=== PATIENT | male | born 1940 | race Caucasian/White ===

== ENCOUNTER 2023-03-09 10:30 | Emergency (ER) | payer MEDICARE, SELFPAY ==
[2023-03-09 10:42] VITALS: BP 125/70; PULSE 60; RESP 22; TEMP 36.7; O2SAT 98; BMI 20.7
--- NOTE | 2023-03-09 10:49 | XR_ITS ---
[address] [address] Patient Name: PORFIRIO GUSMAN MRN: [id number] date: 1940 Sex: M Assigned Patient Location: ER Current Patient Location: ER Accession/Order Number: [id number] Exam Date: 03/09/2023 12:27 Report Date: 03/09/2023 12:49 At the request of: YAHIR BERMUDEZ Procedure: XR lumbar spine 2-3V EXAMINATION: XR lumbar spine 2-3V, [id number] HISTORY: atraumatic pain COMPARISON: None. FINDINGS: There are 5 nonrib-bearing lumbar-type vertebral bodies. Partial sacralization of the L5 vertebral body. No acute fracture or suspicious osseous lesion. Grade 1 versus grade 2 anterolisthesis of L4 on L5. Mild levoscoliosis centered at L3. Mild intervertebral disc height loss throughout the lumbar spine with moderate osteophytosis at L2-L3 and mild/moderate osteophytosis at L3-L4 and L1-L2. Severe calcified atherosclerosis of the abdominal aorta. Several curvilinear radiopaque foci projecting over the abdomen on the lateral view. Moderately above-average colonic stool burden. XR/XR lumbar spine 2-3V IMPRESSION: 1. No acute osseous abnormality. 2. Moderate lumbar spondylosis. 3. Anterolisthesis of L4 on L5. 4. Moderately above-average colonic stool burden. Electronically authenticated by: MARYLU EDWARDS Date: 03/09/2023 12:49
--- NOTE | 2023-03-09 10:50 | ED.BACK1 ---
HPI - Back Pain/Injury General Chief Complaint: Back Pain/Injury Stated Complaint: BACK PAIN Time Seen by Provider: 03/09/23 10:38 Source: patient and family Mode of arrival: walk-in Limitations: no limitations History of Present Illness HPI Narrative: 82-year-old male presents for lower back pain. He states is mostly in the middle but it goes out to the sides. He's had it for 7-10 days and there was no injury or unusual activity. It doesn't radiate into his legs and the pain is moderate. No upper back pain or dysuria or hematuria. Related Data Previous Rx's Medication Instructions Recorded etodolac 400 mg tablet (Lodine) 400 mg PO Q12H PRN pain #20 tabs 03/09/23 Allergies Allergy/AdvReac Type Severity Reaction Status Date / Time bacitracin Allergy Intermediate Verified 03/09/23 10:45 [From Neosporin ([id number]-[id number])] neomycin Allergy Intermediate Verified 03/09/23 10:45 [From Neosporin ([id number]-tha-cqomd)] polymyxin B Allergy Intermediate Verified 03/09/23 10:45 [From Neosporin ([id number]-jfb-[id number])] Review of Systems ROS Narrative A ten point review of systems is negative except as noted above. PFSH PFSH Social History Smoking status: Never smoker Exam Narrative Exam Narrative: Nurses note and vital signs reviewed and patient is not hypoxic. General: The patient appears well and in no apparent distress. Patient is resting comfortably on cart. Skin: Warm, dry, no pallor noted. There is no rash noted. Head: Normocephalic, atraumatic Eye: Normal conjunctiva, no drainage Ears, Nose, Mouth, and Throat: oral mucosa is moist. Nares patent. Mouth without vesicles. Ear canals patent. Tm's without Erythema Cardiovascular: not tachycardic Respiratory: Patient is in no distress, no accessory muscle use, lungs are clear to auscultation, no wheezing, rales or rhonchi Back: no bruise or rash. GI: soft and nontender Musculoskeletal: The patient has no evidence of calf tenderness, no pitting edema, symmetrical pulses noted bilaterally Neurological: A&O, normal speech Psychiatric: Cooperative Constitutional Vital Signs, click to edit/add: Last Vital Signs Temp 98.0 F 03/09/23 10:42 Pulse 60 03/09/23 10:42 Resp 22 03/09/23 10:42 BP 125/70 03/09/23 10:42 Pulse Ox 98 03/09/23 10:42 O2 Del Method Room Air 03/09/23 10:42 Course Vital Signs Vital signs: Vital Signs Temperature 98.0 F 03/09/23 10:42 Pulse Rate 60 03/09/23 10:42 Respiratory Rate 22 03/09/23 10:42 Blood Pressure 125/70 03/09/23 10:42 Pulse Oximetry 98 03/09/23 10:42 Oxygen Delivery Method Room Air 03/09/23 10:42 Temperature 98.0 F 03/09/23 10:42 Pulse Rate 60 03/09/23 10:42 Respiratory Rate 22 03/09/23 10:42 Blood Pressure 125/70 03/09/23 10:42 Pulse Oximetry 98 03/09/23 10:42 Oxygen Delivery Method Room Air 03/09/23 10:42 MDM - Back Pain/Injury MDM Narrative Medical decision making narrative: urinalysis indicates microscopic hematuria. Lumbar films showed no acute findings other than constipation. Because of the microscopic hematuria blood work was ordered which was nonspecific. CAT scan also ordered because of the microscopic hematuria and large renal cysts are noted, unchanged per radiologist. Urine culture is ordered and pending. I suspect that the microscopic hematuria is chronic but I am uncertain. He was recommended MiraLAX and was prescribed dopamine. Treatment diagnosis and follow-up were discussed with the patient. Differential Diagnosis Differential diagnosis: Likely strain of lumbar region, renal colic, pyelonephritis and AAA Lab Data Attestation: I reviewed the patient's lab results. Labs: Lab Results 03/09/23 03/09/23 Range/Units 12:36 14:11 WBC 7.2 (4.0-11.0) 10^3/uL RBC 4.33 L (4.70-6.10) 10^6/uL Hgb 13.2 L (14.0-18.0) g/dL Hct 39.3 L (42.0-54.0) % MCV 90.8 (80.0-94.0) fL MCH 30.5 (25.9-34.0) pg MCHC 33.6 (29.9-35.2) g/dL RDW 15.9 H (11.0-15.0) % Plt Count 157 (150-450) 10^3/uL MPV 9.6 (9.5-13.5) fL Neut % (Auto) 63.5 (43.0-75.0) % Lymph % (Auto) 25.1 (20.5-60.0) % Cherry % (Auto) 8.1 (1.7-12.0) % Eos % (Auto) 1.1 (0.9-7.0) % Baso % (Auto) 0.7 (0.2-2.0) % Neut # (Auto) 4.5 (1.4-6.5) 10^3/uL Lymph # (Auto) 1.8 (1.2-3.8) 10^3/uL Cherry # (Auto) 0.6 (0.3-0.8) 10^3/uL Eos # (Auto) 0.1 (0.0-0.7) 10^3/uL Baso # (Auto) 0.1 (0.0-0.1) 10^3/uL Abs Immat Gran (auto) 0.11 H (0.00-0.03) 10^3/uL Imm/Tot Granulo (auto) 1.5 H (0.0-0.5) % Sodium 137 (136-145) mmol/L Potassium 4.1 (3.5-5.1) mmol/L Chloride 99 (98-107) mmol/L Carbon Dioxide 29.8 (21.0-32.0) mmol/L Anion Gap 12.3 BUN 39.0 H (7.0-18.0) mg/dL Creatinine 1.37 H (0.70-1.30) mg/dL Est GFR ( Amer) 60 (>=60) Est GFR (Non-Af Amer) 50 L (>=60) BUN/Creatinine Ratio 28.5 Glucose 174 H (74-106) mg/dL Calcium 8.8 (8.5-10.1) mg/dL Urine Color Yellow (YELLOW) Urine Clarity Slightly cloudy A (CLEAR) Urine pH 6.0 (5.0-9.0) Ur Specific [place] 1.015 (1.005-1.025) Urine Protein Negative (NEG/TRACE) mg/dL Urine Glucose (UA) Negative (NEGATIVE) mg/dL Urine Ketones Negative (NEGATIVE) mg/dL Urine Occult Blood Large A (NEGATIVE) Urine Nitrite Negative (NEGATIVE) Urine Bilirubin Negative (NEGATIVE) Urine Urobilinogen 0.2 (0.2-1.0) EU/dL Ur Leukocyte Esterase Negative (NEGATIVE) Urine RBC 75-100 A (0-2) #/HPF Urine WBC 0-2 A (NONE SEEN) #/HPF Ur Squamous Epith Cells None seen (NONE/RARE) #/LPF Urine Crystals None seen (None Seen) #/HPF Urine Bacteria None seen (NONE SEEN) #/HPF Urine Casts None seen (NONE SEEN) #/LPF Urine Mucus None seen (NONE SEEN) Imaging Data CT scan - abdomen: Radiologist's impression: bilateral large renal cysts, constipation Discharge Plan Discharge Chief Complaint: Back Pain/Injury Clinical Impression: Low back pain, Hematuria, microscopic, Constipation Patient Disposition: Home, Self-Care Time of Disposition Decision: 15:23 Condition: Good Mode of Transportation: Private Vehicle Prescriptions / Home Meds: New etodolac [Lodine] 400 mg tablet 400 mg PO Q12H PRN (Reason: pain) Qty: 20 0RF Instructions: Constipation (ED), Hematuria (ED), Back Pain (ED) Additional Instructions: MiraLAX for constipation Stand Alone Forms: Portal Instructions Referrals: CHRISTO ORELLANA [Primary Care Provider] - 1 week
[2023-03-09 13:10] LABS: Bilirubin Urine NEGATIVE (NEGATIVE); Blood Urine LARGE (NEGATIVE); Color Urine YELLOW (YELLOW); Glucose Urine UA NEGATIVE (NEGATIVE); Ketones Urine NEGATIVE (NEGATIVE); Leukocyte Esterase Urine NEGATIVE (NEGATIVE); Nitrite Urine NEGATIVE (NEGATIVE); Protein Urine NEGATIVE (NEG/TRACE); Specific Gravity Urine 1.015 (1.005-1.025); Urobilinogen Urine 0.2 EU/dL (0.2-1.0)
[2023-03-09 13:11] LABS: Clarity Urine SLIGHTLY CLOUDY (CLEAR); Urine Microscopic Indicated YES
[2023-03-09 13:15] LABS: Bacteria Urine NONE SEEN #/HPF (NONE SEEN); Cast Seen? NONE SEEN #/LPF (NONE SEEN); Crystals Seen? None Seen #/HPF (None Seen); Mucus Urine NONE SEEN (NONE SEEN); RBC Urine 75-100 #/HPF (0-2); Squamous Epithelial Cell Urine NONE SEEN #/LPF (NONE/RARE); WBC Urine 0-2 #/HPF (NONE SEEN)
--- NOTE | 2023-03-09 13:51 | CT_ITS ---
[address] [address] Patient Name: PORFIRIO GUSMAN MRN: [id number] date: 1940 Sex: M Assigned Patient Location: ER Current Patient Location: Accession/Order Number: [id number] Exam Date: 03/09/2023 14:30 Report Date: 03/09/2023 15:11 At the request of: YAHIR BERMUDEZ Procedure: CT abdomen pelvis wo con EXAMINATION: CT abdomen pelvis wo con HISTORY: hematuria ; bilateral low back pain COMPARISON: CT abdomen pelvis 09/15/2022 TECHNIQUE: Axial, Coronal, and Sagittal images were obtained without and/or with IV contrast as indicated by examination type. Dose reduction techniques were achieved by using automated exposure control and/or adjustment of mA and/or kV according to patient size and/or use of iterative reconstruction technique. FINDINGS: LUNG BASES: Stable 4.0 cm bulla within left lower lobe. LIVER: No enlargement, atrophy, suspicious density, or significant focal lesion. BILIARY: No dilatation or calcification. PANCREAS: No lesion, fluid collection, or abnormal duct dilatation. SPLEEN: No enlargement or focal lesion. ADRENALS: Adreniform hypertrophy bilaterally. KIDNEYS: Stable right renal cysts, largest is 7.9 cm, and nonobstructing stones. Stable left renal cysts, largest is 11.7 cm; no appreciable stones. BOWEL/MESENTERY: Prior resection of proximal ascending colon with small bowel anastomosis. No visible mass, obstruction, or bowel wall thickening. No free air, free fluid, or mesenteric lymphadenopathy. AORTA/VASCULAR: Marked atherosclerotic disease of aorta and branches. No aneurysm. RETROPERITONEUM: No mass or adenopathy. LYMPH NODES: No adenopathy. URINARY BLADDER: No visible focal wall thickening, lesion, or calculus. PELVIC ORGANS: No visible mass. Pelvic organs appropriate for patient age. ABDOMINAL WALL: No mass or hernia. BONES: No bony lesion or fracture. OTHER: Negative. CT/CT abdomen pelvis wo con IMPRESSION: 1.Large bilateral renal cysts and a few nonobstructing right kidney stones; not appreciably changed. No ureteral stones or obstructive uropathy. 2.No acute bowel findings to account for patient's symptoms. 3.Stable chronic changes detailed above. Electronically authenticated by: USHA FERMIN Date: 03/09/2023 15:11
[2023-03-09 14:28] LABS: Basophils Absolute Auto 0.1 10^3/uL (0.0-0.1); Basophils Percent Auto 0.7 % (0.2-2.0); Eosinophils Absolute Auto 0.1 10^3/uL (0.0-0.7); Eosinophils Percent Auto 1.1 % (0.9-7.0); Hematocrit 39.3 % (42.0-54.0); Hemoglobin 13.2 g/dL (14.0-18.0); Immature Granulocytes Abs Auto 0.11 10^3/uL (0.00-0.03); Immature Granulocytes Pct Auto 1.5 % (0.0-0.5); Lymphocytes Absolute Auto 1.8 10^3/uL (1.2-3.8); Lymphocytes Percent Auto 25.1 % (20.5-60.0); Mean Corpuscular HGB Conc 33.6 g/dL (29.9-35.2); Mean Corpuscular Hemoglobin 30.5 pg (25.9-34.0); Mean Corpuscular Volume 90.8 fL (80.0-94.0); Mean Platelet Volume 9.6 fL (9.5-13.5); Monocytes Absolute Auto 0.6 10^3/uL (0.3-0.8); Monocytes Percent Auto 8.1 % (1.7-12.0); Neutrophils Absolute Auto 4.5 10^3/uL (1.4-6.5); Neutrophils Percent Auto 63.5 % (43.0-75.0); Platelet Count 157 10^3/uL (150-450); Red Blood Count 4.33 10^6/uL (4.70-6.10); Red Cell Distribution Width 15.9 % (11.0-15.0); White Blood Count 7.2 10^3/uL (4.0-11.0)
[2023-03-09 14:43] LABS: Anion Gap 12.3; BUN Creatinine Ratio 28.5; Calcium 8.8 mg/dL (8.5-10.1); Carbon Dioxide 29.8 mmol/L (21.0-32.0); Chloride 99 mmol/L (98-107); Estimated GFR (African America 60 (>=60); Estimated GFR (Non-African Ame 50 (>=60); Glucose 174 mg/dL (74-106); Potassium 4.1 mmol/L (3.5-5.1); Sodium 137 mmol/L (136-145)
== END 2023-03-09 15:35 | disposition home or self-care (01) ==
PROVIDERS: Emergency Provider Emergency Medicine; PCP Family Medicine
DX: M54.50 Low back pain, unspecified (principal); K59.00 Constipation, unspecified; R31.29 Other microscopic hematuria
CPT/HCPCS: 36415; 72100; 74176; 80048; 81001; 85025; 87086; 87150; 87186; 99285

== ENCOUNTER 2023-07-14 02:26 | Emergency (ER) | payer MEDICARE, SELFPAY ==
[2023-07-14] MEDS: LIDOCAINE HCL 1%-EPINEPHRINE 1:100,000 20 ML MDV 10 ML INJ (02:30)
[2023-07-14 02:33] VITALS: BP 165/80; PULSE 73; RESP 18; TEMP 36.5; O2SAT 100; BMI 30.4
--- NOTE | 2023-07-14 02:48 | ED.GENADUL1 ---
HPI - General Adult General Chief complaint: Wound/Laceration Stated complaint: actively bleeding in chest Time Seen by Provider: 07/14/23 02:31 Source: patient and family (Son) Mode of arrival: Wheelchair Limitations: no limitations History of Present Illness HPI narrative: Is 83-year-old male is brought emergency department by his son for evaluation of active bleeding Is left anterior chest wall where he had a skin lesion removed on Monday morning at [facility] in [place]. The area was cauterized. He did not have any bleeding until several hours ago when he started having acute active bleeding that was soaking through the gauze on his chest. The patient also believes that he is in atrial fibrillation. He went to the soil expert's office earlier today and had an EKG done but they do not know the results of the EKG. His son states that he is having episodes of exertional dyspnea. He is not having any chest pain at this time. He has not had a fever but is chilled because it is cold outside. He is not on any blood thinners. Related Data Previous Rx's Medication Instructions Recorded etodolac 400 mg tablet (Lodine) 400 mg PO Q12H PRN pain #20 tabs 03/09/23 Allergies Allergy/AdvReac Type Severity Reaction Status Date / Time bacitracin Allergy Intermediate Verified 03/09/23 10:45 [From Neosporin ([id number]-[id number])] neomycin Allergy Intermediate Verified 03/09/23 10:45 [From Neosporin ([id number]-ozl-[id number])] polymyxin B Allergy Intermediate Verified 03/09/23 10:45 [From Neosporin (kxx-swo-saueg)] Review of Systems ROS Status of ROS 10 or more systems reviewed and unremarkable except as noted in history and below [facility] Social History Smoking status: Never smoker Exam Narrative Exam Narrative: Nurses note and vital signs reviewed and patient is not hypoxic. Blood pressure noted to be elevated at 165/80 General: Alert, thin, mildly pale male resting comfortably on the stretcher, no respiratory distress Skin: approximately 1.5 x 1.5 cm skin lesion on the left anterior chest wall. There is active venous bleeding from several sites that appeared to have formally been cauterized, no arterial bleeding noted, no sign of local infection. Head: Normocephalic, atraumatic Eye: Normal conjunctiva, no drainage, EOMI. PERRL Ears, Nose, Mouth, and Throat: oral mucosa is moist. Nares patent. Mouth without vesicles. Cardiovascular: Regular rate and rhythm, pulses are brisk and equal bilaterally, pacemaker noted over left anterior chest wall Respiratory: Patient is in no distress, no accessory muscle use, lungs are clear to auscultation, no wheezing, rales or rhonchi Back: non-tender, no CVA tenderness bilaterally to percussion. GI: Normal bowel sounds, no tenderness to palpation, no masses appreciated. No rebound, guarding, or rigidity noted. Musculoskeletal: No notable swelling, no calf tenderness, moving all extremities Neurological: A&O x4, normal speech Psychiatric: Cooperative Constitutional Vital Signs, click to edit/add: Last Vital Signs Temp 97.7 F 07/14/23 02:33 Pulse 73 07/14/23 02:33 Resp 18 07/14/23 02:33 BP 165/80 H 07/14/23 02:33 Pulse Ox 100 07/14/23 02:33 O2 Del Method Room Air 07/14/23 02:33 Course Vital Signs Vital signs: Vital Signs Temperature 97.7 F 07/14/23 02:33 Pulse Rate 73 07/14/23 02:33 Respiratory Rate 18 07/14/23 02:33 Blood Pressure 165/80 H 07/14/23 02:33 Pulse Oximetry 100 07/14/23 02:33 Oxygen Delivery Method Room Air 07/14/23 02:33 Temperature 97.7 F 07/14/23 02:33 Pulse Rate 73 07/14/23 02:33 Respiratory Rate 18 07/14/23 02:33 Blood Pressure 165/80 H 07/14/23 02:33 Pulse Oximetry 100 07/14/23 02:33 Oxygen Delivery Method Room Air 07/14/23 02:33 Medical Decision Making MDM Narrative Medical decision making narrative: Procedure note: Management of bleeding left anterior chest wall. The site of the prior skin lesion that was bleeding was infiltrated with 1 percent lidocaine with epinephrine. Topical combat gauze/quick clot was applied topically and pressure was applied for several minutes. On re-evaluation, the bleeding had stopped. He will be monitored for a period of time to ensure that the bleeding does not recur. On re-evaluation, there is no active bleeding. His son was given the remainder of the combat gauze and instructed to use it if needed for recurrent bleeding. I reviewed his chest xray and it is clear of any infiltrate or effusion, shows an aortic graft, pacemaker in place ECG Data Attestation: I personally reviewed and interpreted this ECG as follows: (Paced rhythm at 69 beats for minute) Discharge Plan Discharge Chief Complaint: Wound/Laceration Clinical Impression: Bleeding from open wound of chest wall Patient Disposition: Home, Self-Care Time of Disposition Decision: 03:22 Condition: Good Prescriptions / Home Meds: No Action etodolac [Lodine] 400 mg tablet 400 mg PO Q12H PRN (Reason: pain) Qty: 20 0RF Stand Alone Forms: Portal Instructions Referrals: CHRISTO ORELLANA [Primary Care Provider] - 1 week
--- NOTE | 2023-07-14 02:50 | XR_ITS ---
The [address] [address] Patient Name: PORFIRIO GUSMAN MRN: [id number] date: 1940 Sex: M Assigned Patient Location: ER Current Patient Location: ED.MAIN Accession/Order Number: [id number] Exam Date: 07/14/2023 03:00 Report Date: 07/14/2023 03:15 At the request of: MACEY MARKER Procedure: XR chest 1V EXAM: XR chest 1V HISTORY: exertional dyspnea COMPARISON: Chest x-ray, 11/24/2022. TECHNIQUE: AP upright portable chest x-ray. FINDINGS: Presumed artifact external to the patient is seen in the medial left upper lobe region. Left subclavian dual-chamber cardiac pacemaker is unchanged. Cardiac size, mediastinal contour and pulmonary vascularity are within normal limits. The lungs and pleural spaces appear clear. XR/XR chest 1V IMPRESSION: Nonacute chest. Electronically authenticated by: TANIKA KELLY Date: 07/14/2023 03:15
[2023-07-14 03:18] VITALS: PULSE 64
--- NOTE | 2023-07-14 03:19 | PC.NURSE ---
Pt presents to ER for bleeding at an op site on the anterior left chest Pt had a mass removed on Monday and it started bleeding and he was unable to get it to stop Pt's son brought him in Pressure was applied immediately with gauze used lidocaine with epi and Combat Gauze Bleeding controlled at this time Pt was monitored for 20 minutes Pt had said that he felt like he was in a-fib triggering an EKG to be done A chest xray was performed and Dr. Anguiano placed the pt ready for discharge
--- NOTE | 2023-07-14 23:43 | ECG_ITS ---
The [facility] Test Date: 2023-07-14 Pat Name: PORFIRIO GUSMAN Department: Room: - Gender: Male Jerker: : 1940 Requested By: [id number] Order Number: [id number] Reading MD: NAVIN MUÑOZ Measurements Intervals [place] Rate: 69 P: -[id number] ID: [id number] QRS: -71 QRSD: 166 T: 95 QT: 454 QTc: 474 Interpretive Statements Regular rhythm w/ RIGHT BUNDLE BRANCH BLOCK configuration. 3631 Inferior myocardial infarction, likely old. 5233 Voltage criteria for LVH 9150 abnormal ECG No previous ECG available for comparison Electronically Signed On 07-16-2023 16:45:04 EST by NAVIN MUÑOZ
== END 2023-07-14 03:35 | disposition home or self-care (01) ==
PROVIDERS: Emergency Provider Emergency Medicine; PCP Family Medicine
DX: L76.21 Postprocedural hemorrhage of skin and subcutaneous tissue following a dermatologic procedure (principal); R06.00 Dyspnea, unspecified
CPT/HCPCS: 71045; 93005; 99284

== ENCOUNTER 2023-10-28 18:22 | Inpatient (IN) | payer MEDICARE, SELFPAY ==
[2023-10-28] VITALS (11 sets, daily range): BP systolic 117–126; BP diastolic 49–87; PULSE 72–118; TEMP 36.3–37.5; O2SAT 90–98; BMI 10.1; BMI 22.7
--- OUTSIDE RECORDS SUMMARY | 2023-10-28 18:30 | XMS_ITS | CCD ---
Author Organization [facility] Care Team Providers Care Roll Clamp Operator Name Role Phone Cesar Laguna Unavailable Unavailable Unavailable Amy Zuñiga MD Primary Care Provider Finn SOCIAL SCIENCES DEPARTMENT CHAIR.DOGMAN/WOMAN, Pamela Unavailable Amy Zuñiga Unavailable MD Amy Zuñiga Primary Care Provider DO Jordan Gallegos Admit Provider DO Jordan Gallegos Attending Provider NELA Fenton Other Provider Unavailable DO Sara Valdes Other Provider MD Courtney Fleming Other Provider MD Roel Mireles Other Provider MD Edel Cesar Other Provider MD Magdaleno Owusu Other Provider KEKE Hopkins Other Provider MD Nica García Other Provider MD Susan Shaw Other Provider MD Domenico Isidro Other Provider Elodia PANAMA HAT BLOCKER- Marcia Sanchez Other Provider [phone] MD Lisy Ugarte Other Provider Ayana Miles Unavailable CAITLYN MAGAÑA Consulting Unavailable REYNACHRISTO Primary Care Unavailable AMI ., CAITLYN Attending Unavailable AMI ., CAITLYN Admitting Unavailable TRABOULSSI, DR HOLLINGSWORTH Consulting Unavailab le REYNA, CHRISTO THEE Primary Care Unavailable TRABOULSSI, DR HOLLINGSWORTH Attending Unavailab le TRABOULSSI, DR HOLLINGSWORTH Admitting Unavailab le ZUÑIGA ., DR AMY Dye Primary Care Unavailable ZUÑIGA ., DR AMY Dye Consulting Unavailable ZUÑIGA ., DR AMY Dye Attending Unavailable ZUÑIGA ., DR AMY Dye Admitting Unavailable JORDAN CHEN Consulting Unavailable AMI ., CAITLYN Attending Unavailable AMI ., CAITLYN Admitting Unavailable ZUÑIGA ., DR AMY Dye Primary Care Unavailable AMI ., CAITLYN Consulting Unavailable ZIEBER, DR USHA Jay Consulting Unavailable AMI ., CAITLYN Attending Unavailable AMI ., CAITLYN Admitting Unavailable ZUÑIGA ., DR AMY Dye Primary Care Unavailable AMI ., CAITLYN Consulting Unavailable RASTEJEET ANDUJAR Consulting Unavailable HOY ., DR MUNGUIA Consulting Unavailable HOY ., DR MUNGUIA Attending Unavailable HOY ., DR MUNGUIA Admitting Unavailable ZUÑIGA ., DR AMY Dye Primary Care Unavailable HAY ., DR HOFF Consulting Unavailable YAHIR BERMUDEZ Consulting Unavailable CARMELA, MARLENE Consulting Unavailable PIERRE, MARCIA Consulting Unavailable DARAMOLA, JOAQUIN Consulting Unavailable ZUÑIGA ., DR AMY Dye Consulting Unavailable ZUÑIGA ., DR AMY Dye Primary Care Unavailable ZUÑIGA ., DR AMY Dye Attending Unavailable ZUÑIGA ., DR AMY Dye Admitting Unavailable ZUÑIGA ., DR AMY Dye Consulting Unavailable ZUÑIGA ., DR AMY Dye Primary Care Unavailable ZUÑIGA ., DR AMY Dye Attending Unavailable ZUÑIGA ., DR AMY Dye Admitting Unavailable ZIEBER, DR USHA Jay Consulting Unavailable ZUÑIGA ., DR AMY Dye Consulting Unavailable ZUÑIGA ., DR AMY Dye Primary Care Unavailable ZUÑIGA ., DR AMY Dye Attending Unavailable ZUÑIGA ., DR AMY Dye Admitting Unavailable JENY, DR USHA Jay Consulting Unavailable MD Amy Zuñiga Primary Care Provider DO Jordan Gallegos Admit Provider DO Jordan Gallegos Attending Provider [phone] NELA Fenton Other Provider Unavailable DO Sara Valdes Other Provider MD Courtney Fleming Other Provider MD Roel Mireles Other Provider MD Edel Cesar Other Provider MD Magdaleno Owusu Other Provider KEKE Hopkins Other Provider MD Nica García Other Provider MD Susan Shaw Other Provider MD Domenico Isidro Other Provider Elodia [facility] Marcia Sanchez Other Provider MD Lisy Ugarte Other Provider Carolynn Jahaira Mosqueda Attending Provider MD Edel Cesar Attending Provider MD Amy Zuñiga Primary Care Provider MD Edel Cesar Referring Provider MD Roel Mireles Attending Provider MD Roel Mireles Attending Provider MD Christo Saab Primary Care Provider Finn [employer]ES DEPARTMENT CHAIR.DOGMAN/WOMAN, Pamela Unavailable AMY ZUÑIGA Primary Care Unavailable EFREN CARBAJAL Attending Unavailable EFREN CARBAJAL Referring Unavailable AMY ZUÑIGA Primary Care Unavailable Yogesh, Dr. Amy Ortega Primary Care Unavailab alisha Cesar, Dr. Hollingsworth Attending Unavaila ble Yogesh, Dr. Amy Ortega Primary Care Unavailab alisha Mireles II, Dr. Roel Parish Attending Unavailable Yogesh, Dr. Amy Ortega Primary Care Unavailab alisha Mireles II, Dr. oRel Parish Attending Unavailable Yogesh, Dr. Amy Ortega Primary Care Unavailab alisha Mireles II, Dr. Roel Parish Attending Unavailable Aline HUNTER, Dr. Roel Parish Referring Unavailable Yogesh, Dr. Amy Ortega Primary Care Unavailab le Traboulssi, Dr. Hollingsworth Attending Unavaila ble [place], Dr. Guerrero Primary Care Unavailable Traboulssi, Dr. Hollingsworth Attending Unavaila ble Traboulssi, Dr. Hollingsworth Referring Unavaila ble Zuñiga, Dr. Amy Ortega Primary Care Unavailab le Traboulssi, Dr. Hollingsworth Attending Unavaila ble Traboulssi, Dr. Hollingsworth Referring Unavaila ble Zuñiga, Dr. Amy Ortega Primary Care Unavailab le Traboulssi, Dr. Hollingsworth Attending Unavaila ble Traboulssi, Dr. Hollingsworth Referring Unavaila ble Zuñiga, Dr. Amy Ortega Primary Care Unavailab le McGuinn II, Dr. Roel Parish Attending Unavailable McGuinn II, Dr. Roel Parish Referring Unavailable Zuñiga, Dr. Amy Ortega Primary Care Unavailab le Zuñiga, Dr. Amy Ortega Primary Care Unavailab le Zuñiga, Dr. Amy Ortega Primary Care Unavailab le Zuñiga, Dr. Amy Ortega Primary Care Unavailab le Zuñiga, Dr. Amy Ortega Primary Care Unavailab Christo Jackson Primary Care Physician [phone] Amy Zuñiga MD Primary Care Provider MD Christo Saab Primary Care Provider [phone] MD Roel Mireles Attending Provider DENISHA Reis Emergency Provider [phone] MD Ashwini Clancy Admit Provider MD Ashwini Clancy Attending Provider [phone] TORRIE BARAJAS Attending Unavailable MD Edel Cesar Attending Provider EDEL CESAR Attending Unavailable AMY ZUÑIGA Primary Care Unavailable EDEL CESAR Referring Unavailable AMY ZUÑIGA Primary Care Unavailable EDEL CESAR Attending Unavailable AMY ZUÑIGA Primary Care Unavailable Efren Carbajal DO Unavailable EFREN CARBAJAL Attending Unavailable EFREN CARBAJAL Referring Unavailable AMY ZUÑIGA EDELLA Primary Care Unavailable ZUÑIGA, AMY EDELLA Primary Care Unavailable EFREN CARBAJAL Attending Unavailable ZUÑIGA, AMY EDELLA Primary Care Unavailable GOSTEFREN PIKE Attending Unavailable ZUÑIGA, AMY EDELLA Primary Care Unavailable GOSTSHAHZAD, EFREN Garcia Attending Unavailable EFREN CARBAJAL Attending Unavailable ZUÑIGA, AMY EDELLA Primary Care Unavailable Christo Saab Attending Unavailable Christo Saab Attending Unavailable Christo Saab Attending Unavailable Christo Saab Attending Unavailable Lisa Howard Attending Unavailable Christo Saab Attending Unavailable JACKLYN KELLY Attending Unavailable AMY ZUÑIGA Attending Unavailable Christo Saab Admitting Unavailable Christo Saab Attending Unavailable Christo Saab Attending Unavailable Christo Saab Attending Unavailable Christo Saab Attending Unavailable Christo Saab Attending Unavailable Christo Saab Primary Care Unavailable Roel Mirelse Admitting Unavail able Roel Mireles Attending Unavail able Edel Cesar Attending Unavailable Saadia Mourleannaf Referring Unavailable Amy Zuñiga Primary Care Unavailable Trablana, Mourhaf Admitting Unavailable Reyna Christo Marnie Primary Care Unavailable Edel Cesar Attending Unavailable Edel Cesar Admitting Unavailable Roel Mireles Admitting Unavail able Roel Mireles Attending Unavail able Christo Saab Primary Care Unavailable Christo Saab Primary Care Unavailable Edel Cesar Attending Unavailable Saadia Momackenzief Referring Unavailable Baldemar Cesarf Admitting Unavailable Roel Mireles Admitting Unavail able Roel Mireles Attending Unavail able Amy Zuñiga E Primary Care Unavailable Reyna Christo E Primary Care Unavailable Ashwini Clancy Admitting Unavailable Ashwini Clancy Attending Unavailable Roel Mireles Attending Unavail able Roel Mireles Admitting Unavail able Christo Saab Primary Care Unavailable Allergies Allergy Classification Reported Allergen(s) Allergy Type Date of Onset Reaction(s) Facility (9 sources) Bacitracin / Neomycin / Polymyxin B; Translations: [Neosporin OINT] Drug Allergy [facility] Work Phone: (20 sources) bacitracin / neomycin / polymyxin b; Translations: [NEOMYCIN-BACIT RACIN-POLYMYXIN ] Drug Allergy 9 Unknown (qualifier value) [facility] (11 sources) Bacitracin; Translations: [bacitracin] Drug Allergy 8 Unknown Reaction, Unknown [facility] (10 sources) Haloperidol; Translations: [haloperidol] Drug Allergy 3 Unknown Reaction, Unknown [facility] (9 sources) Neomycin; Translations: [neomycin] Drug Allergy [address] [facility] (10 sources) polymyxin B; Translations: [polymyxin B] Allergy to substance 3 Blister, Unknown [facility] (3 sources) Bacitracin / Neomycin / Polymyxin B; Translations: [Neosporin] Drug Allergy 4 Unknown [facility] (1 source) Haloperidol Drug Allergy 1 [facility] (3 sources) Bacitracin / Polymyxin B; Translations: [BACITRACIN ZINC-POLYMYXIN B] Drug Allergy 3 [facility] (3 sources) Colloidal oatmeal; Translations: [COLLOIDAL OATMEAL] Drug Allergy 3 [facility] Work Phone: Medications Current Medications Medication Drug Class(es) Dates Sig (Normalized) Sig (Original) carbidopa 50 mg / levodopa 200 mg extended release oral tablet (20 sources) Aromatic Amino Acid Decarboxylation Inhibitor, Aromatic Amino Acid Start: 08-29-2023 End: 09-05-2024 take 1 tablet by mouth three times daily, then take 2 tablets by mouth twice daily in the morning carbidopa-levodopa CR (SINEMET CR) 50-200 mg per tablet Indications: Primary parkinsonism (HCC) , Motor fluctuations related to medication use in Parkinson's disease (HCC) Take 1 tablet by mouth three times a day AND 2 tablets two times a day. [AM &Bedtime]. 630 tablet 3 09/06/2023 09/05/2024 Active Start: 07-22-2023 End: 07-28-2023 take 1 tablet by mouth four times daily in the morning, then take 2 tablets by mouth in the evening, then take 6 tablets by mouth in the evening Carbidopa-Levodopa Discontinued 1 TAB PO Four times daily July 22, 2023 12:00am July 28, 2023 1:22pm TAKE 1 TABLET AT 6 AM, 10 AM, 2 PM, AND 6 PM Start: 02-20-2023 take 1 tablet by cullen th four times daily carbidopa-levodopa 50 mg-200 mg ER Tab 1 tab(s), Oral, QID, Refill(s) 0 Start Date: 02/20/23 Status: Ordered Start: 01-30-2023 End: 08-29-2023 carbidopa-levodopa CR (DORIAN ET CR) 50-200 mg per tablet Take 1 tablet of controlled release levodopa/carbidopa 50/200 mg at 6 AM, 10 AM, 2 PM, and 6 PM 540 tablet 3 01/30/2023 08/29/2023 Discontinued Start: 01-30-2023 carbidopa-levo dopa (SINEMET 25-100) 25-100 mg per tablet Take 1.5 tablets of immediate release levodopa/carbidopa 25/100 mg at 6 AM, 10 AM, 2 PM, and 6 PM 540 tablet 3 01/30/2023 Active Start: 06-21-2022 End: 01-30-2023 take 1.5 tablets by mouth four times daily Carbidopa-Levodopa Active 1.5 TAB PO Four times daily September 25, 2022 12:00am Start: 06-21-2022 End: 01-30-2023 take 1 tablet by mouth four times daily Carbidopa-Levodopa Discontinued 1 TAB PO Four times daily September 25, 2022 12:00am December 12, 2022 12:33pm Start: 12-16-2020 carbidopa-levo dopa (Sinemet) 25-100 mg tablet Take by mouth. 0 12/16/2020 Active take 1 tablet by cullen th in the morning, then take 2 tablets by mouth in the evening, then take 6 tablets by mouth in the evening Carbidopa-Levodopa ER 50-200 MG TAKE 1 TABLET AT 6 AM, 10 AM, 2 PM, AND 6 PM Oral for 90 Days Active Comment on above: Take 1.5 tablets by mouth four times daily. Take 1.5 tablets of immediate release levodopa/carbidopa 25/100 mg at 6 AM, 10 AM, 2 PM, and 6 PM Take 1 tablet by [facility] four times daily. Take 1 tablet of controlled release levodopa/carbidopa 50/200 mg at 6 AM, 10 AM, 2 PM, and 6 PM Take 1.5 tablets of immediate release levodopa/carbidopa 25/100 mg at 6 AM, 10 AM, 2 PM, and 6 PM Take 1 tablet of con trolled release levodopa/carbidopa 50/200 mg at 6 AM, 10 AM, 2 PM, and 6 PM Take 1 tablet by [facility] three times a day AND 2 tablets once daily. [Bedtime]. Take 1 tablet by [facility] three times a day AND 2 tablets two times a day. [AM &Bedtime]. cholecalciferol 0.025 mg oral tablet (20 sources) Vitamin D Start: 2022 take 25 ug by mouth once daily Cholecalciferol (Vitamin D3) Active 25 MCG PO Daily July 28, 2023 12:00am Start: 09-25-2022 End: 07-21-2023 take 50 ug by mouth once daily Cholecalciferol (Vitami n D3) Discontinued 50 MCG PO Daily September 25, 2022 12:00am July 21, 2023 12:13pm take 1 capsule by [facility] once daily Cholecalciferol, Vitamin D3, 25 mcg (1,000 unit) cap Indications: Postsurgical hypothyroidism , Unspecified vitamin D deficiency Take 1,000 Units by mouth once daily. 0 Active take 1 tablet by [facility] once daily Vitamin D3 50 MCG (1999 UT) Oral Tablet Take 1 tablet daily Quantity: 0 Refills: 0 Ordered: 08-Oct-2021 DO Active take 1 capsule by [facility] once daily Cholecalciferol 50 MCG (2000 UT) 1 capsule Orally Once a day Active Comment on above: Take 1,000 Units by mouth once daily. entacapone 200 mg oral tablet (20 sources) Pryrtsks-R-Vywotmvu ansferase Inhibitor Start: 07-28-2023 take 1 dose by mouth three times daily Entacapone Active 200 MG PO Three times daily July 28, 2023 12:00am administer at the same time as l-dopa/carbidopa dose Start: 09-25-2022 take 1 dose by mouth four times daily Entacapone Active 200 MG PO Four times daily September 25, 2022 12:00am administer at the same time as l-dopa/carbidopa dose Start: 06-10-2020 End: 07-21-2023 take 1 dose by mouth three times daily Entacapone Discontinued 200 MG PO Three times daily September 25, 2022 12:00am July 21, 2023 3:45pm administer at the same time as l-dopa/carbidopa dose flecainide acetate 50 mg oral tablet (5 sources) Antiarrhythmic Start: 07-21-2023 take 50 mg by mouth every twelve hours Flecainide Active 50 MG PO Q12H July 21, 2023 12:00am Start: 07-05-2023 End: 07-04-2024 take 1 tablet by mouth twice daily flecainide (Tambocor) 50 mg tablet Indications: Persistent atrial fibrillation (CMS/HCC) Take 1 tablet (50 mg) by mouth 2 times a day. 60 tablet 11 07/05/2023 07/04/2024 Active levodopa 42 mg inhalation powder (20 sources) Aromatic Amino Acid Start: 07-28-2023 Levodopa ( Inbrija) 42 mg capsule, w/inhalation device Active 84 MG INHALATION Three times daily July 28, 2023 12:00am Start: 11-29-2022 End: 12-17-2023 take 2 capsules by mouth five times daily as needed levodopa (INBRIJA) 42 mg Indications: Motor fluctuations related to medication use in Parkinson's disease (HCC) Inhale 2 capsules by mouth as needed for medication wearing off episodes. Use no more than five times a day. 300 capsule 5 06/20/2023 12/17/2023 Active Start: 06-21-2022 End: 09-19-2022 take 2 capsules by inhalation five times daily as needed levodopa (INBRIJA) 42 mg Inhale 2 capsules as instructed as needed. Maximum 5 times daily. 60 capsule 3 06/21/2022 09/19/2022 Active take 2 capsules by i nhalation three times daily levodopa (Inbrija) 42 mg capsule, w/inhalation device Place 2 capsules into inhaler and inhale 3 times a day. 0 Active Comment on above: Inhale 2 capsules as instructed as needed. Maximum 5 times daily. Inhale 2 capsules as instructed five times daily. Inhale 2 capsules as instructed five times a day. Inhale 2 capsules by mouth as needed for medication wearing off episodes. Use no more than five times a day. melatonin 10 mg oral tablet (4 sources) Start: 07-21-2023 take 15 mg by mouth at bedtime Melatonin Active 15 MG PO Bedtime July 21, 2023 12:00am Start: 02-20-2023 take 1 tablet by cullen th once daily at bedtime as needed Melatonin 5 mg oral tablet 5 mg = 1 tab(s), Oral, Once a day (at bedtime), PRN for insomnia, Refills(s) 0 Start Date: 02/20/23 Status: Ordered Start: 02-20-2023 take 1 tablet by cullen th once daily at bedtime as needed melatonin 10 mg oral tablet 10 mg = 1 tab(s), Oral, Once a day (at bedtime), PRN Insomnia, Refills(s) 0 Start Date: 02/20/23 Status: Ordered rasagiline 1 mg oral tablet (20 sources) Monoamine Oxidase Inhibitor Start: 07-28-2023 take 1 mg by mouth once daily Rasagiline Active 1 MG PO Daily July 28, 2023 12:00am Start: 01-16-2020 End: 07-21-2023 take 1 mg by mouth once daily Rasagiline Discontinued 1 MG PO Daily September 25, 2022 12:00am July 21, 2023 3:52pm spironolactone 25 mg oral tablet (12 sources) Aldosterone Antagonist Start: 12-12-2022 take 25 mg by mouth once daily Spironolactone Active 25 MG PO Daily December 11, 2022 11:00pm vitamin B12 (20 sources) Vitamin B12 Start: 09-25-2022 take 1000 ug by mouth once daily Cyanocobalamin (Vitamin B-12) Active 1000 MCG PO Daily September 25, 2022 12:00am Start: 09-25-2022 take 50 ug by mouth once daily Cyanocobalamin (Vitamin B-12) Active 50 MCG PO Daily September 25, 2022 12:00am Start: 09-25-2022 take 3000 ug by mout h once daily Cyanocobalamin (Vitamin B-12) Active 3000 MCG PO Daily September 25, 2022 1:00am Start: 09-25-2022 take 3000 ug by mout h once daily Cyanocobalamin (Vitamin B-12) Active 3000 MCG PO Daily September 25, 2022 12:00am Start: 01-16-2020 Vitamin B12 Re fills(s) 0 Start Date: 01/16/20 Status: Ordered Start: 11-03-2009 cyanocobalamin (VITAMIN B-12 500 MCG TAB) Take one(1) tablet daily. 0 0 11/03/2009 Active take 1 tablet by cullen th once daily cyanocobalamin, vitamin B-12, (Vitamin B-12) 1,000 mcg tablet extended release Take 1 tablet (1,000 mcg) by mouth once daily. 0 Active Cyanocobalamin 3 000 MCG as directed Orally Active Comment on above: Take one(1) tablet d aily. Vitamin D3 (1 source) Start: 01-16-2020 Vitamin D3 Refills(s) 0 Start Date: 01/16/20 Status: Ordered vitamin D3-vitamin K2 1,250-200 mcg capsule (2 sources) take 1 tablet by mouth once daily vitamin D3-vitamin K2 1,250-200 mcg capsule Take 1 tablet by mouth once daily. 0 Active Completed/Discontinued Medications Medication Drug Class(es) Dates Sig (Normalized) Sig (Original) allopurinol 300 mg oral tablet (19 sources) Xanthine Oxidase Inhibitor Start: 02-02-2015 take 1 tablet by mouth once daily allopurinol (ZYLOPRIM) 300 mg tablet Take 1 tablet by mouth once daily. 0 02/02/2015 Active Comment on above: Take 1 tablet by cullen th once daily. apixaban 5 mg oral tablet (20 sources) Factor Xa Inhibitor Start: 10-08-2021 End: 09-27-2022 take 1 tablet by mouth twice daily ELIQUIS 5 mg tab(s) Take 5 mg by mouth twice daily. 0 04/12/2022 Active Comment on above: Take 5 mg by mouth t wice daily. ascorbic acid 113 mg / beta carotene 7160 mg / cuprous oxide 0.4 mg / dl-alpha tocopheryl acetate 100 unt / zinc oxide 17.4 mg oral tablet (7 sources) Vitamin C Start: 12-12-2022 End: 07-28-2023 take 2 tablets by mouth twice daily at dinner Vitamins A,C,C-Blfi-Uxbaoa (Preservision Areds) 2,148 mcg-113 mg-45 mg-17.4mg Tablet Discontinued 2 TAB PO Twice daily December 11, 2022 11:00pm July 28, 2023 1:15pm administer with AM and PM meals aspirin 81 mg oral tablet (19 sources) Platelet Aggregation Inhibitor, Nonsteroidal Anti-inflammatory Drug Start: 09-25-2022 End: 09-27-2022 take 81 mg by mouth once daily Aspirin Discontinued 81 MG PO Daily September 25, 2022 12:00am September 27, 2022 2:16pm Start: 10-08-2021 take 1 tablet by cullen th two times weekly Aspirin EC 81 MG Oral Tablet Delayed Release 1 tablet twice weekly Quantity: 25 Refills: 3 Ordered: 24-Feb-2022 Edel Cesar MD Start : 08-Oct-2021 Active Start: 04-23-2009 aspirin(ECOTRI N LOW STRENGTH 81 MG TAB) Take one(1) tablet daily. 0 0 04/23/2009 Active Comment on above: Take one(1) tablet d elisha. atorvastatin 20 mg oral tablet (20 sources) HMG-CoA Reductase Inhibitor Start: 01-16-20 End: 07-21-20 take 20 mg by mouth at bedtime Atorvastatin Discontinued 20 MG PO Bedtime September 25, 2022 12:00am July 21, 2023 12:13pm Comment on above: Take 20 mg by mouth once daily. clindamycin 300 mg oral capsule (8 sources) Lincosamide Antibacterial Start: 09-27-19 End: 12-14-19 23 take 600 mg by mouth three times daily Clindamycin Hcl Discontinued 600 MG PO Three times daily 12 September 27, 2022 12:00am December 13, 2022 9:23am clonazePAM 0.5 mg oral tablet (20 sources) Benzodiazepine Start: 05-11-20 clonazePAM (KLONOPIN) 0.5 mg tablet Take by mouth. 0 05/11/2021 Active Comment on above: Take by mouth. donepezil hydrochloride 10 mg oral tablet (20 sources) Start: 02-21-20 take 1 tablet by mouth once daily, then take 1 tablet by mouth once daily donepezil (ARICEPT) 10 mg tablet Take 1 tablet by mouth once daily. Take 1 tablet by mouth daily. 30 tablet 11 07/13/2023 Active Start: 05-30-2022 End: 07-13-2023 take 1 tablet by mouth once daily donepezil (ARICEPT) 5 mg tablet Take 1 tablet by mouth daily. 30 tablet 11 07/10/2023 07/13/2023 Discontinued Comment on above: TAKE 1 TABLET BY CULLEN TH EVERY MORNING FOR THE FIRST MONTH Take 1 tablet by cullen th daily. Take 1 tablet by cullen th once daily. Take 1 tablet by mouth daily. furosemide 40 mg oral tablet (20 sources) Loop Diuretic Start: 05-05-2023 take 1 tablet by mouth three times daily furosemide (LASIX) 40 mg tablet Take 1 tablet by mouth three times a day. 0 05/05/2023 Active Start: 12-12-2022 take 40 mg by mouth once daily Furosemide Active 40 MG PO Daily December 11, 2022 11:00pm Comment on above: Take 1 tablet by cullen th three times a day. lactulose 667 mg/ml oral solution (13 sources) Osmotic Laxative Start: 09-25-2022 End: 12-12-2022 take 10 g by mouth once daily Lactulose Discontinued 10 GM PO Daily September 25, 2022 12:00am December 12, 2022 12:36pm Start: 03-29-2016 lactulose (DUP HALAC, CONSTULOSE) 10 gram/15 mL solution TAKE 1 TEASPOONFUL BY MOUTH TWICE A DAY 750 mL 4 03/29/2016 Active Lactulose 10 g D aily Active Comment on above: TAKE 1 TEASPOONFUL B Y MOUTH TWICE A DAY levothyroxine sodium 0.05 mg oral tablet (20 sources) l-Thyroxine Start: 07-21-2023 End: 07-21-2023 Levothyroxine Discontinued 50 MCG PO July 21, 2023 12:00am July 21, 2023 3:49pm on mondays Start: 02-20-2023 take 1 tablet by cullen th once daily levothyroxine 100 mcg (0.1 mg) Tab 100 mcg = 1 tab(s), Oral, Daily, Refills(s) 0 Start Date: 02/20/23 Status: Ordered Start: 10-19-2020 take 100 ug by mouth once daily Levothyroxine Active 100 MCG PO Daily September 25, 2022 12:00am Start: 11-21-2016 levothyroxine (SYNTHROID) 100 mcg tablet 1.5 tab on Mondays, one other 6 days. 90 tablet 3 11/21/2016 Active Levothyroxine So dium 100 MCG TAKE 1 TABLET BY MOUTH EVERY DAY EXCEPT MONDAYS. TAKE 1/2 TABLET BY MOUTH ON MONDAYS Oral for 90 Days Active Comment on above: 1.5 tab on Mondays, one other 6 days. Polyethylene Glycols (4 sources) polyethylene gly col 3350 (MIRALAX ORAL) Take by mouth. 0 Active Comment on above: Take by mouth. PreserVision AREDS CAPS (9 sources) PreserVision ARE DS CAPS TAKE DIRECTED. Quantity: 0 Refills: 0 Ordered: 08-Oct-2021 DO Active vit A/vit C/vit E/zinc/copper (VITAMINS A,C,Y-IBTQ-TEGQIH ORAL) (1 source) End: 07-05-2023 vit A/vit C/vit E/zinc/copper (VITAMINS A,C,B-MUZS-PPYJMX ORAL) Take by mouth. 0 07/05/2023 Discontinued (Therapy completed) vit C/E/Zn/coppr/lutein/zeaxa n (PRESERVISION AREDS-2 ORAL) (19 sources) vit C/E/Zn/coppr/lutein/zeax an (PRESERVISION AREDS-2 ORAL) Take by mouth. 0 Active Comment on above: Take by mouth. Problems Active Problems Problem Classification Problem Date Documented Date Episodic/Chronic Abdominal pain (4 sources) Unspecified abdominal pain; Translations: [UNSPECIFIED ABDOMINAL PAIN] Onset: 10-19-2022 Episodic Acute and unspecified renal failure (7 sources) Acute renal failure syndrome; Translations: [Acute kidney failure, unspecified] Onset: 07-21-2023 07-21-2023 Episodic Adjustment disorders (17 sources) Grief finding; Translations: [Adjustment disorder with depressed mood] Onset: 08-25-2022 08-25-2022 Chronic Biliary tract disease (2 sources) Cholecystitis, unspecified; Translations: [Acute cholecystitis] Onset: 09-19-2022 Episodic Calculus of urinary tract (1 source) Calculus of kidney; Translations: [CALCULUS OF KIDNEY] Onset: 09-19-2022 Episodic Cancer of colon (1 source) History of malignant neoplasm of colon 01-16-2020 Episodic Cancer of prostate (1 source) History of malignant neoplasm of prostate 01-16-2020 Episodic Cardiac dysrhythmias (20 sources) Paroxysmal atrial fibrillation; Translations: [Atrial fibrillation] Onset: 12-24-2021 09-25-2022 Chronic Cardiac dysrhythmias (1 source) Bradycardia, unspecified; Translations: [BRADYCARDIA UNSPECIFIED] Onset: 09-29-2022 Episodic Complications of surgical procedures or medical care (19 sources) Postoperative hypothyroidism; Translations: [Postprocedural hypothyroidism] Onset: 01-14-2010 01-14-2010 Chronic Conduction disorders (20 sources) Complete atrioventricular block; Translations: [Atrioventricular block, complete] Onset: 11-28-2022 Chronic Congestive heart failure; nonhypertensive (14 sources) Congestive heart failure; Translations: [Congestive heart failure, unspecified] Onset: 11-28-2022 Resolved: 07-05-2023 Chronic Coronary atherosclerosis and other heart disease (2 sources) 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; Translations: [Coronary atherosclerosis] Onset: 09-07-2022 11-15-2022 Chronic Deficiency and other anemia (1 source) Anemia, unspecified; Translations: [ANEMIA UNSPECIFIED] Onset: 09-29-2022 Episodic Delirium, dementia, and amnestic and other cognitive disorders (1 source) Cognitive disorder 10-11-2022 Chronic Disorders of lipid metabolism (20 sources) Mixed hyperlipidemia; Translations: [Mixed hyperlipidemia] Onset: 12-31-2015 12-31-2015 Chronic E Codes: Fall (8 sources) Fall on same level, unspecified, initial encounter; Translations: [Fall] Onset: 09-29-2022 07-21-2023 Episodic Fluid and electrolyte disorders (7 sources) Dehydration; Translations: [Dehydration] Onset: 07-21-2023 07-21-2023 Episodic Gout and other crystal arthropathies (1 source) Gout 10-11-2022 Chronic Hyperplasia of prostate (1 source) Benign prostatic hypertrophy with outflow obstruction 01-16-2020 Chronic Menopausal disorders (1 source) Hormone replacement therapy; Translations: [HORMONE REPLACEMENT THERAPY] Onset: 09-29-2022 Episodic Miscellaneous mental health disorders (1 source) Primary insomnia 02-20-2023 Chronic Nutritional deficiencies (20 sources) Vitamin D deficiency; Translations: [Vitamin D deficiency, unspecified] Onset: 11-07-2011 11-07-2011 Chronic Open wounds of head; neck; and trunk (1 source) Laceration without foreign body of other part of head, initial encounter; Translations: [LAC W/O FB OTH PART HEAD INIT ENC] Onset: 09-29-2022 Episodic Other aftercare (11 sources) Drug therapy finding; Translations: [Long-term (current) use of anticoagulants] Onset: 07-04-2023 07-04-2023 Episodic Other aftercare (1 source) retirement (current) use of aspirin; Translations: [SERGEANT MISSILE CREWMAN CURRENT USE OF ASPIRIN] Onset: 11-28-2022 Episodic Other aftercare (1 source) Other care home (current) drug therapy; Translations: [OTH CORRECTION CURRENT DRUG THERAPY] Onset: 11-28-2022 Episodic Other aftercare (3 sources) retirement (current) use of anticoagulants; Translations: [SERGEANT MISSILE CREWMAN CURRNT USE ANTICOAGULANTS] Onset: 09-29-2022 Episodic Other circulatory disease (1 source) Raynaud's disease 10-11-2022 Chronic Other circulatory disease (1 source) Orthostatic hypotension 10-11-2022 Episodic Other connective tissue disease (1 source) Muscle pain; Translations: [Myalgia, unspecified site] 10-25-2023 Episodic Other connective tissue disease (1 source) Pain in left lower limb; Translations: [Pain in left leg] 10-25-2023 Episodic Other injuries and conditions due to external causes (1 source) Unspecified injury of head, initial encounter; Translations: [UNSPECIFIED INJURY HEAD INITIAL ENC] Onset: 09-29-2022 Episodic Other injuries and conditions due to external causes (1 source) History of falling; Translations: [HISTORY OF FALLING] Onset: 09-29-2022 Episodic Other lower respiratory disease (1 source) Shortness of breath; Translations: [SHORTNESS OF BREATH] Onset: 11-28-2022 Episodic Other male genital disorders (4 sources) Left testicular pain; Translations: [LEFT TESTICULAR PAIN] Onset: 11-24-2022 Episodic Other male genital disorders (1 source) Hydrocele, unspecified; Translations: [HYDROCELE UNSPECIFIED] Onset: 11-28-2022 Episodic Other male genital disorders (1 source) Right testicular pain; Translations: [RIGHT TESTICULAR PAIN] Onset: 11-28-2022 Episodic Other non-epithelial cancer of skin (1 source) History of malignant neoplasm of skin 01-16-2020 Episodic Other nutritional; endocrine; and metabolic disorders (1 source) Overweight in adulthood with body mass index of 25 or more but less than 30; Translations: [Overweight] Episodic Other nutritional; endocrine; and metabolic disorders (1 source) Abnormal weight loss; Translations: [ABNORMAL WEIGHT LOSS] Onset: 09-19-2022 Episodic Other nutritional; endocrine; and metabolic disorders (1 source) Anorexia; Translations: [ANOREXIA] Onset: 09-19-2022 Episodic Other nutritional; endocrine; and metabolic disorders (1 source) Unintentional weight loss 10-11-2022 Episodic Other nutritional; endocrine; and metabolic disorders (2 sources) Body mass index (BMI) 26.0-26.9, adult; Translations: [Body mass index (BMI) 26.0-26.9, adult] Onset: 08-31-2023 Episodic Other screening for suspected conditions (not mental disorders or infectious disease) (15 sources) Echocardiogram abnormal; Translations: [Nonspecific (abnormal) findings on radiological and other examination of other intrathoracic organs] Onset: 07-04-2023 01-16-2020 Episodic Other upper respiratory infections (1 source) Chronic maxillary sinusitis 10-11-2022 Chronic Parkinson`s disease (20 sources) Symptomatic parkinsonism; Translations: [Paralysis agitans] Onset: 08-25-2022 Chronic Parkinson`s disease (1 source) Parkinson`s disease; Translations: [Parkinson's disease without dyskinesia, without mention of fluctuations] Onset: 07-21-2023 Peripheral and visceral atherosclerosis (1 source) Abdominal aortic atherosclerosis 05-30-2023 Chronic Comment on above: added per 05/29/2023 query response. Pulmonary heart disease (7 sources) Pulmonary hypertension; Translations: [Other chronic pulmonary heart diseases] Onset: 07-04-2023 07-05-2023 Chronic Residual codes; unclassified (1 source) Obstructive sleep apnea syndrome 10-11-2022 Chronic Residual codes; unclassified (10 sources) Body mass index 20-24 - normal; Translations: [Body Mass Index between 19-24, adult] Onset: 07-05-2023 07-05-2023 Episodic Residual codes; unclassified (1 source) Other specified personal risk factors, not elsewhere classified Episodic Residual codes; unclassified (1 source) Did not attend; Translations: [No-show for appointment] Episodic Residual codes; unclassified (1 source) Edema, unspecified; Translations: [EDEMA UNSPECIFIED] Onset: 12-01-2022 Episodic Screening and history of mental health and substance abuse codes (9 sources) Ex-smoker; Translations: [Personal history of tobacco use] Episodic Spondylosis; intervertebral disc disorders; other back problems (2 sources) Other intervertebral disc degeneration, lumbar region; Translations: [Spondylosis] Onset: 09-19-2022 10-11-2022 Chronic Superficial injury; contusion (1 source) Abrasion of right eyelid and periocular area, initial encounter; Translations: [ABRASION RT EYELID PERIOCULAR INIT] Onset: 09-29-2022 Episodic Syncope (14 sources) Syncope; Translations: [Syncope and collapse] Onset: 09-25-2022 09-25-2022 Episodic Thyroid disorders (20 sources) Non-toxic multinodular goiter; Translations: [Nontoxic multinodular goiter] Onset: 04-23-2009 01-14-2010 Chronic Unclassified (20 sources) Parkinson's disease; Translations: [Primary parkinsonism] Onset: 08-25-2022 05-05-2023 Chronic Unclassified (4 sources) Movement disorder; Translations: [Motor fluctuations related to medication use in Parkinson's disease] 06-20-2023 Chronic Unclassified (1 source) CONTACT W/AND (SUSP) EXPOS COVID-19; Translations: [CONTACT W/AND (SUSP) EXPOS COVID-19] Onset: 09-29-2022 Unclassified (1 source) Chronic atrial fibrillation, unspecified; Translations: [CHRONIC ATRIAL FIBRILLATION UNSPEC] Onset: 09-29-2022 Unclassified (4 sources) COUGH, UNSPECIFIED; Translations: [COUGH, UNSPECIFIED] Onset: 12-24-2021 Unclassified (2 sources) Primary parkinsonism; Translations: [Primary parkinsonism] Onset: 08-25-2022 Unclassified (2 sources) Other persistent atrial fibrillation; Translations: [Other persistent atrial fibrillation (CMS/HCC)] Onset: 07-04-2023 Unclassified (1 source) No-show for appointment; Translations: [No-show for appointment] Onset: 11-22-2022 Unclassified (1 source) Other persistent atrial fibrillation; Translations: [Other persistent atrial fibrillation] Onset: 08-31-2023 Unclassified (1 source) Encounter for checking and testing of cardiac pacemaker pulse generator [battery]; Translations: [Encounter for checking and testing of cardiac pacemaker pulse generator [battery]] Onset: 07-05-2023 Past or Other Problems Problem Classification Problem Date Documented Da te Episodic/Chronic E Codes: Adverse effects of medical drugs (1 source) Adverse effect of antiparkinsonism drugs and other central muscle-tone depressants, initial encounter; Translations: [Levodopa-induced dyskinesia] Onset: 3 Episodic Malaise and fatigue (20 sources) Fatigue; Translations: [Other fatigue] Onset: 9 04-23-2009 Episodic Nonspecific chest pain (4 sources) Chest pain, unspecified; Translations: [CHEST PAIN UNSPECIFIED] Onset: 2 Episodic Other gastrointestinal disorders (20 sources) Constipation; Translations: [Constipation, unspecified] Onset: 9 04-23-2009 Episodic Other hereditary and degenerative nervous system conditions (16 sources) Drug-induced dyskinesia; Translations: [Drug induced subacute dyskinesia] Onset: 3 08-25-2022 Episodic Other hereditary and degenerative nervous system conditions (1 source) Drug induced subacute dyskinesia; Translations: [Levodopa-induced dyskinesia] Onset: 3 Episodic Other lower respiratory disease (1 source) Wheezing; Translations: [WHEEZING] Onset: 2 Episodic Other upper respiratory infections (1 source) Acute pharyngitis, unspecified; Translations: [ACUTE PHARYNGITIS UNSPECIFIED] Onset: 2 Episodic Residual codes; unclassified (16 sources) Inadequate sleep hygiene; Translations: [Inadequate sleep hygiene] Onset: 3 08-25-2022 Episodic Residual codes; unclassified (16 sources) Disturbance in sleep behavior; Translations: [Sleep disorder, unspecified] Onset: 3 08-25-2022 Episodic Residual codes; unclassified (1 source) Inadequate sleep hygiene; Translations: [Inadequate sleep hygiene] Onset: 3 Episodic Residual codes; unclassified (1 source) Sleep disorder, unspecified; Translations: [Disturbance in sleep behavior] Onset: 3 Episodic Unclassified (1 source) COUGH, UNSPECIFIED; Translations: [COUGH, UNSPECIFIED] Onset: 2 Unclassified (2 sources) Onset: 3 07-05-2023 Results Test Name Value Interpretation Reference Range Facility Plan of Care - PT/OT/Speecho n 10-05-2023 Plan of Care - PT/OT/Speech [id number] [facility] ECG 12 lead ECGon 09-26-2023 ECG 12 lead ECG [facility] Main [place] [id number] Electrocardiograph Report Signed Patient: Magdaleno Valderrama MR#: [id number] 181 : 1940 Acct:[id number] Age/Sex: 83 / M ADM Date: 09/26/23 Loc: Room: Type: [facility] Attending Dr: Edel Cesar MD Ordering Provider: Edel Cesar MD Date of Service: 09/26/23 ECG/ECG 12 lead ECG: Pre-cardioversion rhythm assessment Copies to: Test Reason : Blood Pressure : / mmHG Vent. Rate : 070 BPM Atrial Rate : 069 BPM P-R Int : 000 ms QRS Dur : 166 ms QT Int : 446 ms P-R-T Axes : 000 -71 092 degrees QTc Int : 481 ms Electronic ventricular pacemaker Abnormal ECG When compared with ECG of 22-JUL-2023 08:55, No significant change was found Confirmed by LONNIE MEJIA [facility], [place] ([id number]) on 09/26/2023 3:36:06 PM Referred By: Edel Cesar Electronically Signed By:COURTNEY FLEMING MD FACC Transcribed By: MUS Signed By Courtney Fleming MD, FACC 09/26/23 [address] [facility] ECG post procedureon 024 ECG post procedure [facility] Main [address] [address] Electrocardiograph Report Signed Patient: Magdaleno Valderrama MR#: [id number] 181 : 1940 Acct:[id number] Age/Sex: 83 / M ADM Date: 09/26/23 Loc: Room: Type: [facility] Attending Dr: Edel Cesar MD Ordering Provider: Edel Cesar MD Date of Service: 09/26/23/ ECG/ECG post procedure: cv Copies to: Test Reason : Blood Pressure : 137/076 mmHG Vent. Rate : 108 BPM Atrial Rate : 000 BPM P-R Int : 000 ms QRS Dur : 146 ms QT Int : 142 ms P-R-T Axes : 000 -29 000 degrees QTc Int : 190 ms Electronic ventricular pacemaker Abnormal ECG When compared with ECG of 26-SEP-2023 08:00, (Unconfirmed) No significant change was found Confirmed by LONNIE MEJIA FACC, COURTNEY ([id number]) on 09/26/2023 3:37:04 PM Referred By: Edel Cesar Electronically Signed By:COURTNEY FLEMING MD FACC Transcribed By: MUS Signed By Courtney Fleming MD, FACC 09/26/[address] [facility] Electrolyteson 09-26-2023 Anion gap [Moles/Vol] 12.5 mmol/L Normal 6.0-15.0 [facility] Comment on above: Result Comment: PERF ORMED BY: [facility] [address] [place] [id number] PATHOLOGIST PERCUSSION TEACHER ANGELIC RANDOLPH M.D. Performed By: #### L YTES ####[facility] [address] [place] [address] [facility] Chloride [Moles/Vol] 103 mmol/L Normal 98-107 [facility] Comment on above: Performed By: #### L YTES ####[facility] [address] [place] [address] [facility] CO2 [Moles/Vol] 26.6 mmol/L Normal 21.0-31.0 [facility] Comment on above: Performed By: #### L YTES ####[facility] [address] [place] [address] [facility] Potassium [Moles/Vol] 4.1 mmol/L Normal 3.5-5.1 [facility] Comment on above: Performed By: #### L YTES ####[facility] [place] [address] [facility] Sodium [Moles/Vol] 138 mmol/L Normal 136-145 [facility] Comment on above: Performed By: #### L YTES ####[facility] [place] [address] [facility] Patient Letter FTon 2023 Patient [place] [facility] [place]Inserted Image. Anna ble to display) September 18, 2023 MAGDALENO VALDERRAMA [address] [address] : 1940 To Whom It May Concern: Patient , Magdaleno Valderrama is currently under my care and I feel patient is physically able to return to Parkinson's fitness class. If you have any questions, please don't hesitate to call the office. Christo [place] [address] [facility] Formson 09-11-2023 Forms [id number] [facility] CNPNon 09-08-2023 CNPN Telephone (NREUS2) -- LAVELLEMAGDALENO Yusuf ([id number]) 1940 M Date Time Provider Department 09/08/23 EFREN CARBAJAL NREUS2 During your visit today, we recorded the following information about you: Elma Turpin 09/08/2023 11:41 AM Signed Fax request to clarify C/L CR can be found in scanned docs. Maurice Canela RN 09/08/2023 3:25 PM Signed Form was printed with clarification completed per Dr. Carbajal, for Sinemet CR 50-200 mg and faxed back to [facility]. Allergies As of Date: 09/08/2023 Noted Allergy Reaction NEOSPORIN ([id number]* Date Reviewed: 10/20/2022 Reviewed by: Ulysses Richard LPN - Fully Assessed Reason for Visit: Clarify C/L CR [Other] Prescriptions as of 09/08/2023 - carbidopa-levodopa CR (SINEMET CR) 50-200 mg per tablet Take 1 tablet by mouth three times a day AND 2 tablets two times a day. [AM ANDBedtime]. - donepezil (ARICEPT) 10 mg tablet Take 1 tablet by mouth once daily. Take 1 tablet by mouth daily. - levodopa (INBRIJA) 42 mg Inhale 2 capsules by mouth as needed for medication wearing off episodes. Use no more than five times a day. - furosemide (LASIX) 40 mg tablet Take 1 tablet by mouth three times a day. - carbidopa-levodopa (SINEMET 25-100) 25-100 mg per tablet Take 1.5 tablets of immediate release levodopa/carbidopa 25/100 mg at 6 AM, 10 AM, 2 PM, and 6 PM - clonazePAM (KLONOPIN) 0.5 mg tablet Take by mouth. - ELIQUIS 5 mg tab(s) Take 5 mg by mouth twice daily. - vit C/E/Zn/coppr/lutein/zeaxan (PRESERVISION AREDS-2 ORAL) Take by mouth. - levothyroxine (SYNTHROID) 100 mcg tablet 1.5 tab on Mondays, one other 6 days. - allopurinol (ZYLOPRIM) 300 mg tablet Take 1 tablet by mouth once daily. - atorvastatin 20 mg tablet Take 20 mg by mouth once daily. - Cholecalciferol, Vitamin D3, 25 mcg (1,000 unit) cap Take 1,000 Units by mouth once daily. - cyanocobalamin(VITAMIN B-12 500 MCG TAB) Take one(1) tablet daily. 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 Basic Metabolic Panelon Anion gap [Moles/Vol] 8.5 mmol/L Normal 6.0-15.0 [facility] Comment on above: Performed By: #### T SH3, BMP #### [facility] [address] Calcium [Mass/Vol] 9.3 mg/dL Normal 8.6-10.3 [facility] Comment on above: Performed By: #### T SH3, BMP #### [facility] [address] [place] [id number] [place] Chloride [Moles/Vol] 104 mmol/L Normal 98-107 [facility] Comment on above: Performed By: #### T SH3, BMP #### [facility] [address] [place] [id number] [place] CO2 [Moles/Vol] 31.2 mmol/L High 21.0-31.0 [facility] Comment on above: Performed By: #### T SH3, BMP #### [facility] [address] Creatinine [Mass/Vol] 1.25 mg/dL Normal 0.70-1.30 [facility] Comment on above: Performed By: #### T SH3, BMP #### [place] [address] [place] GFR/1.73 sq M.predicted MDRD (S/P/Bld) [Vol rate/Area] 56.430 mL/min/{1.73_m2} Normal [facility] Comment on above: Performed By: #### T SH3, BMP #### [address] Glucose [Mass/Vol] 86 mg/dL Normal 70-100 [facility] Comment on above: Result Comment: [place] Glucose Reference Range is dependent on time and content of last meal. Glucose of more than 200 mg/dL in a nonstressed, ambulatory subject supports the diagnosis of Diabetes Mellitus. ADA recommended reference range Performed By: #### T SH3, BMP #### [address] Potassium [Moles/Vol] 4.7 mmol/L Normal 3.5-5.1 [facility] Comment on above: Performed By: #### T SH3, BMP #### [address] Sodium [Moles/Vol] 139 mmol/L Normal 136-145 [facility] Comment on above: Performed By: #### T SH3, BMP #### [place] [address] [place] Urea nitrogen [Mass/Vol] 35 mg/dL High 7-[address] [facility] Comment on above: Performed By: #### T SH3, BMP #### [place] [address] [place] Calcium [Mass/volume] in Ser um or PlasmaOrdered By: Edel Cesar on 08-31-2023 Calcium [Mass/Vol] 9.3 mg/dL 8.6-10.3 [facility] Carbon dioxide, total [Moles /volume] in Serum or PlasmaOrdered By: Edel Cesar on 08-31-2023 CO2 [Moles/Vol] 31.2 mmol/L 21.0-31.0 [facility] Chloride [Moles/volume] in S siddharth or PlasmaOrdered By: Edel Cesar on 08-31-2023 Chloride [Moles/Vol] 104 mmol/L 98-107 [facility] Creatinine [Mass/volume] in Serum or PlasmaOrdered By: Edel Cesar on 08-31-2023 Creatinine [Mass/Vol] 1.25 mg/dL 0.70-1.30 [facility] Glucose [Mass/volume] in Ser um or PlasmaOrdered By: Edel Cesar on 08-31-2023 Glucose [Mass/Vol] 86 mg/dL 70-100 [facility] Comment on above: ADA recommended refe rence rangeRandom Glucose Reference Range is dependent on time and content of last meal. Glucose of more than 200 mg/dL in a nonstressed, ambulatory subject supports the diagnosis of Diabetes Mellitus. No Panel InformationOrdered By: Edel Cesar on 08-31-2023 Estimated GFR (CKD-EPI) 56.430 mL/Min [facility] Creatinine Clearance (Chem N/A [facility] Plan of Care - PT/OT/Speecho n 08-31-2023 Plan of Care - PT/OT/Speech [id number] Normal [facility] Plan of Care - PT/OT/Speech [id number] Normal [facility] Potassium [Moles/volume] in Serum or PlasmaOrdered By: Edel Cesar on 08-31-2023 Potassium [Moles/Vol] 4.7 mmol/L 3.5-5.1 [facility] Serum or plasma anion gap de terminationOrdered By: Edel Cesar on 08-31-2023 Anion gap [Moles/Vol] 8.5 mmol/L 6.0-15.0 [facility] Sodium [Moles/volume] in Ser um or PlasmaOrdered By: Edel Cesar on 08-31-2023 Sodium [Moles/Vol] 139 mmol/L 136-145 [facility] Thyroid Stimulating Hormoneo n 08-31-2023 TSH Qn 3.87 m[IU]/L Normal 0.45-5.[address] [facility] Comment on above: Result Comment: PERF ORMED BY: [place] [address] PATHOLOGIST PERCUSSION TEACHER ANGELIC RANDOLPH M.D. Performed By: #### T SH3, BMP #### [address] Thyrotropin [Units/volume] i n Serum or PlasmaOrdered By: Edel Cesar on 08-31-2023 TSH Qn 3.87 m[IU]/L 0.45-5.[address] [facility] Urea nitrogen [Mass/volume] in Serum or PlasmaOrdered By: Edel Cesar on 08-31-2023 Urea nitrogen [Mass/Vol] 35 mg/dL 7-[address] [facility] Ambulatory Visit Summaryon 0 08-23-2023 Ambulatory Visit Summary MAGDALENO VALDERRAMA Yusuf :1940 Visit Date:08/23/2023 Ambulatory Visit Instructions Your Diagnosis Fall Parkinson's disease BMI 22.0-22.9, adult Your Care Team Attending Physician - JACKLYN KELLY CNP Primary Care Physician - Christo Saab MD This Is Your Medications List apixaban (Eliquis 5 mg oral tablet) atorvastatin (atorvastatin 20 mg Tab) carbidopa-levodopa (carbidopa-levodopa 25 mg-100 mg Tab) carbidopa-levodopa (carbidopa-levodopa 50 mg-200 mg ER Tab) cholecalciferol (Vitamin D3) clonazepam (ClonazePAM 0.5 mg Tab) cyanocobalamin (Vitamin B12) donepezil (donepezil 10 mg Tab) flecainide (flecainide 50 mg Tab) furosemide (furosemide 40 mg Tab) levothyroxine (levothyroxine 100 mcg (0.1 mg) Tab) melatonin (Melatonin 5 mg oral tablet) melatonin (melatonin 10 mg oral tablet) multivitamin with minerals (PreserVision AREDS) rasagiline (rasagiline 1 mg oral tablet) spironolactone (spironolactone 25 mg Tab) Procedures Performed Cardiac pacemaker (Week of 09/25/2022), Cystoscopy (05/24/2013), External beam radiotherapy (03/2011), Transrectal biopsy of prostate using ultrasound (US) guidance (12/31/2010), Biopsy of skin, Esophagoduodenostomy. Discharge Vitals Heart Rate (Peripheral) 68 Blood Pressure 124/70 Height 172.2 cm Height 68 in Weight 68.0 kg Weight 149.6 lb BMI 22.93 What to do next Scheduled Follow-Up Appointments Monday 10:00 AM EDT With: Reyna MEJIA, Christo Alas Where: [facility] Family Medicine [place] Normal [facility] Family Medicine Office/Clini c Noteon 08-23-2023 Family Medicine Office/Clinic Note Chief Complaint follow up fall 08/23/23 HPI Staff Patient of Dr. Saab presents for an acute visit. Son is present with patient today and was home with patient when he fell. Patient did not go to ED. complaints of fall at home on left side. Onset: 08/22/23 Characteristics: left elbow, head, back, right shoulder OTC tried: ibuprofen x once Medicare Wellness due: Fall Assessment 75 This nurse cleansed skin tear on left elbow, and 2 skin tears on posterior scalp with hydrogen peroxide using aseptic technique. Areas were patted dry with 4x4's. The left elbow area was bandaged using telfa, 4x4's placed on top for cushion, then wrapped with gauze and secured with tape. Skin tears on posterior scalp were covered with large adhesive bandages. Patient's son educated on skin tear care. Son voiced understanding. Son reported that aquaphor was available at home as patient is allergic to neosporin, this nurse informs son that is okay to use to help promote healing. Leodan Capone LPN History of Present Illness 83 [address] patient of Dr. Saab presents today with his son for evaluation after sustaining a fall at home on 08/22/2023. He reports pain in the right shoulder, left elbow, and back. He reports he hit his head on the oven door when he fell. He reports this is his first fall in over one month. He denies losing consciousness. He reports his head does not hurt and he did take ibuprofen x 1 for the pain. Patient reports he is currently receiving physical therapy at home for balance issues d/t his Parkinson's. He ambulates with a cane and his Fall Risk Score is 75. Review of Systems PHQ Score Initial Depression Screen Score: 0 SCORE Constitutional: no fever, no chills, no sweats, no weakness Skin: no Jaundice, no rash, no lesions, nopetechiae ENMT: no ear pain, no sore throat, no congestion, no hoarseness Respiratory: no shortness of breath, no cough, no orthopnea, no wheezing Cardiovascular: no chest pain, no palpitations, no edema Gastrointestinal: no nausea, no vomiting, no diarrhea, no GI bleeding Genitourinary: no dysuria, no hematuria, no discharge, no pain Musculoskeletal: no back pain, no trauma Neurologic: no headache, no dizziness, no numbness, no weakness Psychiatric: no sleeping problems, no irritability, no mood swings/depression. Heme/Lymph: no bleeding tendency, no bruising tendency, no petechiae, no swollen nodes Allergy/Immunologic: no seasonal allergies, no food allergies, no recurrent infections, no impaired immunity Additional ROS info: Except as noted in the above Review of Systems and in the History of Present Illness all other systems have been reviewed and are negative or noncontributory. Physical Exam Vitals & Measurements HR: 68(Peripheral) BP: 124/70 HT: 68 in HT: 172.2 cm WT: 68.0 kg WT: 149.6 lb BMI: 22.93 General: alert, no acute distress Skin: warm, dry, left elbow skin tear Head: mild trauma, normocephalic, two skin tears on his crown Neck: no carotid bruits Eye: normal conjunctiva, sclera clear Cardiovascular: regular rate and rhythm, normal peripheral perfusion Respiratory: Lungs CTA, respirations Back: No tenderness, Normal ROM, Normal alignment. Extremities: no deformity, no trauma, normal ROM to both shoulders Neurological: oriented x 4, LOC appropriate for age speech normal Psychiatric: cooperative, affect appropriate for age, normal judgement, normal psychiatric thoughts. Assessment/Plan 1. Fall (W19.XXXA: Unspecified fall, initial encounter) Encouraged to continue with physical therapy as ordered Continue utilization of straight cane for ambulation Discussed s/sx of declining mental function and when to go to the ED Instructed to stop ibuprofen and use acetaminophen for discomfort, ice/heat for discomfort Ordered: 1125F Pain severity quantified; pain present Body Mass Index (BMI) documented 3008F Depression Screening Negative 3352F Fall Risk Screen 2 or more w/injury 1100F Medication list documented in medical record 1159F 2. Skin tear of left elbow without complication (S51.012A: Laceration without foreign body of left elbow, initial encounter) Area cleanse with H2O2, telfa applied, and several 4 x 4 gauze, wrapped with maryanne and taped into place Encouraged to change the bandage every 2-3 days f/u as needed 3. Parkinson's disease (G20: Parkinson's disease) Continue carbidopa-levodopa 25 mg-100 mg QID & rasagiline 1 mg once daily - no refills today Encouraged to continue with physical therapy as ordered Continue utilization of straight cane for ambulation Ordered: 1125F Pain severity quantified; pain present Body Mass Index (BMI) documented 3008F Depression Screening Negative 3352F Fall Risk Screen 2 or more w/injury 1100F Medication list documented in medical record 1159F 4. BMI 22.0-22.9, adult (Z68.22: Body mass index [BMI] 22.0-22.9, adult) BMI 22.93- wnl Monitor weight at each visit Ordered: 1125F Pain severity quantified; pain pre (more content not included)... [facility] Comment on above: Result Comment: Elec tronically Signed By: JACKLYN KELLY CNP\.br\Date and Time Signed: 08/23/23 11:18 EST Physician Orderon 08-08-2023 Physician Order [id number] can this order be re-faxed as the whole order was not received, thank you # [phone] [facility] Comment on above: Result Comment: Elec tronically Signed By: Anuradha Perera\.br\Date and Time Signed: 08/08/23 09:02 EST Ambulatory Visit Summaryon 0 08-07-2023 Ambulatory Visit Summary MAGDALENO VALDERRAMA :1940 Visit Date:08/07/2023 Ambulatory Visit Instructions Your Diagnosis Parkinson's disease Hypothyroidism Mild pulmonary hypertension Abdominal aortic atherosclerosis 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 Persistent atrial fibrillation Primary insomnia BMI 22.0-22.9, adult Former smoker Your Care Team Attending Physician - Christo Saab MD Primary Care Physician - Christo Saab MD This Is Your Medications List clonazepam (ClonazePAM 0.5 mg Tab) Contact prescribing physician if questions or concerns apixaban (Eliquis 5 mg oral tablet) atorvastatin (atorvastatin 20 mg Tab) carbidopa-levodopa (carbidopa-levodopa 25 mg-100 mg Tab) carbidopa-levodopa (carbidopa-levodopa 50 mg-200 mg ER Tab) cholecalciferol (Vitamin D3) cyanocobalamin (Vitamin B12) donepezil (donepezil 10 mg Tab) flecainide (flecainide 50 mg Tab) furosemide (furosemide 40 mg Tab) levothyroxine (levothyroxine 100 mcg (0.1 mg) Tab) melatonin (Melatonin 5 mg oral tablet) melatonin (melatonin 10 mg oral tablet) multivitamin with minerals (PreserVision AREDS) rasagiline (rasagiline 1 mg oral tablet) spironolactone (spironolactone 25 mg Tab) Procedures Performed Cardiac pacemaker (Week of 09/25/2022), Cystoscopy (05/24/2013), External beam radiotherapy (03/2011), Transrectal biopsy of prostate using ultrasound (US) guidance (12/31/2010), Biopsy of skin, Esophagoduodenostomy. Discharge Vitals Temperature (Temporal Artery) 36.7 ?C Heart Rate (Peripheral) 66 Respiratory Rate 18 Blood Pressure 106/70 Height 172.2 cm Height 68 in Weight 67.1 kg Weight 147.62 lb BMI 22.63 What to do next Scheduled Follow-Up Appointments Monday 8:00 AM EDT With: Christo Saab MD Where: [facility] Family Medicine [facility] Family Medicine Office/Clini c Noteon 08-07-2023 Family Medicine Office/Clinic Note HPI Staff Magdaleno is an 83 year old male presenting for follow up thyroid & Parkinson's Patient is here for follow up on Thyroid Disease. Do you have any of the following symptoms? Change in energy level? yes has no energy Weight change? yes gained but appetite back Heat/cold intolerance? no Hair/skin/nail changes? no Change in bowels? no Last TSH: TSH: 0.39 mcIU/mL (05/30/23 15:08:00) flu: UTD questions/concerns: can't sleep can fall asleep but can't stay asleep maybe sleeps 2-3 hours and up a lot then Would like released from home health so he can go back to his parkinson classes History of Present Illness Magdaleno Valderrama, an 83-year-old male, is here for a follow-up consultation, accompanied by an adult male. His chest wound has shown satisfactory healing following an emergency room visit due to chest bleeding. The patient expresses a need for home healthcare services but is interested in knowing when he can resume his Parkinson's disease classes. He is currently on a regimen of clonazepam, taking 4 tablets nightly to manage his sleep. He reports inconsistent sleep patterns, with some nights finding it difficult to fall asleep, and on others, waking up within 15 to 30 minutes of falling asleep. He often lies awake for an hour, unable to return to sleep, and resorts to watching television before attempting to sleep again. He is uncertain about the total amount of sleep he is getting. This pattern has been ongoing for some time. He engages in a set of exercises twice daily. He abstains from coffee, consumes iced tea, and drinks water before bedtime. Review of Systems PHQ Score Initial Depression Screen Score: 2 SCORE Physical Exam Vitals & Measurements T: 36.7 ?C(Temporal Artery) HR: 66(Peripheral) RR: 18 BP: 106/70 SpO2: 100% HT: 68 in HT: 172.2 cm WT: 67.1 kg WT: 147.62 lb BMI: 22.63 General: alert, no acute distress ENMT: oral mucosa moist, no pharyngeal erythema or exudate Cardiovascular: irregularly irregular rhythm with a controlled rate, normal peripheral perfusion Respiratory: diminished breath sounds Extremities: no deformity, no trauma Neurological: oriented x 4, LOC appropriate for age, CN II-XII intact, motor strength equal & normal bilaterally, speech normal Skin: Scab noted over the left chest where the patient had some skin removed secondary to what I believe was a cutaneous horn. Assessment/Plan 1. Parkinson's disease (G20: Parkinson's disease) Patient is doing well. Patient does not want to give up home health quite yet, but once he is able, he believes he is strong enough. We will go ahead and send him back to his Parkinson's classes. Patient will let us know when that is. 2. Hypothyroidism (E03.9: Hypothyroidism, unspecified) Patient's TSH is well controlled. No concerns at this time. Continue medications before. 3. Mild pulmonary hypertension (I27.20: Pulmonary hypertension, unspecified) No issues at this time. Patient is denying any shortness of breath. 4. Abdominal aortic atherosclerosis (I70.0: Atherosclerosis of aorta) Patient is already on a statin and blood thinner. We will continue to monitor. 5. 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 Continue medications before. 6. Persistent atrial fibrillation (I48.19: Other persistent atrial fibrillation) Patient is on a blood thinner. That is why we needed to check the removal of his cutaneous horn. No concerns at this time. 7. Primary insomnia (F51.01: Primary insomnia) Patient is on clonazepam for this. This does not seem to be working. It has been a concern of mine that the patient has been on the clonazepam with his age with his parkinsonism, but this is what the patient has been on for years and has worked with this concern of him struggling with it not working. We will reevaluate his caffeine intake. Patient last got a prescription for his clonazepam on 08/01/2023. I will refill that today, but I will also add trazodone. Patient will hold off on taking the trazodone until he tries cutting out caffeine completely. If he is able to cut out caffeine completely and he has better sleep, then patient will not need to take the trazodone, but if the patient is having issues with the sleep, we will have him use trazodone. We will have the patient follow up in 3 months. 8. BMI 22.0-22.9, adult (Z68.22: Body mass index [BMI] 22.0-22.9, adult) BMI education given. 9. Former smoker (Z87.891: Personal history of nicotine dependence) Encouraged the patient to continue not to smoke. 10. Dementia associated with Parkinson's disease (G20.A1: Parkinson's disease without dyskinesia, without mention of fluctuations) Dementia in other diseases classified elsewhere, unspecified severity, without behavioral disturbance, psychotic disturbance, mood disturbance, and anxiety (F02.80: Dementia in other disease (more content not included)... [facility] Comment on above: Result Comment: Elec tronically Signed By: Christo Saab MD\.br\Date and Time Signed: 08/07/23 18:05 EST\.br\Electronically Co-Signed By: Roya Valles\.br\Date and Time Co-Signed: 08/07/23 12:52 EST Patient Educationon 08-07-19 Patient Education Nutrition BMI for Adults What is BMI? Body mass index (BMI) is a number that is calculated from a person's weight and height. BMI can help estimate how much of a person's weight is composed of fat. BMI does not measure body fat directly. Rather, it is an alternative to procedures that directly measure body fat, which can be difficult and expensive. BMI can help identify people who may be at higher risk for certain medical problems. What are BMI measurements used for? BMI is used as a screening tool to identify possible weight problems. It helps determine whether a person is obese, overweight, a healthy weight, or underweight. BMI is useful for: ? Identifying a weight problem that may be related to a medical condition or may increase the risk for medical problems. ? Promoting changes, such as changes in diet and exercise, to help reach a healthy weight. BMI screening can be repeated to see if these changes are working. How is BMI calculated? BMI involves measuring your weight in relation to your height. Both height and weight are measured, and the BMI is calculated from those numbers. This can be done either in [place] ([place] or metric measurements. Note that charts and online BMI calculators are available to help you find your BMI quickly and easily without having to do these calculations yourself. To calculate your BMI in [place] measurements: 1. Measure your weight in pounds (lb). 2. Multiply the number of pounds by 703. ? For example, for a person who weighs 180 lb, multiply that number by 703, which equals 126,540. 3. Measure your height in inches. Then multiply that number by itself to get a measurement called inches squared. ? For example, for a person who is 70 inches tall, the inches squared measurement is 70 inches x 70 inches, which equals 4,900 inches squared. 4. Divide the total from step 2 (number of lb x 703) by the total from step 3 (inches squared): 126,540 ? 4,900 = 25.8. This is your BMI. To calculate your BMI in metric measurements: 1. Measure your weight in kilograms (kg). 2. Measure your height in meters (m). Then multiply that number by itself to get a measurement called meters squared. ? For example, for a person who is 1.75 m tall, the meters squared measurement is 1.75 m x 1.75 m, which is equal to 3.1 meters squared. 3. Divide the number of kilograms (your weight) by the meters squared number. In this example: 70 ? 3.1 = 22.6. This is your BMI. What do the results mean? BMI charts are used to identify whether you are underweight, normal weight, overweight, or obese. The following guidelines will be used: ? Underweight: BMI less than 18.5. ? Normal weight: BMI between 18.5 and 24.9. ? Overweight: BMI between 25 and 29.9. ? Obese: BMI of 30 or above. Keep these notes in mind: ? Weight includes both fat and muscle, so someone with a muscular build, such as an athlete, may have a BMI that is higher than 24.9. In cases like these, BMI is not an accurate measure of body fat. ? To determine if excess body fat is the cause of a BMI of 25 or higher, further assessments may need to be done by a health care provider. ? BMI is usually interpreted in the same way for men and women. Where to find more information For more information about BMI, including tools to quickly calculate your BMI, go to these websites: ? Centers for Disease Control and Prevention: www.cdc.gov ? [place] [employer]: www.heart.org ? National Heart, Lung, and Blood [place]: www.nhlbi.nih.gov Summary ? Body mass index (BMI) is a number that is calculated from a person's weight and height. ? BMI may help estimate how much of a person's weight is composed of fat. BMI can help identify those who may be at higher risk for certain medical problems. ? BMI can be measured using Scottish measurements or metric measurements. ? BMI charts are used to identify whether you are underweight, normal weight, overweight, or obese. This information is not intended to replace advice given to you by your health care provider. Make sure you discuss any questions you have with your health care provider. Document Revised: 04/08/2020 Document Reviewed: 02/14/2020 [email or web address] Patient Education ? 2022 [employer] [facility] Pre-Visit Planningon 024 Pre-Visit Planning - From: Kacie Baez To: Reyna MEJIA, Christo Alas; Sent: 08/04/2023 16:04:25 EST Subject: Pre-Visit Planning Due Date/Time: 08/04/2023 16:04:00 EST Caller Name: MAGDALENO VALDERRAMA; Caller Number: Jahaira , M , B Va Dr. Saab. During a pre-visit planning chart review, I noted the following documentation in the medical record: Current Problem List: Parkinson's disease and Cognitive dysfunction. Current Medication List: carbidopa-levodopa, donepezil, and rasagiline. [facility] Facesheet: 11/15/2022 Office Visit Note: Assessment/Plan- 5. Parkinson's disease (G20: Parkinson's disease) The patient is seeing a specialist, Dr. Montilla out of [place]. The patient has carbidopa levodopa for this. No concerns at this time 6. Cognitive dysfunction (F09: Unspecified mental disorder due to known physiological condition) As per # 5, the patient is stable. Based on your medical judgment can you please clarify if any of the following conditions/complications are present? I can update the Chronic Problem List with your response if you would like. -Unspecified dementia, unspecified severity, without behavioral disturbance, psychotic disturbance, mood disturbance, and anxiety -Dementia associated with Parkinson's disease -Other (please specify): -Will determine during Office Visit In responding to this request, please exercise your independent professional judgment. The fact that a question is asked does not imply that any particular answer is desired or expected. If you have any questions, please feel free to contact me at extension [phone]. Thank you! Kacie Baez LPN From: Reyna MEJIA, Christo Alas To: Kacie Baez; Sent: 08/07/2023 11:49:22 EST Subject: RE: Pre-Visit Planning Caller Name: MAGDALENO VALDERRAMA; Caller Number: , M , B Dementia associated Parkinson's Normal [address] [facility] Basic Metabolic Panelon 12-2 Anion gap [Moles/Vol] 9.4 mmol/L Normal 6.0-15.0 [facility] Comment on above: Performed By: #### B MP #### [address] Calcium [Mass/Vol] 8.8 mg/dL Normal 8.6-10.3 [facility] Comment on above: Performed By: #### B MP #### [facility] [address] [place] [address] [place] Chloride [Moles/Vol] 103 mmol/L Normal 98-107 [facility] Comment on above: Performed By: #### B MP #### [facility] [address] [place] [id number] [place] CO2 [Moles/Vol] 27.8 mmol/L Normal 21.0-31.0 [facility] Comment on above: Performed By: #### B MP #### [facility] [address] [place] [address] [place] Creatinine [Mass/Vol] 1.04 mg/dL Normal 0.70-1.30 [facility] Comment on above: Performed By: #### B MP #### [facility] [address] [place] [address] [place] Creatinine Clr Calc Pharmacy 44.[address] [facility] Comment on above: Result Comment: PERF ORMED BY: [place] [address] PATHOLOGIST PERCUSSION TEACHER ANGELIC RANDOLPH M.D. Performed By: #### B MP #### [facility] [address] [place] [address] [place] GFR/1.73 sq M.predicted MDRD (S/P/Bld) [Vol rate/Area] mL/min/{1.73_m2} Normal [facility] Comment on above: Performed By: #### B MP #### [address] Glucose [Mass/Vol] 84 mg/dL Normal 70-100 [facility] Comment on above: Result Comment: [facility] Glucose Reference Range is dependent on time and content of last meal. Glucose of more than 200 mg/dL in a nonstressed, ambulatory subject supports the diagnosis of Diabetes Mellitus. ADA recommended reference range Performed By: #### B MP #### [address] Potassium [Moles/Vol] 4.2 mmol/L Normal 3.5-5.1 [facility] Comment on above: Performed By: #### B MP #### [place] [address] [place] Sodium [Moles/Vol] 136 mmol/L Normal 136-145 [facility] Comment on above: Performed By: #### B MP #### [place] [address] [place] Urea nitrogen [Mass/Vol] 30 mg/dL High 7-[address] [facility] Comment on above: Performed By: #### B MP #### [place] [address] [place] Calcium [Mass/volume] in Ser um or PlasmaOrdered By: Ashwini Clancy on 07-22-2023 Calcium [Mass/Vol] 8.8 mg/dL 8.6-10.3 [facility] Carbon dioxide, total [Moles /volume] in Serum or PlasmaOrdered By: Ashwini Clancy on 07-22-2023 CO2 [Moles/Vol] 27.8 mmol/L 21.0-31.0 [facility] Chloride [Moles/volume] in S siddharth or PlasmaOrdered By: Ashwini Clancy on 07-22-2023 Chloride [Moles/Vol] 103 mmol/L 98-107 [facility] Creatinine [Mass/volume] in Serum or PlasmaOrdered By: Ashwini Clancy on 07-22-2023 Creatinine [Mass/Vol] 1.04 mg/dL 0.70-1.30 [facility] ECG 12 lead ECGon 07-22-2023 ECG 12 lead ECG [facility] [address] Electrocardiograph Report Signed Patient: Magdaleno Valderrama MR#: [id number] : 1940 Acct:[id number] Age/Sex: 83 / M ADM Date: 07/21/23 Loc: Room: [address] [place] [address] Type: ADM IN Attending Dr: Ashwini Clancy MD Ordering Provider: Ashwini Clancy MD Date of Service: 07/22/23 ECG/ECG 12 lead ECG: qtc interval Copies to: Test Reason : Blood Pressure : / mmHG Vent. Rate : 070 BPM Atrial Rate : 300 BPM P-R Int : 000 ms QRS Dur : 160 ms QT Int : 444 ms P-R-T Axes : 000 -71 098 degrees QTc Int : 479 ms Ventricular-paced rhythm with frequent supraventricular complexes Abnormal ECG When compared with ECG of 21-JUL-2023 11:45, Electronic ventricular pacemaker has replaced Sinus rhythm Confirmed by RONNIE MIRELES MD, FACC ([id number]) on 07/22/2023 3:25:23 PM Referred By: Electronically Signed By:RONNIE MIRELES MD FAC Transcribed By: MUS Signed By Roel Mireles MD 07/22/[address] [facility] Glucose [Mass/volume] in Ser um or PlasmaOrdered By: Ashwini Clancy on 07-22-2023 Glucose [Mass/Vol] 84 mg/dL 70-100 [facility] Comment on above: ADA recommended refe rence rangeRandom Glucose Reference Range is dependent on time and content of last meal. Glucose of more than 200 mg/dL in a nonstressed, ambulatory subject supports the diagnosis of Diabetes Mellitus. No Panel InformationOrdered By: Ashwini Clancy on 07-22-2023 Estimated GFR (CKD-EPI) > 60.0 mL/Min [facility] Creatinine Clearance (Chem 44.[address] [facility] Potassium [Moles/volume] in Serum or PlasmaOrdered By: Ashwini Clancy on 07-22-2023 Potassium [Moles/Vol] 4.2 mmol/L 3.5-5.1 [facility] Serum or plasma anion gap de terminationOrdered By: Ashwini Clancy on 07-22-2023 Anion gap [Moles/Vol] 9.4 mmol/L 6.0-15.0 [facility] Sodium [Moles/volume] in Ser um or PlasmaOrdered By: Ashwini Clancy on 07-22-2023 Sodium [Moles/Vol] 136 mmol/L 136-145 [facility] Urea nitrogen [Mass/volume] in Serum or PlasmaOrdered By: Ashwini Clancy on 07-22-2023 Urea nitrogen [Mass/Vol] 30 mg/dL 7-[address] [facility] Activated partial thrombopla stin time (aPTT) in platelet poor plasma by coagulation aOrdered By: David Reis on 07-21-2023 aPTT Coag (PPP) [Time] 42.0 s 25.1-36.5 [facility] Comment on above: A hematocrit value g reater than 55% may lead to inaccurate results in coagulation testing. Patients having hematocrit values >55% require a special collection tube for coagulation studies. Please contact the laboratory at [phone] for redraw instructions. Alanine aminotransferase [En zymatic activity/volume] in Serum or PlasmaOrdered By: David Reis on 07-21-2023 ALT [Catalytic activity/Vol] 5 U/L 7-[address] [facility] Albumin [Mass/volume] in Ser um or Plasma by Bromocresol green (BCG) dye binding methoOrdered By: David Reis on 07-21-2023 Albumin BCG dye [Mass/Vol] 4.3 g/dL 3.5-5.[address] [facility] Alkaline phosphatase [Enzyma tic activity/volume] in Serum or PlasmaOrdered By: David Reis on 07-21-2023 ALP [Catalytic activity/Vol] 74 U/L 34-[address] [facility] Aspartate aminotransferase [ Enzymatic activity/volume] in Serum or PlasmaOrdered By: David Reis on 07-21-2023 AST [Catalytic activity/Vol] 18 U/L 13-[address] [facility] Automated erythrocytes count in urine sediment (number/area)Ordered By: David Reis on 07-21-2023 RBC Auto (Urine sed) [#/Area] 50-100 [HPF] 0-[address] [facility] Automated leukocytes count i n urine sediment (number/area)Ordered By: David Reis on 07-21-2023 WBC Auto (Urine sed) [#/Area] 0-1 [HPF] 0-[address] [facility] B-Type Natriuretic Peptideon 07-21-2023 Natriuretic peptide B (Bld) [Mass/Vol] 248.0 pg/mL High 5-[address] [facility] Comment on above: Result Comment: PERF ORMED BY: [facility] [address] [place] [address] PATHOLOGIST PERCUSSION TEACHER ANGELIC RANDOLPH M.D. Performed By: #### M G, LACTIC, PT, HS TROP, CMP, CK, BNP, PTT, CBC ####[facility] [id number] [place] [address] [facility] Basophils Auto (Bld) [#/Vol] Ordered By: David Reis on 07-21-2023 Basophils (Bld) [#/Vol] 0.0 10*3/uL 0.0-0.[address] [facility] Basophils/100 WBC Auto (Bld) Ordered By: David Reis on 07-21-2023 Basophils/100 WBC (Bld) 0.5 % . [facility] Bilirubin Test strip Ql (U)O rdered By: David Reis on 07-21-2023 Bilirubin Ql (U) Negative Negative [facility] Bilirubin.total [Mass/volume ] in Serum or PlasmaOrdered By: David Reis on 07-21-2023 Bilirubin [Mass/Vol] 0.8 mg/dL 0.3-1.0 [facility] Calcium [Mass/volume] in Ser um or PlasmaOrdered By: David Reis on 07-21-2023 Calcium [Mass/Vol] 10.1 mg/dL 8.6-10.3 [facility] Carbon dioxide, total [Moles /volume] in Serum or PlasmaOrdered By: David Reis on 07-21-2023 CO2 [Moles/Vol] 31.7 mmol/L 21.0-31.0 [facility] Chloride [Moles/volume] in S siddharth or PlasmaOrdered By: David Reis on 07-21-2023 Chloride [Moles/Vol] 99 mmol/L 98-107 [facility] Color Auto (U)Ordered By: Zay Reis on 07-21-2023 Color (U) Yellow Yellow [facility] Complete Blood Count Auto Di ffon 07-21-2023 Basophils (Bld) [#/Vol] 0.0 10*3/uL Normal 0.0-0.[address] [facility] Comment on above: Result Comment: PERF ORMED BY: [facility] [address] [place] [address] PATHOLOGIST PERCUSSION TEACHER ANGELIC RANDOLPH M.D. Performed By: #### M G, LACTIC, PT, HS TROP, CMP, CK, BNP, PTT, CBC ####[facility] [place] [address] [facility] Basophils/100 WBC (Bld) 0.5 % Normal . [facility] Comment on above: Performed By: #### M G, LACTIC, PT, HS TROP, CMP, CK, BNP, PTT, CBC ####[facility] [id number] [place] [id number] [facility] Eosinophils (Bld) [#/Vol] 0.0 10*3/uL Normal 0.0-0.[address] [facility] Comment on above: Performed By: #### M G, LACTIC, PT, HS TROP, CMP, CK, BNP, PTT, CBC ####[address] Eosinophils/100 WBC (Bld) 0.6 % Normal . [facility] Comment on above: Performed By: #### M G, LACTIC, PT, HS TROP, CMP, CK, BNP, PTT, CBC ####[address] Erythrocyte distribution width (RBC) [Ratio] 14.9 % High 12.0-14.[address] [facility] Comment on above: Performed By: #### M G, LACTIC, PT, HS TROP, CMP, CK, BNP, PTT, CBC ####[address] Hematocrit (Bld) [Volume fraction] 40.9 % Normal 38.8-50.[address] [facility] Comment on above: Performed By: #### M G, LACTIC, PT, HS TROP, CMP, CK, BNP, PTT, CBC ####[address] Hemoglobin (Bld) [Mass/Vol] 13.6 g/dL Normal 13.0-17.[address] [facility] Comment on above: Performed By: #### M G, LACTIC, PT, HS TROP, CMP, CK, BNP, PTT, CBC ####[address] Lymphocytes (Bld) [#/Vol] 1.1 10*3/uL Normal 1.00-4.[address] [facility] Comment on above: Performed By: #### M G, LACTIC, PT, HS TROP, CMP, CK, BNP, PTT, CBC ####[address] Lymphocytes/100 WBC (Bld) 14.3 % Normal . [facility] Comment on above: Performed By: #### M G, LACTIC, PT, HS TROP, CMP, CK, BNP, PTT, CBC ####[address] MCH (RBC) [Entitic mass] 30.4 pg Normal 27.5-35.[address] [facility] Comment on above: Performed By: #### M G, LACTIC, PT, HS TROP, CMP, CK, BNP, PTT, CBC ####[address] MCV (RBC) [Entitic vol] 91.8 fL Normal 83.5-[address] [facility] Comment on above: Performed By: #### M G, LACTIC, PT, HS TROP, CMP, CK, BNP, PTT, CBC ####[address] Mean Corpuscular HGB Conc 33.2 g/dL Normal 32.5-35.[address] [facility] Comment on above: Performed By: #### M G, LACTIC, PT, HS TROP, CMP, CK, BNP, PTT, CBC ####[address] Monocytes (Bld) [#/Vol] 0.7 10*3/uL Normal 0.0-0.[address] [facility] Comment on above: Performed By: #### M G, LACTIC, PT, HS TROP, CMP, CK, BNP, PTT, CBC ####[address] Monocytes/100 WBC (Bld) 15.92 % Normal 0.00-20.[address] [facility] Comment on above: Performed By: #### M G, LACTIC, PT, HS TROP, CMP, CK, BNP, PTT, CBC ####[address] Monocytes/100 WBC (Bld) 9.5 % Normal . [facility] Comment on above: Performed By: #### M G, LACTIC, PT, HS TROP, CMP, CK, BNP, PTT, CBC ####[address] Neutrophils (Bld) [#/Vol] 5.8 10*3/uL Normal 1.8-7.[address] [facility] Comment on above: Performed By: #### M G, LACTIC, PT, HS TROP, CMP, CK, BNP, PTT, CBC ####[address] Neutrophils/100 WBC (Bld) 75.1 % Normal . [facility] Comment on above: Performed By: #### M G, LACTIC, PT, HS TROP, CMP, CK, BNP, PTT, CBC ####[address] NRBC% 0.1 /100{WBC} Normal 0-0.[address] [facility] Comment on above: Performed By: #### M G, LACTIC, PT, HS TROP, CMP, CK, BNP, PTT, CBC ####[address] Platelet mean volume (Bld) [Entitic vol] 8.2 fL Normal 6.6-10.[address] [facility] Comment on above: Performed By: #### M G, LACTIC, PT, HS TROP, CMP, CK, BNP, PTT, CBC ####[address] Platelets (Bld) [#/Vol] 192 10*3/uL Normal 150-[address] [facility] Comment on above: Performed By: #### M G, LACTIC, PT, HS TROP, CMP, CK, BNP, PTT, CBC ####[address] RBC (Bld) [#/Vol] 4.46 10*6/uL Normal 3.90-5.60 [facility] Comment on above: Performed By: #### M G, LACTIC, PT, HS TROP, CMP, CK, BNP, PTT, CBC ####[address] WBC (Bld) [#/Vol] 7.7 10*3/uL Normal 4.1-10.5 [facility] Comment on above: Performed By: #### M G, LACTIC, PT, HS TROP, CMP, CK, BNP, PTT, CBC ####[address] Comprehensive Metabolic Pane eric 07-21-2023 Albumin [Mass/Vol] 4.3 g/dL Normal 3.5-5.7 [facility] Comment on above: Performed By: #### M G, LACTIC, PT, HS TROP, CMP, CK, BNP, PTT, CBC ####[address] Albumin/Globulin [Mass ratio] 1.7 {ratio} Normal [facility] Comment on above: Performed By: #### M G, LACTIC, PT, HS TROP, CMP, CK, BNP, PTT, CBC ####[place] [id number] [facility] ALP [Catalytic activity/Vol] 74 U/L Normal 34-[address] [facility] Comment on above: Performed By: #### M G, LACTIC, PT, HS TROP, CMP, CK, BNP, PTT, CBC ####[place] [id number] [facility] ALT [Catalytic activity/Vol] 5 U/L Low 7-[address] [facility] Comment on above: Performed By: #### M G, LACTIC, PT, HS TROP, CMP, CK, BNP, PTT, CBC ####[place] [id number] [facility] Anion gap [Moles/Vol] 8.6 mmol/L Normal 6.0-15.0 [facility] Comment on above: Performed By: #### M G, LACTIC, PT, HS TROP, CMP, CK, BNP, PTT, CBC ####[place] [id number] [facility] AST [Catalytic activity/Vol] 18 U/L Normal 13-[address] [facility] Comment on above: Performed By: #### M G, LACTIC, PT, HS TROP, CMP, CK, BNP, PTT, CBC ####[place] [id number] [facility] Bilirubin [Mass/Vol] 0.8 mg/dL Normal 0.3-1.0 [facility] Comment on above: Performed By: #### M G, LACTIC, PT, HS TROP, CMP, CK, BNP, PTT, CBC ####[address] Calcium [Mass/Vol] 10.1 mg/dL Normal 8.6-10.3 [facility] Comment on above: Performed By: #### M G, LACTIC, PT, HS TROP, CMP, CK, BNP, PTT, CBC ####[address] Chloride [Moles/Vol] 99 mmol/L Normal 98-107 [facility] Comment on above: Performed By: #### M G, LACTIC, PT, HS TROP, CMP, CK, BNP, PTT, CBC ####[address] CO2 [Moles/Vol] 31.7 mmol/L High 21.0-31.0 [facility] Comment on above: Performed By: #### M G, LACTIC, PT, HS TROP, CMP, CK, BNP, PTT, CBC ####[place] [id number] [facility] Creatinine [Mass/Vol] 1.42 mg/dL High 0.70-1.30 [facility] Comment on above: Performed By: #### M G, LACTIC, PT, HS TROP, CMP, CK, BNP, PTT, CBC ####[place] [id number] [facility] Creatinine Clr Calc Pharmacy 31.23 [facility] Comment on above: Performed By: #### M G, LACTIC, PT, HS TROP, CMP, CK, BNP, PTT, CBC ####[place] [id number] [facility] GFR/1.73 sq M.predicted MDRD (S/P/Bld) [Vol rate/Area] 48.423 mL/min/{1.73_m2} [facility] Comment on above: Performed By: #### M G, LACTIC, PT, HS TROP, CMP, CK, BNP, PTT, CBC ####[address] Globulin (S) [Mass/Vol] 2.6 g/dL [facility] Comment on above: Performed By: #### M G, LACTIC, PT, HS TROP, CMP, CK, BNP, PTT, CBC ####[address] Glucose [Mass/Vol] 97 mg/dL Normal 70-100 [facility] Comment on above: Result Comment: [facility] Glucose Reference Range is dependent on time and content of last meal. Glucose of more than 200 mg/dL in a nonstressed, ambulatory subject supports the diagnosis of Diabetes Mellitus. ADA recommended reference range Performed By: #### M G, LACTIC, PT, HS TROP, CMP, CK, BNP, PTT, CBC ####[address] Potassium [Moles/Vol] 4.3 mmol/L Normal 3.5-5.1 [facility] Comment on above: Performed By: #### M G, LACTIC, PT, HS TROP, CMP, CK, BNP, PTT, CBC ####[place] [id number] [facility] Protein [Mass/Vol] 6.9 g/dL Normal 6.4-8.9 [facility] Comment on above: Performed By: #### M G, LACTIC, PT, HS TROP, CMP, CK, BNP, PTT, CBC ####[place] [id number] [facility] Sodium [Moles/Vol] 135 mmol/L Low 136-145 [facility] Comment on above: Performed By: #### M G, LACTIC, PT, HS TROP, CMP, CK, BNP, PTT, CBC ####[place] [id number] [facility] Urea nitrogen [Mass/Vol] 38 mg/dL High 7-[address] [facility] Comment on above: Performed By: #### M G, LACTIC, PT, HS TROP, CMP, CK, BNP, PTT, CBC ####[facility] [id number] [place] [address] [place] Creatine Kinaseon 07-21-2023 CK [Catalytic activity/Vol] 27 U/L Low [facility] Comment on above: Performed By: #### M G, LACTIC, PT, HS TROP, CMP, CK, BNP, PTT, CBC ####[facility] [id number] Creatine kinase [Enzymatic a ctivity/volume] in Serum or PlasmaOrdered By: David Reis on 07-21-2023 CK [Catalytic activity/Vol] 27 U/L [facility] Creatinine [Mass/volume] in Serum or PlasmaOrdered By: David Reis on 07-21-2023 Creatinine [Mass/Vol] 1.42 mg/dL 0.70-1.30 [facility] Dipstick and Microscopicon 1 09-21-2022 Appearance (U) Clear Normal Clear [facility] Comment on above: Order Comment: Name Collection Type:: Clean-Voided Midstream Performed By: #### A DDONUAPLUS #### [facility] [address] [place] [address] [place] Bacteria,Urine None Seen Normal None Seen [facility] Comment on above: Order Comment: Name Collection Type:: Clean-Voided Midstream Performed By: #### A DDONUAPLUS #### [facility] [address] [place] [address] [place] Bilirubin,Urine Negative Normal Negative [facility] Comment on above: Order Comment: Name Collection Type:: Clean-Voided Midstream Performed By: #### A DDONUAPLUS #### [facility] [address] [place] [address] [place] Color (U) Yellow Normal Yellow [facility] Comment on above: Order Comment: Name Collection Type:: Clean-Voided Midstream Performed By: #### A DDONUAPLUS #### [facility] [address] [place] [address] [place] Glucose Ql (U) Normal Normal Normal [facility] Comment on above: Order Comment: Name Collection Type:: Clean-Voided Midstream Performed By: #### A DDONUAPLUS #### [place] [address] [place] Hyaline Casts,Urine 0-8 Normal 0-8 [facility] Comment on above: Order Comment: Name Collection Type:: Clean-Voided Midstream Result Comment: PERF ORMED BY: [place] [address] PATHOLOGIST PERCUSSION TEACHER ANGELIC RANDOLPH M.D. Performed By: #### A DDONUAPLUS #### [facility] [address] [place] [address] Ketones Ql (U) Negative Normal Negative [facility] Comment on above: Order Comment: Name Collection Type:: Clean-Voided Midstream Performed By: #### A DDONUAPLUS #### [address] Leukocyte esterase Test strip Ql (U) Negative Normal Negative [facility] Comment on above: Order Comment: Name Collection Type:: Clean-Voided Midstream Performed By: #### A DDONUAPLUS #### [place] [address] [place] Nitrite,Urine Negative Normal Negative [facility] Comment on above: Order Comment: Name Collection Type:: Clean-Voided Midstream Performed By: #### A DDONUAPLUS #### [facility] [address] [place] [address] [place] Occult Blood,Urine 2+ High Negative [facility] Comment on above: Order Comment: Name Collection Type:: Clean-Voided Midstream Result Comment: PERF ORMED BY: [place] [address] PATHOLOGIST PERCUSSION TEACHER ANGELIC RANDOLPH M.D. Performed By: #### A DDONUAPLUS #### [facility] [address] [place] [address] pH (U) 5.5 [pH] Normal 5.0-9.[address] [facility] Comment on above: Order Comment: Name Collection Type:: Clean-Voided Midstream Performed By: #### A DDONUAPLUS #### [place] [address] [place] Protein,Urine Negative Normal Negative [facility] Comment on above: Order Comment: Name Collection Type:: Clean-Voided Midstream Performed By: #### A DDONUAPLUS #### [address] RBC,Urine 50-100 High 0-[address] [facility] Comment on above: Order Comment: Name Collection Type:: Clean-Voided Midstream Performed By: #### A DDONUAPLUS #### [address] Specificy [place],Urine 1.011 Normal 1.001-1.[address] [facility] Comment on above: Order Comment: Name Collection Type:: Clean-Voided Midstream Performed By: #### A DDONUAPLUS #### [address] Squamous Epithelial Cell,Urine None Seen Normal 0-[address] [facility] Comment on above: Order Comment: Name Collection Type:: Clean-Voided Midstream Performed By: #### A DDONUAPLUS #### [address] Urobilinogen,Urine Normal Normal Normal [facility] Comment on above: Order Comment: Name Collection Type:: Clean-Voided Midstream Performed By: #### A DDONUAPLUS #### [address] WBC LM.HPF (Urine sed) [#/Area] 0 /[HPF] Normal 0-[address] [facility] Comment on above: Order Comment: Name Collection Type:: Clean-Voided Midstream Performed By: #### A DDONUAPLUS #### [address] ECG 12 lead ECGon 07-21-2023 ECG 12 lead ECG [facility] [place] [address] [place] [address] Electrocardiograph Report Signed Patient: Magdaleno Valderrama MR#: [id number] : 1940 Acct:[id number] Age/Sex: 83 / M ADM Date: 07/21/23 Loc: Room: [address] [place] [address] Type: ADM IN Attending Dr: Ashwini Clancy MD Ordering Provider: David Reis PA-C Date of Service: 07/21/23 ECG/ECG 12 lead ECG: Weakness Copies to: Test Reason : Blood Pressure : 117/061 mmHG Vent. Rate : 082 BPM Atrial Rate : 082 BPM P-R Int : 348 ms QRS Dur : 148 ms QT Int : 442 ms P-R-T Axes : 067 -77 084 degrees QTc Int : 516 ms Sinus rhythm with 1st degree AV block with premature supraventricular complexes and with occasional and consecutive premature ventricular complexes Left axis deviation Left ventricular hypertrophy with QRS widening and repolarization abnormality Possible Lateral infarct , age undetermined Abnormal ECG When compared with ECG of 13-DEC-2022 11:19, Sinus rhythm has replaced Electronic ventricular pacemaker Confirmed by TERRI AYERS MD ([id number]) on 07/21/2023 3:09:49 PM Referred By: Electronically Signed By:TERRI AYERS MD Transcribed By: MUS Signed By Terri Ayers MD 07/21/[address] [facility] Eosinophils Auto (Bld) [#/Vo l]Ordered By: David Reis on 07-21-2023 Eosinophils (Bld) [#/Vol] 0.0 10*3/uL 0.0-0.[address] [facility] Eosinophils/100 WBC Auto (Bl d)Ordered By: David Reis on 07-21-2023 Eosinophils/100 WBC (Bld) 0.6 % . [facility] Erythrocyte distribution wid th Auto (RBC) [Ratio]Ordered By: David Reis on 07-21-2023 Erythrocyte distribution width (RBC) [Ratio] 14.9 % 12.0-14.[address] [facility] Globulin Calc (S) [Mass/Vol] Ordered By: David Reis on 07-21-2023 Globulin (S) [Mass/Vol] 2.6 g/dL [facility] Glucose [Mass/volume] in Ser um or PlasmaOrdered By: David Reis on 07-21-2023 Glucose [Mass/Vol] 97 mg/dL 70-100 [facility] Comment on above: ADA recommended refe rence rangeRandom Glucose Reference Range is dependent on time and content of last meal. Glucose of more than 200 mg/dL in a nonstressed, ambulatory subject supports the diagnosis of Diabetes Mellitus. Hematocrit Auto (Bld) [Volum e fraction]Ordered By: David Reis on 07-21-2023 Hematocrit (Bld) [Volume fraction] 40.9 % 38.8-50.[address] [facility] Hemoglobin [Mass/volume] in BloodOrdered By: David Reis on 07-21-2023 Hemoglobin (Bld) [Mass/Vol] 13.6 g/dL 13.0-17.[address] [facility] INR in Platelet poor plasma by Coagulation assayOrdered By: David Reis on 07-21-2023 INR Coag (PPP) [Relative time] 2.2 {INR} [facility] Comment on above: INR Therapeutic Rang e A) Pre- and Peroperative OAT started two weeks before surgery. NOT HIP SURGERY: 1.5 - 2.5 HIP SURGERY: 2 - 3B) Primary and secondary prevention of venous THROMBOSIS: 2 - 3C) Active venous thrombosis, pulmonary embolismand prevention of recurrent venous thrombosis: 2 - 3D) Prevention of arterial thromboembolismincluding patients with mechanical heart valves: 3 - 4.5 Ketones Auto test strip (U) [Mass/Vol]Ordered By: David Reis on 07-21-2023 Ketones (U) [Mass/Vol] Negative Negative [facility] - UrinalysisOrder ed By: David Reis on 07-21-2023 Hyaline casts LM Ql (Urine sed) 0-8 [LPF] 0-[address] [facility] Lactate [Moles/volume] in Se rum or PlasmaOrdered By: David Reis on 07-21-2023 Lactate [Moles/Vol] 1.0 mmol/L 0.5-2.2 [facility] Lactic Acidon 07-21-2023 Lactate [Moles/Vol] 1.0 mmol/L Normal 0.5-2.2 [facility] Comment on above: Result Comment: PERF ORMED BY: [facility] [address] [place] [address] PATHOLOGIST PERCUSSION TEACHER ANGELIC RANDOLPH M.D. Performed By: #### M G, LACTIC, PT, HS TROP, CMP, CK, BNP, PTT, CBC ####[facility] [id number] [place] [address] [facility] Leukocytes [#/volume] correc parag for nucleated erythrocytes in Blood by Automated counOrdered By: David Reis on 07-21-2023 WBC corrected for nucl RBC Auto (Bld) [#/Vol] 7.7 10*3/uL 4.1-10.[address] [facility] Lymphocytes Auto (Bld) [#/Vo l]Ordered By: David Reis on 07-21-2023 Lymphocytes (Bld) [#/Vol] 1.1 10*3/uL 1.00-4.[address] [facility] Lymphocytes/100 WBC Auto (Bl d)Ordered By: David Reis on 07-21-2023 Lymphocytes/100 WBC (Bld) 14.3 % . [facility] MCH Auto (RBC) [Entitic mass ]Ordered By: David Reis on 07-21-2023 MCH (RBC) [Entitic mass] 30.4 pg 27.5-35.[address] [facility] MCHC Auto (RBC) [Mass/Vol]Or dered By: David Reis on 07-21-2023 MCHC (RBC) [Mass/Vol] 33.2 g/dL 32.5-35.6 [facility] MCV Auto (RBC) [Entitic vol] Ordered By: David Reis on 07-21-2023 MCV (RBC) [Entitic vol] 91.8 fL 83.5-[address] [facility] Magnesiumon 07-21-2023 Magnesium [Mass/Vol] 2.5 mg/dL Normal 1.9-2.7 [facility] Comment on above: Result Comment: PERF ORMED BY: [facility] [address] [place] [address] PATHOLOGIST PERCUSSION TEACHER ANGELIC RANDOLPH M.D. Performed By: #### M G, LACTIC, PT, HS TROP, CMP, CK, BNP, PTT, CBC ####[facility] [id number] [place] [address] [facility] Magnesium [Mass/volume] in S siddharth or PlasmaOrdered By: David Reis on 07-21-2023 Magnesium [Mass/Vol] 2.5 mg/dL 1.9-2.7 [facility] Monocyte distribution width [Entitic volume] in Blood by AutomatedOrdered By: David Reis on 07-21-2023 Monocyte distribution width Auto (Bld) [Entitic vol] 15.92 % 0.00-20.[address] [facility] Monocytes Auto (Bld) [#/Vol] Ordered By: David Reis on 07-21-2023 Monocytes (Bld) [#/Vol] 0.7 10*3/uL 0.0-0.[address] [facility] Monocytes/100 WBC Auto (Bld) Ordered By: David Reis on 07-21-2023 Monocytes/100 WBC (Bld) 9.5 % . [facility] Natriuretic peptide B [Mass/ Vol]Ordered By: David Reis on 07-21-2023 Natriuretic peptide B (Bld) [Mass/Vol] 248.0 pg/mL 5-[address] [facility] Neutrophils Auto (Bld) [#/Vo l]Ordered By: David Reis on 07-21-2023 Neutrophils (Bld) [#/Vol] 5.8 10*3/uL 1.8-7.[address] [facility] Neutrophils/100 WBC Auto (Bl d)Ordered By: David Reis on 07-21-2023 Neutrophils/100 WBC (Bld) 75.1 % . [facility] Nitrite Test strip Ql (U)Ord ered By: David Reis on 07-21-2023 Nitrite Ql (U) Negative Negative [facility] No Panel InformationOrdered By: David Reis on 07-21-2023 Estimated GFR (CKD-EPI) 48.423 mL/Min [facility] Creatinine Clearance (Chem 31.[address] [facility] Nucleated erythrocytes [Pres ence] in Blood by Automated countOrdered By: David Reis on 07-21-2023 Nucleated RBC Auto Ql (Bld) 0.1 /100{WBC} 0-0.[address] [facility] Partial Thromboplastin Timeo n 07-21-2023 aPTT Coag (Bld) [Time] 42.0 s High 25.1-36.5 [facility] Comment on above: Result Comment: A he matocrit value greater than 55% may lead to inaccurate results in coagulation testing. Patients having hematocrit values >55% require a special collection tube for coagulation studies. Please contact the laboratory at [phone] for redraw instructions. PERFORMED BY: [facility] [address] [place] [id number] PATHOLOGIST PERCUSSION TEACHER ANGELIC RANDOLPH M.D. Performed By: #### M G, LACTIC, PT, HS TROP, CMP, CK, BNP, PTT, CBC ####[facility] [id number] [place] [id number] [facility] Platelet mean volume Auto (B ld) [Entitic vol]Ordered By: David Reis on 07-21-2023 Platelet mean volume (Bld) [Entitic vol] 8.2 fL 6.6-10.[address] [facility] Platelets Auto (Bld) [#/Vol] Ordered By: David Reis on 07-21-2023 Platelets (Bld) [#/Vol] 192 10*3/uL 150-[address] [facility] Potassium [Moles/volume] in Serum or PlasmaOrdered By: David Reis on 07-21-2023 Potassium [Moles/Vol] 4.3 mmol/L 3.5-5.1 [facility] Protein Auto test strip (U) [Mass/Vol]Ordered By: David Reis on 07-21-2023 Protein (U) [Mass/Vol] Negative Negative [facility] Protein [Mass/volume] in Ser um or PlasmaOrdered By: David Reis on 07-21-2023 Protein [Mass/Vol] 6.9 g/dL 6.4-8.9 [facility] Prothrombin Time INRon 07-21 INR Coag (PPP) [Relative time] 2.2 {INR} Normal [facility] Comment on above: Result Comment: INR Therapeutic Range A) Pre- and Peroperative OAT started two weeks before surgery. NOT HIP SURGERY: 1.5 - 2.5 HIP SURGERY: 2 - 3 B) Primary and secondary prevention of venous THROMBOSIS: 2 - 3 C) Active venous thrombosis, pulmonary embolism and prevention of recurrent venous thrombosis: 2 - 3 D) Prevention of arterial thromboembolism including patients with mechanical heart valves: 3 - 4.5 Performed By: #### M G, LACTIC, PT, HS TROP, CMP, CK, BNP, PTT, CBC ####[facility] [place] [id number] [facility] PT Coag (PPP) [Time] 24.1 s High 9.0-12.9 [facility] Comment on above: Result Comment: A he matocrit value greater than 55% may lead to inaccurate results in coagulation testing. Patients having hematocrit values >55% require a special collection tube for coagulation studies. Please contact the laboratory at [phone] for redraw instructions. Performed By: #### M G, LACTIC, PT, HS TROP, CMP, CK, BNP, PTT, CBC ####[facility] [place] [id number] [facility] Prothrombin time (PT)Ordered By: David Reis on 07-21-2023 PT Coag (PPP) [Time] 24.1 s 9.0-12.9 [facility] Comment on above: A hematocrit value g reater than 55% may lead to inaccurate results in coagulation testing. Patients having hematocrit values >55% require a special collection tube for coagulation studies. Please contact the laboratory at [phone] for redraw instructions. RBC Auto (Bld) [#/Vol]Ordere d By: David Reis on 07-21-2023 RBC (Bld) [#/Vol] 4.46 10*6/uL 3.90-5.60 [facility] Serum or plasma albumin/glob ulin mass ratioOrdered By: David Reis on 07-21-2023 Albumin/Globulin [Mass ratio] 1.7 {ratio} [facility] Serum or plasma anion gap de terminationOrdered By: David Reis on 07-21-2023 Anion gap [Moles/Vol] 8.6 mmol/L 6.0-15.0 [facility] Sodium [Moles/volume] in Ser um or PlasmaOrdered By: David Reis on 07-21-2023 Sodium [Moles/Vol] 135 mmol/L 136-145 [facility] Specific gravity Auto test s trip (U) [Rel density]Ordered By: David Reis on 07-21-2023 Specific gravity (U) [Rel density] 1.011 1.001-1.[address] [facility] Squamous epithelial cells de tection in urine sediment by light microscopyOrdered By: David Reis on 07-21-2023 Epithelial cells.squamous LM Ql (Urine sed) None seen [HPF] 0-[address] [facility] Troponin I High Sensitivityo n 07-21-2023 Troponin I High Sensitivity 9.3 pg/mL Normal 0.0-20.[address] [facility] Comment on above: Result Comment: PERF ORMED BY: [facility] [address] [place] [address] PATHOLOGIST PERCUSSION TEACHER ANGELIC RANDOLPH M.D. Performed By: #### M G, LACTIC, PT, HS TROP, CMP, CK, BNP, PTT, CBC ####[facility] [id number] Troponin I.cardiac [Mass/vol ume] in Serum or Plasma by Detection limit <= 0.01 ng/Ordered By: David Reis on 07-21-2023 Troponin I.cardiac DL <= 0.01 ng/mL [Mass/Vol] 9.3 pg/mL 0.0-20.[address] [facility] Urea nitrogen [Mass/volume] in Serum or PlasmaOrdered By: David Reis on 07-21-2023 Urea nitrogen [Mass/Vol] 38 mg/dL 7-[address] [facility] Urine bacteria detection by automated methodOrdered By: David Reis on 07-21-2023 Bacteria Auto Ql (U) None seen None Seen [facility] Urine clarity by refractomet ry automatedOrdered By: David Reis on 07-21-2023 Clarity Refractometry automated (U) Clear Clear [facility] Urine glucose measurement by automated test strip (mass/volume)Ordered By: David Reis on 07-21-2023 Glucose Auto test strip (U) [Mass/Vol] Normal mg/dL Normal [facility] Urine hemoglobin detection b y automated test stripOrdered By: David Reis on 07-21-2023 Hemoglobin Auto test strip Ql (U) 2+ Negative [facility] Urine leukocyte esterase det ection by automated test stripOrdered By: David Reis on 07-21-2023 Leukocyte esterase Auto test strip Ql (U) Negative Negative [facility] Urobilinogen Auto test strip (U) [Mass/Vol]Ordered By: David Reis on 07-21-2023 Urobilinogen (U) [Mass/Vol] Normal mg/dL Normal [facility] WBC Auto (Bld) [#/Vol]Ordere d By: David Reis on 07-21-2023 WBC (Bld) [#/Vol] 7.7 10*3/uL 4.1-10.5 [facility] XR chest 2V*on 07-21-2023 XR chest 2V* [facility] [place] [address] XRay Report Signed Patient: Magdaleno Valderrama MR#: [id number] : 1940 Acct:[id number] Age/Sex: 83 / M ADM Date: 07/21/23 Loc: ER Room: Type: PRE ER Attending Dr: Copies to: David Reis PA-C Ordering Provider: David Reis PA-C Date of Service: 07/21/23 XR/XR chest 2V*: Weakness Plain film chest 2 view HISTORY: Weakness. Lethargic. COMPARISON: 12/29/2022 FINDINGS: SUPPORT DEVICES: None POSTSURGICAL CHANGES: Cardiac device remains intact. HEART: Within normal limits PULMONARY MARIANGEL: Within normal limits MEDIASTINUM: Unremarkable LUNGS AND PLEURA: No acute lung process, pleural effusion or pneumothorax identified. Mild atelectasis. BONY STRUCTURES: Intact ADDITIONAL FINDINGS None XR/XR chest 2V* IMPRESSION: No acute process. Impression dictated by: Parminder Rodriguez M.D.07/21/2023 1:15 PM Dictation Location: [place] [address] Transcribed By: [facility] 07/21/23 1316 Dictated By: Parminder Rodriguez DO 07/21/23 1314 Signed By: 07/21/23 [address] [facility] pH Auto test strip (U)Ordere d By: David Reis on 07-21-2023 pH (U) 5.5 [pH] 5.0-9.[address] [facility] ED Note-Physicianon 07-19-20 ED Note-Physician [id number]#[id number] Normal [facility] ED Note-Physician [id number]#1.00TIFF Normal [facility] Family Medicine Office/Clini c Noteon 07-19-2023 Family Medicine Office/Clinic Note HPI Staff Magdaleno is an 83 year old male presenting for ER follow up attempted a pulse ox 3 times, cannot get one ER followup: Hospital: [facility] Visit date: 07/14 Symptoms the patient presented with: chest was bleeding from excision of a lesion at [facility] Current concerns: here to get the bandage off, whole bandage is caked in dried blood Son says he's in a fib and his current top carrier is out of the office and has the cardioversion scheduled for Aug 01, he's on 2 meds to try and get him through it until then He can walk about 15 steps and then has to stop, hasn't been outside at all and he's very weak and his legs give out flu: UTD History of Present Illness Magdaleno Valderrama is an 83-year-old male who presents today for a follow-up evaluation of a mass on his chest. He is accompanied by his son. According to the son, the patient had an pacemaker defibrillator inserted a long time ago. He reports that the lesion was excised and cauterized. He recalls that on 07/14/2022, he was preparing to take a shower and the lesion fell off. He says that he removed the lesion completely and it started bleeding profusely. He adds that he could not stop the bleeding. He says that he went to the emergency department at 2:00 AM. He reports that they stitched it. He says that they only wanted to remove the dressing. He says that Dr. Ojeda informed him that he has atrial fibrillation again. He says that they have medications to manage the atrial fibrillation. He says that they have to wait until 08/01/2023 because he is on vacation. He says that he has been there for 2 weeks. Review of Systems PHQ Score Initial Depression Screen Score: 2 SCORE Physical Exam Vitals & Measurements T: 36.4 ?C(Temporal Artery) HR: 102(Peripheral) RR: 18 BP: 102/66 HT: 68 in HT: 172.2 cm WT: 62.2 kg WT: 136.84 lb BMI: 20.98 General: alert, no acute distress Cardiovascular: regular rate and rhythm, normal peripheral perfusion Respiratory: Lungs CTA, respirations non labored Extremities: no deformity, no trauma Neurological: oriented x 4, LOC appropriate for age, CN II-XII intact, motor strength equal & normal bilaterally, speech normal Assessment/Plan Total time spent preparing for the encounter, evaluating and assessing the patient, documenting the visit, and ordering appropriate follow-up work was 50 minutes. 1. Persistent atrial fibrillation (I48.19: Other persistent atrial fibrillation) Will continue using the anticoagulation. Recommend follow up with the top carrier. Gave precautions of when to go to the ER and when it is okay to be in atrial fibrillation still. Son and patient understand and are in agreement. 2. Mass of chest (R22.2: Localized swelling, mass and lump, trunk) This is where the bleeding was and the dried blood was noted covered in a bandage. Bandage was removed with no apparent oozing at this time. Area is still is an open ulcer after the removal of the mass and dressing was applied. Patient should follow up with dermatology. 3. 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 Patient and his son are in agreement. We will see the patient at his next follow-up 4. BMI 26.0-26.9,adult (Z68.26: Body mass index [BMI] 26.0-26.9, adult) 5. Overweight child (E66.3: Overweight) 6. Former smoker (Z87.891: Personal history of nicotine dependence) Portions of this record may have been created with voice recognition artificial intelligence software, specifically [employer], [employer] and or [employer]. Substitutions may have occurred due to the inherent limitations of voice recognition and artificial intelligence software. ATTESTATION: Documentation services were performed after patient or guardian consented to allow Mati Shelton to record this visit. RASHAUN wildland fire fighter specialist and provider reviewed before signing. 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 Atrial premature beats BPH with urinary obstruction CKD (chronic kidney disease) Cognitive dysfunction Constipation in male Gout History of colon cancer History of prostate cancer History of skin cancer Hypercholesterolemia Hyponatremia Hypothyroidism Mass of chest Maxillary sinusitis, chronic On anticoagulant therapy Orthostatic hypotension BINA (obstructive sleep apnea) Parkinson's disease Persistent atrial fibrillation Primary insomnia Raynaud's disease Skin infection Spondylosis Vitamin D deficiency Weight loss, unintentional Historical Elevated PSA Procedure/Surgical History Cardiac pacemaker (Week of 09/25/2022), Cystoscopy (05/24/2013), External beam radiotherapy (03/2011), Transrectal biopsy of prostate using ult (more content not included)... Normal [facility] Comment on above: Result Comment: Elec tronically Signed By: Christo Saab MD\.br\Date and Time Signed: 07/19/23 17:34 EST\.br\Electronically Co-Signed By: Rex Licona\.br\Date and Time Co-Signed: 07/19/23 17:19 EST Patient Educationon 07-19-20 Patient Education Cardiovascular Atrial Fibrillation Atrial fibrillation is a type of irregular or rapid heartbeat (arrhythmia). In atrial fibrillation, the top part of the heart (atria) beats in an irregular pattern. This makes the heart unable to pump blood normally and effectively. The goal of treatment is to prevent blood clots from forming, control your heart rate, or restore your heartbeat to a normal rhythm. If this condition is not treated, it can cause serious problems, such as a weakened heart muscle (cardiomyopathy) or a stroke. What are the causes? This condition is often caused by medical conditions that damage the heart's electrical system. These include: ? High blood pressure (hypertension). This is the most common cause. ? Certain heart problems or conditions, such as heart failure, coronary artery disease, heart valve problems, or heart surgery. ? Diabetes. ? Overactive thyroid (hyperthyroidism). ? Obesity. ? Chronic kidney disease. In some cases, the cause of this condition is not known. What increases the risk? This condition is more likely to develop in: ? Older people. ? People who smoke. ? Athletes who do endurance exercise. ? People who have a family history of atrial fibrillation. ? Men. ? People who use drugs. ? People who drink a lot of alcohol. ? People who have lung conditions, such as emphysema, pneumonia, or COPD. ? People who have obstructive sleep apnea. What are the signs or symptoms? Symptoms of this condition include: ? A feeling that your heart is racing or beating irregularly. ? Discomfort or pain in your chest. ? Shortness of breath. ? Sudden light-headedness or weakness. ? Tiring easily during exercise or activity. ? Fatigue. ? Syncope (fainting). ? Sweating. In some cases, there are no symptoms. How is this diagnosed? Your health care provider may detect atrial fibrillation when taking your pulse. If detected, this condition may be diagnosed with: ? An electrocardiogram (ECG) to check electrical signals of the heart. ? An ambulatory building construction ironworker to record your heart's activity for a few days. ? A transthoracic echocardiogram (TTE) to create pictures of your heart. ? A transesophageal echocardiogram (ENRIQUE) to create even closer pictures of your heart. ? A stress test to check your blood supply while you exercise. ? Imaging tests, such as a CT scan or chest X-ray. ? Blood tests. How is this treated? Treatment depends on underlying conditions and how you feel when you experience atrial fibrillation. This condition may be treated with: ? Medicines to prevent blood clots or to treat heart rate or heart rhythm problems. ? Electrical cardioversion to reset the heart's rhythm. ? A pacemaker to correct abnormal heart rhythm. ? Ablation to remove the heart tissue that sends abnormal signals. ? Left atrial appendage closure to seal the area where blood clots can form. In some cases, underlying conditions will be treated. Follow these instructions at home: Medicines ? Take over-the counter and prescription medicines only as told by your health care provider. ? Do not take any new medicines without talking to your health care provider. ? If you are taking blood thinners: ? Talk with your health care provider before you take any medicines that contain aspirin or NSAIDs, such as ibuprofen. These medicines increase your risk for dangerous bleeding. ? Take your medicine exactly as told, at the same time every day. ? Avoid activities that could cause injury or bruising, and follow instructions about how to prevent falls. ? Wear a medical alert bracelet or carry a card that lists what medicines you take. Lifestyle ? Do not use any products that contain nicotine or tobacco, such as cigarettes, e-cigarettes, and chewing tobacco. If you need help quitting, ask your health care provider. ? Eat heart-healthy foods. Talk with a dietitian to make an eating plan that is right for you. ? Exercise regularly as told by your health care provider. ? Do not drink alcohol. ? Lose weight if you are overweight. ? Do not use drugs, including cannabis. General instructions ? If you have obstructive sleep apnea, manage your condition as told by your health care provider. ? Do not use diet pills unless your health care provider approves. Diet pills can make heart problems worse. ? Keep all follow-up visits as told by your health care provider. This is important. Contact a health care provider if you: ? Notice a change in the rate, rhythm, or strength of your heartbeat. ? Are taking a blood thinner and you notice more bruising. ? Tire more easily when you exercise or do heavy work. ? Have a sudden change in weight. Get help right away if you have: ? Chest pain, abdominal pain, sweating, or weakness. ? Trouble breathing. (more content not included)... [facility] [id number]#[id number] [facility] [place] 07-17-2023 DAVIDN Telephone (NREUS2) -- MAGDALENO VALDERRAMA ([id number]) 1940 Date Time Provider Department 07/17/23 EFREN CARBAJAL NREUS2 During your visit today, we recorded the following information about you: Kacie Ferguson 07/17/2023 1:27 PM Signed NI PHONE Name of caller: Cristian Relationship to patient: Son/Daughter If not self Will need patient permission to release results or disclose health information with called documented in fyi. Was permission obtained from patient? Yes Patient identified by Name and Date of . ( Magdaleno Valderrama, 1940). Yes Reason for Call : Cristian calling to say that patient took Inbrija for 6 days and he was having bad nightmares. Cristian said they read up that this can be a side effect so he stopped the medicine Monday. Last night his father didn't have any nightmares. He wants to know if it's okay to stop this medication? Number to return call [phone] Okay to leave a message? Yes Efren Carbajal, 07/17/2023 2:53 PM Signed That is fine - the wearing-off will continue Efren Carbajal, July 17, 2023 2:53 PM Maurice Canela RN 07/17/2023 3:07 PM Signed Cristian (son) was notified and informed it is OK for Magdaleno to stop Inbrija. Allergies As of Date: 07/17/2023 Noted Allergy Reaction NEOSPORIN ([id number]* Date Reviewed: 10/20/2022 Reviewed by: Ulysses Richard LPN - Fully Assessed Reason for Visit: Medication Question [1478] Cmt: Inbrija Visit Diagnosis:Motor fluctuations related to medication use in Parkinson's disease [G20.A2, T42.8X5A] Prescriptions as of 07/17/2023 - donepezil (ARICEPT) 10 mg tablet Take 1 tablet by mouth once daily. Take 1 tablet by mouth daily. - levodopa (INBRIJA) 42 mg Inhale 2 capsules by mouth as needed for medication wearing off episodes. Use no more than five times a day. - furosemide (LASIX) 40 mg tablet Take 1 tablet by mouth three times a day. - carbidopa-levodopa (SINEMET 25-100) 25-100 mg per tablet Take 1.5 tablets of immediate release levodopa/carbidopa 25/100 mg at 6 AM, 10 AM, 2 PM, and 6 PM - carbidopa-levodopa CR (SINEMET CR) 50-200 mg per tablet Take 1 tablet of controlled release levodopa/carbidopa 50/200 mg at 6 AM, 10 AM, 2 PM, and 6 PM - clonazePAM (KLONOPIN) 0.5 mg tablet Take by mouth. - ELIQUIS 5 mg tab(s) Take 5 mg by mouth twice daily. - vit C/E/Zn/coppr/lutein/zeaxan (PRESERVISION AREDS-2 ORAL) Take by mouth. - levothyroxine (SYNTHROID) 100 mcg tablet 1.5 tab on Mondays, one other 6 days. - allopurinol (ZYLOPRIM) 300 mg tablet Take 1 tablet by mouth once daily. - atorvastatin 20 mg tablet Take 20 mg by mouth once daily. - Cholecalciferol, Vitamin D3, 25 mcg (1,000 unit) cap Take 1,000 Units by mouth once daily. - cyanocobalamin(VITAMIN B-12 500 MCG TAB) Take one(1) tablet daily. 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] 08/25/2022 Disturbance in sleep behavior [G47.9] 08/25/2022 Grief [F43.21] 08/25/2022 Encounter Status:Closed by MAURICE CANELA on 07/17/23 [facility] Consultation Noteon 07-10-20 Consultation Note [id number] [facility] ECG 12 [place] 07-05-2023 [facility] Work Phone: Baseline rhythm like ly A-fib with paced rhythm [facility] Work Phone: Ambulatory Visit Summaryon 1 08-21-2022 Ambulatory Visit Summary MAGDALENO VALDERRAMA Yusuf :1940 Visit Date:06/21/2023 Ambulatory Visit Instructions Your Diagnosis Mass of chest Skin infection BMI 21.0-21.9, adult Non-smoker Your Care Team Attending Physician - Lisa Farooq Primary Care Physician - Christo Saab MD This Is Your Medications List apixaban (Eliquis 5 mg oral tablet) atorvastatin (atorvastatin 20 mg Tab) carbidopa-levodopa (carbidopa-levodopa 25 mg-100 mg Tab) carbidopa-levodopa (carbidopa-levodopa 50 mg-200 mg ER Tab) cephalexin (cephalexin 500 mg Cap) cholecalciferol (Vitamin D3) clonazepam (ClonazePAM 0.5 mg Tab) cyanocobalamin (Vitamin B12) donepezil (donepezil 10 mg Tab) furosemide (furosemide 40 mg Tab) levothyroxine (levothyroxine 100 mcg (0.1 mg) Tab) melatonin (Melatonin 5 mg oral tablet) melatonin (melatonin 10 mg oral tablet) rasagiline (rasagiline 1 mg oral tablet) spironolactone (spironolactone 25 mg Tab) Procedures Performed Cardiac pacemaker (Week of 09/25/2022), Cystoscopy (05/24/2013), External beam radiotherapy (03/2011), Transrectal biopsy of prostate using ultrasound (US) guidance (12/31/2010), Biopsy of skin, Esophagoduodenostomy. Discharge Vitals Heart Rate (Peripheral) 78 Respiratory Rate 18 Blood Pressure 116/68 Height 172.2 cm Height 68 in Weight 64.0 kg Weight 140.8 lb BMI 21.58 What to do next Scheduled Follow-Up Appointments Monday 10:00 AM EST With: Christo Saab MD Where: [facility] Normal [facility] Ambulatory Visit Summary MAGDALENO VALDERRAMA :1940 Visit Date:06/21/2023 Ambulatory Visit Instructions Your Diagnosis Mass of chest Skin infection BMI 21.0-21.9, adult Non-smoker Your Care Team Attending Physician - Lisa Farooq Primary Care Physician - Christo Saab MD This Is Your Medications List apixaban (Eliquis 5 mg oral tablet) atorvastatin (atorvastatin 20 mg Tab) carbidopa-levodopa (carbidopa-levodopa 25 mg-100 mg Tab) carbidopa-levodopa (carbidopa-levodopa 50 mg-200 mg ER Tab) cholecalciferol (Vitamin D3) clonazepam (ClonazePAM 0.5 mg Tab) cyanocobalamin (Vitamin B12) donepezil (donepezil 10 mg Tab) furosemide (furosemide 40 mg Tab) levothyroxine (levothyroxine 100 mcg (0.1 mg) Tab) melatonin (Melatonin 5 mg oral tablet) melatonin (melatonin 10 mg oral tablet) rasagiline (rasagiline 1 mg oral tablet) spironolactone (spironolactone 25 mg Tab) Procedures Performed Cardiac pacemaker (Week of 09/25/2022), Cystoscopy (05/24/2013), External beam radiotherapy (03/2011), Transrectal biopsy of prostate using ultrasound (US) guidance (12/31/2010), Biopsy of skin, Esophagoduodenostomy. Discharge Vitals Heart Rate (Peripheral) 78 Respiratory Rate 18 Blood Pressure 116/68 Height 172.2 cm Height 68 in Weight 64.0 kg Weight 140.8 lb BMI 21.58 What to do next Scheduled Follow-Up Appointments Monday 10:00 AM EST With: Christo Saab MD Where: [facility] [place] Normal [facility] CNCOon 06-21-2023 CNCO Letter Text Normal [facility] Medicine Office/Clini c Noteon 06-21-2023 Family Medicine Office/Clinic Note HPI Staff Magdaleno is an 83 year old male presenting for acute visit size of a quater raised area red/dry skin white/brown color center of neck onset 1.5 months ago, was sore to touch now doesn't hurt anymore, does have bloody discharge. pt states he has tried to pull if off sometimes. History of Present Illness pt presents today with mass on left upper inner chest. has been there about 1.5 months Review of Systems PHQ Score Initial Depression Screen Score: 0 SCORE ROS - Provider Constitutional: no fever, no chills, no sweats, no fatigue Respiratory: no shortness of breath, no cough, no orthopnea, no wheezing. Cardiovascular: no chest pain, no palpitations, no edema. Neurologic: no headache, no dizziness, no numbness, no weakness. lump on chest bloody discharge Physical Exam Vitals & Measurements HR: 78(Peripheral) RR: 18 BP: 116/68 HT: 68 in HT: 172.2 cm WT: 64.0 kg WT: 140.8 lb BMI: 21.58 General: alert, no acute distress ENMT: oral mucosa moist, no pharyngeal erythema or exudate Cardiovascular: regular rate and rhythm, normal peripheral perfusion Respiratory: Lungs CTA, respirations non labored Extremities: no deformity, no trauma Neurological: oriented x 4, LOC appropriate for age, CN II-XII intact, motor strength equal & normal bilaterally, speech normal quarter sized mass on left upper inner chest, oozing serosanguinous fluid, skin around mass is red and warm to touch Assessment/Plan 1. Mass of chest (R22.2: Localized swelling, mass and lump, trunk) pt will call user interface artist in [place] to schedule biopsy concerned this may be cancerous. will send antibiotics for infection. Ordered: cephalexin, 500 mg = 1 cap(s), Oral, q12hr, # 20 cap(s), Refills(s) 0, Pharmacy: [id number], 172.2, cm, 06/21/23 14:45:00 EST, Height/Length Dosing, 64, kg, 06/21/23 14:45:00 EST, Weight Dosing 2. Skin infection (L08.9: Local infection of the skin and subcutaneous tissue, unspecified) will treat with antibiotics Ordered: cephalexin, 500 mg = 1 cap(s), Oral, q12hr, # 20 cap(s), Refills(s) 0, Pharmacy: [facility]/pharmacy #[id number], 172.2, cm, 06/21/23 14:45:00 EST, Height/Length Dosing, 64, kg, 06/21/23 14:45:00 EST, Weight Dosing 3. BMI 21.0-21.9, adult (Z68.21: Body mass index [BMI] 21.0-21.9, adult) bmi education complete Ordered: cephalexin, 500 mg = 1 cap(s), Oral, q12hr, # 20 cap(s), Refills(s) 0, Pharmacy: [facility]/pharmacy #[id number], 172.2, cm, 06/21/23 14:45:00 EST, Height/Length Dosing, 64, kg, 06/21/23 14:45:00 EST, Weight Dosing 4. 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 Atrial premature beats BPH with urinary obstruction CKD (chronic kidney disease) Cognitive dysfunction Constipation in male Gout History of colon cancer History of prostate cancer History of skin cancer Hypercholesterolemia Hyponatremia Hypothyroidism Mass of chest Maxillary sinusitis, chronic Orthostatic hypotension BINA (obstructive sleep apnea) Parkinson's disease Persistent atrial fibrillation Primary insomnia Raynaud's disease Skin infection Spondylosis Vitamin D deficiency Weight loss, unintentional Historical Elevated PSA Procedure/Surgical History Cardiac pacemaker (Week of 09/25/2022), Cystoscopy (05/24/2013), External beam radiotherapy (03/2011), Transrectal biopsy of prostate using ultrasound (US) guidance (12/31/2010), Biopsy of skin, Esophagoduodenostomy. Medications atorvastatin 20 mg Tab, 20 mg= 1 tab(s), Oral, Daily carbidopa-levodopa 25 mg-100 mg Tab, 1 tab(s), Oral, QID carbidopa-levodopa 50 mg-200 mg ER Tab, 1 tab(s), Oral, QID cephalexin 500 mg Cap, 500 mg= 1 cap(s), Oral, q12hr ClonazePAM 0.5 mg Tab, 0.5 mg= 1 tab(s), Oral, Once a day (at bedtime), 1 refills donepezil 10 mg Tab, 10 mg= 1 tab(s), Oral, Daily Eliquis 5 mg oral tablet, 5 mg= 1 tab(s), Oral, BID furosemide 40 mg Tab, 40 mg= 1 tab(s), Oral, Daily levothyroxine 100 mcg (0.1 mg) Tab, 100 mcg= 1 tab(s), Oral, Daily melatonin 10 mg oral tablet, 10 mg= 1 tab(s), Oral, Once a day (at bedtime), PRN Melatonin 5 mg oral tablet, 5 mg= 1 tab(s), Oral, Once a day (at bedtime), PRN rasagiline 1 mg oral tablet, Oral, Daily spironolactone 25 mg Tab, 25 mg= 1 tab(s), Oral, Daily Vitamin B12 Vitamin D3 Allergies Neosporin (Unknown) Social History Alcohol - Low Risk, 05/04/2021 Substance Abuse - No Risk, 05/04/2021 Tobacco - No Risk, 05/04/2021 Former smoker, quit more than 30 days ago Tobacco Use:. Cigarettes, Household tobacco concerns: No., 05/30/2023 Family His (more content not included)... Normal [facility] Comment on above: Result Comment: Elec tronically Signed By: Lisa Farooq\.br\Date and Time Signed: 06/21/23 15:51 EST Family Medicine Office/Clini c Noteon 06-01-2023 Family Medicine Office/Clinic Note HPI Staff Please speak with patient about scheduling an AWV. Magdaleno is an 82 year old male presenting for 3 month follow up thyroid, insomnia, BINA Patient is here for follow up on Thyroid Disease. Do you have any of the following symptoms? Change in energy level? yes it's lousy and been lousy Weight change? no Heat/cold intolerance? no feet and hands can get cold easily even in the house Hair/skin/nail changes? no Change in bowels? yes takes meds for constipation or will have issues Last TSH: he's unsure flu: will take today questions/concerns: nose running like crazy for months Needs his clonazepam refiled tried 3 times for a pulse ox will not register History of Present Illness Magdaleno Valderrama is an 82-year-old male who presents today for a follow-up evaluation of hypothyroidism. He is accompanied by an adult male. The patient presents with a complaint of persistent fatigue and requests a refill of his clonazepam medication. He has been dealing with continuous rhinorrhea for the last 3 months. He observed that his rhinorrhea seemed to have been triggered upon his arrival at the therapy area, which he noticed was being thoroughly cleaned. He notes that the rhinorrhea persists even on days when he does not have therapy sessions. 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 He has experienced instability and has fallen once in the furniture shampooer. They were informed that an increase in the Dopamine dosage is not possible due to its maximum limit. He acknowledges the need to schedule his appointments later in the day. His routine for the past few months involves waking up at 6:00 AM and staying awake until 9:00 AM, with therapy sessions typically at 10:00 AM. The edge drummer mentions that although he goes to bed at 9:00 PM, he struggles with insomnia until late at night. He had therapy today. He notes that the therapy really helps with his Parkinson's disease. He states that he wants to do what he could have done 20 years ago. He has received his flu vaccine. He has been for 64 years. She went to watch a football game on 05/27/2023 as a leisure activity. Review of Systems PHQ Score Initial Depression Screen Score: 1 Physical Exam Vitals & Measurements HR: 62(Peripheral) RR: 16 BP: 104/66 HT: 68 in HT: 172.2 cm WT: 64.6 kg WT: 142.12 lb BMI: 21.79 General: alert, no acute distress Extremities: no deformity, no trauma Neurological: oriented x 4, LOC appropriate for age, CN II-XII intact, motor strength equal & normal bilaterally, speech normal. Patient has a slight tremor today. Assessment/Plan 1. Hypothyroidism (E03.9: Hypothyroidism, unspecified) We are going to recheck thyroid levels today. 2. BINA (obstructive sleep apnea) (G47.33: Obstructive sleep apnea (adult) (pediatric)) We will have the patient continue using CPAP. 3. Primary insomnia (F51.01: Primary insomnia) Patient continues to do well with the clonazepam. We will continue to use it. The patient knows the pros and cons of using clonazepam. 4. Abdominal aortic atherosclerosis (I70.0: Atherosclerosis of aorta) The patient is on a statin and blood thinner. 5. BMI 21.0-21.9, adult (Z68.21: Body mass index [BMI] 21.0-21.9, adult) BMI education given. 6. Parkinson's disease (G20: Parkinson's disease) The patient is doing very well today, not shaking as much. We will see the patient back in 3 months. Encounter for immunization (Z23: Encounter for immunization) Portions of this record may have been created with voice recognition artificial intelligence software, specifically [employer], [employer] and or [employer]. Substitutions may have occurred due to the inherent limitations of voice recognition and artificial intelligence software. Documentation services were performed after patient or guardian consented to allow [employer] to record this visit. RASHAUN wildland fire fighter specialist and provider reviewed before signing. 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 Atrial premature beats BPH with urinary obstruction Cognitive dysfunction Constipation in male Gout History of colon cancer History of prostate cancer History of skin cancer Hypercholesterolemia Hypothyroidism Maxillary sinusitis, chronic Orthostatic hypotension BINA (obstructive sleep apnea) Parkinson's disease Persistent atrial fibrillation Primary insomnia Raynaud's disease Spondylosis Vitamin D deficiency Weight loss, unintentional Historical Elevated PSA Procedure/Surgical History Cardiac pacemaker (Week of 09/25/2022), Cystoscopy (05/24/2013), External beam radiotherapy (03/2011), Transrectal biopsy of prostate using ultrasound (US) guidance (12/31/2010), Biopsy of skin, Esophagoduoden (more content not included)... Normal [facility] Comment on above: Result Comment: Elec tronically Signed By: Christo Saab MD\.br\Date and Time Signed: 06/01/23 10:07 EDT\.br\Electronically Co-Signed By: Marcela Guillen.br\Date and Time Co-Signed: 05/30/23 18:30 EDT Retail - Clinical Noteon Retail - Clinical Note [id number]#1.00TIFF [facility] Retail - Clinical Note [id number]#1.00TIFF [facility] Retail - Clinical Note [id number]#1.00TIFF [facility] Consent for Flu Vaccineon Consent for Flu Vaccine [id number]#1.00TIFF [facility] Ambulatory Visit Summaryon 1 Ambulatory Visit Summary MAGDALENO VALDERRAMA :1940 Visit Date:05/30/2023 Ambulatory Visit Instructions Your Diagnosis Hypothyroidism BINA (obstructive sleep apnea) Primary insomnia Abdominal aortic atherosclerosis BMI 21.0-21.9, adult Parkinson's disease Encounter for immunization Tests Performed CBC w/ Auto Diff -- Results Pending -- CMP -- Results Pending -- TSH With T4fr Reflex -- Results Pending -- Please visit your patient portal for your results or contact your primary care physician. Your Care Team Attending Physician - Christo Saab MD. Primary Care Physician - Christo Saab MD. This Is Your Medications List clonazepam (ClonazePAM 0.5 mg Tab) Contact prescribing physician if questions or concerns apixaban (Eliquis 5 mg oral tablet) atorvastatin (atorvastatin 20 mg Tab) carbidopa-levodopa (carbidopa-levodopa 25 mg-100 mg Tab) carbidopa-levodopa (carbidopa-levodopa 50 mg-200 mg ER Tab) cholecalciferol (Vitamin D3) cyanocobalamin (Vitamin B12) donepezil (donepezil 10 mg Tab) furosemide (furosemide 40 mg Tab) levothyroxine (levothyroxine 100 mcg (0.1 mg) Tab) melatonin (Melatonin 5 mg oral tablet) melatonin (melatonin 10 mg oral tablet) rasagiline (rasagiline 1 mg oral tablet) spironolactone (spironolactone 25 mg Tab) Procedures Performed Cardiac pacemaker (Week of 09/25/2022), Cystoscopy (05/24/2013), External beam radiotherapy (03/2011), Transrectal biopsy of prostate using ultrasound (US) guidance (12/31/2010), Biopsy of skin, Esophagoduodenostomy. Discharge Vitals Heart Rate (Peripheral) 62 Respiratory Rate 16 Blood Pressure 104/66 Height 172.2 cm Height 68 in Weight 64.6 kg Weight 142.12 lb BMI 21.79 Medications What How Much When Instructions Unchanged clonazepam (ClonazePAM 0.5 mg Tab) 1 Tablets By Mouth Once a day (at bedtime) Pickup at [facility]/pharmacy #[id number] Unchanged apixaban (Eliquis 5 mg oral tablet) 1 Tablets By Mouth 2 times a day Contact prescribing physician if questions or concerns Unchanged atorvastatin (atorvastatin 20 mg Tab) 1 Tablets By Mouth Every day Contact prescribing physician if questions or concerns Unchanged carbidopa-levodopa (carbidopa-levodopa 25 mg-100 mg Tab) 1 Tablets By Mouth 4 times a day Contact prescribing physician if questions or concerns Unchanged carbidopa-levodopa (carbidopa-levodopa 50 mg-200 mg ER Tab) 1 Tablets By Mouth 4 times a day Contact prescribing physician if questions or concerns Unchanged cholecalciferol (Vitamin D3) Contact prescribing physician if questions or concerns Unchanged cyanocobalamin (Vitamin B12) Contact prescribing physician if questions or concerns Unchanged donepezil (donepezil 10 mg Tab) 1 Tablets By Mouth Every day Contact prescribing physician if questions or concerns Unchanged furosemide (furosemide 40 mg Tab) 1 Tablets By Mouth Every day Contact prescribing physician if questions or concerns Unchanged levothyroxine (levothyroxine 100 mcg (0.1 mg) Tab) 1 Tablets By Mouth Every day Contact prescribing physician if questions or concerns Unchanged melatonin (melatonin 10 mg oral tablet) 1 Tablets By Mouth Once a day (at bedtime) as needed for Insomnia Contact prescribing physician if questions or concerns Unchanged melatonin (Melatonin 5 mg oral tablet) 1 Tablets By Mouth Once a day (at bedtime) as needed for for insomnia Contact prescribing physician if questions or concerns Unchanged rasagiline (rasagiline 1 mg oral tablet) By Mouth Every day Contact prescribing physician if questions or concerns Unchanged spironolactone (spironolactone 25 mg Tab) 1 Tablets By Mouth Every day Contact prescribing physician if questions or concerns Pharmacy Information [facility]/pharmacy #[id number]: [address], [place] [id number] [phone] Medications and Immunizations Administered Given influenza virus vaccine, inactivated HIGH DOSE preservative-free quadrivalent intramuscular susp, 0.7 mL, IntraMuscular. For: Hypothyroidism, BINA (obstructive sleep apnea), Primary insomnia, Abdominal aortic atherosclerosis, BMI 21.0-21.9, adult influenza virus vaccine, inactivated, IntraMuscular Allergies Neosporin (Unknown) Problems Ongoing - Any problem that you are currently receiving treatment for. 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 Elevated PSA Patient Surve (more content not included)... Normal [facility] Auto Diffon 05-30-2023 Basophils/100 WBC (Bld) 0.3 % Normal 0.0-2.0 [facility] Comment on above: Order Comment: Order Added by Discern Expert. Performed By: #### 2 [id number], [id number], 0903177, 8825671, [id number] ####[facility] [address] [place] [address] Basophils/Leukocytes Auto (Bld) [Pure # fraction] 0.0 E9/L Normal 0.0-0.2 [facility] Comment on above: Order Comment: Order Added by Mj Expert. Performed By: #### 2 760664, [id number], 1706789, 3138186, 45556681 ####[facility] [address] [place] [address] Eosinophils/100 WBC (Bld) 1.6 % Normal 0.0-8.0 [facility] Comment on above: Order Comment: Order Added by Discern Expert. Performed By: #### 2 767958, 13899417, 5554806, 3002850, 15735824 ####[facility] [address] [place] [address] Eosinophils/Leukocytes Auto (Bld) [Pure # fraction] 0.1 E9/L Normal 0.0-0.5 [facility] Comment on above: Order Comment: Order Added by Discern Expert. Performed By: #### 2 308189, 44541442, 4025548, 6542165, 22581195 ####[facility] [address] [place] [address] Lymphocytes/100 WBC (Bld) 21.8 % Normal 14.0-50.0 [facility] Comment on above: Order Comment: Order Added by Discern Expert. Performed By: #### 2 381716, 73337382, 2815655, 0982481, 35228956 ####[facility] [address] [place] [address] Lymphocytes/Leukocytes Auto (Bld) [Pure # fraction] 1.7 E9/L Normal 1.0-4.0 [facility] Comment on above: Order Comment: Order Added by Mj Expert. Performed By: #### 2 428720, 90846657, 6608553, 7433920, 78048613 ####[address] [address] Monocytes/100 WBC (Bld) 10.9 % Normal 4.0-14.0 [facility] Comment on above: Order Comment: Order Added by Mj Expert. Performed By: #### 2 253234, 17165464, 6195264, 8695035, 01317567 ####[address] [place] [address] Monocytes/Leukocytes Auto (Bld) [Pure # fraction] 0.9 E9/L Normal 0.2-1.0 [facility] Comment on above: Order Comment: Order Added by Mj Expert. Performed By: #### 2 408160, 27167163, 7192360, 1131950, 23131580 ####[address] [address] Neutrophils/100 WBC (Bld) 65.4 % Normal 36.0-75.0 [facility] Comment on above: Order Comment: Order Added by Mj Expert. Performed By: #### 2 517253, 11303220, 7080762, 4166487, 39027875 ####[facility] [address] [place] [address] Neutrophils/Leukocytes Auto (Bld) [Pure # fraction] 5.2 E9/L Normal 2.0-7.5 [facility] Comment on above: Order Comment: Order Added by Discern Expert. Performed By: #### 2 474089, 50812207, 2816320, 8343736, 48556882 ####[address] [place] [address] CBC w/ Auto Diffon 3 Erythrocyte distribution width (RBC) [Ratio] 14.7 % High 10.9-14.2 [facility] Comment on above: Performed By: #### 2 209112, 03464710, 0662356, 7065761, 69420269 ####[address] [place] [address] Hematocrit (Bld) [Volume fraction] 41.6 % Normal 37.7-49.0 [facility] Comment on above: Performed By: #### 2 464932, 90288285, 9773832, 7609261, 17895813 ####[address] [place] [address] Hemoglobin (Bld) [Mass/Vol] 13.7 g/dL Normal 13.5-17.5 [facility] Comment on above: Performed By: #### 2 266861, 57682626, 4298741, 5372230, 91368604 ####[facility] [address] [place] [address] MCH (RBC) [Entitic mass] 30.4 pg Normal 27.0-34.0 [facility] Comment on above: Performed By: #### 2 487824, 18099055, 3812984, 6279864, 71306803 ####[address] [place] [address] MCHC (RBC) [Mass/Vol] 33.0 g/dL Normal 31.4-36.0 [facility] Comment on above: Performed By: #### 2 325472, 18611009, 2204421, 6458989, 36212331 ####[address] [place] [address] MCV (RBC) [Entitic vol] 92.0 fL Normal 80.0-100.0 [facility] Comment on above: Performed By: #### 2 082672, 74707463, 1913804, 7725698, 08011240 ####[address] [address] Platelet mean volume (Bld) [Entitic vol] 8.8 fL Normal 6.4-10.8 [facility] Comment on above: Performed By: #### 2 527811, 29764833, 8240371, 5754384, 84485199 ####[address] [address] Platelets (Bld) [#/Vol] 178.0 E9/L Normal 150.0-500. 0 [facility] Comment on above: Performed By: #### 2 346051, 92788707, 6860982, 2555784, 60094570 ####[address] [address] RBC (Bld) [#/Vol] 4.5 E12/L Normal 4.3-5.9 [facility] Comment on above: Performed By: #### 2 036609, 88628251, 9639822, 4746620, 63949699 ####[address] [place] [address] WBC corrected for nucl RBC Auto (Bld) [#/Vol] 8.0 E9/L Normal 4.0-11.0 [facility] Comment on above: Performed By: #### 2 113024, 14946509, 5957505, 0930977, 49516145 ####[address] [place] [address] CHEMISTRYOrdered By: SYSTEM SYSTEM on 05-30-2023 Albumin [Mass/Vol] 4.3 g/dL Normal 3.3 - 5.0 gm/dL [facility] Albumin/Globulin [Mass ratio] 1.6 {ratio} Normal 1.1 - 2.2 [facility] ALP [Catalytic activity/Vol] 80 [iU]/d Normal 21 - 98 Int._Unit/ L [facility] ALT No additional P-5'-P [Catalytic activity/Vol] 6 [iU]/d Normal 6 - 46 Int._Unit/ L [facility] Anion gap [Moles/Vol] 9 mmol/L Normal 6 - 16 mEq/L [facility] AST [Catalytic activity/Vol] 22 [iU]/d Normal 5 - 43 Int._Unit/ L [facility] Bilirubin [Mass/Vol] 0.3 mg/dL Normal 0.0 - 1 .1 mg/dL [facility] Calcium [Mass/Vol] 9.4 mg/dL Normal 8.9 - 11. 1 mg/dL [facility] Chloride [Moles/Vol] 102 mmol/L Normal 101 - 1 11 mmol/L [facility] CO2 [Moles/Vol] 27 mmol/L Normal 21 - 31 mmol/L [facility] Creatinine [Mass/Vol] 1.4 mg/dL High 0.5 - 1.3 mg/dL [facility] GFR/1.73 sq M.predicted among non-blacks MDRD (S/P/Bld) [Vol rate/Area] 50 mL/min/1.73 m2 Low >=59mL/min /1.73 m2 [facility] Comment on above: Interpretive Data: C hronic kidney disease could be indicated at eGFR's of less than 60 mL/min/1.73m2. Kidney failure is indicated at less than 15 mL/min/1.73m2. Globulin (S) [Mass/Vol] 2.6 g/dL Normal 1.4 - 4.0 gm/dL [facility] Glucose [Mass/Vol] 99 mg/dL Normal 55 - 199 mg/dL [facility] Comment on above: Interpretive Data: I f this glucose result represents a fasting glucose, interpretation should refer to the following reference range: 55-99 mg/dL Potassium [Moles/Vol] 4.4 mmol/L Normal 3.5 - 5.3 mmol/L [facility] Protein [Mass/Vol] 6.9 g/dL Normal 6.0 - 7.8 gm/dL [facility] Sodium [Moles/Vol] 134 mmol/L Low 135 - 145 mmol/L [facility] TSH Qn 0.39 m[IU]/L Normal 0.34 - 5.60 mcIU/mL [facility] Urea nitrogen [Mass/Vol] 32 mg/dL High 5 - 21 mg/dL [facility] Urea nitrogen/Creatinine [Mass ratio] 23 mg/mg High 10 - 20 [facility] CMPon 05-30-2023 Albumin [Mass/Vol] 4.3 g/dL Normal 3.3-5.0 [facility] Comment on above: Performed By: #### 2 469162, 67621648, 4752503, 4250324, 37107214 ####[facility] [address] [place] [address] Albumin/Globulin (S) [Mass conc ratio] 1.6 Normal 1.1-2.2 [facility] Comment on above: Performed By: #### 2 287835, 28720822, 3993854, 8756790, 97869456 ####[facility] [address] [place] [address] ALP [Catalytic activity/Vol] 80 Int._Unit/L Normal 21-98 [facility] Comment on above: Performed By: #### 2 817159, 43919346, 4423196, 2855854, 53280092 ####[facility] [address] [place] [address] ALT No additional P-5'-P [Catalytic activity/Vol] 6 Int._Unit/L Normal 6-46 [facility] Comment on above: Performed By: #### 2 643406, 36009765, 2068030, 2232578, 84513483 ####[facility] [address] [place] [address] Anion gap [Moles/Vol] 9 mmol/L Normal 6-16 [facility] Comment on above: Performed By: #### 2 813820, 82262181, 6943690, 8785607, 10860906 ####[facility] [address] [place] [address] AST [Catalytic activity/Vol] 22 Int._Unit/L Normal 5-43 [facility] Comment on above: Performed By: #### 2 050673, 82293583, 0563733, 4485761, 80568543 ####[facility] [address] [place] [address] Bilirubin [Mass/Vol] 0.3 mg/dL Normal 0.0-1.1 [facility] Comment on above: Performed By: #### 2 798531, 99357401, 5747532, 0816493, 79461038 ####[facility] [address] [place] [address] Calcium [Mass/Vol] 9.4 mg/dL Normal 8.9-11.1 [facility] Comment on above: Performed By: #### 2 946573, 70908379, 8943583, 7956948, 03246017 ####[facility] [address] [place] [address] Chloride [Moles/Vol] 102 mmol/L Normal 101-111 [facility] Comment on above: Performed By: #### 2 657491, 58540361, 6806812, 1154694, 47786975 ####[facility] [address] [place] [address] CO2 [Moles/Vol] 27 mmol/L Normal 21-31 [facility] Comment on above: Performed By: #### 2 268814, 37185232, 6140931, 8304463, 09729661 ####[facility] [address] [place] [address] Creatinine [Mass/Vol] 1.4 mg/dL High 0.5-1.3 [facility] Comment on above: Performed By: #### 2 380990, 66593856, 7660750, 2843520, 08974577 ####[facility] [address] [place] [address] Globulin (S) [Mass/Vol] 2.6 g/dL Normal 1.4-4.0 [facility] Comment on above: Performed By: #### 2 566950, 34290376, 5339862, 8614607, 03427664 ####[facility] [address] [place] [address] Glucose [Mass/Vol] 99 mg/dL Normal 55-199 [facility] Comment on above: Result Comment: If t his glucose result represents a fasting glucose, interpretation should refer to the following reference range: 55-99 mg/dL Performed By: #### 2 767123, 29532221, 8375163, 4660474, 49284794 ####[facility] [address] [place] [address] Potassium [Moles/Vol] 4.4 mmol/L Normal 3.5-5.3 [facility] Comment on above: Performed By: #### 2 907835, 22586375, 4357490, 3290236, 12907771 ####[facility] [address] [place] [address] Protein [Mass/Vol] 6.9 g/dL Normal 6.0-7.8 [facility] Comment on above: Performed By: #### 2 658260, 21703194, 6195255, 4491073, 70778983 ####[facility] [address] [place] [address] Sodium [Moles/Vol] 134 mmol/L Low 135-145 [facility] Comment on above: Performed By: #### 2 697105, 36015332, 8696614, 1182808, 11783719 ####[facility] [address] [place] [address] Urea nitrogen [Mass/Vol] 32 mg/dL High 5-21 [facility] Comment on above: Performed By: #### 2 893667, 32333764, 2386246, 2537829, 30005233 ####[facility] [address] [place] [address] Urea nitrogen/Creatinine [Mass ratio] 23 No Units High 10-20 [facility] Comment on above: Performed By: #### 2 546358, 22214013, 5660564, 1132910, 87995903 ####[facility] [address] [place] [address] HEMATOLOGYOrdered By: SYSTEM SYSTEM on 05-30-2023 Basophils/100 WBC (Bld) 0.3 % Normal 0.0 - 2.0 % [facility] Basophils/Leukocytes Auto (Bld) [Pure # fraction] 0.0 E9/L Normal 0.0 - 0.2 E9/L [facility] Eosinophils/100 WBC (Bld) 1.6 % Normal 0.0 - 8.0 % [facility] Eosinophils/Leukocytes Auto (Bld) [Pure # fraction] 0.1 E9/L Normal 0.0 - 0.5 E9/L [facility] Lymphocytes/100 WBC (Bld) 21.8 % Normal 14.0 - 50.0 % [facility] Lymphocytes/Leukocytes Auto (Bld) [Pure # fraction] 1.7 E9/L Normal 1.0 - 4.0 E9/L [facility] Monocytes/100 WBC (Bld) 10.9 % Normal 4.0 - 14.0 % [facility] Monocytes/Leukocytes Auto (Bld) [Pure # fraction] 0.9 E9/L Normal 0.2 - 1.0 E9/L [facility] Neutrophils/100 WBC (Bld) 65.4 % Normal 36.0 - 75.0 % [facility] Neutrophils/Leukocytes Auto (Bld) [Pure # fraction] 5.2 E9/L Normal 2.0 - 7.5 E9/L [facility] HEMATOLOGYOrdered By: Cassie Horta on 05-30-2023 Erythrocyte distribution width (RBC) [Ratio] 14.7 % High 10.9 - 14.2 % [facility] Hematocrit (Bld) [Volume fraction] 41.6 % Normal 37.7 - 49.0 % [facility] Hemoglobin (Bld) [Mass/Vol] 13.7 g/dL Normal 13.5 - 17.5 gm/dL [facility] MCH (RBC) [Entitic mass] 30.4 pg Normal 27.0 - 34.0 pg [facility] MCHC (RBC) [Mass/Vol] 33.0 g/dL Normal 31.4 - 36.0 gm/dL [facility] MCV (RBC) [Entitic vol] 92.0 fL Normal 80.0 - 100.0 fL [facility] Platelet mean volume (Bld) [Entitic vol] 8.8 fL Normal 6.4 - 10.8 fL [facility] Platelets (Bld) [#/Vol] 178.0 E9/L Normal 150.0 - 500.0 E9/L [facility] RBC (Bld) [#/Vol] 4.5 E12/L Normal 4.3 - 5.9 E12/L [facility] WBC corrected for nucl RBC Auto (Bld) [#/Vol] 8.0 E9/L Normal 4.0 - 11.0 E9/L [facility] Physician Orderon 05-30-2023 Physician Order [id number]#[id number] Normal [facility] Pre-Visit Planningon 023 Pre-Visit Planning - From: Kacie Baez To: Reyna MEJIA, Christo Alas; Sent: 05/29/2023 09:56:39 EDT Subject: Pre-Visit Planning Due Date/Time: 05/29/2023 09:56:00 EDT Caller Name: MAGDALENO VALDERRAMA; Caller Number: Jahaira , M , B Va Dr. Saab. During a pre-visit planning chart review, I noted the following documentation in the medical record: Current Problem List: BINA, Atrial premature beats, Hypercholesterolemia, and Persistent atrial fibrillation. Current Medication List: apixaban, atorvastatin, furosemide, and spironolactone. 03/09/2023 XR Lumbar Spine (page 2): Severe calcified atherosclerosis of the abdominal aorta. Based on your medical judgment, can you please clarify which, if any, of the following conditions are present? I can update the Chronic Problem List with your response if you would like. -Abdominal aortic atherosclerosis -Other (please specify): In responding to this request, please exercise your independent professional judgement. The fact that a question is asked does not imply that any particular answer is desired or expected. If you have any questions, please feel free to contact me at [phone]. Thank you! Kacie Baez LPN From: Reyna MEJIA, Christo Alas To: Kacie Baez; Sent: 05/30/2023 08:32:47 EDT Subject: RE: Pre-Visit Planning Caller Name: MAGDALENO VALDERRAMA; Caller Number: Jahaira , M , B Please add to chart. Thanks Normal 272 [facility] TSH With T4fr Reflexon 05-30 TSH Qn 0.39 m[IU]/L Normal 0.34-5.60 [facility] Comment on above: Performed By: #### 2 495530, 13559286, 8503341, 7093582, 46369122 ####[facility] [address] [place] [address] eGFRon 05-30-2023 GFR/1.73 sq M.predicted among non-blacks MDRD (S/P/Bld) [Vol rate/Area] 50 mL/min/1.73 m2 Low >=59 [facility] Comment on above: Order Comment: Order added by Discern Expert. Result Comment: Fly Finisher herve kidney disease could be indicated at eGFR's of less than 60 mL/min/1.73m2. Kidney failure is indicated at less than 15 mL/min/1.73m2. Performed By: #### 2 715136, 28236449, 3928908, 8883669, 00701292 ####[facility] [address] [place] [address] Formson 05-10-2023 Forms [id number]#[id number] Normal [facility] ALDOLASE BLDon 05-05-2023 Aldolase [Catalytic activity/Vol] 4.8 mU/mL 1.5 - 8.1 U/L [facility] Aldolase SerPl-cCncon 2022 Aldolase [Catalytic activity/Vol] 4.8 mU/mL Normal 1.5-8.1 [facility] Comment on above: Order Comment: Daria taylor Type: BLOOD SPECIMEN Ordering Facility: [facility] Address: [address] [place] [address] Result Comment: This test was developed and its performance characteristics determined by [facility]'s [facility] [place] ([facility]). It has not been cleared or approved by the FDA. -[facility] is regulated under CLIA as qualified to perform high-complexity testing. This test is used for clinical purposes. It should not be regarded as investigational or for research. Performed By: #### 1 761-6 #### [facility] CLIA [id number] [address] [facility] [id number] [address] [place] CK CREATINE KINASEon 023 CK [Catalytic activity/Vol] 68 U/L 51 - 298 U/L [facility] CK SerPl-cCncon 05-05-2023 CK [Catalytic activity/Vol] 68 U/L Normal 51-298 [facility] Comment on above: Order Comment: Daria taylor Type: BLOOD SPECIMEN Ordering Facility: [facility] Address: [address] [place] [address] Performed By: #### 2 157-6, 53754-1, 30006-6 #### [facility] CLIA [id number] [address] [place], [place] [address] [place] [address] [place] CNOVon 05-05-2023 CNOV Office Visit (NRESFV ) -- MAGDALENO [id number]) 1940 M Date Time Provider Department 05/05/23 11:00 AM EFREN CARBAJAL NRESFV During your visit today, we recorded the following information about you: Temperature Pulse Blood pressure Weight 97.1 degrees 82/minute 120/59 62.6 kg Efren Carbajal, DO 05/05/2023 12:37 PM Signed [facility] - FOLLOW UP EVALUATION Amy Zuñiga MD [address] [facility] [address] Magdaleno Valderrama is a 82 year old right-handed male with a history of parkinsonism. He is seen with a son. Interval History Since Last Visit: For 2-months - he has worsening sleep, increased tremor and a few falls. He has leg aching. He will go to bed at 9P and wake up at midnight and stay awake. He is having more issues with walking - easily fatigued. He was unable to get INBRIJA (levodopa inhalation powder) 2/2 cost. He goes to a PD class in [place] 3x weekly. He has more difficulty getting out of a low chair. He does not use a cane properly. Parkinson's Medications Schedule: Medications 6 AM 10 AM 2 PM 6 PM Sinemet (carbidopa/levodopa) CR 50/200 1 1 1 1 Sinemet (carbidopa/levodopa) 25/100 1.5 1.5 1.5 1.5 Aricept (donepezil) 5mg x x x 1 Clonazepam 0.5 mg x x x 1 Miralax as needed Melatonin 15 mg x x x 1 Previous Parkinson's Medications: None Allergies: ALLERGIES Allergen Reactions Neosporin [Neomycin* Current Medications: Current Outpatient Medications Medication Sig furosemide (LASIX) 40 mg tablet Take 1 tablet by mouth three times a day. carbidopa-levodopa (SINEMET 25-100) 25-100 mg per tablet Take 1.5 tablets of immediate release levodopa/carbidopa 25/100 mg at 6 AM, 10 AM, 2 PM, and 6 PM carbidopa-levodopa CR (SINEMET CR) 50-200 mg per tablet Take 1 tablet of controlled release levodopa/carbidopa 50/200 mg at 6 AM, 10 AM, 2 PM, and 6 PM levodopa (INBRIJA) 42 mg Inhale 2 capsules as instructed five times daily. clonazePAM (KLONOPIN) 0.5 mg tablet Take by mouth. donepezil (ARICEPT) 5 mg tablet TAKE 1 TABLET BY MOUTH EVERY MORNING FOR THE FIRST MONTH ELIQUIS 5 mg tab(s) Take 5 mg by mouth twice daily. vit C/E/Zn/coppr/lutein/zeaxan (PRESERVISION AREDS-2 ORAL) Take by mouth. levothyroxine (SYNTHROID) 100 mcg tablet 1.5 tab on Mondays, one other 6 days. allopurinol (ZYLOPRIM) 300 mg tablet Take 1 tablet by mouth once daily. atorvastatin 20 mg tablet Take 20 mg by mouth once daily. Cholecalciferol, Vitamin D3, 25 mcg (1,000 unit) cap Take 1,000 Units by mouth once daily. cyanocobalamin(VITAMIN B-12 500 MCG TAB) Take one(1) tablet daily. No current facility-administered medications for this visit. Objective: Vital Signs: BP 120/59 Pulse 82 Temp 36.2 ?C (97.1 ?F) Wt 62.6 kg (138 lb) SpO2 97% BMI 20.98 kg/m? General Medical Examination: General Description of Patient: Well appearing, comfortable and Thin Head:normocephalic, atraumatic Neck:No bruits, full range of movement, supple Cardiac: Regular rate and rhythm, no murmur Extremities: Muscle atrophy of thighs is noted and No leg edema, pulses intact, no rash or venous stasis changes. Neurological Exam Mental Status Awake and alert. Recent and remote memory are intact. Speech is normal. Language is fluent with no aphasia. Attention and concentration are normal. Fund of knowledge is appropriate for level of education. Cranial Nerves CN II to XII reported as normal . Motor No fasciculations present. Strength is 5/5 throughout all four extremities. No focal weakness appreciated on examination. Sensory There is no evidence for a stocking-glove gradient in bilateral extremities. Dual simultaneous stimulation is intact. Reflexes Right pathological reflexes: Kailash's absent. Left pathological reflexes: Kailash's absent. Coordination Right: Zrllsm-vv-pezb normal. Rapid alternating movement normal.Left: Tqrpaw-uh-eoep normal. Rapid alternating movement normal. Gait Casual gait: Narrow stance. Reduced stride length. Freezing and shuffling gait. Reduced right arm swing. Reduced left arm swing. The patient did not require assistive devices to ambulate. Parkinson's Scales Performed: MDS-UPDRS Motor subscale condition of exam Medication Off/On/Naiive ON Time of UPDRS Time of Last Medication Last Medication Taken DBS Right N/A DBS Left N/A MDS-UPDRS Motor subscale scores Speech 2-Mild. Loss of modulation, diction, or volume, with a few words unclear, but the overall sentences easy to follow. Facial Expression 2-Mild. In addition to decreased eye-blink frequency, Masked facies present in the lower face as well, namely fewer movements around the mouth, such as less spontaneous smiling, but lips not parted. Rigidity Neck 2-Mild. Rigidity detected without the activation maneuver, but full range of motion is easily achieved. Rigidit (more content not included)... Normal [facility] Comprehensive metabolic 2000 panelon 05-05-2023 Albumin [Mass/Vol] 4.3 g/dL Normal 3.9-4.9 [facility] Comment on above: Order Comment: Daria taylor Type: BLOOD SPECIMEN Ordering Facility: [facility] Address: [address] [place] [address] Performed By: #### 2 157-6, 33273-9, #### [facility] CLIA [id number] [address] [place] [address] [place] ALP [Catalytic activity/Vol] 93 U/L Normal 38-113 [facility] Comment on above: Order Comment: Maryi claudia Type: BLOOD SPECIMEN Ordering Facility: [facility] Address: [address] [place] [address] Performed By: #### 2 157-6, 30307-7, #### [facility] CLIA [id number] [address] [place] [address] [place] ALT [Catalytic activity/Vol] U/L Low 10-54 [facility] Comment on above: Order Comment: Maryi men Type: BLOOD SPECIMEN Ordering Facility: [facility] Address: [address] [place] [address] Performed By: #### 2 157-6, 63103-3, 87561-9 #### [facility] CLIA [id number] [address] [place] [address] [place] Anion gap [Moles/Vol] 11 mmol/L Normal 9-18 [facility] Comment on above: Order Comment: Speci men Type: BLOOD SPECIMEN Ordering Facility: [facility] Address: [address] [place] [id number] Performed By: #### 2 157-6, 43977-5, #### [facility] CLIA [id number] [address] [place] [address] [place] AST [Catalytic activity/Vol] 20 U/L Normal 14-40 [facility] Comment on above: Order Comment: Speci men Type: BLOOD SPECIMEN Ordering Facility: [facility] Address: [address] [place] [address] Performed By: #### 2 157-6, 11285-1, #### [facility] CLIA [id number] [address] [place] [address] [place] Bilirubin [Mass/Vol] 0.5 mg/dL Normal 0.2-1.3 [facility] Comment on above: Order Comment: Speci men Type: BLOOD SPECIMEN Ordering Facility: [facility] Address: [address] [place] [address] Performed By: #### 2 157-6, 65622-4, #### [facility] CLIA [id number] [address] [place] [address] [place] Calcium [Mass/Vol] 9.6 mg/dL Normal 8.5-10.2 [facility] Comment on above: Order Comment: Speci men Type: BLOOD SPECIMEN Ordering Facility: [facility] Address: [address] [place] [address] Performed By: #### 2 157-6, 29050-3, #### [facility] CLIA [id number] [address] [place] [address] [place] Chloride [Moles/Vol] 99 mmol/L Normal 97-105 [facility] Comment on above: Order Comment: Speci men Type: BLOOD SPECIMEN Ordering Facility: [facility] Address: [address] [place] [id number] Performed By: #### 2 157-6, 67239-9, 53199-1 #### [facility] CLIA [id number] [address] [place] [address] [place] CO2 [Moles/Vol] 29 mmol/L Normal 22-30 [facility] Comment on above: Order Comment: Speci men Type: BLOOD SPECIMEN Ordering Facility: [facility] Address: [address] [place] [address] Performed By: #### 2 157-6, 35982-7, #### [facility] CLIA [id number] [address] [place] [address] [place] Creatinine [Mass/Vol] 1.13 mg/dL Normal 0.73-1.22 [facility] Comment on above: Order Comment: Speci men Type: BLOOD SPECIMEN Ordering Facility: [facility] Address: [address] [place] [address] Performed By: #### 2 157-6, 07879-9, #### [facility] CLIA [id number] [address] [place], [place] [id number] [place] [address] [place] Creatinine and Glomerular filtration rate.predicted panel (S/P/Bld) 64 mL/min/1.73m??? Normal >=60 [facility] Comment on above: Order Comment: Speci men Type: BLOOD SPECIMEN Ordering Facility: [facility] Address: [address] [place] [address] Result Comment: Clotilde mated Glomerular Filtration Rate (eGFR) is calculated using the 2020 CKD-EPI creatinine equation. This equation utilizes serum creatinine, sex, and age as parameters. The creatinine assay has traceable calibration to isotope dilution-mass spectrometry. Refer to KDIGO guidelines for clinical interpretation. In patients with unstable renal function, e.g. those with acute kidney injury, the eGFR may not accurately reflect actual GFR. Performed By: #### 2 157-6, 86454-3, 35543-7 #### [facility] CLIA [id number] [address] [place] [address] [place] Glucose [Mass/Vol] 88 mg/dL Normal 74-99 [facility] Comment on above: Order Comment: Daria taylor Type: BLOOD SPECIMEN Ordering Facility: [facility] Address: [address] [place] [address] Result Comment: The [place] Diabetes Association (ADA) provides guidance for cutoff values for fasting glucose and random glucose. The ADA defines fasting as no caloric intake for at least 8 hours. Fasting plasma glucose results between 100 to 125 mg/dL indicate increased risk for diabetes (prediabetes). Fasting plasma glucose results greater than or equal to 126 mg/dL meet the criteria for diagnosis of diabetes. In the absence of unequivocal hyperglycemia, results should be confirmed by repeat testing. In a patient with classic symptoms of hyperglycemia or hyperglycemic crisis, random plasma glucose results greater than or equal to 200 mg/dL meet the criteria for diagnosis of diabetes. Reference: Standards of Medical Care in Diabetes 2016, [place] Diabetes Association. Diabetes Care. 2016.39(Suppl 1). Performed By: #### 2 157-6, 90573-8, #### [facility] CLIA [id number] [address] [place] [address] [place] Potassium [Moles/Vol] 4.1 mmol/L Normal 3.7-5.1 [facility] Comment on above: Order Comment: Daria taylor Type: BLOOD SPECIMEN Ordering Facility: [facility] Address: [place] [address] Performed By: #### 2 157-6, 77564-8, #### [facility] CLIA [id number] [address] [place] [address] [place] Protein [Mass/Vol] 6.9 g/dL Normal 6.3-8.0 [facility] Comment on above: Order Comment: Daria taylor Type: BLOOD SPECIMEN Ordering Facility: [facility] Address: [address] [place] [address] Performed By: #### 2 157-6, 56140-5, #### [facility] CLIA [id number] [address] [place] [address] [place] Sodium [Moles/Vol] 139 mmol/L Normal 136-144 [facility] Comment on above: Order Comment: Speci men Type: BLOOD SPECIMEN Ordering Facility: [facility] Address: [address] [place] [address] Performed By: #### 2 157-6, 23102-5, #### [facility] CLIA [id number] [address] [place] [address] [place] Urea nitrogen [Mass/Vol] 35 mg/dL High 9-24 [facility] Comment on above: Order Comment: Speci men Type: BLOOD SPECIMEN Ordering Facility: [facility] Address: [address] [place] [address] Performed By: #### 2 157-6, , #### [facility] CLIA [id number] [address] [place] [address] [place] Albumin [Mass/Vol] 4.3 g/dL 3.9 - 4.9 g/dL [facility] ALP [Catalytic activity/Vol] 93 U/L 38 - 113 U/L [facility] ALT [Catalytic activity/Vol] Low 10 - 54 U/L [facility] Anion gap [Moles/Vol] 11 mmol/L 9 - 18 mmol/L [facility] AST [Catalytic activity/Vol] 20 U/L 14 - 40 U/L [facility] Bilirubin [Mass/Vol] 0.5 mg/dL 0.2 - 1 .3 mg/dL [facility] Calcium [Mass/Vol] 9.6 mg/dL 8.5 - 10. 2 mg/dL [facility] Chloride [Moles/Vol] 99 mmol/L 97 - 10 5 mmol/L [facility] CO2 [Moles/Vol] 29 mmol/L 22 - 30 mmol/L [facility] Creatinine [Mass/Vol] 1.13 mg/dL 0.73 - 1.22 mg/dL [facility] Estimated Glomerular Filtration Rate 64 mL/min/1.73m >=60 mL/min/1.7 3m [facility] Glucose [Mass/Vol] 88 mg/dL 74 - 99 mg/dL [facility] Potassium [Moles/Vol] 4.1 mmol/L 3.7 - 5.1 mmol/L [facility] Protein [Mass/Vol] 6.9 g/dL 6.3 - 8.0 g/dL [facility] Sodium [Moles/Vol] 139 mmol/L 136 - 144 mmol/L [facility] Urea nitrogen [Mass/Vol] 35 mg/dL High 9 - 24 mg/dL [facility] ESR Westergren method (Bld) [Velocity]on 05-05-2023 ESR (Bld) [Velocity] 5 mm/h 0 - 15 mm/hr [facility] ESR (Bld) [Velocity] 5 mm/h Normal 0-15 [facility] Comment on above: Order Comment: Speci men Type: BLOOD SPECIMEN Ordering Facility: [facility] Address: [place] [address] Performed By: #### 4 537-7 #### [facility] CLIA [id number] [address] [facility] [address] [id number] [address] [place] MAGNESIUM BLDon 05-05-2023 Magnesium [Mass/Vol] 2.4 mg/dL High 1.7 - 2 .3 mg/dL [facility] Magnesium SerPl-mCncon 05-05 Magnesium [Mass/Vol] 2.4 mg/dL High 1.7-2.3 [facility] Comment on above: Order Comment: Speci men Type: BLOOD SPECIMEN Ordering Facility: [facility] Address: [place] [address] Performed By: #### 2 157-6, 69104-7, 93811-0 #### [facility] CLIA [id number] [address] [facility] [place] [address] [place] PYRUVATE+LACTATE BLon 2022 Lactate [Moles/Vol] 1.2 mmol/L 0.5 - 2. 2 mmol/L [facility] Pyruvate (Bld) [Moles/Vol] 0.02 mmol/L Low 0.03 - 0.10 mmol/L [facility] Lactate [Moles/Vol] 1.2 mmol/L Normal 0.5-2.2 [facility] Comment on above: Order Comment: Speci men Type: BLOOD SPECIMEN Ordering Facility: [facility] Address: [place] [address] Result Comment: This test was developed and its performance characteristics determined by [facility] [place] (-[facility]). It has not been cleared or approved by the FDA. [facility] is regulated under CLIA as qualified to perform high-complexity testing. This test is used for clinical purposes. It should not be regarded as investigational or for research. Performed By: #### L ACPYR #### [facility] CLIA [id number] [address] [place] [address] [place] Pyruvate (Bld) [Moles/Vol] 0.02 mmol/L Low 0.03-0.10 [facility] Comment on above: Order Comment: Speci men Type: BLOOD SPECIMEN Ordering Facility: [facility] Address: [address] [place] [address] Result Comment: This test was developed and its performance characteristics determined by [facility] [place] ([facility]). It has not been cleared or approved by the FDA. [facility] is regulated under CLIA as qualified to perform high-complexity testing. This test is used for clinical purposes. It should not be regarded as investigational or for research. Performed By: #### L ACPYR #### [facility] CLIA [id number] [address] [place] [address] [place] Ambulatory Visit Summaryon 0 03-20-2023 Ambulatory Visit Summary MAGDALENO VALDERRAMA :1940 Visit Date:03/20/2023 Ambulatory Visit Instructions Your Diagnosis BMI 29.0-29.9,adult Former smoker Constipation in male Your Care Team Attending Physician - Christo Saab MD Primary Care Physician - Christo Saab MD This Is Your Medications List apixaban (Eliquis 5 mg oral tablet) atorvastatin (atorvastatin 20 mg Tab) carbidopa-levodopa (carbidopa-levodopa 25 mg-100 mg Tab) carbidopa-levodopa (carbidopa-levodopa 50 mg-200 mg ER Tab) cholecalciferol (Vitamin D3) clonazepam (ClonazePAM 0.5 mg Tab) cyanocobalamin (Vitamin B12) donepezil (donepezil 10 mg Tab) furosemide (furosemide 40 mg Tab) levothyroxine (levothyroxine 100 mcg (0.1 mg) Tab) melatonin (Melatonin 5 mg oral tablet) melatonin (melatonin 10 mg oral tablet) rasagiline (rasagiline 1 mg oral tablet) spironolactone (spironolactone 25 mg Tab) Procedures Performed Cardiac pacemaker (Week of 09/25/2022), Cystoscopy (05/24/2013), External beam radiotherapy (03/2011), Transrectal biopsy of prostate using ultrasound (US) guidance (12/31/2010), Biopsy of skin, Esophagoduodenostomy. Discharge Vitals Heart Rate (Peripheral) 68 Respiratory Rate 18 Blood Pressure 118/62 Height 172.2 cm Height 68 in Weight 65.0 kg Weight 143 lb BMI 21.92 What to do next Scheduled Follow-Up Appointments Monday 10:00 AM EDT With: Reyna MEJIA, Christo Alas Where: [facility] [place] [facility] ED Note-Physicianon 03-20-20 ED Note-Physician [id number]:[address] [facility] Family Medicine Office/Clini c Noteon 03-20-2023 Family Medicine Office/Clinic Note HPI Staff Magdaleno is a 82 year old male presenting with Constipation complaints of: Constipation (Requested [facility] ER report 03/20/23 went due to back pain) Onset: 6-8 months Characteristics: pt did have a bowel movement today but c/o being hard sm amounts. OTC tried: home remedy from Dr Zuñiga Questions/Concerns: Constipation issues with hard stool needs refill on Clonazepam History of Present Illness - Here for Er follow up. No issues today except for the constipation. - Pt states he is using a natural laxative which is helping. - Improving. Review of Systems PHQ Score Initial Depression Screen Score: 0 Physical Exam Vitals & Measurements HR: 68(Peripheral) RR: 18 BP: 118/62 SpO2: 99% HT: 68 in HT: 172.2 cm WT: 65.0 kg WT: 143 lb BMI: 21.92 General: alert, no acute distress ENMT: oral mucosa moist, Cardiovascular: regular rate and rhythm, normal peripheral perfusion Respiratory: Lungs CTA, respirations non labored Extremities: no deformity, no trauma Neurological: oriented x 4, LOC appropriate for age, CN II-XII intact, motor strength equal & normal bilaterally, speech normal Abdomen: Soft, Nontender, Non-distended, + BS Assessment/Plan 1. Constipation in male (K59.00: Constipation, unspecified) - Improving, Continue on meds as before - Add in some miralax and mollasses 2. Primary insomnia (F51.01: Primary insomnia) - Will refill meds when needed - Reviewed oarrs. 3. BMI 29.0-29.9,adult (Z68.29: Body mass index [BMI] 29.0-29.9, adult) - BMI education given. 4. Former smoker (Z87.891: Personal history of nicotine dependence) - Please continue not to smoke. 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 Atrial premature beats BPH with urinary obstruction Cognitive dysfunction Constipation in male Gout History of colon cancer History of prostate cancer History of skin cancer Hypercholesterolemia Hypothyroidism Maxillary sinusitis, chronic Orthostatic hypotension BINA (obstructive sleep apnea) Parkinson's disease Persistent atrial fibrillation Primary insomnia Raynaud's disease Spondylosis Vitamin D deficiency Weight loss, unintentional Historical Elevated PSA Procedure/Surgical History Cardiac pacemaker (Week of 09/25/2022), Cystoscopy (05/24/2013), External beam radiotherapy (03/2011), Transrectal biopsy of prostate using ultrasound (US) guidance (12/31/2010), Biopsy of skin, Esophagoduodenostomy. Medications atorvastatin 20 mg Tab, 20 mg= 1 tab(s), Oral, Daily carbidopa-levodopa 25 mg-100 mg Tab, 1 tab(s), Oral, QID carbidopa-levodopa 50 mg-200 mg ER Tab, 1 tab(s), Oral, QID ClonazePAM 0.5 mg Tab, 0.5 mg= 1 tab(s), Oral, Once a day (at bedtime), 1 refills donepezil 10 mg Tab, 10 mg= 1 tab(s), Oral, Daily Eliquis 5 mg oral tablet, 5 mg= 1 tab(s), Oral, BID furosemide 40 mg Tab, 40 mg= 1 tab(s), Oral, Daily levothyroxine 100 mcg (0.1 mg) Tab, 100 mcg= 1 tab(s), Oral, Daily melatonin 10 mg oral tablet, 10 mg= 1 tab(s), Oral, Once a day (at bedtime), PRN Melatonin 5 mg oral tablet, 5 mg= 1 tab(s), Oral, Once a day (at bedtime), PRN rasagiline 1 mg oral tablet, Oral, Daily spironolactone 25 mg Tab, 25 mg= 1 tab(s), Oral, Daily Vitamin B12 Vitamin D3 Allergies Neosporin (Unknown) Social History Alcohol - Low Risk, 05/04/2021 Substance Abuse - No Risk, 05/04/2021 Tobacco - No Risk, 05/04/2021 Former smoker, quit more than 30 days ago Tobacco Use:. Cigarettes, Household tobacco concerns: No., 03/20/2023 Family History Diabetes mellitus type 2: Mother. Primary malignant neoplasm of prostate: Father. Primary malignant neoplasm of skin: Mother. Immunizations Vaccine Date Status Comments SARS-CoV-2 (COVID-19) [id number].[id number] 07/13/2022 Recorded 2022-10-07: TPV80 influenza virus vaccine, inactivated 05/04/2022 Recorded SARS-CoV-2 (COVID-19) mRNA-1273 vaccine 07/20/2021 Recorded 2022-10-07: TPV80 SARS-CoV-2 (COVID-19) mRNA-1273 vaccine 09/25/2020 Recorded SARS-CoV-2 (COVID-19) mRNA-1273 vaccine 08/28/2020 Recorded influenza virus vaccine, inactivated 05/27/2020 Recorded pneumococcal 23-valent vaccine 06/12/2019 Recorded influenza virus vaccine, inactivated 06/12/2019 Recorded influenza virus vaccine, inactivated 06/04/2018 Recorded pneumococcal 13-valent vaccine 07/03/2017 Recorded influenza virus vaccine, inactivated 07/03/2017 Recorded influenza virus vaccine, inactivated 05/24/2013 Recorded influenza, whole 05/16/[address] [facility] Comment on above: Result Comment: Elec tronically Signed By: Reyna MEJIA, Christo Elambr\Date and Time Signed: 03/20/23 15:07 EDT Patient Educationon 03-20-20 Patient Education Nutrition BMI for Adults What is BMI? Body mass index (BMI) is a number that is calculated from a person's weight and height. BMI can help estimate how much of a person's weight is composed of fat. BMI does not measure body fat directly. Rather, it is an alternative to procedures that directly measure body fat, which can be difficult and expensive. BMI can help identify people who may be at higher risk for certain medical problems. What are BMI measurements used for? BMI is used as a screening tool to identify possible weight problems. It helps determine whether a person is obese, overweight, a healthy weight, or underweight. BMI is useful for: ? Identifying a weight problem that may be related to a medical condition or may increase the risk for medical problems. ? Promoting changes, such as changes in diet and exercise, to help reach a healthy weight. BMI screening can be repeated to see if these changes are working. How is BMI calculated? BMI involves measuring your weight in relation to your height. Both height and weight are measured, and the BMI is calculated from those numbers. This can be done either in [place] ([place] or metric measurements. Note that charts and online BMI calculators are available to help you find your BMI quickly and easily without having to do these calculations yourself. To calculate your BMI in [place] ([place] measurements: 1. Measure your weight in pounds (lb). 2. Multiply the number of pounds by 703. ? For example, for a person who weighs 180 lb, multiply that number by 703, which equals 126,540. 3. Measure your height in inches. Then multiply that number by itself to get a measurement called inches squared. ? For example, for a person who is 70 inches tall, the inches squared measurement is 70 inches x 70 inches, which equals 4,900 inches squared. 4. Divide the total from step 2 (number of lb x 703) by the total from step 3 (inches squared): 126,540 ? 4,900 = 25.8. This is your BMI. To calculate your BMI in metric measurements: 1. Measure your weight in kilograms (kg). 2. Measure your height in meters (m). Then multiply that number by itself to get a measurement called meters squared. ? For example, for a person who is 1.75 m tall, the meters squared measurement is 1.75 m x 1.75 m, which is equal to 3.1 meters squared. 3. Divide the number of kilograms (your weight) by the meters squared number. In this example: 70 ? 3.1 = 22.6. This is your BMI. What do the results mean? BMI charts are used to identify whether you are underweight, normal weight, overweight, or obese. The following guidelines will be used: ? Underweight: BMI less than 18.5. ? Normal weight: BMI between 18.5 and 24.9. ? Overweight: BMI between 25 and 29.9. ? Obese: BMI of 30 or above. Keep these notes in mind: ? Weight includes both fat and muscle, so someone with a muscular build, such as an athlete, may have a BMI that is higher than 24.9. In cases like these, BMI is not an accurate measure of body fat. ? To determine if excess body fat is the cause of a BMI of 25 or higher, further assessments may need to be done by a health care provider. ? BMI is usually interpreted in the same way for men and women. Where to find more information For more information about BMI, including tools to quickly calculate your BMI, go to these websites: ? Centers for Disease Control and Prevention: www.cdc.gov ? [place] Heart Association: www.heart.org ? National Heart, Lung, and Blood [place]: www.nhlbi.nih.gov Summary ? Body mass index (BMI) is a number that is calculated from a person's weight and height. ? BMI may help estimate how much of a person's weight is composed of fat. BMI can help identify those who may be at higher risk for certain medical problems. ? BMI can be measured using [place] measurements or metric measurements. ? BMI charts are used to identify whether you are underweight, normal weight, overweight, or obese. This information is not intended to replace advice given to you by your health care provider. Make sure you discuss any questions you have with your health care provider. Document Revised: 04/08/2020 Document Reviewed: 02/14/2020 [employer] Patient Education ? 2022 [email or web address] [facility] RAD - CT Reporton 03-15-2023 RAD - CT Report [id number]#[id number]:[address] [facility] RAD - MISCon 03-14-2023 RAD - MIS [id number]#[id number]:[address] [facility] Ambulatory Visit Summaryon 0 02-20-2023 Ambulatory Visit Summary MAGDALENO VALDERRAMA :1940 Visit Date:02/20/2023 Ambulatory Visit Instructions Your Diagnosis Atrial premature beats Hypothyroidism, unspecified type BINA (obstructive sleep apnea) BMI 21.0-21.9, adult Non-smoker Your Care Team Attending Physician - Christo Saab MD Primary Care Physician - Christo Saab MD This Is Your Medications List apixaban (Eliquis 5 mg oral tablet) atorvastatin (atorvastatin 20 mg Tab) carbidopa-levodopa (carbidopa-levodopa 25 mg-100 mg Tab) carbidopa-levodopa (carbidopa-levodopa 50 mg-200 mg ER Tab) cholecalciferol (Vitamin D3) clonazepam (ClonazePAM 0.5 mg Tab) clonazepam (ClonazePAM 0.5 mg Tab) cyanocobalamin (Vitamin B12) donepezil (donepezil 10 mg Tab) furosemide (furosemide 40 mg Tab) levothyroxine (levothyroxine 100 mcg (0.1 mg) Tab) melatonin (Melatonin 5 mg oral tablet) melatonin (melatonin 10 mg oral tablet) rasagiline (rasagiline 1 mg oral tablet) spironolactone (spironolactone 25 mg Tab) Procedures Performed Cardiac pacemaker (Week of 09/25/2022), Cystoscopy (05/24/2013), External beam radiotherapy (03/2011), Transrectal biopsy of prostate using ultrasound (US) guidance (12/31/2010), Biopsy of skin, Esophagoduodenostomy. Discharge Vitals Heart Rate (Peripheral) 76 Respiratory Rate 18 Blood Pressure 128/86 Height 172.2 cm Height 68 in Weight 63.55 kg Weight 139.81 lb BMI 21.43 What to do next Scheduled Follow-Up Appointments Monday 10:00 AM EDT With: Christo Saab MD Where: [facility] Cardiovascular Reporton 01-29 Cardiovascular Report [id number]:[address] [facility] ECG 12-Leadon 02-20-2023 ECG 12-Lead [id number]:[address] [facility] Family Medicine Office/Clini c Noteon 02-20-2023 Family Medicine Office/Clinic Note HPI Staff patient presents for 2 month follow up a fib and due for thyroid labs currently on Eliquis Patient is here for follow up on Thyroid Disease. Do you have any of the following symptoms? Change in energy level? no Weight change? no Heat/cold intolerance? heat Hair/skin/nail changes? no Change in bowels? no Last TSH: due Questions/Concerns: pt would like to know he is still on Lasix History of Present Illness Magdaleno Valderrama is an 82-year-old male who presents today for a follow-up evaluation. He is accompanied by an adult male. The patient was prescribed Lasix once a day by the emergency room. He has seen a top carrier, Dr. Cesar, who advised him that he is not in atrial fibrillation. He would like a refill of his Lasix. He is experiencing fatigue due to urinary frequency every 2 to 3 hours. He usually takes his Lasix at 6:00 AM. He usually drinks a lot of water in the evenings, but he does not anymore recently. He has decreased his water intake at 8:00 PM for the last 1.5 to 2 months. He needs a refill on his clonazepam. Review of Systems PHQ Score Initial Depression Screen Score: 0 Physical Exam Vitals & Measurements HR: 76(Peripheral) RR: 18 BP: 128/86 SpO2: 96% HT: 68 in HT: 172.2 cm WT: 63.55 kg WT: 139.81 lb BMI: 21.43 General: alert, no acute distress Cardiovascular: irregular rhythm, normal peripheral perfusion Respiratory: Lungs CTA, respirations non labored Extremities: no deformity, no trauma Neurological: oriented x 4, LOC appropriate for age, CN II-XII intact, motor strength equal & normal bilaterally, speech normal Assessment/Plan 1. Atrial premature beats (I49.1: Atrial premature depolarization) Per EKG given to me by [facility], the patient has premature atrial beats; however, there seems to be a lot of these. The patient has no symptoms at this time. The patient is continuing to be on Eliquis. At this time, I had requested that the patient discuss this with his top carrier, so we know exactly what medication he should be on and by whom. Last checked, the patient was prescribed Eliquis by Dr. Cesar along with his Lasix and spironolactone. 2. Hypothyroidism, unspecified type (E03.9: Hypothyroidism, unspecified) We will go ahead and order his thyroid level today. We will recheck at his next visit. 3. BINA (obstructive sleep apnea) (G47.33: Obstructive sleep apnea (adult) (pediatric)) Please continue to use your CPAP machine at your home settings. 4. BMI 21.0-21.9, adult (Z68.21: Body mass index [BMI] 21.0-21.9, adult) BMI education given. 5. Non-smoker (Z78.9: Other specified health status) Please continue not to smoke. 6. Primary insomnia (F51.01: Primary insomnia) We will refill his clonazepam today. We will give one refill. Portions of this record may have been created with voice recognition artificial intelligence software, specifically [employer], [employer] and or [employer]. Substitutions may have occurred due to the inherent limitations of voice recognition and artificial intelligence software. ATTESTATION: Documentation services were performed after patient or guardian consented to allow [employer] to record this visit. RASHAUN wildland fire fighter specialist and provider reviewed before signing. RASHAUN: Stephanie Sauceda. 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 Atrial premature beats BPH with urinary obstruction Cognitive dysfunction Constipation in male Gout History of colon cancer History of prostate cancer History of skin cancer Hypercholesterolemia Hypothyroidism Maxillary sinusitis, chronic Orthostatic hypotension BINA (obstructive sleep apnea) Parkinson's disease Persistent atrial fibrillation Primary insomnia Raynaud's disease Spondylosis Vitamin D deficiency Weight loss, unintentional Historical Elevated PSA Procedure/Surgical History Cardiac pacemaker (Week of 09/25/2022), Cystoscopy (05/24/2013), External beam radiotherapy (03/2011), Transrectal biopsy of prostate using ultrasound (US) guidance (12/31/2010), Biopsy of skin, Esophagoduodenostomy. Medications atorvastatin 20 mg Tab, 20 mg= 1 tab(s), Oral, Daily carbidopa-levodopa 25 mg-100 mg Tab, 1 tab(s), Oral, QID carbidopa-levodopa 50 mg-200 mg ER Tab, 1 tab(s), Oral, QID ClonazePAM 0.5 mg Tab, 0.5 mg= 1 tab(s), Oral, Once a day (at bedtime), 1 refills donepezil 10 mg Tab, 10 mg= 1 tab(s), Oral, Daily Eliquis 5 mg oral tablet, 5 mg= 1 tab(s), Oral, BID furosemide 40 mg Tab, 40 mg= 1 tab(s), Oral, Daily levothyroxine 100 mcg (0.1 mg) Tab, 100 mcg= 1 tab(s), Oral, Daily melatonin 10 mg oral tablet, 10 mg= 1 tab(s), Oral, Once a day (at bedtime), PRN Melatonin 5 mg oral tablet, 5 mg= 1 tab(s), Oral, Once a day (at bedtime), PRN rasagiline 1 mg oral tablet, Oral, Daily spironolactone 25 mg (more content not included)... Normal [facility] Comment on above: Result Comment: Elec tronically Signed By: Christo Saab MD\.br\Date and Time Signed: 02/20/23 13:13 EDT\.br\Electronically Co-Signed By: Stephanie Sauceda.br\Date and Time Co-Signed: 02/20/23 11:43 EDT Retail - Clinical Noteon Retail - Clinical Note [id number]:[address] [facility] Physician Referralon 023 Physician Referral [id number]:[address] [facility] Radiologyon 12-29-2022 XR Chest 2 Views Normal -[facility] [address] DO Work Phone: XR chest 2V*on 12-29-2022 XR chest 2V* [facility] [address] [address] XRay Report Signed Patient: Magdaleno Valderrama MR#: [id number] : 1940 Acct:[id number] Age/Sex: 82 / M ADM Date: 12/29/22 Loc: [facility] Room: Type: [facility] Attending Dr: Roel Mireles MD Copies to: Roel Mireles MD Ordering Provider: Roel Mireles MD Date of Service: 12/29/22 XR/XR chest 2V*: I44.2,Z95.0 Chest 2 views CLINICAL HISTORY: Pacemaker check COMPARISON: Chest 09/27/2022 FINDINGS: Dual lead pacemaker device in place without radiographic application. Heart is normal in size. Lungs are clear. No free air. XR/XR chest 2V* IMPRESSION: NO EVIDENCE OF PACEMAKER COMPLICATION. Impression dictated by: Jean-Pierre Carr Jr., D.O.12/29/2022 1:38 PM Dictation Location: [place] [address] Transcribed By: [facility] 12/29/221337 Dictated By: Jean-Pierre Carr Jr, DO 12/29/221336 Signed By: 12/29/22 1338 [facility] 12-27-2022 Forms [id number]:127 [facility] Family Medicine Office/Clini c Noteon 12-20-2022 Family Medicine Office/Clinic Note Chief Complaint follow up after heart doctor HPI Staff Present with his son today for follow up after seeing the heart doctor questions/concerns: saw Heart last monday put him back into rhythm needs release to return to therapy for parkinson's patient and his son both feel he's doing better. History of Present Illness Magdaleno Valderrama is an 82-year-old male who presents today for a follow-up after his cardioversion His son states that he had a cardioversion done and a pacemaker placed by Dr. Cesar. He was previously placed on Eliquis and denies any issues with bleeding. He is not currently taking Plavix or aspirin. He has a follow-up appointment with Dr. Cesar on 01/10/2023. The patient and his son report that they were not told about the risks and benefits of a cardioversion. He reports that he is feeling better since he was last seen. His sleeping has improved with the clonazepam. He is still frequently waking up to urinate. The patient states his Parkinson's disease is not bad . He has a follow-up appointment with DAVID on 02/09/2023. Review of Systems PHQ Score Initial Depression Screen Score: 0 Physical Exam Vitals & Measurements HR: 76(Peripheral) RR: 16 BP: 130/66 SpO2: 98% HT: 68 in HT: 172.2 cm WT: 64.15 kg WT: 141.13 lb BMI: 21.63 General: alert, no acute distress ENMT: oral mucosa moist, no pharyngeal erythema or exudate Cardiovascular: The first part of the exam the patient was in a A. fib, but by the end of it the patient was having a few PVCs, but was mostly in normal sinus rhythm. Respiratory: Lungs CTA, respirations non labored Extremities: no deformity, no trauma Neurological: oriented x 4, LOC appropriate for age, CN II-XII intact, motor strength equal & normal bilaterally, speech normal. Narciso motion of his head. Skin: Bruising noted diffusely. Assessment/Plan We will follow up in 2 months. Total time spent preparing for the encounter, evaluating and assessing the patient, documenting the visit, and ordering appropriate follow-up work was 45 minutes. 1. 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 Patient has been off the aspirin as he was having the bleeding. We will continue to monitor. 2. Hypercholesterolemia (E78.00: Pure hypercholesterolemia, unspecified) Patient is on Lipitor 20 mg, continue on that. We will recheck labs at his next visit. 3. Hypothyroid (E03.9: Hypothyroidism, unspecified) Patient is on levothyroxine, but has not had his thyroid checked. We will do this at the next visit. 4. Vitamin D deficiency (E55.9: Vitamin D deficiency, unspecified) Patient is on vitamin D supplementation, but again we have not checked that since he has been in our system. We will do this at our next visit. 5. Insomnia (G47.00: Insomnia, unspecified) Patient is taking the clonazepam, not having any issues with it, doing well for his sleep. We will refill today. 6. BMI 21.0-21.9, adult (Z68.21: Body mass index [BMI] 21.0-21.9, adult) BMI education given. 7. Afib (I48.91: Unspecified atrial fibrillation) Despite the conversion the patient was in atrial fibrillation today. At this time, patient will need to follow up with cardiology. If they did not discuss in detail about how he could go back out of atrial fibrillation the patient should find a second opinion. Patient is agreeable to this and will look for other options. ATTESTATION: Documentation services were performed after patient or guardian consented to allow [employer] to record this visit. RASHAUN wildland fire fighter specialist and provider reviewed before signing. 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 Cognitive dysfunction Constipation in male Gout History of colon cancer History of prostate cancer History of skin cancer Hypercholesterolemia Hypothyroid Insomnia Maxillary sinusitis, chronic Orthostatic hypotension BINA (obstructive sleep apnea) Parkinson's disease Raynaud's disease Spondylosis Vitamin D deficiency Weight loss, unintentional Historical Elevated PSA Procedure/Surgical History Cardiac pacemaker (Week of 09/25/2022), Cystoscopy (05/24/2013), External beam radiotherapy (03/2011), Transrectal biopsy of prostate using ultrasound (US) guidance (12/31/2010), Biopsy of skin, Esophagoduodenostomy. Medications atorvastatin 20 mg Tab, 20 mg= 1 tab(s), Oral, Daily carbidopa-levodopa 25 mg-100 mg ER Tab, 1 tab(s), Oral, BID ClonazePAM 0.5 mg Tab, 0.5 mg= 1 tab(s), Oral, Once a day (at bedtime) levothyroxine 100 mcg (0.1 mg) Tab, 100 mcg= 1 tab(s), Oral, Daily, 3 refills rasagiline 1 mg oral tablet, (more content not included)... 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 Hypercholesterolemia Hypothyroid Vitamin D deficiency Insomnia BMI 21.0-21.9, adult Afib Your Care Team Attending Physician - Christo Saab MD Primary Care Physician - Christo Saab MD This Is Your Medications List clonazepam (ClonazePAM 0.5 mg Tab) Contact prescribing physician if questions or concerns atorvastatin (atorvastatin 20 mg Tab) carbidopa-levodopa (carbidopa-levodopa 25 mg-100 mg ER Tab) cholecalciferol (Vitamin D3) cyanocobalamin (Vitamin B12) levothyroxine (levothyroxine 100 mcg (0.1 mg) Tab) rasagiline (rasagiline 1 mg oral tablet) [Image Removed: STOP]Stop taking these medications aspirin (aspirin 325 mg oral capsule) aspirin (aspirin 81 mg oral tablet) haloperidol (Haldol) Procedures Performed Cardiac pacemaker (Week of 09/25/2022), Cystoscopy (05/24/2013), External beam radiotherapy (03/2011), Transrectal biopsy of prostate using ultrasound (US) guidance (12/31/2010), Biopsy of skin, Esophagoduodenostomy. Discharge Vitals Heart Rate (Peripheral) 76 Respiratory Rate 16 Blood Pressure 130/66 Height 172.2 cm Height 68 in Weight 64.15 kg Weight 141.13 lb BMI 21.63 What to do next Scheduled Follow-Up Appointments Monday 9:20 AM EDT With: Christo Saab MD Where: [facility] Normal 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 Hypercholesterolemia Hypothyroid Vitamin D deficiency Insomnia BMI 21.0-21.9, adult Afib Your Care Team Attending Physician - Christo Saab MD Primary Care Physician - Christo Saab MD This Is Your Medications List clonazepam (ClonazePAM 0.5 mg Tab) Contact prescribing physician if questions or concerns atorvastatin (atorvastatin 20 mg Tab) carbidopa-levodopa (carbidopa-levodopa 25 mg-100 mg ER Tab) cholecalciferol (Vitamin D3) cyanocobalamin (Vitamin B12) levothyroxine (levothyroxine 100 mcg (0.1 mg) Tab) rasagiline (rasagiline 1 mg oral tablet) [Image Removed: STOP]Stop taking these medications aspirin (aspirin 325 mg oral capsule) aspirin (aspirin 81 mg oral tablet) haloperidol (Haldol) Procedures Performed Cardiac pacemaker (Week of 09/25/2022), Cystoscopy (05/24/2013), External beam radiotherapy (03/2011), Transrectal biopsy of prostate using ultrasound (US) guidance (12/31/2010), Biopsy of skin, Esophagoduodenostomy. Discharge Vitals Heart Rate (Peripheral) 76 Respiratory Rate 16 Blood Pressure 130/66 Height 172.2 cm Height 68 in Weight 64.15 kg Weight 141.13 lb BMI 21.63 What to do next Scheduled Follow-Up Appointments Monday 9:20 AM EDT With: Christo Saab MD Where: [facility] Normal [facility] Carbon dioxide, total [Moles /volume] in Serum or PlasmaOrdered By: Edel Cesar on 12-13-2022 CO2 [Moles/Vol] 30.5 mmol/L Normal 21.0-31.0 [facility] Comment on above: Performed By: #### [facility] ####[facility] [id number] [place] [address] [facility] Chloride [Moles/volume] in S siddharth or PlasmaOrdered By: Edel Cesar on 12-13-2022 Chloride [Moles/Vol] 99 mmol/L Normal 98-107 [facility] Comment on above: Performed By: #### [facility] ####[facility] [id number] [place] [id number] [facility] ECG 12 lead ECGon 12-13-2022 ECG 12 lead ECG [facility] [place] [address] Electrocardiograph Report Signed Patient: Magdaleno Valderrama MR#: [id number] : 1940 Acct:[id number] Age/Sex: 82 / M ADM Date: 12/13/22 Loc: PO Room: Type: [facility] Attending Dr: Edel Cesar MD Ordering Provider: Edel Cesar MD Date of Service: 12/13/22 ECG/ECG 12 lead ECG: Pre-cardioversion rhythm assessment Copies to: Test Reason : Blood Pressure : / mmHG Vent. Rate : 070 BPM Atrial Rate : 069 BPM P-R Int : 000 ms QRS Dur : 156 ms QT Int : 452 ms P-R-T Axes : 000 -70 093 degrees QTc Int : 488 ms Ventricular-paced rhythm Abnormal ECG When compared with ECG of 26-SEP-2022 12:52, Electronic ventricular pacemaker has replaced Atrial fibrillation Confirmed by EDEL CESAR MD ([id number]) on 12/13/2022 12:54:53 PM Referred By: Edel Cesar Electronically Signed By:EDEL CESAR MD Transcribed By: MUS Signed By Edel Cesar MD 0 12/13/22 [address] [facility] ECG post procedureon 023 ECG post procedure [facility] [place] [address] Electrocardiograph Report Signed Patient: Magdaleno Valderrama MR#: [id number] : 1940 Acct:[id number] Age/Sex: 82 / M ADM Date: 12/13/22 Loc: PO [facility]: [facility]: Edel Cesar MD Ordering Provider: Edel Cesar MD Date of Service: 12/13/22/ ECG/ECG post procedure: post cardioversion Copies to: Test Reason : Blood Pressure : 137/078 mmHG Vent. Rate : 070 BPM Atrial Rate : 104 BPM P-R Int : 202 ms QRS Dur : 152 ms QT Int : 456 ms P-R-T Axes : 000 -73 092 degrees QTc Int : 492 ms AV dual-paced rhythm Abnormal ECG When compared with ECG of 26-SEP-2022 12:52, No significant change was found Confirmed by EDEL CESAR MD ([id number]) on 12/14/2022 4:41:26 PM Referred By: Edel Cesar Electronically Signed By:EDEL CESAR MD Transcribed By: MUS Signed By Edel Cesar MD 0 12/14/22 [address] [facility] No Panel Informationon 12-13 12.9\S\12.9 Normal 6.0-15.0 [facility] [address] DO Work Phone: Comment on above: PERFORMED BY:[place] [address] [place], [place] [id number] MEDICAL DIRECTORANGELIC RANDOLPH M.D. 30.5\S\30.5 Normal 21.0-31.0 [facility] [address] DO Work Phone: 99\S\99 Normal 98-107 [facility] [address] DO Work Phone: 4.4\S\4.4 Normal 3.5-5.1 [facility] [address] DO Work Phone: 138\S\138 Normal 136-145 [facility] [address] DO Work Phone: Potassium [Moles/volume] in Serum or PlasmaOrdered By: Edel Cesar on 12-13-2022 Potassium [Moles/Vol] 4.4 mmol/L Normal 3.5-5.1 [facility] Comment on above: Performed By: #### L YTES ####[place] [address] Serum or plasma anion gap de terminationOrdered By: Edel Cesar on 12-13-2022 Anion gap [Moles/Vol] 12.9 mmol/L Normal 6.0-15.0 [facility] Comment on above: Result Comment: PERF ORMED BY: [facility] [address] [place] [address] PATHOLOGIST PERCUSSION TEACHER ANGELIC RANDOLPH M.D. Performed By: #### L YTES ####[place] [address] Sodium [Moles/volume] in Ser um or PlasmaOrdered By: Edel Cesar on 12-13-2022 Sodium [Moles/Vol] 138 mmol/L Normal 136-145 [facility] Comment on above: Performed By: #### L YTES ####[place] [address] [place] [id number] [facility] PROF CHEM 8 (BAS METB)on Anion gap [Moles/Vol] 10.5 mmol/L Normal [facility] Comment on above: Performed By: #### B MP #### [facility] [address] [place] [address] [address] Kaylene Montoya Calcium [Mass/Vol] 9.4 mg/dL Normal 8.5-10.1 [facility] Comment on above: Performed By: #### B MP #### [facility] [address] [place] [address] [address] Kaylene Montoya Chloride [Moles/Vol] 104 mmol/L Normal 98-107 [facility] Comment on above: Performed By: #### B MP #### [facility] [address] [place] [address] [address] Kaylene Montoya CO2 [Moles/Vol] 31.7 mmol/L Normal 21.0-32.0 [facility] Comment on above: Performed By: #### B MP #### [facility] [address] [place] [address] [address] Kaylene Montoya Creatinine [Mass/Vol] 1.14 mg/dL Normal 0.70-1.30 [facility] Comment on above: Performed By: #### B MP #### [facility] [address] [place] [address] [address] Kaylene Montoya EGFR-AF CAMBODIAN >60 Normal >=60 [facility] Comment on above: Performed By: #### B MP #### [facility] [address] [place] [address] [address] Kaylene Montoya EGFR-NON AF CAMBODIAN >60 Normal >=60 [facility] Comment on above: Performed By: #### B MP #### [facility] [address] [place] [address] Dr. Kaylene Montoya Glucose [Mass/Vol] 100 mg/dL Normal 74-106 [facility] Comment on above: Performed By: #### B MP #### [facility] [address] [place] [address] Dr. Kaylene Montoya Potassium [Moles/Vol] 4.2 mmol/L Normal 3.5-5.1 [facility] Comment on above: Performed By: #### B MP #### [facility] [address] [place] [address] Dr. Kaylene Montoya Sodium [Moles/Vol] 142 mmol/L Normal 136-145 [facility] Comment on above: Performed By: #### B MP #### [facility] [address] [place] [address] Dr. Kaylene Montoya Urea nitrogen [Mass/Vol] 42.0 mg/dL Critically high 7.0-18.0 [facility] Comment on above: Performed By: #### B MP #### [facility] [address] [place] [address] Dr. Kaylene Montoya Urea nitrogen/Creatinine [Mass ratio] 36.8 mg/mg Normal [facility] Comment on above: Performed By: #### B MP #### [facility] [address] [place] [address] Dr. Kaylene Montoya BNPon 11-28-2022 Natriuretic peptide B (Bld) [Mass/Vol] 2997.0 pg/mL Critically high <=1,800.0 [facility] Comment on above: Performed By: #### P TT, PT #### [facility] [address] [place] [address] Dr. Kaylene Montoya PROF CHEM 8 (BAS METB)on Anion gap [Moles/Vol] 5.6 mmol/L Normal [facility] Comment on above: Performed By: #### P TT, PT #### [facility] [address] [place] [address] Dr. Kaylene Montoya Calcium [Mass/Vol] 9.8 mg/dL Normal 8.5-10.1 [facility] Comment on above: Performed By: #### P TT, PT #### [facility] [address] [place] [address] Dr. Kaylene Montoya Chloride [Moles/Vol] 101 mmol/L Normal 98-107 [facility] Comment on above: Performed By: #### P TT, PT #### [facility] [address] [place] [address] Dr. Kaylene Montoya CO2 [Moles/Vol] 36.3 mmol/L Critically high 21.0-32.0 [facility] Comment on above: Performed By: #### P TT, PT #### [facility] [address] [place] [address] Dr. Kaylene Montoya Creatinine [Mass/Vol] 1.03 mg/dL Normal 0.70-1.30 [facility] Comment on above: Performed By: #### P TT, PT #### [facility] [address] [place] [address] Dr. Kaylene Montoya EGFR-AF CAMBODIAN >60 Normal >=60 [facility] Comment on above: Performed By: #### P TT, PT #### [facility] [address] [place] [address] Dr. Kaylene Montoya EGFR-NON AF CAMBODIAN >60 Normal >=60 [facility] Comment on above: Performed By: #### P TT, PT #### [facility] [address] [place] [address] [address] Kaylene Montoya Glucose [Mass/Vol] 99 mg/dL Normal 74-106 [facility] Comment on above: Performed By: #### P TT, PT #### [facility] [address] [place] [address] [address] Kaylene Montoya Potassium [Moles/Vol] 3.9 mmol/L Normal 3.5-5.1 [facility] Comment on above: Performed By: #### P TT, PT #### [facility] [address] [place] [address] [address] Kaylene Montoya Sodium [Moles/Vol] 139 mmol/L Normal 136-145 [facility] Comment on above: Performed By: #### P TT, PT #### [facility] [address] [place] [address] [address] Kaylene Montoya Urea nitrogen [Mass/Vol] 34.0 mg/dL Critically high 7.0-18.0 [facility] Comment on above: Performed By: #### P TT, PT #### [facility] [address] [place] [address] [address] Kaylene Montoya Urea nitrogen/Creatinine [Mass ratio] 33.0 mg/mg Normal [facility] Comment on above: Performed By: #### P TT, PT #### [facility] [address] [place] [address] [address] Kaylene Montoya Tobacco Screening.on 023 Adult depression screening assessment No [facility] Work Phone: Fall risk assessment b) One or more fall s in the last year [facility] Work Phone: Tobacco use status CPHS b) No [facility] Work Phone: BNPon 11-24-2022 Natriuretic peptide B (Bld) [Mass/Vol] 3182.0 pg/mL Critically high <=1,800.0 [facility] Comment on above: Performed By: #### F T4 #### [facility] [address] [place] [address] Dr. Kaylene Montoya CARDIAC CRISTIAN ADMITon 023 CK [Catalytic activity/Vol] 99 U/L Normal 39-308 [facility] Comment on above: Performed By: #### F T4 #### [facility] [address] [place] [address] Dr. Kaylene Montoya CK.MB [Mass/Vol] 3.52 ng/mL Normal <=3.60 [facility] Comment on above: Performed By: #### F T4 #### [facility] [address] [place] [address] Dr. Kaylene Montoya HSTROP 13.4 pg/mL Normal 4.0-76.1 [facility] Comment on above: Result Comment: CUT- OFF POINTS HAVE BEEN ESTABLISHED BASED ON THE FOURTH UNIVERSAL DEFINITIONS OF MYOCARDIAL INFARCTION. THE UPPER REFERENCE LIMIT (URL) OF TROPONIN, DEFINED THE 99TH PERCENTILE OF cTnI DISTRIBUTION IN A REFERENCE POPULATION, HAS BEEN CONFIRMED THE DECISION THRESHOLD FOR MD DIAGNOSIS. Performed By: #### F T4 #### [facility] [address] [place] [address] Dr. Kaylene Montoya LEOPOLDO 83 ng/mL Normal 16-96 [facility] Comment on above: Performed By: #### F T4 #### [facility] [address] [place] [address] Dr. Kaylene Montoya CBC AUTO DIFFon 11-24-2022 BASO # 0.0 103/ul Normal 0.0-0.1 [facility] Comment on above: Performed By: #### B MP #### [facility] [address] [place] [address] Dr. Kaylene Montoya Basophils/100 WBC (Bld) 0.4 % Normal 0.2-2.0 [facility] Comment on above: Performed By: #### B MP #### [facility] [address] [place] [address] Dr. Kaylene Montoya EO # 0.1 103/ul Normal 0.0-0.7 [facility] Comment on above: Performed By: #### B MP #### [facility] [address] [place], [place] [id number] Dr. Kaylene Montoya Eosinophils/100 WBC (Bld) 1.4 % Normal 0.9-7.0 [facility] Comment on above: Performed By: #### B MP #### [facility] [address] [place] [address] Dr. Kaylene Montoya Erythrocyte distribution width (RBC) [Ratio] 15.8 % Critically high 11.0-15.0 [facility] Comment on above: Performed By: #### B MP #### [facility] [address] [place] [address] Dr. Kaylene Montoya Hematocrit (Bld) [Volume fraction] 40.1 % Critically low 42.0-54.0 [facility] Comment on above: Performed By: #### B MP #### [facility] [address] [place] [address] Dr. Kaylene Montoya Hemoglobin (Bld) [Mass/Vol] 13.0 g/dL Critically low 14.0-18.0 [facility] Comment on above: Performed By: #### B MP #### [facility] [address] [place] [address] Dr. Kaylene Montoya IG # 0.04 10e3/ul Critically high 0.00-0.03 [facility] Comment on above: Performed By: #### B MP #### [facility] [address] [place] [address] Dr. Kaylene Montoya IG % 0.6 % Critically high 0.0-0.5 [facility] Comment on above: Performed By: #### B MP #### [facility] [address] [place] [address] Dr. Kaylene Montoya LYMPH # 1.1 103/ul Critically low 1.2-3.8 [facility] Comment on above: Performed By: #### B MP #### [facility] [address] [place] [address] Dr. Kaylene Montoya Lymphocytes/100 WBC (Bld) 15.5 % Critically low 20.5-60.0 [facility] Comment on above: Performed By: #### B MP #### [facility] [address] [place] [address] Dr. Kaylene Montoya MANUAL DIFF REQ NO Normal [facility] Comment on above: Performed By: #### B MP #### [facility] [address] [place] [address] Dr. Kaylene Montoya MCH (RBC) [Entitic mass] 29.7 pg Normal 25.9-34.0 [facility] Comment on above: Performed By: #### B MP #### [facility] [address] [place] [address] Dr. Kaylene Montoya MCHC (RBC) [Mass/Vol] 32.4 g/dL Normal 29.9-35.2 [facility] Comment on above: Performed By: #### B MP #### [facility] [address] [place] [address] Dr. Kaylene Montoya MCV (RBC) [Entitic vol] 91.6 fL Normal 80.0-94.0 [facility] Comment on above: Performed By: #### B MP #### [facility] [address] [place] [address] Dr. Kaylene Montoya MONO # 0.7 103/ul Normal 0.3-0.8 [facility] Comment on above: Performed By: #### B MP #### [facility] [address] [place] [address] Dr. Kaylene Montoya Monocytes/100 WBC (Bld) 10.4 % Normal 1.7-12.0 [facility] Comment on above: Performed By: #### B MP #### [facility] [address] [place] [address] Dr. Kaylene Montoya NEUT # 5.1 103/ul Normal 1.4-6.5 [facility] Comment on above: Performed By: #### B MP #### [facility] [address] [place] [address] Dr. Kaylene Montoya Neutrophils/100 WBC (Bld) 71.7 % Normal 43.0-75.0 [facility] Comment on above: Performed By: #### B MP #### [facility] [address] [place] [address] Dr. Kaylene Montoya Platelet mean volume (Bld) [Entitic vol] 10.4 fL Normal 9.5-13.5 [facility] Comment on above: Performed By: #### B MP #### [facility] [address] [place] [address] Dr. Kaylene Montoya PLT 155 103/ul Normal 150-450 [facility] Comment on above: Performed By: #### B MP #### [facility] [address] [place] [address] Dr. Kaylene Montoya RBC 4.38 106/ul Critically low 4.70-6.10 [facility] Comment on above: Performed By: #### B MP #### [facility] [address] [place] [address] Dr. Kaylene Montoya WBC 7.1 103/ul Normal 4.0-11.0 [facility] Comment on above: Performed By: #### B MP #### [facility] [address] [place] [address] Dr. Kaylene Montoya ER URINE PROFILEon 3 Bilirubin Ql (U) Negative Normal NEGATIVE [facility] Comment on above: Performed By: #### L ACT #### [facility] [address] [place] [address] Dr. Kaylene Montoya Clarity (U) CLEAR Normal CLEAR [facility] Comment on above: Performed By: #### L ACT #### [facility] [address] [place] [address] Dr. Kaylene Montoya Color (U) YELLOW Normal YELLOW [facility] Comment on above: Performed By: #### L ACT #### [facility] [address] [place] [address] Dr. Kaylene Montoya ERUAHD A micrscopic examina tion will be performed if indicated. Normal [facility] Comment on above: Performed By: #### L ACT #### [facility] [address] [place] [address] Dr. Kaylene Montoya Glucose Ql (U) Negative Normal NEGATIVE [facility] Comment on above: Performed By: #### L ACT #### [facility] [address] [place] [address] Dr. Kaylene Montoya Hemoglobin Ql (U) LARGE Abnormal NEGATIVE [facility] Comment on above: Performed By: #### L ACT #### [facility] [address] [place] [address] Dr. Kaylene Montoya Ketones Ql (U) TRACE Abnormal NEGATIVE [facility] Comment on above: Performed By: #### L ACT #### [facility] [address] [place] [address] Dr. Kaylene Montoya LEUKOCYTES TRACE Abnormal NEGATIVE [facility] Comment on above: Performed By: #### L ACT #### [facility] [address] [place] [address] Dr. Kaylene Montoya Nitrite Ql (U) Negative Normal NEGATIVE [facility] Comment on above: Performed By: #### L ACT #### [facility] [address] [place] [address] Dr. Kaylene Montoya pH (U) 5.5 [pH] Normal 5-9 [facility] Comment on above: Performed By: #### L ACT #### [facility] [address] [place] [address] Dr. Kaylene Montoya Protein (U) [Mass/Vol] 30 mg/dL Abnormal NEGAT TOMAS/ TRACE [facility] Comment on above: Performed By: #### L ACT #### [facility] [address] [place] [address] Dr. Kaylene Montoya SPEC GRAVITY 1.025 Normal 1.005-<=1. 025 [facility] Comment on above: Performed By: #### L ACT #### [facility] [address] [place] [address] Dr. Kaylene Montoya UR MICRO IND INDICATED Normal [facility] Comment on above: Performed By: #### L ACT #### [facility] [address] [place] [address] Dr. Kaylene Montoya Urobilinogen Qn (U) 0.2 {Mary Kate'U}/dL Normal 0.2 - 1. 0 [facility] Comment on above: Performed By: #### L ACT #### [facility] [address] [place] [address] Dr. Kaylene Montoya PROF 14(COMP METB)on 023 Albumin [Mass/Vol] 3.7 g/dL Normal 3.4-5.0 [facility] Comment on above: Performed By: #### F T4 #### [facility] [address] [address] [address] Kaylene Montoya Albumin/Globulin [Mass ratio] 1.3 {ratio} Normal [facility] Comment on above: Performed By: #### F T4 #### [facility] [address] [address] [address] Kaylene Montoya ALP [Catalytic activity/Vol] 89 U/L Normal 46-116 [facility] Comment on above: Performed By: #### F T4 #### [facility] [address] [place] [address] Dr. Kaylene Montoya ALT [Catalytic activity/Vol] 17 U/L Normal 16-63 [facility] Comment on above: Performed By: #### F T4 #### [facility] [address] [address] [address] Kaylene Montoya Anion gap [Moles/Vol] 11.6 mmol/L Normal [facility] Comment on above: Performed By: #### F T4 #### [facility] [address] [place] [address] Dr. Kaylene Montoya AST [Catalytic activity/Vol] 23 U/L Normal 15-37 [facility] Comment on above: Performed By: #### F T4 #### [facility] [address] [place] [address] [address] Kaylene Montoya Bilirubin [Mass/Vol] 0.7 mg/dL Normal 0.2-1.0 [facility] Comment on above: Performed By: #### F T4 #### [facility] [address] [place] [address] Dr. Kaylene Montoya Calcium [Mass/Vol] 9.2 mg/dL Normal 8.5-10.1 [facility] Comment on above: Performed By: #### F T4 #### [facility] [address] [place] [address] Dr. Kaylene Montoya Chloride [Moles/Vol] 104 mmol/L Normal 98-107 [facility] Comment on above: Performed By: #### F T4 #### [facility] [address] [place] [address] Dr. Kaylene Montoya CO2 [Moles/Vol] 29.2 mmol/L Normal 21.0-32.0 [facility] Comment on above: Performed By: #### F T4 #### [facility] [address] [place] [address] Dr. Kaylene Montoya Creatinine [Mass/Vol] 1.17 mg/dL Normal 0.70-1.30 [facility] Comment on above: Performed By: #### F T4 #### [facility] [address] [place] [address] Dr. Kaylene Montoya EGFR-AF CAMBODIAN >60 Normal >=60 [facility] Comment on above: Performed By: #### F T4 #### [facility] [address] [place] [address] Dr. Kaylene Montoya EGFR-NON AF CAMBODIAN 59 mL/min/1.73m2 Critically low >=60 [facility] Comment on above: Performed By: #### F T4 #### [facility] [address] [place] [address] Dr. Kaylene Montoya Globulin (S) [Mass/Vol] 2.9 g/dL Normal [facility] Comment on above: Performed By: #### F T4 #### [facility] [address] [place] [address] Dr. Kaylene Montoya Glucose [Mass/Vol] 88 mg/dL Normal 74-106 [facility] Comment on above: Performed By: #### F T4 #### [facility] [address] [place] [address] Dr. Kaylene Montoya Potassium [Moles/Vol] 4.8 mmol/L Normal 3.5-5.1 [facility] Comment on above: Performed By: #### F T4 #### [facility] [address] [place] [address] Dr. Kaylene Montoya Protein [Mass/Vol] 6.6 g/dL Normal 6.4-8.2 [facility] Comment on above: Performed By: #### F T4 #### [facility] [address] [place] [address] Dr. Kaylene Montoya Sodium [Moles/Vol] 140 mmol/L Normal 136-145 [facility] Comment on above: Performed By: #### F T4 #### [facility] [address] [place] [address] Dr. Kaylene Montoya Urea nitrogen [Mass/Vol] 25.0 mg/dL Critically high 7.0-18.0 [facility] Comment on above: Performed By: #### F T4 #### [facility] [address] [place] [address] Dr. Kaylene Montoya Urea nitrogen/Creatinine [Mass ratio] 21.4 mg/mg Normal [facility] Comment on above: Performed By: #### F T4 #### [facility] [address] [place] [address] Dr. Kaylene Montoya PROTIMEon 11-24-2022 INR Coag (PPP) [Relative time] 1.34 {INR} Normal [facility] Comment on above: Performed By: #### L ACT #### [facility] [address] [place] [address] Dr. Kaylene Montoya INR GUIDELINES SEE BELOW Normal [facility] Comment on above: Result Comment: JOSE RED INR: 2.0 - 3.0 CONDITIONS NOT LISTED BELOW 2.5 - 3.5 FOR PROSTHETIC HEART VALVE REPLACEMENT 2.5 - 3.5 RECURRENT THROMBOSIS Performed By: #### L ACT #### [facility] [address] [place] [address] Dr. Kaylene Montoya PT Coag (PPP) [Time] 14.0 s Critically high 9.0-11.6 [facility] Comment on above: Performed By: #### L ACT #### [facility] [address] [place] [address] Dr. Kaylene Montoya PTTon 11-24-2022 aPTT Coag (Bld) [Time] 31.8 s Normal 22.3-36.2 [facility] Comment on above: Performed By: #### L ACT #### [facility] [address] [place] [address] Dr. Kaylene Montoya TSHon 11-24-2022 TSH 5.486 uIU/mL Critically high 0.358-3.74 0 [facility] Comment on above: Performed By: #### F T4 #### [facility] [address] [place] [address] Dr. Kaylene Montoya URINE MICROSCOPIC ONLYon BACTERIA NONE SEEN Normal NONE SEEN [facility] Comment on above: Performed By: #### L ACT #### [facility] [address] [place] [address] Dr. Kaylene Montoya Bacteria identified Cx Nom (U) NOT INDICATED Normal [facility] Comment on above: Performed By: #### L ACT #### [facility] [address] [place] [address] Dr. Kaylene Montoya CAST NONE SEEN Normal NONE SEEN [facility] Comment on above: Performed By: #### L ACT #### [facility] [address] [place] [address] Dr. Kaylene Montoya Crystals LM Nom (Urine sed) NONE SEEN Normal NONE SEEN [facility] Comment on above: Performed By: #### L ACT #### [facility] [address] [place] [address] Dr. Kaylene Montoya Epithelial cells LM Ql (Urine sed) RARE Normal NONE SEEN /RARE [facility] Comment on above: Performed By: #### L ACT #### [facility] [address] [place] [address] Dr. Kaylene Montoya MUCOUS NONE SEEN Normal NONE SEEN [facility] Comment on above: Performed By: #### L ACT #### [facility] [address] [place] [address] Dr. Kaylene Montoya RBC 20-50 Abnormal 0-2 [facility] Comment on above: Performed By: #### L ACT #### [facility] [address] [place] [address] Dr. Kaylene Montoya WBC 0-2 Abnormal NONE SEEN [facility] Comment on above: Performed By: #### L ACT #### [facility] [address] [id number] [address] Kaylene Montoya US SCROTUM W VASCULAR ORGANo n 11-24-2022 US SCROTUM W VASCULAR ORGAN EXAM: US SCROTUM W VASCULAR ORGAN HISTORY: Swelling COMPARISON: None. TECHNIQUE: Scrotal ultrasound was performed, utilizing grayscale, color, and spectral Doppler. FINDINGS: RIGHT: Testis size: 4.4 x 2.7 x 3.2 cm. Testis morphology: Homogeneous appearance. No mass. Testis flow: Normal testicular color and spectral Doppler. Flow is symmetric with the contralateral testis. Epididymis: Normal size and morphology. It contains multiple calcifications and 1 cm cyst. Epididymis flow: Normal epididymal flow. Symmetric flow compared to contralateral epididymis. Scrotal sac: hydrocele, measuring 3.7 x 5.2 x 4.6 cm. Varicocele: None. LEFT: Testis size: 4.1 x 2.5 x 3.1 cm. Testis morphology: There is a 0.8 x 0.5 x 0.6 cm heterogenous, anechoic region in the posterior testicle, containing echogenic foci without significant vascular flow. Finding is indeterminate. Testicular MRI or short-term follow-up is recommended for better evaluation. Testis flow: Normal testicular color and spectral Doppler. Flow is symmetric with the contralateral testis. Epididymis: Normal size and morphology. Epididymis flow: Normal epididymal flow. Symmetric flow compared to contralateral epididymis. Scrotal sac: hydrocele, measuring 5.7 x 3.3 x 5.5 cm. Varicocele: Yes. Additional findings: None. IMPRESSION: 0.8 x 0.5 x 0.6 cm heterogenous, anechoic region in the posterior testicle, containing echogenic foci without significant vascular flow. Finding is indeterminate. Testicular MRI or short-term follow-up is recommended for better evaluation. Moderate left greater than right hydrocele. Left varicocele. No evidence of torsion at the time of examination. Electronically authenticated by: JEET POOLE Date: 2022-11-24 12:34 Normal [facility] XR CHEST 1 Von 11-24-2022 XR CHEST 1 V EXAMINATION: XR CHES T 1 V HISTORY: Swelling ; acute testicular swelling COMPARISON: XR chest 09/24/2022 FINDINGS: LUNGS: Opacities within right lung base obscuring the lower heart and diaphragm margins. Mild opacities within left lateral costophrenic angle. VASCULATURE: No increased pulmonary vasculature. PLEURA: No pneumothorax, effusion, or pleural thickening. CARDIAC: Myocardial megaly. MEDIASTINUM: No visible mass or adenopathy. BONES: No fracture or visible bone lesion. OTHER: Stable cardiac pacer. IMPRESSION: 1. Mild bibasilar infiltrates versus atelectasis, right greater than left. No convincing pleural effusion or pulmonary edema. Electronically authenticated by: USHA FERMIN Date: 2022-11-24 11:29 Normal [facility] Physician Referralon 023 Physician Referral [id number]:[id number] [facility] Family Medicine Office/Clini c Noteon 11-17-2022 Family Medicine Office/Clinic Note Chief Complaint est care HPI Staff establish care Establish Care: History: parkinsons. ascvd, hypothyroid, hypercholesterolemia Last provider: Yogesh Any recent labs:couple months ago Acute: Current issues/complaints:Nose won't stop running, has been going on for 3-4 months. Has a hard time getting up and keeping his balance. also can't walk as far as he used to would like to see about getting a wheelchair. History of Present Illness Magdaleno Valderrama is an 82-year-old male who presents today for an evaluation of shortness of breath and rhinorrhea. He is accompanied by his 2 oldest sons who care for him. Magdaleno explains that he can walk very far now. He is short of breath and has had rhinorrhea for 3 to 4 months. He has a diagnosis of Parkinson's disease. His caregivers explains that his balance is also affected. His neurologist is Dr. Real Montilla at [facility]. The patient is taking clonazepam for his sleep. Per Dr. Amy Zuñiga, clonazepam is the only medication that helps Magdaleno to sleep. He has sleep apnea and is supposed to be using a CPAP machine. He states that he needs to find out where to get new equipment from. He has Raynaud's and notes that his fingers get cold. He wears gloves to help with this. He has orthostatic hypotension. To avoid falls when he stands up, he sits on the side of his bed for 2 to 3 minutes before getting up. He states that when it comes to a bathroom emergency, he would rather have to change himself than to fall on the floor. His top carrier is Dr. Edel Cesar. Magdaleno explains that his shortness of breath started a few months ago prior to his last fall. His caregivers explains that he smoked for about 10 years. The patient denies drinking alcohol. He has a life alert. His son's state that the patient needs a wheelchair for times that they are out and he is unable to walk far. Review of Systems PHQ Score Initial Depression Screen Score: 0 Physical Exam Vitals & Measurements HR: 70(Peripheral) BP: 130/86 SpO2: 96% HT: 68 in HT: 172.7 cm WT: 73.6 kg WT: 161.92 lb BMI: 24.68 General: alert, no acute distress ENMT: oral mucosa moist, no pharyngeal erythema or exudate Cardiovascular: regular rate and rhythm, normal peripheral perfusion Respiratory: Lungs CTA, respirations non labored. No wheezing or crackles noted. Extremities: no deformity, no trauma Neurological: oriented x 4, LOC appropriate for age, CN II-XII intact, motor strength equal & normal bilaterally, speech normal. Patient ambulates with a cane with an unsteady gait. Assessment/Plan 1. Hypercholesterolemia (E78.00: Pure hypercholesterolemia, unspecified) The patient is on aspirin and statin. No issues at this time. 2. Raynaud's disease without gangrene (I73.00: Raynaud's syndrome without gangrene) The patient is doing well at this time. We will continue to monitor. 3. Orthostatic hypotension (I95.1: Orthostatic hypotension) The patient uses behavioral changes to mitigate these issues. The patient is doing well with lifestyle changes to mitigate orthostatic hypotension. 4. 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 Cesar at [facility]. No issues today. No chest pain. 5. Parkinson's disease (G20: Parkinson's disease) The patient is seeing a specialist, Dr. Montilla out of [place]. The patient has carbidopa levodopa for this. No concerns at this time 6. Cognitive dysfunction (F09: Unspecified mental disorder due to known physiological condition) As per # 5, the patient is stable. 7. BINA (obstructive sleep apnea) (G47.33: Obstructive sleep apnea (adult) (pediatric)) Discussed the pros and cons of using clonazepam in a patient with sleep apnea. The patient notes that he has to use his CPAP machine in order to continue using clonazepam. The patient and family is agreeable. 8. Insomnia, unspecified type (G47.00: Insomnia, unspecified) Discussed the pros and cons of using clonazepam in this patient for insomnia. The benefit outweigh the risk at this time, but discussed how that may change in the future. If it changes in the future, we may have to adjust the medications. The patient is good with that and so is the family. We will reevaluate in 2 months. 9. BMI 24.0-24.9, adult (Z68.24: Body mass index [BMI] 24.0-24.9, adult) BMI education given. 10. Former smoker (Z87.891: Personal history of nicotine dependence) Please continue not to smoke. 11. Dyspnea, unspecified type (R06.00: Dyspnea, unspecified) May be secondary to his Parkinson's. Family is going to get a quicker visit with the neurologist to make sure that it may be seeing if it is actually the Parkinson's that's causing the shortness of breath. If he does not believe that it's so, since it's been going on for several months, we will do a PFT (more content not included)... Normal 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 Primary Care Physician - YOGESH MEJIA, AMY Dye This Is Your Medications List aspirin (aspirin 325 mg oral capsule) aspirin (aspirin 81 mg oral tablet) atorvastatin (atorvastatin 20 mg Tab) carbidopa-levodopa (carbidopa-levodopa 25 mg-100 mg ER Tab) cholecalciferol (Vitamin D3) clonazepam (ClonazePAM 0.5 mg Tab) clonazepam (ClonazePAM 0.5 mg Tab) cyanocobalamin (Vitamin B12) haloperidol (Haldol) levothyroxine (levothyroxine 100 mcg (0.1 mg) Tab) rasagiline (rasagiline 1 mg oral tablet) Procedures Performed Cardiac pacemaker (Week of 09/25/2022), Cystoscopy (05/24/2013), External beam radiotherapy (03/2011), Transrectal biopsy of prostate using ultrasound (US) guidance (12/31/2010), Biopsy of skin, Esophagoduodenostomy. Discharge Vitals Heart Rate (Peripheral) 70 Blood Pressure 130/86 Height 172.7 cm Height 68 in Weight 73.6 kg Weight 161.92 lb BMI 24.68 Medications What How Much When Instructions Unchanged aspirin (aspirin 325 mg oral capsule) 1 Capsules By Mouth Every day Unchanged aspirin (aspirin 81 mg oral tablet) By Mouth Every day Unchanged atorvastatin (atorvastatin 20 mg Tab) 1 Tablets By Mouth Every day Unchanged carbidopa-levodopa (carbidopa-levodopa 25 mg-100 mg ER Tab) 1 Tablets By Mouth 2 times a day Unchanged cholecalciferol (Vitamin D3) Unchanged clonazepam (ClonazePAM 0.5 mg Tab) 1 Tablets By Mouth Once a day (at bedtime) Unchanged clonazepam (ClonazePAM 0.5 mg Tab) 1 Tablets By Mouth Once a day (at bedtime) Duration: 30 Days g47.01 Unchanged cyanocobalamin (Vitamin B12) Unchanged haloperidol (Haldol) Unchanged levothyroxine (levothyroxine 100 mcg (0.1 mg) Tab) 1 Tablets By Mouth Every day Duration: 90 Days / 2 on Monday Unchanged rasagiline (rasagiline 1 mg oral tablet) By Mouth Every day Allergies Neosporin (Unknown) Problems Ongoing - Any problem that you are currently receiving treatment for. 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 Elevated PSA Normal [facility] RAD - Ultrasound Reporton RAD - Ultrasound Report [id number]:[address] [facility] CNOVon 10-20-2022 CNOV Office Visit (NRESAV ) -- MAGDALENO VALDERRAMA ([id number]) 1940 M Date Time Provider Department 10/20/22 4:00 PM EFREN CARBAJAL During your visit today, we recorded the following information about you: Pulse Blood pressure 82/minute 155/91 Efren Carbajal DO 10/20/2022 4:19 PM Signed [facility] - FOLLOW UP EVALUATION Efren Carbajal [address] [facility] [address] Amy Zuñiga MD [address] [facility] [id number] Magdaleno Valderrama is a 82 year old right-handed male with a history of senescent parkinsonism. He is seen with a son. Interval History Since Last Visit: The patient has had some medical issues recently - he fell due to bradycardia - found to have a-fib and needed a pacemaker. The patient needed 7-9 stitches. The patient denies any hospitalization since the last office visit. The patient denies any changes to their medical history or new diagnoses. The patient denies any surgery/procedure since their last visit. The patient denies any headache, chest pain, palpitations, shortness of breath or abdominal pain. The patient denies any seizures, numbness/tingling, lightheadedness or vertiginous symptoms. The patient denies any recent suicidal ideation or attempts to harm themselves or others. The patient denies any new pain. He has more trouble with turning. The peak-dose dyskinesias (levodopa-induced dyskinesias - LID) are much better recently. LID threw his balance off and he fell numerous times. Parkinson's Medications Schedule: Medications 6 AM 10 AM 2 PM 6 PM Carbidopa/levodopa CR 50/200 mg 1 1 1 1 Carbidopa/levodopa 25/100 1.5 1.5 1.5 1.5 Donepezil 5 mg 1 Clonazepam 0.5 mg 1 Miralax as needed Melatonin 15 mg 1 Previous Parkinson's Medications: None Allergies: ALLERGIES Allergen Reactions Neosporin [Neomycin* Current Medications: Current Outpatient Medications Medication Sig clonazePAM (KLONOPIN) 0.5 mg tablet Take by mouth. donepezil (ARICEPT) 5 mg tablet TAKE 1 TABLET BY MOUTH EVERY MORNING FOR THE FIRST MONTH ELIQUIS 5 mg tab(s) Take 5 mg by mouth twice daily. vit C/E/Zn/coppr/lutein/zeaxan (PRESERVISION AREDS-2 ORAL) Take by mouth. carbidopa-levodopa (SINEMET 25-100) 25-100 mg per tablet Take 1.5 tablets by mouth four times daily. Take 1.5 tablets of immediate release levodopa/carbidopa 25/100 mg at 6 AM, 10 AM, 2 PM, and 6 PM carbidopa-levodopa CR (SINEMET CR) 50-200 mg per tablet Take 1 tablet by mouth four times daily. Take 1 tablet of controlled release levodopa/carbidopa 50/200 mg at 6 AM, 10 AM, 2 PM, and 6 PM levothyroxine (SYNTHROID) 100 mcg tablet 1.5 tab on Mondays, one other 6 days. allopurinol (ZYLOPRIM) 300 mg tablet Take 1 tablet by mouth once daily. atorvastatin 20 mg tablet Take 20 mg by mouth once daily. Cholecalciferol, Vitamin D3, 25 mcg (1,000 unit) cap Take 1,000 Units by mouth once daily. cyanocobalamin(VITAMIN B-12 500 MCG TAB) Take one(1) tablet daily. No current facility-administered medications for this visit. Objective: Vital Signs: BP 155/91 (BP Site: Left Arm, BP Position: Sitting, BP Cuff Size: Regular Adult) Pulse 82 General Medical Examination: General Description of Patient: Well appearing, comfortable and Thin Head:normocephalic, atraumatic and multiple scabs on top of scalp Neck:No bruits, full range of movement, supple Cardiac: Regular Rate and Rhythm Extremities: No leg edema, pulses intact, no rash or venous stasis changes. Neurological Exam Mental Status Awake and alert. Recent and remote memory are intact. Speech is normal. Language is fluent with no aphasia. Attention and concentration are normal. Fund of knowledge is appropriate for level of education. Cranial Nerves CN II to XII reported as normal . Motor No fasciculations present. Strength is 5/5 throughout all four extremities. No focal weakness appreciated on examination. Sensory There is no gross stocking-glove gradient in bilateral extremities with vibration. Dual simultaneous stimulation is intact. Reflexes Right Left Brachioradialis 2+ 2+ Biceps 2+ 2+ Triceps 2+ 2+ Hamstring 1+ 1+ Patellar 1+ 1+ Right pathological reflexes: Kailash's absent. Left pathological reflexes: Kailash's absent. Coordination Right: [id number] normal. Rapid alternating movement normal.Left: [id number] normal. Rapid alternating movement normal. Gait Casual gait: Narrow stance. Reduced stride length. Freezing, hesitant and shuffling gait. The patient did require assistive devices [cane] to ambulate. Movement Disorders There is no rest tremor. The patient has no action tremor. The patient has no postural tremor. The patient does not have a vocal or lingual tremor. An orthostatic tremor is not noted bilaterally. There is minimal rigidity on examination. There is marked bilatera (more content not included)... Normal [facility] SINGLE QUAD RT UPPERon SINGLE QUAD RT UPPER EXAMINATION: US SINGLE QUAD RT UPPER HISTORY: Abdominal pain COMPARISON: No relevant comparison available. TECHNIQUE: Transabdominal evaluation of the right upper quadrant. FINDINGS: LIVER: Normal size and echotexture. Color Doppler demonstrates patent hepatic veins. Small amount of free fluid adjacent the liver which appears to be septated suggesting this is chronic. PORTAL VEIN: Duplex Doppler demonstrates normal hepatopetal flow pattern with flow velocity averaging 47 cm/s. GALLBLADDER: Circumferential, abnormal wall thickening of the gallbladder up to 8 mm. Trace amount of free fluid. Common bile duct is at upper limits of normal in diameter. BILIARY: No abnormal dilation or stones. Common bile duct diameter is within normal limits. PANCREASE: No visible mass, abnormal atrophy, or duct dilation. KIDNEY: Contains multiple known large cysts. Small nonobstructing stone within kidney, 7 mm. Size: 14.3 x 6.5 x 6.6 cm IMPRESSION: 1. Acute versus chronic cholecystitis; marked wall thickening without appreciable stones, mass, or dilation of the common bile duct. 2. Small amount of free fluid along the liver which appears to be chronic. 3. Nonobstructing right nephrolithiasis. Known, chronic large renal cysts. Electronically authenticated by: USHA FERMIN Date: 2022-10-19 09:57 Normal [facility] Physician Referralon 023 Physician Referral [id number]:[address] [facility] Family Medicine Office/Clini c Noteon 10-11-2022 Family Medicine Office/Clinic Note Chief Complaint hospital follow up, staple removal HPI Staff Patient is here for a hospital follow up needs kev out TCM: Hospital:[facility] [place] Admission date: 09/24/22 Discharge date:09/27/22 Symptoms the patient presented with: had passed out hit the gravel and ended up getting a pacemaker Current concerns: none PSA: unkonw ? due AMW: Flu/Covid:UTD Physical Exam Vitals & Measurements HR: 88(Peripheral) RR: 20 BP: 130/82 SpO2: 99% HT: 68 in HT: 172.70 cm WT: 68.9 kg WT: 151.58 lb BMI: 23.1 Assessment/Plan 1. 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 Cognitive dysfunction Constipation in male Gout History of colon cancer History of prostate cancer History of skin cancer Hypercholesterolemia Hypothyroid Insomnia disorder Maxillary sinusitis, chronic Orthostatic hypotension BINA (obstructive sleep apnea) Parkinson's disease Raynaud's disease Spondylosis Vitamin D deficiency Weight loss, unintentional Historical Elevated PSA Procedure/Surgical History Cardiac pacemaker (Week of 09/25/2022), Cystoscopy (05/24/2013), External beam radiotherapy (03/2011), Transrectal biopsy of prostate using ultrasound (US) guidance (12/31/2010), Biopsy of skin, Esophagoduodenostomy. Medications aspirin 325 mg oral capsule, 325 mg= 1 cap(s), Oral, Daily, Not taking aspirin 81 mg oral tablet, Oral, Daily, Not taking atorvastatin 20 mg Tab, 20 mg= 1 tab(s), Oral, Daily, Not taking carbidopa-levodopa 25 mg-100 mg ER Tab, 1 tab(s), Oral, BID Haldol levothyroxine 100 mcg (0.1 mg) Tab, 100 mcg= 1 tab(s), Oral, Daily rasagiline 1 mg oral tablet, Oral, Daily Vitamin B12 Vitamin D3 Allergies Neosporin (Unknown) Social History Alcohol - Low Risk, 05/04/2021 Substance Abuse - No Risk, 05/04/2021 Tobacco - No Risk, 05/04/2021 Former smoker, quit more than 30 days ago Tobacco Use:. Cigarettes, 10/11/2022 Family History Diabetes mellitus type 2: Mother. Primary malignant neoplasm of prostate: Father. Primary malignant neoplasm of skin: Mother. Immunizations Vaccine Date Status Comments SARS-CoV-2 (COVID-19) mRNAMUL.ORD![id number] 07/13/2022 Recorded 2022-10-07: TPV80 influenza virus vaccine, inactivated 05/04/2022 Recorded SARS-CoV-2 (COVID-19) mRNA-1273 vaccine 07/20/2021 Recorded 2022-10-07: TPV80 SARS-CoV-2 (COVID-19) mRNA-1273 vaccine 09/25/2020 Recorded SARS-CoV-2 (COVID-19) mRNA-1273 vaccine 08/28/2020 Recorded influenza virus vaccine, inactivated 05/27/2020 Recorded pneumococcal 23-valent vaccine 06/12/2019 Recorded influenza virus vaccine, inactivated 06/12/2019 Recorded influenza virus vaccine, inactivated 06/04/2018 Recorded pneumococcal 13-valent vaccine 07/03/2017 Recorded influenza virus vaccine, inactivated 07/03/2017 Recorded influenza virus vaccine, inactivated 05/24/2013 Recorded influenza, whole 05/16/[address] [facility] Comment on above: Result Comment: Elec tronically Signed By: YOGESH MEJIA, AMY Humphries\Date and Time Signed: 10/11/22 14:52 EDT Family Medicine Office/Clinic Note Chief Complaint hospital follow up, staple removal HPI Staff Patient is here for a hospital follow up needs kev out TCM: Hospital[place] [place] Admission date: 09/24/22 Discharge date:09/27/22 Symptoms the patient presented with: had passed out hit the gravel and ended up getting a pacemaker Current concerns: none PSA: unkonw ? due AMW: Flu/Covid:UTD History of Present Illness Fell striking his cheeck and needed a pacemaker that was placed by Dr Ellis. Review of Systems see [facility] Physical Exam Vitals & Measurements HR: 88(Peripheral) RR: 20 BP: 130/82 SpO2: 99% HT: 68 in HT: 172.70 cm WT: 68.9 kg WT: 151.58 lb BMI: 23.1 Wound healed without infection. seven kev two were buried that needed extensive work fot removal. Assessment/Plan 1. Atherosclerotic heart disease (I25.10: 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) sTitches relmoved ed. on pacemeker rto prn explained. 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 Cognitive dysfunction Constipation in male Gout History of colon cancer History of prostate cancer History of skin cancer Hypercholesterolemia Hypothyroid Insomnia disorder Maxillary sinusitis, chronic Orthostatic hypotension BINA (obstructive sleep apnea) Parkinson's disease Raynaud's disease Spondylosis Vitamin D deficiency Weight loss, unintentional Historical Elevated PSA Procedure/Surgical History Cardiac pacemaker (Week of 09/25/2022), Cystoscopy (05/24/2013), External beam radiotherapy (03/2011), Transrectal biopsy of prostate using ultrasound (US) guidance (12/31/2010), Biopsy of skin, Esophagoduodenostomy. Medications aspirin 325 mg oral capsule, 325 mg= 1 cap(s), Oral, Daily, Not taking aspirin 81 mg oral tablet, Oral, Daily, Not taking atorvastatin 20 mg Tab, 20 mg= 1 tab(s), Oral, Daily, Not taking carbidopa-levodopa 25 mg-100 mg ER Tab, 1 tab(s), Oral, BID Haldol levothyroxine 100 mcg (0.1 mg) Tab, 100 mcg= 1 tab(s), Oral, Daily rasagiline 1 mg oral tablet, Oral, Daily Vitamin B12 Vitamin D3 Allergies Neosporin (Unknown) Social History Alcohol - Low Risk, 05/04/2021 Substance Abuse - No Risk, 05/04/2021 Tobacco - No Risk, 05/04/2021 Former smoker, quit more than 30 days ago Tobacco Use:. Cigarettes, 10/11/2022 Family History Diabetes mellitus type 2: Mother. Primary malignant neoplasm of prostate: Father. Primary malignant neoplasm of skin: Mother. Immunizations Vaccine Date Status Comments SARS-CoV-2 (COVID-19) mRNAMUL.ORD![id number] 07/13/2022 Recorded 2022-10-07: TPV80 influenza virus vaccine, inactivated 05/04/2022 Recorded SARS-CoV-2 (COVID-19) mRNA-1273 vaccine 07/20/2021 Recorded 2022-10-07: TPV80 SARS-CoV-2 (COVID-19) mRNA-1273 vaccine 09/25/2020 Recorded SARS-CoV-2 (COVID-19) mRNA-1273 vaccine 08/28/2020 Recorded influenza virus vaccine, inactivated 05/27/2020 Recorded pneumococcal 23-valent vaccine 06/12/2019 Recorded influenza virus vaccine, inactivated 06/12/2019 Recorded influenza virus vaccine, inactivated 06/04/2018 Recorded pneumococcal 13-valent vaccine 07/03/2017 Recorded influenza virus vaccine, inactivated 07/03/2017 Recorded influenza virus vaccine, inactivated 05/24/2013 Recorded influenza, whole 05/16/[address] [facility] Comment on above: Result Comment: Elec tronically Signed By: YOGESH MEJIA, AMY Humphries\Date and Time Signed: 10/11/22 14:46 EDT Basophils Auto (Bld) [#/Vol] Ordered By: Jrodan Gallegos on 09-27-2022 Basophils (Bld) [#/Vol] 0.0 10*3/uL 0.0-0.[address] [facility] Basophils/100 WBC Auto (Bld) Ordered By: Jordan Gallegos on 09-27-2022 Basophils/100 WBC (Bld) 0.3 % . [facility] Calcium [Mass/volume] in Ser um or PlasmaOrdered By: Jordan Gallegos on 09-27-2022 Calcium [Mass/Vol] 8.3 mg/dL 8.2-10.2 [facility] Carbon dioxide, total [Moles /volume] in Serum or PlasmaOrdered By: Jordan Gallegos on 09-27-2022 CO2 [Moles/Vol] 27.0 mmol/L 22.0-30.0 [facility] Chloride [Moles/volume] in S siddharth or PlasmaOrdered By: Jordan Gallegos on 09-27-2022 Chloride [Moles/Vol] 101 mmol/L 95-114 [facility] Creatinine and Glomerular fi ltration rate.predicted panel (S/P/Bld)Ordered By: Jordan Gallegos on 09-27-2022 Creatinine [Mass/Vol] 0.89 mg/dL 0.64-1.27 [facility] Eosinophils Auto (Bld) [#/Vo l]Ordered By: Jordan Gallegos on 09-27-2022 Eosinophils (Bld) [#/Vol] 0.1 10*3/uL 0.0-0.[address] [facility] Eosinophils/100 WBC Auto (Bl d)Ordered By: Jordan Gallegos on 09-27-2022 Eosinophils/100 WBC (Bld) 1.5 % . [facility] Erythrocyte distribution wid th Auto (RBC) [Ratio]Ordered By: Jordan Gallegos on 09-27-2022 Erythrocyte distribution width (RBC) [Ratio] 18.0 % 12.0-14.[address] [facility] Estimated glomerular filtrat ion rate (GFR) non- AmericanOrdered By: Jordan Gallegos on 09-27-2022 GFR/1.73 sq M.predicted among non-blacks MDRD (S/P/Bld) [Vol rate/Area] > 60 mL/Min [facility] Glucose [Mass/volume] in Ser um or PlasmaOrdered By: Jordan Gallegos on 09-27-2022 Glucose [Mass/Vol] 89 mg/dL 70-100 [facility] Comment on above: ADA recommended refe rence rangeRandom Glucose Reference Range is dependent on time and content of last meal. Glucose of more than 200 mg/dL in a nonstressed, ambulatory subject supports the diagnosis of Diabetes Mellitus. Hematocrit Auto (Bld) [Volum e fraction]Ordered By: Jordan Gallegos on 09-27-2022 Hematocrit (Bld) [Volume fraction] 35.5 % 38.8-50.[address] [facility] Hemoglobin [Mass/volume] in BloodOrdered By: Jordan Gallegos on 09-27-2022 Hemoglobin (Bld) [Mass/Vol] 11.7 g/dL 13.0-17.[address] [facility] Laboratory - Chemistry and C hemistry - challengeOrdered By: Jordan Gallegos on 09-27-2022 Magnesium [Mass/Vol] 1.8 mg/dL 1.6-2.6 [facility] Leukocytes [#/volume] correc parag for nucleated erythrocytes in Blood by Automated counOrdered By: Jordan Gallegos on 09-27-2022 WBC corrected for nucl RBC Auto (Bld) [#/Vol] 7.8 10*3/uL 4.1-10.[address] [facility] Lymphocytes Auto (Bld) [#/Vo l]Ordered By: Jordan Gallegos on 09-27-2022 Lymphocytes (Bld) [#/Vol] 0.9 10*3/uL 1.00-4.[address] [facility] Lymphocytes/100 WBC Auto (Bl d)Ordered By: Jordan Gallegos on 09-27-2022 Lymphocytes/100 WBC (Bld) 11.6 % . [facility] MCH Auto (RBC) [Entitic mass ]Ordered By: Jordan Gallegos on 09-27-2022 MCH (RBC) [Entitic mass] 29.7 pg 27.5-35.[address] [facility] MCHC Auto (RBC) [Mass/Vol]Or dered By: Jordan Gallegos on 09-27-2022 MCHC (RBC) [Mass/Vol] 32.8 g/dL 32.5-35.6 [facility] MCV Auto (RBC) [Entitic vol] Ordered By: Jordan Gallegos on 09-27-2022 MCV (RBC) [Entitic vol] 90.5 fL 83.5-[address] [facility] Monocytes Auto (Bld) [#/Vol] Ordered By: Jordan Gallegos on 09-27-2022 Monocytes (Bld) [#/Vol] 0.8 10*3/uL 0.0-0.[address] [facility] Monocytes/100 WBC Auto (Bld) Ordered By: Jordan Gallegos on 09-27-2022 Monocytes/100 WBC (Bld) 10.3 % . [facility] Neutrophils Auto (Bld) [#/Vo l]Ordered By: Jordan Gallegos on 09-27-2022 Neutrophils (Bld) [#/Vol] 6.0 10*3/uL 1.8-7.[address] [facility] Neutrophils/100 WBC Auto (Bl d)Ordered By: Jordan Gallegos on 09-27-2022 Neutrophils/100 WBC (Bld) 76.3 % . [facility] No Panel InformationOrdered By: Jordan Gallegos on 09-27-2022 Estimated GFR () > 60 mL/Min [facility] Comment on above: GFR estimated refere nce range: According to KDOQI guidelines, <60 ml/min/1.73m2 is sufficient to diagnose a patient with chronic kidney disease. Pharmacy Creatinine Clearance (Chem 59.[address] [facility] Nucleated erythrocytes [Pres ence] in Blood by Automated countOrdered By: Jordan Gallegos on 09-27-2022 Nucleated RBC Auto Ql (Bld) 0.0 /100{WBC} 0-0.[address] [facility] Platelet mean volume Auto (B ld) [Entitic vol]Ordered By: Jordan Gallegos on 09-27-2022 Platelet mean volume (Bld) [Entitic vol] 8.3 fL 6.6-10.[address] [facility] Platelets Auto (Bld) [#/Vol] Ordered By: Jordan Gallegos on 09-27-2022 Platelets (Bld) [#/Vol] 122 10*3/uL 150-[address] [facility] Potassium [Moles/volume] in Serum or PlasmaOrdered By: Jordan Gallegos on 09-27-2022 Potassium [Moles/Vol] 3.9 mmol/L 3.5-5.1 [facility] RBC Auto (Bld) [#/Vol]Ordere d By: Jordan Gallegos on 09-27-2022 RBC (Bld) [#/Vol] 3.92 10*6/uL 3.90-5.60 [facility] Serum or plasma anion gap de terminationOrdered By: Jordan Gallegos on 09-27-2022 Anion gap [Moles/Vol] 9.9 mmol/L 6.0-15.0 [facility] Sodium [Moles/volume] in Ser um or PlasmaOrdered By: Jordan Gallegos on 09-27-2022 Sodium [Moles/Vol] 134 mmol/L 136-146 [facility] Urea nitrogen [Mass/volume] in Serum or PlasmaOrdered By: Jordan Gallegos on 09-27-2022 Urea nitrogen [Mass/Vol] 18 mg/dL 9-[address] [facility] WBC Auto (Bld) [#/Vol]Ordere d By: Jordan Gallegos on 09-27-2022 WBC (Bld) [#/Vol] 7.8 10*3/uL 4.1-10.5 [facility] Activated partial thrombopla stin time (aPTT) in platelet poor plasma by coagulation aOrdered By: Roel Mireles on 09-26-2022 aPTT Coag (PPP) [Time] 34.0 s 25.1-36.5 [facility] Albumin [Mass/volume] in Bod y fluidOrdered By: Jordan Gallegos on 09-26-2022 Albumin (Body fld) [Mass/Vol] 3.3 g/dL 3.2-5.[address] [facility] Alkaline phosphatase [Enzyma tic activity/volume] in Serum or PlasmaOrdered By: Jordan Gallegos on 09-26-2022 ALP [Catalytic activity/Vol] 74 U/L 32-[address] [facility] Aspartate aminotransferase [ Enzymatic activity/volume] in Serum or PlasmaOrdered By: Jordan Gallegos on 09-26-2022 AST [Catalytic activity/Vol] 25 U/L 10-[address] [facility] Bilirubin.total [Mass/volume ] in Serum or PlasmaOrdered By: Jordan Gallegos on 09-26-2022 Bilirubin [Mass/Vol] 1.0 mg/dL 0.3-1.2 [facility] Globulin Calc (S) [Mass/Vol] Ordered By: Jordan Gallegos on 09-26-2022 Globulin (S) [Mass/Vol] 2.1 g/dL [facility] Laboratory - CoagulationOrde red By: Roel Mireles on 09-26-2022 PT Coag (PPP) [Time] 15.6 s 9.0-12.9 [facility] Platelet poor plasma interna tional normalized ratio (INR) by coagulation assay (relatOrdered By: Roel Mireles on 09-26-2022 INR Coag (PPP) [Relative time] 1.4 {INR} [facility] Comment on above: INR Therapeutic Rang e A) Pre- and Peroperative OAT started two weeks before surgery. NOT HIP SURGERY: 1.5 - 2.5 HIP SURGERY: 2 - 3B) Primary and secondary prevention of venous THROMBOSIS: 2 - 3C) Active venous thrombosis, pulmonary embolismand prevention of recurrent venous thrombosis: 2 - 3D) Prevention of arterial thromboembolismincluding patients with mechanical heart valves: 3 - 4.5 Protein [Mass/volume] in Ser um or PlasmaOrdered By: Jordan Gallegos on 09-26-2022 Protein [Mass/Vol] 5.4 g/dL 6.1-7.9 [facility] Serum or plasma alanine li otransferase measurement without P-5'-P (enzymatic activiOrdered By: Jordan Gallegos on 09-26-2022 ALT No additional P-5'-P [Catalytic activity/Vol] 10 U/L 10-[address] [facility] Serum or plasma albumin/glob ulin mass ratioOrdered By: Jordan Gallegos on 09-26-2022 Albumin/Globulin [Mass ratio] 1.6 {ratio} [facility] CARDIAC CRISTIAN ADMITon 023 CK [Catalytic activity/Vol] 291 U/L Normal 39-308 [facility] Comment on above: Performed By: #### L ACT #### [facility] [address] [address] [address] Kaylene Montoya CK.MB [Mass/Vol] 9.66 ng/mL Critically high <=3.60 [facility] Comment on above: Performed By: #### L ACT #### [facility] [address] [address] [address] Kaylene Montoya HSTROP 25.4 pg/mL Normal 4.0-76.1 [facility] Comment on above: Result Comment: CUT- OFF POINTS HAVE BEEN ESTABLISHED BASED ON THE FOURTH UNIVERSAL DEFINITIONS OF MYOCARDIAL INFARCTION. THE UPPER REFERENCE LIMIT (URL) OF TROPONIN, DEFINED THE 99TH PERCENTILE OF cTnI DISTRIBUTION IN A REFERENCE POPULATION, HAS BEEN CONFIRMED THE DECISION THRESHOLD FOR MD DIAGNOSIS. Performed By: #### L ACT #### [facility] [address] [address] [address] Kaylene Montoya LEOPOLDO 357 ng/mL Critically high 16-96 [facility] Comment on above: Performed By: #### L ACT #### [facility] [address] [address] [address] Kaylene Montoya CBC AUTO DIFFon 09-25-2022 BASO # 0.0 103/ul Normal 0.0-0.1 [facility] Comment on above: Performed By: #### P TT, PT #### [facility] [address] [address] [address] Kaylene Montoya Basophils/100 WBC (Bld) 0.4 % Normal 0.2-2.0 [facility] Comment on above: Performed By: #### P TT, PT #### [facility] [address] [address] [address] Kaylene Montoya EO # 0.1 103/ul Normal 0.0-0.7 [facility] Comment on above: Performed By: #### P TT, PT #### [facility] [address] [place] [address] Dr. Kaylene Montoya Eosinophils/100 WBC (Bld) 1.1 % Normal 0.9-7.0 [facility] Comment on above: Performed By: #### P TT, PT #### [facility] [address] [place] [address] Dr. Kaylene Montoya Erythrocyte distribution width (RBC) [Ratio] 18.3 % Critically high 11.0-15.0 [facility] Comment on above: Performed By: #### P TT, PT #### [facility] [address] [place] [address] Dr. Kaylene Montoya Hematocrit (Bld) [Volume fraction] 35.4 % Critically low 42.0-54.0 [facility] Comment on above: Performed By: #### P TT, PT #### [facility] [address] [place] [address] Dr. Kaylene Montoya Hemoglobin (Bld) [Mass/Vol] 11.5 g/dL Critically low 14.0-18.0 [facility] Comment on above: Performed By: #### P TT, PT #### [facility] [address] [place] [address] Dr. Kaylene Montoya IG # 0.04 10e3/ul Critically high 0.00-0.03 [facility] Comment on above: Performed By: #### P TT, PT #### [facility] [address] [place] [address] Dr. Kaylene Montoya IG % 0.5 % Normal 0.0-0.5 [facility] Comment on above: Performed By: #### P TT, PT #### [facility] [address] [place] [address] Dr. Kaylene Montoya LYMPH # 0.9 103/ul Critically low 1.2-3.8 [facility] Comment on above: Performed By: #### P TT, PT #### [facility] [address] [place] [address] Dr. Kaylene Montoya Lymphocytes/100 WBC (Bld) 11.5 % Critically low 20.5-60.0 [facility] Comment on above: Performed By: #### P TT, PT #### [facility] [address] [place] [address] Dr. Kaylene Montoya MANUAL DIFF REQ NO Normal [facility] Comment on above: Performed By: #### P TT, PT #### [facility] [address] [place] [address] Dr. Kaylene Montoya MCH (RBC) [Entitic mass] 29.4 pg Normal 25.9-34.0 [facility] Comment on above: Performed By: #### P TT, PT #### [facility] [address] [place] [address] Dr. Kaylene Montoya MCHC (RBC) [Mass/Vol] 32.5 g/dL Normal 29.9-35.2 [facility] Comment on above: Performed By: #### P TT, PT #### [facility] [address] [place] [address] Dr. Kaylene Montoya MCV (RBC) [Entitic vol] 90.5 fL Normal 80.0-94.0 [facility] Comment on above: Performed By: #### P TT, PT #### [facility] [address] [place] [address] Dr. Kaylene Montoya MONO # 1.0 103/ul Critically high 0.3-0.8 [facility] Comment on above: Performed By: #### P TT, PT #### [facility] [address] [place] [address] Dr. Kaylene Montoya Monocytes/100 WBC (Bld) 12.3 % Critically high 1.7-12.0 [facility] Comment on above: Performed By: #### P TT, PT #### [facility] [address] [place] [address] Dr. Kaylene Montoya NEUT # 6.0 103/ul Normal 1.4-6.5 [facility] Comment on above: Performed By: #### P TT, PT #### [facility] [address] [place] [address] Dr. Kaylene Montoya Neutrophils/100 WBC (Bld) 74.2 % Normal 43.0-75.0 [facility] Comment on above: Performed By: #### P TT, PT #### [facility] [address] [place] [address] Dr. Kaylene Montoya Platelet mean volume (Bld) [Entitic vol] 10.3 fL Normal 9.5-13.5 [facility] Comment on above: Performed By: #### P TT, PT #### [facility] [address] [place] [address] Dr. Kaylene Montoya PLT 132 103/ul Critically low 150-450 [facility] Comment on above: Performed By: #### P TT, PT #### [facility] [address] [place] [address] Dr. Kaylene Montoya RBC 3.91 106/ul Critically low 4.70-6.10 [facility] Comment on above: Performed By: #### P TT, PT #### [facility] [address] [place] [address] Dr. Kaylene Montoya WBC 8.0 103/ul Normal 4.0-11.0 [facility] Comment on above: Performed By: #### P TT, PT #### [facility] [address] [place] [address] Dr. Kaylene Montoya Covid-19 PCR ([facility])on 09-01 SARS-CoV-2 (COVID-19) RNA RENU+probe Ql (Unsp spec) Not detected Normal NOT DETECTED [facility] Comment on above: Result Comment: When diagnostic testing is negative, the possibility of a false negative should be considered in the context of a patient's recent exposures and the presence of clinical signs and symptoms consistent with SARS-CoV-2. This test is not yet approved or cleared by the [place] FDA. When there are no FDA-approved or cleared tests available, and other criteria are met, FDA can make tests available under an emergency access mechanism called an Emergency Use Authorization (EUA). The EUA for this test is supported by the [place] of Health and Human Service's declaration that circumstances exist to justify the emergency use of in vitro diagnostics for the detection and/or diagnosis of the virus that causes COVID-19. This EUA will remain in effect for the duration of the COVID-19 declaration justifying emergency of IVDs, unless it is terminated or revoked by the FDA (after which the test may no longer be used). Performed By: #### C VDTBH #### [facility] [address] [place] [address] Dr. Kaylene Montoya FREE T3on 09-25-2022 FREE T3 1.36 pg/mlL Critically low 2.18-3.98 [facility] Comment on above: Performed By: #### L ACT #### [facility] [address] [place] [address] Dr. Kaylene Montoya T4on 09-25-2022 T4 [Mass/Vol] 5.50 ug/dL Normal 4.50-12.10 [facility] Comment on above: Performed By: #### T 4 #### [facility] [address] [place] [address] Dr. Kaylene Montoya TSHon 09-25-2022 TSH 3.804 uIU/mL Critically high 0.358-3.74 0 [facility] Comment on above: Performed By: #### P TT, PT #### [facility] [address] [place] [address] Dr. Kaylene Montoya CBC AUTO DIFFon 09-24-2022 BASO # 0.0 103/ul Normal 0.0-0.1 [facility] Comment on above: Performed By: #### C BC #### [facility] [address] [place] [address] Dr. Kaylene Montoya Basophils/100 WBC (Bld) 0.4 % Normal 0.2-2.0 [facility] Comment on above: Performed By: #### C BC #### [facility] [address] [place] [address] Dr. Kaylene Montoya EO # 0.1 103/ul Normal 0.0-0.7 [facility] Comment on above: Performed By: #### C BC #### [facility] [address] [place] [address] Dr. Kaylene Montoya Eosinophils/100 WBC (Bld) 1.7 % Normal 0.9-7.0 [facility] Comment on above: Performed By: #### C BC #### [facility] [address] [place] [address] Dr. Kaylene Montoya Erythrocyte distribution width (RBC) [Ratio] 18.2 % Critically high 11.0-15.0 [facility] Comment on above: Performed By: #### C BC #### [facility] [address] [place] [address] Dr. Kaylene Montoya Hematocrit (Bld) [Volume fraction] 35.8 % Critically low 42.0-54.0 [facility] Comment on above: Performed By: #### C BC #### [facility] [address] [place] [address] Dr. Kaylene Montoya Hemoglobin (Bld) [Mass/Vol] 11.7 g/dL Critically low 14.0-18.0 [facility] Comment on above: Performed By: #### C BC #### [facility] [address] [place] [address] Dr. Kaylene Montoya IG # 0.04 10e3/ul Critically high 0.00-0.03 [facility] Comment on above: Performed By: #### C BC #### [facility] [address] [place] [address] Dr. Kaylene Montoya IG % 0.6 % Critically high 0.0-0.5 [facility] Comment on above: Performed By: #### C BC #### [facility] [address] [place] [address] Dr. Kaylene Montoya LYMPH # 1.2 103/ul Normal 1.2-3.8 [facility] Comment on above: Performed By: #### C BC #### [facility] [address] [place] [address] Dr. Kaylene Montoya Lymphocytes/100 WBC (Bld) 17.8 % Critically low 20.5-60.0 [facility] Comment on above: Performed By: #### C BC #### [facility] [address] [place] [address] Dr. Kaylene Montoya MANUAL DIFF REQ NO Normal [facility] Comment on above: Performed By: #### C BC #### [facility] [address] [address] [address] Kaylene Montoya MCH (RBC) [Entitic mass] 29.5 pg Normal 25.9-34.0 [facility] Comment on above: Performed By: #### C BC #### [facility] [address] [place] [address] Dr. Kaylene Montoya MCHC (RBC) [Mass/Vol] 32.7 g/dL Normal 29.9-35.2 [facility] Comment on above: Performed By: #### C BC #### [facility] [address] [place] [address] Dr. Kaylene Montoya MCV (RBC) [Entitic vol] 90.4 fL Normal 80.0-94.0 [facility] Comment on above: Performed By: #### C BC #### [facility] [address] [place] [address] Dr. Kaylene Montoya MONO # 0.7 103/ul Normal 0.3-0.8 [facility] Comment on above: Performed By: #### C BC #### [facility] [address] [place] [address] Dr. Kaylene Montoya Monocytes/100 WBC (Bld) 10.5 % Normal 1.7-12.0 [facility] Comment on above: Performed By: #### C BC #### [facility] [address] [place] [address] Dr. Kaylene Montoya NEUT # 4.8 103/ul Normal 1.4-6.5 [facility] Comment on above: Performed By: #### C BC #### [facility] [address] [place] [address] Dr. Kaylene Montoya Neutrophils/100 WBC (Bld) 69.0 % Normal 43.0-75.0 [facility] Comment on above: Performed By: #### C BC #### [facility] [address] [place] [address] Dr. Kaylene Montoya Platelet mean volume (Bld) [Entitic vol] 10.5 fL Normal 9.5-13.5 [facility] Comment on above: Performed By: #### C BC #### [facility] [address] [address] [address] Kaylene Montoya PLT 130 103/ul Critically low 150-450 [facility] Comment on above: Performed By: #### C BC #### [facility] [address] [address] [address] Kaylene Montoya RBC 3.96 106/ul Critically low 4.70-6.10 [facility] Comment on above: Performed By: #### C BC #### [facility] [address] [address] [address] Kaylene Montoya WBC 6.9 103/ul Normal 4.0-11.0 [facility] Comment on above: Performed By: #### C BC #### [facility] [address] [place] [address] CSPINE WO CONon CT CSPINE WO CON EXAMINATION: CT CSPI NE WO CON HISTORY: Unspecified fall COMPARISON: None. TECHNIQUE: CT Cervical spine without IV contrast. Coronal and sagittal reformations were performed. Dose reduction techniques were achieved by using automated exposure control and/or adjustment of mA and/or kV according to patient size and/or use of iterative reconstruction technique. FINDINGS: There is no evidence for spondylolisthesis or fracture in the cervical spine. Degenerative disc disease is seen between C3 and T1. No evidence for epidural hematoma or prevertebral soft tissue swelling. Degenerative facet arthrosis and uncovertebral spurring resulting in left-sided foraminal stenosis C3-C4 and C4-C5. IMPRESSION: No traumatic spondylolisthesis or fracture in cervical spine. Electronically authenticated by: MARLENE CASEY Date: 2022-09-24 18:57 Normal [facility] CT HEAD WO CONon 09-24-2022 CT HEAD WO CON NONCONTRAST CT SCAN OF THE HEAD CT HEAD WO CON HISTORY:: Unspecified fall in 82-year-old male TECHNIQUE: Multiple axial images are taken from the level the vertex down to the base of the skull without the use of IV contrast. Images were then reconstructed in the sagittal and coronal planes. This exam was performed according to our departmental dose-optimization program which includes use of Automated Exposure Control, adjustment of the mA and/or kV according to patient size and/or use of iterative reconstruction technique. COMPARISON: 03/16/2021 CT head FINDINGS: Brain Parenchyma: There is global, diffuse atrophy with periventricular decreased white matter attenuation. No intracranial mass. No intracranial hemorrhage. Posterior fossa: Normal. Midline shift: None Extra-axial fluid collection: None Ventricles: Normal. Mastoid air cells: Normal. Sinuses: Normal. Cranium: No depressed skull fracture. Soft tissues: Normal. Orbits: Orbits demonstrate postoperative changes from prior cataract resection with prosthetic lens implant. IMPRESSION: 1. Chronic small vessel ischemic change. 2. Otherwise, no CT evidence for acute pathology. 3. If symptoms continue, MRI may help better delineate. Electronically authenticated by: MARCIA PIERRE Date: 2022-09-24 18:50 Normal [facility] ER URINE PROFILEon 3 Bilirubin Ql (U) Negative Normal NEGATIVE [facility] Comment on above: Performed By: #### P TT, PT #### [facility] [address] [place] [address] Dr. Kaylene Montoya Clarity (U) CLEAR Normal CLEAR [facility] Comment on above: Performed By: #### P TT, PT #### [facility] [address] [place] [address] Dr. Kaylene Montoya Color (U) LT. YELLOW Normal YELLOW [facility] Comment on above: Performed By: #### P TT, PT #### [facility] [address] [place] [address] Dr. Kaylene Montoya ERUAHD A micrscopic examina tion will be performed if indicated. Normal [facility] Comment on above: Performed By: #### P TT, PT #### [facility] [address] [place] [address] Dr. Kaylene Montoya Glucose Ql (U) Negative Normal NEGATIVE [facility] Comment on above: Performed By: #### P TT, PT #### [facility] [address] [place] [address] Dr. Kaylene Montoya Hemoglobin Ql (U) Negative Normal NEGATIVE [facility] Comment on above: Performed By: #### P TT, PT #### [facility] [address] [place] [address] Dr. Kaylene Montoya Ketones Ql (U) TRACE Abnormal NEGATIVE [facility] Comment on above: Performed By: #### P TT, PT #### [facility] [address] [place] [address] Dr. Kaylene Montoya LEUKOCYTES Negative Normal NEGATIVE [facility] Comment on above: Performed By: #### P TT, PT #### [facility] [address] [place] [address] Dr. Kaylene Montoya Nitrite Ql (U) Negative Normal NEGATIVE [facility] Comment on above: Performed By: #### P TT, PT #### [facility] [address] [place] [address] Dr. Kaylene Montoya pH (U) 6.0 [pH] Normal 5-9 [facility] Comment on above: Performed By: #### P TT, PT #### [facility] [address] [place] [address] Dr. Kaylene Montoya Protein (U) [Mass/Vol] 30 mg/dL Abnormal NEGAT TOMAS/ TRACE [facility] Comment on above: Performed By: #### P TT, PT #### [facility] [address] [place] [address] Dr. Kaylene Montoya SPEC GRAVITY 1.020 Normal 1.005-<=1. 025 [facility] Comment on above: Performed By: #### P TT, PT #### [facility] [address] [place] [address] Dr. Kaylene Montoya UR MICRO IND NOT INDICATED Normal [facility] Comment on above: Performed By: #### P TT, PT #### [facility] [address] [place] [address] Dr. Kaylene Montoya Urobilinogen Qn (U) 0.2 {Mary Kate'U}/dL Normal 0.2 - 1. 0 [facility] Comment on above: Performed By: #### P TT, PT #### [facility] [address] [place] [address] Dr. Kaylene Montoya PROF 14(COMP METB)on 023 Albumin [Mass/Vol] 3.2 g/dL Critically low 3.4-5.0 [facility] Comment on above: Performed By: #### C JAZMINE, HSTROPN #### [facility] [address] [address] [address] Kaylene Montoya Albumin/Globulin [Mass ratio] 1.1 {ratio} Normal [facility] Comment on above: Performed By: #### C JAZMINE, HSTROPN #### [facility] [address] [address] [address] Kaylene Montoya ALP [Catalytic activity/Vol] 109 U/L Normal 46-116 [facility] Comment on above: Performed By: #### C JAZMINE, HSTROPN #### [facility] [address] [place] [address] Dr. Kaylene Montoya ALT [Catalytic activity/Vol] 21 U/L Normal 16-63 [facility] Comment on above: Performed By: #### C JAZMINE, HSTROPN #### [facility] [address] [place] [address] Dr. Kaylene Montoya Anion gap [Moles/Vol] 8.4 mmol/L Normal [facility] Comment on above: Performed By: #### C JAZMINE, HSTROPN #### [facility] [address] [place] [address] Dr. Kaylene Montoya AST [Catalytic activity/Vol] 40 U/L Critically high 15-37 [facility] Comment on above: Performed By: #### C JAZMINE, HSTROPN #### [facility] [address] [place] [address] Dr. Kaylene Montoya Bilirubin [Mass/Vol] 0.7 mg/dL Normal 0.2-1.0 [facility] Comment on above: Performed By: #### C JAZMINE, HSTROPN #### [facility] [address] [place] [address] Dr. Kaylene Montoya Calcium [Mass/Vol] 8.7 mg/dL Normal 8.5-10.1 [facility] Comment on above: Performed By: #### C JAZMINE, HSTROPN #### [facility] [address] [address] [address] Kaylene Montoya Chloride [Moles/Vol] 104 mmol/L Normal 98-107 [facility] Comment on above: Performed By: #### C MP, HSTROPN #### [facility] [address] [address] [address] Kaylene Montoya CO2 [Moles/Vol] 28.6 mmol/L Normal 21.0-32.0 [facility] Comment on above: Performed By: #### C MP, HSTROPN #### [facility] [address] [address] [address] Kaylene Montoya Creatinine [Mass/Vol] 1.17 mg/dL Normal 0.70-1.30 [facility] Comment on above: Performed By: #### C MP, HSTROPN #### [facility] [address] [address] [address] Kaylene Montoya EGFR-AF CAMBODIAN >60 Normal >=60 [facility] Comment on above: Performed By: #### C MP, HSTROPN #### [facility] [address] [address] [address] Kaylene Montoya EGFR-NON AF CAMBODIAN 59 mL/min/1.73m2 Critically low >=60 [facility] Comment on above: Performed By: #### C MP, HSTROPN #### [facility] [address] [address] [address] Kaylene Montoya Globulin (S) [Mass/Vol] 2.8 g/dL Normal [facility] Comment on above: Performed By: #### C MP, HSTROPN #### [facility] [address] [address] [address] Kaylene Montoya Glucose [Mass/Vol] 105 mg/dL Normal 74-106 [facility] Comment on above: Performed By: #### C MP, HSTROPN #### [facility] [address] [address] [address] Kaylene Montoya Potassium [Moles/Vol] 4.0 mmol/L Normal 3.5-5.1 [facility] Comment on above: Performed By: #### C JAZMINE, HSTROPN #### [facility] [address] [address] [address] Kaylene Montoya Protein [Mass/Vol] 6.0 g/dL Critically low 6.4-8.2 [facility] Comment on above: Performed By: #### C JAZMINE, HSTROPN #### [facility] [address] [place] [address] Dr. Kaylene Montoya Sodium [Moles/Vol] 137 mmol/L Normal 136-145 [facility] Comment on above: Performed By: #### C JAZMINE, HSTROPN #### [facility] [address] [place] [address] Dr. Kaylene Montoya Urea nitrogen [Mass/Vol] 22.0 mg/dL Critically high 7.0-18.0 [facility] Comment on above: Performed By: #### C JAZMINE, HSTROPN #### [facility] [address] [place] [address] Dr. Kaylene Montoya Urea nitrogen/Creatinine [Mass ratio] 18.8 mg/mg Normal [facility] Comment on above: Performed By: #### C JAZMINE, HSTROPN #### [facility] [address] [place] [address] Dr. Kaylene Montoya TROPONIN, HIGH SENSITIVITYon 09-24-2022 HSTROP 18.6 pg/mL Normal 4.0-76.1 [facility] Comment on above: Result Comment: CUT- OFF POINTS HAVE BEEN ESTABLISHED BASED ON THE FOURTH UNIVERSAL DEFINITIONS OF MYOCARDIAL INFARCTION. THE UPPER REFERENCE LIMIT (URL) OF TROPONIN, DEFINED THE 99TH PERCENTILE OF cTnI DISTRIBUTION IN A REFERENCE POPULATION, HAS BEEN CONFIRMED THE DECISION THRESHOLD FOR MD DIAGNOSIS. Performed By: #### C JAZMINE, HSTROPN #### [facility] [address] [place] [address] Dr. Kaylene Montoya XR CHEST 1 Von 09-24-2022 XR CHEST 1 V EXAM: XR CHEST 1 V HISTORY: Unspecified fall COMPARISON: 12/23/2021. TECHNIQUE: Single view. FINDINGS: There is atelectasis or scar right lung base unchanged from prior exam. There is elevation right hemidiaphragm unchanged. Mild cardiomegaly accentuated by the technique. No mediastinal widening or apical capping. No rib fracture identified. IMPRESSION: Chronic elevation right hemidiaphragm with scar or atelectasis at right lung base similar to what was seen on 12/23/2021. No acute findings. Electronically authenticated by: MARLENE CASEY Date: 2022-09-24 18:57 Normal [facility] XR FEMUR RTon 09-24-2022 XR FEMUR RT EXAMINATION: XR HIP RT 2 3V W PELVIS, XR FEMUR RT REASON FOR EXAM: Unspecified fall TECHNIQUE: 3 views pelvis and right hip, 4 views right femur. FINDINGS: No deformity or fracture involving the sacrum or pelvis. The right hip is normally aligned. Very mild osteoarthritis right hip. No avascular necrosis or fracture in the right hip. Femoral shaft is intact. There is atherosclerotic calcification of the femoral arterial distributions. The alignment at the right knee appears normal. No soft tissue gas collection or foreign body. IMPRESSION: No acute fracture identified in the pelvis, right hip or right femur. Electronically authenticated by: MARLENE CASEY Date: 2022-09-24 18:57 Normal [facility] CT ABD/PELV W CONon 09-15-19 CT ABD/PELV W CON EXAMINATION: CT ABD/ PELV W CON HISTORY: Abdominal pain , upper abdominal pain, weight loss COMPARISON: No relevant comparison available. TECHNIQUE: Axial, Coronal, and Sagittal images were obtained without and/or with IV contrast as indicated by examination type. Dose reduction techniques were achieved by using automated exposure control and/or adjustment of mA and/or kV according to patient size and/or use of iterative reconstruction technique. FINDINGS: LUNG BASES: No visible pulmonary or pleural disease. LIVER: No enlargement, atrophy, suspicious density, or significant focal lesion. BILIARY: Wall thickening versus small amount of surrounding free fluid. Suspect noncalcified stones within bladder. PANCREAS: No lesion, fluid collection, or abnormal duct dilatation. SPLEEN: No enlargement or focal lesion. ADRENALS: No mass or enlargement. KIDNEYS: Nonobstructing stone within right kidney. Multiple small and large renal cysts bilaterally, largest is on left, 11.5 cm. BOWEL/MESENTERY: Prior resection and anastomosis proximal ascending colon. No visible mass, obstruction, or bowel wall thickening. AORTA/VASCULAR: No aneurysm or dissection. RETROPERITONEUM: No mass or adenopathy. LYMPH NODES: No adenopathy. URINARY BLADDER: No visible focal wall thickening, lesion, or calculus. PELVIC ORGANS: No visible mass. Pelvic organs appropriate for patient age. ABDOMINAL WALL: No mass or hernia. BONES: Moderate degenerative disc disease and grade 1 anterolisthesis of L4 on 5. OTHER: Negative. IMPRESSION: 1.Acute versus chronic cholecystitis. Further evaluation with ultrasound is recommended. 2.Nonobstructing right nephrolithiasis. Multiple large benign-appearing renal cysts bilaterally. 3. L4-5moderate degenerative disc disease. Electronically authenticated by: USHA FERMIN Date: 2022-09-15 13:39 Normal [facility] CBC AUTO DIFFon 09-05-2022 BASO # 0.0 103/ul Normal 0.0-0.1 [facility] Comment on above: Performed By: #### B MP #### [facility] [address] [address] [address] Kaylene Montoya Basophils/100 WBC (Bld) 0.6 % Normal 0.2-2.0 [facility] Comment on above: Performed By: #### B MP #### [facility] [address] [address] [address] Kaylene Montoya EO # 0.0 103/ul Normal 0.0-0.7 [facility] Comment on above: Performed By: #### B MP #### [facility] [address] [address] [address] Kaylene Montoya Eosinophils/100 WBC (Bld) 0.3 % Critically low 0.9-7.0 [facility] Comment on above: Performed By: #### B MP #### [facility] [address] [address] [address] Kaylene Montoya Erythrocyte distribution width (RBC) [Ratio] 15.9 % Critically high 11.0-15.0 [facility] Comment on above: Performed By: #### B MP #### [facility] [address] [address] [address] Kaylene Montoya Hematocrit (Bld) [Volume fraction] 45.6 % Normal 42.0-54.0 [facility] Comment on above: Performed By: #### B MP #### [facility] [address] [address] [address] Kaylene Montoya Hemoglobin (Bld) [Mass/Vol] 14.2 g/dL Normal 14.0-18.0 [facility] Comment on above: Performed By: #### B MP #### [facility] [address] [address] [address] Kaylene Montoya IG # 0.02 10e3/ul Normal 0.00-0.03 [facility] Comment on above: Performed By: #### B MP #### [facility] [address] [place] [address] Dr. Kaylene Montoya IG % 0.3 % Normal 0.0-0.5 [facility] Comment on above: Performed By: #### B MP #### [facility] [address] [place] [address] Dr. Kaylene Montoya LYMPH # 1.3 103/ul Normal 1.2-3.8 [facility] Comment on above: Performed By: #### B MP #### [facility] [address] [place] [address] Dr. Kaylene Montoya Lymphocytes/100 WBC (Bld) 18.8 % Critically low 20.5-60.0 [facility] Comment on above: Performed By: #### B MP #### [facility] [address] [place] [address] Dr. Kaylene Montoya MANUAL DIFF REQ NO Normal [facility] Comment on above: Performed By: #### B MP #### [facility] [address] [place] [address] Dr. Kaylene Montoya MCH (RBC) [Entitic mass] 29.2 pg Normal 25.9-34.0 [facility] Comment on above: Performed By: #### B MP #### [facility] [address] [place] [address] Dr. Kaylene Montoya MCHC (RBC) [Mass/Vol] 31.1 g/dL Normal 29.9-35.2 [facility] Comment on above: Performed By: #### B MP #### [facility] [address] [address] [address] Kaylene Montoya MCV (RBC) [Entitic vol] 93.6 fL Normal 80.0-94.0 [facility] Comment on above: Performed By: #### B MP #### [facility] [address] [address] [address] Kaylene Montoya MONO # 0.7 103/ul Normal 0.3-0.8 [facility] Comment on above: Performed By: #### B MP #### [facility] [address] [address] [address] Kaylene Montoya Monocytes/100 WBC (Bld) 9.8 % Normal 1.7-12.0 [facility] Comment on above: Performed By: #### B MP #### [facility] [address] [place] [address] Dr. Kaylene Montoya NEUT # 4.9 103/ul Normal 1.4-6.5 [facility] Comment on above: Performed By: #### B MP #### [facility] [address] [place] [address] Dr. Kaylene Montoya Neutrophils/100 WBC (Bld) 70.2 % Normal 43.0-75.0 [facility] Comment on above: Performed By: #### B MP #### [facility] [address] [place] [address] Dr. Kaylene Montoya Platelet mean volume (Bld) [Entitic vol] 10.6 fL Normal 9.5-13.5 [facility] Comment on above: Performed By: #### B MP #### [facility] [address] [place] [address] Dr. Kaylene Montoya PLT 168 103/ul Normal 150-450 [facility] Comment on above: Performed By: #### B MP #### [facility] [address] [place] [address] Dr. Kaylene Montoya RBC 4.87 106/ul Normal 4.70-6.10 [facility] Comment on above: Performed By: #### B MP #### [facility] [address] [place] [address] Dr. Kaylene Montoya WBC 6.9 103/ul Normal 4.0-11.0 [facility] Comment on above: Performed By: #### B MP #### [facility] [address] [place] [address] Dr. Kaylene Montoya FREE T3on 09-05-2022 FREE T3 1.37 pg/mlL Critically low 2.18-3.98 [facility] Comment on above: Performed By: #### P TT, PT #### [facility] [address] [place] [address] Dr. Kaylene Montoya FREE T4on 09-05-2022 Free T4 [Mass/Vol] 1.13 ng/dL Normal 0.76-1.46 [facility] Comment on above: Performed By: #### F T4 #### [facility] [address] [place] [address] Dr. Kaylene Montoya PROF 14(COMP METB)on 023 Albumin [Mass/Vol] 3.9 g/dL Normal 3.4-5.0 [facility] Comment on above: Performed By: #### P TT, PT #### [facility] [address] [place] [address] Dr. Kaylene Montoya Albumin/Globulin [Mass ratio] 1.3 {ratio} Normal [facility] Comment on above: Performed By: #### P TT, PT #### [facility] [address] [place] [address] Dr. Kaylene Montoya ALP [Catalytic activity/Vol] 81 U/L Normal 46-116 [facility] Comment on above: Performed By: #### P TT, PT #### [facility] [address] [place] [address] Dr. Kaylene Montoya ALT [Catalytic activity/Vol] 10 U/L Critically low 16-63 [facility] Comment on above: Performed By: #### P TT, PT #### [facility] [address] [place] [address] Dr. Kaylene Montoya Anion gap [Moles/Vol] 10.7 mmol/L Normal [facility] Comment on above: Performed By: #### P TT, PT #### [facility] [address] [address] [address] Kaylene Montoya AST [Catalytic activity/Vol] 16 U/L Normal 15-37 [facility] Comment on above: Performed By: #### P TT, PT #### [facility] [address] [address] [address] Kaylene Montoya Bilirubin [Mass/Vol] 0.8 mg/dL Normal 0.2-1.0 [facility] Comment on above: Performed By: #### P TT, PT #### [facility] [address] [address] [address] Kaylene Montoya Calcium [Mass/Vol] 9.4 mg/dL Normal 8.5-10.1 [facility] Comment on above: Performed By: #### P TT, PT #### [facility] [address] [place] [address] Dr. Kaylene Montoya Chloride [Moles/Vol] 100 mmol/L Normal 98-107 [facility] Comment on above: Performed By: #### P TT, PT #### [facility] [address] [place] [address] Dr. Kaylene Montoya CO2 [Moles/Vol] 31.6 mmol/L Normal 21.0-32.0 [facility] Comment on above: Performed By: #### P TT, PT #### [facility] [address] [place] [address] Dr. Kaylene Montoya Creatinine [Mass/Vol] 1.02 mg/dL Normal 0.70-1.30 [facility] Comment on above: Performed By: #### P TT, PT #### [facility] [address] [place] [address] Dr. Kaylene Montoya EGFR-AF CAMBODIAN >60 Normal >=60 [facility] Comment on above: Performed By: #### P TT, PT #### [facility] [address] [address] [address] Kaylene Montoya EGFR-NON AF CAMBODIAN >60 Normal >=60 [facility] Comment on above: Performed By: #### P TT, PT #### [facility] [address] [address] [address] Kaylene Montoya Globulin (S) [Mass/Vol] 3.0 g/dL Normal [facility] Comment on above: Performed By: #### P TT, PT #### [facility] [address] [address] [address] Kaylene Montoya Glucose [Mass/Vol] 84 mg/dL Normal 74-106 [facility] Comment on above: Performed By: #### P TT, PT #### [facility] [address] [place] [address] Dr. Kaylene Montoya Potassium [Moles/Vol] 4.3 mmol/L Normal 3.5-5.1 [facility] Comment on above: Performed By: #### P TT, PT #### [facility] [address] [place] [address] Dr. Kaylene Montoya Protein [Mass/Vol] 6.9 g/dL Normal 6.4-8.2 [facility] Comment on above: Performed By: #### P TT, PT #### [facility] [address] [place] [address] Dr. Kaylene Montoya Sodium [Moles/Vol] 138 mmol/L Normal 136-145 [facility] Comment on above: Performed By: #### P TT, PT #### [facility] [address] [place] [address] Dr. Kaylene Montoya Urea nitrogen [Mass/Vol] 21.0 mg/dL Critically high 7.0-18.0 [facility] Comment on above: Performed By: #### P TT, PT #### [facility] [address] [place] [address] Dr. Kaylene Montoya Urea nitrogen/Creatinine [Mass ratio] 20.6 mg/mg Normal [facility] Comment on above: Performed By: #### P TT, PT #### [facility] [address] [place] [address] Dr. Kaylene Montoya TSHon 09-05-2022 TSH 1.427 uIU/mL Normal 0.358-3.74 0 [facility] Comment on above: Performed By: #### P TT, PT #### [facility] [address] [place] [address] Dr. Kaylene Montoya Covid-19 PCR ([facility])on 06-30 SARS-CoV-2 (COVID-19) RNA RENU+probe Ql (Unsp spec) Not detected Normal NOT DETECTED [facility] Comment on above: Result Comment: This test is not yet approved or cleared by the [place] FDA. When there are no FDA-approved or cleared tests available, and other criteria are met, FDA can make tests available under an emergency access mechanism called an Emergency Use Authorization (EUA). The EUA for this test is supported by the [place] of Health and Human Service's (HHS's) declaration that circumstances exist to justify the emergency use of in vitro diagnostics for the detection and/or diagnosis of the virus that causes COVID-19. This EUA will remain in effect (meaning this test can be used) for the duration of the COVID-19 declaration justifying emergency of IVDs, unless it is terminated or revoked by FDA (after which the test may no longer be used). When diagnostic testing is negative, the possibility of a false negative should be considered in the context of a patient's recent exposures and the presence of clinical signs and symptoms consistent with SARS-CoV-2. Performed By: #### F T4 #### [facility] [address] [place] [address] Dr. Kaylene Montoya INFLUENZA A AND B AGon 07-18 [facility] SEE BELOW Normal [facility] Comment on above: Result Comment: Nega tive for Flu A protein angiten. Infection due to Flu A cannot be ruled out. Flu A angiten in the sample may be below the detection limit of the test. Performed By: #### F T4 #### [facility] [address] [place] [address] Dr. [facility] Normal [facility] Comment on above: Result Comment: Nega tive for Flu B protein antigen. Infection due to Flu B cannot be ruled out. Flu B antigen in the sample may be below the detection limit of the test. Performed By: #### F T4 #### [facility] [address] [address] [address] Kaylene Montoya INFLUENZA A AG Negative Normal NEGATIVE SEE COMMENT [facility] Comment on above: Performed By: #### F T4 #### [facility] [address] [address] [address] Kaylene Montoya INFLUENZA B AG Negative Normal NEGATIVE SEE COMMENT [facility] Comment on above: Performed By: #### F T4 #### [facility] [address] [place] [address] Dr. Kaylene Montoya INTERNAL CONTROLS Within Normal Limits Normal Wi thin Normal Limits [facility] Comment on above: Performed By: #### F T4 #### [facility] [address] [place] [address] Dr. Kaylene Montoya Office Visit (Cardiology)on 02-24-2022 Follow-up visit Diagnoses/Problems Assessed Paroxysmal atrial fibrillation (427.31) (I48.0) Anticoagulated (V58.61) (Z79.01) Former smoker (V15.82) (Z87.891) Body mass index (BMI) of 24.0 to 24.9 in adult (V85.1) (Z68.24) Orders Paroxysmal atrial fibrillation Renew: Aspirin EC 81 MG Oral Tablet Delayed Release; 1 tablet twice weekly SocHx: Former smoker Tobacco Use Screening; Status:Complete; Done: [id number] Patient Instructions Please bring all medicines, vitamins, and herbal supplements with you when you come to the office. Prescriptions will not be filled unless you are compliant with your follow up appointments or have a follow up appointment scheduled as per instruction of your physician. Refills should be requested at the time of your visit. Patient provided Falls Prevention education sheet. Follow up in 6 months To call regarding medications, statin? Katt Fernando LPN, am scribing for and in the presence of, Dr. Edel Cesar MD Chief Complaint MAGDALENO VALDERRAMA is being seen for a 3 month follow-up of. History of Present Illness Patient is here for follow-up continue management for recent evaluation for palpitation and arrhythmia and concern about atrial fibrillation. I did place him on Eliquis because of his previous CT scan showing cerebrovascular disease. His Holter monitor showed frequent PACs but episodes of atrial fibrillation also were observed. The patient is a 51. He appears to have very poor short-term memory. Does not recall his medication. He reports his has cancer and she is at home. He denies chest pain, palpitation, lightheadedness, dizziness or syncope. He denies any change in cardiac status or symptoms. Most recent echocardiogram noted and reviewed with him. Assessment 1. paroxysmal atrial fibrillation documented based on recent Holter monitor 2. Parkinson disease 3. 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 Hypothyroidism on replacement therapy 5. Abnormal echocardiogram moderate to severe left atrial dilatation and mild to moderate mitral regurgitation but preserved LV systolic function 6. Hyperlipidemia on atorvastatin Plan 1. I recommended patient to i continue present medical therapy, risk, benefits alternative anticoagulation reviewed with patient he understood and agreed 2. I reviewed the results of his Holter monitor with him 3. Patient was advised to notify me with change in cardiac status or symptoms 0.4. We will try to retrieve his recent ER visit 4. I reviewed with patient his available record 5. I will see him back in the office in 6 months Current Meds Medication NameInstruction Aspirin EC 81 MG Oral Tablet Delayed Release1 tablet twice weekly Atorvastatin Calcium 20 MG Oral TabletTAKE 1 TABLET AT BEDTIME. Carbidopa-Levodopa 25-100 MG Oral TabletTAKE 2 TABS BY MOUTH AT 6AM,1 TAB AT 10AM,1 TAB AT 2PM,2 TABS AT 6PM clonazePAM 0.5 MG Oral TabletTAKE 1 TABLET Bedtime PRN Eliquis 5 MG Oral TabletTake 1 tablet twice daily Entacapone 200 MG Oral TabletTAKE 1 TABLET 3 TIMES DAILY. Levothyroxine Sodium 100 MCG Oral TabletTAKE 1 TABLET BY MOUTH ONCE DAILY, TAKE 1/2 TABLET ON MONDAYS PreserVision AREDS [place] DIRECTED. Rasagiline Mesylate 1 MG Oral TabletTAKE 1 TABLET DAILY. Vitamin B12 1000 MCG Oral Tablet Extended ReleaseTAKE 1 TABLET DAILY DIRECTED. Vitamin D3 50 MCG (1999 [place]) Oral TabletTake 1 tablet daily Allergies Medication Neosporin OINT Adverse Reaction; Blisters; Recorded By: Josy Urbina; 10/08/2021 10:33:29 AM Social History Problems Daily caffeine consumption, 2-3 servings a day Former smoker (V15.82) (Z87.991) No alcohol use No illicit drug use Review of Systems Constitutional: not feeling tired. Cardiovascular: no intermittent leg claudication and as noted in HPI. Respiratory: shortness of breath, but no cough. Gastrointestinal: no change in bowel habits and no blood in stools. Integumentary: no skin rashes. Neurological: no seizures and no frequent falls . Poor memory. All other systems have been reviewed and are negative for complaint. Vitals Vital Signs Recorded: 24Feb2022 09:10AM Heart Rate60, L Radial Ecwgadxi613, LUE, Sitting Swnfpgepo69, LUE, Sitting Height5 ft 8 in Ggajgu943 lb BMI Yowtfkyfeq29.63 kg/m2 BSA Calculated1.87 Tobacco Useb) No Falls Screening (Age 18+)b) One or more falls in the last year Physical Exam Constitutional: alert and in no acute distress. Neck: neck is supple, symmetric, trachea midline, no masses and no thyromegaly . Pulmonary: no increased work of breathing or signs of respiratory distress and lungs clear to auscultation. Cardiovascular: carotid pulses 2+ bilaterally with no bruit , JVP was normal, no thrills , regular rhythm, normal S1 and S2, no murmurs , pedal pulses 2+ bilaterally and no edema . Abdomen: abdomen non-tender, no masses and no hepatomegaly . Skin: skin warm and dry, normal skin turgor . Psychiatric judgment and insight i (more content not included)... Normal [employer] Tobacco Screening.on Fall risk assessment b) One or more fall s in the last year [facility] [employer] [address] DO Work Phone: Tobacco use status [facility] b) No [facility] [facility] [employer] [address] DO Work Phone: BNPon 12-23-2021 Natriuretic peptide B (Bld) [Mass/Vol] 641.0 pg/mL Normal <=1,800.0 [facility] Comment on above: Performed By: #### F T4 #### [facility] [address] [address] [address] Kaylene Montoya CARDIAC CRISTIAN ADMITon CK [Catalytic activity/Vol] 65 U/L Normal 39-308 [facility] Comment on above: Performed By: #### F T4 #### [facility] [address] [address] [address] Kaylene Montoya CK.MB [Mass/Vol] 2.20 ng/mL Normal <=3.60 [facility] Comment on above: Performed By: #### F T4 #### [facility] [address] [place] [address] Dr. Kaylene Montoya HSTROP 13.9 pg/mL Normal 4.0-76.1 [facility] Comment on above: Result Comment: CUT- OFF POINTS HAVE BEEN ESTABLISHED BASED ON THE FOURTH UNIVERSAL DEFINITIONS OF MYOCARDIAL INFARCTION. THE UPPER REFERENCE LIMIT (URL) OF TROPONIN, DEFINED THE 99TH PERCENTILE OF cTnI DISTRIBUTION IN A REFERENCE POPULATION, HAS BEEN CONFIRMED THE DECISION THRESHOLD FOR MD DIAGNOSIS. Performed By: #### F T4 #### [facility] [address] [place] [address] Dr. Kaylene Montoya LEOPOLDO 83 ng/mL Normal 16-96 [facility] Comment on above: Performed By: #### F T4 #### [facility] [address] [place] [address] Dr. Kaylene Montoya CBC AUTO DIFFon 12-23-2021 BASO # 0.0 103/ul Normal 0.0-0.1 [facility] Comment on above: Performed By: #### L ACT #### [facility] [address] [place] [address] Dr. Kaylene Montoya Basophils/100 WBC (Bld) 0.4 % Normal 0.2-2.0 [facility] Comment on above: Performed By: #### L ACT #### [facility] [address] [place] [address] Dr. Kaylene Montoya EO # 0.2 103/ul Normal 0.0-0.7 [facility] Comment on above: Performed By: #### L ACT #### [facility] [address] [place] [address] Dr. Kaylene Montoya Eosinophils/100 WBC (Bld) 2.9 % Normal 0.9-7.0 [facility] Comment on above: Performed By: #### L ACT #### [facility] [address] [place] [address] Dr. Kaylene Montoya Erythrocyte distribution width (RBC) [Ratio] 14.5 % Normal 11.0-15.0 [facility] Comment on above: Performed By: #### L ACT #### [facility] [address] [place] [address] Dr. Kaylene Montoya Hematocrit (Bld) [Volume fraction] 46.6 % Normal 42.0-54.0 [facility] Comment on above: Performed By: #### L ACT #### [facility] [address] [place] [address] Dr. Kaylene Montoya Hemoglobin (Bld) [Mass/Vol] 15.0 g/dL Normal 14.0-18.0 [facility] Comment on above: Performed By: #### L ACT #### [facility] [address] [place] [address] Dr. Kaylene Montoya IG # 0.06 10e3/ul Critically high 0.00-0.03 [facility] Comment on above: Performed By: #### L ACT #### [facility] [address] [place] [address] Dr. Kaylene Montoya IG % 0.8 % Critically high 0.0-0.5 [facility] Comment on above: Performed By: #### L ACT #### [facility] [address] [place] [address] Dr. Kaylene Montoya LYMPH # 1.1 103/ul Critically low 1.2-3.8 [facility] Comment on above: Performed By: #### L ACT #### [facility] [address] [place] [address] Dr. Kaylene Montoya Lymphocytes/100 WBC (Bld) 14.9 % Critically low 20.5-60.0 [facility] Comment on above: Performed By: #### L ACT #### [facility] [address] [place] [address] Dr. Kaylene Montoya MANUAL DIFF REQ NO Normal [facility] Comment on above: Performed By: #### L ACT #### [facility] [address] [place] [address] Dr. Kaylene Montoya MCH (RBC) [Entitic mass] 29.9 pg Normal 25.9-34.0 [facility] Comment on above: Performed By: #### L ACT #### [facility] [address] [address] [address] Kaylene Montoya MCHC (RBC) [Mass/Vol] 32.2 g/dL Normal 29.9-35.2 [facility] Comment on above: Performed By: #### L ACT #### [facility] [address] [address] [address] Kaylene Montoya MCV (RBC) [Entitic vol] 93.0 fL Normal 80.0-94.0 [facility] Comment on above: Performed By: #### L ACT #### [facility] [address] [address] [address] Kaylene Montoya MONO # 1.3 103/ul Critically high 0.3-0.8 [facility] Comment on above: Performed By: #### L ACT #### [facility] [address] [address] [address] Kaylene Montoya Monocytes/100 WBC (Bld) 16.5 % Critically high 1.7-12.0 [facility] Comment on above: Performed By: #### L ACT #### [facility] [address] [address] [address] Kaylene Montoya NEUT # 4.9 103/ul Normal 1.4-6.5 [facility] Comment on above: Performed By: #### L ACT #### [facility] [address] [address] [address] Kaylene Montoya Neutrophils/100 WBC (Bld) 64.5 % Normal 43.0-75.0 [facility] Comment on above: Performed By: #### L ACT #### [facility] [address] [address] [address] Kaylene Montoya Platelet mean volume (Bld) [Entitic vol] 9.8 fL Normal 9.5-13.5 [facility] Comment on above: Performed By: #### L ACT #### [facility] [address] [address] [address] Kaylene Montoya PLT 171 103/ul Normal 150-450 [facility] Comment on above: Performed By: #### L ACT #### [facility] [address] [place] [address] Dr. Kaylene Montoya RBC 5.01 106/ul Normal 4.70-6.10 [facility] Comment on above: Performed By: #### L ACT #### [facility] [address] [place] [address] Dr. Kaylene Montoya WBC 7.7 103/ul Normal 4.0-11.0 [facility] Comment on above: Performed By: #### L ACT #### [facility] [address] [place] [address] Dr. Kaylene Montoya LACTATE/LACTIC ACIDon 2021 Lactate [Moles/Vol] 0.8 mmol/L Normal 0.4-1.9 [facility] Comment on above: Performed By: #### L ACT #### [facility] [address] [place] [address] Dr. Kaylene Montoya PROF 14(COMP METB)on 022 Albumin [Mass/Vol] 3.8 g/dL Normal 3.4-5.0 [facility] Comment on above: Performed By: #### F T4 #### [facility] [address] [place] [address] Dr. Kaylene Montoya Albumin/Globulin [Mass ratio] 1.0 {ratio} Normal [facility] Comment on above: Performed By: #### F T4 #### [facility] [address] [place] [address] Dr. Kaylene Montoya ALP [Catalytic activity/Vol] 109 U/L Normal 46-116 [facility] Comment on above: Performed By: #### F T4 #### [facility] [address] [place] [address] Dr. Kaylene Montoya ALT [Catalytic activity/Vol] 7 U/L Critically low 16-63 [facility] Comment on above: Performed By: #### F T4 #### [facility] [address] [place] [address] Dr. Kaylene Montoya Anion gap [Moles/Vol] 9.6 mmol/L Normal [facility] Comment on above: Performed By: #### F T4 #### [facility] [address] [address] [address] Kaylene Montoya AST [Catalytic activity/Vol] 14 U/L Critically low 15-37 [facility] Comment on above: Performed By: #### F T4 #### [facility] [address] [address] [address] Kaylene Montoya Bilirubin [Mass/Vol] 0.7 mg/dL Normal 0.2-1.0 [facility] Comment on above: Performed By: #### F T4 #### [facility] [address] [address] [address] Kaylene Montoya Calcium [Mass/Vol] 9.2 mg/dL Normal 8.5-10.1 [facility] Comment on above: Performed By: #### F T4 #### [facility] [address] [place] [address] Dr. Kaylene Montoya Chloride [Moles/Vol] 104 mmol/L Normal 98-107 [facility] Comment on above: Performed By: #### F T4 #### [facility] [address] [place] [address] Dr. Kaylene Montoya CO2 [Moles/Vol] 31.6 mmol/L Normal 21.0-32.0 [facility] Comment on above: Performed By: #### F T4 #### [facility] [address] [place] [address] Dr. Kaylene Montoya Creatinine [Mass/Vol] 1.05 mg/dL Normal 0.70-1.30 [facility] Comment on above: Performed By: #### F T4 #### [facility] [address] [place] [address] Dr. Kaylene Montoya EGFR-AF CAMBODIAN >60 Normal >=60 [facility] Comment on above: Performed By: #### F T4 #### [facility] [address] [place] [address] Dr. Kaylene Montoya EGFR-NON AF CAMBODIAN >60 Normal >=60 [facility] Comment on above: Performed By: #### F T4 #### [facility] [address] [place] [address] Dr. Kaylene Montoya Globulin (S) [Mass/Vol] 3.7 g/dL Normal [facility] Comment on above: Performed By: #### F T4 #### [facility] [address] [address] [address] Kaylene Montoya Glucose [Mass/Vol] 97 mg/dL Normal 74-106 [facility] Comment on above: Performed By: #### F T4 #### [facility] [address] [address] [address] Kaylene Montoya Potassium [Moles/Vol] 4.2 mmol/L Normal 3.5-5.1 [facility] Comment on above: Performed By: #### F T4 #### [facility] [address] [address] [address] Kaylene Montoya Protein [Mass/Vol] 7.5 g/dL Normal 6.4-8.2 [facility] Comment on above: Performed By: #### F T4 #### [facility] [address] [address] [address] Kaylene Montoya Sodium [Moles/Vol] 141 mmol/L Normal 136-145 [facility] Comment on above: Performed By: #### F T4 #### [facility] [address] [address] [address] Kaylene Montoya Urea nitrogen [Mass/Vol] 24.0 mg/dL Critically high 7.0-18.0 [facility] Comment on above: Performed By: #### F T4 #### [facility] [address] [address] [address] Kaylene Montoya Urea nitrogen/Creatinine [Mass ratio] 22.9 mg/mg Normal [facility] Comment on above: Performed By: #### F T4 #### [facility] [address] [place] [address] Dr. Kaylene Montoya PROTIMEon 12-23-2021 INR Coag (PPP) [Relative time] 1.13 {INR} Normal [facility] Comment on above: Performed By: #### P TT, PT #### [facility] [address] [place] [address] Dr. Kaylene Montoya INR GUIDELINES SEE BELOW Normal [facility] Comment on above: Result Comment: JOSE RED INR: 2.0 - 3.0 CONDITIONS NOT LISTED BELOW 2.5 - 3.5 FOR PROSTHETIC HEART VALVE REPLACEMENT 2.5 - 3.5 RECURRENT THROMBOSIS Performed By: #### P TT, PT #### [facility] [address] [place] [address] Dr. Kaylene Montoya PT Coag (PPP) [Time] 12.1 s Critically high 9.0-11.6 [facility] Comment on above: Performed By: #### P TT, PT #### [facility] [address] [address] [address] Kaylene Montoya PTTon 12-23-2021 aPTT Coag (Bld) [Time] 33.4 s Normal 22.3-36.2 [facility] Comment on above: Performed By: #### P TT, PT #### [facility] [address] [place] [address] Dr. Kaylene Montoya TROPONIN, HIGH SENSITIVITYon 12-23-2021 HSTROP 11.0 pg/mL Normal 4.0-76.1 [facility] Comment on above: Result Comment: CUT- OFF POINTS HAVE BEEN ESTABLISHED BASED ON THE FOURTH UNIVERSAL DEFINITIONS OF MYOCARDIAL INFARCTION. THE UPPER REFERENCE LIMIT (URL) OF TROPONIN, DEFINED THE 99TH PERCENTILE OF cTnI DISTRIBUTION IN A REFERENCE POPULATION, HAS BEEN CONFIRMED THE DECISION THRESHOLD FOR MD DIAGNOSIS. Performed By: #### F T4 #### [facility] [address] [place] [address] Dr. Kaylene Montoya XR CHEST 1 Von 12-23-2021 XR CHEST 1 V EXAM: Portable chest REASON FOR EXAM: Chest pain. TECHNIQUE: A portable frontal view of the chest was obtained. COMPARISON: 03/27/2021. FINDINGS: The lungs are well-inflated and clear. There are stable chronic changes in the right lung base. The heart and mediastinum are stable in appearance. There is no mass or pathologic adenopathy. Osseous structures are normal. IMPRESSION: No definite acute cardiopulmonary process. Electronically authenticated by: JORDAN CHEN Date: 2021-12-23 09:12 Normal [facility] Cardiovasc Arrhythmia Result son 10-13-2021 Cardiovasc Arrhythmia Results Reason For Visit Reason for Visit: Holter Monitor: MAGDALENO is here for the application of a 24 hour Holter monitor. Ordering Physician: Dr. Edel Cesar MD Diagnosis: PAF NO equipment agreement signed. MAGDALENO understands monitor is to be returned on: 10/14/2021 Monitor number [id number] applied. Holter monitor returned and downloaded. holter placed on hmi desk for dicatation in dr saadia dillard. Procedure 1?the rhythm was mostly sinus with an average heart rate of 63 bpm. The slowest heart rate was 37 bpm at 2:40 AM at which time the rhythm was probably sinus rhythm with 2:1 AV conduction. The fastest heart rate was 103 bpm sinus tachycardia at 12:05 PM 2?intermittent first-degree AV block with intermittent Mobitz type I and type II AV block. 3?the longest R-R interval measured 3.7 seconds at 3 AM which was an episode of high-grade AV block. 4?3 isolated PVCs were noted 5?frequent premature atrial complexes were seen. There was 3232 beats. 6?intermittent atrial fibrillation that could not be quantitated. Channel 1 was the lead that has the best visualization of the P wave however, when that channel was lost during the recording it was not easy to visualize the P waves therefore atrial fibrillation could not be ruled out during these times. 7?no diary was returned Conclusion: Abnormal 24-hour Holter monitor. Intermittent atrial fibrillation with controlled rate was noted. First-degree and type I and type II second-degree AV block were noted with one episode of high-grade AV block leading to 3.7-second pause while patient was asleep. Intermittent atrial fibrillation with controlled rate were noted. The percentage of atrial fibrillation could not be determined due to artifact related to the loss of channel 1 which was the only channel where P wave could be visualized. No diary was returned Future Appointments Date/TimeProviderSpecialty Site 12/29/2021 09:40 AMEdel Cesar, [id number] [facility] [address] DO Signatures Electronically signed by : Daphne Tapia MA; Oct 19 2021 4:22PM EST (Author) Electronically signed by : Courtney Fleming MD; Oct 20 2021 5:05PM EST (Author) Normal [facility] Visit (Cardiology)on 10-08-2021 Follow-up visit Diagnoses/Problems Assessed Paroxysmal atrial fibrillation (427.31) (I48.0) Overweight with body mass index (BMI) of 25 to 25.9 in adult (278.02,V85.21) (E66.3,Z68.25) Former smoker (V15.82) (Z87.891) Parkinson disease, symptomatic (332.0) (G20) Abnormal echocardiogram (793.2) (R93.1) Anticoagulated (V58.61) (Z79.01) Orders Overweight with body mass index (BMI) of 25 to 25.9 in adult [employer]; Status:Complete - Retrospective Authorization; Done: 08Oct2021 Paroxysmal atrial fibrillation Start: Aspirin EC 81 MG Oral Tablet Delayed Release; 1 tablet twice weekly Holter Monitor 24-48 Hours; Status:Hold For - Scheduling,Retrospective Authorization; Requested for:08Oct2021; SocHx: Former smoker IO EKG Electrocardiogram- 12 Lead; Status:Complete; Done: 08Oct2021 Tobacco Use Screening; Status:Complete; Done: 08Oct2021 Unlinked Start: Eliquis 5 MG Oral Tablet; Take 1 tablet twice daily Patient Instructions By signing my name below, I, Farshad Black LPNScribe, attest that this documentation has been prepared under the direction and in the presence of Dr. Edel Cesar MD. All medical record entries made by the Scribe were at my direction and personally dictated by me. I have reviewed the chart and agree that the record accurately reflects my personal performance of the history, physical exam, discussion and plan. Please bring all medicines, vitamins, and herbal supplements with you when you come to the office. Prescriptions will not be filled unless you are compliant with your follow up appointments or have a follow up appointment scheduled as per instruction of your physician. Refills should be requested at the time of your visit. Follow up in 4 months Chief Complaint MAGDALENO VALDERRAMA is being seen for a consultation for Tachy. History of Present Illness Patient is here for cardiovascular evaluation for atrial fibrillation and arrhythmia. Patient is 81-year-old with history of Parkinson disease. He reports recently during her visit to the emergency room he was noted to have irregular pulse and was advised to see his PCP and neurologist. He was seen by his neurologist who observed regular pulse and discussed the case with me. The patient admits to limited exercise tolerance due to his Parkinson disease. He denies complaint of chest pain, palpitation, lightheadedness, dizziness or syncope. Reviewing available records suggest the patient had Parkinson disease. 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 His recent echocardiogram showed dilated left atrium. EKG today showed sinus rhythm but significant and frequent premature atrial ectopy and arrhythmia were noted. Clearly his AV at very high risk for atrial fibrillation and complication related to A. fib. His available records including his neurologist evaluation all noted and reviewed with him. Assessment 1. Probable paroxysmal atrial fibrillation based on the review of available record, EKG showing sinus bradycardia with frequent atrial ectopy and the finding of dilated left atria 2. Parkinson disease 3. 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 Hypothyroidism on replacement therapy 5. Abnormal echocardiogram moderate to severe left atrial dilatation and mild to moderate mitral regurgitation but preserved LV systolic function Plan 1. I recommended patient to initiated treatment with Eliquis 5 mg twice daily and to reduce his aspirin to twice weekly. Risk, benefit and alternative anticoagulation reviewed with patient at length 2. We will do 24-hour Holter monitor to assess for bradycardia or tachyarrhythmia 3. Patient was advised to notify me with change in cardiac status or symptoms 0.4. We will try to retrieve his recent ER visit 4. I reviewed with patient his available record 5. We will try to retrieve his lab work and lipid profile. Considering patient had evidence of small vessel disease he does meet the criteria for statin therapy Current Meds Medication NameInstruction Aspirin EC 81 MG Oral Tablet Delayed ReleaseTAKE 1 TABLET DAILY. Carbidopa-Levodopa 25-100 MG Oral TabletTAKE 2 TABS BY MOUTH AT 6AM,1 TAB AT 10AM,1 TAB AT 2PM,2 TABS AT 6PM clonazePAM 0.5 MG Oral TabletTAKE 1 TABLET Bedtime PRN Entacapone 200 MG Oral TabletTAKE 1 TABLET 3 TIMES DAILY. Levothyroxine Sodium 100 MCG Oral TabletTAKE 1 TABLET BY MOUTH ONCE DAILY, TAKE 1/2 TABLET ON MONDAYS PreserVision AREDS CAPSTAKE DIRECTED. Rasagiline Mesylate 1 MG Oral TabletTAKE 1 TABLET DAILY. Vitamin B12 1000 MCG Oral Tablet Extended ReleaseTAKE 1 TABLET DAILY DIRECTED. Vitamin D3 50 MCG (2000 UT) Oral TabletTake 1 tablet daily Allergies Medication Neosporin OINT Adverse Reaction; Blisters; Recorded By: Josy Urbina; 10/08/2021 10:33:29 AM Social History Problems Daily caffeine consumption, 2-3 servings a day Former smoker (V15.82) (Z87.891) No alcohol use No illicit drug use Review of Systems Constitutional: (more content not included)... Normal [facility] Tobacco Screening.on 022 Adult depression screening assessment No [facility] Work Phone: Fall risk assessment b) One or more fall s in the last year [facility] Work Phone: Tobacco use status [facility]PHS b) No [facility] Work Phone: Vital Signs Date Time Vital Sign Value Performing Clinician Facility 07-23-2023 14:00-0500 Body temperature 97.2 [degF] MD Christo Saab Work Phone: [facility] 07-23-2023 14:00-0500 Diastolic blood pressure 76 mm[Hg] MD Christo Saab Work Phone: [facility] 07-23-2023 14:00-0500 Heart rate 70 /min MD Christo Saab Work Phone: [facility] 07-23-2023 14:00-0500 Respiratory rate 16 /min MD Christo Saab Work Phone: [facility] 07-23-2023 14:00-0500 SaO2% (BldA) [Mass fraction] 100 % MD Christo Saab Work Phone: [facility] 07-23-2023 14:00-0500 Systolic blood pressure 131 mm[Hg] MD Christo Saab Work Phone: [facility] 07-23-2023 06:00-0500 Body weight 61 kg MD Christo Saab Work Phone: [facility] 07-21-2023 16:34-0500 Body height 172.72 cm MD Christo Saab Work Phone: [facility] 07-21-2023 16:00-0500 Diastolic blood pressure 68 mm[Hg] MD Christo Saab Work Phone: [facility] 07-21-2023 16:00-0500 Heart rate 69 /min MD Christo Saab Work Phone: [facility] 07-21-2023 16:00-0500 Respiratory rate 16 /min MD Christo Saab Work Phone: [facility] 07-21-2023 16:00-0500 Systolic blood pressure 115 mm[Hg] MD Christo Saab Work Phone: [facility] 07-21-2023 14:30-0500 SaO2% (BldA) [Mass fraction] 99 % MD Christo Saab Work Phone: [facility] 07-21-2023 11:36-0500 Body height 172.72 cm MD Christo Saab Work Phone: [facility] 07-21-2023 11:36-0500 Body weight 58.05 kg MD Christo Saab Work Phone: [facility] 07-21-2023 11:35-0500 Body temperature 97.7 [degF] MD Christo Saab Work Phone: [facility] 07-13-2023 14:30-0500 Body height 172.7 cm [facility] 07-13-2023 14:30-0500 Body mass index (BMI) [Ratio] 21.13 kg/m2 [facility] 07-13-2023 14:30-0500 Body weight 63.05 kg [facility] 07-13-2023 14:30-0500 Diastolic blood pressure 82 mm[Hg] [facility] 07-13-2023 14:30-0500 Heart rate 70 /min [facility] 07-13-2023 14:30-0500 Systolic blood pressure 118 mm[Hg] [facility] 07-05-2023 14:33-0500 Body height 170.2 cm Edel Cesar MD Work Phone: [facility] 07-05-2023 14:33-0500 Body mass index (BMI) [Ratio] 21.61 kg/m2 Edel Cesar MD Work Phone: [facility] 07-05-2023 14:33-0500 Body weight 62.6 kg Edel Cesar MD Work Phone: [facility] 07-05-2023 14:33-0500 Diastolic blood pressure 60 mm[Hg] Edel Cesar MD Work Phone: [facility] 07-05-2023 14:33-0500 Heart rate 60 /min Edel Cesar MD Work Phone: [facility] 07-05-2023 14:33-0500 Systolic blood pressure 122 mm[Hg] Edel Cesar MD Work Phone: [facility] 05-05-2023 10:52-0400 Body temperature 97.11 [degF] Efren Carbajal DO Work Phone: [facility] 05-05-2023 10:52-0400 Body weight 62.6 kg Efren Carbajal DO Work Phone: [facility] 05-05-2023 10:52-0400 Diastolic blood pressure 59 mm[Hg] Efren Carbajal DO Work Phone: [facility] 05-05-2023 10:52-0400 Heart rate 82 /min Efren Carbajal DO Work Phone: [facility] 05-05-2023 10:52-0400 SaO2% (BldA) [Mass fraction] 97 % Efren Carbajal DO Work Phone: [facility] 05-05-2023 10:52-0400 Systolic blood pressure 120 mm[Hg] Efren Carbajal DO Work Phone: [facility] 12-21-2022 15:05-0400 Body height 172.72 cm Amy Julesight Work Phone: [facility] 600 DO Work Phone: 12-21-2022 15:05-0400 Body mass index (BMI) [Ratio] 21.74 kg/m2 Amy Julesight Work Phone: [facility] 600 DO Work Phone: 12-21-2022 15:05-0400 Body surface area Derived from formula 1.77 m2 Amy Zuñiga Work Phone: [facility] 600 DO Work Phone: 12-21-2022 15:05-0400 Body weight 64.86 kg Amy Julesight Work Phone: [facility] 600 DO Work Phone: 12-21-2022 15:05-0400 Diastolic blood pressure 78 mm[Hg] Amy Julesight Work Phone: [facility] 600 DO Work Phone: 12-21-2022 15:05-0400 Heart rate 84 /min Amy Zuñiga Work Phone: [facility] 600 DO Work Phone: 12-21-2022 15:05-0400 Systolic blood pressure 132 mm[Hg] Amy Julesight Work Phone: [facility] 600 DO Work Phone: 11-25-2022 09:59-0400 Body height 172.72 cm Amy Zuñiga Work Phone: [facility] 250 DO Work Phone: 11-25-2022 09:59-0400 Body mass index (BMI) [Ratio] 23.57 kg/m2 Amy Zuñiga Work Phone: [facility] 250 DO Work Phone: 11-25-2022 09:59-0400 Body surface area Derived from formula 1.83 m2 Amy Zuñiga Work Phone: [facility] 250 DO Work Phone: 11-25-2022 09:59-0400 Body weight 70.31 kg Amy Zuñiga Work Phone: [facility] 250 DO Work Phone: 11-25-2022 09:59-0400 Diastolic blood pressure 74 mm[Hg] Amy Zuñiga Work Phone: [facility] 250 DO Work Phone: 11-25-2022 09:59-0400 Heart rate 70 /min Amy Zuñiga Work Phone: [facility] 250 DO Work Phone: 11-25-2022 09:59-0400 Systolic blood pressure 130 mm[Hg] Amy Zuñiga Work Phone: [facility] [employer] 250 DO Work Phone: 10-05-2022 12:45-0500 Body weight 70.53 kg Ayana Missler Other [email or web address] Other 10-05-2022 12:45-0500 Diastolic blood pressure 77 mm[Hg] Ayana Missler Other [email or web address] Other 10-05-2022 12:45-0500 Respiratory rate 18 /min Ayana Missler Other [email or web address] Other 10-05-2022 12:45-0500 SaO2% (BldA) [Mass fraction] 98 % Ayana Missler Other [employer] Other 10-05-2022 12:45-0500 Systolic blood pressure 126 mm[Hg] Ayana Miles Other [employer] Other 10-03-2022 11:49-0500 Body height 172.72 cm Amy Zuñiga Work Phone: [facility] 250 DO Work Phone: 10-03-2022 11:49-0500 Body mass index (BMI) [Ratio] 23.57 kg/m2 Amy Zuñiga Work Phone: [facility] 250 DO Work Phone: 10-03-2022 11:49-0500 Body surface area Derived from formula 1.83 m2 Amy Zuñiga Work Phone: [facility] 250 DO Work Phone: 10-03-2022 11:49-0500 Body temperature 98.7 [degF] Amy Zuñiga Work Phone: [facility] 250 DO Work Phone: 10-03-2022 11:49-0500 Body weight 70.31 kg Amy Zuñiga Work Phone: [facility] 250 DO Work Phone: 10-03-2022 11:49-0500 Diastolic blood pressure 86 mm[Hg] Amy Zuñiga Work Phone: [facility] 250 DO Work Phone: 10-03-2022 11:49-0500 Heart rate 66 /min Amy Zuñiga Work Phone: [facility] 250 DO Work Phone: 10-03-2022 11:49-0500 Systolic blood pressure 146 mm[Hg] Amy Zuñiga Work Phone: [facility] 250 DO Work Phone: 09-27-2022 08:11-0500 Diastolic blood pressure 95 mm[Hg] MD Amy Zuñiga Work Phone: [facility] 09-27-2022 08:11-0500 Heart rate 69 /min MD Amy Zuñiga Work Phone: [facility] 09-27-2022 08:11-0500 Respiratory rate 20 /min MD Amy Zuñiga Work Phone: [facility] 09-27-2022 08:11-0500 SaO2% (BldA) [Mass fraction] 98 % MD Amy Zuñiga Work Phone: [facility] 09-27-2022 08:11-0500 Systolic blood pressure 146 mm[Hg] MD Amy Zuñiga Work Phone: [facility] 09-27-2022 03:00-0500 Body temperature 98.2 [degF] MD Amy Zuñiga Work Phone: [facility] 09-26-2022 15:35-0500 Body height 172.72 cm MD Amy Zuñiga Work Phone: [facility] 09-26-2022 15:35-0500 Body mass index (BMI) [Ratio] 23.1 kg/m2 MD Amy Zuñiga Work Phone: [facility] 09-26-2022 15:35-0500 Body weight 69.1 kg MD Amy Zuñiga Work Phone: [facility] 09-26-2022 00:00-0500 65 1 Cesar Luz Elena Work Phone: [facility] 250 DO Work Phone: Comment on above: [id number] 02-24-2022 09:10-0400 Body height 172.72 cm Cesra Luz Elena Work Phone: [facility] 600 DO Work Phone: 02-24-2022 09:10-0400 Body mass index (BMI) [Ratio] 24.63 kg/m2 Cesar [place] Work Phone: [facility] 600 DO Work Phone: 02-24-2022 09:10-0400 Body surface area Derived from formula 1.87 m2 Cesar [place] Work Phone: [facility] 600 DO Work Phone: 02-24-2022 09:10-0400 Body weight 73.48 kg Cesar Luz Elena Work Phone: [facility] 600 DO Work Phone: 02-24-2022 09:10-0400 Diastolic blood pressure 68 mm[Hg] Cesar [place] Work Phone: [facility] [place] 600 DO Work Phone: 02-24-2022 09:10-0400 Heart rate 60 /min Cesar Luz Elena Work Phone: [facility] 600 DO Work Phone: 02-24-2022 09:10-0400 Systolic blood pressure 108 mm[Hg] Cesar [place] Work Phone: [facility] [place] 600 DO Work Phone: 10-08-2021 10:41-0500 Diastolic blood pressure 70 mm[Hg] Cesar Luz Elena Work Phone: [facility] Work Phone: 10-08-2021 10:41-0500 Systolic blood pressure 142 mm[Hg] Cesar Luz Elena Work Phone: [facility] Work Phone: 10-08-2021 10:35-0500 Body height 172.72 cm Cesar Luz Elena Work Phone: [facility] Work Phone: 10-08-2021 10:35-0500 Body mass index (BMI) [Ratio] 25.54 kg/m2 Cesartata Pérezron Work Phone: [facility] Work Phone: 10-08-2021 10:35-0500 Body surface area Derived from formula 1.9 m2 Cesartata Pérezron Work Phone: [facility] Work Phone: 10-08-2021 10:35-0500 Body weight 76.2 kg Cesartata Pérezron Work Phone: [facility] Work Phone: 10-08-2021 10:35-0500 Diastolic blood pressure 70 mm[Hg] Cesartata Pérezron Work Phone: [facility] Work Phone: 10-08-2021 10:35-0500 Heart rate 57 /min Cesartata Pérezron Work Phone: [facility] Work Phone: 10-08-2021 10:35-0500 Systolic blood pressure 142 mm[Hg] Cesartata Pérezron Work Phone: [facility] Work Phone: Encounters Encounter Date Encounter Type Care Provider Facility Start: 10-24-2023 ambulatory Efren kinney DO Work Phone: [facility] Comment on above: Pain in legs Start: 10-24-2023 Patient encounter status Juan Diego Carbajal DO Work Phone: [facility] Work Phone: Start: 10-23-2023 ambulatory Efren kinney DO Work Phone: [facility] Comment on above: Legs feel like lead Start: 10-04-2023 End: 10-04-2023 ambulatory Roel Mireles Facility:[facility] Start: 09-29-2023 ambulatory Efren kinney DO Work Phone: [facility] Comment on above: Freezing up Start: 09-26-2023 End: 09-26-2023 ambulatory Christo Saab Facility:[facility] Start: 09-14-2023 ambulatory Efren Nusrat Karmen owski DO Work Phone: [facility] Comment on above: Freezing up Start: 09-08-2023 Telephone encounter Efren michael DO Work Phone: [facility] Comment on above: Clarify C/L CR Start: 09-05-2023 ambulatory Efren Nusrat Karmen owcathyi DO Work Phone: [facility] Comment on above: Medication change Start: 08-31-2023 End: 08-31-2023 ambulatory Christo Saab Facility:[facility] Start: 08-31-2023 End: 08-31-2023 ambulatory MD Christo Saab Work Phone: [facility] Work Phone: Start: 08-31-2023 End: 08-31-2023 Patient encounter procedure MD Christo Saab Work Phone: [facility] [place] Work Phone: Start: 08-29-2023 End: 08-29-2023 ambulatory AMY ZUÑIGA Facility:[facility] Start: 08-29-2023 End: 08-29-2023 Office outpatient visit 10 minutes Efren Carbajal DO Work Phone: [facility] Comment on above: Primary parkinsonism (Primary Dx); Motor fluctuations related to medication use in Parkinson's disease Start: 08-23-2023 End: 08-24-2023 ambulatory JACKLYN KELLY Facility:[facility] [place] Start: 08-17-2023 End: 08-17-2023 ambulatory TORRIE BARAJAS Not Available Start: 08-07-2023 End: 08-08-2023 ambulatory Christo Saab Facility:[facility] [place] Start: 07-21-2023 End: 07-23-2023 Evaluation and management of inpatient Christo Saab Facility:[facility] Start: 07-21-2023 End: 07-23-2023 Evaluation and management of inpatient MD Christo Saab Work Phone: [facility] [place] [facility] Work Phone: Start: 07-19-2023 End: 07-20-2023 ambulatory Christo Saab Facility:[facility] Start: 07-13-2023 End: 07-13-2023 ambulatory [facility] Ambulatory Start: 07-13-2023 End: 07-13-2023 Patient encounter procedure Trung Lopez MA [facility] Comment on above: Persistent atrial fi brillation (CMS/HCC) Refill Request Start: 07-10-2023 Refill Efren kinney DO Work Phone: [facility] Comment on above: Refill Request Start: 07-05-2023 End: 07-05-2023 ambulatory [facility] Ambulatory Start: 07-05-2023 End: 07-05-2023 Office outpatient visit 25 minutes Edel Cesar MD Work Phone: [facility] Comment on above: Persistent atrial fi brillation (CMS/HCC) (Primary Dx); Complete heart block (CMS/HCC); Abnormal echocardiogram; Pacemaker; Pulmonary hypertension (CMS/HCC); Chronic right heart failure (CMS/HCC) Start: 07-05-2023 End: 07-05-2023 ambulatory Christo Saab Facility:[facility] Start: 07-05-2023 End: 07-05-2023 ambulatory MD Christo Saab Work Phone: [facility] Work Phone: Start: 07-05-2023 End: 07-05-2023 Patient encounter procedure MD Christo Saab Work Phone: [facility]-Pacemaker Check Start: 06-26-2023 ambulatory Lars Sebastian [facility] Comment on above: [facility] - Jo Ann ent Assistance ([place] ); Insurance Authorization ([place] Appro[place] ) Start: 06-21-2023 End: 06-22-2023 ambulatory Lisa Howard [facility] Start: 06-20-2023 End: 06-20-2023 ambulatory AMY ZUÑIGA Facility:[facility] Start: 06-20-2023 End: 06-20-2023 Office outpatient visit 10 minutes Efren Carbajal DO Work Phone: [facility] Comment on above: Motor fluctuations r elated to medication use in Parkinson's disease Start: 05-30-2023 End: 05-31-2023 ambulatory Christo Saab [facility] Start: 05-30-2023 End: 05-30-2023 Lab Drop off Christo Saab [facility] Start: 05-30-2023 End: 05-31-2023 ambulatory Christo Saab Facility:[facility] [place] Start: 05-05-2023 End: 05-06-2023 ambulatory EFREN CARBAJAL Facility:[facility] Start: 05-05-2023 End: 05-05-2023 ambulatory AMY ZUÑIGA Facility:[facility] Start: 05-05-2023 End: 05-05-2023 Office outpatient visit 25 minutes Efren Carbajal DO Work Phone: [facility] Comment on above: Primary parkinsonism (Primary Dx); Fatigue, unspecified type Start: 04-05-2023 End: 04-05-[address] Amy Zuñiga Facility:[id number] Start: 04-05-2023 End: 04-05-2023 ambulatory MD Christo Saab Work Phone: [facility] Work Phone: Start: 04-05-2023 End: 04-05-2023 Patient encounter procedure MD Christo Saab Work Phone: [facility]-Pacemaker Check Start: 03-20-2023 End: 03-21-2023 ambulatory Christo Saab Facility:[facility] [place] Start: 02-20-2023 End: 02-21-2023 ambulatory Christo Saab Facility:[facility] [place] Start: 01-30-2023 Refill Efren kinney DO Work Phone: [facility] Comment on above: Refill Request Start: 01-06-2023 FUV, Provider: Edel Cesar, Status: Pen, Time: 11:30 AM Amy Zuñiga Work Phone: [facility] 600 DO Work Phone: Start: 01-06-[address] Edel Cesar Facility: Start: 01-04-2023 Chart Update Amy Zuñiga Work Phone: [facility] 600 DO Work Phone: Start: 12-29-2022 End: 12-29-[address] Amy Zuñiga Facility:[id number] Start: 12-29-2022 End: 12-29-2022 ambulatory MD Amy Zuñiga Work Phone: [facility] Work Phone: Start: 12-29-2022 End: 12-29-2022 Patient encounter procedure MD Amy Zuñiga Work Phone: [facility]-Pacemaker Check Start: 12-21-[address] Edel Cesar Facility: Start: 12-19-2022 End: 12-20-2022 ambulatory Christo Saab Facility:[facility] [place] Start: 12-13-2022 End: 12-13-[address] Amy Zuñiga Facility:[id number] Start: 12-13-2022 End: 12-13-2022 Admission to same day surgery center MD Amy Zuñiga Work Phone: [facility]-Procedure Outpatient Work Phone: Start: 12-13-2022 End: 12-13-2022 ambulatory MD Amy Zuñiga Work Phone: [facility] Work Phone: Start: 12-08-2022 End: 12-09-[address] EDEL CESAR Facility:[facility] Start: 11-29-2022 End: 11-29-2022 ambulatory Efren Carbajal DO Work Phone: [facility] Comment on above: Motor fluctuations r elated to medication use in Parkinson's disease (HCC) (Primary Dx); Primary parkinsonism (HCC) Start: 11-29-2022 End: 11-29-2022 Telemedicine consultation with patient Efren Garcia Solomon DO Work Phone: [facility] Start: 11-28-2022 End: 11-29-2022 ambulatory Christ[facility] Saab [facility] Start: 11-28-2022 End: 11-29-2022 ambulatory CAITLYN Schwartz Facility:[facility] Start: 11-25-[address] Edel Cesar Facility: Start: 11-25-2022 Office outpatient vi sit 25 minutes Amy Zuñiga Work Phone: [facility] 250 DO Work Phone: Start: 11-24-2022 End: 11-24-[address] USHA FERMIN Facility: Start: 11-22-2022 End: 11-23-2022 ambulatory EFREN CARBAJAL Facility:[facility] Start: 11-22-2022 End: 11-22-2022 Patient encounter procedure Efren Carbajal DO Work Phone: [facility] Comment on above: No-show for appointm ent (Primary Dx) Start: 11-22-2022 End: 11-22-2022 Telemedicine consultation with patient Efren Garcia Solomon DO Work Phone: [facility] Start: 11-15-2022 End: 11-16-2022 ambulatory Christo Saab Facility:[facility] [place] Start: 10-20-2022 End: 10-20-2022 ambulatory EFREN CARBAJAL Facility:[facility] Start: 10-19-2022 End: 10-20-[address] AMY ZUÑIGA . Facility:[facility] Start: 10-11-2022 End: 10-12-2022 ambulatory AMY ZUÑIGA Facility:[facility] [place] Start: 10-05-2022 End: 10-05-2022 Patient encounter procedure MD Amy Zuñiga Work Phone: [facility] Work Phone: Start: 10-05-2022 ([facility]) [facility] Transition of Care Ayana Miles [facility] Start: 10-05-2022 End: 10-05-2022 ambulatory Ayana Miles Other [email or web address] Other Start: 10-03-2022 Postop follow up vis it related to original px Amy Zuñiga Work Phone: [facility] 250 DO Work Phone: Start: 10-03-[address] Roel Mireles II Facility: Start: 09-27-2022 Message Cesar Laguna Work Phone: [facility] 250 DO Work Phone: Start: 09-27-[address] Roel Mireles II Facility:[id number] Start: 09-26-[address] Roel Mireles II Facility:[id number] Start: 09-25-2022 End: 09-27-2022 Evaluation and management of inpatient MD Amy Zuñiga Work Phone: [facility] [place] [facility] Work Phone: Start: 09-25-2022 End: 09-25-[address] NILDA CARLISLE . Facility:[facility] Start: 09-25-[address] Roel Mireles II Facility:[id number] Start: 09-15-2022 End: 09-16-[address] AMY ZUÑIGA . Facility:[facility] Start: 09-05-2022 End: 09-06-[address] AMY ZUÑIGA . Facility:[facility] Start: 08-29-2022 Telephone encounter Ayanna gaffney Research Coordinator Work Phone: [facility] Comment on above: Patient Question Start: 08-17-2022 Telephone encounter Efren michael DO Work Phone: [facility] Comment on above: Medication Problem Start: 08-10-[address] Edel Cesar Facility: Start: 07-19-2022 Rx Renewal Cesar Luz Elena Work Phone: [facility] 250 DO Work Phone: Start: 07-18-2022 End: 07-18-[address] AMY ZUÑIGA . Facility: Start: 06-28-2022 Telephone encounter Efren michael DO Work Phone: [facility] Comment on above: Clinical Update (Med ication Question/) Start: 06-24-2022 ambulatory Amanuel Rosa [facility] Start: 06-24-2022 Patient encounter procedure Amanuel Rosa [facility] Comment on above: SPP Neurology - Rosario tment Referral (Musa); Insurance Authorization ([place] Submission Pending ) Start: 02-24-2022 Office outpatient vi sit 25 minutes Cesar Luz Elena Work Phone: [facility] 600 DO Work Phone: Start: 12-23-2021 End: 12-23-2021 ambulatory JORDAN CHEN Facility:H1 Start: 10-08-2021 Office outpatient ne w 45 minutes Cesar Luz Elena Work Phone: [facility] Work Phone: Procedures Date Procedure Procedure Detail Performing Clinician Start: 08-31-2023 Basic metabolic 2000 panel - Serum or Plasma EDEL CESAR Start: 08-31-2023 Thyrotropin [Units/v olume] in Serum or Plasma EDEL CESAR Start: 08-31-2023 ECG 12-LEAD MOURHAF TR ABOULSSI Start: 07-21-2023 Plain chest X-ray MD Sa krys Saab Work Phone: Start: 07-13-2023 ECG 12-LEAD MOURHAF TR ABOULSSI Start: 07-05-2023 ECG 12-LEAD MOURHAF TR ABOULSSI Start: 07-05-2023 Ecg routine ecg w/le ast 12 lds w/i&r Edel Cesar MD Work Phone: Start: 12-29-2022 Plain chest X-ray MD Hai Zuñiga Work Phone: Start: 09-27-2022 Plain chest X-ray MD Hai Zuñiga Work Phone: Start: 09-26-2022 Plain chest X-ray MD Hai Zuñiga Work Phone: Start: 09-26-2022 Doppler ultrasonogra phy of bilateral carotid arteries MD Amy Zuñiga Work Phone: Start: 09-26-2022 Implantation of card iac pacemaker MD Amy Zuñiga Work Phone: Start: 08-31-2022 Cardiac pacemaker, d evice (physical object) Christo Saab Comment on above: 09/26/22 Start: 07-31-2013 Total colonoscopy Timot hy Luz Elena Work Phone: Start: 05-24-2013 Cystoscopy Christo pedroza Start: 03-31-2011 Teleradiotherapy procedure Christo Saab Start: 12-31-2010 Transrectal biopsy o f prostate using ultrasound guidance Christo Saab Biopsy of skin Christo Saab Esophagoduodenostomy Christo Saab Hernia repair Cesar [place] Work Phone: Insertion of pacemak er pulse generator Amy Zuñiga Work Phone: Operation on colon Cesar H ade Work Phone: Procedure on prostate Paras Laguna Work Phone: Plan of Treatment Date Care Activity Detail Author Start: 07-03-2031 DTaP/Tdap/Td Vaccine s (3 - Td or Tdap) DTaP/Tdap/Td Vaccines (3 - Td or Tdap) [facility] Start: 07-03-2031 Urine microalbumin profile [facility] Start: 05-05-2026 Diabetes Screening Diabetes Screenin g [facility] Start: 11-08-2023 ambulatory Ambulatory Facility:[facility] Start: 11-07-2023 End: 11-07-2023 Patient encounter procedure 11/07/2023 3:30 PM EDT Office Visit [facility] [address] [place] [address] Edel Cesar MD [address] [place] [address] [facility] Start: 10-25-2023 End: 01-24-2024 Aldolase [Enzymatic activity/volume] in Serum or Plasma ALDOLASE BLD Lab Routine Muscle pain Expected: 10/25/2023, Expires: 01/24/2024 [facility] Work Phone: Comment on above: Expected: 10/25/2023 , Expires: 01/24/2024 Start: 10-25-2023 End: 01-24-2024 Comprehensive metabolic 2000 panel - Serum or Plasma COMP METABOLIC PANEL Lab Routine Muscle pain Expected: 10/25/2023, Expires: 01/24/2024 [facility] Work Phone: Comment on above: Expected: 10/25/2023 , Expires: 01/24/2024 Start: 10-25-2023 End: 01-24-2024 Creatine kinase [Enzymatic activity/volume] in Serum or Plasma CK CREATINE KINASE Lab Routine Muscle pain Expected: 10/25/2023, Expires: 01/24/2024 [facility] Work Phone: Comment on above: Expected: 10/25/2023 , Expires: 01/24/2024 Start: 10-25-2023 End: 01-24-2024 Erythrocyte sedimentation rate SED RATE WESTERGREN Lab Routine Muscle pain Expected: 10/25/2023, Expires: 01/24/2024 [facility] Work Phone: Comment on above: Expected: 10/25/2023 , Expires: 01/24/2024 Start: 10-25-2023 End: 01-24-2024 Magnesium [Mass/volume] in Serum or Plasma MAGNESIUM BLD Lab Routine Muscle pain Expected: 10/25/2023, Expires: 01/24/2024 [facility] Work Phone: Comment on above: Expected: 10/25/2023 , Expires: 01/24/2024 Start: 10-25-2023 End: 01-24-2024 PYRUVATE+LACTATE BL PYRUVATE+LACTATE BL Lab Routine Muscle pain Expected: 10/25/2023, Expires: 01/24/2024 [facility] Work Phone: Comment on above: Expected: 10/25/2023 , Expires: 01/24/2024 Start: 08-05-2023 End: 07-05-2024 ECG 12 Lead ECG 12 Lead ECG Routine Persistent atrial fibrillation (CMS/HCC) Expected: 08/05/2023 (Approximate), Expires: 07/05/2024 [facility] Service Area Work Phone: Comment on above: Expected: 08/05/2023 (Approximate), Expires: 07/05/2024 Start: 08-01-2023 End: 08-01-2023 Patient encounter procedure 08/01/2023 1:00 PM EST Procedure Visit [facility] [address] [address] [facility] Start: 07-31-2023 Advance Directive Discussion Advance Directive Discussion [facility] Start: 07-31-2023 Depression Assessment Depression Ass essment [facility] Start: 07-23-[address] [facility] Start: 07-21-2023 Hospital admission [facility] Start: 07-21-[address] [facility] Start: 07-21-[address] [facility] Start: 03-31-2023 Covid-19 Vaccine ( season) Covid-19 Vaccine () [facility] Start: 03-31-2023 Influenza vaccination [facility] Start: 02-10-2023 FUV, Provider: Edel Cesar, Status: Pen, Time: 10:00 AM FUV, Provider: Edel Cesar, Status: Pen, Time: 10:00 AM -[facility] [address] DO Work Phone: Start: 01-11-2023 FUV, Provider: Edel Cesar, Status: Pen, Time: 3:00 PM FUV, Provider: Edel Cesar, Status: Pen, Time: 3:00 PM MP-[facility] 250 DO Work Phone: Start: 12-13-2022 SURGNONUH, Provider: Edel Cesar, Status: Pen, Time: 11:00 AM SURGNONUH, Provider: Edel Cesar, Status: Pen, Time: 11:00 AM -[facility] 250 DO Work Phone: Start: 12-13-[address] [facility] Start: 11-25-2022 FUV, Provider: Edel Cesar, Status: Pen, Time: 9:30 AM FUV, Provider: Edel Cesar, Status: Pen, Time: 9:30 AM -[facility] 250 DO Work Phone: Start: 10-03-2022 WOUNDCHENANO, Provider : NATALY TELLEZ FRAME SAMPLE AND PATTERN SUPERVISOR 1,[id number], Status: Pen, Time: 10:30 AM WOUNDCHECK, Provider: NATALY TELLEZ FRAME SAMPLE AND PATTERN SUPERVISOR 1,[id number], Status: Pen, Time: 10:30 AM -[facility] 250 DO Work Phone: Start: 09-27-2022 End: 09-27-[address] [facility] Start: 09-26-[address] [facility] Start: 09-25-2022 Insertion of Pacemak er Lead into Right Atrium, Percutaneous Approach Insertion of Pacemaker Lead into Right Atrium, Percutaneous Approach [facility] Start: 09-25-2022 Insertion of Pacemak er Lead into Right Ventricle, Percutaneous Approach Insertion of Pacemaker Lead into Right Ventricle, Percutaneous Approach [facility] Start: 09-25-2022 Insertion of Pacemak er, Dual Chamber into Chest Subcutaneous Tissue and Fascia, Open Approach Insertion of Pacemaker, Dual Chamber into Chest Subcutaneous Tissue and Fascia, Open Approach [facility] Start: 09-25-2022 Referral to top carrier [facility] Start: 09-25-2022 Hospital admission [facility] Start: 09-07-2022 COVID-19 Vaccine (4 - Moderna series) COVID-19 Vaccine (4 - Moderna series) [facility] Start: 08-10-2022 FUV, Provider: Edel Cesar, Status: Pen, Time: 9:20 AM FUV, Provider: Edel Cesar, Status: Pen, Time: 9:20 AM [place] [address] DO Work Phone: Start: 07-31-2022 ADVANCE DIRECTIVE DISCUSSION ADVANCE DIRECTIVE DISCUSSION [facility] Start: 07-31-2022 DEPRESSION ASSESSMENT DEPRESSION ASS ESSMENT [facility] Start: 03-31-2022 Influenza vaccination INFLUENZA (#1) [facility] Start: 12-29-2021 FUV, Provider: Edel Cesar, Status: Pen, Time: 9:40 AM FUV, Provider: Edel Cesar, Status: Pen, Time: 9:40 AM [facility] Work Phone: Start: 09-14-2021 COVID-19 VACCINE (4 - Booster for Moderna series) COVID-19 VACCINE (4 - Booster for Moderna series) [facility] Start: 09-14-2021 Covid-19 Vaccine (4 - Moderna series) Covid-19 Vaccine (4 - Moderna series) [facility] Start: 07-31-2021 ADVANCE DIRECTIVE DISCUSSION ADVANCE DIRECTIVE DISCUSSION [facility] Start: 07-31-2021 DEPRESSION ASSESSMENT DEPRESSION ASS ESSMENT [facility] Start: 12-31-2019 [facility]ABET[facility]EN [facility] Start: 12-31-2019 Diabetes Screening Diabetes Screenin g [facility] Start: 2003 Pneumococcal Vaccine : 65+ (1 - PCV) Pneumococcal Vaccine: 65+ (1 - PCV) [facility] Start: 2003 PNEUMOCOCCAL: 65+ (1 - PCV) PNEUMOCOCCAL: 65+ (1 - PCV) [facility] Start: 1998 RSV Vaccine (1 - 1-d ose 60+ series) RSV Vaccine (1 - 1-dose 60+ series) [facility] Start: 1988 SHINGRIX VACCINE (1 of 2) SHINGRIX VACCINE (1 of 2) [facility] Start: 1988 Zoster Vaccines (1 of 2) Zoste r Vaccines (1 of 2) [facility] Start: 1957 Urine microalbumin profile [facility] Start: 1956 Diabetes mellitus screening Diabetes Screening [facility] Start: 1938 Lipid panel Lipid Panel [facility] Start: 1938 Medicare Annual Well ness Visit Medicare Annual Wellness Visit (AWV) [facility] Start: 1938 Thyroid stimulating hormone measurement TSH Level [facility] ECG 12 Lead ECG 12 Lead ECG Routine Persistent atrial fibrillation (CMS/HCC) 07/13/2023 1:48 PM EST [facility] Service Area Work Phone: Patient Education Atrial Fibrill ation (DC) [facility] Work Phone: Patient referral [facility] Work Phone: End: 11-23-2024 US Lower extremity vein - bilateral US DVT LOWER BILATERAL Radiology Routine Muscle pain Encounter for other preprocedural examination Pain in left leg 1 Occurrences starting 10/25/2023 until 11/23/2024 [facility] Work Phone: Comment on above: 1 Occurrences starti ng 10/25/2023 until 11/23/2024 [facility] Immun[facility] Immunization Date Immunization Notes Care Provider Cullen ames 05-30-2023 influenza, high dose seasonal, preservative-free Christo Saab [facility] 07-13-2022 Moderna COVID-19 Biv al Booster 50 MCG/0.5ML Intramuscular Suspension Cesartata Pérezron Work Phone: [facility] Comment on above: Result Comment: 2022: [id number] 05-04-2022 Fluzone High-Dose Quadrivalent 0.7 ML Intramuscular Suspension Prefilled Syringe Cesar Luz Elena Work Phone: [place] [address] DO Work Phone: 05-04-2022 influenza virus vaccine, unspecified formulation Efren Carbajal DO Work Phone: [facility] 07-20-2021 Moderna COVID-19 Vaccine 100 MCG/0.5ML Intramuscular Suspension Cesar Luz Elena Work Phone: [facility] Comment on above: Series: Result Comment: 2022: [id number] 07-03-2021 diphtheria, tetanus toxoids and pertussis vaccine Cesar [place] Work Phone: [facility] Work Phone: 07-03-2021 tetanus toxoid, redu mikal diphtheria toxoid, and acellular pertussis vaccine, adsorbed Edel Cesar MD Work Phone: [facility] Work Phone: 09-25-2020 Moderna COVID-19 Vaccine 100 MCG/0.5ML Intramuscular Suspension Cesar [place] Work Phone: [facility] Comment on above: Series: 08-28-2020 Moderna COVID-19 Vaccine 100 MCG/0.5ML Intramuscular Suspension Cesar Luz Elena Work Phone: [facility] Comment on above: Series: 05-27-2020 Fluad Quadrivalent 0 .5 ML Intramuscular Prefilled Syringe Cesar Luz Elena Work Phone: [facility] Work Phone: 05-27-2020 influenza virus vaccine, unspecified formulation Christo Saab [facility] 06-12-2019 influenza virus vaccine, unspecified formulation Christo Saab [facility] 06-12-2019 influenza, high dose seasonal, preservative-free Cesar Luz Elena Work Phone: [facility] Work Phone: 06-12-2019 pneumococcal polysaccharide vaccine, 23 valent Cesar Luz Elena Work Phone: [facility] 06-04-2018 influenza virus vaccine, unspecified formulation Christo Saab [facility] 06-04-2018 Influenza, injectabl e, Madin [place] Canine Kidney, preservative free, quadrivalent Cesar [place] Work Phone: [facility] Work Phone: 07-03-2017 influenza virus vaccine, unspecified formulation Christomecca Saab [facility] 07-03-2017 influenza, high dose seasonal, preservative-free Cesar Luz Elena Work Phone: [facility] Work Phone: 07-03-2017 pneumococcal conjuga te vaccine, 13 valent Cesar Luz Elena Work Phone: [facility] 05-24-2013 influenza virus vaccine, unspecified formulation Christo Saab [facility] 05-24-2013 influenza, seasonal, injectable Cesar [place] Work Phone: [facility] Work Phone: 05-16-2009 influenza virus vaccine, whole virus Cesar Marina [place] Work Phone: [facility] Work Phone: 05-16-2009 influenza, whole Christo Saab [facility] Payers Date Payer Category Payer Self-pay 2022 Unknown 2014 Private Health Insurance [facility] AARP SUPPLEMENT [id number] 2014-Present [phone] [address] [place] [address] Indemnity [id number] 2003 Medicare [id number] 1959 Medicare [id number] 1959 Unknown [id number] 2.16.840.1.403826.19 1938 Unknown [id number] 2.16.840.1.654057.3.579.2 .593 1938 Unknown [id number] 2.16.840.1.874624.3.579.2 .593 1938 Unknown [id number] 2.16.840.1.616180.3.579.2 .593 1938 Unknown [id number] 2.16.840.1.847385.3.579.2 .593 1938 Unknown [id number] 2.16.840.1.688404.3.579.2 .593 1938 Unknown [id number] 2.16.840.1.294407.3.579.2 .593 1938 Unknown [id number] 2.16.840.1.632087.3.579.2 .593 1938 Unknown [id number] 2.16.840.1.973624.3.579.2 .593 1938 Unknown [id number] 2.16.840.1.529355.3.579.2 .593 1938 Unknown [id number] 2.16.840.1.793133.3.579.2 .356 1938 Unknown [id number] 2.16.840.1.037292.3.579.2 .356 1938 Unknown [id number] 2.840.1.759630.3.579.2 .356 1938 Unknown [id number] 2.840.1.925817.3.579.2 .356 1938 Unknown [id number] 2.840.1.103662.3.579.2 .356 1938 Unknown [id number] 2.840.1.302588.3.579.2 .356 1938 Unknown [id number] 2.840.1.080849.3.579.2 .356 1938 Unknown [id number] 2.840.1.064355.3.579.2 .356 1938 Unknown [id number] 2.840.1.168892.3.579.2 .356 1938 Unknown [id number] 2.840.1.058792.3.579.2 .356 1938 Unknown [id number] 2.840.1.696036.3.579.2 .356 1938 Unknown [id number] 2.840.1.467871.3.579.2 .356 1938 Unknown [id number] 2.840.1.656526.3.579.2 .356 1938 Unknown [id number] 2.840.1.895397.3.579.2 .356 1938 Unknown [id number] 2.16.840.1.683541.3.579.2 .1259 1938 Unknown [id number] 2.16.840.1.083740.3.579.2 .1244 1938 Unknown [id number] 2.16.840.1.047714.3.579.2 .1244 1938 Unknown [id number] 2.16.840.1.285616.3.579.2 .1244 1938 Unknown [id number] 2.16.840.1.038554.3.579.2 .727 1938 Unknown [id number] 2.16.840.1.704966.3.579.2 .72 1938 Unknown [id number] 2.16840.1.408854.3.579.2 .72 1938 Unknown [id number] 2.16.840.1.765596.3.579.2 .72 1938 Unknown [id number] 2.16.840.1.358874.3.579.2 .72 1938 Unknown [id number] 2.16.840.1.937719.3.579.2 .727 1938 Unknown [id number] 2.16840.1.869214.3.579.2 .72 1938 Unknown [id number] 2.16.840.1.395620.3.579.2 .72 1938 Unknown [id number] 2.16.840.1.661208.3.579.2 .72 1938 Unknown [id number] 2.16.840.1.151784.3.579.2 .72 1938 Unknown [id number] 2.16.840.1.652553.3.579.2 .72 1938 Unknown [id number] 2.16.840.1.798032.3.579.2 .727 1938 Unknown [id number] 2.16840.1.723029.3.579.2 .727 Medicare Medicare Outpatient [id number] Unknown [facility] Claims [id number] Unknown [id number] 2.16840.1.282266.3.579.2 .531 Unknown [id number] 2.16840.1.940631.3.579.2 .531 Unknown [id number] 2.16840.1.901393.3.579.2 .531 Unknown [id number] 2.16840.1.248950.3.579.2 .531 Unknown [id number] 2.16840.1.614173.3.579.2 .531 Unknown [id number] 2.16840.1.067620.3.579.2 .531 Unknown [id number] 2.16840.1.280725.3.579.2 .531 Unknown [id number] 2.16840.1.635894.3.579.2 .531 Social History Date Type Detail Facility Start: 06-21-2022 End: 08-15-2022 No illicit drug use No illicit drug use [facility] Start: 06-21-2022 End: 07-21-2023 Tobacco smoking status NHIS Ex-smoker [facility] History of tobacco use Current smoker [facility] History of tobacco use Cigarette Smoker [facility] Start: 06-21-2022 End: 07-05-2023 Tobacco use and exposure Smokeless tobacco non-user [facility] Start: 06-21-2022 End: 05-05-2023 Alcohol intake Current non-drinker of alcohol (finding) [facility] Start: 06-21-2022 Tobacco Comment quit many yrs ago [facility] Start: 1940 Sex Assigned At Not on file [facility] Start: 06-11-2022 End: 07-13-2023 Exposure to SARS-CoV-2 (event) Not sure [facility] Start: 09-26-2022 End: 09-26-2022 Tobacco smoking status NHIS Never smoked tobacco (finding) [facility] Start: 1940 Sex Assigned At Male F [facility] Start: 08-15-2022 End: 05-05-2023 Sex Assigned At [facility] Adult Depression Screening Assessment 0 [facility] Start: 07-05-2023 End: 07-13-2023 Alcohol intake Lifetime non-drinker (finding) [facility] Work Phone: Medical Equipment Procedure Code Equipment Code Equipment Origin al Text Equipment Identifier Dates Insertion, pacemaker Endocardial pacing lead ()[id number] FDA Start: 09-26-2022 Insertion, pacemaker Endocardial pacing lead ()[id number] FDA Start: 09-26-2022 Insertion, pacemaker Dual-chamber implantable pacemaker, rate-responsive ()[id number] FDA Start: 09-26-2022 Goals Date Patient Goal Desired Activity /State Functional Status Date Assessment Result Facility 07-23-2023 Functional status Patient at Baseline [facility] Work Phone: 07-21-2023 Functional status Patient Not at Baseline [facility] Work Phone: 09-27-2022 Functional status Patient at Baseline [facility] Work Phone: Mental Status Date Assessment Result Facility 07-23-2023 Cognitive function Cognitive Sta tus Patient at Baseline [facility] Work Phone: 07-21-2023 Cognitive function Cognitive Sta tus Patient at Baseline [facility] Work Phone: 09-27-2022 Cognitive function Cognitive Sta tus Patient is Progressing Toward Baseline [facility] Work Phone: Clinical Notes 11-25-2022 to 09-08-2023 Telephone Encounter - Maurice Canela RN - 09/08/2023 3:24 PM ESTTelephone Encounter - Elma Turpin - 09/08/2023 11:41 AM ESTPatient Instructions Note Date & Type Note Facility 09-08-2023 Miscellaneous Notes Form was printed with clarification completed per Dr. Carbajal, for Sinemet CR 50-200 mg and faxed back to [facility]. Fax request to clarify C/L CR can be found in scanned docs. documented in this encounter [facility] 08-29-2023 Note HNO ID: [id number] Author: EFREN CARBAJAL, DO Service: ? Author Type: Physician Type: Progress Notes Filed: 09/04/2023 23:56 Note Text: VIRTUAL VISIT PROGRESS NOTE This is a virtual visit using [employer] Zoom Video Visit. It required patient-provider interaction for the medical decision making as documented below. I have communicated my name and active licensure. The patient's identity and physical location were verified at the time of this visit. Either the patient or their legal new accounts representative has been informed of the risks and benefits of -- and alternatives to -- treatment through a remote evaluation and consents to proceed with the evaluation remotely. Magdaleno Valderrama is a 83 year old male seen for senescent parkinsonism . More locking-up - first in AM and then in the evening - does well in the middle of day. Medications 6 AM 10 AM 2 PM 6 PM Sinemet (carbidopa/levodopa) CR 50/200 1 1 1 1 Sinemet (carbidopa/levodopa) 25/100 1.5 1.5 1.5 1.5 Aricept (donepezil) 5mg x x x 1 Clonazepam 0.5 mg x x x 1 Miralax as needed Melatonin 15 mg x x x 1 HISTORY REVIEWED (electronic chart updated): PAST MEDICAL HISTORY Diagnosis Date Hypothyroid surgical: 4-5 cm nodule. Malignant neoplasm of colon, unspecified site 1996 Colon cancer (blood in stool test card) Unspecified sleep apnea 1995 Sleep apnea PAST SURGICAL HISTORY Procedure Laterality Date COLECTOMY PARTIAL W/ANASTOMOSIS 1996 r Hemicolectomy PAST SURGICAL HISTORY OF skin removal, skin peel on head. RPR 1ST INGUN HRNA AGE 3 YRS/> REDUCIBLE Hernia repair, inguinal THYROIDECTOMY TOTAL/COMPLETE 2009 FAMILY HISTORY Problem Relation Age of Onset Diabetes Mother age 87 Thyroid Paternal Grandmother goiter Cancer Father metastatic prostate Ca. agfe 83 None Son None Son None Son Heart Father Social History Tobacco Use Smoking status: Former Packs/day: 1.00 Years: 20.00 Additional pack years: 0.00 Total pack years: 20.00 Types: Cigarettes Smokeless tobacco: Never Tobacco comments: quit many yrs ago Substance Use Topics Alcohol use: No Drug use: No Current Outpatient Medications Medication Sig carbidopa-levodopa CR (SINEMET CR) 50-200 mg per tablet Take 1 tablet by mouth three times a day AND 2 tablets once daily. [Bedtime]. donepezil (ARICEPT) 10 mg tablet Take 1 tablet by mouth once daily. Take 1 tablet by mouth daily. levodopa (INBRIJA) 42 mg Inhale 2 capsules by mouth as needed for medication wearing off episodes. Use no more than five times a day. furosemide (LASIX) 40 mg tablet Take 1 tablet by mouth three times a day. carbidopa-levodopa (SINEMET 25-100) 25-100 mg per tablet Take 1.5 tablets of immediate release levodopa/carbidopa 25/100 mg at 6 AM, 10 AM, 2 PM, and 6 PM clonazePAM (KLONOPIN) 0.5 mg tablet Take by mouth. ELIQUIS 5 mg tab(s) Take 5 mg by mouth twice daily. vit C/E/Zn/coppr/lutein/zeaxan (PRESERVISION AREDS-2 ORAL) Take by mouth. levothyroxine (SYNTHROID) 100 mcg tablet 1.5 tab on Mondays, one other 6 days. allopurinol (ZYLOPRIM) 300 mg tablet Take 1 tablet by mouth once daily. atorvastatin 20 mg tablet Take 20 mg by mouth once daily. Cholecalciferol, Vitamin D3, 25 mcg (1,000 unit) cap Take 1,000 Units by mouth once daily. cyanocobalamin(VITAMIN B-12 500 MCG TAB) Take one(1) tablet daily. No current facility-administered medications for this visit. ALLERGIES Allergen Reactions Neosporin [Neomycin* REVIEW OF SYSTEMS: All other ROS: negative As noted in HPI PHYSICAL EXAMINATION: VIDEO EXAM: (if completed, performed via video enabled technology) NEUROLOGIC: no obvious deficit and positive masked facies. Positive parkinsonism bilaterally which is fairly symmetric. There is no overt rest, postural, action tremor. There is mild hypophonia. Patient's gait was not assessed ASSESSMENT: (G20.C) Primary parkinsonism (primary encounter diagnosis) (G20.A2, T42.8X5A) Motor fluctuations related to medication use in Parkinson's disease PLAN: Increase time-released Sinemet at HS O/w Continue current antiparkinsonian regimen as dosed. Patient Instructions Medications 6 AM 10 AM 2 PM 6 PM 9PM Sinemet (carbidopa/levodopa) CR 50/200 1 1 1 0 2 Sinemet (carbidopa/levodopa) 25/100 1.5 1.5 1.5 1.5 0 Aricept (donepezil) 5mg x x x x 1 Clonazepam 0.5 mg x x x x 1 Miralax as needed Melatonin 15 mg x x x x x I spent a total of 12 minutes on the date of the service which included preparing to see the patient, [id number] patient care, completing clinical documentation, obtaining and/or reviewing separately obtained history, performing a medically appropriate examination, counseling and educating the patient/family/caregiver, and ordering medications, tests, or procedures fEren Carbajal DO [facility] 08-29-2023 Instructions Efren Carbajal DO - 08/29/2023 3:24 PM EST Medications 6 AM 10 AM 2 PM 6 PM 9PM Sinemet (carbidopa/levodopa) CR 50/200 1 1 1 0 2 Sinemet (carbidopa/levodopa) 25/100 1.5 1.5 1.5 1.5 0 Aricept (donepezil) 5mg x x x x 1 Clonazepam 0.5 mg x x x x 1 Miralax as needed Melatonin 15 mg x x x x x documented in this encounter [facility] 08-29-2023 History of Presen t illness Narrative VIRTUAL VISIT PROGRESS NOTE This is a virtual visit using [employer] Zoom Video Visit. It required patient-provider interaction for the medical decision making as documented below. I have communicated my name and active licensure. The patient's identity and physical location were verified at the time of this visit. Either the patient or their legal new accounts representative has been informed of the risks and benefits of -- and alternatives to -- treatment through a remote evaluation and consents to proceed with the evaluation remotely. Magdaleno Valderrama is a 83 year old male seen for senescent parkinsonism . More locking-up - first in AM and then in the evening - does well in the middle of day. Medications 6 AM 10 AM 2 PM 6 PM Sinemet (carbidopa/levodopa) CR 50/200 1 1 1 1 Sinemet (carbidopa/levodopa) 25/100 1.5 1.5 1.5 1.5 Aricept (donepezil) 5mg x x x 1 Clonazepam 0.5 mg x x x 1 Miralax as needed Melatonin 15 mg x x x 1 HISTORY REVIEWED (electronic chart updated): PAST MEDICAL HISTORY Diagnosis Date Hypothyroid surgical: 4-5 cm nodule. Malignant neoplasm of colon, unspecified site 1996 Colon cancer (blood in stool test card) Unspecified sleep apnea 1995 Sleep apnea PAST SURGICAL HISTORY Procedure Laterality Date COLECTOMY PARTIAL W/ANASTOMOSIS 1996 r Hemicolectomy PAST SURGICAL HISTORY OF skin removal, skin peel on head. RPR 1ST INGUN HRNA AGE 5 YRS/> REDUCIBLE Hernia repair, inguinal THYROIDECTOMY TOTAL/COMPLETE 2009 FAMILY HISTORY Problem Relation Age of Onset Diabetes Mother age 87 Thyroid Paternal Grandmother goiter Cancer Father metastatic prostate Ca. agfe 83 None Son None Son None Son Heart Father Social History Tobacco Use Smoking status: Former Packs/day: 1.00 Years: 20.00 Additional pack years: 0.00 Total pack years: 20.00 Types: Cigarettes Smokeless tobacco: Never Tobacco comments: quit many yrs ago Substance Use Topics Alcohol use: No Drug use: No Current Outpatient Medications Medication Sig carbidopa-levodopa CR (SINEMET CR) 50-200 mg per tablet Take 1 tablet by mouth three times a day AND 2 tablets once daily. [Bedtime]. donepezil (ARICEPT) 10 mg tablet Take 1 tablet by mouth once daily. Take 1 tablet by mouth daily. levodopa (INBRIJA) 42 mg Inhale 2 capsules by mouth as needed for medication wearing off episodes. Use no more than five times a day. furosemide (LASIX) 40 mg tablet Take 1 tablet by mouth three times a day. carbidopa-levodopa (SINEMET 25-100) 25-100 mg per tablet Take 1.5 tablets of immediate release levodopa/carbidopa 25/100 mg at 6 AM, 10 AM, 2 PM, and 6 PM clonazePAM (KLONOPIN) 0.5 mg tablet Take by mouth. ELIQUIS 5 mg tab(s) Take 5 mg by mouth twice daily. vit C/E/Zn/coppr/lutein/zeaxan (PRESERVISION AREDS-2 ORAL) Take by mouth. levothyroxine (SYNTHROID) 100 mcg tablet 1.5 tab on Mondays, one other 6 days. allopurinol (ZYLOPRIM) 300 mg tablet Take 1 tablet by mouth once daily. atorvastatin 20 mg tablet Take 20 mg by mouth once daily. Cholecalciferol, Vitamin D3, 25 mcg (1,000 unit) cap Take 1,000 Units by mouth once daily. cyanocobalamin(VITAMIN B-12 500 MCG TAB) Take one(1) tablet daily. No current facility-administered medications for this visit. ALLERGIES Allergen Reactions Neosporin [Neomycin* REVIEW OF SYSTEMS: All other ROS: negative As noted in HPI PHYSICAL EXAMINATION: VIDEO EXAM: (if completed, performed via video enabled technology) NEUROLOGIC: no obvious deficit and positive masked facies. Positive parkinsonism bilaterally which is fairly symmetric. There is no overt rest, postural, action tremor. There is mild hypophonia. Patient's gait was not assessed ASSESSMENT: (G20.C) Primary parkinsonism (primary encounter diagnosis) (G20.A2, T42.8X5A) Motor fluctuations related to medication use in Parkinson's disease PLAN: Increase time-released Sinemet at HS O/w Continue current antiparkinsonian regimen as dosed. Patient Instructions Medications 6 AM 10 AM 2 PM 6 PM 9PM Sinemet (carbidopa/levodopa) CR 50/200 1 1 1 0 2 Sinemet (carbidopa/levodopa) 25/100 1.5 1.5 1.5 1.5 0 Aricept (donepezil) 5mg x x x x 1 Clonazepam 0.5 mg x x x x 1 Miralax as needed Melatonin 15 mg x x x x x I spent a total of 12 minutes on the date of the service which included preparing to see the patient, [id number] patient care, completing clinical documentation, obtaining and/or reviewing separately obtained history, performing a medically appropriate examination, counseling and educating the patient/family/caregiver, and ordering medications, tests, or procedures Efren Carbajal DO documented in this encounter [facility] 07-22-2023 Progress note Note Date/Time July 22, 2023 10:57am [facility] [address] [place] [address] Hospitalist Progress Note Signed with Chandler Patient: Magdaleno Valderrama MR#: [id number] : 1940 Acct:[id number] Age/Sex: 83 / M Adm Date: 3 Loc: Room: [address] [place] [address] Type: ADM IN Attending Dr: Ashwini Clancy MD Copies to: ~ ADDENDUM1 Patient was personally seen by me on the day of encounter, reviewed his history and performed cobian elements of exam and formulated the plan of care and confirmedthe resident/interns note below. Case discussed with patient and his son at bedside. He still appears weak and has not been out of the bed yet. Continue PT/OT. Continuous cardiac monitoringrule out arrhythmia. Addendum Documented By: Ashwini Clancy MD 07/22/231347 Addendum Signed By: <Electronically signed by Ashwini Clancy MD> 07/22/238 Date of Service: 07/22/2023 Subjective Subjective Narrative: Patient is resting in bed at the time of exam. He states that his symptoms have improved, denying any lightheadedness or dizziness today. He has been able to ambulate to the restroom and had 2 BM this morning. He states that he didn't have any symptoms while going to the restroom, but felt unstable . He states that he did not get much sleep last night, but notes having to urinate less frequently over the night. Patient had breakfast this morning and tolerated it well. Pt denies any other complaints at this time. Creatinine is downward trending at 1.04 today and BUN at 30. Vitals are stable at the time of exam. Exam Physical Exam Vital Signs: Temp Pulse Resp BP Pulse Ox O2 Del Method 97.3 F L 69 16 122/76 99 Room Air 07/22/23 07:53 07/22/23 07:53 07/22/23 07:53 07/22/23 07:53 07/22/23 07:53 07/22/23 08:01 Const General: cooperative and frail appearing Orientation: alert, awake and oriented x3 HEENT Head: normal to inspection and no palpable skull fracture Ears: hearing grossly normal bilaterally Face and sinus: normal facial exam and face symmetric Eyes General: appearance normal, both eyes and all related structures Visual Sexton: normal visual sexton by confrontation Pupils: PERRL Neck Neck: normal visual inspection and full ROM Chest Chest palpation & inspection: normal inspection of the chest and normal palpation of entire chest wall Resp Effort & Inspection: normal respiratory effort, able to speak in complete sentences and symmetric chest movement Auscultation: clear to auscultation bilaterally, no crackles, no rales, no rhonchi and no wheezes Cardio Rate: regular rate Rhythm: regular rhythm Pulses: ulnar radial pulses present and dorsalis pedis present GI Inspection: normal to inspection and non-distended Palpation: soft Percussion: normal to percussion Auscultation: normal bowel sounds Skin General: no rashes or lesions noted Neuro General: patient alert, patient awake, patient oriented x3, normal light touch, pain and propioception and CN's II-XI intact bilaterally Extrem General: normal to inspection Objective Lab Results 07/21/23 12:03 07/22/23 06:06 Meds Allergies and Active Meds Allergies bacitracin Allergy (Verified 09/25/22 12:07) Unknown Reaction haloperidol [From Haldol] Allergy (Verified 09/25/22 12:07) Unknown Reaction neomycin [From Neosporin ([id number])] Allergy (Verified 09/25/22 12:07) Blister polymyxin B [From Neosporin ([id number])] Allergy (Verified 09/25/22 12:07) Blister Active Meds: Active Medications Generic Name Dose Route Start Last Admin Trade Name Ramy PRN Reason Stop Dose Admin Acetaminophen 650 mg 07/21/23 18:11 Acetaminophen 325 Mg Tablet PO 07/20/24 18:10 Q6HR PRN Pain Scale 1 - 3 or fever Apixaban 5 mg 07/21/23 21:00 07/22/23 08:01 Apixaban 5 Mg Tablet PO 07/20/24 20:59 5 mg BID ROB Administration Atorvastatin Calcium 20 mg 07/21/23 22:00 07/21/23 22:06 Atorvastatin 20 Mg Tablet PO 07/20/24 21:59 20 mg QPM ROB Administration Carbidopa/Levodopa 1.5 tab 07/22/23 06:00 07/22/23 06:32 Carbidopa/Levodopa 25-100 Mg 1 Tab Tablet PO 07/20/24 18:44 1.5 tab QID@0600,1000,1400,1800 ROB Administration Clonazepam 0.5 mg 07/21/23 22:00 07/21/23 21:15 Clonazepam 0.5 Mg Tablet PO 01/17/24 21:59 0.5 mg HS ROB Administration Cyanocobalamin 1,000 mcg 07/22/23 06:30 07/22/23 06:32 Cyanocobalamin 1,000 Mcg Tablet PO 07/21/24 06:29 1,000 mcg DAILY@0600 ROB Administration Donepezil HCl 10 mg 07/22/23 06:30 07/22/23 06:32 Donepezil 10 Mg Tablet PO 07/21/24 06:29 10 mg DAILY@0600 ROB Administration Flecainide Acetate 50 mg 07/21/23 18:45 07/22/23 06:32 Flecainide Acetate 50 Mg Tablet PO 07/20/24 18:44 50 mg Q12H ROB Administration Sodium Chloride 1,000 mls @ 75 mls/hr 07/21/23 18:15 07/22/23 08:01 0.9% Sodium Chloride 1,000 Ml IV 07/20/24 18:14 75 mls/hr .[id number] ROB Administration Levothyroxine Sodium 100 mcg 07/22/23 06:30 07/22/23 06:32 Levothyroxine 100 Mcg Tablet PO 07/21/24 06:29 100 mcg DAILY.0630 ROB Administration Melatonin 15 mg 07/21/23 22:00 07/21/23 22:06 Melatonin 5 Mg Tablet PO 07/20/24 21:59 15 mg QHS ROB Administration Sodium Chloride 0 ml 07/21/23 11:35 07/21/23 18:42 Sodium Chloride 0.9 % 10 Ml Syringe IV-PUSH 07/20/24 11:34 10 ml PRN PRN Administration Flush A&P - Hospitalist Assessment/Plan (1) Weakness: (2) Fall: (3) Dehydration: (4) Acute kidney injury: (5) Afib: (6) Parkinson disease: (7) Hypothyroidism: Plan Magdaleno Valderrama is a 83 yo M with a pmh of Afib, Parkinson's Disease, hypothyroidism, and sleep apnea admitted for weakness, dehydration, and MELISSA. Patient is resting in bed at the time of exam. He states that his symptoms have improved, denying any lightheadedness or dizziness today. He has been able to ambulate to the restroom and had 2 BM this morning. He states that he didn't have any symptoms while going to the restroom, but felt unstable . He states that he didnot get much sleep last night, but notes having to urinate less frequently over the night. Patient had breakfast this morning and tolerated it well. Pt denies any other complaints at this time. Creatinine is downward trending at 1.04 todayand BUN at 30. Vitals are stable at the time of exam. PT and OT have been consulted. 1. Weakness 2. Fall 3. Dehydration 4. Acute Kidney Injury -Patient's symptoms likely due to dehydration due to diuretic home medications. Creatinine elevated to 1.42 at admission. -Continue to hold furosemide and spironolactone. -Continue IV fluids. -Creatinine downward trending to 1.04. Continue to trend. Chronic conditions - continue home medications for chronic conditions. Documented By: Yuliana Leiva MD, RES 07/22/23 [phone] Signed By: <Electronically signed by RES Yuliana Leiva> 07/22/23 1057 <Electronically signed by Ashwini Clancy MD> 07/22/[address] [facility] Work Phone: 1(398) 520-849512-22-2023 History and physical note Author Ashwini Clancy [facility] July 21, 2023 6:20pm Note Date/Time July 21, 2023 3:58pm [facility] [address] [place] [address] Hospitalist H&P Signed with Chandler Patient: Magdaleno Valderrama MR#: [id number] : 1940 Acct:[id number] Age/Sex: 83 / M Adm Date: 3 Loc: Room: [address] [place] [address] Type: ADM IN Attending Dr: Ashwini Clancy MD Copies to: MD Yuliana Holly MD, RES Christo Saab MD~ ADDENDUM1 Patient was personally seen by me on the day of encounter, reviewed his history and performed cobian elements of exam and formulated the plan of care and confirmedthe resident/interns note below. Patient with history of atrial fibrillation on flecainide presented to ER with complaint of generalized weakness. In the found of acute kidney injury and clinically appears dehydrated. His list of medication does include Lasix and spironolactone suspecting overdiuresis leading to acute kidney injury, dehydration and weakness. Given history of atrial fibrillation recent started on flecainide possibility of cardiac arrhythmia cannot be ruled out we will monitor closely. Given the creatinine clearance diuretics in view of acute kidney injury patient will require more than 2 midnights of hospital stay. Mental hydration. Consult PT/OT. Addendum Documented By: Ashwini Clancy MD 07/21/231819 Addendum Signed By: <Electronically signed by Ashwini Clancy MD> 07/21/231819 HPI DATE OF EXAMINATION: 07/21/23 CHIEF COMPLAINT: weakness, fatigue HISTORY OF PRESENT ILLNESS: Magdaleno Valderrama is a 83 yo M with a pmh of Afib, Parkinson's Disease, and sleep apnea, presenting with weakness and fatigue. Patient's son is present with him. Patient reports that he has been feeling weak for a few days now, but it has progressively worsened. He reports having SOB while walking or bending down and feels dizzy/lightheaded. Pt denies any chest pain, fever/chills, cough, congestion, or abdominal pain. He had a fall about 2 weeks ago and was evaluatedin the ED. Pt is on anticoagulation for A-fib. Pt does report having frequent urination, about every 2-3 hrs and about 7x throughout the night. He states thathe does not sleep well through the night because of this. Denies any hematuria or dysuria. In the ED, chest x- ray revealed no acute processes. Troponin was within normal limits. Labs were significant for BNP 248, creatinine 1.42, BUN 38, PT 24.1, PTT 42.0. Blood glucose normal. Vitals stable in the ED on room air. Pt denies any other complaints at this time. Review of Systems Review of Systems All other systems reviewed & are negative unless noted below or in HPI [facility] Medical History (Updated 07/21/23 @ 16:00 by David Reis PA-C) Afib Parkinson disease Sleep apnea Surgical History AICD (automatic cardioverter/defibrillator) present Social History Smoking Status: Former smoker Tobacco Type: cigarettes Substance Use Type: None Meds Medications and Allergies Allergies bacitracin Allergy (Verified 09/25/22 12:07) Unknown Reaction haloperidol [From Haldol] Allergy (Verified 09/25/22 12:07) Unknown Reaction neomycin [From Neosporin ([id number])] Allergy (Verified 09/25/22 12:07) Blister polymyxin B [From Neosporin ([id number])] Allergy (Verified 09/25/22 12:07) Blister Home Medications carbidopa 25 mg-levodopa 100 mg tablet 2 tab PO QID 09/25/22 [History Confirmed 07/21/23] clonazepam 0.5 mg tablet 0.5 mg PO HS 09/25/22 [History Confirmed 07/21/23] cyanocobalamin (vitamin B-12) 3,000 mcg capsule 50 mcg PO DAILY 09/25/22 [History Confirmed 07/21/23] levothyroxine 100 mcg tablet 100 mcg PO DAILY 09/25/22 [History Confirmed 07/21/23] apixaban 5 mg tablet (Eliquis) 5 mg PO BID 30 days #60 tabs 09/27/22 [Rx Confirmed 07/21/23] furosemide 40 mg tablet 40 mg PO DAILY 12/12/22 [History Confirmed 07/21/23] spironolactone 25 mg tablet 25 mg PO DAILY 12/12/22 [History Confirmed 07/21/23] vitamins A,C,L-lxxg-elvuiy 2,148 mcg-113 mg-45 mg-17.4 mg tablet (PreserVision AREDS) 2 tab PO BID 12/12/22 [History Confirmed 07/21/23] donepezil 10 mg tablet 10 mg PO DAILY 07/21/23 [History Confirmed 07/21/23] flecainide 50 mg tablet 50 mg PO Q12H 07/21/23 [History Confirmed 07/21/23] Exam Physical Exam Vital Signs: Temp Pulse Resp BP Pulse Ox O2 Del Method 97.7 F 69 20 115/66 97 Room Air 07/21/23 11:35 07/21/23 13:38 07/21/23 13:30 07/21/23 13:30 07/21/23 13:30 07/21/23 13:30 Const General: cooperative and frail appearing Orientation: alert, awake and oriented x3 HEENT Head: normal to inspection and no palpable skull fracture Ears: hearing grossly normal bilaterally Face and sinus: normal facial exam and face symmetric Other: nasal and oral mucosa dry on exam Eyes General: appearance normal, both eyes and all related structures Visual Sexton: normal visual sexton by confrontation Pupils: PERRL Neck Neck: normal visual inspection and full ROM Chest Chest palpation & inspection: normal inspection of the chest and normal palpation of entire chest wall Resp Effort & Inspection: normal respiratory effort, able to speak in complete sentences and symmetric chest movement Auscultation: clear to auscultation bilaterally, no crackles, no rales, no rhonchi and no wheezes Cardio Rate: regular rate Rhythm: regular rhythm Pulses: ulnar radial pulses present and dorsalis pedis present GI Inspection: normal to inspection and non-distended Palpation: soft Percussion: normal to percussion Auscultation: normal bowel sounds Skin General: no rashes or lesions noted Neuro General: patient alert, patient awake, patient oriented x3, normal light touch, pain and propioception and CN's II-XI intact bilaterally Extrem General: normal to inspection Results Lab Results Labs: Laboratory Last Values Corrected WBC 7.7 X10E3/uL (4.1-10.5) 07/21/23 12:03 Uncorrected WBC Count 7.7 x10E3/uL (4.1-10.5) 07/21/23 12:03 RBC 4.46 X10E6/uL (3.90-5.60) 07/21/23 12:03 Hgb 13.6 g/dL (13.0-17.0) 07/21/23 12:03 Hct 40.9 % (38.8-50.0) 07/21/23 12:03 MCV 91.8 fl (83.5-101) 07/21/23 12:03 MCH 30.4 pg (27.5-35.2) 07/21/23 12:03 MCHC 33.2 g/dL (32.5-35.6) 07/21/23 12:03 RDW 14.9 % (12.0-14.8) H 07/21/23 12:03 Plt Count 192 x10E3/uL (150-450) 07/21/23 12:03 MPV 8.2 fl (6.6-10.1) 07/21/23 12:03 Neut % (Auto) 75.1 % (.) 07/21/23 12:03 Lymph % (Auto) 14.3 % (.) 07/21/23 12:03 [place] % (Auto) 9.5 % (.) 07/21/23 12:03 Eos % (Auto) 0.6 % (.) 07/21/23 12:03 Baso % (Auto) 0.5 % (.) 07/21/23 12:03 Nucleat RBC Rel Count 0.1 /100 WBC (0-0.5) 07/21/23 12:03 Neut # (Auto) 5.8 x10E3/uL (1.8-7.7) 07/21/23 12:03 Lymph # (Auto) 1.1 x10E3/uL (1.00-4.8) 07/21/23 12:03 [place] # (Auto) 0.7 x10E3/uL (0.0-0.8) 07/21/23 12:03 Eos # (Auto) 0.0 x10E3/uL (0.0-0.45) 07/21/23 12:03 Baso # (Auto) 0.0 x10E3/uL (0.0-0.2) 07/21/23 12:03 Monocyte Dist Width 15.92 % (0.00-20.00) 07/21/23 12:03 PT 24.1 Seconds (9.0-12.9) H 07/21/23 12:03 INR 2.2 07/21/23 12:03 APTT 42.0 Seconds (25.1-36.5) H 07/21/23 12:03 PHA Creatinine Clear 31.23 07/21/23 12:03 Sodium 135 mmol/L (136-145) L 07/21/23 12:03 Potassium 4.3 mmol/L (3.5-5.1) 07/21/23 12:03 Chloride 99 mmol/L (98-107) 07/21/23 12:03 Carbon Dioxide 31.7 mmol/L (21.0-31.0) H 07/21/23 12:03 Anion Gap 8.6 mEq/L (6.0-15.0) 07/21/23 12:03 BUN 38 mg/dL (7-25) H 07/21/23 12:03 Creatinine 1.42 mg/dL (0.70-1.30) H 07/21/23 12:03 Est GFR (CKD-EPI) 48.423 mL/Min 07/21/23 12:03 Glucose 97 mg/dL (70-100) 07/21/23 12:03 Calcium 10.1 mg/dL (8.6-10.3) 07/21/23 12:03 Magnesium 2.5 mg/dL (1.9-2.7) 07/21/23 12:03 Total Bilirubin 0.8 mg/dl (0.3-1.0) 07/21/23 12:03 AST 18 U/L (13-39) 07/21/23 12:03 ALT 5 U/L (7-52) L 07/21/23 12:03 Alkaline Phosphatase 74 U/L (34-104) 07/21/23 12:03 Total Creatine Kinase 27 U/L (30-223) L 07/21/23 12:03 Troponin I High Sens 9.3 pg/mL (0.0-20.0) 07/21/23 12:03 B-Natriuretic Peptide 248.0 pg/mL (5-100) H 07/21/23 12:03 Total Protein 6.9 gm/dL (6.4-8.9) 07/21/23 12:03 Albumin 4.3 gm/dL (3.5-5.7) 07/21/23 12:03 Globulin 2.6 gm/dL 07/21/23 12:03 Albumin/Globulin Ratio 1.7 07/21/23 12:03 Urine Color Yellow (Yellow) 07/21/23 12:20 Urine Appearance Clear (Clear) 07/21/23 12:20 Urine pH 5.5 (5.0-9.0) 07/21/23 12:20 Ur Specific [place] 1.011 (1.001-1.030) 07/21/23 12:20 Urine Protein Negative mg/dL (Negative) 07/21/23 12:20 Urine Glucose (UA) Normal mg/dL (Normal) 07/21/23 12:20 Urine Ketones Negative (Negative) 07/21/23 12:20 Urine Occult Blood 2+ (Negative) H 07/21/23 12:20 Urine Nitrite Negative (Negative) 07/21/23 12:20 Urine Bilirubin Negative (Negative) 07/21/23 12:20 Urine Urobilinogen Normal mg/dL (Normal) 07/21/23 12:20 Ur Leukocyte Esterase Negative (Negative) 07/21/23 12:20 Urine RBC 50-100 /HPF (0-4) H 07/21/23 12:20 Urine WBC 0-1 /HPF (0-4) 07/21/23 12:20 Ur Squamous Epith Cells None seen /HPF (0-2) 07/21/23 12:20 Urine Bacteria None seen (None Seen) 07/21/23 12:20 Hyaline Casts 0-8 /LPF (0-8) 07/21/23 12:20 Assessment & Plan Assessment/Plan (1) Weakness: (2) Fall: (3) Dehydration: (4) Acute kidney injury: (5) Afib: (6) Parkinson disease: (7) Hypothyroidism: Plan Magdaleno Valderrama is a 83 yo M with a pmh of Afib, Parkinson's Disease, hypothyroidism, and sleep apnea, presenting with weakness and fatigue. Patient reports that he has been feeling weak for a few days now, but it has progressively worsened. Pt reports SOB, lightheadedness, and dizziness. Pt denies any chest pain, fever/chills, cough, congestion, or abdominal pain. He had a fall about 2 weeks ago and was evaluated in the ED. Pt is on anticoagulation for A-fib. Pt does report having frequent urination, about every2-3 hrs and about 7x throughout the night. He states that he does not sleep wellthrough the night because of this. Pt is on furosemide and spironolactone at home. Denies any hematuria or dysuria. In the ED, chest x-ray revealed no acute processes. Troponin was within normal limits. Labs were significant for BNP 248,creatinine 1.42, BUN 38, PT 24.1, PTT 42.0. Blood glucose normal. Vitals stable in the ED on room air. Admit for medical management. 1. Weakness 2. Fall 3. Dehydration 4. Acute Kidney Injury -Patient's symptoms likely due to dehydration due to diuretic home medications. Creatinine elevated to 1.42. -Hold furosemide and spironolactone. -Continue IV fluids. -Continue to trend creatinine. Chronic conditions - continue home medications for chronic conditions. IP vs OBS Justification Based on differential dx, clinical care plan, and risk of adverse events, if untreated, in my clinical judgement this patient requires an acute care setting as: INPATIENT because of an expectation of an over 2 midnight stay. Estimated length of stay (# of days): 3 Documented By: Yuliana Leiva MD, RES 07/21/23 143 6 Signed By: <Electronically signed by MD CANDIDO Leiva> 07/21/23 1558 <Electronically signed by Ashwini Clancy MD> 07/21/23 1818 [facility] Work Phone: 1(803) 362-260712-22-2023 NoteHNO ID: [id number] Author: Joycelyn Francisco RPh Service: ? Author Type: Pharmacist Type: Progress Notes Filed: 07/21/2023 1:23 PM Note Text: [facility] Discontinuation Assessment: Disease group: Neurology Medication: INBRIJA 42 MG CAPSULE WITH INHALATION DEVICE Discontinue reason: Side effect intolerance [facility] History of Present illness Narrative* Trung Lopez MA - 07/13/2023 2:00 PM EST Patient is here for an EKG visit ordered by Dr. Cesar due to afib. Dr. Nica García MD is in suite physician. Patient is here due to recent medication change. Patient was in office on 07/05 and started on Flecainide 50mg BID. Patient son also phoned into office in between visits stating patient is currently taking Aricept, which may cause side effects. Per Dr. Edel Cesar MD patient to come back for EKG visit 3 days after initiating Flecainide. Medication list Updated verbally withpatient and son in office. Patient son expresses concern that patient is falling much more than usual due to weakness from afib. Also complains of shortness of breath on exertion. Discussed with Chery Blackmon RN prior to discharge. To Dr. Cesar for review. Vitals: 07/13/23 1430 BP: 118/82 BP Location: Left arm Patient Position: Sitting Pulse: 70 Weight: 63 kg (139 lb) Height: 1.727 m (5' 8 ) [facility] Work Phone: 1(693) 808-840612-14-2023 Miscellaneous Notes* Telephone Encounter - Martha Richmond - 07/13/2023 10:30 AM EST Son phoned requesting refill as follows: Updated to 10mg per son - states he's been taking this dose for years. [facility] - he's been out for 3 days and we sent the incorrect dose. Requested Prescriptions Pending Prescriptions Disp Refills donepezil (ARICEPT) 10 mg tablet 30 tablet 11 Sig: Take 1 tablet by mouth once daily. Take 1 tablet by mouth daily. Upon approval, script will be sent electronically to the patient's pharmacy. Martha Soria, [employer]in[employer] III [facility] Miscellaneous Notes* Telephone Encounter - Martha Richmond - 07/10/2023 2:26 PM EST Son requesting refill as follows: Last [facility] May 2023 with [facility] Requested Prescriptions Pending Prescriptions Disp Refills donepezil (ARICEPT) 5 mg tablet 30 tablet 11 Sig: Take 1 tablet by mouth daily. Upon approval, script will be sent electronically to the patient's pharmacy. Martha Soria, [employer]in[employer] Tender III documented in this [facility]12-[facility]23 History of Present illness Narrative* Edel Cesar MD - 07/05/2023 2:20 PM EST Subjective Magdaleno Valderrama is a 83 y.o. male Chief Complaint Follow-up HPI Patient is here for a history of atrial fibrillation with previous cardioversion around 6 months ago, complete heart block status post permanent pacemaker implantation, pulmonary hypertension and hyperlipidemia. Since last time I saw him his main complaint is progression of his Parkinson disease and symptoms or orthostatic hypotension related to that. He also describes some increasing shortness of breath recently. His recent device check showed recurrence of his atrial fibrillation. The patienthad no previous history of coronary artery disease his previous echocardiogram showed normal LV systolic function. Patient report compliant with his medication. Assessment 1. Atrial fibrillation status post recent cardioversion. He remained in sinus rhythm for a few months but he had a recurrence was documented based on his device check and EKG 2. complete heart block and severe bradycardia status post dual-chamber pacemaker implantation 3. 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 Hypothyroidism on replacement therapy 5. Abnormal echocardiogram moderate to severe left atrial dilatation and mild to moderate mitral regurgitation but preserved LV systolic function there is evidence of pulmonary hypertension 6. Hyperlipidemia on atorvastatin 7. Recent presentation with volume overload and heart failure. Resolved. His weight went down from 168 to 139 pound. Improved 8. Parkinson disease 9. Mild to moderate pulmonary hypertension with PA pressure around 45 we will continue to monitor and consider repeating echo down the road Plan 1. I discussed with the patient and his son treatment option at great length. We discussed rhythm control strategy versus heart rate control strategy. Patient felt better when he is in sinus. We discussed antiarrhythmic. Patient has no documented history of coronary artery disease. His LV systolic function is normal. I felt flecainide can be used safely. Will start that at 50 twice daily and repeat EKG if remain in A-fib in the next few weeks we will proceed with cardioversion 2. I advised him to monitor for his weight and volume status and notify me with changes 4. I reviewed his recent device check 5. I will see him back in 4 months after cardioversion hopefully Review of Systems Respiratory: Positive for shortness of breath. Neurological: Positive for dizziness. All other systems reviewed and are negative. Visit Vitals BP 122/60 (BP Location: Left arm, Patient Position: Sitting) Pulse 60 Ht 1.702 m (5' 7 ) Wt 62.6 kg (138 lb) BMI 21.61 kg/m Smoking Status Former BSA 1.72 m Objective Physical Exam Constitutional: Appearance: Normal appearance. He is normal weight. HENT: Nose: Nose normal. Neck: Vascular: No carotid bruit. Cardiovascular: Rate and Rhythm: Normal rate. Rhythm irregularly irregular. Pulses: Normal pulses. Heart sounds: Normal heart sounds. Pulmonary: Effort: Pulmonary effort is normal. Abdominal: General: Bowel sounds are normal. Palpations: Abdomen is soft. Genitourinary: Rectum: Normal. Musculoskeletal: General: Normal range of motion. Cervical back: Normal range of motion. Right lower leg: No edema. Left lower leg: No edema. Skin: General: Skin is warm and dry. Neurological: General: No focal deficit present. Mental Status: He is alert. Psychiatric: Mood and Affect: Mood normal. Behavior: Behavior normal. Thought Content: Thought content normal. Judgment: Judgment normal. Current Medications Current Outpatient Medications: atorvastatin (Lipitor) 20 mg tablet, Take 1 tablet (20 mg) by mouth once daily at bedtime., Disp: ,Rfl: carbidopa-levodopa (Sinemet) 25-100 mg tablet, Take by mouth., Disp: , Rfl: clonazePAM (KlonoPIN) 0.5 mg tablet, Take by mouth., Disp: , Rfl: cyanocobalamin, vitamin B-12, (Vitamin B-12) 1,000 mcg tablet extended release, Take 1 tablet (1,000 mcg) by mouth once daily., Disp: , Rfl: Eliquis 5 mg tablet, Take 1 tablet (5 mg) by mouth 2 times a day., Disp: , Rfl: entacapone (Comtan) 200 mg tablet, Take 1 tablet (200 mg) by mouth 3 times a day., Disp: , Rfl: furosemide (Lasix) 40 mg tablet, Take 1 tablet (40 mg) by mouth once daily., Disp: , Rfl: levodopa (Inbrija) 42 mg capsule, w/inhalation device, Place 2 capsules into inhaler and inhale 3 times a day., Disp: , Rfl: levothyroxine (Synthroid, Levoxyl) 100 mcg tablet, Take 1 tablet (100 mcg) by mouth., Disp: , Rfl: rasagiline (Azilect) 1 mg tablet, Take 1 tablet (1 mg) by mouth once daily., Disp: , Rfl: spironolactone (Aldactone) 25 mg tablet, Take 1 tablet (25 mg) by mouth once daily., Disp: , Rfl: vitamin D3-vitamin K2 1,250-200 mcg capsule, Take 1 tablet by mouth once daily., Disp: , Rfl: flecainide (Tambocor) 50 mg tablet, Take 1 tablet (50 mg) by mouth 2 times a day., Disp: 60 tablet,Rfl: 11 Assessment/Plan 1. Persistent atrial fibrillation (CMS/HCC) ECG 12 Lead Follow Up In Cardiology ECG 12 Lead flecainide (Tambocor) 50 mg tablet 2. Complete heart block (CMS/HCC) Follow Up In Cardiology 3. Abnormal echocardiogram 4. Pacemaker 5. Pulmonary hypertension (CMS/HCC) 6. Chronic right heart failure (CMS/HCC) Follow Up In Cardiology documented in this [facility] Work Phone: [phone] 679-992112-06-2023 Instructions* Patient Instructions* Katt Fabian LPN - 07/05/2023 2:20 PM EST Please bring all medicines, vitamins, and herbal supplements with you when you come to the office. Prescriptions will not be filled unless you are compliant with your follow up appointments or have a follow up appointment scheduled as per instruction of your physician. Refills should be requested at the time of your visit. Fall Prevention Education Given Flecainide 50 mg one tablet two times daily EKG-Jul 4 month follow up documented in this [facility] Work Phone: [phone]) 101-371911-27-2023 NoteHNO ID: [id number] Author: Ebony Miller Service: ? Author Type: ? Type: Progress Notes Filed: 06/26/2023 8:58 AM Note Text: [facility] received prescription(s) for Inbrija from Dr. Efren Carbajal's office. Benefits investigation was conducted, indicating that a prior authorization is required. PA was approved with details listed below: Plan Name: [employer] PA reference number: [id number] Approval Dates: through 07/30/2023 Copay is high (>$850) due to the different phases of patient's traditional Medicare part D plan. It is estimated that the patient's copays will be somewhat similar until (s)he gets through the medicare coverage gap (can take up to ~$3700) after which future fills are expected to be ~$308 monthly thereafter. However, Medicare Part D phases will reset on 07/31/2023 and co-pay structures will be changing slightly in 2023 and patient's co-pay may change. There is no funding available for patients diagnosis at this time. Patient will be referred to BMSPAF ([employer]) Assistance Program. Note will be update once pt is contacted. Ebony Miller CPhT Cardiology, Neurology AND Infectious Disease [facility] NoteHNO ID: [id number] Author: Lars Sebastian RPh Service: ? Author Type: Pharmacist Type: Progress Notes Filed: 06/27/2023 2:06 PM Note Text: [facility] received prescription(s) for Inbrija from Dr. Carbajal's office. Benefits investigation was conducted, indicating that a prior authorization is required. PA was approved with details listed below: Plan Name: [employer] Part D PA reference number: [id number] Approval Dates: approved through 07-30-23 Pt's copay is $850.31 (patient's son would like full shipment of 5 boxes versus seeing if 1 box only would be lower copay amount) . Shipment has been arranged, and pt will receive medication(s) on 06-29-23. A full drug interaction report was conducted, and no clinically significant interactions identified. I reviewed with patient's son appropriate dose and dosing frequency, administration directions (Inhale 2 capsules by mouth as needed for wearing off episodes. Use no more than 5 times daily), potential side effects, ability to self-administer and proper storage and handling requirements. S/he expressed understanding of the information we provided today, and received our contact information for the pharmacy if s/he had any other questions. PAST MEDICAL HISTORY Diagnosis Date Hypothyroid surgical: 4-5 cm nodule. Malignant neoplasm of colon, unspecified site 1996 Colon cancer (blood in stool test card) Unspecified sleep apnea 1995 Sleep apnea ALLERGIES Allergen Reactions Neosporin [Neomycin* Problem List Noted Noted By Resolved Resolved By Primary parkinsonism 08/25/2022 Efren Carbajal, DO No Inadequate sleep hygiene 08/25/2022 Efren Carbajal, DO No Levodopa-induced dyskinesia 08/25/2022 Efren Carbajal, No Disturbance in sleep behavior 08/25/2022 Efren Carbajal, DO No Grief 08/25/2022 Efren Carbajal, DO No Mixed hyperlipidemia 12/31/2015 Aycinena, Gabriel R No Unspecified vitamin D deficiency 11/07/2011 Aycinena, Gabriel R No 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 Aycinena, Gabriel R No 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) 04/23/2009 Aycinena, Gabriel R No Fatigue 04/23/2009 Aycinena, Gabriel R No Constipation 04/23/2009 Aycinena, Gabriel R No 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 Patient confirmed: Yes Med/dose confirmed: Yes Supplies needed: Welcome packet Copay amount: 850.31 Copay form of payment: Credit card on file Payment confirmed: Yes Delivery method: FedEx Signature required: No Delivery address: [address] [place] [address] [address]; [place] [address] Delivery date: 06/29/23 [facility] Visit Assessment - Neurology: Assessment to use: Initial Vaccination Assessment: Annual influenza vaccination reminder: Yes Date of influenza vaccination reminder: 06/27/2023 Vaccination assessment completed: Yes Date of most recent vaccination assessment: 06/27/2023 Treatment Plan Information: Treatment Plan Information: Magdaleno Valderrama starting Inbrija Indication is Parkinson's Disease Dosing checked and meets house father guidelines The dose of INBRIJA is 2 capsules. Do not take more than 1 dose (2 capsules) for any OFF period. ? Take an INBRIJA dose as soon as you feel Parkinson's symptoms start to return. ? Do not take more than 5 doses of INBRIJA in 1 day. Patient was instructed on storage recommendations, and use. Encouraged patient to view online videos to reinforce technique Although virtual device teaching was provided, patient was also encouraged to call [employer] or visit [employer] for resources including access to medical experts and live or virtual learning events. Caution given re: excessive drowsiness, low blood pressure, hallucinations as possible side effects Most common SE cough URI, nausea, change in color of saliva Due for TDAP, Shingrix, Pneumococcal, Covid, Influenza vaccines. DDI Class C Monitor therapy: hypotension and blood pressure lowering agents. Carbidopa/Levodopa, Inbrija Magdaleno Valderrama starting Inbrija Although virtual device teaching was provided, patient was also encouraged to call [employer] or visit [employer] for resources including access to medical experts and live or virtual learning events. Caution given re: excessive drowsiness, low blood pressure, hallucinations as possible side effects Most common SE cough URI, nausea, change in color of saliva Estimated Treatment Duration: Until disease progression or unacceptable toxicity Initial Assessment: Current and prior medication therapy assessment completed: Yes Patient device teaching: N/A Verification of patient acceptance and understanding of injection technique: N/A Baseline lab assessment (TSH, LFTs, CBC): Yes Counseling on intended outcome of therapy: Yes Lars Sebastian [facility]11-27-2023 History of Present illness Narrative* Ebony Miller - 06/26/2023 7:42 AM EST [facility] received prescription(s) for Inbrija from Dr. Efren Carbajal's office. Benefits investigation was conducted, indicating that a prior authorization is required. BERE was approved with details listed below: Plan Name: [employer] PA reference number: [id number] Approval Dates: through 07/30/2023 Copay is high (>$850) due to the different phases of patient's traditional Medicare part D plan.It is estimated that the patient's copays will be somewhat similar until (s)he gets through the medicare coverage gap (can take up to ~$3700) after which future fills are expected to be ~$308 monthlythereafter. However, Medicare Part D phases will reset on 07/31/2023 and co-pay structures will be changing slightly in 2023 and patient's co-pay may change. There is no funding available for patients diagnosis at this time. Patient will be referred to BMSPAF ([employer] Assistance Program. Note will be update once pt is contacted. Ebony Miller CPhT Cardiology, Neurology & Infectious Disease [facility] documented in this [facility]11-21-2023 NoteHNO ID: [id number] Author: Efren Carbajal, DO Service: ? Author Type: Physician Type: Progress Notes Filed: 06/20/2023 2:42 PM Note Text: VIRTUAL VISIT PROGRESS NOTE This is a virtual visit using [employer] Video Visit. It required patient-provider interaction for the medical decision making as documented below. I have communicated my name and active licensure. The patient's identity and physical location were verified at the time of this visit. Either the patient or their legal new accounts representative has been informed of the risks and benefits of -- and alternatives to -- treatment through a remote evaluation and consents to proceed with the evaluation remotely. Magdaleno Valderrama is a 83 year old male seen for parkinsonism in the afternoon The patient is having more stiffness and bad days. More trouble with walking. He is more unstable on his feet but he has been extra carefull - more stumbles but no falls since the last visit in early April. He was not contacted about the U-STEP Walking Stabilizer Walker. He did not get contacted about the U-STEP or INBRIJA (levodopa inhalation powder) . Medications 6 AM 10 AM 2 PM 6 PM Sinemet (carbidopa/levodopa) CR 50/200 1 1 1 1 Sinemet (carbidopa/levodopa) 25/100 1.5 1.5 1.5 1.5 Aricept (donepezil) 5mg x x x 1 Clonazepam 0.5 mg x x x 1 Miralax as needed Melatonin 15 mg x x x 1 INBRIJA (levodopa inhalation powder) 2 capsules up to 5x daily The biggest issue is AM wearing-off. HISTORY REVIEWED (electronic chart updated): PAST MEDICAL HISTORY Diagnosis Date Hypothyroid surgical: 4-5 cm nodule. Malignant neoplasm of colon, unspecified site 1996 Colon cancer (blood in stool test card) Unspecified sleep apnea 1995 Sleep apnea PAST SURGICAL HISTORY Procedure Laterality Date COLECTOMY PARTIAL W/ANASTOMOSIS 1996 r Hemicolectomy PAST SURGICAL HISTORY OF skin removal, skin peel on head. RPR 1ST INGUN HRNA AGE 5 YRS/> REDUCIBLE Hernia repair, inguinal THYROIDECTOMY TOTAL/COMPLETE 2009 FAMILY HISTORY Problem Relation Age of Onset Diabetes Mother age 87 Thyroid Paternal Grandmother goiter Cancer Father metastatic prostate Ca. agfe 83 None Son None Son None Son Heart Father Social History Tobacco Use Smoking status: Former Packs/day: 1.00 Years: 20.00 Additional pack years: 0.00 Total pack years: 20.00 Types: Cigarettes Smokeless tobacco: Never Tobacco comments: quit many yrs ago Substance Use Topics Alcohol use: No Drug use: No Current Outpatient Medications Medication Sig furosemide (LASIX) 40 mg tablet Take 1 tablet by mouth three times a day. carbidopa-levodopa (SINEMET 25-100) 25-100 mg per tablet Take 1.5 tablets of immediate release levodopa/carbidopa 25/100 mg at 6 AM, 10 AM, 2 PM, and 6 PM carbidopa-levodopa CR (SINEMET CR) 50-200 mg per tablet Take 1 tablet of controlled release levodopa/carbidopa 50/200 mg at 6 AM, 10 AM, 2 PM, and 6 PM levodopa (INBRIJA) 42 mg Inhale 2 capsules as instructed five times daily. clonazePAM (KLONOPIN) 0.5 mg tablet Take by mouth. donepezil (ARICEPT) 5 mg tablet TAKE 1 TABLET BY MOUTH EVERY MORNING FOR THE FIRST MONTH ELIQUIS 5 mg tab(s) Take 5 mg by mouth twice daily. vit C/E/Zn/coppr/lutein/zeaxan (PRESERVISION AREDS-2 ORAL) Take by mouth. levothyroxine (SYNTHROID) 100 mcg tablet 1.5 tab on Mondays, one other 6 days. allopurinol (ZYLOPRIM) 300 mg tablet Take 1 tablet by mouth once daily. atorvastatin 20 mg tablet Take 20 mg by mouth once daily. Cholecalciferol, Vitamin D3, 25 mcg (1,000 unit) cap Take 1,000 Units by mouth once daily. cyanocobalamin(VITAMIN B-12 500 MCG TAB) Take one(1) tablet daily. No current facility-administered medications for this visit. ALLERGIES Allergen Reactions Neosporin [Neomycin* REVIEW OF SYSTEMS: NEURO: no numbness or paresthesias, no weakness of the extremities, and no headache PHYSICAL EXAMINATION: VIDEO EXAM: (if completed, performed via video enabled technology) No exam performed ASSESSMENT: No diagnosis found. PLAN: Rx for U-STEP Walking Stabilizer Walker Start INBRIJA (levodopa inhalation powder) for AM wearing off Continue current antiparkinsonian regimen as dosed. Patient Instructions Medications 6 AM 10 AM 2 PM 6 PM Sinemet (carbidopa/levodopa) CR 50/200 1 1 1 1 Sinemet (carbidopa/levodopa) 25/100 1.5 1.5 1.5 1.5 Aricept (donepezil) 5mg x x x 1 Clonazepam 0.5 mg x x x 1 Miralax as needed Melatonin 15 mg x x x 1 INBRIJA (levodopa inhalation powder) 2 capsules up to 5x daily I spent a total of 18 minutes on the date of the service which included preparing to see the patient, [id number] patient care, completing clinical documentation, obtaining and/or reviewing separately obtained history, counseling and educating the patient/family/caregiver, ordering medications, tests, or procedures, communicating with other HCPs (not separately (more content not included)...[facility]11-21-2023 Instructions* Patient Instructions* Efren Carbajal, DO - 06/20/2023 2:40 PM EST Medications 6 AM 10 AM 2 PM 6 PM Sinemet (carbidopa/levodopa) CR 50/200 1 1 1 1 Sinemet (carbidopa/levodopa) 25/100 1.5 1.5 1.5 1.5 Aricept (donepezil) 5mg x x x 1 Clonazepam 0.5 mg x x x 1 Miralax as needed Melatonin 15 mg x x x 1 INBRIJA (levodopa inhalation powder) 2 capsules up to 5x daily documented in this [facility]11-21-2023 History of Present illness Narrative* Efren Carbajal DO - 06/20/2023 2:22 PM EST VIRTUAL VISIT PROGRESS NOTE This is a virtual visit using [employer] Video Visit. It required patient- provider interaction for the medical decision making as documented below. I have communicated my name and active licensure. The patient's identity and physical location wereverified at the time of this visit. Either the patient or their legal new accounts representative has been informed of the risks and benefits of -- and alternatives to -- treatment through a remote evaluation andconsents to proceed with the evaluation remotely. aMgdaleno Valderrama is a 83 year old male seen for parkinsonism in the afternoon The patient is having more stiffness and bad days. More trouble with walking. He is more unstable on his feet but he has been extra carefull - more stumbles but no falls since the last visit in earlyApril. He was not contacted about the U-STEP Walking Stabilizer Walker. He did not get contacted about the U-STEP or INBRIJA (levodopa inhalation powder) . Medications 6 AM 10 AM 2 PM 6 PM Sinemet (carbidopa/levodopa) CR 50/200 1 1 1 1 Sinemet (carbidopa/levodopa) 25/100 1.5 1.5 1.5 1.5 Aricept (donepezil) 5mg x x x 1 Clonazepam 0.5 mg x x x 1 Miralax as needed Melatonin 15 mg x x x 1 INBRIJA (levodopa inhalation powder) 2 capsules up to 5x daily The biggest issue is AM wearing-off. HISTORY REVIEWED (electronic chart updated): PAST MEDICAL HISTORY Diagnosis Date Hypothyroid surgical: 4-5 cm nodule. Malignant neoplasm of colon, unspecified site 1996 Colon cancer (blood in stool test card) Unspecified sleep apnea 1995 Sleep apnea PAST SURGICAL HISTORY Procedure Laterality Date COLECTOMY PARTIAL W/ANASTOMOSIS 1996 r Hemicolectomy PAST SURGICAL HISTORY OF skin removal, skin peel on head. RPR 1ST INGUN HRNA AGE 5 YRS/> REDUCIBLE Hernia repair, inguinal THYROIDECTOMY TOTAL/COMPLETE 2009 FAMILY HISTORY Problem Relation Age of Onset Diabetes Mother age 87 Thyroid Paternal Grandmother goiter Cancer Father metastatic prostate Ca. agfe 83 None Son None Son None Son Heart Father Social History Tobacco Use Smoking status: Former Packs/day: 1.00 Years: 20.00 Additional pack years: 0.00 Total pack years: 20.00 Types: Cigarettes Smokeless tobacco: Never Tobacco comments: quit many yrs ago Substance Use Topics Alcohol use: No Drug use: No Current Outpatient Medications Medication Sig furosemide (LASIX) 40 mg tablet Take 1 tablet by mouth three times a day. carbidopa-levodopa (SINEMET 25-100) 25-100 mg per tablet Take 1.5 tablets of immediate release levodopa/carbidopa 25/100 mg at 6 AM, 10 AM, 2 PM, and 6 PM carbidopa-levodopa CR (SINEMET CR) 50-200 mg per tablet Take 1 tablet of controlled release levodopa/carbidopa 50/200 mg at 6 AM, 10 AM, 2 PM, and 6 PM levodopa (INBRIJA) 42 mg Inhale 2 capsules as instructed five times daily. clonazePAM (KLONOPIN) 0.5 mg tablet Take by mouth. donepezil (ARICEPT) 5 mg tablet TAKE 1 TABLET BY MOUTH EVERY MORNING FOR THE FIRST MONTH ELIQUIS 5 mg tab(s) Take 5 mg by mouth twice daily. vit C/E/Zn/coppr/lutein/zeaxan (PRESERVISION AREDS-2 ORAL) Take by mouth. levothyroxine (SYNTHROID) 100 mcg tablet 1.5 tab on Mondays, one other 6 days. allopurinol (ZYLOPRIM) 300 mg tablet Take 1 tablet by mouth once daily. atorvastatin 20 mg tablet Take 20 mg by mouth once daily. Cholecalciferol, Vitamin D3, 25 mcg (1,000 unit) cap Take 1,000 Units by mouth once daily. cyanocobalamin(VITAMIN B-12 500 MCG TAB) Take one(1) tablet daily. No current facility-administered medications for this visit. ALLERGIES Allergen Reactions Neosporin [Neomycin* REVIEW OF SYSTEMS: NEURO: no numbness or paresthesias, no weakness of the extremities, and no headache PHYSICAL EXAMINATION: VIDEO EXAM: (if completed, performed via video enabled technology) No exam performed ASSESSMENT: No diagnosis found. PLAN: Rx for U-STEP Walking Stabilizer Walker Start INBRIJA (levodopa inhalation powder) for AM wearing off Continue current antiparkinsonian regimen as dosed. Patient Instructions Medications 6 AM 10 AM 2 PM 6 PM Sinemet (carbidopa/levodopa) CR 50/200 1 1 1 1 Sinemet (carbidopa/levodopa) 25/100 1.5 1.5 1.5 1.5 Aricept (donepezil) 5mg x x x 1 Clonazepam 0.5 mg x x x 1 Miralax as needed Melatonin 15 mg x x x 1 INBRIJA (levodopa inhalation powder) 2 capsules up to 5x daily I spent a total of 18 minutes on the date of the service which included preparing to see the patient, [id number] patient care, completing clinical documentation, obtaining and/or reviewing separately obtained history, counseling and educating the patient/family/caregiver, ordering medications, hitesh ts, or procedures, communicating with other HCPs (not separately reported), and communicating results to the patient/family/caregiver Efren Carbajal DO documented in this encounterShel[facility]10-[facility]23 NoteHNO ID: [id number] Author: Efren Carbajal DO Service: ? Author Type: Physician Type: Progress Notes Filed: 05/05/2023 12:37 PM Note Text: [facility] - FOLLOW UP EVALUATION Amy Zuñiga MD [address] [facility] [address] Magdaleno Valderrama is a 82 year old right-handed male with a history of parkinsonism. He is seen with a son. Interval History Since Last Visit: For 2-months - he has worsening sleep, increased tremor and a few falls. He has leg aching. He will go to bed at 9P and wake up at midnight and stay awake. He is having more issues with walking - easily fatigued. He was unable to get INBRIJA (levodopa inhalation powder) 2/2 cost. He goes to a PD class in [place] 3x weekly. He has more difficulty getting out of a low chair. He does not use a cane properly. Parkinson's Medications Schedule: Medications 6 AM 10 AM 2 PM 6 PM Sinemet (carbidopa/levodopa) CR 50/200 1 1 1 1 Sinemet (carbidopa/levodopa) 25/100 1.5 1.5 1.5 1.5 Aricept (donepezil) 5mg x x x 1 Clonazepam 0.5 mg x x x 1 Miralax as needed Melatonin 15 mg x x x 1 Previous Parkinson's Medications: None Allergies: ALLERGIES Allergen Reactions Neosporin [Neomycin* Current Medications: Current Outpatient Medications Medication Sig furosemide (LASIX) 40 mg tablet Take 1 tablet by mouth three times a day. carbidopa-levodopa (SINEMET 25-100) 25-100 mg per tablet Take 1.5 tablets of immediate release levodopa/carbidopa 25/100 mg at 6 AM, 10 AM, 2 PM, and 6 PM carbidopa-levodopa CR (SINEMET CR) 50-200 mg per tablet Take 1 tablet of controlled release levodopa/carbidopa 50/200 mg at 6 AM, 10 AM, 2 PM, and 6 PM levodopa (INBRIJA) 42 mg Inhale 2 capsules as instructed five times daily. clonazePAM (KLONOPIN) 0.5 mg tablet Take by mouth. donepezil (ARICEPT) 5 mg tablet TAKE 1 TABLET BY MOUTH EVERY MORNING FOR THE FIRST MONTH ELIQUIS 5 mg tab(s) Take 5 mg by mouth twice daily. vit C/E/Zn/coppr/lutein/zeaxan (PRESERVISION AREDS-2 ORAL) Take by mouth. levothyroxine (SYNTHROID) 100 mcg tablet 1.5 tab on Mondays, one other 6 days. allopurinol (ZYLOPRIM) 300 mg tablet Take 1 tablet by mouth once daily. atorvastatin 20 mg tablet Take 20 mg by mouth once daily. Cholecalciferol, Vitamin D3, 25 mcg (1,000 unit) cap Take 1,000 Units by mouth once daily. cyanocobalamin(VITAMIN B-12 500 MCG TAB) Take one(1) tablet daily. No current facility-administered medications for this visit. Objective: Vital Signs: BP 120/59 Pulse 82 Temp 36.2 ?C (97.1 ?F) Wt 62.6 kg (138 lb) SpO2 97% BMI 20.98 kg/m? General Medical Examination: General Description of Patient: Well appearing, comfortable and Thin Head:normocephalic, atraumatic Neck:No bruits, full range of movement, supple Cardiac: Regular rate and rhythm, no murmur Extremities: Muscle atrophy of thighs is noted and No leg edema, pulses intact, no rash or venous stasis changes. Neurological Exam Mental Status Awake and alert. Recent and remote memory are intact. Speech is normal. Language is fluent with no aphasia. Attention and concentration are normal. Fund of knowledge is appropriate for level of education. Cranial Nerves CN II to XII reported as normal . Motor No fasciculations present. Strength is 5/5 throughout all four extremities. No focal weakness appreciated on examination. Sensory There is no evidence for a stocking-glove gradient in bilateral extremities. Dual simultaneous stimulation is intact. Reflexes Right pathological reflexes: Kailash's absent. Left pathological reflexes: Kailash's absent. Coordination Right: Afaoub-fp-vawv normal. Rapid alternating movement normal.Left: Hhaxiw-wg-oukh normal. Rapid alternating movement normal. Gait Casual gait: Narrow stance. Reduced stride length. Freezing and shuffling gait. Reduced right arm swing. Reduced left arm swing. The patient did not require assistive devices to ambulate. Parkinson's Scales Performed: MDS-UPDRS Motor subscale condition of exam Medication Off/On/Naiive ON Time of UPDRS Time of Last Medication Last Medication Taken DBS Right N/A DBS Left N/A MDS-UPDRS Motor subscale scores Speech 2-Mild. Loss of modulation, diction, or volume, with a few words unclear, but the overall sentences easy to follow. Facial Expression 2-Mild. In addition to decreased eye-blink frequency, Masked facies present in the lower face as well, namely fewer movements around the mouth, such as less spontaneous smiling, but lips not parted. Rigidity Neck 2-Mild. Rigidity detected without the activation maneuver, but full range of motion is easily achieved. Rigidity Right Upper Extremity 2-Mild. Rigidity detected without the activation maneuver, but full range of motion is easily achieved. Rigidity Left Upper Extremity 2-Mild. Rigidity detected without the activation maneuver, but full range of motion is easily achieved. (more content not included)...[id number] History of Present illness Narrative* SolomonEfren, - 05/05/2023 11:14 AM EDT [facility] - FOLLOW UP EVALUATION Amy Zuñiga MD [address] [facility] [address] Magdaleno Valderrama is a 82 year old right-handed male with a history of parkinsonism. He is seen with a son. Interval History Since Last Visit: For 2-months - he has worsening sleep, increased tremor and a few falls. He has leg aching. He willgo to bed at 9P and wake up at midnight and stay awake. He is having more issues with walking - easily fatigued. He was unable to get INBRIJA (levodopa inhalation powder) 2/2 cost. He goes to a PD class in [place] 3x weekly. He has more difficulty getting out of a low chair. He does not use a cane properly. Parkinson's Medications Schedule: Medications 6 AM 10 AM 2 PM 6 PM Sinemet (carbidopa/levodopa) CR 50/200 1 1 1 1 Sinemet (carbidopa/levodopa) 25/100 1.5 1.5 1.5 1.5 Aricept (donepezil) 5mg x x x 1 Clonazepam 0.5 mg x x x 1 Miralax as needed Melatonin 15 mg x x x 1 Previous Parkinson's Medications: None Allergies: ALLERGIES Allergen Reactions Neosporin [Neomycin* Current Medications: Current Outpatient Medications Medication Sig furosemide (LASIX) 40 mg tablet Take 1 tablet by mouth three times a day. carbidopa-levodopa (SINEMET 25-100) 25-100 mg per tablet Take 1.5 tablets of immediate release levodopa/carbidopa 25/100 mg at 6 AM, 10 AM, 2 PM, and 6 PM carbidopa-levodopa CR (SINEMET CR) 50-200 mg per tablet Take 1 tablet of controlled release levodopa/carbidopa 50/200 mg at 6 AM, 10 AM, 2 PM, and 6 PM levodopa (INBRIJA) 42 mg Inhale 2 capsules as instructed five times daily. clonazePAM (KLONOPIN) 0.5 mg tablet Take by mouth. donepezil (ARICEPT) 5 mg tablet TAKE 1 TABLET BY MOUTH EVERY MORNING FOR THE FIRST MONTH ELIQUIS 5 mg tab(s) Take 5 mg by mouth twice daily. vit C/E/Zn/coppr/lutein/zeaxan (PRESERVISION AREDS-2 ORAL) Take by mouth. levothyroxine (SYNTHROID) 100 mcg tablet 1.5 tab on Mondays, one other 6 days. allopurinol (ZYLOPRIM) 300 mg tablet Take 1 tablet by mouth once daily. atorvastatin 20 mg tablet Take 20 mg by mouth once daily. Cholecalciferol, Vitamin D3, 25 mcg (1,000 unit) cap Take 1,000 Units by mouth once daily. cyanocobalamin(VITAMIN B-12 500 MCG TAB) Take one(1) tablet daily. No current facility-administered medications for this visit. Objective: Vital Signs: BP 120/59 Pulse 82 Temp 36.2 C (97.1 F) Wt 62.6 kg (138 lb) SpO2 97% BMI 20.98 kg/m General Medical Examination: General Description of Patient: Well appearing, comfortable and Thin Head:normocephalic, atraumatic Neck:No bruits, full range of movement, supple Cardiac: Regular rate and rhythm, no murmur Extremities: Muscle atrophy of thighs is noted and No leg edema, pulses intact, no rash or venous stasis changes. Neurological Exam Mental Status Awake and alert. Recent and remote memory are intact. Speech is normal. Language is fluent with no aphasia. Attention and concentration are normal. Fund of knowledge is appropriate for level of education. Cranial Nerves CN II to XII reported as normal . Motor No fasciculations present. Strength is 5/5 throughout all four extremities. No focal weakness appreciated on examination. Sensory There is no evidence for a stocking-glove gradient in bilateral extremities. Dual simultaneous stimulation is intact. Reflexes Right pathological reflexes: Kailash's absent. Left pathological reflexes: Kailash's absent. Coordination Right: Rgbbfc-sv-eoqz normal. Rapid alternating movement normal.Left: Yfrljm-oy-vrpt normal. Rapid alternating movement normal. Gait Casual gait: Narrow stance. Reduced stride length. Freezing and shuffling gait. Reduced right arm swing. Reduced left arm swing. The patient did not require assistive devices to ambulate. Parkinson's Scales Performed: MDS-UPDRS Motor subscale condition of exam Medication Off/On/Naiive ON Time of UPDRS Time of Last Medication Last Medication Taken DBS Right N/A DBS Left N/A MDS-UPDRS Motor subscale scores Speech 2-Mild. Loss of modulation, diction, or volume, with a few words unclear, but the overall sentences easy to follow. Facial Expression 2-Mild. In addition to decreased eye-blink frequency, Masked facies present in the lower face as well, namely fewer movements around the mouth, such as less spontaneous smiling, butlips not parted. Rigidity Neck 2-Mild. Rigidity detected without the activation maneuver, but full range of motion is easily achieved. Rigidity Right Upper Extremity 2-Mild. Rigidity detected without the activation maneuver, but full range of motion is easily achieved. Rigidity Left Upper Extremity 2-Mild. Rigidity detected without the activation maneuver, but full range of motion is easily achieved. Rigidity Right Lower Extremity 2-Mild. Rigidity detected without the activation maneuver, but full range of motion is easily achieved. Rigidity Left Lower Extremity 2-Mild. Rigidity detected without the activation maneuver, but full range of motion is easily achieved. Finger Taps Right 2-Mild. a) 3 to 5 interruptions during tapping, b) mild slowing, c) the amplitudedecrements midway in the 10-tap sequence. Finger Taps Left 2-Mild. a) 3 to 5 interruptions during tapping, b) mild slowing, c) the amplitude decrements midway in the 10-tap sequence. Hand Movements Right 2-Mild. a) 3 to 5 interruptions during the movements, b) mild slowing, c) the amplitude decrements midway in the task. Hand Movements Left 2-Mild. a) 3 to 5 interruptions during the movements, b) mild slowing, c) the amplitude decrements midway in the task. Arm Movements Right 2-Mild. a) 3 to 5 interruptions during the movements, b) mild slowing, c) the amplitude decrements midway in the sequence. Arm Movements Left 2-Mild. a) 3 to 5 interruptions during the movements, b) mild slowing, c) the amplitude decrements midway in the sequence. Toe Taps Right 2-Mild. a) 3 to 5 interruptions during the tapping movements, b) mild slowing, c) the amplitude decrements midway in the task. Toe Taps Left 3-Moderate. a) more than 5 interruptions during the tapping movements or at least onelonger arrest (freeze) in ongoing movement, b) moderate slowing, c) the amplitude decrements starting after the first tap. Leg Agility Right 3-Moderate. a) more than 5 interruptions during the movement or at least one longer arrest (freeze) in ongoing movement, b) moderate slowing in speed, c) amplitude decrements after the first tap. Leg Agility Left 3-Moderate. a) more than 5 interruptions during the movement or at least one longer arrest (freeze) in ongoing movement, b) moderate slowing in speed, c) amplitude decrements after the first tap. Arise From Chair 1-Slight. Arising is slower than normal, or may need more than one attempt, or mayneed to move forward in the chair to arise. No need to use the arms of the chair. Gait 1-Slight. Independent walking with minor gait impairment. Gait Freezing 4-Severe. Freezes multiple times during straight walking. Posture Stability 3-Moderate. Stands safely, but with absence of postural response, falls if not caught by examiner. Posture 2-Mild. Definite flexion, scoliosis or leaning to one side, but patient can correct postureto normal posture when asked to do so. Body Bradykinesia 1-Slight. Slight global slowness and poverty of spontaneous movements. Postural Tremor Hand Right 1-Slight. Tremor is present but less than 1cm in amplitude. Postural Tremor Hand Left 1-Slight. Tremor is present but less than 1cm in amplitude. Kinetic Tremor Right 0-Normal. No tremor. Kinetic Tremor Left 0-Normal. No tremor. Rest Tremor Amplitude Right Upper Extremity 0-Normal. No tremor. Rest Tremor Amplitude Left Upper Extremity 0-Normal. No tremor. Rest Tremor Amplitude Right Lower Extremity 0-Normal. No tremor. Rest Tremor Amplitude Left Lower Extremity 0-Normal. No tremor. Rest Tremor Amplitude Lip/Jaw 0-Normal. No tremor. Rest Tremor Constancy 0-Normal. No tremor. MDS-UPDRS Motor subscale totals Left Total 17 Right Total 16 Midline Total 18 Tremor Total / 10 2 PIGD Total / 3 8 Overall Total 51 % Change Compared to Last Filed Total Based on today's exam the patient is Eddi and Yahr stage 4 (Severe disability; still able to walk or stand unassisted). Assessment and Plan: Mr. Valderrama is a right-handed 82 year old male with worsening parkinsonism in the setting of increasing muscle atrophy and fatigue. The patient's sleep is worsening because he is not following sleep hygiene. The patient is reporting increasing generalized pain in the legs. He was unable to limit the pain to the muscles or joints. The following are the current problems noted and addressed during this visit: Primary parkinsonism (primary encounter diagnosis) Fatigue, unspecified type Plan: Continue current antiparkinsonian regimen as dosed. U-STEP Walking Stabilizer Walker Lab work for muscle pain Return in about 6 months (around 11/04/2023). Medical decision making was high complexity due to patient's, multiple symptoms, advancing disease The total time spent on the patient care was 34 minutes with greater than 50% of the time spent on counseling regarding preparing to see the patient, [id number] patient care, completing clinical documentation, obtaining and/or reviewing separately obtained history, performing a medically appropriate examination, counseling and educating the patient/family/caregiver, ordering medications, tests,or procedures, and communicating results to the patient/family/caregiver. I tried to answer all of the patient's questions and concerns during this visit. Efren Carbajal DO Senior Staff Neurologist - [facility] documented in this encounterSheltering [facility] Hospital07-24-2023 Evaluation + Plan note Future Scheduled Tests Laboratory* TSH With T4fr Reflex 02/20/23 [facility]07-03-2023 Miscellaneous Notes* Telephone Encounter - Kacie Ferguson - 01/30/2023 9:00 AM EDT Request from patient requesting refill. Please E-Scribe to [facility] PATIENT OUT. Last OV: 11/29/22 with [facility] Future OV: none Requested Prescriptions Pending Prescriptions Disp Refills carbidopa-levodopa (SINEMET 25-100) 25-100 mg per tablet 540 tablet 3 Sig: Take 1.5 tablets of immediate release levodopa/carbidopa 25/100 mg at 6 AM, 10 AM, 2 PM, and 6PM carbidopa-levodopa CR (SINEMET CR) 50-200 mg per tablet 540 tablet 3 Sig: Take 1 tablet of controlled release levodopa/carbidopa 50/200 mg at 6 AM, 10 AM, 2 PM, and 6 PM Kacie Pedroza documented in this encounterSheltering [facility] Hospital05-16-[address] [facility] Instructions* Patient Instructions* Efren Carbajal DO - 11/30/2022 9:24 PM EDT Medications 6 AM 10 AM 2 PM 6 PM Sinemet (carbidopa/levodopa) CR 50/200 1 1 1 1 Sinemet (carbidopa/levodopa) 25/100 1.5 1.5 1.5 1.5 Aricept (donepezil) 5mg x x x 1 Clonazepam 0.5 mg x x x 1 Miralax as needed Melatonin 15 mg x x x 1 INBRIJA (levodopa inhalation powder) 2 capsules up to 5x daily documented in this encounterSheltering Arms Hospital05-03-2023 NoteHNO ID: [id number] Author: Rhoda Romero Service: ? Author Type: ? Type: Progress Notes Filed: 11/30/2022 1:02 PM Note Text: [facility](s[facility] for Inbrija from Dr. Villavicencio's office. Benefits investigation was conducted, indicating that a prior authorization is required. BERE was approved with details listed below: Plan Name: [employer] Medicare PA reference number: [id number] Approval Dates: 06/29/22 - 07/30/23 First copay is high (>$1958) due to the different phases of patient's traditional Medicare part D plan. It is estimated that the patient's copays will be somewhat similar until (s)he gets through the medicare coverage gap (can take up to ~$3700) after which future fills are expected to be ~$307 monthly thereafter. There is no funding available for patients diagnosis at this time. Patient will be referred to Inbrija Support Assistance Program. Note will be update once pt is contacted. Rhoda Heather [facility] P: [phone] F: [phone] State [facility] System05-03-2023 NoteHNO ID: [id number] Author: Rhoda Maldonadocindy Service: ? Author Type: ? Type: Progress Notes Filed: 12/01/2022 2:05 PM Note Text: Spoke to Cristian Valderrama (son) regarding affordability for Inbrija, as patient's copay is high. There are no current grants for their diagnosis. [facility] will now refer patient to the house father Patient Assistance Program. Discussed eligibility for the [employer] ([employer]) Patient Assistance Program, and pt meets the current income guidelines based off the information given: HH size: 1 Estimated Annual Income: $23,436 / year The following documents are required for submission: Application, Prescription Drug Card, and Proof of Income I explained the next steps to proceed with patient assistance. Application will be sent to pt via e-mail per their request to be signed and completed. Emphasized importance of returning all required documents in a timely matter, and the estimated turnaround for review of the application (7-10 business days) once submitted. S/he expressed understanding of the information we provided today, and received our contact information for the pharmacy if s/he had any other questions. Dr. Carbajal - we will be emailing an application to your office which requires your signature. Please sign where indicated and return via e-mail to . Rhoda Romero [facility] P: [phone] F: [phone] State Health System05-02-2023 NoteHNO ID: [id number] Author: Efren Carbajal, DO Service: ? Author Type: Physician Type: Progress Notes Filed: 11/30/2022 9:24 PM Note Text: VIRTUAL VISIT PROGRESS NOTE This is a virtual visit using [employer] video visit. It required patient-provider interaction for the medical decision making as documented below. I have communicated my name and active licensure. The patient's identity and physical location were verified at the time of this visit. Either the patient or their legal new accounts representative has been informed of the risks and benefits of -- and alternatives to -- treatment through a remote evaluation and consents to proceed with the evaluation remotely. Magdaleno Valderrama is a 82 year old male seen for senescent parkinsonism. HISTORY REVIEWED (electronic chart updated): He has a cardiac procedure recently. He has more hand tremor. The tremor is worse now. He has more issues with walking. Edema is worsening - he has lost 19# of water weight. There is no set time when the symptoms are the same. He is more SOB. He has CHF - no cardiac notes are available. He is shuffling more - wants more medications Medications 6 AM 10 AM 2 PM 6 PM Sinemet (carbidopa/levodopa) CR 50/200 1 1 1 1 Sinemet (carbidopa/levodopa) 25/100 1.5 1.5 1.5 1.5 Aricept (donepezil) 5mg x x x 1 Clonazepam 0.5 mg x x x 1 Miralax as needed Melatonin 15 mg x x x 1 PAST MEDICAL HISTORY Diagnosis Date Hypothyroid surgical: 4-5 cm nodule. Malignant neoplasm of colon, unspecified site 1996 Colon cancer (blood in stool test card) Unspecified sleep apnea 1995 Sleep apnea PAST SURGICAL HISTORY Procedure Laterality Date COLECTOMY PARTIAL W/ANASTOMOSIS 1996 r Hemicolectomy PAST SURGICAL HISTORY OF skin removal, skin peel on head. RPR 1ST INGUN HRNA AGE 5 YRS/> REDUCIBLE Hernia repair, inguinal THYROIDECTOMY TOTAL/COMPLETE 2009 FAMILY HISTORY Problem Relation Age of Onset Diabetes Mother age 87 Thyroid Paternal Grandmother goiter Cancer Father metastatic prostate Ca. agfe 83 None Son None Son None Son Heart Father Social History Tobacco Use Smoking status: Former Packs/day: 1.00 Years: 20.00 Pack years: 20.00 Types: Cigarettes Smokeless tobacco: Never Tobacco comments: quit many yrs ago Substance Use Topics Alcohol use: No Drug use: No Current Outpatient Medications Medication Sig levodopa (INBRIJA) 42 mg Inhale 2 capsules as instructed five times daily. clonazePAM (KLONOPIN) 0.5 mg tablet Take by mouth. donepezil (ARICEPT) 5 mg tablet TAKE 1 TABLET BY MOUTH EVERY MORNING FOR THE FIRST MONTH ELIQUIS 5 mg tab(s) Take 5 mg by mouth twice daily. vit C/E/Zn/coppr/lutein/zeaxan (PRESERVISION AREDS-2 ORAL) Take by mouth. carbidopa-levodopa (SINEMET 25-100) 25-100 mg per tablet Take 1.5 tablets by mouth four times daily. Take 1.5 tablets of immediate release levodopa/carbidopa 25/100 mg at 6 AM, 10 AM, 2 PM, and 6 PM carbidopa-levodopa CR (SINEMET CR) 50-200 mg per tablet Take 1 tablet by mouth four times daily. Take 1 tablet of controlled release levodopa/carbidopa 50/200 mg at 6 AM, 10 AM, 2 PM, and 6 PM levothyroxine (SYNTHROID) 100 mcg tablet 1.5 tab on Mondays, one other 6 days. allopurinol (ZYLOPRIM) 300 mg tablet Take 1 tablet by mouth once daily. atorvastatin 20 mg tablet Take 20 mg by mouth once daily. Cholecalciferol, Vitamin D3, 25 mcg (1,000 unit) cap Take 1,000 Units by mouth once daily. cyanocobalamin(VITAMIN B-12 500 MCG TAB) Take one(1) tablet daily. No current facility-administered medications for this visit. ALLERGIES Allergen Reactions Neosporin [Neomycin* REVIEW OF SYSTEMS: NEURO: no numbness or paresthesias and no weakness of the extremities PHYSICAL EXAMINATION: VIDEO EXAM: (if completed, performed via video enabled technology) No exam performed ASSESSMENT: (G20, T42.8X5A) Motor fluctuations related to medication use in Parkinson's disease (HCC) (primary encounter diagnosis) (G20) Primary parkinsonism (HCC) PLAN: Add INBRIJA (levodopa inhalation powder) Continue current antiparkinsonian regimen as dosed. Patient Instructions Medications 6 AM 10 AM 2 PM 6 PM Sinemet (carbidopa/levodopa) CR 50/200 1 1 1 1 Sinemet (carbidopa/levodopa) 25/100 1.5 1.5 1.5 1.5 Aricept (donepezil) 5mg x x x 1 Clonazepam 0.5 mg x x x 1 Miralax as needed Melatonin 15 mg x x x 1 INBRIJA (levodopa inhalation powder) 2 capsules up to 5x daily I spent a total of 23 minutes on the date of the service which included preparing to see the patient, [id number] patient care, completing clinical documentation, obtaining and/or reviewing separately obtained history, counseling and educating the patient/family/caregiver, ordering medications, tests, or procedures, communicating results to the patient/family/caregiver, and care coordination (not separately reported) LUCY MeyerOhio [facility]05-02-2023 History of Present illness Narrative* Efren Carbajal DO - 11/29/2022 3:04 PM EDT VIRTUAL VISIT PROGRESS NOTE This is a virtual visit using [employer] video visit. It required patient-provider interaction for themedical decision making as documented below. I have communicated my name and active licensure. The patient's identity and physical location wereverified at the time of this visit. Either the patient or their legal new accounts representative has been informed of the risks and benefits of -- and alternatives to -- treatment through a remote evaluation andconsents to proceed with the evaluation remotely. Magdaleno Valderrama is a 82 year old male seen for senescent parkinsonism. HISTORY REVIEWED (electronic chart updated): He has a cardiac procedure recently. He has more hand tremor. The tremor is worse now. He has more issues with walking. Edema is worsening - he has lost 19# of water weight. There is no set time whenthe symptoms are the same. He is more SOB. He has CHF - no cardiac notes are available. He is shuffling more - wants more medications Medications 6 AM 10 AM 2 PM 6 PM Sinemet (carbidopa/levodopa) CR 50/200 1 1 1 1 Sinemet (carbidopa/levodopa) 25/100 1.5 1.5 1.5 1.5 Aricept (donepezil) 5mg x x x 1 Clonazepam 0.5 mg x x x 1 Miralax as needed Melatonin 15 mg x x x 1 PAST MEDICAL HISTORY Diagnosis Date Hypothyroid surgical: 4-5 cm nodule. Malignant neoplasm of colon, unspecified site 1996 Colon cancer (blood in stool test card) Unspecified sleep apnea 1995 Sleep apnea PAST SURGICAL HISTORY Procedure Laterality Date COLECTOMY PARTIAL W/ANASTOMOSIS 1996 r Hemicolectomy PAST SURGICAL HISTORY OF skin removal, skin peel on head. RPR 1ST INGUN HRNA AGE 5 YRS/> REDUCIBLE Hernia repair, inguinal THYROIDECTOMY TOTAL/COMPLETE 2009 FAMILY HISTORY Problem Relation Age of Onset Diabetes Mother age 87 Thyroid Paternal Grandmother goiter Cancer Father metastatic prostate Ca. agfe 83 None Son None Son None Son Heart Father Social History Tobacco Use Smoking status: Former Packs/day: 1.00 Years: 20.00 Pack years: 20.00 Types: Cigarettes Smokeless tobacco: Never Tobacco comments: quit many yrs ago Substance Use Topics Alcohol use: No Drug use: No Current Outpatient Medications Medication Sig levodopa (INBRIJA) 42 mg Inhale 2 capsules as instructed five times daily. clonazePAM (KLONOPIN) 0.5 mg tablet Take by mouth. donepezil (ARICEPT) 5 mg tablet TAKE 1 TABLET BY MOUTH EVERY MORNING FOR THE FIRST MONTH ELIQUIS 5 mg tab(s) Take 5 mg by mouth twice daily. vit C/E/Zn/coppr/lutein/zeaxan (PRESERVISION AREDS-2 ORAL) Take by mouth. carbidopa-levodopa (SINEMET 25-100) 25-100 mg per tablet Take 1.5 tablets by mouth four times daily. Take 1.5 tablets of immediate release levodopa/carbidopa 25/100 mg at 6 AM, 10 AM, 2 PM, and 6 PM carbidopa-levodopa CR (SINEMET CR) 50-200 mg per tablet Take 1 tablet by mouth four times daily. Take 1 tablet of controlled release levodopa/carbidopa 50/200 mg at 6 AM, 10 AM, 2 PM, and 6 PM levothyroxine (SYNTHROID) 100 mcg tablet 1.5 tab on Mondays, one other 6 days. allopurinol (ZYLOPRIM) 300 mg tablet Take 1 tablet by mouth once daily. atorvastatin 20 mg tablet Take 20 mg by mouth once daily. Cholecalciferol, Vitamin D3, 25 mcg (1,000 unit) cap Take 1,000 Units by mouth once daily. cyanocobalamin(VITAMIN B-12 500 MCG TAB) Take one(1) tablet daily. No current facility-administered medications for this visit. ALLERGIES Allergen Reactions Neosporin [Neomycin* REVIEW OF SYSTEMS: NEURO: no numbness or paresthesias and no weakness of the extremities PHYSICAL EXAMINATION: VIDEO EXAM: (if completed, performed via video enabled technology) No exam performed ASSESSMENT: (G20, T42.8X5A) Motor fluctuations related to medication use in Parkinson's disease (HCC) (primary encounter diagnosis) (G20) Primary parkinsonism (HCC) PLAN: Add INBRIJA (levodopa inhalation powder) Continue current antiparkinsonian regimen as dosed. Patient Instructions Medications 6 AM 10 AM 2 PM 6 PM Sinemet (carbidopa/levodopa) CR 50/200 1 1 1 1 Sinemet (carbidopa/levodopa) 25/100 1.5 1.5 1.5 1.5 Aricept (donepezil) 5mg x x x 1 Clonazepam 0.5 mg x x x 1 Miralax as needed Melatonin 15 mg x x x 1 INBRIJA (levodopa inhalation powder) 2 capsules up to 5x daily I spent a total of 23 minutes on the date of the service which included preparing to see the patient, [id number] patient care, completing clinical documentation, obtaining and/or reviewing separately obtained history, counseling and educating the patient/family/caregiver, ordering medications, hitesh ts, or procedures, communicating results to the patient/family/caregiver, and care coordination (not separately reported) Efren Carbajal DO [facility] NoteHNO ID: [id number] Author: Efren Carbajal DO Service: ? Author Type: Physician Type: Progress Notes Filed: 11/22/2022 4:37 PM Note Text: Left message on identified VM to call back This patient did not show up for this appointment. Efren Carbajal DO Senior Staff Neurologist - [facility]04-25-2023 History of Present illness Narrative* Efren Carbajal DO - 11/22/2022 4:35 PM EDT Left message on identified VM to call back This patient did not show up for this appointment. Efren Carbajal DO Senior Staff Neurologist [facility] History of Present illness Narrative* Patient is here for follow-up from recent hospitalization. He recently presented with complete heart block and bradycardia. He underwent dual-chamber placement. Since his discharge the patient appears to remain in atrial fibrillation. He reports over the last few weeks he developed significant lower extremity edema and scrotal edema. He was in [facility]. Record is not available to me. Apparently patient was started on Lasix and Aldactone. He had significant improvement but continues to have significant volume overload and edema. The patient denies lightheadedness, dizziness or syncope. * Assessment * 1. Atrial fibrillation. He remained in A-fib since his pacemaker was implanted few months back. He is compliant with his anticoagulation * 2. Recent presentation with symptomatic complete heart block and severe bradycardia status post dual-chamber pacemaker implantation * 3. 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 Hypothyroidism on replacement therapy * 5. Abnormal echocardiogram moderate to severe left atrial dilatation and mild to moderate mitral regurgitation but preserved LV systolic function there is evidence of pulmonary hypertension * 6. Hyperlipidemia on atorvastatin * 7. Recent presentation with volume overload and heart failure I suspect the right-sided * 8. Parkinson disease * Plan * 1. I recommended patient to i continue present medical therapy, risk, benefits alternative anticoagulation reviewed with patient he understood and agreed with the patient was advised to continue the recently prescribed Lasix and Aldactone * 2. I advised him to monitor for his weight and volume status. I advised him if he loses more than 5-10 pounds to reduce the dose of both Lasix and Aldactone to every other day * 3. Patient was advised to restrict his salt intake * 0.4. We will try to retrieve his recent ER visit from [place] * 4. I recommended to proceed with cardioversion and hope that with a improve his heart failure symptomatology. We will do a full basic metabolic profile prior to cardioversion * 5. I will see him back in the office in 3 to 4 months after cardioversion -[facility] [address] DO Work Phone: 1([phone]) 199-647503-23-2023 NoteHNO ID: [id number] Author: Efren Carbajal, DO Service: ? Author Type: Physician Type: Progress Notes Filed: 10/20/2022 4:19 PM Note Text: [facility] - FOLLOW UP EVALUATION Efren Carbajal [address] [place] [facility] [address] Amy Zuñiga MD [address] [facility] [address] Magdaleno Valderrama is a 82 year old right-handed male with a history of senescent parkinsonism. He is seen with a son. Interval History Since Last Visit: The patient has had some medical issues recently - he fell due to bradycardia - found to have a-fib and needed a pacemaker. The patient needed 7-9 stitches. The patient denies any hospitalization since the last office visit. The patient denies any changes to their medical history or new diagnoses. The patient denies any surgery/procedure since their last visit. The patient denies any headache, chest pain, palpitations, shortness of breath or abdominal pain. The patient denies any seizures, numbness/tingling, lightheadedness or vertiginous symptoms. The patient denies any recent suicidal ideation or attempts to harm themselves or others. The patient denies any new pain. He has more trouble with turning. The peak-dose dyskinesias (levodopa-induced dyskinesias - LID) are much better recently. LID threw his balance off and he fell numerous times. Parkinson's Medications Schedule: Medications 6 AM 10 AM 2 PM 6 PM Carbidopa/levodopa CR 50/200 mg 1 1 1 1 Carbidopa/levodopa 25/100 1.5 1.5 1.5 1.5 Donepezil 5 mg 1 Clonazepam 0.5 mg 1 Miralax as needed Melatonin 15 mg 1 Previous Parkinson's Medications: None Allergies: ALLERGIES Allergen Reactions Neosporin [Neomycin* Current Medications: Current Outpatient Medications Medication Sig clonazePAM (KLONOPIN) 0.5 mg tablet Take by mouth. donepezil (ARICEPT) 5 mg tablet TAKE 1 TABLET BY MOUTH EVERY MORNING FOR THE FIRST MONTH ELIQUIS 5 mg tab(s) Take 5 mg by mouth twice daily. vit C/E/Zn/coppr/lutein/zeaxan (PRESERVISION AREDS-2 ORAL) Take by mouth. carbidopa-levodopa (SINEMET 25-100) 25-100 mg per tablet Take 1.5 tablets by mouth four times daily. Take 1.5 tablets of immediate release levodopa/carbidopa 25/100 mg at 6 AM, 10 AM, 2 PM, and 6 PM carbidopa-levodopa CR (SINEMET CR) 50-200 mg per tablet Take 1 tablet by mouth four times daily. Take 1 tablet of controlled release levodopa/carbidopa 50/200 mg at 6 AM, 10 AM, 2 PM, and 6 PM levothyroxine (SYNTHROID) 100 mcg tablet 1.5 tab on Mondays, one other 6 days. allopurinol (ZYLOPRIM) 300 mg tablet Take 1 tablet by mouth once daily. atorvastatin 20 mg tablet Take 20 mg by mouth once daily. Cholecalciferol, Vitamin D3, 25 mcg (1,000 unit) cap Take 1,000 Units by mouth once daily. cyanocobalamin(VITAMIN B-12 500 MCG TAB) Take one(1) tablet daily. No current facility-administered medications for this visit. Objective: Vital Signs: BP 155/91 (BP Site: Left Arm, BP Position: Sitting, BP Cuff Size: Regular Adult) Pulse 82 General Medical Examination: General Description of Patient: Well appearing, comfortable and Thin Head:normocephalic, atraumatic and multiple scabs on top of scalp Neck:No bruits, full range of movement, supple Cardiac: Regular Rate and Rhythm Extremities: No leg edema, pulses intact, no rash or venous stasis changes. Neurological Exam Mental Status Awake and alert. Recent and remote memory are intact. Speech is normal. Language is fluent with no aphasia. Attention and concentration are normal. Fund of knowledge is appropriate for level of education. Cranial Nerves CN II to XII reported as normal . Motor No fasciculations present. Strength is 5/5 throughout all four extremities. No focal weakness appreciated on examination. Sensory There is no gross stocking-glove gradient in bilateral extremities with vibration. Dual simultaneous stimulation is intact. Reflexes Right Left Brachioradialis 2+ 2+ Biceps 2+ 2+ Triceps 2+ 2+ Hamstring 1+ 1+ Patellar 1+ 1+ Right pathological reflexes: Kailash's absent. Left pathological reflexes: Kailash's absent. Coordination Right: [id number]-nz-qvld normal. Rapid alternating movement normal.Left: Zfqzub-le-rnsb normal. Rapid alternating movement normal. Gait Casual gait: Narrow stance. Reduced stride length. Freezing, hesitant and shuffling gait. The patient did require assistive devices [cane] to ambulate. Movement Disorders There is no rest tremor. The patient has no action tremor. The patient has no postural tremor. The patient does not have a vocal or lingual tremor. An orthostatic tremor is not noted bilaterally. There is minimal rigidity on examination. There is marked bilateral bradykinesia on examination. There is no reptilian stare. Hypophonia was mild Based on today's exam the patient is Eddi and Yahr stage 3 (Mild to moderate bilateral disease; some postural instability; physically independe (more content not included)...[facility]03-08-2023 Evaluation note* Encounter Date Diagnosis Assessment Notes Treatment Notes Treatment Clinical Notes Sep, Afib (ICD-10 - I48.91) Discussed etiology, risk factors, symptoms, treatment, medications and importance of follow-up in order to reduce risk of complications related to atrial fibrillation. Discussed the increased risk of clotting leading to stroke or heart attack and the importance of identifying signs and symptoms to notify healthcare provider/ specialist and also signs and symptoms to seek immediate medical attention for. Patient verbalizes understanding. Sep, Transition of care performed with sharing of clinical summary (ICD-10 - Z91.89) ER report, labs, diagnostics, vitals, H&P, medication reconciliation and discharge summary reviewed. KRISTIN resource and informational packet given. Patient appears to be physically and mentally stable at this time. Extensive education done regarding pacemaker the reason for needing a pacemaker and electrical activity of the heart including discussed etiology, risk factors, symptoms, treatment, medications and importance of follow-up in order to reduce risk of complications related to atrial fibrillation. Discussed the increased risk of clotting leading to stroke or heart attack and the importance of identifying signs and symptoms to notify healthcare provider/ specialist and also signs and symptoms to seek immediate medical attention for. Patient verbalizes understanding. And heart block.. Advised on signs and symptoms to call provider or return to ED. I have ensured patient safety today and verified that patient does have a good support system. Patient is also able to afford all medications, including any new meds prescribed on discharge, as well as medical supplies and food and does not require additional social support. Patient is aware of all follow-up visits as scheduled and importance of keeping appointments as well as keeping established with a PCP. Pharmacist unavailable to meet with patient in office today however a thorough review of discharge medications was reviewed with patient. They have no particular questions regarding medication use, side effects or timing. Per discharge instructions and summary it appears that aspirin 81 mg was discontinued upon discharge which patient was not aware of. Eliquis was to be continued twice daily. Paperwork reflecting this was handed to patient for his son to help with med set up. 35 minutes was spent with the patient/ review of documentation pertaining to the visit today. MARICRUZ Oconnell This note was completed with the assistance of voice recognition technology. Please excuse any grammatical errors that were not corrected during review. Sep, Pacemaker (ICD-10 - Z95.0) Pacemaker insertion home care material was printed Patient provided teach back that he received in the hospital including how he understands how the pacemaker works. He reiterated that he knows not to move his arm in extreme positions until the wires are well established. He understands that he will need to have intermittent pacemaker checks in addition to his top carrier visits which are currently scheduled. [email or web address] Other 02-28-2023 Progress note Author Edel Cesar [facility] September 27, 2022 9:48am Note Date/Time September 27, 2022 9:46am [facility] [address] [place] [address] Cardiology Progress Note Signed Patient: Magdaleno Valderrama MR#: [id number] : 1940 Acct:[id number] Age/Sex: 82 / M Adm Date: 3 Loc: Room: [address] [place] [address] Type: ADM IN Attending Dr: Jordan Gallegos DO Copies to: ~ Date of Service: 09/27/2022 Subjective Interval history: No cardiac issues. Mild bruising around the pacemaker site. Nursing staff report patient intermittently confused. Hemodynamically stable Exam Physical Exam Vital Signs: Temp Pulse Resp BP Pulse Ox O2 Del Method 98.2 F 69 20 146/95 H 98 Room Air 09/27/22 03:00 09/27/22 08:11 09/27/22 08:11 09/27/22 08:11 09/27/22 08:11 09/27/22 08:11 Const General: cooperative Neck Neck: supple Lymphatic: no lymphadenopathy noted Resp Effort & Inspection: normal respiratory effort Auscultation: clear to auscultation bilaterally Cardio Palpation: normal PMI Rate: regular rate Rhythm: regular rhythm Heart Sounds: S1 normal and S2 normal Skin General: dry skin Extrem General: full ROM and no clubbing, cyanosis or edema Objective Labs 09/27/22 04:25 09/27/22 04:25 Labs: Laboratory Results - last 24 hr 09/26/22 09/27/22 09/27/22 13:12 04:25 04:25 Corrected WBC 7.8 Uncorrected WBC Count 7.8 RBC 3.92 Hgb 11.7 L Hct 35.5 L MCV 90.5 MCH 29.7 MCHC 32.8 RDW 18.0 H Plt Count 122 L MPV 8.3 Neut % (Auto) 76.3 Lymph % (Auto) 11.6 [place] % (Auto) 10.3 Eos % (Auto) 1.5 Baso % (Auto) 0.3 Nucleat RBC Rel Count 0.0 Neut # (Auto) 6.0 Lymph # (Auto) 0.9 L [place] # (Auto) 0.8 Eos # (Auto) 0.1 Baso # (Auto) 0.0 PT 15.6 H INR 1.4 APTT 34.0 PHA Creatinine Clear 59.78 Sodium 134 L Potassium 3.9 Chloride 101 Carbon Dioxide 27.0 Anion Gap 9.9 BUN 18 Creatinine 0.89 Est GFR ( Amer) > 60 Est GFR (Non-Af Amer) > 60 Glucose 89 Calcium 8.3 Magnesium 1.8 A&P - Cardiology (1) Syncope: Code(s): R55 - Syncope and collapse Status: Acute Plan Assessment 1. 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 Patient is status postpermanent pacemaker implantation 2. Persistent atrial fibrillation. In the past the patient had history of paroxysmal atrial fibrillation noted mainly on a Holter monitor and had been on anticoagulation due to prior history of what appears to be cerebrovascular events. It is unclear how long he has been in atrial fibrillation 3. Probable dementia 4. Confusion and sundowning 5. Long-term anticoagulant due to history of paroxysmal atrial fibrillation in the past and concern about cerebrovascular event based on MRI result 6. History of Parkinson disease Plan 1. Device check demonstrated appropriate function. Chest x-ray noted and reviewed 2. Cardiac carlos the patient can be discharged home. 3. Resume anticoagulation in 48 hours 4. Follow-up in 8 to 12 weeks and consider cardioversion down the road Documented By: Edel Cesar MD 09/27/22 0943 Signed By: <Electronically signed by MD Edel Cesar> 09/27/22 0948 [facility] Work Phone: [phone]) [phone] Progress note Author Jordan Gallegos [facility] September 26, 2022 7:27pm Note Date/Time September 26, 2022 7:28pm [facility] [address] [place], [place] [id number] Hospitalist Progress Note Signed Patient: Magdaleno Valderrama MR#: [id number] : 1940 Acct:[id number] Age/Sex: 82 / M Adm Date: 3 Loc: Room: [address] [place] [address] Type: ADM IN Attending Dr: Jordan Gallegos DO Copies to: ~ Date of Service: 09/26/2022 Subjective Subjective Narrative: Patient was seen and examined at the bedside this morning. Patient did undergo pacemaker placement this afternoon. Physical Examination: GENERAL APPEARANCE: Alert, up in bed AAOx3, resting head-bobbing HEENT: NCAT, MMM NECK: Neck soft w/o masses, no JVD, no murmurs CARDIAC: Normal S1 and S2. No S3, S4 or murmurs. LUNGS: Clear to auscultation bilaterally. no wheeze/rhonchi/rales ABDOMEN: Positive bowel sounds. Soft, nontender. No guarding or signs of an acute abdomen EXTREMITIES: No clubbing, cyanosis or edema NEUROLOGICAL: No focal deficits SKIN: Multiple ecchymotic lesions, significant bruising PSYCHIATRIC: Appropriate mood and affect Assessment and plan: 1. Syncope Presumably related to bradycardia. Must also rule out carotid disease. Continue telemetry monitoring. 2. Parkinson's disease We will continue the patient's home medications including carbidopa levodopa 4 times daily, entacapone 200 mg 4 times daily and rasagiline 1 mg daily. If any further concerning neurologic findings develops will consider neurology consultation. 3. Hypothyroidism Continue home levothyroxine 100 mcg daily. Exam Physical Exam Vital Signs: Temp Pulse Resp BP Pulse Ox O2 Del Method 96.9 F L 69 17 148/78 H 96 Room Air 09/26/22 13:59 09/26/22 18:57 09/26/22 18:57 09/26/22 18:57 09/26/22 18:57 09/26/22 18:57 Objective Lab Results 09/26/22 04:26 09/26/22 04:26 Meds Allergies and Active Meds Allergies bacitracin Allergy (Verified 09/25/22 12:07) Unknown Reaction haloperidol [From Haldol] Allergy (Verified 09/25/22 12:07) Unknown Reaction neomycin [From Neosporin ([id number])] Allergy (Verified 09/25/22 12:07) Blister polymyxin B [From Neosporin ([id number])] Allergy (Verified 09/25/22 12:07) Blister Active Meds: Active Medications Generic Name Dose Route Start Last Admin Trade Name Freq PRN Reason Stop Dose Admin Acetaminophen 1,000 mg 09/26/22 17:08 Acetaminophen 500 Mg Tablet PO 09/26/23 17:07 Q6H PRN Mild Pain Al Hydrox/Mg Hydrox/Simethicone 30 ml 09/26/22 17:08 Mag Hydrox/Al Hydrox/Simeth 30 Ml Udc PO 09/26/23 17:07 Q4H PRN Epigastric distress (Non-Card) Atorvastatin Calcium 20 mg 09/25/22 21:00 09/25/22 20:51 Atorvastatin 20 Mg Tablet PO 09/25/23 20:59 20 mg HS ROB Administration Carbidopa/Levodopa 1 tab 09/25/22 14:00 09/26/22 17:33 Carbidopa/Levodopa Cr 50-200mg 1 Tab Tablet.Er PO 09/25/23 13:59 1 tab QID@0600,1000,1400,1800 ROB Administration Carbidopa/Levodopa 1.5 tab 09/25/22 14:00 09/26/22 17:33 Carbidopa/Levodopa 25-100 Mg 1 Tab Tablet PO 09/25/23 13:59 1.5 tab DAILY@0600,1000,1400,1800 ROB Administration Clonazepam 0.5 mg 09/25/22 21:00 09/25/22 20:51 Clonazepam 0.5 Mg Tablet PO 03/24/23 20:59 0.5 mg HS ROB Administration Cyanocobalamin 3,000 mcg 09/26/22 09:00 09/26/22 17:33 Cyanocobalamin 1,000 Mcg Tablet PO 09/26/23 08:59 3,000 mcg DAILY ROB Administration Docusate Sodium 100 mg 09/26/22 17:08 Docusate 100 Mg Capsule PO 09/26/23 17:07 QHS PRN Constipation Entacapone 200 mg 09/25/22 14:00 09/26/22 17:32 Entacapone 200 Mg Tablet PO 09/25/23 13:59 200 mg QID@0600,1000,1400,1800 ROB Administration Sodium Chloride 1,000 mls @ 20 mls/hr 09/25/22 13:45 09/26/22 17:05 0.9% Sodium Chloride 1,000 Ml IV 09/25/23 13:44 20 mls/hr .Q24H ROB Infusion Gentamicin Sulfate 140 mg/ 103.5 mls @ 207 mls/hr 09/27/22 03:00 Sodium Chloride IV 09/27/22 03:01 POSTOP ONE Vancomycin HCl 1 gm in 250 mls @ 250 mls/hr 09/27/22 01:00 Vancomycin IV 09/27/22 01:59 ONCE ONE Levothyroxine Sodium 100 mcg 09/26/22 06:30 09/26/22 06:02 Levothyroxine 100 Mcg Tablet PO 09/26/23 06:29 100 mcg DAILY@0630 ROB Administration Morphine Sulfate 4 mg 09/26/22 17:08 Morphine Sulfate 4 Mg/Ml Cartridge IV-PUSH Q20M PRN Chest Pain Nitroglycerin 0.4 mg 09/26/22 17:08 Nitroglycerin 0.4 Mg Tab.Subl SUBLINGUAL 09/26/23 17:07 Q5M PRN Chest Pain Ondansetron HCl 4 mg 09/26/22 17:08 Ondansetron 4 Mg/2 Ml Vial IV-PUSH 09/26/23 17:07 Q6H PRN Nausea And Vomiting Rasagiline 1 mg 09/26/22 09:00 09/26/22 10:39 Rasagiline 1 Mg Tablet PO 09/26/23 08:59 1 mg DAILY ROB Administration Sodium Chloride 10 ml 09/25/22 12:45 09/26/22 15:10 Sodium Chloride 0.9 % 10 Ml Syringe IV-PUSH 09/25/23 12:44 10 ml PRN PRN Administration Flush Sodium Chloride 0 ml 09/25/22 13:40 Sodium Chloride 0.9 % 10 Ml Syringe IV-PUSH 09/25/23 13:39 PRN PRN Flush Tramadol HCl 50 mg 09/26/22 17:08 Tramadol 50 Mg Tablet PO 03/25/23 17:07 Q6H PRN Moderate Pain Triamcinolone Acetonide 1 applic 09/26/22 17:08 Triamcinolone 0.1% Cream 15 Gm Tube TOPICAL 09/26/23 17:07 QID PRN Irritation Vitamin D 50 mcg 09/26/22 09:00 09/26/22 17:33 Cholecalciferol 25 Mcg (1,000 Units) Tablet PO 09/26/23 08:59 50 mcg DAILY ROB Administration Documented By: Jordan Gallegos DO 09/26/22 Signed By: <Electronically signed by Jordan Gallegos DO> 09/26/221926 [facility] Work Phone: 1(159) 739-963002-26-2023 Consult note Author Roel Mireles [facility] September 25, 2022 1:46pm Note Date/Time September 25, 2022 1:46pm [facility] [address] [place] [address] Cardiology Consult Note Signed Patient: Magdaleno Valderrama MR#: [id number] : 1940 Acct:[id number] Age/Sex: 82 / M Adm Date: 3 Loc: Room: [address] [place] [address] Type: ADM IN Attending Dr: Jordan Gallegos DO Copies to: MD Jordan Noriega DO William Patrick McGuinn, MD~ Cardiology HPI History of Present Illness Consult Date: 09/25/22 Reason for Consult: Syncope HPI: Mr. Valderrama is a 82 year old male seen for the above He is an individual who had a loss of consciousness going to get his mail. He had been recently experiencing activity related intolerance and/or what sounds like chronotropic incompetence. Shortness of breath easy fatigability and occasional lightheadedness. It appears he has atrial fibrillation for quite some time. Chart suggest that its been there for probably a year. Restoring rhythm has not been attempted in the past. He has no known history of coronary disease. He does have advanced Parkinson's disease for which she sees an neurologist at the [facility]. An echocardiogram performed 2 years ago was basically normal. A Holter monitor was done about a year ago and it demonstrated some pauses up to3.7 seconds. I cannot elicit from the patient any manifestations of coronary disease or heart failure. Review of Systems Review of Systems All other systems reviewed & are negative unless noted below or in HPI Constitutional Constitutional: Reports system reviewed and no additional complaints, except as documented Eyes Eyes: Reports system reviewed and no additional complaints, except as documented ENT Ears, Nose, Mouth, and Throat: Reports system reviewed and no additional complaints, except as documented Cardiovascular Cardiovascular: Reports as per HPI Respiratory Respiratory: Reports system reviewed and no additional complaints, except as documented Gastrointestinal Gastrointestinal: Reports system reviewed and no additional complaints, except as documented Genitourinary Genitourinary: Reports system reviewed and no additional complaints, except as documented Musculoskeletal Musculoskeletal: Reports system reviewed and no additional complaints, except asdocumented Integumentary/Breasts Skin/Breast: Reports system reviewed and no additional complaints, except as documented Neurologic Neurologic: Reports system reviewed and no additional complaints, except as documented Psychiatric Psychiatric: Reports system reviewed and no additional complaints, except as documented Endocrine Endocrine: Reports system reviewed and no additional complaints, except as documented Hematologic/Lymphatic Hematologic/Lymphatic: Reports system reviewed and no additional complaints, except as documented Allergic/Immunologic Allergic/Immunologic: Reports system reviewed and no additional complaints, except as documented PMFSH Vaccinated for COVID-19?: Yes Social History Smoking Status: Never smoker Tobacco Type: cigarettes Substance Use Type: None Meds Medications and Allergies Allergies bacitracin Allergy (Verified 09/25/22 12:07) Unknown Reaction haloperidol [From Haldol] Allergy (Verified 09/25/22 12:07) Unknown Reaction neomycin [From Neosporin ([id number])] Allergy (Verified 09/25/22 12:07) Blister polymyxin B [From Neosporin ([id number])] Allergy (Verified 09/25/22 12:07) Blister Home Medications apixaban 5 mg tablet (Eliquis) 5 mg PO BID 09/25/22 [History Confirmed 09/25/22] aspirin 81 mg tablet 81 mg PO DAILY 09/25/22 [History Confirmed 09/25/22] atorvastatin 20 mg tablet 20 mg PO HS 09/25/22 [History Confirmed 09/25/22] carbidopa 25 mg-levodopa 100 mg tablet 1.5 tab PO QID 09/25/22 [History Confirmed 09/25/22] carbidopa ER 50 mg-levodopa 200 mg tablet,extended release 1 tab PO QID 09/25/22[History Confirmed 09/25/22] cholecalciferol (vitamin D3) 50 mcg (2,000 unit) capsule 50 mcg PO DAILY 09/25/22 [History Confirmed 09/25/22] clonazepam 0.5 mg tablet 0.5 mg PO HS 09/25/22 [History Confirmed 09/25/22] cyanocobalamin (vitamin B-12) 3,000 mcg capsule 3,000 mcg PO DAILY 09/25/22 [History Confirmed 09/25/22] entacapone 200 mg tablet 200 mg PO QID 09/25/22 [History Confirmed 09/25/22] lactulose 10 gram/15 mL oral solution 10 g PO DAILY 09/25/22 [History Confirmed 09/25/22] levothyroxine 100 mcg tablet 100 mcg PO DAILY 09/25/22 [History Confirmed 09/25/22] rasagiline 1 mg tablet 1 mg PO DAILY 09/25/22 [History Confirmed 09/25/22] Exam Physical Exam Vital Signs: Temp Pulse Resp BP Pulse Ox O2 Del Method 97.8 F 63 18 148/68 H 98 Room Air 09/25/22 12:20 09/25/22 13:02 09/25/22 13:02 09/25/22 13:02 09/25/22 13:02 09/25/22 13:02 Eyes Conjunctivae: conjunctivae normal Sclera: sclerae normal Neck Neck: normal visual inspection Carotids: normal carotid upstroke Lymphatic: no lymphadenopathy noted Chest Chest palpation & inspection: normal inspection of the chest Resp Effort & Inspection: normal respiratory effort Auscultation: clear to auscultation bilaterally Cardio Other: Atrial fibrillation with a slow ventricular response. Pauses up to 2 and half seconds. No other adventitious heart sounds GI Inspection: normal to inspection Palpation: soft Skin General: no rashes or lesions noted Neuro General: patient alert, patient awake and patient oriented x3 Cognition: normal cognition Motor: muscle tone normal throughout Sensory Exam: no sensory deficits noted Results Labs Lab results: Intake and Output 09/24/22 09/25/22 09/25/22 23:59 07:59 15:59 Other: Weight 67 kg Patient Weight 09/25/22 23:59 Weight 67 kg A&P - Cardiology (1) Atrial fibrillation: Assessment/Problem Details: It appears he has been treated with Eliquis for at least a year for atrial fibrillation. This would suggest is chronic. Code(s): I48.91 - Unspecified atrial fibrillation (2) Syncope: Assessment/Problem Details: Syncope probably on the basis of bradycardia arrhythmia. He has atrial fibrillation with a slow ventricular response in the absence of any AV kimber blocking drugs. He has documented pauses on event monitor performed last year. In light of all the above I believe pacemaker implantation is indicated The indication for pacemaker implantation procedural technique risk benefits andalternatives were discussed and he agrees to the procedure. We will schedule itfor Monday. Code(s): R55 - Syncope and collapse (3) Parkinson disease: Code(s): G20 - Parkinson's disease Plan Stop Eliquis. Bedrest. Pacemaker implant tomorrow afternoon. Documented By: Roel Mireles MD 1341 Signed By: <Electronically signed by MD Roel Mireles> 09/25/22 1346 [facility] Work Phone: 1(456) 353-513802-26-2023 History and physical note Author Jordan Gallegos [facility] September 25, 2022 1:23pm Note Date/Time September 25, 2022 12:49pm [facility] [address] [place] [address] Hospitalist H&P Signed Patient: Magdaleno Valderrama MR#: [id number] : 1940 Acct:[id number] Age/Sex: 82 / M Adm Date: 3 Loc: Room: [address] [place] [address] Type: ADM IN Attending Dr: Jordan Gallegos DO Copies to: MD Jordan Noriega, ~ HPI DATE OF EXAMINATION: 09/25/22 CHIEF COMPLAINT: bradycardia HISTORY OF PRESENT ILLNESS: This patient is an 82-year-old male who presents as a direct admission from the intensive care unit. He was admitted there yesterday after experiencing a significant fall with loss of consciousness at home. Presented with a c-collar on with notable abrasions and lacerations of the face. Initial work-up revealedhigh-sensitivity troponin within normal limits, BUN and creatinine 22/1.17 with an estimated GFR 59. Other chemistries are unremarkable. H&H of 11.7/35.8% andmild thrombocytopenia of 130 on CBC. No leukocytosis. Urinalysis was unremarkable. Initial EKG was reported as showing a rate controlled atrial fibrillation. Per accompanying documentation the patient has been experiencing increasingly frequent falls at home and has a notable history of A-fib on both aspirin and Eliquis chronically. He does not have any medications for rate or rhythm control noted within his home medication list. While inpatient the patient reportedly exhibited worsening bradycardia with heart rates into the 20sand a reported rhythm of bradycardic A-fib. Reports patient was asymptomatic. received IV atropine. The patient's other vital signs remained stable in the ERand his bradycardia did not continue to worsen. His EKG did not report any definitive heart block. On arrival here at [facility] he has heart rate in the high 40s with significant ectopy. EKG to my eye appears to be in a junctional rhythm with underlying A-fib. No visible P waves. The patient is sitting up atthe bedside, alert and oriented x3. He denies any shortness of breath, chest pain or palpitations. Reports his low heart rate at outside facility was while he was sleeping and had no symptoms. Does report dizziness when getting up to go to the bathroom at night so he has been more cautious in doing so, taking a minute to get his bearings prior to walking. He also reports significant dizziness when reaching for things/bending over. Chronically the patient is known to have Parkinson's disease for which she is medicated. Reports having had COVID last year as well as his passing away. Significant 30 to 40 pound weight loss reported over the past 3 months. Physical Examination: GENERAL APPEARANCE: Alert, up in bed AAOx3, resting head-bobbing HEENT: NCAT, MMM NECK: Neck soft w/o masses, no JVD, no murmurs CARDIAC: Normal S1 and S2. No S3, S4 or murmurs. LUNGS: Clear to auscultation bilaterally. no wheeze/rhonchi/rales ABDOMEN: Positive bowel sounds. Soft, nontender. No guarding or signs of an acute abdomen EXTREMITIES: No clubbing, cyanosis or edema NEUROLOGICAL: No focal deficits SKIN: Multiple ecchymotic lesions, significant bruising PSYCHIATRIC: Appropriate mood and affect Assessment and plan: 1. Syncope Events do not necessarily seem vasovagal in nature and certainly his bradycardiacould be a primary contributing factor. He does have Parkinson's disease but noother known neurologic disease. Denies a history of atrial fibrillation. His family is also unsure of any history of this. They are the primary managers of his medications and he does have Eliquis listed in his home medications. Deniesa history of blood clots. Rhythm here appears to exhibit a bradycardic A-fib. Will obtain echocardiogram, continue telemetry as well as obtain either MRI or ultrasound imaging of subclavian and carotid arteries. Obtain bilateral blood pressures. Hold any blood thinners for the time being for potential procedure. 2. Parkinson's disease We will continue the patient's home medications including carbidopa levodopa 4 times daily, entacapone 200 mg 4 times daily and rasagiline 1 mg daily. If any further concerning neurologic findings develops will consider neurology consultation. 3. Hypothyroidism Continue home levothyroxine 100 mcg daily. Review of Systems Review of Systems All other systems reviewed & are negative unless noted below or in HPI Meds Medications and Allergies Allergies bacitracin Allergy (Verified 09/25/22 12:07) Unknown Reaction haloperidol [From Haldol] Allergy (Verified 09/25/22 12:07) Unknown Reaction neomycin [From Neosporin ([id number])] Allergy (Verified 09/25/22 12:07) Blister polymyxin B [From Neosporin ([id number]-[id number]-[id number])] Allergy (Verified 09/25/22 12:07) Blister Home Medications apixaban 5 mg tablet (Eliquis) 5 mg PO BID 09/25/22 [History Confirmed 09/25/22] aspirin 81 mg tablet 81 mg PO DAILY 09/25/22 [History Confirmed 09/25/22] atorvastatin 20 mg tablet 20 mg PO HS 09/25/22 [History Confirmed 09/25/22] carbidopa ER 50 mg-levodopa 200 mg tablet,extended release 1 tab PO QID 09/25/22[History Confirmed 09/25/22] cholecalciferol (vitamin D3) 50 mcg (2,000 unit) capsule 50 mcg PO DAILY 09/25/22 [History Confirmed 09/25/22] clonazepam 0.5 mg tablet 0.5 mg PO HS 09/25/22 [History Confirmed 09/25/22] cyanocobalamin (vitamin B-12) 3,000 mcg capsule 3,000 mcg PO DAILY 09/25/22 [History Confirmed 09/25/22] entacapone 200 mg tablet 200 mg PO QID 09/25/22 [History Confirmed 09/25/22] lactulose 10 gram/15 mL oral solution 10 g PO DAILY 09/25/22 [History Confirmed 09/25/22] levothyroxine 100 mcg tablet 100 mcg PO DAILY 09/25/22 [History Confirmed 09/25/22] rasagiline 1 mg tablet 1 mg PO DAILY 09/25/22 [History Confirmed 09/25/22] Exam Physical Exam Vital Signs: Temp Pulse Resp BP Pulse Ox O2 Del Method 97.8 F 45 L 20 137/72 97 Room Air 09/25/22 12:20 09/25/22 12:20 09/25/22 12:20 09/25/22 12:20 09/25/22 12:20 09/25/22 12:20 Documented By: Jordan Gallegos DO 09/25/22 12 42 Signed By: <Electronically signed by Jordan Gallegos DO> 09/25/[address] [facility] Work Phone: 1(907) 602-604101-30-2023 Miscellaneous Notes* Telephone Encounter - Ayanna Tong Research Coordinator - 08/29/2022 12:[address] Carbajal's request, I spoke to Mr. Magdaleno Valderrama and his son Cristian today to give them someinformation on the [employer] that is run by the [facility] for folks who would like to donate their brains to a program that focuses on neurodegenerative disorders. I emailed the info to Cristian, at their request. Ayanna Tong, Research Coordinator documented in this encounterShel[facility]01-19-2023 Miscellaneous Notes* Telephone Encounter - Sherry Worley RN - 08/18/2022 3:15 PM EST Faxed 06/21/22 office notes w/ med list. Labonnie C Worley, RN * Telephone Encounter - [place] Tommie Turpin - 08/17/2022 1:05 PM EST Patient PCP Dr. Zuñiga called asking to speak to Dr. Carbajal. He says there's a lot of confusion and needs an antidepressant. He needs to clarify the medications he's on through the Clinic. He's not sure and the family isn't sure . Dr. Zuñiga said either call his cell or if there is a correctlist that can be faxed that would suffice as well. cell documented in this encounterShel[facility] Hospital11-29-2022 Miscellaneous Notes* Telephone Encounter - Efren Carbajal DO - 06/28/2022 3:16 PM EST Keep on hand for now - hewill likely need it in the future Efren Carbajal DO June 28, 2022 3:17 PM * Telephone Encounter - Kacie Ferguson - 06/28/2022 1:36 PM EST Patient calling to say that he is feeling much better since last OV, like he did before Covid. He hasn't gotten the Inbrija yet but wants to know if he should even take this now that he's not having the balance issues and shuffling? (please leave detailed message if you don't reach patient) documented in this encounterShel[facility]11-25-2022 History of Present illness Narrative* Rhoda Romero - 06/24/2022 8:22 AM EST [facility] received prescription(s) for Inbrija from Dr. Uriarte's office.Benefits investigation was conducted, indicating that a prior authorization is required by patient's insurance plan with Medicare [employer]. Encounter will be updated once prior authorization has been submitted by [facility]. Rhoda Romero CPhT [facility] P: [phone] F: [phone] documented in this encounterSheltering Arms HospitalChi complaint Narrative - Reported MAGDALENO VALDERRAMA is being seen for a consultation for Tachy.[facility] Work Phone: Discharge summary Author Jordan Gallegos [facility] September 29, 2022 5:18pm Note Date/Time September 29, 2022 5:18 pm [facility] [address] [place] [address] Discharge Summary Signed Patient: Magdaleno Valderrama MR#: [id number] : 1940 Acct:[id number] Age/Sex: 82 / M Adm Date: 3 Loc: Room: [address] [place] [address]: Jordan Gallegos DO Copies to: MD Jordan Noriega, ~ Providers Date of Discharge: 09/27/22 Discharging Provider: Jordan Gallegos Primary Care Provider: Amy Zuñiga Consults: 09/25/22 12:40 Consult to Cardiology Routine 09/27/22 14:04 KRISTIN [[facility] Transition of Care Referral] Routine Discharge Diagnosis Final Diagnosis Final Discharge Diagnosis: 1. Syncope 2. Atrial fibrillation 3. Complete heart block 4. Status post pacemaker 5. Parkinson's disease 6. Hypothyroidism Summary Hospital Course Hospital course: This patient is an 82-year-old male presented to the emergency department at outside facility following a syncopal episode. He was admitted at this outside facility for further work-up. Noted to be significantly bradycardic into the 20s prompting him to be transferred here to [facility]. On arrival he is in A- fib with slow ventricular response. He was not on any AV kimber blocking agents. Cardiology was consulted and took the patient for implantation of dual-chamber pacemaker on 09/26/2022. Postoperatively his coursewas uncomplicated. His vitals are remained stable. He is appropriately alert and oriented on day of discharge. He is being discharged home to follow-up withhis PCP as well as cardiology as an outpatient. Perioperative antibiotic prescribed. Physical Examination: GENERAL APPEARANCE: Alert, up in bed AAOx3 HEENT: NCAT, MMM NECK: Neck soft w/o masses, no JVD CARDIAC: Normal S1 and S2. No S3, S4 or murmurs. LUNGS: Clear to auscultation bilaterally. no wheeze/rhonchi/rales ABDOMEN: Positive bowel sounds. Soft, nontender. No guarding or signs of an acute abdomen EXTREMITIES: No clubbing, cyanosis or edema NEUROLOGICAL: No focal deficits SKIN: Diffuse bruising/petechiae since fall PSYCHIATRIC: Appropriate mood and affect 35 minutes were spent coordinating the discharge of this patient. Time Spent with Patient Time spent providing/coordinating discharge services (# min): 35 Surgeries and Procedures Operation Date: 09/26/22 15:15 Actual Procedures p OR Pacemaker Insertion(Not Applicable) - Roel Mireles MD Exam Physical Exam Vital Signs: Temp Pulse Resp BP Pulse Ox O2 Del Method 98.2 F 69 20 146/95 H 98 Room Air 09/27/22 03:00 09/27/22 08:11 09/27/22 08:11 09/27/22 08:11 09/27/22 08:11 09/27/22 08:11 Discharge Plan Discharge Plan Patient Disposition: Home Activity: Ambulate as Tolerated Comment: See pacemaker discharge instructions for activity restrictions. Diet: Regular Additional Instructions: Wound care daily: *Right eyebrow laceration and nasal abrasion-Wipe clean with Theraworx protect and top with a band aid. DISCHARGE INSTRUCTIONS FOR PERMANENT PACEMAKER AND IMPLANTABLE CARDIOVERTER DEFIBRILLATOR (ICD) INSTRUCTIONS 1. Incision should be kept clean and dry. Please notify us if the site becomesred, swollen, develops drainage, or if you begin having a fever or chills beforeyour 1 week appointment. 2. May shower- avoid running water directly on your incision. 3. Do NOT stop antibiotics. If you have problems with them, please call. 4. Call with any symptoms of dizziness, lightheadedness, or passing out. 5. You may use the involved arm but you must avoid reaching backwards with the involved arm for 6 [address] to [address] your pacemaker/ICD implant card in your wallet/purse to carry with you at all times. You will receive this card in 6-8 weeks by mail. 7. You may resume driving in 2 weeks. 8. Continue all your home medications and the prescribed antibiotics per the medication reconciliation form. APPOINTMENT: 1. Office visit with nurse for incision check in the [facility] Office on 10/03/2022 at 10:30am. 2. Chest x-ray to be done the same day as pacemaker check at [facility]12/29/2022. 3. Pacemaker/ICD clinic appointment at [facility] 12/29/2022 at 10:00am. 4. Office visit with Dr. Cesar at [facility] in [place] on 01/11/2023 at 3:00pm. [] Instructions: Atrial Fibrillation (DC) Prescriptions: New clindamycin HCl 300 mg capsule 600 mg PO TID 2 Days Qty: 12 0RF Continued atorvastatin 20 mg tablet 20 mg PO HS Patient Comments: TAKE 1 TABLET BY MOUTH EVERYDAY AT BEDTIME carbidopa-levodopa 50-200 mg tablet extended release 1 tab PO QID Patient Comments: TAKE 1 TABLET AT 6 AM, 10 AM, 2 PM, AND 6 PM clonazepam 0.5 mg tablet 0.5 mg PO HS Patient Comments: TAKE 1 TABLET BY MOUTH EVERY DAY AT BEDTIME NEEDED FOR INSOMNIA/NIGHTMARES cholecalciferol (vitamin D3) 50 mcg (2,000 unit) Capsule 50 mcg PO DAILY cyanocobalamin (vitamin B-12) 3,000 mcg Capsule 3,000 mcg PO DAILY levothyroxine 100 mcg Tablet 100 mcg PO DAILY entacapone 200 mg Tablet 200 mg PO QID Rx Instructions: administer at the same time as l-dopa/carbidopa dose lactulose 10 gram/15 mL Solution 10 g PO DAILY rasagiline 1 mg Tablet 1 mg PO DAILY carbidopa-levodopa 25-100 mg tablet 1.5 tab PO QID Patient Comments: TAKE 1.5 TABLETS AT 6 AM, 10 AM, 2 PM, AND 6 PM Eliquis 5 mg tablet 5 mg PO BID 30 Days Qty: 60 6RF Patient Comments: TAKE 1 TABLET TWICE A DAY Rx Instructions: restart in 48 hours which is 09/30/2022 morning Discontinued aspirin 81 mg Tablet 81 mg PO DAILY Follow Up: [facility] Transitions of Care [Outside] - 10/05/22 12:45 pm (You have been referred to the [facility] for Coordinated Care ([facility]) for a post discharge education visit because you have one or more conditions that have been associated with a moderate to high risk of complications that may increase the likelihood that you will be readmitted to the hospital again in the near future. .? Address:? [address] [place] [address], [facility].? NOTE:? PLEASE BRING ALL OF YOUR MEDICATION BOTTLES WITH YOU TO THE APPOINTMENT WELL YOUR DISCHARGE INSTRUCTIONS.) Edel Cesar MD [Active Staff] - 11/25/22 9:30 am Amy Zuñiga MD [Primary Care Provider] - 10/11/22 1:40 pm (You have been scheduled for a follow up appointment for the following date and time, please call to reschedule if needed. Please bring your insurance card to this appointment. ) Documented By: Jordan Gallegos DO 09/29/22 17 13 Signed By: <Electronically signed by Jordan Gallegos DO> 09/29/22 4067 [facility] Work Phone: Evalutzrve note* Diagnosis Parkinson's disease (HCC)- Primary Paralysis agitans documented in this encounter [facility]* Diagnosis Onset Date Resolution Status Atrial fibrillation acute Parkinson disease acute Syncope acute [facility] Work Phone: evalusoonw note* Diagnosis No-show for appointment- Primary [facility] Diagnosis Motor fluctuations related to medication use in Parkinson's disease (HCC)- Primary Primary parkinsonism (HCC) Paralysis agitans [facility] noteNo assessment information [facility] Work Phone: evaluation note* Diagnosis Primary parkinsonism- Primary Paralysis agitans Fatigue, unspecified type documented in this encounter [facility]* Diagnosis Motor fluctuations related to medication use in Parkinson's disease documented [facility] encounter [facility]* Diagnosis Motor fluctuations related to medication use in Parkinson's disease- Primary [facility]* Diagnosis Persistent atrial fibrillation (CMS/HCC)- Primary Atrial fibrillation Complete heart block (CMS/HCC) Atrioventricular block, complete Abnormal echocardiogram Nonspecific (abnormal) findings on radiological and other examination of other intrathoracic organs Pacemaker Cardiac pacemaker in situ Pulmonary hypertension (CMS/HCC) Other chronic pulmonary heart diseases Chronic right heart failure (CMS/HCC) documented in this encounter [facility] Work Phone: Evaluation note* Diagnosis Persistent atrial fibrillation (CMS/HCC) Atrial fibrillation documented in this encounter [facility] [facility] Work Phone: Evaluation note* Diagnosis Onset Date Resolution Status Acute kidney injury acute Afib acute Dehydration acute Fall acute Hypothyroidism acute Parkinson disease acute Weakness acute [facility] Work Phone: Evaluation note* Diagnosis Primary parkinsonism- Primary Paralysis agitans Motor fluctuations related to medication use in Parkinson's disease [facility] Diagnosis Primary parkinsonism Paralysis agitans Motor fluctuations related to medication use in Parkinson's disease [facility] Diagnosis Muscle pain- Primary Mylagia and myositis, unspecified Encounter for other preprocedural examination Pain in left leg documented in this encounter [facility] general Narrative - Reported* Type Description Date Medical History Syncope Medical History Atrial fibrillation Medical History Complete heart block Medical History Status post pacemaker Medical History Parkinson's disease Medical History Hypothyroidism Surgical History Pacemaker implantation 09/2022 Surgical History Removal of thyroid Surgical History Appendectomy Surgical History [place] teeth Surgical History Tonsillectomy Hospitalization History See above [email or web address] Other History of Present illness Narrative* Patient is here for cardiovascular evaluation for atrial fibrillation and arrhythmia. Patient is 81-year-old with history of Parkinson disease. He reports recently during her visit to the emergency room he was noted to have irregular pulse and was advised to see his PCP and neurologist. He was seenby his neurologist who observed regular pulse and discussed the case with me. The patient admits to limited exercise tolerance due to his Parkinson disease. He denies complaint of chest pain, palpitation, lightheadedness, dizziness or syncope. Reviewing available records suggest the patient had Parkinson disease. 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 His recent echocardiogram showed dilated left atrium. EKG today showed sinus rhythm but significant and frequent premature atrial ectopy and arrhythmia were noted. Clearly his AV at very high risk for atrial fibrillation and complication related to A. fib. His available records including his neurologist evaluation all noted and reviewed with him. * Assessment * 1. Probable paroxysmal atrial fibrillation based on the review of available record, EKG showing sinus bradycardia with frequent atrial ectopy and the finding of dilated left atria * 2. Parkinson disease * 3. 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 Hypothyroidism on replacement therapy * 5. Abnormal echocardiogram moderate to severe left atrial dilatation and mild to moderate mitral regurgitation but preserved LV systolic function * Plan * 1. I recommended patient to initiated treatment with Eliquis 5 mg twice daily and to reduce his aspirin to twice weekly. Risk, benefit and alternative anticoagulation reviewed with patient at length * 2. We will do 24-hour Holter monitor to assess for bradycardia or tachyarrhythmia * 3. Patient was advised to notify me with change in cardiac status or symptoms 0.4. We will try to retrieve his recent ER visit * 4. I reviewed with patient his available record * 5. We will try to retrieve his lab work and lipid profile. Considering patient had evidence of small vessel disease he does meet the criteria for statin therapy [facility] Work Phone: Hospital course Narrative No data available for this section [facility] Additional Instructions Wound care daily: *Right eyebrow laceration and nasal abrasion-Wipe clean with Theraworx protect and top with a band aid. DISCHARGE INSTRUCTIONS FOR PERMANENT PACEMAKER AND IMPLANTABLE CARDIOVERTER DEFIBRILLATOR (ICD) INSTRUCTIONS 1. Incision should be kept clean and dry. Please notify us if the site becomes red, swollen, develops drainage, or if you begin having a fever or chills before your 1 week appointment. 2. May shower- avoid running water directly on your incision. 3. Do NOT stop antibiotics. If you have problems with them, please call. 4. Call with any symptoms of dizziness, lightheadedness, or passing out. 5. You may use the involved arm but you must avoid reaching backwards with the involved arm for 6 weeks[address] 6[address] Remember to place your pacemaker/ICD implant card in your wallet/purse to carry with you at all times. You will receive this card in 6-8 weeks by mail. 7. You may resume driving in 2 weeks. 8. Continue all your home medications and the prescribed antibiotics per the medication reconciliation form. APPOINTMENT: 1. Office visit with nurse for incision check in the [facility] Office on 10/03/2022 at 10:30am. 2. Chest x-ray to be done the same day as pacemaker check at [facility] 12/29/2022. 3. Pacemaker/ICD clinic appointment at [facility] 12/29/2022 at 10:00am. 4. Office visit with Dr. Cesar at [facility] in [place] on 01/11/2023 at 3:00pm. [][facility] Work Phone: Hospital Discharge instructions Additional Instructions No driving x [address] [facility] Work Phone: Hospital Discharge instructions No data available for this section [facility]* Initiate Home Health Time Frame: 07/26/23, Location: Determined By Patient [facility] Work Phone: Progress note No data available for this section [facility] Diagnostic Procedure Only (Routine) - Pending Review Specialty Diagnoses / Procedures Referred By Nely garcia Referred To Contact US IMAGING Diagnoses Muscle pain Encounter for other preprocedural examination Pain in left leg Procedures US DVT LOWER BILATERAL DUP-SCAN XTR VEINS COMPLETE BILATERAL STUDY Efren Carbajal DO [address] [facility] [place] [address] [facility] [place] [address] Referral ID Status Reason Start Date Expiration Date Visits Requested Visits Authorized [id number] Pending Review Auto-Generat ed Referral 10/25/2023 11/23/2024 1 1 [facility] Family History Unknown Family Member Name Dates Details Family history of malignant neoplasm of skin: Mother(V16.8, Z80.8) Status:Active Family history of malignant neoplasm of prostate: Father(V16.42, Z80.42) Status:Active Unknown Family Member Name Dates Details Family history of malignant neoplasm of skin: Mother(V16.8, Z80.8) Status:Active Family history of malignant neoplasm of prostate: Father(V16.42, Z80.42) Status:Active Unknown Family Member Name Dates Details Family history of malignant neoplasm of skin: Mother(V16.8, Z80.8) Status:Active Family history of malignant neoplasm of prostate: Father(V16.42, Z80.42) Status:Active Unknown Family Member Name Dates Details Family history of malignant neoplasm of prostate: Father(V16.42, Z80.42) Status:Active Family history of malignant neoplasm of skin: Mother(V16.8, Z80.8) Status:Active Unknown Family Member Name Dates Details Family history of malignant neoplasm of skin: Mother(V16.8, Z80.8) Status:Active Family history of malignant neoplasm of prostate: Father(V16.42, Z80.42) Status:Active Unknown Family Member Name Dates Details Family history of malignant neoplasm of skin: Mother(V16.8, Z80.8) Status:Active Family history of malignant neoplasm of prostate: Father(V16.42, Z80.42) Status:Active Unknown Family Member Name Dates Details Family history of malignant neoplasm of skin: Mother(V16.8, Z80.8) Status:Active Family history of malignant neoplasm of prostate: Father(V16.42, Z80.42) Status:Active Unknown Family Member Name Dates Details Family history of malignant neoplasm of skin: Mother(V16.8, Z80.8) Status:Active Family history of malignant neoplasm of prostate: Father(V16.42, Z80.42) Status:Active Unknown Family Member Name Dates Details Family history of malignant neoplasm of skin: Mother(V16.8, Z80.8) Status:Active Family history of malignant neoplasm of prostate: Father(V16.42, Z80.42) Status:Active Summary Purpose Advance Directives Advance Directive Response Recorded Date/ Time Advance Directives No August 11:41am Advance Directive Response Recorded Date/ Time Advance Directives No August 12:41pm Chief Complaint Patient is here status post pacemaker insertion done by Dr. Roel Mireles MD at [facility] [place] 09/26/22.Dr. Nica García MD in suite. Patient denies any cardiac complaints and is feeling well. Medication list was updated verbally with patient. ATB were given and completed. Insertion site was free of any redness, swelling, or signs of infection. Insertion site was reviewed by Destiny Blackmon RN prior todischarge. To Dr. Roel Mireles MD for review.Patient is here status post pacemaker insertion done by Dr. Roel Mireles MD at [facility] [place] 09/26/22.Dr. Nica García MD in suite. Patient denies any cardiac complaints and is feeling well. Medication list was updated verbally with patient. ATB were given and completed. Insertion site was free of any redness, swelling, or signs of infection. Insertion site was reviewed by Destiny Blackmon RN prior todischarge. To Dr. Roel Mireles MD for review.DISCUSS DCC /EKG. Chief Complaint and Reason for Visit Chief Complaint Bradycardia Reason for Visit Atrial fibrillation Parkinson disease Syncope Chief Complaint Bradycardia KRISTIN Heart issues I48.0 Reason for Visit Atrial fibrillation Parkinson disease Syncope Chief Complaint KRISTIN Heart issues I48.0 CHB Chief Complaint CHB Chief Complaint CHB poss afib, fatigue Reason for Visit Acute kidney injury Afib Dehydration Fall Hypothyroidism Parkinson disease Weakness Chief Complaint CHB poss afib, fatigue I48.19 I44.2 Reason for Visit Acute kidney injury Afib Dehydration Fall Hypothyroidism Parkinson disease Weakness Reason for Referral Specialty Diagnoses / Procedures Referred By Nely garcia Referred To Contact Diagnoses Persistent atrial fibrillation (CMS/HCC) Procedures ECG 12 Lead Edel Cesar MD [address] [facility] [address], [address] [address] Referral ID Status Reason Start Date Expiration Date V isits Requested Visits Authorized [id number] Pending Review 07/05/2023 07/04/2024 1 1 Specialty Diagnoses / Procedures Referred By Contac t Referred To Contact Cardiology Diagnoses Persistent atrial fibrillation (CMS/HCC) Complete heart block (CMS/HCC) Chronic right heart failure (CMS/HCC) Procedures Follow Up In Cardiology Edel Cesar MD [address] [place] [address] Edel Cesar MD [address] [facility], [address] [place] [address] Referral ID Status Reason Start Date Expiration Date V isits Requested Visits Authorized [id number] Authorized 07/05/2023 07/04/2024 1 1 Referral ID Status Reason Start Date Expiration Date V isits Requested Visits Authorized [id number] Pending Review 07/05/2023 07/04/2024 1 1 Specialty Diagnoses / Procedures Referred By Nely garcia Referred To Contact Diagnoses Primary parkinsonism Fatigue, unspecified type Procedures PROVIDER ORDERED FOLLOW UP OFFICE/OUTPATIENT [facility] 60-74 MINUTES Efren Carbajal DO [address] [place] [address] Referral ID Status Reason Start Date Expiration Date V isits Requested Visits Authorized [id number] Authorized 11/04/2023 02/02/2024 1 1 Additional Source Comments (unrecognized sect ion and content) No Status Records FoundNo Status Records FoundNo Status Records FoundNo Status Records FoundNo Status Records FoundNo Status Records FoundNo Status Records FoundNo Status Records FoundNo Status Records FoundNo Status Records Found INFORMATION SOURCE (unrecogn ized section and content) DATE CREATED AUTHOR 02/28/2022 [employer] DATE CREATED AUTHOR AUTHOR'S ORGANIZ ATION 12/11/2022 [facility] DATE CREATED AUTHOR AUTHOR'S ORGANIZ ATION 05/08/2023 [facility] DATE CREATED AUTHOR AUTHOR'S ORGANIZ ATION 05/08/2023 [facility] DATE CREATED AUTHOR AUTHOR'S ORGANIZ ATION 05/18/2023 [facility] DATE CREATED AUTHOR AUTHOR'S ORGANIZ ATION 08/18/2023 [facility] DATE CREATED AUTHOR AUTHOR'S ORGANIZ ATION 09/03/[address] [facility] DATE CREATED AUTHOR AUTHOR'S ORGANIZ ATION 09/10/2023 [facility] DATE CREATED AUTHOR AUTHOR'S ORGANIZ ATION 10/06/2023 [facility] DATE CREATED AUTHOR AUTHOR'S ORGANIZ ATION 10/12/2023 [facility] Source Comments (unrecognize d section and content) In the event this informatio n is protected by the Federal Confidentiality of Alcohol and Drug Abuse Patient Records regulations: The Federal rules restrict any use of the information to criminally investigate or prosecute any alcohol or drug abuse patient.[facility] the event this information is protected by the Federal Confidentiality of Alcohol and Drug Abuse Patient Records regulations: The Federal rules restrict any use of the information to criminally investigate or prosecute any alcohol or drug abuse patient.[facility] the event this information is protected by the Federal Confidentiality of Alcohol and Drug Abuse Patient Records regulations: The Federal rules restrict any use of the information to criminally investigate or prosecute any alcohol or drug abuse patient.[facility] the event this information is protected by the Federal Confidentiality of Alcohol and Drug Abuse Patient Records regulations: The Federal rules restrict any use of the information to criminally investigate or prosecute any alcohol or drug abuse patient.[facility] the event this information is protected by the Federal Confidentiality of Alcohol and Drug Abuse Patient Records regulations: The Federal rules restrict any use of the information to criminally investigate or prosecute any alcohol or drug abuse patient.[facility] the event this information is protected by the Federal Confidentiality of Alcohol and Drug Abuse Patient Records regulations: The Federal rules restrict any use of the information to criminally investigate or prosecute any alcohol or drug abuse patient.[facility] the event this information is protected by the Federal Confidentiality of Alcohol and Drug Abuse Patient Records regulations: The Federal rules restrict any use of the information to criminally investigate or prosecute any alcohol or drug abuse patient.[facility] the event this information is protected by the Federal Confidentiality of Alcohol and Drug Abuse Patient Records regulations: The Federal rules restrict any use of the information to criminally investigate or prosecute any alcohol or drug abuse patient.[facility] the event this information is protected by the Federal Confidentiality of Alcohol and Drug Abuse Patient Records regulations: The Federal rules restrict any use of the information to criminally investigate or prosecute any alcohol or drug abuse patient.[facility] the event this information is protected by the Federal Confidentiality of Alcohol and Drug Abuse Patient Records regulations: The Federal rules restrict any use of the information to criminally investigate or prosecute any alcohol or drug abuse patient.[facility] the event this information is protected by the Federal Confidentiality of Alcohol and Drug Abuse Patient Records regulations: The Federal rules restrict any use of the information to criminally investigate or prosecute any alcohol or drug abuse patient.[facility] the event this information is protected by the Federal Confidentiality of Alcohol and Drug Abuse Patient Records regulations: The Federal rules restrict any use of the information to criminally investigate or prosecute any alcohol or drug abuse patient.[facility] the event this information is protected by the Federal Confidentiality of Alcohol and Drug Abuse Patient Records regulations: The Federal rules restrict any use of the information to criminally investigate or prosecute any alcohol or drug abuse patient.[facility] the event this information is protected by the Federal Confidentiality of Alcohol and Drug Abuse Patient Records regulations: The Federal rules restrict any use of the information to criminally investigate or prosecute any alcohol or drug abuse patient.[facility] the event this information is protected by the Federal Confidentiality of Alcohol and Drug Abuse Patient Records regulations: The Federal rules restrict any use of the information to criminally investigate or prosecute any alcohol or drug abuse patient.[facility] the event this information is protected by the Federal Confidentiality of Alcohol and Drug Abuse Patient Records regulations: The Federal rules restrict any use of the information to criminally investigate or prosecute any alcohol or drug abuse patient.[facility] the event this information is protected by the Federal Confidentiality of Alcohol and Drug Abuse Patient Records regulations: The Federal rules restrict any use of the information to criminally investigate or prosecute any alcohol or drug abuse patient.[facility] the event this information is protected by the Federal Confidentiality of Alcohol and Drug Abuse Patient Records regulations: The Federal rules restrict any use of the information to criminally investigate or prosecute any alcohol or drug abuse patient.[facility] the event this information is protected by the Federal Confidentiality of Alcohol and Drug Abuse Patient Records regulations: The Federal rules restrict any use of the information to criminally investigate or prosecute any alcohol or drug abuse patient.[facility] Reason for Visit (unrecogniz ed section and content) Reason Onset Date Comments [facility] Neurology - Treatment Referral 06/24/2022 [facility] Insurance Authorization 06/24/2022 BERE palacio Pending Reason Comments Clinical Update Medication Question Reason Comments Medication Problem Reason Comments Patient Question Reason Comments No Show Reason Comments Parkinson's Disease Reason Onset Date Comments Refill Request 01/30/2023 Reason Comments Established Patient not sleeping Reason Onset Date Comments [facility] Neurology - Patient Assistance 06/26/2023 [facility] Insurance Authorization 06/26/2023 BERE Appro fatou Reason Comments Follow-up 6 months Specialty Diagnoses / Procedures Referred By Contac t Referred To Contact Diagnoses Persistent atrial fibrillation ([facility]) Procedures ECG 12 Lead Edel Cesar MD [address] [facility] [address], [address] [address] Referral ID Status Reason Start Date Expiration Date V isits Requested Visits Authorized [id number] Pending Review 07/05/2023 07/04/2024 1 1 Reason Comments Refill Request Reason Comments EKG visit Specialty Diagnoses / Procedures Referred By Contac t Referred To Contact Diagnoses Persistent atrial fibrillation ([facility]) Procedures ECG 12 Lead Edel Cesar MD [address] [facility] [address], [address] [address] Referral ID Status Reason Start Date Expiration Date V isits Requested Visits Authorized [id number] Pending Review 07/07/2023 07/06/2024 1 1 Reason Onset Date Comments Refill Request 07/13/2023 Reason Comments Clarify C/L CR Care Teams (unrecognized sec tion and content) Team Status: Active Member Role Status Dates Amy Zuñiga MD Primary Care Provider Active Team Status: Inactive Member Role Status Dates Amy Zuñiga MD Primary Care Provider Active Jordan Gallegos , Admit Provider, Attending Provider Active Ayana Fenton RN Other Provider Active Sara Valdes DO Other Provider Active Courtney Fleming MD Other Provider Active Roel Mireles MD Other Provider Active Edel Cesar MD Other Provider Active Magdaleno Owusu MD Other Provider Active Chandni Ayers APRN Other Provider Active Nica García MD Other Provider Active Susan Shaw MD Other Provider Active Domenico Isidro MD Other Provider Active Marcia Clifton , [facility]- Other Provider Active Lisy Ugarte MD Other Provider Active Team Status: Inactive Member Role Status Dates Amy Zuñiga MD Primary Care Provider Active Jaylin Prahdan [facility] Attending Provider Active Team Status: Inactive Member Role Status Dates Amy Zuñiga MD Primary Care Provider Active Edel Cesar MD Attending Provider, Referring Provider Active Roll Clamp Operator Relationship Specialty Start Date End Date Amy Zuñiga MD [address] [place] [address] PCP - General 03/06/09 Roll Clamp Operator Relationship Specialty Start Date End Date Amy Zuñiga MD [address] [place] [address] PCP - General 03/06/09 Roll Clamp Operator Relationship Specialty Start Date End Date Amy Zuñiga MD [address] [place] [address] PCP - General 03/06/09 Pamela Briseno, KEKE.DOGMAN/WOMAN [address] [place] [address] Liaison Neurology 08/15/22 Roll Clamp Operator Relationship Specialty Start Date End Date Amy Zuñiga MD [address] [place] [address] PCP - General 03/06/09 Pamela Briseno, KEKE.DOGMAN/WOMAN [address] [place] [address] Liaison Neurology 08/15/22 Roll Clamp Operator Relationship Specialty Start Date End Date Amy Zuñiga MD [address] [place] [address] PCP - General 03/06/09 Pamela Briseno SOCIAL SCIENCES DEPARTMENT CHAIR.DOGMAN/WOMAN [address] [place] [address] Liaison Neurology 08/15/22 Team Status: Inactive Member Role Status Dates Amy Zuñiga MD Primary Care Provider Active Roel Mireles MD Attending Provider Active Roll Clamp Operator Relationship Specialty Start Date End Date Amy Zuñiga MD [address] [place], [place] [id number] PCP - General 03/06/09 Pamela Briseno SOCIAL SCIENCES DEPARTMENT CHAIR.DOGMAN/WOMAN [address] [place] [address] Liaison Neurology 08/15/22 Team Status: Active Member Role Status Dates Christo Saab MD Primary Care Provider Active Team Status: Inactive Member Role Status Dates Roel Mireles MD Attending Provider Active Christo Saab MD Primary Care Provider Active Roll Clamp Operator Relationship Specialty Start Date End Date Amy Zuñiga MD [address] [place], [place] [id number] PCP - General 03/06/09 Pamela Briseno SOCIAL SCIENCES DEPARTMENT CHAIR.DOGMAN/WOMAN [address] [place] [address] Liaison Neurology 08/15/22 Roll Clamp Operator Relationship Specialty Start Date End Date Amy Zuñiga MD [address] [place], [place] [id number] PCP - General 03/06/09 Pamela Briseno APRN.DOGMAN/WOMAN [address] [place] [address] Liaison Neurology 08/15/22 Roll Clamp Operator Relationship Specialty Start Date End Date Amy Zuñiga MD [address] [facility] [address] [place], [place] [id number] PCP - General 03/06/09 Pamela Briseno APRN.CNP [address] [place] [address] Liaison Neurology 08/15/22 Roll Clamp Operator Relationship Specialty Start Date End Date Amy Zuñiga MD [address] [facility] Amy Zuñiga MD [address] [place], [place] [id number] PCP - General 10/03/22 Team Status: Inactive Member Role Status Dates Christo Saab MD Primary Care Provider Active Roel Mireles MD Attending Provider Active Roll Clamp Operator Relationship Specialty Start Date End Date Amy Zuñiga MD [address] [facility] MD [place], [place] [id number] PCP - General 10/03/22 Team Status: Active Member Role Status Dates Christo Saab MD Primary Care Provider Active David Reis PA-C Emergency Provider Active Ashwini Clancy MD Admit Provider, Attending Provider Active Team Status: Inactive Member Role Status Dates Christo Saab MD Primary Care Provider Active David Reis PA-C Emergency Provider Active Ashwini Clancy MD Admit Provider, Attending Provider Active Team Status: Inactive Member Role Status Dates Christo Saab MD Primary Care Provider Active Start: July 05, 2023 End: July 05, 2023 Roel Mireles MD Attending Provider Active Start: July 05, 2023 End: July 05, 2023 Team Status: Inactive Member Role Status Dates Christo Saab MD Primary Care Provider Active Start: July 21, 2023 End: July 23, 2023 David Reis PA-C Emergency Provider Active Start: July 21, 2023 End: July 23, 2023 Ashwini Clancy MD Admit Provider, Atte parveening Provider Active Start: July 21, 2023 End: July 23, 2023 Team Status: Inactive Member Role Status Dates Christo Saab MD Primary Care Provider Active Start: August 31, 2023 End: August 31, 2023 Edel Cesar MD Attending Provider Active Start: August 31, 2023 End: August 31, 2023 Roll Clamp Operator Relationship Specialty Start Date End Date Amy Zuñiga MD [address] [place] [address] PCP - General 03/06/09 Pamela Briseno APRN.DOGMAN/WOMAN [address] [place] [address] [address] Liaison Neurology 08/15/22 Efren Carbajal DO [address] [place] [address] [address] Liaison Neurology 07/19/23 Roll Clamp Operator Relationship Specialty Start Date End Date Amy Zuñiga MD [address] [place] [address] PCP - General 03/06/09 Pamela Briseno APRN.DOGMAN/WOMAN [address] [place] [address] [address] Liaison Neurology 08/15/22 Efren Carbajal DO [address] [place] [address] [address] Liaison Neurology 07/19/23 Roll Clamp Operator Relationship Specialty Start Date End Date Amy Zuñiga MD [address] [place] [address] PCP - General 03/06/09 Pamela Briseno APRN.DOGMAN/WOMAN [address] [place], [place] [id number] Specialty Juvenile Court Liaison Neurology 08/15/22 Efren Carbajal DO [address] [place], [place] [id number] Specialty Juvenile Court Liaison Neurology 07/19/23 Roll Clamp Operator Relationship Specialty Start Date End Date Amy Zuñiga MD [address] [place] [address] PCP - General 03/06/09 Pamela Briseno APRN.DOGMAN/WOMAN [address] [place] [address] [address] Liaison Neurology 08/15/22 Efren Carbajal DO [address] [place] [address] [address] Liaison Neurology 07/19/23 Roll Clamp Operator Relationship Specialty Start Date End Date Amy Zuñiga MD [address] [place] [address] PCP - General 03/06/09 Pamela Briseno APRN.DOGMAN/WOMAN [address] [place], [place] [id number] Specialty Juvenile Court Liaison Neurology 08/15/22 Efren Carbajal DO [address] [place], [place] [id number] Specialty Juvenile Court Liaison Neurology 07/19/23 Goals (unrecognized section and content) Goals may be documented in a n alternate section FOR RECORDS PERTAINING TO PATIENTS WHO ARE OR HAVE BEEN ENROLLED IN A CHEMICAL DEPENDENCY/SUBSTANCEABUSE PROGRAM, SOME INFORMATION MAY BE OMITTED. This clinical summary was aggregated from multiple sources. Caution should be exercised in using it in the provision of clinical care. This summary normalizes information from multiple sources, and as a consequence, information in this document may materially change the coding, format and clinical context of patient data. In addition, data may be omitted in some cases. CLINICAL DECISIONS SHOULD BE BASED ON THE PRIMARY CLINICAL RECORDS. [facility] [email or web address] [facility]. provides no warranty or guarantee of the accuracy or completeness of information in this document.
--- NOTE | 2023-10-28 18:45 | ECG_ITS ---
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
[2023-10-28] MEDS: 0.9 % SODIUM CHLORIDE 1,000 ML 1000 ML IV (18:47)
[2023-10-28 18:58] LABS: Hematocrit 38.7 % (42.0-54.0); Hemoglobin 12.4 g/dL (14.0-18.0); Mean Corpuscular Hemoglobin 28.2 pg (25.9-34.0); Mean Platelet Volume 10.2 fL (9.5-13.5); Platelet Count 162 10^3/uL (150-450); Red Cell Distribution Width 15.9 % (11.0-15.0)
[2023-10-28 19:09] LABS: INR 1.27; Partial Thromboplastin Time 33.5 sec (22.3-36.2); Prothrombin Time 13.3 sec (9.0-11.6)
--- NOTE | 2023-10-28 19:10 | XR_ITS ---
The [address] [address] Patient Name: PORFIRIO GUSMAN MRN: [id number] date: 1940 Sex: M Assigned Patient Location: ED.MAIN Current Patient Location: ED.MAIN Accession/Order Number: [id number] Exam Date: 10/28/2023 19:20 Report Date: 10/28/2023 20:14 At the request of: VANCE REYNOSO Procedure: XR chest 1V EXAM: XR chest 1V CLINICAL INDICATION: weeakness TECHNIQUE: Portable frontal semi-erect view of the chest. COMPARISON: 07/14/2023 FINDINGS: Lines and tubes: Stable left chest wall cardiac device with intact leads. Lungs: Right hemidiaphragm elevation redemonstrated. Mild right basilar probable atelectasis, progressed. No convincing focal infiltrates. No pleural effusion or pneumothorax. Heart: Cardiac and mediastinal contours are unremarkable. No overt pulmonary vascular congestion. Osseous structures: No acute abnormalities. XR/XR chest 1V IMPRESSION: Mild right basilar atelectasis. Electronically authenticated by: JUVENTINO GE Date: 10/28/2023 20:14
[2023-10-28 19:11] LABS: Alanine Aminotransferase 9 U/L (16-63); Albumin Globulin Ratio 1.1; Albumin Level 3.7 g/dL (3.4-5.0); Alkaline Phosphatase 121 U/L (46-116); Anion Gap 12.8; Aspartate Amino Transferase 12 U/L (15-37); BUN Creatinine Ratio 25.4; Bilirubin Total 0.6 mg/dL (0.2-1.0); Calcium 8.9 mg/dL (8.5-10.1); Carbon Dioxide 28.9 mmol/L (21.0-32.0); Chloride 100 mmol/L (98-107); Estimated GFR (African America 41 (>=60); Estimated GFR (Non-African Ame 34 (>=60); Globulin 3.3 g/dL; Glucose 108 mg/dL (74-106); Potassium 4.7 mmol/L (3.5-5.1); Sodium 137 mmol/L (136-145)
[2023-10-28 19:16] LABS: Troponin I High Sensitivity 12.9 pg/mL (4.0-76.1)
--- NOTE | 2023-10-28 19:20 | ED_ITS ---
HPI HPI - General Adult General Chief complaint: Weakness Stated complaint: Stiffiness Time Seen by Provider: 10/28/23 18:33 Source: patient Mode of arrival: Wheelchair History of Present Illness HPI narrative: 83-year-old male was brought to the emergency room with chief complaint of weakness. Patient has a history of Parkinson's disease. He states he felt more stiff and weak around noon today. He denies any injury. He states he does walk around his home with a walker. He lives with a son. He states he just feels weak. He denies any fevers. Related Data Home Medications ?Medication ?Instructions ?Recorded ?Confirmed apixaban 5 mg tablet (Eliquis) 5 mg PO BID 10/28/23 10/28/23 atorvastatin 20 mg tablet 20 mg PO QPM 10/28/23 10/28/23 carbidopa 25 mg-levodopa 100 mg 1.5 tab PO QID 10/28/23 10/28/23 tablet carbidopa ER 50 mg-levodopa 200 mg 1 tab PO QID 10/28/23 10/28/23 tablet,extended release chlorhexidine gluconate 4 % 1 applic topical DAILY 10/28/23 10/28/23 topical liquid (Hibiclens) clonazepam 0.5 mg tablet 0.5 mg PO QPM 10/28/23 10/28/23 donepezil 10 mg tablet 10 mg PO DAILY 10/28/23 10/28/23 flecainide 50 mg tablet 50 mg PO BID 10/28/23 10/28/23 furosemide 40 mg tablet 40 mg PO DAILY 10/28/23 10/28/23 levothyroxine 100 mcg tablet 100 mcg PO DAILY 10/28/23 10/28/23 mupirocin 2 % topical ointment 1 applic topical BID 10/28/23 10/28/23 Previous Rx's ?Medication ?Instructions ?Recorded etodolac 400 mg tablet (Lodine) 400 mg PO Q12H PRN pain #20 tabs 03/09/23 Allergies Allergy/AdvReac Type Severity Reaction Status Date / Time bacitracin Allergy Intermediate Verified 03/09/23 10:45 [From Neosporin ([id number])] neomycin Allergy Intermediate Verified 03/09/23 10:45 [From Neosporin (biz-[id number])] polymyxin B Allergy Intermediate Verified 03/09/23 10:45 [From Neosporin (hfg-[id number])] Opioid HPI Opioid Management Most Recent Opioid Data: Last ED Pain Assessment 10/28/23 19:02 Review of Systems ROS Narrative All Systems are negative except as noted/marked.All systems reviewed and otherwise negative [facility] Social History Smoking status: Never smoker Exam Narrative Exam Narrative: Nurses note and vital signs reviewed and patient is not hypoxic. General: The patient appears well and in no apparent distress appears weak Skin: Warm, dry, no pallor noted. Head: Normocephalic, atraumatic Eye: Normal conjunctiva, no drainage, EOMI. PERRL Ears, Nose, Mouth, and Throat: oral mucosa is dry, Nares patent. Mouth without vesicles. Ear canals patent. Tm's without Erythema Cardiovascular: Regular Rate and Rhythm Respiratory: Patient is in no distress, no accessory muscle use, lungs are clear to auscultation, no wheezing, rales or rhonchi Back: non-tender, no CVA tenderness bilaterally to percussion. GI: Normal bowel sounds, no tenderness to palpation, no masses appreciated. No rebound, guarding, or rigidity noted. Musculoskeletal:chronic tremor to Upper and lower extremities, no other acute abnormality, Neurological: A&O , normal speech Psychiatric: Cooperative Constitutional Vital Signs, click to edit/add: Last Vital Signs Temp 97.4 F L 10/28/23 19:32 Pulse 80 10/28/23 19:32 Resp 20 10/28/23 19:32 BP 122/69 10/28/23 19:32 Pulse Ox 94 L 10/28/23 19:32 O2 Del Method Room Air 10/28/23 19:05 Course Vital Signs Vital signs: Vital Signs Temperature 98.3 F 10/28/23 18:25 Pulse Rate 72 10/28/23 18:25 Respiratory Rate 12 10/28/23 18:25 Blood Pressure 126/78 10/28/23 18:25 Pulse Oximetry 98 10/28/23 18:25 Oxygen Delivery Method Room Air 10/28/23 18:25 Temperature 97.4 F L 10/28/23 19:32 Pulse Rate 80 10/28/23 19:32 Respiratory Rate 20 10/28/23 19:32 Blood Pressure 122/69 10/28/23 19:32 Pulse Oximetry 94 L 10/28/23 19:32 Oxygen Delivery Method Room Air 10/28/23 19:05 Medical Decision Making MDM Narrative Medical decision making narrative: , 83-year-old male presents to the emergency room chief complaint of weakness. Patient has a history of Parkinson's disease. Coronary artery disease and hypothyroidism. Patient states he became suddenly weak while at home earlier today. Oral mucosa did appear dry. Upon arrival here to the emergency room IV was established patient was given a liter of fluids. Blood work was ordered including CBC BMP Trope and urinalysis. CBC shows elevated white blood cell count at 14 BNP is elevated at 48 creatinine 1.89. Patient had a history of elevated BUN and creatinine in the past 39 and 1.37 comparatively. BNP today is 1838. Urinalysis also obtained shows large amount of blood.X-rays also performed shows bibasilar on the right. Ended for observation for IV fluids hydration this evening. Family members and patient agree with plan of care. I spoke to Rosa Keys for admission. Medical Records Medical records reviewed: Yes I reviewed the patient's medical records Lab Data Lab results reviewed: Yes I reviewed the patient's lab results Labs: Lab Results 10/28/23 10/28/23 Range/Units 18:45 19:50 WBC 14.0 H (4.0-11.0) 10^3/uL RBC 4.40 L (4.70-6.10) 10^6/uL Hgb 12.4 L (14.0-18.0) g/dL Hct 38.7 L (42.0-54.0) % MCV 88.0 (80.0-94.0) fL MCH 28.2 (25.9-34.0) pg MCHC 32.0 (29.9-35.2) g/dL RDW 15.9 H (11.0-15.0) % Plt Count 162 (150-450) 10^3/uL MPV 10.2 (9.5-13.5) fL Seg Neuts % (Manual) 82.0 Band Neutrophils % 6.0 H (0-5) % Lymphocytes % (Manual) 2.0 L (20.5-60.0) % Atypical Lymphs % (Man) 1.0 % Monocytes % (Manual) 9.0 (1.7-12.0) % Eosinophils % (Manual) 0.0 L (0.9-7.0) % Basophils % (Manual) 0.0 L (0.2-2.0) % Neutrophils # (Manual) 11.48 H (1.4-6.5) 10^3/uL Band Neutrophils # 0.8 H (0.0-0.3) 10^3/uL Lymphocytes # (Manual) 0.28 L (1.20-3.80) 10^3/uL Abs Atypical Lymphs Man 0.14 Monocytes # (Manual) 1.26 H (0.30-0.80) 10^3/uL Eosinophils # (Manual) 0.00 (0.00-0.70) 10^3/uL Basophils # (Manual) 0.00 (0.00-0.10) 10^3/uL PT 13.3 H (9.0-11.6) sec INR 1.27 APTT 33.5 (22.3-36.2) sec Sodium 137 (136-145) mmol/L Potassium 4.7 (3.5-5.1) mmol/L Chloride 100 (98-107) mmol/L Carbon Dioxide 28.9 (21.0-32.0) mmol/L Anion Gap 12.8 BUN 48.0 H (7.0-18.0) mg/dL Creatinine 1.89 H (0.70-1.30) mg/dL Est GFR ( Amer) 41 L (>=60) Est GFR (Non-Af Amer) 34 L (>=60) BUN/Creatinine Ratio 25.4 Glucose 108 H (74-106) mg/dL Calcium 8.9 (8.5-10.1) mg/dL Total Bilirubin 0.6 (0.2-1.0) mg/dL AST 12 L (15-37) U/L ALT 9 L (16-63) U/L Alkaline Phosphatase 121 H (46-116) U/L Troponin I High Sens 12.9 (4.0-76.1) pg/mL NT-Pro-B Natriuret Pep 1838.0 H* (<=1800.0) pg/mL Total Protein 7.0 (6.4-8.2) g/dL Albumin 3.7 (3.4-5.0) g/dL Globulin 3.3 g/dL Albumin/Globulin Ratio 1.1 Urine Color Yellow (YELLOW) Urine Clarity Clear (CLEAR) Urine pH 6.0 (5.0-9.0) Ur Specific [place] 1.020 (1.005-1.025) Urine Protein Trace (NEG/TRACE) mg/dL Urine Glucose (UA) Negative (NEGATIVE) mg/dL Urine Ketones 15 A (NEGATIVE) mg/dL Urine Occult Blood Large A (NEGATIVE) Urine Nitrite Negative (NEGATIVE) Urine Bilirubin Negative (NEGATIVE) Urine Urobilinogen 0.2 (0.2-1.0) EU/dL Ur Leukocyte Esterase Negative (NEGATIVE) Urine RBC 10-20 A (0-2) #/HPF Urine WBC 0-2 A (NONE SEEN) #/HPF Ur Squamous Epith Cells None seen (NONE/RARE) #/LPF Ur Transition Epith Cell Rare A (NONE SEEN) #/LPF Urine Crystals None seen (None Seen) #/HPF Urine Bacteria None seen (NONE SEEN) #/HPF Urine Casts None seen (NONE SEEN) #/LPF Urine Mucus None seen (NONE SEEN) Ur Culture Indicated? No Imaging Data Chest x-ray: Radiologist's impression: ITS Impressions Chest X-Ray 10/28/23 19:10 IMPRESSION: Mild right basilar atelectasis. Electronically authenticated by: JUVENTINO GE Date: 10/28/2023 20:14 ECG Data Interpretation: 1832 Paced rhythm with a rate of 86 bpm OK interval 144 ms QRS duration 148 ms, EKG similar to previous EKG performed on 07/14/2003. Discharge Plan Discharge Chief Complaint: Weakness Clinical Impression: Acute renal insufficiency, Hematuria, microscopic, Dehydration Patient Disposition: Admitted as Observation Time of Disposition Decision: 20:14 Condition: Fair
[2023-10-28 19:27] LABS: Band Neutrophils Absolute 0.8 10^3/uL (0.0-0.3); Lymphocytes Absolute Manual 0.28 10^3/uL (1.20-3.80); Monocytes Absolute Manual 1.26 10^3/uL (0.30-0.80); Segmented Neut Absolute Manual 11.48 10^3/uL (1.4-6.5)
[2023-10-28 19:28] LABS: Atypical Lymphocytes Abs Man 0.14
[2023-10-28 19:57] LABS: Bilirubin Urine NEGATIVE (NEGATIVE); Blood Urine LARGE (NEGATIVE); Clarity Urine CLEAR (CLEAR); Color Urine YELLOW (YELLOW); Glucose Urine UA NEGATIVE (NEGATIVE); Ketones Urine 15 mg/dL (NEGATIVE); Leukocyte Esterase Urine NEGATIVE (NEGATIVE); Nitrite Urine NEGATIVE (NEGATIVE); Protein Urine TRACE mg/dL (NEG/TRACE); Urobilinogen Urine 0.2 EU/dL (0.2-1.0)
[2023-10-28 20:04] LABS: Bacteria Urine NONE SEEN #/HPF (NONE SEEN); Cast Seen? NONE SEEN #/LPF (NONE SEEN); Crystals Seen? None Seen #/HPF (None Seen); Mucus Urine NONE SEEN (NONE SEEN); Squamous Epithelial Cell Urine NONE SEEN #/LPF (NONE/RARE); Transitional Epi Cells Urine RARE #/LPF (NONE SEEN); Urine Culture Indicated NO; WBC Urine 0-2 #/HPF (NONE SEEN)
--- NOTE | 2023-10-28 20:25 | PC.NURSE ---
pts buttocks is red but not open
--- NOTE | 2023-10-28 20:36 | PC.NURSE ---
pt is going to room 201 on medsurg for dehydration and weakness pt is aware of poc
--- OUTSIDE RECORDS SUMMARY | 2023-10-28 20:51 | XMS_ITS | CCD ---
Author Organization [facility] Care Team Providers Care Alining Inspector Name Role Phone Cesar Laguna Unavailable Unavailable Unavailable Amy Zuñiga MD Primary Care Provider Finn RADIOACTIVITY TECHNICIAN.DIPLOMA MEDICAL ASSISTANT, Pamela Unavailable Amy Zuñiga Unavailable MD Amy Zuñiga Primary Care Provider DO Jordan Gallegos Admit Provider [phone] DO Jordan Gallegos Attending Provider NELA Fenton Other Provider Unavailable DO Sara Valdes Other Provider MD Courtney Fleming Other Provider MD Roel Mireles Other Provider MD Edel Cesar Other Provider MD Magdaleno Owusu Other Provider KEKE Hopkins Other Provider MD Nica García Other Provider MD Susan Shaw Other Provider MD Domenico Isidro Other Provider Elodia COMMISSIONER OF INTERNAL REVENUE- Marcia Sanchez Other Provider [phone] MD [...] Unavailable MD Amy Zuñiga Primary Care Provider [phone] DO Jordan Gallegos Admit Provider DO Jordan Gallegos Attending Provider NELA Fenton Other Provider Unavailable DO Sara Valdes Other Provider [phone] MD Courtney Fleming Other Provider MD Roel Mireles Other Provider MD Edel Cesar Other Provider MD Magdaleno Owusu Other Provider KEKE Hopkins Other Provider MD Nica García Other Provider MD Susan Shaw Other Provider MD Domenico Isidro Other Provider Elodia [facility] aMrcia Sanchez Other Provider MD Lisy Ugarte Other Provider Carolynn Jahaira Mosqueda Attending Provider MD Edel Cesar Attending Provider MD Amy Zuñiga Primary Care Provider MD Edel Cesar Referring Provider MD Roel Mireles Attending Provider MD Roel Mireles Attending Provider MD Christo Saab Primary Care Provider [phone] Finn RADIOACTIVITY TECHNICIAN.DIPLOMA MEDICAL ASSISTANT, Pamela Unavailable [phone] AMY ZUÑIGA Primary Care Unavailable EFREN CARBAJAL [...] le Traboulssi, Dr. Hollingsworth Attending Unavaila ble Henley, Dr. Guerrero Primary Care Unavailable Traboulssi, Dr. [...] Zuñiga, Dr. Amy Ortega Primary Care Unavailab Chirsto Jackson Primary Care Physician Amy Zuñiga MD Primary Care Provider [phone] MD Christo Saab Primary Care Provider [phone] MD Roel Mireles Attending Provider DENISHA Reis Emergency Provider [phone] MD Ashiwni Clancy Admit Provider MD Ashwini Clancy Attending Provider TORRIE BARAJAS Attending Unavailable MD Edel Cesar [...] Primary Care Unavailable EFREN CARBAJAL Attending Unavailable ZUIÑGA, AMY EDELLA Primary Care Unavailable GOSTEFREN PIKE [...] Saab Attending Unavailable Christo Saab Attending Unavailable Chirsto Saab Attending Unavailable Christo Saab Attending Unavailable Christo Saab Primary Care Unavailable Roel Mireles Admitting Unavail able Roel [...] Clancy Admitting Unavailable Ashwini Clancy Attending Unavailable Role Mireles Attending Unavail able Roel Mireles Admitting Unavail able Chritso Saab Primary Care Unavailable Allergies Allergy Classification Reported Allergen(s) Allergy Type Date of Onset Reaction(s) Facility (9 sources) Bacitracin / Neomycin / Polymyxin B; Translations: [Neosporin OINT] Drug Allergy [facility] Work Phone: (20 sources) bacitracin / neomycin / polymyxin b; Translations: [NEOMYCIN-BACIT RACIN-POLYMYXIN ] Drug Allergy 9 Unknown (qualifier value) [facility] (11 sources) Bacitracin; Translations: [bacitracin] Drug Allergy 8 Unknown Reaction, Unknown [facility] (10 sources) Haloperidol; Translations: [haloperidol] Drug Allergy 3 Unknown Reaction, Unknown [facility] (9 sources) Neomycin; Translations: [neomycin] Drug Allergy 3 Blister [facility] (10 sources) polymyxin B; Translations: [polymyxin B] Allergy to substance 3 Blister, Unknown [facility] (3 sources) Bacitracin / Neomycin / Polymyxin B; Translations: [Neosporin] Drug Allergy [address] [facility] (1 source) Haloperidol Drug Allergy [address] [facility] (3 sources) Bacitracin / Polymyxin B; Translations: [BACITRACIN ZINC-POLYMYXIN B] Drug Allergy 3 Other [facility] (3 sources) Colloidal oatmeal; Translations: [COLLOIDAL OATMEAL] Drug Allergy 3 [facility] Work Phone: Medications Current Medications Medication [...] and 6 PM Take 1 tablet by [facility] four times daily. Take 1 tablet of [...] and 6 PM Take 1 tablet by [facility] three times a day AND 2 tablets once daily. [Bedtime]. Take 1 tablet by [facility] three times a day AND 2 tablets [...] 21, 2023 12:13pm take 1 capsule by [facility] once daily Cholecalciferol, Vitamin D3, 25 mcg (1,000 unit) cap Indications: Postsurgical hypothyroidism , Unspecified vitamin D deficiency Take 1,000 Units by mouth once daily. 0 Active take 1 tablet by [facility] once daily Vitamin D3 50 MCG (1999 UT) Oral Tablet Take 1 tablet daily Quantity: 0 Refills: 0 Ordered: 08-Oct-2021 DO Active take 1 capsule by [facility] once daily Cholecalciferol 50 MCG (2000 UT) 1 capsule Orally Once a day Active Comment on above: Take 1,000 Units by mouth once daily. entacapone 200 mg oral tablet (20 sources) Mquufsle-J-Vkzsdmpn ansferase Inhibitor Start: 07-28-2023 take 1 dose [...] by mouth twice daily at dinner Vitamins A,C,L-Xyho-Zlviik (Preservision Areds) 2,148 mcg-113 mg-45 mg-17.4mg Tablet [...] DO Active vit A/vit C/vit E/zinc/copper (VITAMINS A,C,G-KMQJ-TSGDCD ORAL) (1 source) End: 07-05-2023 vit A/vit C/vit E/zinc/copper (VITAMINS A,C,U-ZUGP-CGFKOT ORAL) Take by mouth. 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; Translations: [Coronary [...] 07-04-2023 07-04-2023 Episodic Other aftercare (1 source) intermediate (current) use of aspirin; Translations: [HAT FINISHER CURRENT USE OF ASPIRIN] Onset: 11-28-2022 Episodic Other aftercare (1 source) Other usp (current) drug therapy; Translations: [OTH RESIDENTIAL CURRENT DRUG THERAPY] Onset: 11-28-2022 Episodic Other aftercare (3 sources) intermediate (current) use of anticoagulants; Translations: [HAT FINISHER CURRNT USE ANTICOAGULANTS] Onset: 09-29-2022 Episodic Other [...] n 10-05-2023 Plan of Care - PT/OT/Speech [id number] [facility] ECG 12 lead ECGon 09-26-2023 ECG 12 lead ECG [facility] Main [place] [id number] Electrocardiograph Report Signed Patient: Magdaleno Valderrama MR#: [id number] 181 : 1940 Acct:[id number] Age/Sex: 83 / M ADM Date: 09/26/23 Loc: Room: Type: [facility] Attending Dr: Edel Cesar MD Ordering Provider: [...] change was found Confirmed by LONNIE MEJIA [facility], COURTNEY ([id number]) on 09/26/2023 3:36:06 PM Referred By: Edel Cesar Electronically Signed By:COURTNEY FLEMING MD FACC Transcribed By: MUS Signed By Courtney Fleming MD, FACC 09/26/23 1536 Normal [facility] ECG post procedureon 024 ECG post procedure [facility] Main [address] [address] Electrocardiograph Report Signed Patient: Magdaleno Valderrama MR#: [id number] 181 : 1940 Acct:[id number] Age/Sex: 83 / M ADM Date: 09/26/23 Loc: Room: Type: [facility] Attending Dr: Edel Cesar MD Ordering Provider: [...] Courtney Fleming MD, FACC 09/26/23 1537 Normal [facility] Electrolyteson 09-26-2023 Anion gap [Moles/Vol] 12.5 mmol/L Normal 6.0-15.0 [facility] Comment on above: Result Comment: PERF ORMED BY: [facility] [address] [place] [id number] PATHOLOGIST MANAGER VOICE ANGELIC RANDOLPH M.D. Performed By: #### L YTES ####[facility] [id number] [place] [address] [facility] Chloride [Moles/Vol] 103 mmol/L Normal 98-107 [facility] Comment on above: Performed By: #### L YTES ####[facility] [address] [place] [address] [facility] CO2 [Moles/Vol] 26.6 mmol/L Normal 21.0-31.[address] [facility] Comment on above: Performed By: #### L YTES ####[facility] Qlx[address] [place] [address] [facility] Potassium [Moles/Vol] 4.1 mmol/L Normal 3.5-5.1 [facility] Comment on above: Performed By: #### L YTES ####[facility] [place] [address] [facility] Sodium [Moles/Vol] 138 mmol/L Normal 136-145 [facility] Comment on above: Performed By: #### L YTES ####[facility] [place] [address] [facility] Patient Letter FTon 2023 Patient Letter [facility] (Inserted Image. Anna ble to display) September 18, 2023 MAGDALENO VALDERRAMA [id number] [id number] : 1940 To Whom It May Concern: Patient , Magdaleno Valderrama is currently under my care and I feel patient is physically able to return to Parkinson's fitness class. If you have any questions, please don't hesitate to call the office. Christ[place] [address] [facility] Formson 09-11-2023 Forms [id number]#1.00TIFF [facility] CNPNon 09-08-2023 CNPN Telephone (NREUS2) -- LAVELLEMAGDALENO Yusuf ([id number]) 1940 M Date Time Provider Department 09/08/23 [...] of Date: 09/08/2023 Noted Allergy Reaction NEOSPORIN ([id number]* Date Reviewed: 10/20/2022 Reviewed by: Ulysses Richard [...] 08/25/2022 Encounter Status:Closed by MAURICE CANELA on 09/08/23 Normal [facility] Consultation Noteon 09-06-19 Consultation Note [id number] Normal [facility] Basic Metabolic Panelon Anion gap [Moles/Vol] 8.5 mmol/L Normal 6.0-15.0 [facility] Comment on above: Performed By: #### T SH3, BMP #### [facility] [address] Calcium [Mass/Vol] 9.3 mg/dL Normal 8.6-10.3 [facility] Comment on above: Performed By: #### T SH3, BMP #### [facility] [address] [place] [id number] [place] Chloride [Moles/Vol] 104 mmol/L Normal 98-107 [facility] Comment on above: Performed By: #### T SH3, BMP #### [facility] [address] [place] [id number] [place] CO2 [Moles/Vol] 31.2 mmol/L High 21.0-31.[address] [facility] Comment on above: Performed By: #### T SH3, BMP #### [facility] [address] Creatinine [Mass/Vol] 1.25 mg/dL Normal 0.70-1.30 [facility] Comment on above: Performed By: #### T SH3, BMP #### [place] [address] [place] GFR/1.73 sq M.predicted MDRD (S/P/Bld) [Vol rate/Area] 56.430 mL/min/{1.73_m2} Normal [facility] Comment on above: Performed By: #### T SH3, BMP #### [address] Glucose [Mass/Vol] 86 mg/dL Normal 70-100 [facility] Comment on above: Result Comment: [place] Glucose Reference Range is dependent on time and content of last meal. Glucose of more than 200 mg/dL in a nonstressed, ambulatory subject supports the diagnosis of Diabetes Mellitus. ADA recommended reference range Performed By: #### T SH3, BMP #### [address] Potassium [Moles/Vol] 4.7 mmol/L Normal 3.5-5.1 [facility] Comment on above: Performed By: #### T SH3, BMP #### [address] Sodium [Moles/Vol] 139 mmol/L Normal 136-145 [facility] Comment on above: Performed By: #### T SH3, BMP #### [place] [address] [place] Urea nitrogen [Mass/Vol] 35 mg/dL High 7-25 [facility] Comment on above: Performed By: #### T SH3, BMP #### [place] [address] [place] Calcium [Mass/volume] in Ser um or PlasmaOrdered By: Edel Cesar on 08-31-2023 Calcium [Mass/Vol] 9.3 mg/dL 8.6-10.3 [facility] Carbon dioxide, total [Moles /volume] in Serum or PlasmaOrdered By: Edel Cesar on 08-31-2023 CO2 [Moles/Vol] 31.2 mmol/L 21.0-31.[address] [facility] Chloride [Moles/volume] in S siddharth or PlasmaOrdered By: Edel Cesar on 08-31-2023 Chloride [Moles/Vol] 104 mmol/L 98-107 [facility] Creatinine [Mass/volume] in Serum or PlasmaOrdered By: Edel Cesar on 08-31-2023 Creatinine [Mass/Vol] 1.25 mg/dL 0.70-1.30 [facility] Glucose [Mass/volume] in Ser um or PlasmaOrdered By: Edel Cesar on 08-31-2023 Glucose [Mass/Vol] 86 mg/dL 70-100 [facility] Comment on above: ADA recommended refe rence rangeRandom Glucose Reference Range is dependent on time and content of last meal. Glucose of more than 200 mg/dL in a nonstressed, ambulatory subject supports the diagnosis of Diabetes Mellitus. No Panel InformationOrdered By: Edel Cesar on 08-31-2023 Estimated GFR (CKD-EPI) 56.430 mL/Min [facility] Creatinine Clearance (Chem N/A [facility] Plan of Care - PT/OT/Speecho n 08-31-2023 Plan of Care - PT/OT/Speech [id number]#1.00TIFF Normal [facility] Plan of Care - PT/OT/Speech [id number]#1.00TIFF Normal [facility] Potassium [Moles/volume] in Serum or PlasmaOrdered By: Edel Cesar on 08-31-2023 Potassium [Moles/Vol] 4.7 mmol/L 3.5-5.1 [facility] Serum or plasma anion gap de terminationOrdered By: Edel Cesar on 08-31-2023 Anion gap [Moles/Vol] 8.5 mmol/L 6.0-15.0 [facility] Sodium [Moles/volume] in Ser um or PlasmaOrdered By: Edel Cesar on 08-31-2023 Sodium [Moles/Vol] 139 mmol/L 136-145 [facility] Thyroid Stimulating Hormoneo n 08-31-2023 TSH Qn 3.87 m[IU]/L Normal 0.45-5.33 [facility] Comment on above: Result Comment: PERF ORMED BY: [place] [address] PATHOLOGIST MANAGER VOICE ANGELIC RANDOLPH M.D. Performed By: #### T SH3, BMP #### [address] Thyrotropin [Units/volume] i n Serum or PlasmaOrdered By: Edel Cesar on 08-31-2023 TSH Qn 3.87 m[IU]/L 0.45-5.33 [facility] Urea nitrogen [Mass/volume] in Serum or PlasmaOrdered By: Edel Cesar on 08-31-2023 Urea nitrogen [Mass/Vol] 35 mg/dL 7-25 [facility] Ambulatory Visit Summaryon 0 08-23-2023 Ambulatory Visit [...] EDT With: Reyna MEJIA, Christo Alas Where: [facility] [place] Normal [facility] Family Medicine Office/Clini c Noteon 08-23-2023 [...] quantified; pain pre (more content not included)... [facility] Comment on above: Result Comment: Elec tronically Signed By: JACKLYN KELLY CNP\.br\Date and Time Signed: 08/23/23 11:18 EST Physician Orderon 08-08-2023 Physician Order [id number]#1.00TIFF can this order be re-faxed as the whole order was not received, thank you # [phone] [facility] Comment on above: Result Comment: Elec tronically Signed By: Anuradha Perera\.br\Date and Time Signed: 08/08/23 09:02 EST Ambulatory Visit Summaryon 0 08-07-2023 Ambulatory Visit Summary MAGDALENO VALDERRAMA :1940 Visit Date:08/07/2023 Ambulatory Visit Instructions Your Diagnosis Parkinson's disease Hypothyroidism Mild pulmonary hypertension 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 5. 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 Normal [facility] Comment on above: Result Comment: Elec [...] numbers. This can be done either in [place] (U.S[place] or metric measurements. Note that charts and online BMI calculators are available to help you find your BMI quickly and easily without having to do these calculations yourself. To calculate your BMI in [place] ([place] measurements: 1. Measure your weight in [...] for Disease Control and Prevention: www.cdc.gov ? [place] Heart Association: www.heart.org ? National Heart, Lung, and Blood Metter: www.nhlbi.nih.gov Summary ? Body mass index (BMI) is a number that is calculated from a person's weight and height. ? BMI may help estimate how much of a person's weight is composed of fat. BMI can help identify those who may be at higher risk for certain medical problems. ? BMI can be measured using [place] measurements or metric measurements. ? BMI charts are used to identify whether you are underweight, normal weight, overweight, or obese. This information is not intended to replace advice given to you by your health care provider. Make sure you discuss any questions you have with your health care provider. Document Revised: 04/08/2020 Document Reviewed: 02/14/2020 [employer] Patient Education ? 2022 [employer]. [facility] Pre-Visit Planningon 024 Pre-Visit Planning - From: Kacie Baez To: Reyna MEJIA, Christo Alas; Sent: 08/04/2023 16:04:25 EST Subject: Pre-Visit Planning Due Date/Time: 08/04/2023 16:04:00 EST Caller Name: MAGDALENO VALDERRAMA; Caller Number: Jahaira , M , B Sc Dr. Saab. During a pre-visit planning chart review, I noted the following documentation in the medical record: Current Problem List: Parkinson's disease and Cognitive dysfunction. Current Medication List: carbidopa-levodopa, donepezil, and rasagiline. [employer]305[facility] [employer]play Facesheet: 11/15/2022 Office Visit Note: Assessment/Plan- 5. Parkinson's disease (G20: Parkinson's disease) The patient is seeing a specialist, Dr. Montilla out of [place]. The patient has carbidopa levodopa for this. [...] feel free to contact me at extension [phone]. Thank you! Kacie Baez LPN From: Reyna MEJIA, Christo Alas To: Kacie Baez; Sent: 08/07/2023 11:49:22 EST Subject: RE: Pre-Visit Planning Caller Name: MAGDALENO VALDERRAMA; Caller Number: , M , B Dementia associated Parkinson's Normal 272 [facility] Basic Metabolic Panelon 12-2 Anion gap [Moles/Vol] 9.4 mmol/L Normal 6.0-15.0 [facility] Comment on above: Performed By: #### B MP #### [address] Calcium [Mass/Vol] 8.8 mg/dL Normal 8.6-10.3 [facility] Comment on above: Performed By: #### B MP #### [facility] [address] [place] [address] [place] Chloride [Moles/Vol] 103 mmol/L Normal 98-107 [facility] Comment on above: Performed By: #### B MP #### [facility] [address] [place] [id number] [place] CO2 [Moles/Vol] 27.8 mmol/L Normal 21.0-31.[address] [facility] Comment on above: Performed By: #### B MP #### [facility] [address] [place] [address] [place] Creatinine [Mass/Vol] 1.04 mg/dL Normal 0.70-1.30 [facility] Comment on above: Performed By: #### B MP #### [facility] [address] [place] [address] [place] Creatinine Clr Calc Pharmacy 44.81 Normal [facility] Comment on above: Result Comment: PERF ORMED BY: [place] [address] PATHOLOGIST MANAGER VOICE ANGELIC RANDOLPH M.D. Performed By: #### B MP #### [facility] [address] [place] [address] [place] GFR/1.73 sq M.predicted MDRD (S/P/Bld) [Vol rate/Area] mL/min/{1.73_m2} Normal [facility] Comment on above: Performed By: #### B MP #### [address] Glucose [Mass/Vol] 84 mg/dL Normal 70-100 [facility] Comment on above: Result Comment: [facility] Glucose Reference Range is dependent on time and content of last meal. Glucose of more than 200 mg/dL in a nonstressed, ambulatory subject supports the diagnosis of Diabetes Mellitus. ADA recommended reference range Performed By: #### B MP #### [address] Potassium [Moles/Vol] 4.2 mmol/L Normal 3.5-5.1 [facility] Comment on above: Performed By: #### B MP #### [place] [address] [place] Sodium [Moles/Vol] 136 mmol/L Normal 136-145 [facility] Comment on above: Performed By: #### B MP #### [place] [address] [place] Urea nitrogen [Mass/Vol] 30 mg/dL High 7-25 [facility] Comment on above: Performed By: #### B MP #### [place] [address] [place] Calcium [Mass/volume] in Ser um or PlasmaOrdered By: Ashwini Clancy on 07-22-2023 Calcium [Mass/Vol] 8.8 mg/dL 8.6-10.3 [facility] Carbon dioxide, total [Moles /volume] in Serum or PlasmaOrdered By: Ashwini Clancy on 07-22-2023 CO2 [Moles/Vol] 27.8 mmol/L 21.0-31.[address] [facility] Chloride [Moles/volume] in S siddharth or PlasmaOrdered By: Ashwini Clancy on 07-22-2023 Chloride [Moles/Vol] 103 mmol/L 98-107 [facility] Creatinine [Mass/volume] in Serum or PlasmaOrdered By: Ashwini Clancy on 07-22-2023 Creatinine [Mass/Vol] 1.04 mg/dL 0.70-1.30 [facility] ECG 12 lead ECGon 07-22-2023 ECG 12 lead ECG [facility] [place] [address] Electrocardiograph Report Signed Patient: Magdaleno Valderrama MR#: [id number] 181 : 1940 Acct:[id number] Age/Sex: 83 / M ADM Date: 07/21/23 Loc: Room: [address] [place] [address] Type: ADM IN Attending Dr: Ashwini Clancy [...] By Roel Mireles MD 07/22/23 1525 Normal [facility] Glucose [Mass/volume] in Ser um or PlasmaOrdered By: Ashwini Clancy on 07-22-2023 Glucose [Mass/Vol] 84 mg/dL 70-100 [facility] Comment on above: ADA recommended refe rence rangeRandom Glucose Reference Range is dependent on time and content of last meal. Glucose of more than 200 mg/dL in a nonstressed, ambulatory subject supports the diagnosis of Diabetes Mellitus. No Panel InformationOrdered By: Ashwini Clancy on 07-22-2023 Estimated GFR (CKD-EPI) > 60.0 mL/Min [facility] Creatinine Clearance (Chem 44.81 [facility] Potassium [Moles/volume] in Serum or PlasmaOrdered By: Ashwini Clancy on 07-22-2023 Potassium [Moles/Vol] 4.2 mmol/L 3.5-5.1 [facility] Serum or plasma anion gap de terminationOrdered By: Ashwini Clancy on 07-22-2023 Anion gap [Moles/Vol] 9.4 mmol/L 6.0-15.0 [facility] Sodium [Moles/volume] in Ser um or PlasmaOrdered By: Ashwini Clancy on 07-22-2023 Sodium [Moles/Vol] 136 mmol/L 136-145 [facility] Urea nitrogen [Mass/volume] in Serum or PlasmaOrdered By: Ashwini Clancy on 07-22-2023 Urea nitrogen [Mass/Vol] 30 mg/dL 7-25 [facility] Activated partial thrombopla stin time (aPTT) in platelet poor plasma by coagulation aOrdered By: David Reis on 07-21-2023 aPTT Coag (PPP) [Time] 42.0 s 25.1-36.5 [facility] Comment on above: A hematocrit value g reater than 55% may lead to inaccurate results in coagulation testing. Patients having hematocrit values >55% require a special collection tube for coagulation studies. Please contact the laboratory at [phone] for redraw instructions. Alanine aminotransferase [En zymatic activity/volume] in Serum or PlasmaOrdered By: David Reis on 07-21-2023 ALT [Catalytic activity/Vol] 5 U/L 7-52 [facility] Albumin [Mass/volume] in Ser um or Plasma by Bromocresol green (BCG) dye binding methoOrdered By: David Reis on 07-21-2023 Albumin BCG dye [Mass/Vol] 4.3 g/dL 3.5-5.7 [facility] Alkaline phosphatase [Enzyma tic activity/volume] in Serum or PlasmaOrdered By: David Reis on 07-21-2023 ALP [Catalytic activity/Vol] 74 U/L 34-104 [facility] Aspartate aminotransferase [ Enzymatic activity/volume] in Serum or PlasmaOrdered By: David Reis on 07-21-2023 AST [Catalytic activity/Vol] 18 U/L 13-39 [facility] Automated erythrocytes count in urine sediment (number/area)Ordered By: David Reis on 07-21-2023 RBC Auto (Urine sed) [#/Area] 50-100 [HPF] 0-4 [facility] Automated leukocytes count i n urine sediment (number/area)Ordered By: David Reis on 07-21-2023 WBC Auto (Urine sed) [#/Area] 0-1 [HPF] 0-4 [facility] B-Type Natriuretic Peptideon 07-21-2023 Natriuretic peptide B (Bld) [Mass/Vol] 248.0 pg/mL High 5-100 [facility] Comment on above: Result Comment: PERF ORMED BY: [facility] [address] [place] [address] PATHOLOGIST MANAGER VOICE ANGELIC RANDOLPH M.D. Performed By: #### M G, LACTIC, PT, HS TROP, CMP, CK, BNP, PTT, CBC ####[facility] [id number] [place] [address] [facility] Basophils Auto (Bld) [#/Vol] Ordered By: David Reis on 07-21-2023 Basophils (Bld) [#/Vol] 0.0 10*3/uL 0.0-0.2 [facility] Basophils/100 WBC Auto (Bld) Ordered By: David Reis on 07-21-2023 Basophils/100 WBC (Bld) 0.5 % . [facility] Bilirubin Test strip Ql (U)O rdered By: David Reis on 07-21-2023 Bilirubin Ql (U) Negative Negative [facility] Bilirubin.total [Mass/volume ] in Serum or PlasmaOrdered By: David Reis on 07-21-2023 Bilirubin [Mass/Vol] 0.8 mg/dL 0.3-1.0 [facility] Calcium [Mass/volume] in Ser um or PlasmaOrdered By: David Reis on 07-21-2023 Calcium [Mass/Vol] 10.1 mg/dL 8.6-10.3 [facility] Carbon dioxide, total [Moles /volume] in Serum or PlasmaOrdered By: David Reis on 07-21-2023 CO2 [Moles/Vol] 31.7 mmol/L 21.0-31.[address] [facility] Chloride [Moles/volume] in S siddharth or PlasmaOrdered By: David Reis on 07-21-2023 Chloride [Moles/Vol] 99 mmol/L 98-107 [facility] Color Auto (U)Ordered By: Zay Reis on 07-21-2023 Color (U) Yellow Yellow [facility] Complete Blood Count Auto Di ffon 07-21-2023 Basophils (Bld) [#/Vol] 0.0 10*3/uL Normal 0.0-0.2 [facility] Comment on above: Result Comment: PERF ORMED BY: [facility] [address] [place] [address] PATHOLOGIST MANAGER VOICE ANGELIC RANDOLPH M.D. Performed By: #### M G, LACTIC, PT, HS TROP, CMP, CK, BNP, PTT, CBC ####[facility] [place] [address] [facility] Basophils/100 WBC (Bld) 0.5 % Normal . [facility] Comment on above: Performed By: #### M G, LACTIC, PT, HS TROP, CMP, CK, BNP, PTT, CBC ####[facility] [id number] [place] [id number] [facility] Eosinophils (Bld) [#/Vol] 0.0 10*3/uL Normal 0.0-0.45 [facility] Comment on above: Performed By: #### M G, LACTIC, PT, HS TROP, CMP, CK, BNP, PTT, CBC ####[address] Eosinophils/100 WBC (Bld) 0.6 % Normal . [facility] Comment on above: Performed By: #### M G, LACTIC, PT, HS TROP, CMP, CK, BNP, PTT, CBC ####[address] Erythrocyte distribution width (RBC) [Ratio] 14.9 % High 12.0-14.8 [facility] Comment on above: Performed By: #### M G, LACTIC, PT, HS TROP, CMP, CK, BNP, PTT, CBC ####[address] Hematocrit (Bld) [Volume fraction] 40.9 % Normal 38.8-50.0 [facility] Comment on above: Performed By: #### M G, LACTIC, PT, HS TROP, CMP, CK, BNP, PTT, CBC ####[address] Hemoglobin (Bld) [Mass/Vol] 13.6 g/dL Normal 13.0-17.0 [facility] Comment on above: Performed By: #### M G, LACTIC, PT, HS TROP, CMP, CK, BNP, PTT, CBC ####[address] Lymphocytes (Bld) [#/Vol] 1.1 10*3/uL Normal 1.00-4.8 [facility] Comment on above: Performed By: #### M G, LACTIC, PT, HS TROP, CMP, CK, BNP, PTT, CBC ####[address] Lymphocytes/100 WBC (Bld) 14.3 % Normal . [facility] Comment on above: Performed By: #### M G, LACTIC, PT, HS TROP, CMP, CK, BNP, PTT, CBC ####[address] MCH (RBC) [Entitic mass] 30.4 pg Normal 27.5-35.2 [facility] Comment on above: Performed By: #### M G, LACTIC, PT, HS TROP, CMP, CK, BNP, PTT, CBC ####[address] MCV (RBC) [Entitic vol] 91.8 fL Normal 83.5-101 [facility] Comment on above: Performed By: #### M G, LACTIC, PT, HS TROP, CMP, CK, BNP, PTT, CBC ####[address] Mean Corpuscular HGB Conc 33.2 g/dL Normal 32.5-35.6 [facility] Comment on above: Performed By: #### M G, LACTIC, PT, HS TROP, CMP, CK, BNP, PTT, CBC ####[address] Monocytes (Bld) [#/Vol] 0.7 10*3/uL Normal 0.0-0.8 [facility] Comment on above: Performed By: #### M G, LACTIC, PT, HS TROP, CMP, CK, BNP, PTT, CBC ####[address] Monocytes/100 WBC (Bld) 15.92 % Normal 0.00-20.00 [facility] Comment on above: Performed By: #### M G, LACTIC, PT, HS TROP, CMP, CK, BNP, PTT, CBC ####[address] Monocytes/100 WBC (Bld) 9.5 % Normal . [facility] Comment on above: Performed By: #### M G, LACTIC, PT, HS TROP, CMP, CK, BNP, PTT, CBC ####[address] Neutrophils (Bld) [#/Vol] 5.8 10*3/uL Normal 1.8-7.7 [facility] Comment on above: Performed By: #### M G, LACTIC, PT, HS TROP, CMP, CK, BNP, PTT, CBC ####[address] Neutrophils/100 WBC (Bld) 75.1 % Normal . [facility] Comment on above: Performed By: #### M G, LACTIC, PT, HS TROP, CMP, CK, BNP, PTT, CBC ####[address] NRBC% 0.1 /100{WBC} Normal 0-0.5 [facility] Comment on above: Performed By: #### M G, LACTIC, PT, HS TROP, CMP, CK, BNP, PTT, CBC ####[address] Platelet mean volume (Bld) [Entitic vol] 8.2 fL Normal 6.6-10.1 [facility] Comment on above: Performed By: #### M G, LACTIC, PT, HS TROP, CMP, CK, BNP, PTT, CBC ####[address] Platelets (Bld) [#/Vol] 192 10*3/uL Normal 150-450 [facility] Comment on above: Performed By: #### M G, LACTIC, PT, HS TROP, CMP, CK, BNP, PTT, CBC ####[address] RBC (Bld) [#/Vol] 4.46 10*6/uL Normal 3.90-5.60 [facility] Comment on above: Performed By: #### M G, LACTIC, PT, HS TROP, CMP, CK, BNP, PTT, CBC ####[address] WBC (Bld) [#/Vol] 7.7 10*3/uL Normal 4.1-10.5 [facility] Comment on above: Performed By: #### M G, LACTIC, PT, HS TROP, CMP, CK, BNP, PTT, CBC ####[address] Comprehensive Metabolic Pane eric 07-21-2023 Albumin [Mass/Vol] 4.3 g/dL Normal 3.5-5.7 [facility] Comment on above: Performed By: #### M G, LACTIC, PT, HS TROP, CMP, CK, BNP, PTT, CBC ####[address] Albumin/Globulin [Mass ratio] 1.7 {ratio} Normal [facility] Comment on above: Performed By: #### M G, LACTIC, PT, HS TROP, CMP, CK, BNP, PTT, CBC ####[place] [id number] [facility] ALP [Catalytic activity/Vol] 74 U/L Normal 34-104 [facility] Comment on above: Performed By: #### M G, LACTIC, PT, HS TROP, CMP, CK, BNP, PTT, CBC ####[place] [id number] [facility] ALT [Catalytic activity/Vol] 5 U/L Low 7-52 [facility] Comment on above: Performed By: #### M G, LACTIC, PT, HS TROP, CMP, CK, BNP, PTT, CBC ####[place] [id number] [facility] Anion gap [Moles/Vol] 8.6 mmol/L Normal 6.0-15.0 [facility] Comment on above: Performed By: #### M G, LACTIC, PT, HS TROP, CMP, CK, BNP, PTT, CBC ####[place] [id number] [facility] AST [Catalytic activity/Vol] 18 U/L Normal 13-39 [facility] Comment on above: Performed By: #### M G, LACTIC, PT, HS TROP, CMP, CK, BNP, PTT, CBC ####[place] [id number] [facility] Bilirubin [Mass/Vol] 0.8 mg/dL Normal 0.3-1.0 [facility] Comment on above: Performed By: #### M G, LACTIC, PT, HS TROP, CMP, CK, BNP, PTT, CBC ####[address] Calcium [Mass/Vol] 10.1 mg/dL Normal 8.6-10.3 [facility] Comment on above: Performed By: #### M G, LACTIC, PT, HS TROP, CMP, CK, BNP, PTT, CBC ####[address] Chloride [Moles/Vol] 99 mmol/L Normal 98-107 [facility] Comment on above: Performed By: #### M G, LACTIC, PT, HS TROP, CMP, CK, BNP, PTT, CBC ####[address] CO2 [Moles/Vol] 31.7 mmol/L High 21.0-31.[address] [facility] Comment on above: Performed By: #### M G, LACTIC, PT, HS TROP, CMP, CK, BNP, PTT, CBC ####[place] [id number] [facility] Creatinine [Mass/Vol] 1.42 mg/dL High 0.70-1.30 [facility] Comment on above: Performed By: #### M G, LACTIC, PT, HS TROP, CMP, CK, BNP, PTT, CBC ####[place] [id number] [facility] Creatinine Clr Calc Pharmacy 31.23 [facility] Comment on above: Performed By: #### M G, LACTIC, PT, HS TROP, CMP, CK, BNP, PTT, CBC ####[place] [id number] [facility] GFR/1.73 sq M.predicted MDRD (S/P/Bld) [Vol rate/Area] 48.423 mL/min/{1.73_m2} [facility] Comment on above: Performed By: #### M G, LACTIC, PT, HS TROP, CMP, CK, BNP, PTT, CBC ####[address] Globulin (S) [Mass/Vol] 2.6 g/dL [facility] Comment on above: Performed By: #### M G, LACTIC, PT, HS TROP, CMP, CK, BNP, PTT, CBC ####[address] Glucose [Mass/Vol] 97 mg/dL Normal 70-100 [facility] Comment on above: Result Comment: [facility] Glucose Reference Range is dependent on time and content of last meal. Glucose of more than 200 mg/dL in a nonstressed, ambulatory subject supports the diagnosis of Diabetes Mellitus. ADA recommended reference range Performed By: #### M G, LACTIC, PT, HS TROP, CMP, CK, BNP, PTT, CBC ####[address] Potassium [Moles/Vol] 4.3 mmol/L Normal 3.5-5.1 [facility] Comment on above: Performed By: #### M G, LACTIC, PT, HS TROP, CMP, CK, BNP, PTT, CBC ####[place] [id number] [facility] Protein [Mass/Vol] 6.9 g/dL Normal 6.4-8.9 [facility] Comment on above: Performed By: #### M G, LACTIC, PT, HS TROP, CMP, CK, BNP, PTT, CBC ####[place] [id number] [facility] Sodium [Moles/Vol] 135 mmol/L Low 136-145 [facility] Comment on above: Performed By: #### M G, LACTIC, PT, HS TROP, CMP, CK, BNP, PTT, CBC ####[place] [id number] [facility] Urea nitrogen [Mass/Vol] 38 mg/dL High 7-25 [facility] Comment on above: Performed By: #### M G, LACTIC, PT, HS TROP, CMP, CK, BNP, PTT, CBC ####[facility] [id number] [place] [address] [place] Creatine Kinaseon 07-21-2023 CK [Catalytic activity/Vol] 27 U/L Low [facility] Comment on above: Performed By: #### M G, LACTIC, PT, HS TROP, CMP, CK, BNP, PTT, CBC ####[facility] [id number] Creatine kinase [Enzymatic a ctivity/volume] in Serum or PlasmaOrdered By: David Reis on 07-21-2023 CK [Catalytic activity/Vol] 27 U/L [facility] Creatinine [Mass/volume] in Serum or PlasmaOrdered By: David Reis on 07-21-2023 Creatinine [Mass/Vol] 1.42 mg/dL 0.70-1.30 [facility] Dipstick and Microscopicon 1 09-21-2022 Appearance (U) Clear Normal Clear [facility] Comment on above: Order Comment: Name Collection Type:: Clean-Voided Midstream Performed By: #### A DDONUAPLUS #### [facility] [address] [place] [address] [place] Bacteria,Urine None Seen Normal None Seen [facility] Comment on above: Order Comment: Name Collection Type:: Clean-Voided Midstream Performed By: #### A DDONUAPLUS #### [facility] [address] [place] [address] [place] Bilirubin,Urine Negative Normal Negative [facility] Comment on above: Order Comment: Name Collection Type:: Clean-Voided Midstream Performed By: #### A DDONUAPLUS #### [facility] [address] [place] [address] [place] Color (U) Yellow Normal Yellow [facility] Comment on above: Order Comment: Name Collection Type:: Clean-Voided Midstream Performed By: #### A DDONUAPLUS #### [facility] [address] [place] [address] [place] Glucose Ql (U) Normal Normal Normal [facility] Comment on above: Order Comment: Name Collection Type:: Clean-Voided Midstream Performed By: #### A DDONUAPLUS #### [place] [address] [place] Hyaline Casts,Urine 0-8 Normal 0-8 [facility] Comment on above: Order Comment: Name Collection Type:: Clean-Voided Midstream Result Comment: PERF ORMED BY: [place] [address] PATHOLOGIST MANAGER VOICE ANGELIC RANDOLPH M.D. Performed By: #### A DDONUAPLUS #### [facility] [address] [place] [address] Ketones Ql (U) Negative Normal Negative [facility] Comment on above: Order Comment: Name Collection Type:: Clean-Voided Midstream Performed By: #### A DDONUAPLUS #### [address] Leukocyte esterase Test strip Ql (U) Negative Normal Negative [facility] Comment on above: Order Comment: Name Collection Type:: Clean-Voided Midstream Performed By: #### A DDONUAPLUS #### [place] [address] [place] Nitrite,Urine Negative Normal Negative [facility] Comment on above: Order Comment: Name Collection Type:: Clean-Voided Midstream Performed By: #### A DDONUAPLUS #### [facility] [address] [place] [address] [place] Occult Blood,Urine 2+ High Negative [facility] Comment on above: Order Comment: Name Collection Type:: Clean-Voided Midstream Result Comment: PERF ORMED BY: [place] [address] PATHOLOGIST MANAGER VOICE ANGELIC RANDOLPH M.D. Performed By: #### A DDONUAPLUS #### [facility] [address] [place] [address] pH (U) 5.5 [pH] Normal 5.0-9.0 [facility] Comment on above: Order Comment: Name Collection Type:: Clean-Voided Midstream Performed By: #### A DDONUAPLUS #### [place] [address] [place] Protein,Urine Negative Normal Negative [facility] Comment on above: Order Comment: Name Collection Type:: Clean-Voided Midstream Performed By: #### A DDONUAPLUS #### [address] RBC,Urine 50-100 High 0-4 [facility] Comment on above: Order Comment: Name Collection Type:: Clean-Voided Midstream Performed By: #### A DDONUAPLUS #### [address] Specificy [place],Urine 1.011 Normal 1.001-1.03 0 [facility] Comment on above: Order Comment: Name Collection Type:: Clean-Voided Midstream Performed By: #### A DDONUAPLUS #### [address] Squamous Epithelial Cell,Urine None Seen Normal 0-2 [facility] Comment on above: Order Comment: Name Collection Type:: Clean-Voided Midstream Performed By: #### A DDONUAPLUS #### [address] Urobilinogen,Urine Normal Normal Normal [facility] Comment on above: Order Comment: Name Collection Type:: Clean-Voided Midstream Performed By: #### A DDONUAPLUS #### [address] WBC LM.HPF (Urine sed) [#/Area] 0 /[HPF] Normal 0-4 [facility] Comment on above: Order Comment: Name Collection Type:: Clean-Voided Midstream Performed By: #### A DDONUAPLUS #### [address] ECG 12 lead ECGon 07-21-2023 ECG 12 lead ECG [facility] [place] [address] [place] [address] Electrocardiograph Report Signed Patient: Magdaleno Valderrama MR#: [id number] 181 : 1940 Acct:[id number] Age/Sex: 83 / M ADM Date: 07/21/23 Loc: Room: [address] [place] [address] Type: ADM IN Attending Dr: Ashwini Clancy [...] By Terri Ayers MD 07/21/23 1509 Normal [facility] Eosinophils Auto (Bld) [#/Vo l]Ordered By: David Reis on 07-21-2023 Eosinophils (Bld) [#/Vol] 0.0 10*3/uL 0.0-0.45 [facility] Eosinophils/100 WBC Auto (Bl d)Ordered By: David Reis on 07-21-2023 Eosinophils/100 WBC (Bld) 0.6 % . [facility] Erythrocyte distribution wid th Auto (RBC) [Ratio]Ordered By: David Reis on 07-21-2023 Erythrocyte distribution width (RBC) [Ratio] 14.9 % 12.0-14.8 [facility] Globulin Calc (S) [Mass/Vol] Ordered By: David Reis on 07-21-2023 Globulin (S) [Mass/Vol] 2.6 g/dL [facility] Glucose [Mass/volume] in Ser um or PlasmaOrdered By: David Reis on 07-21-2023 Glucose [Mass/Vol] 97 mg/dL 70-100 [facility] Comment on above: ADA recommended refe rence rangeRandom Glucose Reference Range is dependent on time and content of last meal. Glucose of more than 200 mg/dL in a nonstressed, ambulatory subject supports the diagnosis of Diabetes Mellitus. Hematocrit Auto (Bld) [Volum e fraction]Ordered By: David Reis on 07-21-2023 Hematocrit (Bld) [Volume fraction] 40.9 % 38.8-50.0 [facility] Hemoglobin [Mass/volume] in BloodOrdered By: David Reis on 07-21-2023 Hemoglobin (Bld) [Mass/Vol] 13.6 g/dL 13.0-17.0 [facility] INR in Platelet poor plasma by Coagulation assayOrdered By: David Reis on 07-21-2023 INR Coag (PPP) [Relative time] 2.2 {INR} [facility] Comment on above: INR Therapeutic Rang e [...] on 07-21-2023 Ketones (U) [Mass/Vol] Negative Negative [facility] Laboratory - UrinalysisOrder ed By: David Reis on 07-21-2023 Hyaline casts LM Ql (Urine sed) 0-8 [LPF] 0-8 [facility] Lactate [Moles/volume] in Se rum or PlasmaOrdered By: David Reis on 07-21-2023 Lactate [Moles/Vol] 1.0 mmol/L 0.5-2.2 [facility] Lactic Acidon 07-21-2023 Lactate [Moles/Vol] 1.0 mmol/L Normal 0.5-2.2 [facility] Comment on above: Result Comment: PERF ORMED BY: [facility] [address] [place] [address] PATHOLOGIST MANAGER VOICE ANGELIC RANDOLPH M.D. Performed By: #### M G, LACTIC, PT, HS TROP, CMP, CK, BNP, PTT, CBC ####[facility] [id number] [place] [address] [facility] Leukocytes [#/volume] correc parag for nucleated erythrocytes in Blood by Automated counOrdered By: David Reis on 07-21-2023 WBC corrected for nucl RBC Auto (Bld) [#/Vol] 7.7 10*3/uL 4.1-10.5 [facility] Lymphocytes Auto (Bld) [#/Vo l]Ordered By: David Reis on 07-21-2023 Lymphocytes (Bld) [#/Vol] 1.1 10*3/uL 1.00-4.8 [facility] Lymphocytes/100 WBC Auto (Bl d)Ordered By: David Reis on 07-21-2023 Lymphocytes/100 WBC (Bld) 14.3 % . [facility] MCH Auto (RBC) [Entitic mass ]Ordered By: David Reis on 07-21-2023 MCH (RBC) [Entitic mass] 30.4 pg 27.5-35.2 [facility] MCHC Auto (RBC) [Mass/Vol]Or dered By: David Reis on 07-21-2023 MCHC (RBC) [Mass/Vol] 33.2 g/dL 32.5-35.6 [facility] MCV Auto (RBC) [Entitic vol] Ordered By: David Reis on 07-21-2023 MCV (RBC) [Entitic vol] 91.8 fL 83.5-101 [facility] Magnesiumon 07-21-2023 Magnesium [Mass/Vol] 2.5 mg/dL Normal 1.9-2.7 [facility] Comment on above: Result Comment: PERF ORMED BY: [facility] [address] [place] [address] PATHOLOGIST MANAGER VOICE ANGELIC RANDOLPH M.D. Performed By: #### M G, LACTIC, PT, HS TROP, CMP, CK, BNP, PTT, CBC ####[facility] [id number] [place] [address] [facility] Magnesium [Mass/volume] in S siddharth or PlasmaOrdered By: David Reis on 07-21-2023 Magnesium [Mass/Vol] 2.5 mg/dL 1.9-2.7 [facility] Monocyte distribution width [Entitic volume] in Blood by AutomatedOrdered By: David Reis on 07-21-2023 Monocyte distribution width Auto (Bld) [Entitic vol] 15.92 % 0.00-20.00 [facility] Monocytes Auto (Bld) [#/Vol] Ordered By: David Reis on 07-21-2023 Monocytes (Bld) [#/Vol] 0.7 10*3/uL 0.0-0.8 [facility] Monocytes/100 WBC Auto (Bld) Ordered By: David Reis on 07-21-2023 Monocytes/100 WBC (Bld) 9.5 % . [facility] Natriuretic peptide B [Mass/ Vol]Ordered By: David Reis on 07-21-2023 Natriuretic peptide B (Bld) [Mass/Vol] 248.0 pg/mL 5-100 [facility] Neutrophils Auto (Bld) [#/Vo l]Ordered By: David Reis on 07-21-2023 Neutrophils (Bld) [#/Vol] 5.8 10*3/uL 1.8-7.7 [facility] Neutrophils/100 WBC Auto (Bl d)Ordered By: David Reis on 07-21-2023 Neutrophils/100 WBC (Bld) 75.1 % . [facility] Nitrite Test strip Ql (U)Ord ered By: David Reis on 07-21-2023 Nitrite Ql (U) Negative Negative [facility] No Panel InformationOrdered By: David Reis on 07-21-2023 Estimated GFR (CKD-EPI) 48.423 mL/Min [facility] Creatinine Clearance (Chem 31.23 [facility] Nucleated erythrocytes [Pres ence] in Blood by Automated countOrdered By: David Reis on 07-21-2023 Nucleated RBC Auto Ql (Bld) 0.1 /100{WBC} 0-0.5 [facility] Partial Thromboplastin Timeo n 07-21-2023 aPTT Coag (Bld) [Time] 42.0 s High 25.1-36.5 [facility] Comment on above: Result Comment: A he matocrit value greater than 55% may lead to inaccurate results in coagulation testing. Patients having hematocrit values >55% require a special collection tube for coagulation studies. Please contact the laboratory at [phone] for redraw instructions. PERFORMED BY: [facility] [address] [place] [id number] PATHOLOGIST MANAGER VOICE ANGELIC RANDOLPH M.D. Performed By: #### M G, LACTIC, PT, HS TROP, CMP, CK, BNP, PTT, CBC ####[facility] [id number] [place] [id number] [facility] Platelet mean volume Auto (B ld) [Entitic vol]Ordered By: David Reis on 07-21-2023 Platelet mean volume (Bld) [Entitic vol] 8.2 fL 6.6-10.1 [facility] Platelets Auto (Bld) [#/Vol] Ordered By: David Reis on 07-21-2023 Platelets (Bld) [#/Vol] 192 10*3/uL 150-450 [facility] Potassium [Moles/volume] in Serum or PlasmaOrdered By: David Reis on 07-21-2023 Potassium [Moles/Vol] 4.3 mmol/L 3.5-5.1 [facility] Protein Auto test strip (U) [Mass/Vol]Ordered By: David Reis on 07-21-2023 Protein (U) [Mass/Vol] Negative Negative [facility] Protein [Mass/volume] in Ser um or PlasmaOrdered By: David Reis on 07-21-2023 Protein [Mass/Vol] 6.9 g/dL 6.4-8.9 [facility] Prothrombin Time INRon 07-21 INR Coag (PPP) [Relative time] 2.2 {INR} Normal [facility] Comment on above: Result Comment: INR Therapeutic [...] HS TROP, CMP, CK, BNP, PTT, CBC ####[facility] [place] [id number] [facility] PT Coag (PPP) [Time] 24.1 s High 9.0-12.9 [facility] Comment on above: Result Comment: A he matocrit value greater than 55% may lead to inaccurate results in coagulation testing. Patients having hematocrit values >55% require a special collection tube for coagulation studies. Please contact the laboratory at [phone] for redraw instructions. Performed By: #### M G, LACTIC, PT, HS TROP, CMP, CK, BNP, PTT, CBC ####[facility] [place] [id number] [facility] Prothrombin time (PT)Ordered By: David Reis on 07-21-2023 PT Coag (PPP) [Time] 24.1 s 9.0-12.9 [facility] Comment on above: A hematocrit value g reater than 55% may lead to inaccurate results in coagulation testing. Patients having hematocrit values >55% require a special collection tube for coagulation studies. Please contact the laboratory at [phone] for redraw instructions. RBC Auto (Bld) [#/Vol]Ordere d By: David Reis on 07-21-2023 RBC (Bld) [#/Vol] 4.46 10*6/uL 3.90-5.60 [facility] Serum or plasma albumin/glob ulin mass ratioOrdered By: David Reis on 07-21-2023 Albumin/Globulin [Mass ratio] 1.7 {ratio} [facility] Serum or plasma anion gap de terminationOrdered By: David Reis on 07-21-2023 Anion gap [Moles/Vol] 8.6 mmol/L 6.0-15.0 [facility] Sodium [Moles/volume] in Ser um or PlasmaOrdered By: David Reis on 07-21-2023 Sodium [Moles/Vol] 135 mmol/L 136-145 [facility] Specific gravity Auto test s trip (U) [Rel density]Ordered By: David Reis on 07-21-2023 Specific gravity (U) [Rel density] 1.011 1.001-1.03 0 [facility] Squamous epithelial cells de tection in urine sediment by light microscopyOrdered By: David Reis on 07-21-2023 Epithelial cells.squamous LM Ql (Urine sed) None seen [HPF] 0-2 [facility] Troponin I High Sensitivityo n 07-21-2023 Troponin I High Sensitivity 9.3 pg/mL Normal 0.0-20.0 [facility] Comment on above: Result Comment: PERF ORMED BY: [facility] [address] [place] [address] PATHOLOGIST MANAGER VOICE ANGELIC RANDOLPH M.D. Performed By: #### M G, LACTIC, PT, HS TROP, CMP, CK, BNP, PTT, CBC ####[facility] [id number] Troponin I.cardiac [Mass/vol ume] in Serum or Plasma by Detection limit <= 0.01 ng/Ordered By: David Reis on 07-21-2023 Troponin I.cardiac DL <= 0.01 ng/mL [Mass/Vol] 9.3 pg/mL 0.0-20.0 [facility] Urea nitrogen [Mass/volume] in Serum or PlasmaOrdered By: David Reis on 07-21-2023 Urea nitrogen [Mass/Vol] 38 mg/dL 7-25 [facility] Urine bacteria detection by automated methodOrdered By: David Reis on 07-21-2023 Bacteria Auto Ql (U) None seen None Seen [facility] Urine clarity by refractomet ry automatedOrdered By: David Reis on 07-21-2023 Clarity Refractometry automated (U) Clear Clear [facility] Urine glucose measurement by automated test strip (mass/volume)Ordered By: David Reis on 07-21-2023 Glucose Auto test strip (U) [Mass/Vol] Normal mg/dL Normal [facility] Urine hemoglobin detection b y automated test stripOrdered By: David Reis on 07-21-2023 Hemoglobin Auto test strip Ql (U) 2+ Negative [facility] Urine leukocyte esterase det ection by automated test stripOrdered By: David Reis on 07-21-2023 Leukocyte esterase Auto test strip Ql (U) Negative Negative [facility] Urobilinogen Auto test strip (U) [Mass/Vol]Ordered By: David Reis on 07-21-2023 Urobilinogen (U) [Mass/Vol] Normal mg/dL Normal [facility] WBC Auto (Bld) [#/Vol]Ordere d By: David Reis on 07-21-2023 WBC (Bld) [#/Vol] 7.7 10*3/uL 4.1-10.5 [facility] XR chest 2V*on 07-21-2023 XR chest 2V* [facility] [place] [address] XRay Report Signed Patient: Magdaleno Valderrama MR#: [id number] : 1940 Acct:[id number] Age/Sex: 83 / M ADM Date: 07/21/23 [...] Parminder Rodriguez M.D.07/21/2023 1:15 PM Dictation Location: [place] [address] Transcribed By: [facility] 07/21/23 1314 Dictated By: Parminder Rodriguez DO 07/21/23 1314 Signed By: 07/21/23 1315 Normal [facility] pH Auto test strip (U)Ordere d By: David Reis on 07-21-2023 pH (U) 5.5 [pH] 5.0-9.0 [facility] ED Note-Physicianon 07-19-20 ED Note-Physician [phone] [id number]#1.00TIFF Normal [facility] ED Note-Physician [id number]#1.00TIFF Normal [facility] Family Medicine Office/Clini c Noteon 07-19-2023 Family Medicine Office/Clinic Note HPI Staff Magdaleno is an 83 year old male presenting for ER follow up attempted a pulse ox 3 times, cannot get one ER followup: Hospital: [place] Visit date: 07/14 Symptoms the patient presented with: chest was bleeding from excision of a lesion at [facility] Current concerns: here to get the bandage off, whole bandage is caked in dried blood Son says he's in a fib and his current addictions recovery specialist is out of the office and has [...] the anticoagulation. Recommend follow up with the addictions recovery specialist. Gave precautions of when to go to [...] with dermatology. 3. 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 Substitutions may have occurred due to the inherent limitations of voice recognition and artificial intelligence software. ATTESTATION: Documentation services were performed after patient or guardian consented to allow Mati Shelton to record this visit. RASHAUN retail account specialist and provider reviewed before signing. 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 Normal [facility] Comment on above: Result Comment: Elec [...] signals of the heart. ? An ambulatory personnel monitor to record your heart's activity for a [...] ? Trouble breathing. (more content not included)... [facility] [id number]#1.00TIFF [facility] Sharon 07-17-2023 DAVIDN Telephone (NREUS2) -- MAGDALENO VALDERRAMA ([id number]) 1940 Date Time Provider Department 07/17/23 EFREN [...] stop this medication? Number to return call [phone] Okay to leave a message? Yes Efren Carbajal, 07/17/2023 2:53 PM Signed That is fine - the wearing-off will continue Efren Carbajal, July 17, 2023 2:53 PM Maurice Canela RN 07/17/2023 3:07 PM Signed Cristian (son) was notified and informed it is OK for Magdaleno to stop Inbrija. Allergies As of Date: 07/17/2023 Noted Allergy Reaction NEOSPORIN (JGNTYEMB-RIDJOXFCEB-AU* Date Reviewed: 10/20/2022 Reviewed by: Ulysses Richard [...] Encounter Status:Closed by MAURICE CANELA on 07/17/23 [facility] Consultation Noteon 07-10-20 Consultation Note [id number]#1.00TIFF [facility] ECG 12 Leadon 07-05-2023 [facility] Work Phone: Baseline rhythm like ly A-fib with paced rhythm [facility] Work Phone: Ambulatory Visit Summaryon 1 08-21-2022 [...] AM EST With: Christo Saab MD Where: [facility] Normal [facility] Ambulatory Visit Summary MAGDALENO VALDERRAMA :1940 [...] AM EST With: Christo Saab MD Where: [facility] [place] Normal [facility] CNCOon 06-21-2023 CNCO Letter Text Normal [facility] Medicine Office/Clini c Noteon 06-21-2023 Family [...] mass and lump, trunk) pt will call medical office worker in [place] to schedule biopsy concerned this may be cancerous. will send antibiotics for infection. Ordered: cephalexin, 500 mg = 1 cap(s), Oral, q12hr, # 20 cap(s), Refills(s) 0, [id number], 172.2, cm, 06/21/23 14:45:00 EST, Height/Length Dosing, 64, kg, 06/21/23 14:45:00 EST, Weight Dosing 2. Skin infection (L08.9: Local infection of the skin and subcutaneous tissue, unspecified) will treat with antibiotics Ordered: cephalexin, 500 mg = 1 cap(s), Oral, q12hr, # 20 cap(s), Refills(s) 0, Pharmacy: [facility] #[id number], 172.2, cm, 06/21/23 14:45:00 EST, Height/Length Dosing, 64, kg, 06/21/23 14:45:00 EST, Weight Dosing 3. BMI 21.0-21.9, adult (Z68.21: Body mass index [BMI] 21.0-21.9, adult) bmi education complete Ordered: cephalexin, 500 mg = 1 cap(s), Oral, q12hr, # 20 cap(s), Refills(s) 0, Pharmacy: [facility]/pharmacy #[id number], 172.2, cm, 06/21/23 14:45:00 EST, Height/Length Dosing, 64, kg, 06/21/23 14:45:00 EST, Weight Dosing 4. 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 Normal [facility] Comment on above: Result Comment: Elec [...] does not have therapy sessions. The patient?s core fitter reports that his energy levels have significantly decreased. He has experienced instability and has fallen once in the speech therapist early intervention. They were informed that an increase in the Dopamine dosage is not possible due to its maximum limit. He acknowledges the need to schedule his appointments later in the day. His routine for the past few months involves waking up at 6:00 AM and staying awake until 9:00 AM, with therapy sessions typically at 10:00 AM. The core fitter mentions that although he goes to bed [...] with voice recognition artificial intelligence software, specifically Et[employer], [employer] and or Masterbranch. Substitutions may have occurred due to the inherent limitations of voice recognition and artificial intelligence software. Documentation services were performed after patient or guardian consented to allow [employer] to record this visit. RASHAUN retail account specialist and provider reviewed before signing. 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 Normal [facility] Comment on above: Result Comment: Elec tronically Signed By: Christo Saab MD\.br\Date and Time Signed: 06/01/23 10:07 EDT\.br\Electronically Co-Signed By: Marcela Guillen.br\Date and Time Co-Signed: 05/30/23 18:30 EDT Retail - Clinical Noteon Retail - Clinical Note [id number]#1.00TIFF [facility] Retail - Clinical Note [id number]#1.00TIFF [facility] Retail - Clinical Note [id number]#1.00TIFF [facility] Consent for Flu Vaccineon Consent for Flu Vaccine [id number]#1.00TIFF [facility] Ambulatory Visit Summaryon 1 Ambulatory Visit [...] Once a day (at bedtime) Pickup at [facility]/pharmacy #[id number] Unchanged apixaban (Eliquis 5 mg oral [...] physician if questions or concerns Pharmacy Information [facility]/pharmacy #[id number]: [address], [place] [phone] Medications and Immunizations Administered Given influenza virus vaccine, inactivated HIGH DOSE preservative-free quadrivalent intramuscular susp, 0.7 mL, IntraMuscular. For: Hypothyroidism, BINA (obstructive sleep apnea), Primary insomnia, Abdominal aortic atherosclerosis, BMI 21.0-21.9, adult influenza virus vaccine, inactivated, IntraMuscular Allergies Neosporin (Unknown) Problems Ongoing - Any problem that you are currently receiving treatment for. 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 Normal [facility] Auto Diffon 05-30-2023 Basophils/100 WBC (Bld) 0.3 % Normal 0.0-2.0 [facility] Comment on above: Order Comment: Order Added by Discern Expert. Performed By: #### 2 384451, 81293552, 4685242, 9237102, 58748331 ####[facility] [address] [place] [address] Basophils/Leukocytes Auto (Bld) [Pure # fraction] 0.0 E9/L Normal 0.0-0.2 [facility] Comment on above: Order Comment: Order Added by Mj Expert. Performed By: #### 2 423452, 85304722, 3393756, 7641312, 81762696 ####[facility] [address] [place] [address] Eosinophils/100 WBC (Bld) 1.6 % Normal 0.0-8.0 [facility] Comment on above: Order Comment: Order Added by Discern Expert. Performed By: #### 2 172148, 69127830, 9310346, 1938700, 49164766 ####[facility] [address] [place] [address] Eosinophils/Leukocytes Auto (Bld) [Pure # fraction] 0.1 E9/L Normal 0.0-0.5 [facility] Comment on above: Order Comment: Order Added by Discern Expert. Performed By: #### 2 181392, 36091966, 8503016, 2653491, 74637488 ####[facility] [address] [place] [address] Lymphocytes/100 WBC (Bld) 21.8 % Normal 14.0-50.0 [facility] Comment on above: Order Comment: Order Added by Discern Expert. Performed By: #### 2 445342, 12306418, 5914816, 8680186, 63530662 ####[facility] [address] [place] [address] Lymphocytes/Leukocytes Auto (Bld) [Pure # fraction] 1.7 E9/L Normal 1.0-4.0 [facility] Comment on above: Order Comment: Order Added by Mj Expert. Performed By: #### 2 844389, 38481014, 3177470, 8315551, 18410294 ####[address] [address] Monocytes/100 WBC (Bld) 10.9 % Normal 4.0-14.0 [facility] Comment on above: Order Comment: Order Added by Mj Expert. Performed By: #### 2 997044, 14666519, 8911669, 6221048, 24882335 ####[address] [place] [address] Monocytes/Leukocytes Auto (Bld) [Pure # fraction] 0.9 E9/L Normal 0.2-1.0 [facility] Comment on above: Order Comment: Order Added by Mj Expert. Performed By: #### 2 814732, 71652968, 6001945, 5853632, 06876621 ####[address] [address] Neutrophils/100 WBC (Bld) 65.4 % Normal 36.0-75.0 [facility] Comment on above: Order Comment: Order Added by Mj Expert. Performed By: #### 2 378414, 71846935, 7786972, 2111534, 66363031 ####[facility] [address] [place] [address] Neutrophils/Leukocytes Auto (Bld) [Pure # fraction] 5.2 E9/L Normal 2.0-7.5 [facility] Comment on above: Order Comment: Order Added by Discern Expert. Performed By: #### 2 482856, 84176137, 8286390, 4343759, 22376178 ####[address] [place] [address] CBC w/ Auto Diffon 3 Erythrocyte distribution width (RBC) [Ratio] 14.7 % High 10.9-14.2 [facility] Comment on above: Performed By: #### 2 080707, 67658318, 4418565, 4609814, 03995193 ####[address] [place] [address] Hematocrit (Bld) [Volume fraction] 41.6 % Normal 37.7-49.0 [facility] Comment on above: Performed By: #### 2 487547, 48025332, 2293562, 6179202, 46959607 ####[address] [place] [address] Hemoglobin (Bld) [Mass/Vol] 13.7 g/dL Normal 13.5-17.5 [facility] Comment on above: Performed By: #### 2 344690, 10000416, 9337367, 0194163, 89700586 ####[facility] [address] [place] [address] MCH (RBC) [Entitic mass] 30.4 pg Normal 27.0-34.0 [facility] Comment on above: Performed By: #### 2 740549, 62572285, 2798071, 4869007, 57900546 ####[address] [place] [address] MCHC (RBC) [Mass/Vol] 33.0 g/dL Normal 31.4-36.0 [facility] Comment on above: Performed By: #### 2 667762, 57395980, 5541049, 9398384, 58372086 ####[address] [place] [address] MCV (RBC) [Entitic vol] 92.0 fL Normal 80.0-100.0 [facility] Comment on above: Performed By: #### 2 049269, 32275852, 6587443, 9334050, 25468357 ####[address] [address] Platelet mean volume (Bld) [Entitic vol] 8.8 fL Normal 6.4-10.8 [facility] Comment on above: Performed By: #### 2 842311, 78965380, 3901818, 7842641, 07311481 ####[address] [address] Platelets (Bld) [#/Vol] 178.0 E9/L Normal 150.0-500. 0 [facility] Comment on above: Performed By: #### 2 285765, 37113746, 1042845, 9956669, 65359376 ####[address] [address] RBC (Bld) [#/Vol] 4.5 E12/L Normal 4.3-5.9 [facility] Comment on above: Performed By: #### 2 660568, 91976195, 6168498, 7895120, 09810216 ####[address] [place] [address] WBC corrected for nucl RBC Auto (Bld) [#/Vol] 8.0 E9/L Normal 4.0-11.0 [facility] Comment on above: Performed By: #### 2 526358, 82647789, 6025939, 4855356, 17172889 ####[address] [place] [address] CHEMISTRYOrdered By: SYSTEM SYSTEM on 05-30-2023 Albumin [...] 50 mL/min/1.73 m2 Low >=59mL/min /1.73 m2 [facility] Comment on above: Interpretive Data: [...] 05-30-2023 Albumin [Mass/Vol] 4.3 g/dL Normal 3.3-5.0 [facility] Comment on above: Performed By: #### 2 292515, 84838630, 6823607, 3693383, 18742400 ####[facility] [address] [place] [address] Albumin/Globulin (S) [Mass conc ratio] 1.6 Normal 1.1-2.2 [facility] Comment on above: Performed By: #### 2 750704, 38385935, 7326660, 7415255, 34871008 ####[facility] [address] [place] [address] ALP [Catalytic activity/Vol] 80 Int._Unit/L Normal 21-98 [facility] Comment on above: Performed By: #### 2 663339, 66310882, 8097086, 1877322, 81079904 ####[facility] [address] [place] [address] ALT No additional P-5'-P [Catalytic activity/Vol] 6 Int._Unit/L Normal 6-46 [facility] Comment on above: Performed By: #### 2 100840, 70221386, 2221431, 5612954, 73884691 ####[facility] [address] [place] [address] Anion gap [Moles/Vol] 9 mmol/L Normal 6-16 [facility] Comment on above: Performed By: #### 2 149865, 66684712, 9898928, 3800815, 01855876 ####[facility] [address] [place] [address] AST [Catalytic activity/Vol] 22 Int._Unit/L Normal 5-43 [facility] Comment on above: Performed By: #### 2 955559, 44122597, 2960929, 0507332, 25712569 ####[facility] [address] [place] [address] Bilirubin [Mass/Vol] 0.3 mg/dL Normal 0.0-1.1 [facility] Comment on above: Performed By: #### 2 955753, 83652207, 7518481, 3105441, 18974332 ####[facility] [address] [place] [address] Calcium [Mass/Vol] 9.4 mg/dL Normal 8.9-11.1 [facility] Comment on above: Performed By: #### 2 975783, 07891919, 2182109, 1306087, 66283192 ####[facility] [address] [place] [address] Chloride [Moles/Vol] 102 mmol/L Normal 101-111 [facility] Comment on above: Performed By: #### 2 614998, 95864337, 7611429, 4822986, 93115189 ####[facility] [address] [place] [address] CO2 [Moles/Vol] 27 mmol/L Normal 21-31 [facility] Comment on above: Performed By: #### 2 373010, 50886998, 0541327, 2903337, 73163189 ####[facility] [address] [place] [address] Creatinine [Mass/Vol] 1.4 mg/dL High 0.5-1.3 [facility] Comment on above: Performed By: #### 2 376838, 23880928, 1869929, 0034025, 78189886 ####[facility] [address] [place] [address] Globulin (S) [Mass/Vol] 2.6 g/dL Normal 1.4-4.0 [facility] Comment on above: Performed By: #### 2 184503, 95566972, 1691232, 6889305, 97269436 ####[facility] [address] [place] [address] Glucose [Mass/Vol] 99 mg/dL Normal 55-199 [facility] Comment on above: Result Comment: If t his glucose result represents a fasting glucose, interpretation should refer to the following reference range: 55-99 mg/dL Performed By: #### 2 777978, 42462914, 8069150, 8726467, 66055751 ####[facility] [address] [place] [address] Potassium [Moles/Vol] 4.4 mmol/L Normal 3.5-5.3 [facility] Comment on above: Performed By: #### 2 382516, 64801183, 7375196, 0042701, 21306277 ####[facility] [address] [place] [address] Protein [Mass/Vol] 6.9 g/dL Normal 6.0-7.8 [facility] Comment on above: Performed By: #### 2 403421, 69543183, 1764018, 1094074, 63355480 ####[facility] [address] [place] [address] Sodium [Moles/Vol] 134 mmol/L Low 135-145 [facility] Comment on above: Performed By: #### 2 078521, 37858742, 5467188, 0959837, 89371353 ####[facility] [address] [place] [address] Urea nitrogen [Mass/Vol] 32 mg/dL High 5-21 [facility] Comment on above: Performed By: #### 2 178874, 41063799, 2249495, 6658222, 12461462 ####[facility] [address] [place] [address] Urea nitrogen/Creatinine [Mass ratio] 23 No Units High 10-20 [facility] Comment on above: Performed By: #### 2 289077, 24817413, 4979365, 8616920, 15471741 ####[facility] [address] [place] [address] HEMATOLOGYOrdered By: SYSTEM SYSTEM on 05-30-2023 Basophils/100 [...] FT HemeAutoSS Physician Orderon 05-30-2023 Physician Order [id number]#1.00TIFF Normal [facility] Pre-Visit Planningon 023 Pre-Visit Planning - From: Kacie Baez To: Reyna MEJIA, Christo Alas; Sent: 05/29/2023 09:56:39 EDT Subject: Pre-Visit Planning Due Date/Time: 05/29/2023 09:56:00 EDT Caller Name: MAGDALENO VALDERRAMA; Caller Number: Jahaira , M , B Sc Dr. Saab. During a pre-visit planning chart [...] feel free to contact me at extension [phone]. Thank you! Kacie Baez LPN From: Reyna MEJIA, Christo Alas To: Kacie Baez; Sent: 05/30/2023 08:32:47 EDT Subject: RE: Pre-Visit Planning Caller Name: MAGDALENO VALDERRAMA; Caller Number: Jahaira , M , B Please add to chart. Thanks Normal 272 [facility] TSH With T4fr Reflexon 05-30 TSH Qn 0.39 m[IU]/L Normal 0.34-5.60 [facility] Comment on above: Performed By: #### 2 126933, 77467703, 4222565, 2890247, 55632114 ####[facility] [address] [place] [address] eGFRon 05-30-2023 GFR/1.73 sq M.predicted among non-blacks MDRD (S/P/Bld) [Vol rate/Area] 50 mL/min/1.73 m2 Low >=59 [facility] Comment on above: Order Comment: Order added by Discern Expert. Result Comment: Jewelry Estimator herve kidney disease could be indicated at eGFR's of less than 60 mL/min/1.73m2. Kidney failure is indicated at less than 15 mL/min/1.73m2. Performed By: #### 2 067298, 53680049, 7447599, 3798896, 51846111 ####[facility] [address] [place] [address] Formson 05-10-2023 Forms [id number]#1.00TIFF Normal [facility] ALDOLASE BLDon 05-05-2023 Aldolase [Catalytic activity/Vol] 4.8 mU/mL 1.5 - 8.1 U/L [facility] Aldolase SerPl-cCncon 2022 Aldolase [Catalytic activity/Vol] 4.8 mU/mL Normal 1.5-8.1 [facility] Comment on above: Order Comment: Daria taylor Type: BLOOD SPECIMEN Ordering Facility: [facility] Address: [address] [place] [address] Result Comment: This test was developed and its performance characteristics determined by [facility]'s Raj JEfren [facility] Pathology and Laboratory Medicine Metter (RTPLMI). It has not been cleared or approved by the FDA. -[facility] is regulated under CLIA as qualified to perform high-complexity testing. This test is used for clinical purposes. It should not be regarded as investigational or for research. Performed By: #### 1 761-6 #### [facility] CLIA [id number] [address] [facility] [place] [address] [place] CK CREATINE KINASEon 023 CK [Catalytic activity/Vol] 68 U/L 51 - 298 U/L [facility] CK SerPl-cCncon 05-05-2023 CK [Catalytic activity/Vol] 68 U/L Normal 51-298 [facility] Comment on above: Order Comment: Daria taylor Type: BLOOD SPECIMEN Ordering Facility: [facility] Address: [address] [place] [address] Performed By: #### 2 157-6, 20288-2, 61069-8 #### [facility] CLIA [id number] [address] [facility] [place], [place] [id number] [place] [address] [place] CNOVon 05-05-2023 CNOV Office Visit (NRESFV ) -- MAGDALENO [id number]) 1940 M Date Time Provider Department 05/05/23 11:00 AM EFREN CARBAJAL NRESFV During your visit today, we recorded the following information about you: Temperature Pulse Blood pressure Weight 97.1 degrees 82/minute 120/59 62.6 kg Efren Carbajal, DO 05/05/2023 12:37 PM Signed [facility] - FOLLOW UP EVALUATION Amy Zuñiga MD [address] [facility] [address] Magdaleno Valderrama is a 82 year old [...] He goes to a PD class in [place] 3x weekly. He has more difficulty getting [...] Left pathological reflexes: Kailash's absent. Coordination Right: Jxcsfq-hx-dypg normal. Rapid alternating movement normal.Left: Patmcv-jz-hubc normal. Rapid alternating movement normal. Gait Casual [...] achieved. Rigidit (more content not included)... Normal [facility] Comprehensive metabolic 2000 panelon 05-05-2023 Albumin [Mass/Vol] 4.3 g/dL Normal 3.9-4.9 [facility] Comment on above: Order Comment: Daria taylor Type: BLOOD SPECIMEN Ordering Facility: [facility] Address: [address] [place] [address] Performed By: #### 2 157-6, 12009-2, #### [facility] CLIA [id number] [address] [place] [address] [place] ALP [Catalytic activity/Vol] 93 U/L Normal 38-113 [facility] Comment on above: Order Comment: Maryi claudia Type: BLOOD SPECIMEN Ordering Facility: [facility] Address: [address] [place] [address] Performed By: #### 2 157-6, 53576-8, #### [facility] CLIA [id number] [address] [place] [address] [place] ALT [Catalytic activity/Vol] U/L Low 10-54 [facility] Comment on above: Order Comment: Maryi men Type: BLOOD SPECIMEN Ordering Facility: [facility] Address: [address] [place] [address] Performed By: #### 2 157-6, 33262-7, 09628-0 #### [facility] CLIA [id number] [address] [place] [address] [place] Anion gap [Moles/Vol] 11 mmol/L Normal 9-18 [facility] Comment on above: Order Comment: Speci men Type: BLOOD SPECIMEN Ordering Facility: [facility] Address: [id number] Performed By: #### 2 157-6, 50901-6, #### [facility] CLIA [id number] [address] [place] [address] [place] AST [Catalytic activity/Vol] 20 U/L Normal 14-40 [facility] Comment on above: Order Comment: Speci men Type: BLOOD SPECIMEN Ordering Facility: [facility] Address: [address] [place] [address] Performed By: #### 2 157-6, 70594-6, #### [facility] CLIA [id number] [address] [place] [address] [place] Bilirubin [Mass/Vol] 0.5 mg/dL Normal 0.2-1.3 [facility] Comment on above: Order Comment: Speci men Type: BLOOD SPECIMEN Ordering Facility: [facility] Address: [address] [place] [address] Performed By: #### 2 157-6, 00299-0, #### [facility] CLIA [id number] [address] [place] [address] [place] Calcium [Mass/Vol] 9.6 mg/dL Normal 8.5-10.2 [facility] Comment on above: Order Comment: Speci men Type: BLOOD SPECIMEN Ordering Facility: [facility] Address: [address] [place] [address] Performed By: #### 2 157-6, 13890-5, #### [facility] CLIA [id number] [address] [place] [address] [place] Chloride [Moles/Vol] 99 mmol/L Normal 97-105 [facility] Comment on above: Order Comment: Speci men Type: BLOOD SPECIMEN Ordering Facility: [facility] Address: [address] [place] [id number] Performed By: #### 2 157-6, 40878-8, 05908-5 #### [facility] CLIA [id number] [address] [place] [address] [place] CO2 [Moles/Vol] 29 mmol/L Normal 22-30 [facility] Comment on above: Order Comment: Speci men Type: BLOOD SPECIMEN Ordering Facility: [facility] Address: [address] [place] [address] Performed By: #### 2 157-6, 67794-5, #### [facility] CLIA [id number] [address] [place] [address] [place] Creatinine [Mass/Vol] 1.13 mg/dL Normal 0.73-1.22 [facility] Comment on above: Order Comment: Speci men Type: BLOOD SPECIMEN Ordering Facility: [facility] Address: [address] [place] [address] Performed By: #### 2 157-6, 14343-1, #### [facility] CLIA [id number] [address] [place], [place] [id number] [place] [address] [place] Creatinine and Glomerular filtration rate.predicted panel (S/P/Bld) 64 mL/min/1.73m??? Normal >=60 [facility] Comment on above: Order Comment: Speci men Type: BLOOD SPECIMEN Ordering Facility: [facility] Address: [address] [place] [address] Result Comment: Clotilde mated Glomerular Filtration Rate [...] actual GFR. Performed By: #### 2 157-6, 53387-3, 72280-7 #### [facility] CLIA [id number] [address] [place] [address] [place] Glucose [Mass/Vol] 88 mg/dL Normal 74-99 [facility] Comment on above: Order Comment: Daria taylor Type: BLOOD SPECIMEN Ordering Facility: [facility] Address: [address] [place] [address] Result Comment: The [place] Diabetes Association (ADA) provides guidance for cutoff [...] Standards of Medical Care in Diabetes 2016, [place] Diabetes Association. Diabetes Care. 2016.39(Suppl 1). Performed By: #### 2 157-6, 94118-3, #### [facility] CLIA [id number] [address] [place] [address] [place] Potassium [Moles/Vol] 4.1 mmol/L Normal 3.7-5.1 [facility] Comment on above: Order Comment: Daria taylor Type: BLOOD SPECIMEN Ordering Facility: [facility] Address: [place] [address] Performed By: #### 2 157-6, 59195-8, #### [facility] CLIA [id number] [address] [place] [address] [place] Protein [Mass/Vol] 6.9 g/dL Normal 6.3-8.0 [facility] Comment on above: Order Comment: Daria taylor Type: BLOOD SPECIMEN Ordering Facility: [facility] Address: [address] [place] [address] Performed By: #### 2 157-6, 09015-5, #### [facility] CLIA [id number] [address] [place] [address] [place] Sodium [Moles/Vol] 139 mmol/L Normal 136-144 [facility] Comment on above: Order Comment: Speci men Type: BLOOD SPECIMEN Ordering Facility: [facility] Address: [address] [place] [address] Performed By: #### 2 157-6, 96660-2, #### [facility] CLIA [id number] [address] [place] [address] [place] Urea nitrogen [Mass/Vol] 35 mg/dL High 9-24 [facility] Comment on above: Order Comment: Speci men Type: BLOOD SPECIMEN Ordering Facility: [facility] Address: [address] [place] [address] Performed By: #### 2 157-6, , #### [facility] CLIA [id number] [address] [place] [address] [place] Albumin [Mass/Vol] 4.3 g/dL 3.9 - 4.9 g/dL [facility] ALP [Catalytic activity/Vol] 93 U/L 38 - 113 U/L [facility] ALT [Catalytic activity/Vol] Low 10 - 54 U/L [facility] Anion gap [Moles/Vol] 11 mmol/L 9 - 18 mmol/L [facility] AST [Catalytic activity/Vol] 20 U/L 14 - 40 U/L [facility] Bilirubin [Mass/Vol] 0.5 mg/dL 0.2 - 1 .3 mg/dL [facility] Calcium [Mass/Vol] 9.6 mg/dL 8.5 - 10. 2 mg/dL [facility] Chloride [Moles/Vol] 99 mmol/L 97 - 10 5 mmol/L [facility] CO2 [Moles/Vol] 29 mmol/L 22 - 30 mmol/L [facility] Creatinine [Mass/Vol] 1.13 mg/dL 0.73 - 1.22 mg/dL [facility] Estimated Glomerular Filtration Rate 64 mL/min/1.73m >=60 mL/min/1.7 3m [facility] Glucose [Mass/Vol] 88 mg/dL 74 - 99 mg/dL [facility] Potassium [Moles/Vol] 4.1 mmol/L 3.7 - 5.1 mmol/L [facility] Protein [Mass/Vol] 6.9 g/dL 6.3 - 8.0 g/dL [facility] Sodium [Moles/Vol] 139 mmol/L 136 - 144 mmol/L [facility] Urea nitrogen [Mass/Vol] 35 mg/dL High 9 - 24 mg/dL [facility] ESR Westergren method (Bld) [Velocity]on 05-05-2023 ESR (Bld) [Velocity] 5 mm/h 0 - 15 mm/hr [facility] ESR (Bld) [Velocity] 5 mm/h Normal 0-15 [facility] Comment on above: Order Comment: Speci men Type: BLOOD SPECIMEN Ordering Facility: [facility] Address: [place] [address] Performed By: #### 4 537-7 #### [facility] CLIA [id number] [address] [facility] [place] [place] [address] [place] MAGNESIUM BLDon 05-05-2023 Magnesium [Mass/Vol] 2.4 mg/dL High 1.7 - 2 .3 mg/dL [facility] Magnesium SerPl-mCncon 05-05 Magnesium [Mass/Vol] 2.4 mg/dL High 1.7-2.3 [facility] Comment on above: Order Comment: Speci men Type: BLOOD SPECIMEN Ordering Facility: [facility] Address: [place] [address] Performed By: #### 2 157-6, 58945-7, 72912-2 #### [facility] CLIA [id number] [address] [place] [address] [place] PYRUVATE+LACTATE BLon 2022 Lactate [Moles/Vol] 1.2 mmol/L 0.5 - 2. 2 mmol/L [facility] Pyruvate (Bld) [Moles/Vol] 0.02 mmol/L Low 0.03 - 0.10 mmol/L [facility] Lactate [Moles/Vol] 1.2 mmol/L Normal 0.5-2.2 [facility] Comment on above: Order Comment: Speci men Type: BLOOD SPECIMEN Ordering Facility: [facility] Address: [place] [address] Result Comment: This test was developed and its performance characteristics determined by [facility] Pathology and Laboratory Medicine Metter (-PLMI). It has not been cleared or approved by the FDA. RT-PLMI is regulated under CLIA as qualified to perform high-complexity testing. This test is used for clinical purposes. It should not be regarded as investigational or for research. Performed By: #### L ACPYR #### [facility] CLIA [id number] [address] [place] [address] [place] Pyruvate (Bld) [Moles/Vol] 0.02 mmol/L Low 0.03-0.10 [facility] Comment on above: Order Comment: Speci men Type: BLOOD SPECIMEN Ordering Facility: [facility] Address: [address] [place] [address] Result Comment: This test was developed and its performance characteristics determined by [facility] Pathology and Laboratory Medicine Metter (RT-PLMI). It has not been cleared or approved by the FDA. RT-PLMI is regulated under CLIA as qualified to perform high-complexity testing. This test is used for clinical purposes. It should not be regarded as investigational or for research. Performed By: #### L ACPYR #### [facility] CLIA [id number] [address] [place] [address] [place] Ambulatory Visit Summaryon 0 [...] EDT With: Reyna MEJIA, Christo Alas Where: [facility] [place] Normal [facility] ED Note-Physicianon 03-20-20 ED Note-Physician [id number]#1.00CD:127 Normal [facility] Family Medicine Office/Clini c Noteon 03-20-2023 Family Medicine Office/Clinic Note HPI Staff Magdaleno is a 82 year old male presenting with Constipation complaints of: Constipation (Requested [facility] ER report 03/20/23 went due to back [...] History Ongoing 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 This can be done either in [place] ([place] or metric measurements. Note that charts and online BMI calculators are available to help you find your BMI quickly and easily without having to do these calculations yourself. To calculate your BMI in [place] ([place] measurements: 1. Measure your weight in [...] for Disease Control and Prevention: www.cdc.gov ? [place] Heart Association: www.heart.org ? National Heart, Lung, and Blood Metter: www.nhlbi.nih.gov Summary ? Body mass index (BMI) is a number that is calculated from a person's weight and height. ? BMI may help estimate how much of a person's weight is composed of fat. BMI can help identify those who may be at higher risk for certain medical problems. ? BMI can be measured using [place] measurements or metric measurements. ? BMI charts are used to identify whether you are underweight, normal weight, overweight, or obese. This information is not intended to replace advice given to you by your health care provider. Make sure you discuss any questions you have with your health care provider. Document Revised: 04/08/2020 Document Reviewed: 02/14/2020 [employer] Patient Education ? 2022 [employer] [facility] RAD - CT Reporton 03-15-2023 RAD - CT Report [id number]#1.00CD:127 Normal [facility] RAD - MISCon 03-14-2023 RAD - MIS [id number]#1.00CD:127 Normal [facility] Ambulatory Visit Summaryon 0 02-20-2023 Ambulatory [...] AM EDT With: Christo Saab MD Where: [facility] Normal [facility] Cardiovascular Reporton 01-29 Cardiovascular Report [id number]#1.00CD:127 Normal [facility] ECG 12-Leadon 02-20-2023 ECG 12-Lead [id number]#1.00CD:127 Normal [facility] Family Medicine Office/Clini c Noteon 02-20-2023 [...] the emergency room. He has seen a addictions recovery specialist, Dr. Cesar, who advised him that he [...] that the patient discuss this with his addictions recovery specialist, so we know exactly what medication he [...] with voice recognition artificial intelligence software, specifically [employer] and or [employer]. Substitutions may have occurred due to the inherent limitations of voice recognition and artificial intelligence software. ATTESTATION: Documentation services were performed after patient or guardian consented to allow [employer] to record this visit. RASHAUN retail account specialist and provider reviewed before signing. RASHAUN: Stephanie Sauceda. 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 Normal [facility] Comment on above: Result Comment: Elec tronically Signed By: Christo Saab MD\.br\Date and Time Signed: 02/20/23 13:13 EDT\.br\Electronically Co-Signed By: Stephanie Sauceda.br\Date and Time Co-Signed: 02/20/23 11:43 EDT Retail - Clinical Noteon Retail - Clinical Note [id number]#1.00CD:127 Normal [facility] Physician Referralon 023 Physician Referral [id number]#[id number]:127 Normal [facility] Radiologyon 12-29-2022 XR Chest 2 Views Normal -[facility] [address] DO Work Phone: XR chest 2V*on 12-29-2022 XR chest 2V* [facility] [address] [address] XRay Report Signed Patient: Magdaleno Valderrama MR#: [id number] 181 : 1940 Acct:[id number] Age/Sex: 82 / M ADM Date: 12/29/22 Loc: [facility] Room: Type: [facility] Attending Dr: Roel Mireles MD Copies [...] Carr Jr., D.O.12/29/2022 1:38 PM Dictation Location: [place] [address] Transcribed By: [facility] 12/29/221337 Dictated By: Jean-Pierre Carr Jr, DO 12/29/221336 Signed By: 12/29/22 133[address] [facility] Formson 12-27-2022 Forms [id number]:127 [facility] Family Medicine Office/Clini c Noteon 12-20-2022 [...] he's doing better. History of Present Illness Mgadaleno Valderrama is an 82-year-old male who presents [...] minutes. 1. 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 RASHAUN retail account specialist and provider reviewed before signing. 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 Normal [facility] Carbon dioxide, total [Moles /volume] in Serum or PlasmaOrdered By: Edel Cesar on 12-13-2022 CO2 [Moles/Vol] 30.5 mmol/L Normal 21.0-31.[address] [facility] Comment on above: Performed By: #### L [facility] ####[facility] [address] [place] [address] [facility] Chloride [Moles/volume] in S siddharth or PlasmaOrdered By: Edel Cesar on 12-13-2022 Chloride [Moles/Vol] 99 mmol/L Normal 98-107 [facility] Comment on above: Performed By: #### L [facility] ####[facility] [address] [place] [id number] [facility] ECG 12 lead ECGon 12-13-2022 ECG 12 lead ECG [facility] [place] [address] Electrocardiograph Report Signed Patient: Magdaleno Valderrama MR#: [id number] 181 : 1940 Acct:[id number] Age/Sex: 82 / M ADM Date: 12/13/22 Loc: PO Room: Type: [facility] [place] Attending Dr: Edel Cesar MD [...] Edel Cesar MD 0 12/13/22 1254 Normal [facility] ECG post procedureon 023 ECG post procedure [facility] [place] [address] Electrocardiograph Report Signed Patient: Magdaleno Valderrama MR#: [id number] 181 : 1940 Acct:[id number] Age/Sex: 82 / M ADM Date: 12/13/22 Loc: [facility]: Edel Cesar MD Ordering Provider: [...] Edel Cesar MD 0 12/14/22 1641 Normal [facility] No Panel Informationon 12-13 12.9\S\12.9 Normal 6.0-15.0 [facility] [address] DO Work Phone: Comment on above: PERFORMED BY:[place] [address] [address] [place], [place] [phone] MEDICAL DIRECTORANGELIC RANDOLPH M.D. 30.5\S\30.5 Normal 21.0-31.0 [facility] [address] DO Work Phone: 99\S\99 Normal 98-107 [facility] [address] DO Work Phone: 4.4\S\4.4 Normal 3.5-5.1 [facility] [address] DO Work Phone: 138\S\138 Normal 136-145 [facility] [address] DO Work Phone: Potassium [Moles/volume] in Serum or PlasmaOrdered By: Edel Cesar on 12-13-2022 Potassium [Moles/Vol] 4.4 mmol/L Normal 3.5-5.1 [facility] Comment on above: Performed By: #### L YTES ####[place] [address] [address] Serum or plasma anion gap de terminationOrdered By: Edel Cesar on 12-13-2022 Anion gap [Moles/Vol] 12.9 mmol/L Normal 6.0-15.0 [facility] Comment on above: Result Comment: PERF ORMED BY: [facility] [address] [place] [address] PATHOLOGIST MANAGER VOICE ANGELIC RANDOLPH M.D. Performed By: #### L YTES ####[place] [address] [address] Sodium [Moles/volume] in Ser um or PlasmaOrdered By: Edel Cesar on 12-13-2022 Sodium [Moles/Vol] 138 mmol/L Normal 136-145 [facility] Comment on above: Performed By: #### L YTES ####[place] [address] [place] [id number] [facility] PROF CHEM 8 (BAS METB)on Anion gap [Moles/Vol] 10.5 mmol/L Normal [facility] Comment on above: Performed By: #### B MP #### [facility] [address] [place] [address] [address] Kaylene Montoya Calcium [Mass/Vol] 9.4 mg/dL Normal 8.5-10.1 [facility] Comment on above: Performed By: #### B MP #### [facility] [address] [place] [address] [address] Kaylene Montoya Chloride [Moles/Vol] 104 mmol/L Normal 98-107 [facility] Comment on above: Performed By: #### B MP #### [facility] [address] [place] [address] [address] Kaylene Montoya CO2 [Moles/Vol] 31.7 mmol/L Normal 21.0-32.0 [facility] Comment on above: Performed By: #### B MP #### [facility] [address] [place] [address] [address] Kaylene Montoya Creatinine [Mass/Vol] 1.14 mg/dL Normal 0.70-1.30 [facility] Comment on above: Performed By: #### B MP #### [facility] [address] [place] [address] [address] Kaylene Montoya EGFR-AF BAHAMIAN >60 Normal >=[address] [facility] Comment on above: Performed By: #### B MP #### [facility] [address] [place] [address] [address] Kaylene Montoya EGFR-NON AF BAHAMIAN >60 Normal >=60 [facility] Comment on above: Performed By: #### B MP #### [facility] [address] [place] [address] Dr. Kaylene Montoya Glucose [Mass/Vol] 100 mg/dL Normal 74-106 [facility] Comment on above: Performed By: #### B MP #### [facility] [address] [place] [address] Dr. Kaylene Montoya Potassium [Moles/Vol] 4.2 mmol/L Normal 3.5-5.[address] [facility] Comment on above: Performed By: #### B MP #### [facility] [address] [place] [address] Dr. Kaylene Montoya Sodium [Moles/Vol] 142 mmol/L Normal 136-[address] [facility] Comment on above: Performed By: #### B MP #### [facility] [address] [place] [address] Dr. Kaylene Montoya Urea nitrogen [Mass/Vol] 42.0 mg/dL Critically high 7.0-18.[address] [facility] Comment on above: Performed By: #### B MP #### [facility] [address] [place] [address] Dr. Kaylene Montoya Urea nitrogen/Creatinine [Mass ratio] 36.8 mg/mg Normal [facility] Comment on above: Performed By: #### B MP #### [facility] [address] [place] [address] Dr. Kaylene Montoya BNPon 11-28-2022 Natriuretic peptide B (Bld) [Mass/Vol] 2997.0 pg/mL Critically high <=1,800.[address] [facility] Comment on above: Performed By: #### P TT, PT #### [facility] [address] [place] [address] Dr. Kaylene Montoya PROF CHEM 8 (BAS METB)on Anion gap [Moles/Vol] 5.6 mmol/L Normal [facility] Comment on above: Performed By: #### P TT, PT #### [facility] [address] [place] [address] Dr. Kaylene Montoya Calcium [Mass/Vol] 9.8 mg/dL Normal 8.5-10.[address] [facility] Comment on above: Performed By: #### P TT, PT #### [facility] [address] [place] [address] Dr. Kaylene Montoya Chloride [Moles/Vol] 101 mmol/L Normal 98-[address] [facility] Comment on above: Performed By: #### P TT, PT #### [facility] [address] [place] [address] Dr. Kaylene Montoya CO2 [Moles/Vol] 36.3 mmol/L Critically high 21.0-32.[address] [facility] Comment on above: Performed By: #### P TT, PT #### [facility] [address] [place] [address] Dr. Kaylene Montoya Creatinine [Mass/Vol] 1.03 mg/dL Normal 0.70-1.[address] [facility] Comment on above: Performed By: #### P TT, PT #### [facility] [address] [place] [address] Dr. Kaylene Montoya EGFR-AF BAHAMIAN >60 Normal >=[address] [facility] Comment on above: Performed By: #### P TT, PT #### [facility] [address] [place] [address] Dr. Kaylene Montoya EGFR-NON AF BAHAMIAN >60 Normal >=[address] [facility] Comment on above: Performed By: #### P TT, PT #### [facility] [address] [place] [address] [address] Kaylene Montoya Glucose [Mass/Vol] 99 mg/dL Normal 74-[address] [facility] Comment on above: Performed By: #### P TT, PT #### [facility] [address] [place] [address] [address] Kaylene Montoya Potassium [Moles/Vol] 3.9 mmol/L Normal 3.5-5.[address] [facility] Comment on above: Performed By: #### P TT, PT #### [facility] [address] [place] [address] [address] Kaylene Montoya Sodium [Moles/Vol] 139 mmol/L Normal 136-[address] [facility] Comment on above: Performed By: #### P TT, PT #### [facility] [address] [place] [address] [address] Kaylene Montoya Urea nitrogen [Mass/Vol] 34.0 mg/dL Critically high 7.0-18.0 [facility] Comment on above: Performed By: #### P TT, PT #### [facility] [address] [place] [address] [address] Kaylene Montoya Urea nitrogen/Creatinine [Mass ratio] 33.0 mg/mg Normal [facility] Comment on above: Performed By: #### P TT, PT #### [facility] [address] [place] [address] [address] Kaylene Montoya Tobacco Screening.on 023 Adult depression screening assessment No [facility] CenterInmobiliarieCooperstown Medical CenterGreen Chips DO Work Phone: Fall risk assessment b) One or [facility] the [facility] DO Work Phone: Tobacco use status [facility] Phone: BNPon 11-24-2022 Natriuretic peptide B (Bld) [Mass/Vol] 3182.0 pg/mL Critically high <=1,800.[address] [facility] Comment on above: Performed By: #### F T4 #### [facility] [address] [place] [address] Dr. Kaylene Montoya CARDIAC CRISTIAN ADMITon 023 CK [Catalytic activity/Vol] 99 U/L Normal 39-[address] [facility] Comment on above: Performed By: #### F T4 #### [facility] [address] [place] [address] Dr. Kaylene Montoya CK.MB [Mass/Vol] 3.52 ng/mL Normal <=3.[address] [facility] Comment on above: Performed By: #### F T4 #### [facility] [address] [place] [address] Dr. Kaylene Montoya HSTROP 13.4 pg/mL Normal 4.0-76.[address] [facility] Comment on above: Result Comment: CUT- OFF POINTS HAVE BEEN ESTABLISHED BASED ON THE FOURTH UNIVERSAL DEFINITIONS OF MYOCARDIAL INFARCTION. THE UPPER REFERENCE LIMIT (URL) OF TROPONIN, DEFINED THE 99TH PERCENTILE OF cTnI DISTRIBUTION IN A REFERENCE POPULATION, HAS BEEN CONFIRMED THE DECISION THRESHOLD FOR [place] DIAGNOSIS. Performed By: #### F T4 #### [facility] [address] [place] [address] Dr. Kaylene Montoya LEOPOLDO 83 ng/mL Normal 16-[address] [facility] Comment on above: Performed By: #### F T4 #### [facility] [address] [place] [address] Dr. Kaylene Montoya CBC AUTO DIFFon 11-24-2022 BASO # 0.0 103/ul Normal 0.0-0.[address] [facility] Comment on above: Performed By: #### B MP #### [facility] [address] [place] [address] Dr. Kaylene Montoya Basophils/100 WBC (Bld) 0.4 % Normal 0.2-2.[address] [facility] Comment on above: Performed By: #### B MP #### [facility] [address] [place] [address] Dr. Kaylene Montoya EO # 0.1 103/ul Normal 0.0-0.[address] [facility] Comment on above: Performed By: #### B MP #### [facility] [address] [place], [place] [id number] Dr. Kaylene Montoya Eosinophils/100 WBC (Bld) 1.4 % Normal 0.9-7.0 [facility] Comment on above: Performed By: #### B MP #### [facility] [address] [place] [address] Dr. Kaylene Montoya Erythrocyte distribution width (RBC) [Ratio] 15.8 % Critically high 11.0-15.0 [facility] Comment on above: Performed By: #### B MP #### [facility] [address] [place] [address] Dr. Kaylene Montoya Hematocrit (Bld) [Volume fraction] 40.1 % Critically low 42.0-54.0 [facility] Comment on above: Performed By: #### B MP #### [facility] [address] [place] [address] Dr. Kaylene Montoya Hemoglobin (Bld) [Mass/Vol] 13.0 g/dL Critically low 14.0-18.0 [facility] Comment on above: Performed By: #### B MP #### [facility] [address] [place] [address] Dr. Kaylene Montoya IG # 0.04 10e3/ul Critically high 0.00-0.03 [facility] Comment on above: Performed By: #### B MP #### [facility] [address] [place] [address] Dr. Kaylene Montoya IG % 0.6 % Critically high 0.0-0.[address] [facility] Comment on above: Performed By: #### B MP #### [facility] [address] [place] [address] Dr. Kaylene Montoya LYMPH # 1.1 103/ul Critically low 1.2-3.[address] [facility] Comment on above: Performed By: #### B MP #### [facility] [address] [place] [address] Dr. Kaylene Montoya Lymphocytes/100 WBC (Bld) 15.5 % Critically low 20.5-60.0 [facility] Comment on above: Performed By: #### B MP #### [facility] [address] [place] [address] Dr. Kaylene Montoya MANUAL DIFF REQ NO Normal [facility] Comment on above: Performed By: #### B MP #### [facility] [address] [place] [address] Dr. Kaylene Montoya MCH (RBC) [Entitic mass] 29.7 pg Normal 25.9-34.0 [facility] Comment on above: Performed By: #### B MP #### [facility] [address] [place] [address] Dr. Kaylene Montoya MCHC (RBC) [Mass/Vol] 32.4 g/dL Normal 29.9-35.[address] [facility] Comment on above: Performed By: #### B MP #### [facility] [address] [place] [address] Dr. Kaylene Montoya MCV (RBC) [Entitic vol] 91.6 fL Normal 80.0-94.0 [facility] Comment on above: Performed By: #### B MP #### [facility] [address] [place] [address] Dr. Kaylene Montoya MONO # 0.7 103/ul Normal 0.3-0.8 [facility] Comment on above: Performed By: #### B MP #### [facility] [address] [place] [address] Dr. Kaylene Montoya Monocytes/100 WBC (Bld) 10.4 % Normal 1.7-12.[address] [facility] Comment on above: Performed By: #### B MP #### [facility] [address] [place] [address] Dr. Kaylene Montoya NEUT # 5.1 103/ul Normal 1.4-6.[address] [facility] Comment on above: Performed By: #### B MP #### [facility] [address] [place] [address] Dr. Kaylene Montoya Neutrophils/100 WBC (Bld) 71.7 % Normal 43.0-75.[address] [facility] Comment on above: Performed By: #### B MP #### [facility] [address] [place] [address] Dr. Kaylene Montoya Platelet mean volume (Bld) [Entitic vol] 10.4 fL Normal 9.5-13.5 [facility] Comment on above: Performed By: #### B MP #### [facility] [address] [place] [address] Dr. Kaylene Montoya PLT 155 103/ul Normal 150-450 [facility] Comment on above: Performed By: #### B MP #### [facility] [address] [place] [address] Dr. Kaylene Montoya RBC 4.38 106/ul Critically low 4.70-6.10 [facility] Comment on above: Performed By: #### B MP #### [facility] [address] [place] [address] Dr. Kaylene Montoya WBC 7.1 103/ul Normal 4.0-11.0 [facility] Comment on above: Performed By: #### B MP #### [facility] [address] [place] [address] Dr. Kaylene Montoya ER URINE PROFILEon 3 Bilirubin Ql (U) Negative Normal NEGATIVE [facility] Comment on above: Performed By: #### L ACT #### [facility] [address] [place] [address] Dr. Kaylene Montoya Clarity (U) CLEAR Normal CLEAR [facility] Comment on above: Performed By: #### L ACT #### [facility] [address] [place] [address] Dr. Kaylene Montoya Color (U) YELLOW Normal YELLOW [facility] Comment on above: Performed By: #### L ACT #### [facility] [address] [place] [address] Dr. Kaylene Montoya ERUAHD A micrscopic examina tion will be performed if indicated. Normal [facility] Comment on above: Performed By: #### L ACT #### [facility] [address] [place] [address] Dr. Kaylene Montoya Glucose Ql (U) Negative Normal NEGATIVE [facility] Comment on above: Performed By: #### L ACT #### [facility] [address] [place] [address] Dr. Kaylene Montoya Hemoglobin Ql (U) LARGE Abnormal NEGATIVE [facility] Comment on above: Performed By: #### L ACT #### [facility] [address] [place] [address] Dr. Kaylene Montoya Ketones Ql (U) TRACE Abnormal NEGATIVE [facility] Comment on above: Performed By: #### L ACT #### [facility] [address] [place] [address] Dr. Kaylene Montoya LEUKOCYTES TRACE Abnormal NEGATIVE [facility] Comment on above: Performed By: #### L ACT #### [facility] [address] [place] [address] Dr. Kaylene Montoya Nitrite Ql (U) Negative Normal NEGATIVE [facility] Comment on above: Performed By: #### L ACT #### [facility] [address] [place] [address] Dr. Kaylene Montoya pH (U) 5.5 [pH] Normal 5-[address] [facility] Comment on above: Performed By: #### L ACT #### [facility] [address] [place] [address] Dr. Kaylene Montoya Protein (U) [Mass/Vol] 30 mg/dL Abnormal NEGAT TOMAS/ TRACE [facility] Comment on above: Performed By: #### L ACT #### [facility] [address] [place] [address] Dr. Kaylene Montoya SPEC GRAVITY 1.025 Normal 1.005-<=1. [address] [facility] Comment on above: Performed By: #### L ACT #### [facility] [address] [place] [address] Dr. Kaylene Montoya UR MICRO IND INDICATED Normal [facility] Comment on above: Performed By: #### L ACT #### [facility] [address] [place] [address] Dr. Kaylene Montoya Urobilinogen Qn (U) 0.2 {Mary Kate'U}/dL Normal 0.2 - 1. 0 [facility] Comment on above: Performed By: #### L ACT #### [facility] [address] [place] [address] Dr. Kaylene Montoya PROF 14(COMP METB)on 023 Albumin [Mass/Vol] 3.7 g/dL Normal 3.4-5.0 [facility] Comment on above: Performed By: #### F T4 #### [facility] [address] [address] [address] Kaylene Montoya Albumin/Globulin [Mass ratio] 1.3 {ratio} Normal [facility] Comment on above: Performed By: #### F T4 #### [facility] [address] [address] [address] Kaylene Montoya ALP [Catalytic activity/Vol] 89 U/L Normal 46-116 [facility] Comment on above: Performed By: #### F T4 #### [facility] [address] [place] [address] Dr. Kaylene Montoya ALT [Catalytic activity/Vol] 17 U/L Normal 16-63 [facility] Comment on above: Performed By: #### F T4 #### [facility] [address] [address] [address] Kaylene Montoya Anion gap [Moles/Vol] 11.6 mmol/L Normal [facility] Comment on above: Performed By: #### F T4 #### [facility] [address] [place] [address] Dr. Kaylene Montoya AST [Catalytic activity/Vol] 23 U/L Normal 15-37 [facility] Comment on above: Performed By: #### F T4 #### [facility] [address] [address] [address] Kaylene Montoya Bilirubin [Mass/Vol] 0.7 mg/dL Normal 0.2-1.[address] [facility] Comment on above: Performed By: #### F T4 #### [facility] [address] [place] [address] Dr. Kaylene Montoya Calcium [Mass/Vol] 9.2 mg/dL Normal 8.5-10.1 [facility] Comment on above: Performed By: #### F T4 #### [facility] [address] [place] [address] Dr. Kaylene Montoya Chloride [Moles/Vol] 104 mmol/L Normal 98-[address] [facility] Comment on above: Performed By: #### F T4 #### [facility] [address] [place] [address] Dr. Kaylene Montoya CO2 [Moles/Vol] 29.2 mmol/L Normal 21.0-32.0 [facility] Comment on above: Performed By: #### F T4 #### [facility] [address] [place] [address] Dr. Kaylene Montoya Creatinine [Mass/Vol] 1.17 mg/dL Normal 0.70-1.[address] [facility] Comment on above: Performed By: #### F T4 #### [facility] [address] [place] [address] Dr. Kaylene Montoya EGFR-AF BAHAMIAN >60 Normal >=60 [facility] Comment on above: Performed By: #### F T4 #### [facility] [address] [place] [address] Dr. Kaylene Montoya EGFR-NON AF BAHAMIAN 59 mL/min/1.73m2 Critically low >=[address] [facility] Comment on above: Performed By: #### F T4 #### [facility] [address] [place] [address] Dr. Kaylene Montoya Globulin (S) [Mass/Vol] 2.9 g/dL Normal [facility] Comment on above: Performed By: #### F T4 #### [facility] [address] [place] [address] Dr. Kaylene Montoya Glucose [Mass/Vol] 88 mg/dL Normal 74-[address] [facility] Comment on above: Performed By: #### F T4 #### [facility] [address] [place] [address] Dr. Kaylene Montoya Potassium [Moles/Vol] 4.8 mmol/L Normal 3.5-5.[address] [facility] Comment on above: Performed By: #### F T4 #### [facility] [address] [place] [address] Dr. Kaylene Montoya Protein [Mass/Vol] 6.6 g/dL Normal 6.4-8.2 [facility] Comment on above: Performed By: #### F T4 #### [facility] [address] [place] [address] Dr. Kaylene Montoya Sodium [Moles/Vol] 140 mmol/L Normal 136-145 [facility] Comment on above: Performed By: #### F T4 #### [facility] [address] [place] [address] Dr. Kaylene Montoya Urea nitrogen [Mass/Vol] 25.0 mg/dL Critically high 7.0-18.0 [facility] Comment on above: Performed By: #### F T4 #### [facility] [address] [place] [address] Dr. Kaylene Montoya Urea nitrogen/Creatinine [Mass ratio] 21.4 mg/mg Normal [facility] Comment on above: Performed By: #### F T4 #### [facility] [address] [place] [address] Dr. Kaylene Montoya PROTIMEon 11-24-2022 INR Coag (PPP) [Relative time] 1.34 {INR} Normal [facility] Comment on above: Performed By: #### L ACT #### [facility] [address] [place] [address] Dr. Kaylene Montoya INR GUIDELINES SEE BELOW Normal [facility] Comment on above: Result Comment: JOSE RED INR: 2.0 - 3.0 CONDITIONS NOT LISTED BELOW 2.5 - 3.5 FOR PROSTHETIC HEART VALVE REPLACEMENT 2.5 - 3.5 RECURRENT THROMBOSIS Performed By: #### L ACT #### [facility] [address] [place] [address] Dr. Kaylene Montoya PT Coag (PPP) [Time] 14.0 s Critically high 9.0-11.6 [facility] Comment on above: Performed By: #### L ACT #### [facility] [address] [place] [address] Dr. Kaylene Montoya PTTon 11-24-2022 aPTT Coag (Bld) [Time] 31.8 s Normal 22.3-36.2 [facility] Comment on above: Performed By: #### L ACT #### [facility] [address] [place] [address] Dr. Kaylene Montoya TSHon 11-24-2022 TSH 5.486 uIU/mL Critically high 0.358-3.[address] [facility] Comment on above: Performed By: #### F T4 #### [facility] [address] [place] [address] Dr. Kaylene Montoya URINE MICROSCOPIC ONLYon BACTERIA NONE SEEN Normal NONE SEEN [facility] Comment on above: Performed By: #### L ACT #### [facility] [address] [place] [address] Dr. Kaylene Montoya Bacteria identified Cx Nom (U) NOT INDICATED Normal [facility] Comment on above: Performed By: #### L ACT #### [facility] [address] [place] [address] Dr. Kaylene Montoya CAST NONE SEEN Normal NONE SEEN [facility] Comment on above: Performed By: #### L ACT #### [facility] [address] [place] [address] Dr. Kaylene Montoya Crystals LM Nom (Urine sed) NONE SEEN Normal NONE SEEN [facility] Comment on above: Performed By: #### L ACT #### [facility] [address] [place] [address] Dr. Kaylene Montoya Epithelial cells LM Ql (Urine sed) RARE Normal NONE SEEN /RARE [facility] Comment on above: Performed By: #### L ACT #### [facility] [address] [place] [address] Dr. Kaylene Montoya MUCOUS NONE SEEN Normal NONE SEEN [facility] Comment on above: Performed By: #### L ACT #### [facility] [address] [place] [address] Dr. Kaylene Montoya RBC 20-50 Abnormal 0-[address] [facility] Comment on above: Performed By: #### L ACT #### [facility] [address] [place] [address] Dr. Kaylene Montoya WBC 0-2 Abnormal NONE SEEN [facility] Comment on above: Performed By: #### L ACT #### [facility] [address] [id number] Kaylene Montoya US SCROTUM W VASCULAR [...] Date: 2022-11-24 12:34 Normal [facility] XR CHEST 1 Von 11-24-2022 XR CHEST [...] by: USHA FERMIN Date: 2022-11-24 11:29 Normal [facility] Physician Referralon 023 Physician Referral [id number]:127 Normal [facility] Family Medicine Office/Clini c Noteon 11-17-2022 [...] His neurologist is Dr. Real Montilla at [facility]. The patient is taking clonazepam for [...] than to fall on the floor. His addictions recovery specialist is Dr. Edel Cesar. Magdaleno explains that [...] hypotension. 4. 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 Cesar at [facility]. No issues today. No chest pain. 5. Parkinson's disease (G20: Parkinson's disease) The patient is seeing a specialist, Dr. Montilla out of [place]. The patient has carbidopa levodopa for this. [...] a PFT (more content not included)... 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 Elevated PSA Normal [facility] RAD - Ultrasound Reporton RAD - Ultrasound Report [id number]#[id number]:127 Normal [facility] CNOVon 10-20-2022 CNOV Office Visit (NRESAV ) -- MAGDALENO VALDERRAMA ([id number]) 1940 M Date Time Provider Department 10/20/22 4:00 PM EFREN CARBAJAL During your visit today, we recorded the following information about you: Pulse Blood pressure 82/minute 155/91 Efren Carbajal DO 10/20/2022 4:19 PM Signed [facility] - FOLLOW UP EVALUATION Efren Carbajal [address] [facility] [address] Amy Zuñiga MD [address] [facility] [address] Magdaleno Valderrama is a 82 year old [...] Left pathological reflexes: Kailash's absent. Coordination Right: Polwsz-rm-oezs normal. Rapid alternating movement normal.Left: Ruxoxn-en-mzda normal. Rapid alternating movement normal. Gait Casual [...] marked bilatera (more content not included)... Normal [facility] SINGLE QUAD RT UPPERon SINGLE QUAD RT [...] by: USHA FERMIN Date: 2022-10-19 09:57 Normal [facility] Physician Referralon 023 Physician Referral [id number]:127 Normal [facility] Family Medicine Office/Clini c Noteon 10-11-2022 Family Medicine Office/Clinic Note Chief Complaint hospital follow up, staple removal HPI Staff Patient is here for a hospital follow up needs kev out TCM: Hospital:[facility] Admission date: 09/24/22 Discharge date:09/27/22 Symptoms the [...] heart disease (I25.10: Atherosclerotic heart disease of navajo coronary artery without angina pectoris) Orders: Body [...] Immunizations Vaccine Date Status Comments SARS-CoV-2 (COVID-19) mRNAMUL.ORD![id number] 07/13/2022 Recorded 2022-10-07: TPV80 influenza virus vaccine, [...] Recorded influenza, whole 05/16/2009 Recorded Normal [facility] Comment on above: Result Comment: Elec tronically Signed By: YOGESH MEJIA, AMY Humphries\Date and Time Signed: 10/11/22 14:52 EDT Family Medicine Office/Clinic Note Chief Complaint hospital follow up, staple removal HPI Staff Patient is here for a hospital follow up needs kev out TCM: Hospital:[facility] Admission date: 09/24/22 Discharge date:09/27/22 Symptoms the patient presented with: had passed out hit the gravel and ended up getting a pacemaker Current concerns: none PSA: unkonw ? due AMW: Flu/Covid:UTD History of Present Illness Fell striking his cheeck and needed a pacemaker that was placed by Dr Ellis. Review of Systems see [facility] Physical Exam Vitals & Measurements HR: 88(Peripheral) RR: 20 BP: 130/82 SpO2: 99% HT: 68 in HT: 172.70 cm WT: 68.9 kg WT: 151.58 lb BMI: 23.1 Wound healed without infection. seven kev two were buried that needed extensive work fot removal. Assessment/Plan 1. Atherosclerotic heart disease (I25.10: Atherosclerotic heart disease of navajo coronary artery without angina pectoris) sTitches relmoved [...] Immunizations Vaccine Date Status Comments SARS-CoV-2 (COVID-19) mRNAMUL.ORD![id number] 07/13/2022 Recorded 2022-10-07: TPV80 influenza virus vaccine, [...] Recorded influenza, whole 05/16/2009 Recorded Normal [facility] Comment on above: Result Comment: Elec tronically Signed By: YOGESH MEJIA, AMY Humphries\Date and Time Signed: 10/11/22 14:46 EDT Basophils Auto (Bld) [#/Vol] Ordered By: Jordan Gallegos on 09-27-2022 Basophils (Bld) [#/Vol] 0.0 10*3/uL 0.0-0.2 [facility] Basophils/100 WBC Auto (Bld) Ordered By: Jordan Gallegos on 09-27-2022 Basophils/100 WBC (Bld) 0.3 % . [facility] Calcium [Mass/volume] in Ser um or PlasmaOrdered By: Jordan Gallegos on 09-27-2022 Calcium [Mass/Vol] 8.3 mg/dL 8.2-10.2 [facility] Carbon dioxide, total [Moles /volume] in Serum or PlasmaOrdered By: Jordan Gallegos on 09-27-2022 CO2 [Moles/Vol] 27.0 mmol/L 22.0-30.[address] [facility] Chloride [Moles/volume] in S siddharth or PlasmaOrdered By: Jordan Gallegos on 09-27-2022 Chloride [Moles/Vol] 101 mmol/L 95-114 [facility] Creatinine and Glomerular fi ltration rate.predicted panel (S/P/Bld)Ordered By: Jordan Gallegos on 09-27-2022 Creatinine [Mass/Vol] 0.89 mg/dL 0.64-1.27 [facility] Eosinophils Auto (Bld) [#/Vo l]Ordered By: Jordan Gallegos on 09-27-2022 Eosinophils (Bld) [#/Vol] 0.1 10*3/uL 0.0-0.45 [facility] Eosinophils/100 WBC Auto (Bl d)Ordered By: Jordan Gallegos on 09-27-2022 Eosinophils/100 WBC (Bld) 1.5 % . [facility] Erythrocyte distribution wid th Auto (RBC) [Ratio]Ordered By: Jordan Gallegos on 09-27-2022 Erythrocyte distribution width (RBC) [Ratio] 18.0 % 12.0-14.8 [facility] Estimated glomerular filtrat ion rate (GFR) non- AmericanOrdered By: Jordan Gallegos on 09-27-2022 GFR/1.73 sq M.predicted among non-blacks MDRD (S/P/Bld) [Vol rate/Area] > 60 mL/Min [facility] Glucose [Mass/volume] in Ser um or PlasmaOrdered By: Jordan Gallegos on 09-27-2022 Glucose [Mass/Vol] 89 mg/dL 70-100 [facility] Comment on above: ADA recommended refe rence rangeRandom Glucose Reference Range is dependent on time and content of last meal. Glucose of more than 200 mg/dL in a nonstressed, ambulatory subject supports the diagnosis of Diabetes Mellitus. Hematocrit Auto (Bld) [Volum e fraction]Ordered By: Jordan Gallegos on 09-27-2022 Hematocrit (Bld) [Volume fraction] 35.5 % 38.8-50.0 [facility] Hemoglobin [Mass/volume] in BloodOrdered By: Jordan Gallegos on 09-27-2022 Hemoglobin (Bld) [Mass/Vol] 11.7 g/dL 13.0-17.0 [facility] Laboratory - Chemistry and C hemistry - challengeOrdered By: Jordan Gallegos on 09-27-2022 Magnesium [Mass/Vol] 1.8 mg/dL 1.6-2.6 [facility] Leukocytes [#/volume] correc parag for nucleated erythrocytes in Blood by Automated counOrdered By: Jordan Gallegos on 09-27-2022 WBC corrected for nucl RBC Auto (Bld) [#/Vol] 7.8 10*3/uL 4.1-10.5 [facility] Lymphocytes Auto (Bld) [#/Vo l]Ordered By: Jordan Gallegos on 09-27-2022 Lymphocytes (Bld) [#/Vol] 0.9 10*3/uL 1.00-4.8 [facility] Lymphocytes/100 WBC Auto (Bl d)Ordered By: Jordan Gallegos on 09-27-2022 Lymphocytes/100 WBC (Bld) 11.6 % . [facility] MCH Auto (RBC) [Entitic mass ]Ordered By: Jordan Gallegos on 09-27-2022 MCH (RBC) [Entitic mass] 29.7 pg 27.5-35.2 [facility] MCHC Auto (RBC) [Mass/Vol]Or dered By: Jordan Gallegos on 09-27-2022 MCHC (RBC) [Mass/Vol] 32.8 g/dL 32.5-35.6 [facility] MCV Auto (RBC) [Entitic vol] Ordered By: Jordan Gallegos on 09-27-2022 MCV (RBC) [Entitic vol] 90.5 fL 83.5-101 [facility] Monocytes Auto (Bld) [#/Vol] Ordered By: Jordan Gallegos on 09-27-2022 Monocytes (Bld) [#/Vol] 0.8 10*3/uL 0.0-0.8 [facility] Monocytes/100 WBC Auto (Bld) Ordered By: Jordan Gallegos on 09-27-2022 Monocytes/100 WBC (Bld) 10.3 % . [facility] Neutrophils Auto (Bld) [#/Vo l]Ordered By: Jordan Gallegos on 09-27-2022 Neutrophils (Bld) [#/Vol] 6.0 10*3/uL 1.8-7.7 [facility] Neutrophils/100 WBC Auto (Bl d)Ordered By: Jordan Gallegos on 09-27-2022 Neutrophils/100 WBC (Bld) 76.3 % . [facility] No Panel InformationOrdered By: Jordan Gallegos on 09-27-2022 Estimated GFR () > 60 mL/Min [facility] Comment on above: GFR estimated refere nce range: According to KDOQI guidelines, <60 ml/min/1.73m2 is sufficient to diagnose a patient with chronic kidney disease. Pharmacy Creatinine Clearance (Chem 59.78 [facility] Nucleated erythrocytes [Pres ence] in Blood by Automated countOrdered By: Jordan Gallegos on 09-27-2022 Nucleated RBC Auto Ql (Bld) 0.0 /100{WBC} 0-0.5 [facility] Platelet mean volume Auto (B ld) [Entitic vol]Ordered By: Jordan Gallegos on 09-27-2022 Platelet mean volume (Bld) [Entitic vol] 8.3 fL 6.6-10.1 [facility] Platelets Auto (Bld) [#/Vol] Ordered By: Jordan Gallegos on 09-27-2022 Platelets (Bld) [#/Vol] 122 10*3/uL 150-450 [facility] Potassium [Moles/volume] in Serum or PlasmaOrdered By: Jordan Gallegos on 09-27-2022 Potassium [Moles/Vol] 3.9 mmol/L 3.5-5.1 [facility] RBC Auto (Bld) [#/Vol]Ordere d By: Jordan Gallegos on 09-27-2022 RBC (Bld) [#/Vol] 3.92 10*6/uL 3.90-5.60 [facility] Serum or plasma anion gap de terminationOrdered By: Jordan Gallegos on 09-27-2022 Anion gap [Moles/Vol] 9.9 mmol/L 6.0-15.0 [facility] Sodium [Moles/volume] in Ser um or PlasmaOrdered By: Jordan Gallegos on 09-27-2022 Sodium [Moles/Vol] 134 mmol/L 136-146 [facility] Urea nitrogen [Mass/volume] in Serum or PlasmaOrdered By: Jordan Gallegos on 09-27-2022 Urea nitrogen [Mass/Vol] 18 mg/dL 9-23 [facility] WBC Auto (Bld) [#/Vol]Ordere d By: Jordan Gallegos on 09-27-2022 WBC (Bld) [#/Vol] 7.8 10*3/uL 4.1-10.5 [facility] Activated partial thrombopla stin time (aPTT) in platelet poor plasma by coagulation aOrdered By: Roel Mireles on 09-26-2022 aPTT Coag (PPP) [Time] 34.0 s 25.1-36.5 [facility] Albumin [Mass/volume] in Bod y fluidOrdered By: Jordan Gallegos on 09-26-2022 Albumin (Body fld) [Mass/Vol] 3.3 g/dL 3.2-5.5 [facility] Alkaline phosphatase [Enzyma tic activity/volume] in Serum or PlasmaOrdered By: Jordan Gallegos on 09-26-2022 ALP [Catalytic activity/Vol] 74 U/L 32-92 [facility] Aspartate aminotransferase [ Enzymatic activity/volume] in Serum or PlasmaOrdered By: Jordan Gallegos on 09-26-2022 AST [Catalytic activity/Vol] 25 U/L 10-42 [facility] Bilirubin.total [Mass/volume ] in Serum or PlasmaOrdered By: Jordan Gallegos on 09-26-2022 Bilirubin [Mass/Vol] 1.0 mg/dL 0.3-1.2 [facility] Globulin Calc (S) [Mass/Vol] Ordered By: Jordan Gallegos on 09-26-2022 Globulin (S) [Mass/Vol] 2.1 g/dL [facility] - CoagulationOrde red By: Roel Mireles on 09-26-2022 PT Coag (PPP) [Time] 15.6 s 9.0-12.9 [facility] Platelet poor plasma interna tional normalized ratio (INR) by coagulation assay (relatOrdered By: Roel Mireles on 09-26-2022 INR Coag (PPP) [Relative time] 1.4 {INR} [facility] Comment on above: INR Therapeutic Rang e [...] on 09-26-2022 Protein [Mass/Vol] 5.4 g/dL 6.1-7.9 [facility] Serum or plasma alanine li otransferase measurement without P-5'-P (enzymatic activiOrdered By: Jordan Gallegos on 09-26-2022 ALT No additional P-5'-P [Catalytic activity/Vol] 10 U/L 10-60 [facility] Serum or plasma albumin/glob ulin mass ratioOrdered By: Jordan Gallegos on 09-26-2022 Albumin/Globulin [Mass ratio] 1.6 {ratio} [facility] CARDIAC CRISTIAN ADMITon 023 CK [Catalytic activity/Vol] 291 U/L Normal 39-308 [facility] Comment on above: Performed By: #### L ACT #### [facility] [address] [address] [address] Kaylene Montoya CK.MB [Mass/Vol] 9.66 ng/mL Critically high <=3.[address] [facility] Comment on above: Performed By: #### L ACT #### [facility] [address] [address] [address] Kaylene Montoya HSTROP 25.4 pg/mL Normal 4.0-76.[address] [facility] Comment on above: Result Comment: CUT- OFF POINTS HAVE BEEN ESTABLISHED BASED ON THE FOURTH UNIVERSAL DEFINITIONS OF MYOCARDIAL INFARCTION. THE UPPER REFERENCE LIMIT (URL) OF TROPONIN, DEFINED THE 99TH PERCENTILE OF cTnI DISTRIBUTION IN A REFERENCE POPULATION, HAS BEEN CONFIRMED THE DECISION THRESHOLD FOR [place] DIAGNOSIS. Performed By: #### L ACT #### [facility] [address] [address] [address] Kaylene Montoya LEOPOLDO 357 ng/mL Critically high 16-96 [facility] Comment on above: Performed By: #### L ACT #### [facility] [address] [address] [address] Kaylene Montoya CBC AUTO DIFFon 09-25-2022 BASO # 0.0 103/ul Normal 0.0-0.1 [facility] Comment on above: Performed By: #### P TT, PT #### [facility] [address] [address] [address] Kaylene Montoya Basophils/100 WBC (Bld) 0.4 % Normal 0.2-2.[address] [facility] Comment on above: Performed By: #### P TT, PT #### [facility] [address] [address] [address] Kaylene Montoya EO # 0.1 103/ul Normal 0.0-0.7 [facility] Comment on above: Performed By: #### P TT, PT #### [facility] [address] [place] [address] Dr. Kaylene Montoya Eosinophils/100 WBC (Bld) 1.1 % Normal 0.9-7.0 [facility] Comment on above: Performed By: #### P TT, PT #### [facility] [address] [place] [address] Dr. Kaylene Montoya Erythrocyte distribution width (RBC) [Ratio] 18.3 % Critically high 11.0-15.0 [facility] Comment on above: Performed By: #### P TT, PT #### [facility] [address] [place] [address] Dr. Kaylene Montoya Hematocrit (Bld) [Volume fraction] 35.4 % Critically low 42.0-54.0 [facility] Comment on above: Performed By: #### P TT, PT #### [facility] [address] [place] [address] Dr. Kaylene Montoya Hemoglobin (Bld) [Mass/Vol] 11.5 g/dL Critically low 14.0-18.0 [facility] Comment on above: Performed By: #### P TT, PT #### [facility] [address] [place] [address] Dr. Kaylene Montoya IG # 0.04 10e3/ul Critically high 0.00-0.03 [facility] Comment on above: Performed By: #### P TT, PT #### [facility] [address] [place] [address] Dr. Kaylene Montoya IG % 0.5 % Normal 0.0-0.5 [facility] Comment on above: Performed By: #### P TT, PT #### [facility] [address] [place] [address] Dr. Kaylene Montoya LYMPH # 0.9 103/ul Critically low 1.2-3.8 [facility] Comment on above: Performed By: #### P TT, PT #### [facility] [address] [place] [address] Dr. Kaylene Montoya Lymphocytes/100 WBC (Bld) 11.5 % Critically low 20.5-60.0 [facility] Comment on above: Performed By: #### P TT, PT #### [facility] [address] [place] [address] Dr. Kaylene Montoya MANUAL DIFF REQ NO Normal [facility] Comment on above: Performed By: #### P TT, PT #### [facility] [address] [place] [address] Dr. Kaylene Montoya MCH (RBC) [Entitic mass] 29.4 pg Normal 25.9-34.0 [facility] Comment on above: Performed By: #### P TT, PT #### [facility] [address] [place] [address] Dr. Kaylene Montoya MCHC (RBC) [Mass/Vol] 32.5 g/dL Normal 29.9-35.2 [facility] Comment on above: Performed By: #### P TT, PT #### [facility] [address] [place] [address] Dr. Kaylene Montoya MCV (RBC) [Entitic vol] 90.5 fL Normal 80.0-94.0 [facility] Comment on above: Performed By: #### P TT, PT #### [facility] [address] [place] [address] Dr. Kaylene Montoya MONO # 1.0 103/ul Critically high 0.3-0.8 [facility] Comment on above: Performed By: #### P TT, PT #### [facility] [address] [place] [address] Dr. Kaylene Montoya Monocytes/100 WBC (Bld) 12.3 % Critically high 1.7-12.0 [facility] Comment on above: Performed By: #### P TT, PT #### [facility] [address] [place] [address] Dr. Kaylene Montoya NEUT # 6.0 103/ul Normal 1.4-6.5 [facility] Comment on above: Performed By: #### P TT, PT #### [facility] [address] [place] [address] Dr. Kaylene Montoya Neutrophils/100 WBC (Bld) 74.2 % Normal 43.0-75.0 [facility] Comment on above: Performed By: #### P TT, PT #### [facility] [address] [place] [address] Dr. Kaylene Montoya Platelet mean volume (Bld) [Entitic vol] 10.3 fL Normal 9.5-13.5 [facility] Comment on above: Performed By: #### P TT, PT #### [facility] [address] [place] [address] Dr. Kaylene Montoya PLT 132 103/ul Critically low 150-450 [facility] Comment on above: Performed By: #### P TT, PT #### [facility] [address] [place] [address] Dr. Kaylene Montoya RBC 3.91 106/ul Critically low 4.70-6.10 [facility] Comment on above: Performed By: #### P TT, PT #### [facility] [address] [place] [address] Dr. Kaylene Montoya WBC 8.0 103/ul Normal 4.0-11.0 [facility] Comment on above: Performed By: #### P TT, PT #### [facility] [address] [place] [address] Dr. Kaylene Montyoa Covid-19 PCR ([facility])on 09-01 SARS-CoV-2 (COVID-19) RNA RENU+probe Ql (Unsp spec) Not detected Normal NOT DETECTED [facility] Comment on above: Result Comment: When diagnostic [...] for this test is supported by the [place] of Health and Human Service's declaration that [...] By: #### C VDTBH #### [facility] [address] [place] [address] Dr. Kaylene Montoya FREE T3on 09-25-2022 FREE T3 1.36 pg/mlL Critically low 2.18-3.98 [facility] Comment on above: Performed By: #### L ACT #### [facility] [address] [place] [address] Dr. Kaylene Montoya T4on 09-25-2022 T4 [Mass/Vol] 5.50 ug/dL Normal 4.50-12.10 [facility] Comment on above: Performed By: #### T 4 #### [facility] [address] [place] [address] Dr. Kaylene Montoya TSHon 09-25-2022 TSH 3.804 uIU/mL Critically high 0.358-3.74 0 [facility] Comment on above: Performed By: #### P TT, PT #### [facility] [address] [place] [address] Dr. Kaylene Montoya CBC AUTO DIFFon 09-24-2022 BASO # 0.0 103/ul Normal 0.0-0.1 [facility] Comment on above: Performed By: #### C BC #### [facility] [address] [place] [address] Dr. Kaylene Montoya Basophils/100 WBC (Bld) 0.4 % Normal 0.2-2.0 [facility] Comment on above: Performed By: #### C BC #### [facility] [address] [place] [address] Dr. Kaylene Montoya EO # 0.1 103/ul Normal 0.0-0.7 [facility] Comment on above: Performed By: #### C BC #### [facility] [address] [place] [address] Dr. Kaylene Montoya Eosinophils/100 WBC (Bld) 1.7 % Normal 0.9-7.0 [facility] Comment on above: Performed By: #### C BC #### [facility] [address] [place] [address] Dr. Kaylene Montoya Erythrocyte distribution width (RBC) [Ratio] 18.2 % Critically high 11.0-15.0 [facility] Comment on above: Performed By: #### C BC #### [facility] [address] [place] [address] Dr. Kaylene Montoya Hematocrit (Bld) [Volume fraction] 35.8 % Critically low 42.0-54.0 [facility] Comment on above: Performed By: #### C BC #### [facility] [address] [place] [address] Dr. Kaylene Montoya Hemoglobin (Bld) [Mass/Vol] 11.7 g/dL Critically low 14.0-18.0 [facility] Comment on above: Performed By: #### C BC #### [facility] [address] [place] [address] Dr. Kaylene Montoya IG # 0.04 10e3/ul Critically high 0.00-0.03 [facility] Comment on above: Performed By: #### C BC #### [facility] [address] [place] [address] Dr. Kaylene Montoya IG % 0.6 % Critically high 0.0-0.5 [facility] Comment on above: Performed By: #### C BC #### [facility] [address] [place] [address] Dr. Kaylene Montoya LYMPH # 1.2 103/ul Normal 1.2-3.[address] [facility] Comment on above: Performed By: #### C BC #### [facility] [address] [place] [address] Dr. Kaylene Montoya Lymphocytes/100 WBC (Bld) 17.8 % Critically low 20.5-60.0 [facility] Comment on above: Performed By: #### C BC #### [facility] [address] [place] [address] Dr. Kaylene Montoya MANUAL DIFF REQ NO Normal [facility] Comment on above: Performed By: #### C BC #### [facility] [address] [address] [address] Kaylene Montoya MCH (RBC) [Entitic mass] 29.5 pg Normal 25.9-34.0 [facility] Comment on above: Performed By: #### C BC #### [facility] [address] [place] [address] Dr. Kaylene Montoya MCHC (RBC) [Mass/Vol] 32.7 g/dL Normal 29.9-35.2 [facility] Comment on above: Performed By: #### C BC #### [facility] [address] [place] [address] Dr. Kaylene Montoya MCV (RBC) [Entitic vol] 90.4 fL Normal 80.0-94.0 [facility] Comment on above: Performed By: #### C BC #### [facility] [address] [place] [address] Dr. Kaylene Montoya MONO # 0.7 103/ul Normal 0.3-0.8 [facility] Comment on above: Performed By: #### C BC #### [facility] [address] [place] [address] Dr. Kaylene Montoya Monocytes/100 WBC (Bld) 10.5 % Normal 1.7-12.0 [facility] Comment on above: Performed By: #### C BC #### [facility] [address] [place] [address] Dr. Kaylene Montoya NEUT # 4.8 103/ul Normal 1.4-6.[address] [facility] Comment on above: Performed By: #### C BC #### [facility] [address] [place] [address] Dr. Kaylene Montoya Neutrophils/100 WBC (Bld) 69.0 % Normal 43.0-75.[address] [facility] Comment on above: Performed By: #### C BC #### [facility] [address] [place] [address] Dr. Kaylene Montoya Platelet mean volume (Bld) [Entitic vol] 10.5 fL Normal 9.5-13.5 [facility] Comment on above: Performed By: #### C BC #### [facility] [address] [address] [address] Kaylene Montoya PLT 130 103/ul Critically low 150-[address] [facility] Comment on above: Performed By: #### C BC #### [facility] [address] [address] [address] Kaylene Montoya RBC 3.96 106/ul Critically low 4.70-6.[address] [facility] Comment on above: Performed By: #### C BC #### [facility] [address] [address] [address] Kaylene Montoya WBC 6.9 103/ul Normal 4.0-11.[address] [facility] Comment on above: Performed By: #### C BC #### [facility] [address] [place] [address] CSPINE WO CONon [...] Date: 2022-09-24 18:57 Normal [facility] CT HEAD WO CONon 09-24-2022 CT HEAD [...] Date: 2022-09-24 18:50 Normal [facility] ER URINE PROFILEon 3 Bilirubin Ql (U) Negative Normal NEGATIVE [facility] Comment on above: Performed By: #### P TT, PT #### [facility] [address] [place] [address] Dr. Kaylene Montoya Clarity (U) CLEAR Normal CLEAR [facility] Comment on above: Performed By: #### P TT, PT #### [facility] [address] [place] [address] Dr. Kaylene Montoya Color (U) LT. YELLOW Normal YELLOW [facility] Comment on above: Performed By: #### P TT, PT #### [facility] [address] [place] [address] Dr. Kaylene Montoya ERUAHD A micrscopic examina tion will be performed if indicated. Normal [facility] Comment on above: Performed By: #### P TT, PT #### [facility] [address] [place] [address] Dr. Kaylene Montoya Glucose Ql (U) Negative Normal NEGATIVE [facility] Comment on above: Performed By: #### P TT, PT #### [facility] [address] [place] [address] Dr. Kaylene Montoya Hemoglobin Ql (U) Negative Normal NEGATIVE [facility] Comment on above: Performed By: #### P TT, PT #### [facility] [address] [place] [address] Dr. Kaylene Montoya Ketones Ql (U) TRACE Abnormal NEGATIVE [facility] Comment on above: Performed By: #### P TT, PT #### [facility] [address] [place] [address] Dr. Kaylene Montoya LEUKOCYTES Negative Normal NEGATIVE [facility] Comment on above: Performed By: #### P TT, PT #### [facility] [address] [place] [address] Dr. Kaylene Montoya Nitrite Ql (U) Negative Normal NEGATIVE [facility] Comment on above: Performed By: #### P TT, PT #### [facility] [address] [place] [address] Dr. Kaylene Montoya pH (U) 6.0 [pH] Normal 5-9 [facility] Comment on above: Performed By: #### P TT, PT #### [facility] [address] [place] [address] Dr. Kaylene Montoya Protein (U) [Mass/Vol] 30 mg/dL Abnormal NEGAT TOMAS/ TRACE [facility] Comment on above: Performed By: #### P TT, PT #### [facility] [address] [place] [address] Dr. Kaylene Montoya SPEC GRAVITY 1.020 Normal 1.005-<=1. 025 [facility] Comment on above: Performed By: #### P TT, PT #### [facility] [address] [place] [address] Dr. Kaylene Montoya UR MICRO IND NOT INDICATED Normal [facility] Comment on above: Performed By: #### P TT, PT #### [facility] [address] [place] [address] Dr. Kaylene Montoya Urobilinogen Qn (U) 0.2 {Mary Kate'U}/dL Normal 0.2 - 1. 0 [facility] Comment on above: Performed By: #### P TT, PT #### [facility] [address] [place] [address] Dr. Kaylene Montoya PROF 14(COMP METB)on 023 Albumin [Mass/Vol] 3.2 g/dL Critically low 3.4-5.[address] [facility] Comment on above: Performed By: #### C JAZMINE, HSTROPN #### [facility] [address] [address] [address] Kaylene Montoya Albumin/Globulin [Mass ratio] 1.1 {ratio} Normal [facility] Comment on above: Performed By: #### C JAZMINE, HSTROPN #### [facility] [address] [address] [address] Kaylene Montoya ALP [Catalytic activity/Vol] 109 U/L Normal 46-116 [facility] Comment on above: Performed By: #### C JAZMINE, HSTROPN #### [facility] [address] [place] [address] Dr. Kaylene Montoya ALT [Catalytic activity/Vol] 21 U/L Normal 16-63 [facility] Comment on above: Performed By: #### C JAZMINE, HSTROPN #### [facility] [address] [place] [address] Dr. Kaylene Montoya Anion gap [Moles/Vol] 8.4 mmol/L Normal [facility] Comment on above: Performed By: #### C JAZMINE, HSTROPN #### [facility] [address] [place] [address] Dr. Kaylene Montoya AST [Catalytic activity/Vol] 40 U/L Critically high 15-37 [facility] Comment on above: Performed By: #### C JAZMINE, HSTROPN #### [facility] [address] [place] [address] Dr. Kaylene Montoya Bilirubin [Mass/Vol] 0.7 mg/dL Normal 0.2-1.0 [facility] [place] Comment on above: Performed By: #### C JAZMINE, HSTROPN #### [facility] [address] [place] [address] Dr. Kaylene Montoya Calcium [Mass/Vol] 8.7 mg/dL Normal 8.5-10.1 [facility] [place] Comment on above: Performed By: #### C JAZMINE, HSTROPN #### [facility] [address] [address] [address] Kaylene Montoya Chloride [Moles/Vol] 104 mmol/L Normal 98-[address] [facility] Comment on above: Performed By: #### C MP, HSTROPN #### [facility] [address] [address] [address] Kaylene Montoya CO2 [Moles/Vol] 28.6 mmol/L Normal 21.0-32.[address] [facility] Comment on above: Performed By: #### C MP, HSTROPN #### [facility] [address] [address] [address] Kaylene Montoya Creatinine [Mass/Vol] 1.17 mg/dL Normal 0.70-1.[address] [facility] Comment on above: Performed By: #### C MP, HSTROPN #### [facility] [address] [address] [address] Kaylene Montoya EGFR-AF BAHAMIAN >60 Normal >=[address] [facility] Comment on above: Performed By: #### C MP, HSTROPN #### [facility] [address] [address] [address] Kaylene Montoya EGFR-NON AF BAHAMIAN 59 mL/min/1.73m2 Critically low >=[address] [facility] Comment on above: Performed By: #### C MP, HSTROPN #### [facility] [address] [address] [address] Kaylene Montoya Globulin (S) [Mass/Vol] 2.8 g/dL Normal [facility] Comment on above: Performed By: #### C MP, HSTROPN #### [facility] [address] [address] [address] Kaylene Montoya Glucose [Mass/Vol] 105 mg/dL Normal 74-[address] [facility] Comment on above: Performed By: #### C MP, HSTROPN #### [facility] [address] [address] [address] Kaylene Montoya Potassium [Moles/Vol] 4.0 mmol/L Normal 3.5-5.[address] [facility] Comment on above: Performed By: #### C JAZMINE, HSTROPN #### [facility] [address] [address] [address] Kaylene Montoya Protein [Mass/Vol] 6.0 g/dL Critically low 6.4-8.[address] [facility] Comment on above: Performed By: #### C JAZMINE, HSTROPN #### [facility] [address] [place] [address] Dr. Kaylene Montoya Sodium [Moles/Vol] 137 mmol/L Normal 136-145 [facility] [place] Comment on above: Performed By: #### C JAZMINE, HSTROPN #### [facility] [address] [place] [address] Dr. Kaylene Montoya Urea nitrogen [Mass/Vol] 22.0 mg/dL Critically high 7.0-18.0 [facility] [place] Comment on above: Performed By: #### C JAZMINE, HSTROPN #### [facility] [address] [place] [address] Dr. Kaylene Montoya Urea nitrogen/Creatinine [Mass ratio] 18.8 mg/mg Normal [facility] [place] Comment on above: Performed By: #### C JAZMINE, HSTROPN #### [facility] [address] [place] [address] Dr. Kaylene Montoya TROPONIN, HIGH SENSITIVITYon 09-24-2022 HSTROP 18.6 pg/mL Normal 4.0-76.1 [facility] [place] Comment on above: Result Comment: CUT- OFF POINTS HAVE BEEN ESTABLISHED BASED ON THE FOURTH UNIVERSAL DEFINITIONS OF MYOCARDIAL INFARCTION. THE UPPER REFERENCE LIMIT (URL) OF TROPONIN, DEFINED THE 99TH PERCENTILE OF cTnI DISTRIBUTION IN A REFERENCE POPULATION, HAS BEEN CONFIRMED THE DECISION THRESHOLD FOR [place] DIAGNOSIS. Performed By: #### C JAZMINE, HSTROPN #### [facility] [address] [place] [address] Dr. Kaylene Montoya XR CHEST 1 Von [...] by: MARLENE CASEY Date: 2022-09-24 18:57 Normal [facility] [place] [facility] XR FEMUR RTon 09-24-2022 XR FEMUR RT [...] Date: 2022-09-24 18:57 Normal [facility] CT ABD/PELV W CONon 09-15-19 CT ABD/PELV [...] Date: 2022-09-15 13:39 Normal [facility] CBC AUTO DIFFon 09-05-2022 BASO # 0.0 103/ul Normal 0.0-0.1 [facility] [place] Comment on above: Performed By: #### B MP #### [facility] [address] [address] [address] Kaylene Montoya Basophils/100 WBC (Bld) 0.6 % Normal 0.2-2.0 [facility] [place] Comment on above: Performed By: #### B MP #### [facility] [address] [address] [address] Kaylene Montoya EO # 0.0 103/ul Normal 0.0-0.[address] [facility] Comment on above: Performed By: #### B MP #### [facility] [address] [address] [address] Kaylene Montoya Eosinophils/100 WBC (Bld) 0.3 % Critically low 0.9-7.[address] [facility] Comment on above: Performed By: #### B MP #### [facility] [address] [address] [address] Kaylene Montoya Erythrocyte distribution width (RBC) [Ratio] 15.9 % Critically high 11.0-15.0 [facility] [place] Comment on above: Performed By: #### B MP #### [facility] [address] [address] [address] Kaylene Montoya Hematocrit (Bld) [Volume fraction] 45.6 % Normal 42.0-54.0 [facility] [place] Comment on above: Performed By: #### B MP #### [facility] [address] [address] [address] Kaylene Montoya Hemoglobin (Bld) [Mass/Vol] 14.2 g/dL Normal 14.0-18.0 [facility] [place] Comment on above: Performed By: #### B MP #### [facility] [address] [address] [address] Kaylene Montoya IG # 0.02 10e3/ul Normal 0.00-0.03 [facility] [place] Comment on above: Performed By: #### B MP #### [facility] [address] [place] [address] Dr. Kaylene Montoya IG % 0.3 % Normal 0.0-0.5 [facility] [place] Comment on above: Performed By: #### B MP #### [facility] [address] [place] [address] Dr. Kaylene Montoya LYMPH # 1.3 103/ul Normal 1.2-3.[address] [facility] Comment on above: Performed By: #### B MP #### [facility] [address] [place] [address] Dr. Kaylene Montoya Lymphocytes/100 WBC (Bld) 18.8 % Critically low 20.5-60.0 [facility] [place] Comment on above: Performed By: #### B MP #### [facility] [address] [place] [address] Dr. Kaylene Montoya MANUAL DIFF REQ NO Normal [facility] Comment on above: Performed By: #### B MP #### [facility] [address] [place] [address] Dr. Kaylene Montoya MCH (RBC) [Entitic mass] 29.2 pg Normal 25.9-34.[address] [facility] Comment on above: Performed By: #### B MP #### [facility] [address] [place] [address] Dr. Kaylene Montoya MCHC (RBC) [Mass/Vol] 31.1 g/dL Normal 29.9-35.[address] [facility] Comment on above: Performed By: #### B MP #### [facility] [address] [address] [address] Kaylene Montoya MCV (RBC) [Entitic vol] 93.6 fL Normal 80.0-94.0 [facility] [place] Comment on above: Performed By: #### B MP #### [facility] [address] [address] [address] Kaylene Montoya MONO # 0.7 103/ul Normal 0.3-0.[address] [facility] Comment on above: Performed By: #### B MP #### [facility] [address] [address] [address] Kaylene Montoya Monocytes/100 WBC (Bld) 9.8 % Normal 1.7-12.0 [facility] [place] Comment on above: Performed By: #### B MP #### [facility] [address] [place] [address] Dr. Kaylene Montoya NEUT # 4.9 103/ul Normal 1.4-6.5 [facility] [place] Comment on above: Performed By: #### B MP #### [facility] [address] [place] [address] Dr. Kaylene Montoya Neutrophils/100 WBC (Bld) 70.2 % Normal 43.0-75.0 [facility] [place] Comment on above: Performed By: #### B MP #### [facility] [address] [place] [address] Dr. Kaylene Montoya Platelet mean volume (Bld) [Entitic vol] 10.6 fL Normal 9.5-13.[address] [facility] Comment on above: Performed By: #### B MP #### [facility] [address] [place] [address] Dr. Kaylene Montoya PLT 168 103/ul Normal 150-[address] [facility] Comment on above: Performed By: #### B MP #### [facility] [address] [place] [address] Dr. Kaylene Montoya RBC 4.87 106/ul Normal 4.70-6.[address] [facility] Comment on above: Performed By: #### B MP #### [facility] [address] [place] [address] Dr. Kaylene Montoya WBC 6.9 103/ul Normal 4.0-11.0 [facility] [place] Comment on above: Performed By: #### B MP #### [facility] [address] [place] [address] Dr. Kaylene Montoya FREE T3on 09-05-2022 FREE T3 1.37 pg/mlL Critically low 2.18-3.98 [facility] [place] Comment on above: Performed By: #### P TT, PT #### [facility] [address] [place] [address] Dr. Kaylene Montoya FREE T4on 09-05-2022 Free T4 [Mass/Vol] 1.13 ng/dL Normal 0.76-1.46 [facility] [place] Comment on above: Performed By: #### F T4 #### [facility] [address] [place] [address] Dr. Kaylene Montoya PROF 14(COMP METB)on 023 Albumin [Mass/Vol] 3.9 g/dL Normal 3.4-5.0 [facility] [place] Comment on above: Performed By: #### P TT, PT #### [facility] [address] [place] [address] Dr. Kaylene Montoya Albumin/Globulin [Mass ratio] 1.3 {ratio} Normal [facility] [place] Comment on above: Performed By: #### P TT, PT #### [facility] [address] [place] [address] Dr. Kaylene Montoya ALP [Catalytic activity/Vol] 81 U/L Normal 46-[address] [facility] Comment on above: Performed By: #### P TT, PT #### [facility] [address] [place] [address] Dr. Kaylene Montoya ALT [Catalytic activity/Vol] 10 U/L Critically low 16-[address] [facility] Comment on above: Performed By: #### P TT, PT #### [facility] [address] [place] [address] Dr. Kaylene Montoya Anion gap [Moles/Vol] 10.7 mmol/L Normal [facility] Comment on above: Performed By: #### P TT, PT #### [facility] [address] [address] [address] Kaylene Montoya AST [Catalytic activity/Vol] 16 U/L Normal 15-37 [facility] [place] Comment on above: Performed By: #### P TT, PT #### [facility] [address] [address] [address] Kaylene Montoya Bilirubin [Mass/Vol] 0.8 mg/dL Normal 0.2-1.0 [facility] [place] Comment on above: Performed By: #### P TT, PT #### [facility] [address] [address] [address] Kaylene Montoya Calcium [Mass/Vol] 9.4 mg/dL Normal 8.5-10.1 [facility] [place] Comment on above: Performed By: #### P TT, PT #### [facility] [address] [place] [address] Dr. Kaylene Montoya Chloride [Moles/Vol] 100 mmol/L Normal 98-107 [facility] [place] Comment on above: Performed By: #### P TT, PT #### [facility] [address] [place] [address] Dr. Kaylene Montoya CO2 [Moles/Vol] 31.6 mmol/L Normal 21.0-32.0 [facility] [place] Comment on above: Performed By: #### P TT, PT #### [facility] [address] [place] [address] Dr. Kaylene Montoya Creatinine [Mass/Vol] 1.02 mg/dL Normal 0.70-1.30 [facility] [place] Comment on above: Performed By: #### P TT, PT #### [facility] [address] [place] [address] Dr. Kaylene Montoya EGFR-AF BAHAMIAN >60 Normal >=[address] [facility] Comment on above: Performed By: #### P TT, PT #### [facility] [address] [address] [address] Kaylene Montoya EGFR-NON AF BAHAMIAN >60 Normal >=[address] [facility] Comment on above: Performed By: #### P TT, PT #### [facility] [address] [address] [address] Kaylene Montoya Globulin (S) [Mass/Vol] 3.0 g/dL Normal [facility] Comment on above: Performed By: #### P TT, PT #### [facility] [address] [address] [address] Kaylene Montoya Glucose [Mass/Vol] 84 mg/dL Normal 74-[address] [facility] Comment on above: Performed By: #### P TT, PT #### [facility] [address] [place] [address] Dr. Kaylene Montoya Potassium [Moles/Vol] 4.3 mmol/L Normal 3.5-5.[address] [facility] Comment on above: Performed By: #### P TT, PT #### [facility] [address] [place] [address] Dr. Kaylene Montoya Protein [Mass/Vol] 6.9 g/dL Normal 6.4-8.2 [facility] [place] [facility] Comment on above: Performed By: #### P TT, PT #### [facility] [address] [place] [address] Dr. Kaylene Montoya Sodium [Moles/Vol] 138 mmol/L Normal 136-145 [facility] [place] Comment on above: Performed By: #### P TT, PT #### [facility] [address] [place] [address] Dr. Kaylene Montoya Urea nitrogen [Mass/Vol] 21.0 mg/dL Critically high 7.0-18.0 [facility] [place] Comment on above: Performed By: #### P TT, PT #### [facility] [address] [place] [address] Dr. Kaylene Montoya Urea nitrogen/Creatinine [Mass ratio] 20.6 mg/mg Normal [facility] Comment on above: Performed By: #### P TT, PT #### [facility] [address] [place] [address] Dr. Kaylene Montoya TSHon 09-05-2022 TSH 1.427 uIU/mL Normal 0.358-3.74 0 [facility] [place] [facility] Comment on above: Performed By: #### P TT, PT #### [facility] [address] [place] [address] Dr. Kaylene Montoya Covid-19 PCR ([facility])on 06-30 SARS-CoV-2 (COVID-19) RNA RENU+probe Ql (Unsp spec) Not detected Normal NOT DETECTED [facility] Comment on above: Result Comment: This test is not yet approved or cleared by the [place] FDA. When there are no FDA-approved or cleared tests available, and other criteria are met, FDA can make tests available under an emergency access mechanism called an Emergency Use Authorization (EUA). The EUA for this test is supported by the [place] of Health and Human Service's (HHS's) declaration [...] By: #### F T4 #### [facility] [address] [place] [address] Dr. Kaylene Montoya INFLUENZA A AND B AGon 07-18 [facility] SEE BELOW Normal [facility] Comment on above: Result Comment: Nega tive for Flu A protein angiten. Infection due to Flu A cannot be ruled out. Flu A angiten in the sample may be below the detection limit of the test. Performed By: #### F T4 #### [facility] [address] [place] [address] Dr. Kaylene Montoya [facility] BEL[facility] Normal [facility] Comment on above: Result Comment: Nega tive for Flu B protein antigen. Infection due to Flu B cannot be ruled out. Flu B antigen in the sample may be below the detection limit of the test. Performed By: #### F T4 #### [facility] [address] [address] [address] Kaylene Montoya INFLUENZA A AG Negative Normal NEGATIVE SEE COMMENT [facility] Comment on above: Performed By: #### F T4 #### [facility] [address] [address] [address] Kaylene Montoya INFLUENZA B AG Negative Normal NEGATIVE SEE COMMENT [facility] Comment on above: Performed By: #### F T4 #### [facility] [address] [place] [address] Dr. Kaylene Montoya INTERNAL CONTROLS Within Normal Limits Normal Wi thin Normal Limits [facility] Comment on above: Performed By: #### F T4 #### [facility] [address] [place] [address] Dr. Kaylene Montoya Office Visit (Cardiology)on 02-24-2022 Follow-up visit Diagnoses/Problems Assessed Paroxysmal atrial fibrillation (427.31) (I48.0) Anticoagulated (V58.61) (Z79.01) Former smoker (V15.82) (Z87.891) Body mass index (BMI) of 24.0 to 24.9 in adult (V85.1) (Z68.24) Orders Paroxysmal atrial fibrillation Renew: Aspirin EC 81 MG Oral Tablet Delayed Release; 1 tablet twice weekly SocHx: Former smoker Tobacco Use Screening; Status:Complete; Done: [id number] Patient Instructions Please bring all medicines, vitamins, [...] 2-3 servings a day Former smoker (V15.82) (Z87.251) No alcohol use No illicit drug use [...] Recorded: 24Feb2022 09:10AM Heart Rate60, L Radial [id number], LUE, Sitting Yieolaqmr57, LUE, Sitting Height5 ft 8 in Ockhes655 lb BMI Cbfahcveke16.63 kg/m2 BSA Calculated1.87 Tobacco Useb) No Falls [...] insight i (more content not included)... Normal [facility] Tobacco Screening.on Fall risk assessment b) One or more fall s in the last year [facility] [employer] 600 DO Work Phone: Tobacco use status [facility] b) No [facility] [employer] 600 DO Work Phone: BNPon 12-23-2021 Natriuretic peptide B (Bld) [Mass/Vol] 641.0 pg/mL Normal <=1,800.0 [facility] Comment on above: Performed By: #### F T4 #### [facility] [address] [address] [address] Kaylene Montoya CARDIAC CRISTIAN ADMITon CK [Catalytic activity/Vol] 65 U/L Normal 39-308 [facility] Comment on above: Performed By: #### F T4 #### [facility] [address] [address] [address] Kaylene Montoya CK.MB [Mass/Vol] 2.20 ng/mL Normal <=3.60 [facility] [place] [facility] Comment on above: Performed By: #### F T4 #### [facility] [address] [place] [address] Dr. Kaylene Montoya HSTROP 13.9 pg/mL Normal 4.0-76.1 [facility] [place] [facility] Comment on above: Result Comment: CUT- OFF POINTS HAVE BEEN ESTABLISHED BASED ON THE FOURTH UNIVERSAL DEFINITIONS OF MYOCARDIAL INFARCTION. THE UPPER REFERENCE LIMIT (URL) OF TROPONIN, DEFINED THE 99TH PERCENTILE OF cTnI DISTRIBUTION IN A REFERENCE POPULATION, HAS BEEN CONFIRMED THE DECISION THRESHOLD FOR [place] DIAGNOSIS. Performed By: #### F T4 #### [facility] [address] [place] [address] Dr. Kaylene Montoya LEOPOLDO 83 ng/mL Normal 16-96 [facility] Comment on above: Performed By: #### F T4 #### [facility] [address] [place] [address] Dr. Kaylene Montoya CBC AUTO DIFFon 12-23-2021 BASO # 0.0 103/ul Normal 0.0-0.1 [facility] [place] [facility] Comment on above: Performed By: #### L ACT #### [facility] [address] [place] [address] Dr. Kaylene Montoya Basophils/100 WBC (Bld) 0.4 % Normal 0.2-2.0 [facility] [place] [facility] Comment on above: Performed By: #### L ACT #### [facility] [address] [place] [address] Dr. Kaylene Montoya EO # 0.2 103/ul Normal 0.0-0.7 [facility] [place] [facility] Comment on above: Performed By: #### L ACT #### [facility] [address] [place] [address] Dr. Kaylene Montoya Eosinophils/100 WBC (Bld) 2.9 % Normal 0.9-7.0 [facility] Comment on above: Performed By: #### L ACT #### [facility] [address] [place] [address] Dr. Kaylene Montoya Erythrocyte distribution width (RBC) [Ratio] 14.5 % Normal 11.0-15.0 [facility] [place] [facility] Comment on above: Performed By: #### L ACT #### [facility] [address] [place] [address] Dr. Kaylene Montoya Hematocrit (Bld) [Volume fraction] 46.6 % Normal 42.0-54.0 [facility] [place] [facility] Comment on above: Performed By: #### L ACT #### [facility] [address] [place] [address] Dr. Kaylene Montoya Hemoglobin (Bld) [Mass/Vol] 15.0 g/dL Normal 14.0-18.0 [facility] [place] [facility] Comment on above: Performed By: #### L ACT #### [facility] [address] [place] [address] Dr. Kaylene Montoya IG # 0.06 10e3/ul Critically high 0.00-0.03 [facility] [place] [facility] Comment on above: Performed By: #### L ACT #### [facility] [address] [place] [address] Dr. Kaylene Montoya IG % 0.8 % Critically high 0.0-0.5 [facility] [place] [facility] Comment on above: Performed By: #### L ACT #### [facility] [address] [place] [address] Dr. Kaylene Montoya LYMPH # 1.1 103/ul Critically low 1.2-3.8 [facility] [place] Comment on above: Performed By: #### L ACT #### [facility] [address] [place] [address] Dr. Kaylene Montoya Lymphocytes/100 WBC (Bld) 14.9 % Critically low 20.5-60.0 [facility] [place] [facility] Comment on above: Performed By: #### L ACT #### [facility] [address] [place] [address] Dr. Kaylene Montoya MANUAL DIFF REQ NO Normal [facility] [place] Comment on above: Performed By: #### L ACT #### [facility] [address] [place] [address] Dr. Kaylene Montoya MCH (RBC) [Entitic mass] 29.9 pg Normal 25.9-34.0 [facility] [place] [facility] Comment on above: Performed By: #### L ACT #### [facility] [address] [address] [address] Kaylene Montoya MCHC (RBC) [Mass/Vol] 32.2 g/dL Normal 29.9-35.2 [facility] [place] [facility] Comment on above: Performed By: #### L ACT #### [facility] [address] [address] [address] Kaylene Montoya MCV (RBC) [Entitic vol] 93.0 fL Normal 80.0-94.0 [facility] [place] [facility] Comment on above: Performed By: #### L ACT #### [facility] [address] [address] [address] Kaylene Montoya MONO # 1.3 103/ul Critically high 0.3-0.8 [facility] [place] [facility] Comment on above: Performed By: #### L ACT #### [facility] [address] [address] [address] Kaylene Montoya Monocytes/100 WBC (Bld) 16.5 % Critically high 1.7-12.0 [facility] [place] [facility] Comment on above: Performed By: #### L ACT #### [facility] [address] [address] [address] Kaylene Montoya NEUT # 4.9 103/ul Normal 1.4-6.5 [facility] [place] [facility] Comment on above: Performed By: #### L ACT #### [facility] [address] [address] [address] Kaylene Montoya Neutrophils/100 WBC (Bld) 64.5 % Normal 43.0-75.[address] [facility] Comment on above: Performed By: #### L ACT #### [facility] [address] [address] [address] Kaylene Montoya Platelet mean volume (Bld) [Entitic vol] 9.8 fL Normal 9.5-13.5 [facility] Comment on above: Performed By: #### L ACT #### [facility] [address] [address] [address] Kaylene Montoya PLT 171 103/ul Normal 150-[address] [facility] [facility] Comment on above: Performed By: #### L ACT #### [facility] [address] [place] [address] Dr. Kaylene Montoya RBC 5.01 106/ul Normal 4.70-6.[address] [facility] Comment on above: Performed By: #### L ACT #### [facility] [address] [place] [address] Dr. Kaylene Montoya WBC 7.7 103/ul Normal 4.0-11.[address] [facility] Comment on above: Performed By: #### L ACT #### [facility] [address] [place] [address] Dr. Kaylene Montoya LACTATE/LACTIC ACIDon 2021 Lactate [Moles/Vol] 0.8 mmol/L Normal 0.4-1.9 [facility] Comment on above: Performed By: #### L ACT #### [facility] [address] [place] [address] Dr. Kaylene Montoya PROF 14(COMP METB)on 022 Albumin [Mass/Vol] 3.8 g/dL Normal 3.4-5.0 [facility] Comment on above: Performed By: #### F T4 #### [facility] [address] [place] [address] Dr. Kaylene Montoya Albumin/Globulin [Mass ratio] 1.0 {ratio} Normal [facility] Comment on above: Performed By: #### F T4 #### [facility] [address] [place] [address] Dr. Kaylene Montoya ALP [Catalytic activity/Vol] 109 U/L Normal 46-[address] [facility] Comment on above: Performed By: #### F T4 #### [facility] [address] [place] [address] Dr. Kaylene Montoya ALT [Catalytic activity/Vol] 7 U/L Critically low 16-[address] [facility] Comment on above: Performed By: #### F T4 #### [facility] [address] [place] [address] Dr. Kaylene Montoya Anion gap [Moles/Vol] 9.6 mmol/L Normal [facility] Comment on above: Performed By: #### F T4 #### [facility] [address] [address] [address] Kaylene Montoya AST [Catalytic activity/Vol] 14 U/L Critically low 15-37 [facility] Comment on above: Performed By: #### F T4 #### [facility] [address] [address] [address] Kaylene Montoya Bilirubin [Mass/Vol] 0.7 mg/dL Normal 0.2-1.0 [facility] Comment on above: Performed By: #### F T4 #### [facility] [address] [address] [address] Kaylene Montoya Calcium [Mass/Vol] 9.2 mg/dL Normal 8.5-10.1 [facility] Comment on above: Performed By: #### F T4 #### [facility] [address] [place] [address] Dr. Kaylene Montoya Chloride [Moles/Vol] 104 mmol/L Normal 98-107 [facility] Comment on above: Performed By: #### F T4 #### [facility] [address] [place] [address] Dr. Kaylene Montoya CO2 [Moles/Vol] 31.6 mmol/L Normal 21.0-32.0 [facility] Comment on above: Performed By: #### F T4 #### [facility] [address] [place] [address] Dr. Kaylene Montoya Creatinine [Mass/Vol] 1.05 mg/dL Normal 0.70-1.[address] [facility] Comment on above: Performed By: #### F T4 #### [facility] [address] [place] [address] Dr. Kaylene Montoya EGFR-AF BAHAMIAN >60 Normal >=[address] [facility] Comment on above: Performed By: #### F T4 #### [facility] [address] [place] [address] Dr. Kaylene Montoya EGFR-NON AF BAHAMIAN >60 Normal >=60 [facility] Comment on above: Performed By: #### F T4 #### [facility] [address] [place] [address] Dr. Kaylene Montoya Globulin (S) [Mass/Vol] 3.7 g/dL Normal [facility] Comment on above: Performed By: #### F T4 #### [facility] [address] [address] [address] Kaylene Montoya Glucose [Mass/Vol] 97 mg/dL Normal 74-[address] [facility] Comment on above: Performed By: #### F T4 #### [facility] [address] [address] [address] Kaylene Montoya Potassium [Moles/Vol] 4.2 mmol/L Normal 3.5-5.[address] [facility] Comment on above: Performed By: #### F T4 #### [facility] [address] [address] [address] Kaylene Montoya Protein [Mass/Vol] 7.5 g/dL Normal 6.4-8.[address] [facility] Comment on above: Performed By: #### F T4 #### [facility] [address] [address] [address] Kaylene Montoya Sodium [Moles/Vol] 141 mmol/L Normal 136-[address] [facility] Comment on above: Performed By: #### F T4 #### [facility] [address] [address] [address] Kaylene Montoya Urea nitrogen [Mass/Vol] 24.0 mg/dL Critically high 7.0-18.0 [facility] Comment on above: Performed By: #### F T4 #### [facility] [address] [address] [address] Kaylene Montoya Urea nitrogen/Creatinine [Mass ratio] 22.9 mg/mg Normal [facility] Comment on above: Performed By: #### F T4 #### [facility] [address] [place] [address] Dr. Kaylene Montoya PROTIMEon 12-23-2021 INR Coag (PPP) [Relative time] 1.13 {INR} Normal [facility] Comment on above: Performed By: #### P TT, PT #### [facility] [address] [place] [address] Dr. Kaylene Montoya INR GUIDELINES SEE BELOW Normal [facility] Comment on above: Result Comment: JOSE RED INR: 2.0 - 3.0 CONDITIONS NOT LISTED BELOW 2.5 - 3.5 FOR PROSTHETIC HEART VALVE REPLACEMENT 2.5 - 3.5 RECURRENT THROMBOSIS Performed By: #### P TT, PT #### [facility] [address] [place] [address] Dr. Kaylene Montoya PT Coag (PPP) [Time] 12.1 s Critically high 9.0-11.6 [facility] Comment on above: Performed By: #### P TT, PT #### [facility] [address] [address] [address] Kaylene Montoya PTTon 12-23-2021 aPTT Coag (Bld) [Time] 33.4 s Normal 22.3-36.[address] [facility] Comment on above: Performed By: #### P TT, PT #### [facility] [address] [place] [address] Dr. Kaylene Montoya TROPONIN, HIGH SENSITIVITYon 12-23-2021 HSTROP 11.0 pg/mL Normal 4.0-76.1 [facility] Comment on above: Result Comment: CUT- OFF POINTS HAVE BEEN ESTABLISHED BASED ON THE FOURTH UNIVERSAL DEFINITIONS OF MYOCARDIAL INFARCTION. THE UPPER REFERENCE LIMIT (URL) OF TROPONIN, DEFINED THE 99TH PERCENTILE OF cTnI DISTRIBUTION IN A REFERENCE POPULATION, HAS BEEN CONFIRMED THE DECISION THRESHOLD FOR [place] DIAGNOSIS. Performed By: #### F T4 #### [facility] [address] [place] [address] Dr. Kaylene Montoya XR CHEST 1 Von [...] Date: 2021-12-23 09:12 [address] [facility] Cardiovasc Arrhythmia Result son 10-13-2021 Cardiovasc Arrhythmia Results Reason For Visit Reason for Visit: Holter Monitor: MAGDALENO is here for the application of a 24 hour Holter monitor. Ordering Physician: Dr. Edel Cesar MD Diagnosis: PAF NO equipment agreement signed. MAGDALENO understands monitor is to be returned on: 10/14/2021 Monitor number [id number] applied. Holter monitor returned and downloaded. holter [...] Appointments Date/TimeProviderSpecialty Site 12/29/2021 09:40 AMEdel Cesar, [id number] [facility] [address] DO Signatures Electronically signed by : Daphne Tapia MA; Oct 19 2021 4:22PM EST (Author) Electronically signed by : Courtney Fleming MD; Oct 20 2021 5:05PM EST (Author) Normal [facility] Office Visit (Cardiology)on 10-08-2021 Follow-up visit Diagnoses/Problems [...] Screening.on 022 Adult depression screening assessment No [facility] Work Phone: Fall risk assessment b) One or more fall s in the last year [facility] Work Phone: Tobacco use status CPHS b) No [facility] Work Phone: Vital Signs Date Time Vital Sign Value Performing Clinician Facility 07-23-2023 14:00-0500 Body temperature 97.2 [degF] MD Christo Saab Work Phone: [facility] 07-23-2023 14:00-0500 Diastolic blood pressure 76 mm[Hg] MD Christo Saab Work Phone: [facility] 07-23-2023 14:00-0500 Heart rate 70 /min MD Christo Saab Work Phone: [facility] 07-23-2023 14:00-0500 Respiratory rate 16 /min MD Christo Saab Work Phone: [facility] 07-23-2023 14:00-0500 SaO2% (BldA) [Mass fraction] 100 % MD Christo Saab Work Phone: [facility] 07-23-2023 14:00-0500 Systolic blood pressure 131 mm[Hg] MD Christo Saab Work Phone: [facility] 07-23-2023 06:00-0500 Body weight 61 kg MD Christo Saab Work Phone: [facility] 07-21-2023 16:34-0500 Body height 172.72 cm MD Christo Saab Work Phone: [facility] 07-21-2023 16:00-0500 Diastolic blood pressure 68 mm[Hg] MD Christo Saab Work Phone: [facility] 07-21-2023 16:00-0500 Heart rate 69 /min MD Christo Saab Work Phone: [facility] 07-21-2023 16:00-0500 Respiratory rate 16 /min MD Christo aSab Work Phone: [facility] 07-21-2023 16:00-0500 Systolic blood pressure 115 mm[Hg] MD Christo Saab Work Phone: [facility] 07-21-2023 14:30-0500 SaO2% (BldA) [Mass fraction] 99 % MD Christo Saab Work Phone: [facility] 07-21-2023 11:36-0500 Body height 172.72 cm MD Christo Saab Work Phone: [facility] 07-21-2023 11:36-0500 Body weight 58.05 kg MD Christo Saab Work Phone: [facility] 07-21-2023 11:35-0500 Body temperature 97.7 [degF] MD Christo Saab Work Phone: [facility] 07-13-2023 14:30-0500 Body height 172.7 cm [facility] 07-13-2023 14:30-0500 Body mass index (BMI) [Ratio] 21.13 kg/m2 [facility] 07-13-2023 14:30-0500 Body weight 63.05 kg [facility] 07-13-2023 14:30-0500 Diastolic blood pressure 82 mm[Hg] [facility] 07-13-2023 14:30-0500 Heart rate 70 /min [facility] 07-13-2023 14:30-0500 Systolic blood pressure 118 mm[Hg] [facility] 07-05-2023 14:33-0500 Body height 170.2 cm Edel Cesar MD Work Phone: [facility] 07-05-2023 14:33-0500 Body mass index (BMI) [Ratio] 21.61 kg/m2 Edel Cesar MD Work Phone: [facility] 07-05-2023 14:33-0500 Body weight 62.6 kg Edel Cesar MD Work Phone: [facility] 07-05-2023 14:33-0500 Diastolic blood pressure 60 mm[Hg] Edel Cesar MD Work Phone: [facility] 07-05-2023 14:33-0500 Heart rate 60 /min Edel Cesar MD Work Phone: [facility] 07-05-2023 14:33-0500 Systolic blood pressure 122 mm[Hg] Edel Cesar MD Work Phone: [facility] 05-05-2023 10:52-0400 Body temperature 97.11 [degF] Efren Carbajal DO Work Phone: [facility] 05-05-2023 10:52-0400 Body weight 62.6 kg Efren Carbajal DO Work Phone: [facility] 05-05-2023 10:52-0400 Diastolic blood pressure 59 mm[Hg] Efren Carbajal DO Work Phone: [facility] 05-05-2023 10:52-0400 Heart rate 82 /min Efren Carbajal DO Work Phone: [facility] 05-05-2023 10:52-0400 SaO2% (BldA) [Mass fraction] 97 % Efren Carbajal DO Work Phone: [facility] 05-05-2023 10:52-0400 Systolic blood pressure 120 mm[Hg] Efren Carbajal DO Work Phone: [facility] 12-21-2022 15:05-0400 Body height 172.72 cm Amy Julesight Work Phone: [facility] 600 DO Work Phone: 12-21-2022 15:05-0400 Body mass index (BMI) [Ratio] 21.74 kg/m2 Amy Julesight Work Phone: [facility] 600 DO Work Phone: 12-21-2022 15:05-0400 Body surface area Derived from formula 1.77 m2 Amy Zuñiga Work Phone: [facility] 600 DO Work Phone: 12-21-2022 15:05-0400 Body weight 64.86 kg Amy Jluesight Work Phone: [facility] 600 DO Work Phone: 12-21-2022 15:05-0400 Diastolic blood pressure 78 mm[Hg] Amy Julesight Work Phone: [facility] 600 DO Work Phone: 12-21-2022 15:05-0400 Heart rate 84 /min Amy Zuñiga Work Phone: [facility] 600 DO Work Phone: 12-21-2022 15:05-0400 Systolic blood pressure 132 mm[Hg] Amy Julesight Work Phone: [facility] 600 DO Work Phone: 11-25-2022 09:59-0400 Body height 172.72 cm Amy Zuñiga Work Phone: [facility] 250 DO Work Phone: 11-25-2022 09:59-0400 Body mass index (BMI) [Ratio] 23.57 kg/m2 Amy Zuñiga Work Phone: [facility] 250 DO Work Phone: 11-25-2022 09:59-0400 Body surface area Derived from formula 1.83 m2 Amy Zuñiga Work Phone: [facility] 250 DO Work Phone: 11-25-2022 09:59-0400 Body weight 70.31 kg Amy Zuñiga Work Phone: [facility] [place] 250 DO Work Phone: 11-25-2022 09:59-0400 Diastolic blood pressure 74 mm[Hg] Amy Zuñiga Work Phone: [facility] [employer] 250 DO Work Phone: 11-25-2022 09:59-0400 Heart rate 70 /min Amy Zuñiga Work Phone: [facility] [employer] 250 DO Work Phone: 11-25-2022 09:59-0400 Systolic blood pressure 130 mm[Hg] Amy Zuñiga Work Phone: [facility] [employer] [place] 250 DO Work Phone: 10-05-2022 12:45-0500 Body weight 70.53 kg Ayana Missler Other [employer] Other 10-05-2022 12:45-0500 Diastolic blood pressure 77 mm[Hg] Ayana Missler Other [employer] Other 10-05-2022 12:45-0500 Respiratory rate 18 /min Ayana Missler Other [employer] Other 10-05-2022 12:45-0500 SaO2% (BldA) [Mass fraction] 98 % Ayana Missler Other [employer] Other 10-05-2022 12:45-0500 Systolic blood pressure 126 mm[Hg] Ayana Miles Other [employer] Other 10-03-2022 11:49-0500 Body height 172.72 cm Amy Zuñiga Work Phone: [facility] [place] 250 DO Work Phone: 10-03-2022 11:49-0500 Body mass index (BMI) [Ratio] 23.57 kg/m2 Amy Zuñiga Work Phone: [facility] [place] 250 DO Work Phone: 10-03-2022 11:49-0500 Body surface area Derived from formula 1.83 m2 Amy Zuñiga Work Phone: [facility] [place] 250 DO Work Phone: 10-03-2022 11:49-0500 Body temperature 98.7 [degF] Amy Zuñiga Work Phone: [facility] [place] 250 DO Work Phone: 10-03-2022 11:49-0500 Body weight 70.31 kg Amy Zuñiga Work Phone: [facility] [place] 250 DO Work Phone: 10-03-2022 11:49-0500 Diastolic blood pressure 86 mm[Hg] Amy Zuñiga Work Phone: [facility] 250 DO Work Phone: 10-03-2022 11:49-0500 Heart rate 66 /min Amy Zuñiga Work Phone: [facility] 250 DO Work Phone: 10-03-2022 11:49-0500 Systolic blood pressure 146 mm[Hg] Amy Zuñiga Work Phone: [facility] [place] 250 DO Work Phone: 09-27-2022 08:11-0500 Diastolic blood pressure 95 mm[Hg] MD Amy Zuñiga Work Phone: [facility] 09-27-2022 08:11-0500 Heart rate 69 /min MD Amy Zuñiga Work Phone: [facility] 09-27-2022 08:11-0500 Respiratory rate 20 /min MD Amy Zuñiga Work Phone: [facility] 09-27-2022 08:11-0500 SaO2% (BldA) [Mass fraction] 98 % MD Amy Zuñiga Work Phone: [facility] 09-27-2022 08:11-0500 Systolic blood pressure 146 mm[Hg] MD Amy Zuñiga Work Phone: [facility] 09-27-2022 03:00-0500 Body temperature 98.2 [degF] MD Amy Zuñiga Work Phone: [facility] 09-26-2022 15:35-0500 Body height 172.72 cm MD Amy Zuñiga Work Phone: [facility] 09-26-2022 15:35-0500 Body mass index (BMI) [Ratio] 23.1 kg/m2 MD Amy Zuñiga Work Phone: [facility] 09-26-2022 15:35-0500 Body weight 69.1 kg MD Amy Zuñiga Work Phone: [facility] 09-26-2022 00:00-0500 65 1 Cesar Luz Elena Work Phone: [facility] 250 DO Work Phone: Comment on above: [id number] 02-24-2022 09:10-0400 Body height 172.72 cm Cesar Luz Elena Work Phone: [facility] 600 DO Work Phone: 02-24-2022 09:10-0400 Body mass index (BMI) [Ratio] 24.63 kg/m2 Cesar Henley Work Phone: [facility] 600 DO Work Phone: 02-24-2022 09:10-0400 Body surface area Derived from formula 1.87 m2 Cesar Henley Work Phone: [facility] [employer] 600 DO Work Phone: 02-24-2022 09:10-0400 Body weight 73.48 kg Cesar Luz Elena Work Phone: [facility] 600 DO Work Phone: 02-24-2022 09:10-0400 Diastolic blood pressure 68 mm[Hg] Cesar Henley Work Phone: [facility] [employer] 600 DO Work Phone: 02-24-2022 09:10-0400 Heart rate 60 /min Cesar Luz Elena Work Phone: [facility] [employer] 600 DO Work Phone: 02-24-2022 09:10-0400 Systolic blood pressure 108 mm[Hg] Cesar Henley Work Phone: [facility] [place] 600 DO Work Phone: 10-08-2021 10:41-0500 Diastolic blood pressure 70 mm[Hg] Cesar Luz Elena Work Phone: [facility] Work Phone: 10-08-2021 10:41-0500 Systolic blood pressure 142 mm[Hg] Cesar Luz Elena Work Phone: [facility] Work Phone: 10-08-2021 10:35-0500 Body height 172.72 cm Cesar Luz Elena Work Phone: [facility] Work Phone: 10-08-2021 10:35-0500 Body mass index (BMI) [Ratio] 25.54 kg/m2 Cesartata Pérezron Work Phone: [facility] Work Phone: 10-08-2021 10:35-0500 Body surface area Derived from formula 1.9 m2 Cesartata Pérezron Work Phone: [facility] Work Phone: 10-08-2021 10:35-0500 Body weight 76.2 kg Cesartata Pérezron Work Phone: [facility] Work Phone: 10-08-2021 10:35-0500 Diastolic blood pressure 70 mm[Hg] Cesartata Pérezron Work Phone: [facility] Work Phone: 10-08-2021 10:35-0500 Heart rate 57 /min Cesartata Pérezron Work Phone: [facility] Work Phone: 10-08-2021 10:35-0500 Systolic blood pressure 142 mm[Hg] Cesartata Pérezron Work Phone: [facility] Work Phone: Encounters Encounter Date Encounter Type Care Provider Facility Start: 10-24-2023 ambulatory Efren kinney DO Work Phone: [facility] Comment on above: Pain in legs Start: 10-24-2023 Patient encounter status Juan Diego Carbajal DO Work Phone: [facility] Work Phone: Start: 10-23-2023 ambulatory Efren kinney DO Work Phone: [facility] Comment on above: Legs feel like lead Start: 10-04-2023 End: 10-04-2023 ambulatory Roel Mireles Facility:[facility] Start: 09-29-2023 ambulatory Efren kinney DO Work Phone: [facility] Comment on above: Freezing up Start: 09-26-2023 End: 09-26-2023 ambulatory Christo Saab Facility:[facility] Start: 09-14-2023 ambulatory Efren Nusrat Karmen owski DO Work Phone: [facility] Comment on above: Freezing up Start: 09-08-2023 Telephone encounter Efren michael DO Work Phone: [facility] Comment on above: Clarify C/L CR Start: 09-05-2023 ambulatory Efren Nusrat Karmen owcathyi DO Work Phone: [facility] Comment on above: Medication change Start: 08-31-2023 End: 08-31-2023 ambulatory Christo Saab Facility:[facility] Start: 08-31-2023 End: 08-31-2023 ambulatory MD Christo Saab Work Phone: [facility] Work Phone: Start: 08-31-2023 End: 08-31-2023 Patient encounter procedure MD Christo Saab Work Phone: [facility] [place] Work Phone: Start: 08-29-2023 End: 08-29-2023 ambulatory AMY ZUÑIGA Facility:[facility] Start: 08-29-2023 End: 08-29-2023 Office outpatient visit 10 minutes Efren Carbajal DO Work Phone: [facility] Comment on above: Primary parkinsonism (Primary Dx); Motor fluctuations related to medication use in Parkinson's disease Start: 08-23-2023 End: 08-24-2023 ambulatory JACKLYN KELLY Facility:[facility] Start: 08-17-2023 End: 08-17-2023 ambulatory TORRIE BARAJAS Not Available Start: 08-07-2023 End: 08-08-2023 ambulatory Christo Saab Facility:[facility] Start: 07-21-2023 End: 07-23-2023 Evaluation and management of inpatient Christo Saab Facility:[facility] Start: 07-21-2023 End: 07-23-2023 Evaluation and management of inpatient MD Christo Saab Work Phone: [facility] Work Phone: Start: 07-19-2023 End: 07-20-2023 ambulatory Christo Saab Facility:[facility] Start: 07-13-2023 End: 07-13-2023 ambulatory Critical access hospital Ambulatory Start: 07-13-2023 End: 07-13-2023 Patient encounter procedure Trung Lopez MA [facility] Comment on above: Persistent atrial fi brillation (CMS/HCC) Refill Request Start: 07-10-2023 Refill Efren kinney DO Work Phone: [facility] Comment on above: Refill Request Start: 07-05-2023 End: 07-05-2023 ambulatory Critical access hospital Ambulatory Start: 07-05-2023 End: 07-05-2023 Office outpatient visit 25 minutes Edel Cesar MD Work Phone: [facility] Comment on above: Persistent atrial fi brillation (CMS/HCC) (Primary Dx); Complete heart block (CMS/HCC); Abnormal echocardiogram; Pacemaker; Pulmonary hypertension (CMS/HCC); Chronic right heart failure (CMS/HCC) Start: 07-05-2023 End: 07-05-2023 ambulatory Christo Saab Facility:[facility] Start: 07-05-2023 End: 07-05-2023 ambulatory MD Christo Saab Work Phone: [facility] Work Phone: Start: 07-05-2023 End: 07-05-2023 Patient encounter procedure MD Christo Saab Work Phone: [facility]-Pacemaker Check Start: 06-26-2023 ambulatory Lars Sebastian [facility] Comment on above: [facility] - Jo Ann ent Assistance ([place] ); Insurance Authorization ([place] Appro[place] ) Start: 06-21-2023 End: 06-22-2023 ambulatory [facility] Start: 06-20-2023 End: 06-20-2023 ambulatory AMY ZUÑIGA Facility:[facility] Start: 06-20-2023 End: 06-20-2023 Office outpatient visit 10 minutes Efren Carbajal DO Work Phone: [facility] Comment on above: Motor fluctuations r elated to medication use in Parkinson's disease Start: 05-30-2023 End: 05-31-2023 ambulatory Christo Saab Facility[facility] Start: 05-30-2023 End: 05-30-2023 Lab Drop off Christo Saab [facility] Start: 05-30-2023 End: 05-31-2023 ambulatory Christo Saab Facility:[facility] Start: 05-05-2023 End: 05-06-2023 ambulatory EFREN CARBAJAL Facility:[facility] Start: 05-05-2023 End: 05-05-2023 ambulatory AMY ZUÑIGA Facility:[facility] Start: 05-05-2023 End: 05-05-2023 Office outpatient visit 25 minutes Efren Carbajal DO Work Phone: [facility]rology Comment on above: Primary parkinsonism (Primary Dx); Fatigue, unspecified type Start: 04-05-2023 End: 04-05-[address] Amy Zuñiga Facility:[id number] Start: 04-05-2023 End: 04-05-2023 ambulatory MD Christo Saab Work Phone: [facility] Work Phone: Start: 04-05-2023 End: 04-05-2023 Patient encounter procedure MD Christo Saab Work Phone: [facility]-Pacemaker Check Start: 03-20-2023 End: 03-21-2023 ambulatory Christo Saab Facility:[facility] Start: 02-20-2023 End: 02-21-2023 ambulatory Christo Saab Facility:[facility] Start: 01-30-2023 Refill Efren kinney DO Work Phone: [facility] Comment on above: Refill Request Start: 01-06-2023 FUV, Provider: Edel Cesar, Status: Pen, Time: 11:30 AM Amy Zuñiga Work Phone: [facility] 600 DO Work Phone: Start: 01-06-2023 ambulatory Dr. Edel Cesar Facility: Start: 01-04-2023 Chart Update Amy Zuñiga Work Phone: [facility] 600 DO Work Phone: Start: 12-29-2022 End: 12-29-[address] Amy Zuñiga Facility:[id number] Start: 12-29-2022 End: 12-29-2022 ambulatory MD Amy Zuñiga Work Phone: [facility] Work Phone: Start: 12-29-2022 End: 12-29-2022 Patient encounter procedure MD Amy Zuñiga Work Phone: [facility]-Pacemaker Check Start: 12-21-[address] Edel Cesar Facility: Start: 12-19-2022 End: 12-20-2022 ambulatory Christo Saab Facility:[facility] [place] Start: 12-13-2022 End: 12-13-[address] Amy Zuñiga Facility:[id number] Start: 12-13-2022 End: 12-13-2022 Admission to same day surgery center MD Amy Zuñiga Work Phone: [facility]-Procedure Outpatient Work Phone: Start: 12-13-2022 End: 12-13-2022 ambulatory MD Amy Zuñiga Work Phone: [facility] Work Phone: Start: 12-08-2022 End: 12-09-[address] EDEL CESAR Facility:H1 Start: 11-29-2022 End: 11-29-2022 ambulatory Efren Carbajal DO Work Phone: [facility] Comment on above: Motor fluctuations r elated to medication use in Parkinson's disease (HCC) (Primary Dx); Primary parkinsonism (HCC) Start: 11-29-2022 End: 11-29-2022 Telemedicine consultation with patient Efren Garcia Solomon DO Work Phone: [facility] Start: 11-28-2022 End: 11-29-2022 ambulatory Christ[facility]ab [facility] Start: 11-28-2022 End: 11-29-2022 ambulatory CAITLYN Schwartz Facility:H1 Start: 11-25-[address] Edel Cesar Facility: Start: 11-25-2022 Office outpatient vi sit 25 minutes Amy Zuñiga Work Phone: [facility] 250 DO Work Phone: Start: 11-24-2022 End: 11-24-[address] USHA FERMIN Facility: Start: 11-22-2022 End: 11-23-2022 ambulatory EFREN CARBAJAL Facility:[facility] Start: 11-22-2022 End: 11-22-2022 Patient encounter procedure Efren Carbajal DO Work Phone: [facility] Comment on above: No-show for appointm ent (Primary Dx) Start: 11-22-2022 End: 11-22-2022 Telemedicine consultation with patient Efren Garcia Solomon DO Work Phone: [facility] Start: 11-15-2022 End: 11-16-2022 ambulatory Christo Saab Facility:[facility] [place] Start: 10-20-2022 End: 10-20-2022 ambulatory EFREN CARBAJAL Facility:[facility] Start: 10-19-2022 End: 10-20-[address] AMY ZUÑIGA . Facility:H1 Start: 10-11-2022 End: 10-12-2022 ambulatory AMY ZUÑIGA Facility:[facility] [place] Start: 10-05-2022 End: 10-05-2022 Patient encounter procedure MD Amy Zuñiga Work Phone: [facility] Work Phone: Start: 10-05-2022 ([facility] KRISTIN) [facility] Transition of Care Ayana Miles [facility] Start: 10-05-2022 End: 10-05-2022 ambulatory Ayana Miles Other [employer] Other Start: 10-03-2022 Postop follow up vis it related to original px Amy Zuñiga Work Phone: [facility] [place] 250 DO Work Phone: Start: 10-03-[address] Roel Mireles II Facility: Start: 09-27-2022 Message Cesar Laguna Work Phone: [facility] 250 DO Work Phone: Start: 09-27-[address] Roel Mireles II Facility:[id number] Start: 09-26-[address] Roel Mireles II Facility:[id number] Start: 09-25-2022 End: 09-27-2022 Evaluation and management of inpatient MD Amy Zuñiga Work Phone: [facility] Work Phone: Start: 09-25-2022 End: 09-25-[address] NILDA CARLISLE . Facility:H1 Start: 09-25-[address] Roel Mireles II Facility:[id number] Start: 09-15-2022 End: 09-16-[address] AMY ZUÑIGA . Facility:H1 Start: 09-05-2022 End: 09-06-[address] AMY ZUÑIGA . Facility:H1 Start: 08-29-2022 Telephone encounter Ayanna gaffney Research Coordinator Work Phone: [facility] Comment on above: Patient Question Start: 08-17-2022 Telephone encounter Efren michael DO Work Phone: [facility] Comment on above: Medication Problem Start: 08-10-[address] Edel Cesar Facility: Start: 07-19-2022 Rx Renewal Cesar Luz Elena Work Phone: [facility] 250 DO Work Phone: Start: 07-18-2022 End: 07-18-[address] MAY ZUÑIGA . Facility: Start: 06-28-2022 Telephone encounter Efren michael DO Work Phone: [facility] Comment on above: Clinical Update (Med ication Question/) Start: 06-24-2022 ambulatory Amanuel Rosa [facility] Start: 06-24-2022 Patient encounter procedure Amanuel Rosa [facility] Comment on above: SPP Neurology - Rosario tment Referral (Musa); Insurance Authorization ([place] Submission Pending ) Start: 02-24-2022 Office outpatient vi sit 25 minutes Cesar Luz Elena Work Phone: [facility] 600 DO Work Phone: Start: 12-23-2021 End: 12-23-2021 ambulatory JORDAN CHEN Facility:H1 Start: 10-08-2021 Office outpatient ne w 45 minutes Cesar Luz Elena Work Phone: [facility] Work Phone: Procedures Date Procedure Procedure Detail [...] Saab Esophagoduodenostomy Christo Saab Hernia repair Cesar Henley Work Phone: Insertion of pacemak er pulse generator Amy Zuñiga Work Phone: Operation on colon Cesar H ade Work Phone: Procedure on prostate Paras Laguna Work Phone: Plan of Treatment Date Care Activity Detail Author Start: 07-03-2031 DTaP/Tdap/Td Vaccine s (3 - Td or Tdap) DTaP/Tdap/Td Vaccines (3 - Td or Tdap) [facility] Start: 07-03-2031 Urine microalbumin profile [facility] Start: 05-05-2026 Diabetes Screening Diabetes Screenin g [facility] Start: 11-08-2023 ambulatory Ambulatory Facility:[facility] Start: 11-07-2023 End: 11-07-2023 Patient encounter procedure 11/07/2023 3:30 PM EDT Office Visit [facility] [address] [facility] [address] [place] [address] Edel Cesar MD [address] [facility] [address] [place] [address] [facility] Start: 10-25-2023 End: 01-24-2024 Aldolase [Enzymatic activity/volume] in Serum or Plasma ALDOLASE BLD Lab Routine Muscle pain Expected: 10/25/2023, Expires: 01/24/2024 [facility] Work Phone: Comment on above: Expected: 10/25/2023 , Expires: 01/24/2024 Start: 10-25-2023 End: 01-24-2024 Comprehensive metabolic 2000 panel - Serum or Plasma COMP METABOLIC PANEL Lab Routine Muscle pain Expected: 10/25/2023, Expires: 01/24/2024 [facility] Work Phone: Comment on above: Expected: 10/25/2023 , Expires: 01/24/2024 Start: 10-25-2023 End: 01-24-2024 Creatine kinase [Enzymatic activity/volume] in Serum or Plasma CK CREATINE KINASE Lab Routine Muscle pain Expected: 10/25/2023, Expires: 01/24/2024 [facility] Work Phone: Comment on above: Expected: 10/25/2023 , Expires: 01/24/2024 Start: 10-25-2023 End: 01-24-2024 Erythrocyte sedimentation rate SED RATE WESTERGREN Lab Routine Muscle pain Expected: 10/25/2023, Expires: 01/24/2024 [facility] Work Phone: Comment on above: Expected: 10/25/2023 , Expires: 01/24/2024 Start: 10-25-2023 End: 01-24-2024 Magnesium [Mass/volume] in Serum or Plasma MAGNESIUM BLD Lab Routine Muscle pain Expected: 10/25/2023, Expires: 01/24/2024 [facility] Work Phone: Comment on above: Expected: 10/25/2023 , Expires: 01/24/2024 Start: 10-25-2023 End: 01-24-2024 PYRUVATE+LACTATE BL PYRUVATE+LACTATE BL Lab Routine Muscle pain Expected: 10/25/2023, Expires: 01/24/2024 [facility] Work Phone: Comment on above: Expected: 10/25/2023 , Expires: 01/24/2024 Start: 08-05-2023 End: 07-05-2024 ECG 12 Lead ECG 12 Lead ECG Routine Persistent atrial fibrillation (CMS/HCC) Expected: 08/05/2023 (Approximate), Expires: 07/05/2024 [facility] Service Area Work Phone: Comment on above: Expected: 08/05/2023 (Approximate), Expires: 07/05/2024 Start: 08-01-2023 End: 08-01-2023 Patient encounter procedure 08/01/2023 1:00 PM EST Procedure Visit [facility] [address] [address] [facility] Start: 07-31-2023 Advance Directive Discussion Advance Directive Discussion [facility] Start: 07-31-2023 Depression Assessment Depression Ass essment [facility] Start: 07-23-2023 [facility] Start: 07-21-2023 Hospital admission [facility] Start: 07-21-2023 [facility] Start: 07-21-2023 [facility] Start: 03-31-2023 Covid-19 Vaccine ( season) Covid-19 Vaccine () [facility] Start: 03-31-2023 Influenza vaccination [facility] Start: 02-10-2023 FUV, Provider: Edel Cesar, Status: Pen, Time: 10:00 AM FUV, Provider: Edel Cesar, Status: Pen, Time: 10:00 AM -[facility] [place] 250 DO Work Phone: Start: 01-11-2023 FUV, Provider: Edel Cesar, Status: Pen, Time: 3:00 PM FUV, Provider: Edel Cesar, Status: Pen, Time: 3:00 PM MP-[facility] [place] 250 DO Work Phone: Start: 12-13-2022 SURGNONUH, Provider: Edel Cesar, Status: Pen, Time: 11:00 AM SURGNONUH, Provider: Edel Cesar, Status: Pen, Time: 11:00 AM -[facility] [place] 250 DO Work Phone: Start: 12-13-2022 [facility] Start: 11-25-2022 FUV, Provider: Edel Cesar, Status: Pen, Time: 9:30 AM FUV, Provider: Edel Cesar, Status: Pen, Time: 9:30 AM -[facility] [place] 250 DO Work Phone: Start: 10-03-2022 [place]OUND[place], Provider : NATALY TELLEZ G[employer] MASK ASSEMBLER 1,[id number], Status: Pen, Time: 10:30 AM WOUNDCHECK, Provider: NATALY TELLEZ G[employer] MASK ASSEMBLER 1,[id number], Status: Pen, Time: 10:30 AM -[facility] [place] 250 DO Work Phone: Start: 09-27-2022 End: 09-27-2022 [facility] Start: 09-26-2022 [facility] Start: 09-25-2022 Insertion of Pacemak er Lead into Right Atrium, Percutaneous Approach Insertion of Pacemaker Lead into Right Atrium, Percutaneous Approach [facility] Start: 09-25-2022 Insertion of Pacemak er Lead into Right Ventricle, Percutaneous Approach Insertion of Pacemaker Lead into Right Ventricle, Percutaneous Approach [facility] Start: 09-25-2022 Insertion of Pacemak er, Dual Chamber into Chest Subcutaneous Tissue and Fascia, Open Approach Insertion of Pacemaker, Dual Chamber into Chest Subcutaneous Tissue and Fascia, Open Approach [facility] Start: 09-25-2022 Referral to addictions recovery specialist [facility] Start: 09-25-2022 Hospital admission [facility] Start: 09-07-2022 COVID-19 Vaccine (4 - Moderna series) COVID-19 Vaccine (4 - Moderna series) [facility] Start: 08-10-2022 FUV, Provider: Edel Cesar, Status: Pen, Time: 9:20 AM FUV, Provider: Edel Cesar, Status: Pen, Time: 9:20 AM [place] [address] DO Work Phone: Start: 07-31-2022 ADVANCE DIRECTIVE DISCUSSION ADVANCE DIRECTIVE DISCUSSION [facility] Start: 07-31-2022 DEPRESSION ASSESSMENT DEPRESSION ASS ESSMENT [facility] Start: 03-31-2022 Influenza vaccination INFLUENZA (#1) [facility] Start: 12-29-2021 FUV, Provider: Edel Cesar, Status: Pen, Time: 9:40 AM FUV, Provider: Edel Cesar, Status: Pen, Time: 9:40 AM [facility] Work Phone: Start: 09-14-2021 COVID-19 VACCINE (4 - Booster for Moderna series) COVID-19 VACCINE (4 - Booster for Moderna series) [facility] Start: 09-14-2021 Covid-19 Vaccine (4 - Moderna series) Covid-19 Vaccine (4 - Moderna series) [facility] Start: 07-31-2021 ADVANCE DIRECTIVE DISCUSSION ADVANCE DIRECTIVE DISCUSSION [facility] Start: 07-31-2021 DEPRESSION ASSESSMENT DEPRESSION ASS ESSMENT [facility] Start: 12-31-2019 DIABETES SCREEN [facility]CREEN [facility] Start: 12-31-2019 Diabetes Screening Diabetes Screenin g [facility] Start: 2003 Pneumococcal Vaccine : 65+ (1 - PCV) Pneumococcal Vaccine: 65+ (1 - PCV) [facility] Start: 2003 PNEUMOCOCCAL: 65+ (1 - PCV) PNEUMOCOCCAL: 65+ (1 - PCV) [facility] Start: 1998 RSV Vaccine (1 - 1-d ose 60+ series) RSV Vaccine (1 - 1-dose 60+ series) [facility] Start: 1988 SHINGRIX VACCINE (1 of 2) SHINGRIX VACCINE (1 of 2) [facility] Start: 1988 Zoster Vaccines (1 of 2) Zoste r Vaccines (1 of 2) [facility] Start: 1957 Urine microalbumin profile [facility] Start: 1956 Diabetes mellitus screening Diabetes Screening [facility] Start: 1938 Lipid panel Lipid Panel [facility] Start: 1938 Medicare Annual Well ness Visit Medicare Annual Wellness Visit (AWV) [facility] Start: 1938 Thyroid stimulating hormone measurement TSH Level [facility] ECG 12 Lead ECG 12 Lead ECG Routine Persistent atrial fibrillation (CMS/HCC) 07/13/2023 1:48 PM EST [facility] Service Area Work Phone: Patient Education Atrial Fibrill ation (DC) [facility] Work Phone: Patient referral [facility] Work Phone: End: 11-23-2024 US Lower extremity vein - bilateral US DVT LOWER BILATERAL Radiology Routine Muscle pain Encounter for other preprocedural examination Pain in left leg 1 Occurrences starting 10/25/2023 until 11/23/2024 [facility] Work Phone: Comment on above: 1 Occurrences starti ng 10/25/2023 until 11/23/2024 [facility] Immunizations Immunization Date Immunization Notes Care Provider Cullen ames 05-30-2023 influenza, high dose seasonal, preservative-free Christo Saab [facility] 07-13-2022 Moderna COVID-19 Biv al Booster 50 MCG/0.5ML Intramuscular Suspension Cesartata Pérezron Work Phone: [facility] Comment on above: Result Comment: 2022: [id number] 05-04-2022 Fluzone High-Dose Quadrivalent 0.7 ML Intramuscular Suspension Prefilled Syringe Cesar Luz Elena Work Phone: [place] [address] DO Work Phone: 05-04-2022 influenza virus vaccine, unspecified formulation Efren Carbajal DO Work Phone: [facility] 07-20-2021 Moderna COVID-19 Vaccine 100 MCG/0.5ML Intramuscular Suspension Cesar Luz Elena Work Phone: [facility] Comment on above: Series: Result Comment: 2022: [id number] 07-03-2021 diphtheria, tetanus toxoids and pertussis vaccine Cesar Henley Work Phone: [facility] Work Phone: 07-03-2021 tetanus toxoid, redu mikal diphtheria toxoid, and acellular pertussis vaccine, adsorbed Edel Cesar MD Work Phone: [facility] Work Phone: 09-25-2020 Moderna COVID-19 Vaccine 100 MCG/0.5ML Intramuscular Suspension Cesar Henley Work Phone: [facility] Comment on above: Series: 08-28-2020 Moderna COVID-19 Vaccine 100 MCG/0.5ML Intramuscular Suspension Cesar Luz Elena Work Phone: [facility] Comment on above: Series: 05-27-2020 Fluad Quadrivalent 0 .5 ML Intramuscular Prefilled Syringe Cesar Luz Elena Work Phone: [facility] Work Phone: 05-27-2020 influenza virus vaccine, unspecified formulation Christo Saab [facility] 06-12-2019 influenza virus vaccine, unspecified formulation Christo Saab [facility] 06-12-2019 influenza, high dose seasonal, preservative-free Cesar Luz Elena Work Phone: [facility] Work Phone: 06-12-2019 pneumococcal polysaccharide vaccine, 23 valent Cesar Luz Elena Work Phone: [facility] 06-04-2018 influenza virus vaccine, unspecified formulation Christo Saab [facility] 06-04-2018 Influenza, injectabl e, Madin [place] Canine Kidney, preservative free, quadrivalent Cesar Henley Work Phone: [facility] Work Phone: 07-03-2017 influenza virus vaccine, unspecified formulation Christomecca Saab [facility] 07-03-2017 influenza, high dose seasonal, preservative-free Cesar Luz Elena Work Phone: [facility] Work Phone: 07-03-2017 pneumococcal conjuga te vaccine, 13 valent Cesar Luz Elena Work Phone: [facility] 05-24-2013 influenza virus vaccine, unspecified formulation Christo Saab [facility] 05-24-2013 influenza, seasonal, injectable Cesar Henley Work Phone: [facility] Work Phone: 05-16-2009 influenza virus vaccine, whole virus Cesar Henley Work Phone: [facility] Work Phone: 05-16-2009 influenza, whole Christo Saab [facility] Payers Date Payer Category Payer Self-pay 2022 Unknown 2014 Private Health Insurance [facility] AARP SUPPLEMENT [id number] 2014-Present [phone] [address] [place] [address] Indemnity [id number] 2003 Medicare [id number] 1959 Medicare [id number] 1959 Unknown [id number] 2.16.840.1.066399.19 1938 Unknown [id number] 2.16.840.1.678591.3.579.2 .593 1938 Unknown [id number] 2.16.840.1.276170.3.579.2 .593 1938 Unknown [id number] 2.16.840.1.776651.3.579.2 .593 1938 Unknown [id number] 2.16.840.1.703429.3.579.2 .593 1938 Unknown [id number] 2.16.840.1.870087.3.579.2 .593 1938 Unknown [id number] 2.16.840.1.077978.3.579.2 .593 1938 Unknown [id number] 2.16.840.1.569086.3.579.2 .593 1938 Unknown [id number] 2.16.840.1.652456.3.579.2 .593 1938 Unknown [id number] 2.16.840.1.539929.3.579.2 .593 1938 Unknown [id number] 2.16.840.1.356719.3.579.2 .356 1938 Unknown [id number] 2.16.840.1.892736.3.579.2 .356 1938 Unknown [id number] 2.840.1.987838.3.579.2 .356 1938 Unknown [id number] 2.840.1.706964.3.579.2 .356 1938 Unknown [id number] 2.840.1.274214.3.579.2 .356 1938 Unknown [id number] 2.840.1.487323.3.579.2 .356 1938 Unknown [id number] 2.840.1.226312.3.579.2 .356 1938 Unknown [id number] 2.840.1.440232.3.579.2 .356 1938 Unknown [id number] 2.840.1.612439.3.579.2 .356 1938 Unknown [id number] 2.840.1.113116.3.579.2 .356 1938 Unknown [id number] 2.840.1.034441.3.579.2 .356 1938 Unknown [id number] 2.840.1.679565.3.579.2 .356 1938 Unknown [id number] 2.840.1.981146.3.579.2 .356 1938 Unknown [id number] 2.840.1.256861.3.579.2 .356 1938 Unknown [id number] 2.16.840.1.823008.3.579.2 .1259 1938 Unknown [id number] 2.16.840.1.219293.3.579.2 .1244 1938 Unknown [id number] 2.16.840.1.395560.3.579.2 .1244 1938 Unknown [id number] 2.16.840.1.164091.3.579.2 .1244 1938 Unknown [id number] 2.16.840.1.531269.3.579.2 .727 1938 Unknown [id number] 2.16.840.1.319980.3.579.2 .72 1938 Unknown [id number] 2.16840.1.134422.3.579.2 .72 1938 Unknown [id number] 2.16.840.1.071649.3.579.2 .72 1938 Unknown [id number] 2.16.840.1.839714.3.579.2 .72 1938 Unknown [id number] 2.16.840.1.446766.3.579.2 .727 1938 Unknown [id number] 2.16840.1.758173.3.579.2 .72 1938 Unknown [id number] 2.16.840.1.926730.3.579.2 .72 1938 Unknown [id number] 2.16.840.1.242970.3.579.2 .72 1938 Unknown [id number] 2.16.840.1.430987.3.579.2 .72 1938 Unknown [id number] 2.16.840.1.294007.3.579.2 .72 1938 Unknown [id number] 2.16.840.1.441024.3.579.2 .727 1938 Unknown [id number] 2.16840.1.867899.3.579.2 .727 Medicare Medicare Outpatient [id number] Unknown [facility] Claims [id number] Unknown [id number] 2.16840.1.597626.3.579.2 .531 Unknown [id number] 2.16840.1.754310.3.579.2 .531 Unknown [id number] 2.16840.1.614206.3.579.2 .531 Unknown [id number] 2.16840.1.614083.3.579.2 .531 Unknown [id number] 2.16840.1.057392.3.579.2 .531 Unknown [id number] 2.16840.1.535850.3.579.2 .531 Unknown [id number] 2.16840.1.343025.3.579.2 .531 Unknown [id number] 2.16840.1.089371.3.579.2 .531 Social History Date Type Detail Facility Start: 06-21-2022 End: 08-15-2022 No illicit drug use No illicit drug use [facility] Start: 06-21-2022 End: 07-21-2023 Tobacco smoking status NHIS Ex-smoker [facility] History of tobacco use Current smoker [facility] History of tobacco use Cigarette Smoker [facility] Start: 06-21-2022 End: 07-05-2023 Tobacco use and exposure Smokeless tobacco non-user [facility] Start: 06-21-2022 End: 05-05-2023 Alcohol intake Current non-drinker of alcohol (finding) [facility] Start: 06-21-2022 Tobacco Comment quit many yrs ago [facility] Start: 1940 Sex Assigned At Not on file [facility] Start: 06-11-2022 End: 07-13-2023 Exposure to SARS-CoV-2 (event) Not sure [facility] Start: 09-26-2022 End: 09-26-2022 Tobacco smoking status NHIS Never smoked tobacco (finding) [facility] Start: 1940 Sex Assigned At Male F [facility] Start: 08-15-2022 End: 05-05-2023 Sex Assigned At [facility] Adult Depression Screening Assessment 0 [facility] Start: 07-05-2023 End: 07-13-2023 Alcohol intake Lifetime non-drinker (finding) [facility] Work Phone: Medical Equipment Procedure Code Equipment Code Equipment Origin al Text Equipment Identifier Dates Insertion, pacemaker Endocardial pacing lead [id number] FDA Start: 09-26-2022 Insertion, pacemaker Endocardial pacing lead ()[id number] FDA Start: 09-26-2022 Insertion, pacemaker Dual-chamber implantable pacemaker, rate-responsive ()[id number] FDA Start: 09-26-2022 Goals Date Patient Goal Desired Activity /State Functional Status Date Assessment Result Facility 07-23-2023 Functional status Patient at Baseline [facility] Work Phone: 07-21-2023 Functional status Patient Not at Baseline [facility] Work Phone: 09-27-2022 Functional status Patient at Baseline [facility] Work Phone: Mental Status Date Assessment Result Facility 07-23-2023 Cognitive function Cognitive Sta tus Patient at Baseline [facility] Work Phone: 07-21-2023 Cognitive function Cognitive Sta tus Patient at Baseline [facility] Work Phone: 09-27-2022 Cognitive function Cognitive Sta tus Patient is Progressing Toward Baseline [facility] Work Phone: Clinical Notes 11-25-2022 to 09-08-2023 [...] in scanned docs. documented in this encounter [facility] 08-29-2023 Note HNO ID: [id number] Author: EFREN CARBAJAL, DO Service: ? Author Type: Physician Type: Progress Notes Filed: 09/04/2023 23:56 Note Text: VIRTUAL VISIT PROGRESS NOTE This is a virtual visit using [employer] Zoom Video Visit. It required patient-provider interaction for the medical decision making as documented below. I have communicated my name and active licensure. The patient's identity and physical location were verified at the time of this visit. Either the patient or their legal tax representative has been informed of the risks [...] which included preparing to see the patient, [id number] patient care, completing clinical documentation, obtaining and/or reviewing separately obtained history, performing a medically appropriate examination, counseling and educating the patient/family/caregiver, and ordering medications, tests, or procedures Efren Carbajal DO [facility] 08-29-2023 Instructions Efren Carbajal DO - 08/29/2023 [...] x x x documented in this encounter [facility] 08-29-2023 History of Presen t illness Narrative VIRTUAL VISIT PROGRESS NOTE This is a virtual visit using [employer] Zoom Video Visit. It required patient-provider interaction for the medical decision making as documented below. I have communicated my name and active licensure. The patient's identity and physical location were verified at the time of this visit. Either the patient or their legal tax representative has been informed of the risks [...] which included preparing to see the patient, dtxf-ru-qgor patient care, completing clinical documentation, obtaining and/or reviewing separately obtained history, performing a medically appropriate examination, counseling and educating the patient/family/caregiver, and ordering medications, tests, or procedures Efren Carbajal DO documented in this encounter [facility] 07-22-2023 Progress note Note Date/Time July 22, 2023 10:57am [facility] ENTER [address] [place] [address] Hospitalist Progress Note Signed with Chandler Patient: Magdaleno Valderrama MR#: [id number] : 1940 Acct:[id number] Age/Sex: 83 / M Adm Date: 3 Loc: Room: [address] [place] [address] Type: ADM IN Attending Dr: Ashwini Clancy [...] 09/25/22 12:07) Unknown Reaction neomycin [From Neosporin (vhz-ywp-islps)] Allergy (Verified 09/25/22 12:07) Blister polymyxin B [From Neosporin (tkt-hoe-bgchf)] Allergy (Verified 09/25/22 12:07) Blister Active Meds: [...] 1,000 Ml IV 07/20/24 18:14 75 mls/hr .[id number] ROB Administration Levothyroxine Sodium 100 mcg 07/22/23 [...] <Electronically signed by Ashwini Clancy MD> 07/22/23 134[address] [facility] Work Phone: 1(229) 925-380512-22-2023 History and physical note Author Ashwini Clancy [facility] July 21, 2023 6:20pm Note Date/Time July 21, 2023 3:58pm [facility] ENTER [address] [place] [address] Hospitalist H&P Signed with Chandler Patient: Magdaleno Valderrama MR#: [id number] : 1940 Acct:[id number] Age/Sex: 83 / M Adm Date: 3 Loc: Room: [address] [place] [address] Type: ADM IN Attending Dr: Ashwini Clancy [...] negative unless noted below or in HPI [facility] Medical History (Updated 07/21/23 @ 16:00 by David Reis PA-C) Afib Parkinson disease Sleep apnea Surgical History AICD (automatic cardioverter/defibrillator) present Social History Smoking Status: Former smoker Tobacco Type: cigarettes Substance Use Type: None Meds Medications and Allergies Allergies bacitracin Allergy (Verified 09/25/22 12:07) Unknown Reaction haloperidol [From Haldol] Allergy (Verified 09/25/22 12:07) Unknown Reaction neomycin [From Neosporin (tbl-wpn-ycaad)] Allergy (Verified 09/25/22 12:07) Blister polymyxin B [From Neosporin (rvg-qtz-dzmcs)] Allergy (Verified 09/25/22 12:07) Blister Home Medications [...] PO DAILY 12/12/22 [History Confirmed 07/21/23] vitamins A,C,Z-jbms-fwqsab 2,148 mcg-113 mg-45 mg-17.4 mg tablet (PreserVision [...] % (Auto) 14.3 % (.) 07/21/23 12:03 Grimes % (Auto) 9.5 % (.) 07/21/23 12:03 Eos % (Auto) 0.6 % (.) 07/21/23 12:03 Baso % (Auto) 0.5 % (.) 07/21/23 12:03 Nucleat RBC Rel Count 0.1 /100 WBC (0-0.5) 07/21/23 12:03 Neut # (Auto) 5.8 x10E3/uL (1.8-7.7) 07/21/23 12:03 Lymph # (Auto) 1.1 x10E3/uL (1.00-4.8) 07/21/23 12:03 Grimes # (Auto) 0.7 x10E3/uL (0.0-0.8) 07/21/23 12:03 [...] pH 5.5 (5.0-9.0) 07/21/23 12:20 Ur Specific [place] 1.011 (1.001-1.030) 07/21/23 12:20 Urine Protein Negative [...] signed by Ashwini Clancy MD> 07/21/23 18[facility] Work Phone: 1(355) 811-955812-22-2023 NoteHNO ID: [id number] Author: Joycelyn Francisco RPh Service: ? Author Type: Pharmacist Type: Progress Notes Filed: 07/21/2023 1:23 PM Note Text: [facility] Discontinuation Assessment: Disease group: Neurology Medication: INBRIJA 42 MG CAPSULE WITH INHALATION DEVICE Discontinue reason: Side effect intolerance [facility]celyn Francisco [facility] History of Present illness Narrative* Trung Lopez [...] m (5' 8 ) [facility] Work Phone: 1([phone]) 759-768612-14-2023 Miscellaneous Notes* Telephone Encounter - Martha Richmond [...] electronically to the patient's pharmacy. Martha Soria, Animal Tech III documented in this encounterOhiohealth [facility]field Hospital12-11-2023 Miscellaneous Notes* Telephone Encounter - Martha Richmond - 07/10/2023 2:26 PM EST Son requesting refill as follows: Last FUV May 2023 with [facility] Requested Prescriptions Pending Prescriptions Disp Refills donepezil (ARICEPT) 5 mg tablet 30 tablet 11 Sig: Take 1 tablet by mouth daily. Upon approval, script will be sent electronically to the patient's pharmacy. Martha Soria, Animal Tech III documented in this encounterOhiohealth Mansfield Hospital12-06-2023 History of Present illness Narrative* Edel [...] Follow Up In Cardiology documented in this [facility] Work Phone: [phone] 132-322512-06-2023 Instructions* Patient Instructions* Katt Fabian LPN - [...] 4 month follow up documented in this [facility] Work Phone: 1([phone]) 143-631511-27-2023 NoteHNO ID: [id number] Author: Ebony Miller Service: ? Author Type: ? Type: Progress Notes Filed: 06/26/2023 8:58 AM Note Text: [facility] received prescription(s) for Inbrija from Dr. Efren Carbaajl's office. Benefits investigation was conducted, indicating that a prior authorization is required. PA was approved with details listed below: Plan Name: OptumRx PA reference number: [id number] Approval Dates: through 07/30/2023 Copay is high [...] time. Patient will be referred to BMSPAF ([employer]) Assistance Program. Note will be update once pt is contacted. Ebony Miller CPhT Cardiology, Neurology AND Infectious Disease [facility]-27-2023 NoteHNO ID: [id number] Author: Lars Sebastian RPh Service: ? Author Type: Pharmacist Type: Progress Notes Filed: 06/27/2023 2:06 PM Note Text: [facility] received prescription(s) for Inbrija from Dr. Carbajal's office. Benefits investigation was conducted, indicating that a prior authorization is required. 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 Assessment Patient confirmed: Yes Med/dose confirmed: Yes Supplies needed: Welcome packet Copay amount: 850.31 Copay form of payment: Credit card on file Payment confirmed: Yes Delivery method: FedEx Signature required: No Delivery address: [address] [place] [address] [address]; [place] [address] Delivery date: 06/29/23 [facility] Visit Assessment - Neurology: Assessment to use: Initial Vaccination Assessment: Annual influenza vaccination reminder: Yes Date of influenza vaccination reminder: 06/27/2023 Vaccination assessment completed: Yes Date of most recent vaccination assessment: 06/27/2023 Treatment Plan Information: Treatment Plan Information: Magdaleno Valderrama starting Inbrija Indication is Parkinson's Disease Dosing checked and meets protocol manager guidelines The dose of INBRIJA is 2 [...] provided, patient was also encouraged to call [employer]) or visit [employer] for resources including access to medical experts [...] provided, patient was also encouraged to call [employer] or visit [employer] for resources including access to medical experts [...] intended outcome of therapy: Yes Lars Sebastian [facility]11-27-2023 History of Present illness Narrative* Ebony Miller - 06/26/2023 7:42 AM EST [facility] received prescription(s) for Inbrija from Dr. Efren Carbajal's office. Benefits investigation was conducted, indicating that a prior authorization is required. BERE was approved with details listed below: Plan Name: [employer] PA reference number: [id number] Approval Dates: through 07/30/2023 Copay is high [...] time. Patient will be referred to BMSPAF ([employer]) Assistance Program. Note will be update once pt is contacted. Ebony Miller CPhT Cardiology, Neurology & Infectious Disease [facility] documented in this encounterOhiohealth Mansfield Hospital11-21-2023 NoteHNO ID: [id number] Author: Efren Carbajal, DO Service: ? Author Type: Physician Type: Progress Notes Filed: 06/20/2023 2:42 PM Note Text: VIRTUAL VISIT PROGRESS NOTE This is a virtual visit using [employer] Video Visit. It required patient-provider interaction for the medical decision making as documented below. I have communicated my name and active licensure. The patient's identity and physical location were verified at the time of this visit. Either the patient or their legal tax representative has been informed of the risks [...] which included preparing to see the patient, mcbo-uk-xtzx patient care, completing clinical documentation, obtaining and/or reviewing separately obtained history, counseling and educating the patient/family/caregiver, ordering medications, tests, or procedures, communicating with other HCPs (not separately (more content not included)...[facility]11-21-2023 Instructions* Patient Instructions* Efren Carbajal, DO - [...] up to 5x daily documented in this encounterOhiohealth Mansfield Hospital11-21-2023 History of Present illness Narrative* Efren Carbajal DO - 06/20/2023 2:22 PM EST VIRTUAL VISIT PROGRESS NOTE This is a virtual visit using [employer] Video Visit. It required patient- provider interaction for the medical decision making as documented below. I have communicated my name and active licensure. The patient's identity and physical location wereverified at the time of this visit. Either the patient or their legal tax representative has been informed of the risks [...] which included preparing to see the patient, ljov-kq-qdau patient care, completing clinical documentation, obtaining and/or reviewing separately obtained history, counseling and educating the patient/family/caregiver, ordering medications, hitesh ts, or procedures, communicating with other HCPs (not separately reported), and communicating results to the patient/family/caregiver Efren Carbajal DO documented in this encounterOhiohealth Mansfield Hospital10-06-2023 NoteHNO ID: [id number] Author: Efren Carbajal DO Service: ? Author Type: Physician Type: Progress Notes Filed: 05/05/2023 12:37 PM Note Text: [facility] - FOLLOW UP EVALUATION Amy Zuñiga MD [address] [facility] [address] Magdaleno Valderrama is a 82 year old [...] He goes to a PD class in [place] 3x weekly. He has more difficulty getting [...] Left pathological reflexes: Kailash's absent. Coordination Right: Wnzcaf-mt-ubrc normal. Rapid alternating movement normal.Left: Nwsfcu-eb-tspv normal. Rapid alternating movement normal. Gait Casual [...] motion is easily achieved. (more content not included)...[id number] History of Present illness Narrative* SolomonEfren, - 05/05/2023 11:14 AM EDT [facility] - FOLLOW UP EVALUATION Amy Zuñiga MD [address] [facility] [address] Magdaleno Valderrama is a 82 year old [...] He goes to a PD class in [place] 3x weekly. He has more difficulty getting [...] Left pathological reflexes: Kailash's absent. Coordination Right: Bfqltm-kg-asia normal. Rapid alternating movement normal.Left: Qflinn-gg-hqgk normal. Rapid alternating movement normal. Gait Casual [...] counseling regarding preparing to see the patient, agim-qr-fldn patient care, completing clinical documentation, obtaining and/or reviewing separately obtained history, performing a medically appropriate examination, counseling and educating the patient/family/caregiver, ordering medications, tests,or procedures, and communicating results to the patient/family/caregiver. I tried to answer all of the patient's questions and concerns during this visit. Efren Carbajal DO Senior Staff Neurologist - [facility] documented in this encounterOhiohealth Mansfield Hospital07-24-2023 Evaluation + Plan note Future Scheduled Tests Laboratory* TSH With T4fr Reflex 02/20/23 [facility]07-03-2023 Miscellaneous Notes* Telephone Encounter - Kacie [...] 6 PM Kacie Pedroza documented in this encounterOhiohealth Mansfield Hospital05-16-2023 [facility] Instructions* Patient Instructions* Efren Carbajal DO - [...] up to 5x daily documented in this encounterOhiohealth Mansfield Hospital05-03-2023 NoteHNO ID: [id number] Author: Rhoda Romero Service: ? Author Type: ? Type: Progress Notes Filed: 11/30/2022 1:02 PM Note Text: [facility] received prescription(s) for Inbrija from Dr. Villavicencio's office. Benefits investigation was conducted, indicating that a prior authorization is required. BERE was approved with details listed below: Plan Name: Optum Medicare PA reference number: [id number] Approval Dates: 06/29/22 - 07/30/23 First copay [...] update once pt is contacted. Rhoda Heather [facility] P: [phone] F: [phone] [facility]05-03-2023 NoteHNO ID: [id number] Author: Rhoda Maldonadocindy Service: ? Author Type: ? Type: Progress Notes Filed: 12/01/2022 2:05 PM Note Text: Spoke to Cristian Valderrama (son) regarding affordability for Inbrija, as patient's copay is high. There are no current grants for their diagnosis. [employer] will now refer patient to the protocol manager Patient Assistance Program. Discussed eligibility for the BMSPAF ([employer]) Patient Assistance Program, and pt [...] return via e-mail to . Rhoda Romero [facility] P: [phone] F: [phone] County Hospital05-02-2023 NoteHNO ID: [id number] Author: Efren Carbajal, DO Service: ? Author Type: Physician Type: Progress Notes Filed: 11/30/2022 9:24 PM Note Text: VIRTUAL VISIT PROGRESS NOTE This is a virtual visit using [employer] video visit. It required patient-provider interaction for the medical decision making as documented below. I have communicated my name and active licensure. The patient's identity and physical location were verified at the time of this visit. Either the patient or their legal tax representative has been informed of the risks [...] which included preparing to see the patient, sntd-pg-zicl patient care, completing clinical documentation, obtaining and/or reviewing separately obtained history, counseling and educating the patient/family/caregiver, ordering medications, tests, or procedures, communicating results to the patient/family/caregiver, and care coordination (not separately reported) [facility] MeyerCl[facility]05-02-2023 History of Present illness Narrative* Efren Carbajal DO - 11/29/2022 3:04 PM EDT VIRTUAL VISIT PROGRESS NOTE This is a virtual visit using [employer] video visit. It required patient-provider interaction for themedical decision making as documented below. I have communicated my name and active licensure. The patient's identity and physical location wereverified at the time of this visit. Either the patient or their legal tax representative has been informed of the risks [...] which included preparing to see the patient, gfld-nk-qxjq patient care, completing clinical documentation, obtaining and/or reviewing separately obtained history, counseling and educating the patient/family/caregiver, ordering medications, hitesh ts, or procedures, communicating results to the patient/family/caregiver, and care coordination (not separately reported) Efren Carbajal DO documented in this encounterOhiohealth Mansfield Hospital04-25-2023 NoteHNO ID: [id number] Author: Efren Carbajal DO Service: ? Author Type: Physician Type: Progress Notes Filed: 11/22/2022 4:37 PM Note Text: Left message on identified VM to call back This patient did not show up for this appointment. Efren Carbajal DO Senior Staff Neurologist - [facility]04-25-2023 History of Present illness Narrative* Efren Carbajal DO - 11/22/2022 4:35 PM EDT Left message on identified VM to call back This patient did not show up for this appointment. Efren Carbajal DO Senior Staff Neurologist [facility] documented in this encounterOhiohealth Mansfield Hospital04-07-2023 History of Present illness Narrative* Patient is here for follow-up from recent hospitalization. He recently presented with complete heart block and bradycardia. He underwent dual-chamber placement. Since his discharge the patient appears to remain in atrial fibrillation. He reports over the last few weeks he developed significant lower extremity edema and scrotal edema. He was in [facility]. Record is not available to me. Apparently [...] to retrieve his recent ER visit from [place] * 4. I recommended to proceed with cardioversion and hope that with a improve his heart failure symptomatology. We will do a full basic metabolic profile prior to cardioversion * 5. I will see him back in the office in 3 to 4 months after cardioversion -[facility] [address] DO Work Phone: [phone] NoteHNO ID: [id number] Author: Efren Carbajal, DO Service: ? Author Type: Physician Type: Progress Notes Filed: 10/20/2022 4:19 PM Note Text: [facility] - FOLLOW UP EVALUATION Efren Carbajal [address] [facility] [address] Amy Zuñiga MD [address] [facility] [address] Magdaleno Valderrama is a 82 year old [...] Left pathological reflexes: Kailash's absent. Coordination Right: Bdllzp-nl-ivdv normal. Rapid alternating movement normal.Left: Iofwqu-vi-cpol normal. Rapid alternating movement normal. Gait Casual [...] postural instability; physically independe (more content not included)...[facility]03-08-2023 Evaluation note* Encounter Date Diagnosis Assessment Notes [...] intermittent pacemaker checks in addition to his addictions recovery specialist visits which are currently scheduled. [employer] Other 02-28-2023 Progress note Author Edel Cesar [facility] September 27, 2022 9:48am Note Date/Time September 27, 2022 9:46am [facility] ENTER [address] [place] [address] Cardiology Progress Note Signed Patient: Magdaleno Valderrama MR#: [id number] : 1940 Acct:[id number] Age/Sex: 82 / M Adm Date: 3 Loc: Room: [address] [place] [address] Type: ADM IN Attending Dr: Jordan Gallegos [...] % (Auto) 76.3 Lymph % (Auto) 11.6 Grimes % (Auto) 10.3 Eos % (Auto) 1.5 Baso % (Auto) 0.3 Nucleat RBC Rel Count 0.0 Neut # (Auto) 6.0 Lymph # (Auto) 0.9 L Grimes # (Auto) 0.8 Eos # (Auto) 0.1 [...] signed by MD Edel Cesar> 09/27/22 0948 [facility] Work Phone: 1(238) 951-914702-27-2023 Progress note Author Jordan Gallegos [facility] September 26, 2022 7:27pm Note Date/Time September 26, 2022 7:28pm [facility] ENTER [address] [place], [place] [id number] Hospitalist Progress Note Signed Patient: Magdaleno Valderrama MR#: [id number] : 1940 Acct:[id number] Age/Sex: 82 / M Adm Date: 3 Loc: Room: [address] [place] [address] Type: ADM IN Attending Dr: Jordan Gallegos [...] 09/25/22 12:07) Unknown Reaction neomycin [From Neosporin (qkf-rrl-fvpaz)] Allergy (Verified 09/25/22 12:07) Blister polymyxin B [From Neosporin (oee-wxc-gdfoj)] Allergy (Verified 09/25/22 12:07) Blister Active Meds: [...] <Electronically signed by Jordan Gallegos DO> 09/26/221926 [facility] Work Phone: 1(678) 746-951502-26-2023 Consult note Author Roel Mireles [facility] September 25, 2022 1:46pm Note Date/Time September 25, 2022 1:46pm [facility] ENTER [address] [place] [address] Cardiology Consult Note Signed Patient: Magdaleno Valderrama MR#: [id number] : 1940 Acct:[id number] Age/Sex: 82 / M Adm Date: 3 Loc: Room: [address] [place] [address] Type: ADM IN Attending Dr: Jordan Gallegos [...] which she sees an neurologist at the [facility]. An echocardiogram performed 2 years ago [...] 09/25/22 12:07) Unknown Reaction neomycin [From Neosporin (tzg-mss-hiwfe)] Allergy (Verified 09/25/22 12:07) Blister polymyxin B [From Neosporin (nrr-umo-kchyv)] Allergy (Verified 09/25/22 12:07) Blister Home Medications [...] signed by MD Roel Mireles> 09/25/22 1346 [facility] Work Phone: 1(771) 439-952402-26-2023 History and physical note Author Jordan Gallegos [facility] September 25, 2022 1:23pm Note Date/Time September 25, 2022 12:49pm [facility] ENTER [address] [place] [address] Hospitalist H&P Signed Patient: Magdaleno Valderrama MR#: [id number] : 1940 Acct:[id number] Age/Sex: 82 / M Adm Date: 3 Loc: Room: [address] [place] [address] Type: ADM IN Attending Dr: Jordan Gallegos [...] definitive heart block. On arrival here at [facility] he has heart rate in the high [...] 09/25/22 12:07) Unknown Reaction neomycin [From Neosporin (vib-ptc-dgnox)] Allergy (Verified 09/25/22 12:07) Blister polymyxin B [From Neosporin (keq-bxh-gkptn)] Allergy (Verified 09/25/22 12:07) Blister Home Medications [...] signed by Jordan Gallegos DO> 09/25/22 1323 [facility] Work Phone: [phone]) 653-910401-30-2023 Miscellaneous Notes* Telephone Encounter - Ayanna Tong Research Coordinator - 08/29/2022 12:[address] Carbajal's request, I spoke to Mr. Magdaleno Valderrama and his son Cristian today to give them someinformation on the [employer] that is run by the [facility] for folks who would like to donate their brains to a program that focuses on neurodegenerative disorders. I emailed the info to Cristian, at their request. Ayanna Tong, Research Coordinator documented in this encounterOhiohealth Mansfield Hospital01-19-2023 Miscellaneous Notes* Telephone Encounter - Sherry Worley RN - 08/18/2022 3:15 PM EST Faxed 06/21/22 office notes w/ med list. Labonnie C Worley, RN * Telephone Encounter - [facility] Tommie Turpin - 08/17/2022 1:05 PM EST [...] suffice as well. cell documented in this encounterOhiohealth Mansfield Hospital11-29-2022 Miscellaneous Notes* Telephone Encounter - Efren [...] you don't reach patient) documented in this encounterOhiohealth Mansfield Hospital11-25-2022 History of Present illness Narrative* Rhoda Romero - 06/24/2022 8:22 AM EST [facility] received prescription(s) for Inbrija from Dr. Uriarte's office.Benefits investigation was conducted, indicating that a prior authorization is required by patient's insurance plan with Medicare OptumRx. Encounter will be updated once prior authorization has been submitted by [facility]. Rhoda Romero CPhT [facility] P: [phone] F: [phone] documented in this encounterOhiohealth Mansfield HospitalChi complaint Narrative - Reported MAGDALENO VALDERRAMA is being seen for a consultation for Tachy.[facility] Work Phone: Discharge summary Author Jordan Gallegos [facility] September 29, 2022 5:18pm Note Date/Time September 29, 2022 5:18 pm [facility] ENTER [address] [place] [address] Discharge Summary Signed Patient: Magdaleno Valderrama MR#: [id number] : 1940 Acct:[id number] Age/Sex: 82 / M Adm Date: 3 Loc: Room: [address] [place] [address]: Jordan Gallegos DO Copies to: MD Jordan Noriega, ~ Providers Date of Discharge: 09/27/22 Discharging Provider: Jordan Gallegos Primary Care Provider: Amy Zuñiga Consults: 09/25/22 12:40 Consult to Cardiology Routine 09/27/22 14:04 KRISTIN [[facility] Transition of Care Referral] Routine [...] prompting him to be transferred here to [facility]. On arrival he is in A- fib [...] with nurse for incision check in the [facility] Office on 10/03/2022 at 10:30am. 2. Chest x-ray to be done the same day as pacemaker check at [facility]12/29/2022. 3. Pacemaker/ICD clinic appointment at [facility] 12/29/2022 at 10:00am. 4. Office visit with Dr. Cesar at [facility] in [place] on 01/11/2023 at 3:00pm. [] Instructions: Atrial [...] Tablet 81 mg PO DAILY Follow Up: [facility] Transitions of Care [Outside] - 10/05/22 12:45 pm (You have been referred to the [facility] for Coordinated Care ([facility]) for a post discharge education visit because you have one or more conditions that have been associated with a moderate to high risk of complications that may increase the likelihood that you will be readmitted to the hospital again in the near future. .? Address:? [address] [place] [address], [facility].? NOTE:? PLEASE BRING ALL OF YOUR [...] <Electronically signed by Jordan Gallegos DO> 09/29/22 [address] [facility] Work Phone: Evaluvgdvz note* Diagnosis Parkinson's disease (HCC)- Primary Paralysis agitans [facility] Diagnosis Onset Date Resolution Status Atrial fibrillation acute Parkinson disease acute Syncope acute [facility] Work Phone: evaluabriv note* Diagnosis No-show for appointment- Primary [facility]* Diagnosis Motor fluctuations related to medication use in Parkinson's disease (HCC)- Primary Primary parkinsonism (HCC) Paralysis agitans [facility] assessment [facility] Work Phone: evaluation note* Diagnosis Primary parkinsonism- Primary Paralysis agitans Fatigue, unspecified type [facility]* Diagnosis Motor fluctuations related to medication use in Parkinson's disease documented [facility]* Diagnosis Motor fluctuations related to medication use in Parkinson's disease- Primary [facility]* Diagnosis Persistent atrial fibrillation (CMS/HCC)- Primary Atrial fibrillation Complete heart block (CMS/HCC) Atrioventricular block, complete Abnormal echocardiogram Nonspecific (abnormal) findings on radiological and other examination of other intrathoracic organs Pacemaker Cardiac pacemaker in situ Pulmonary hypertension (CMS/HCC) Other chronic pulmonary heart diseases Chronic right heart failure (CMS/HCC) documented in this encounter [facility] Work Phone: Evaluation note* Diagnosis Persistent atrial fibrillation (CMS/HCC) Atrial fibrillation documented in this encounter [facility] Work Phone: Evaluation note* Diagnosis Onset Date Resolution Status Acute kidney injury acute Afib acute Dehydration acute Fall acute Hypothyroidism acute Parkinson disease acute Weakness acute [facility] Work Phone: Evaluation note* Diagnosis Primary parkinsonism- Primary Paralysis agitans Motor fluctuations related to medication use in Parkinson's disease documented [facility]* Diagnosis Primary parkinsonism Paralysis agitans Motor fluctuations related to medication use in Parkinson's disease documented in this encounter [facility]* Diagnosis Muscle pain- Primary Mylagia and myositis, unspecified Encounter for other preprocedural examination Pain in left leg documented in this encounter [facility] general Narrative - Reported* Type Description Date Medical History Syncope Medical History Atrial fibrillation Medical History Complete heart block Medical History Status post pacemaker Medical History Parkinson's disease Medical History Hypothyroidism Surgical History Pacemaker implantation 09/2022 Surgical History Removal of thyroid Surgical History Appendectomy Surgical History [place] teeth Surgical History Tonsillectomy Hospitalization History See above [employer] Other History of Present illness Narrative* Patient [...] does meet the criteria for statin therapy [facility] Work Phone: Hospital course Narrative No data available for this section [facility] Additional Instructions Wound care daily: [...] with nurse for incision check in the [facility] Office on 10/03/2022 at 10:30am. 2. Chest x-ray to be done the same day as pacemaker check at [facility] 12/29/2022. 3. Pacemaker/ICD clinic appointment at [facility] 12/29/2022 at 10:00am. 4. Office visit with Dr. Cesar at [facility] in [place] on 01/11/2023 at 3:00pm. [][facility] Work Phone: Hospital Discharge instructions Additional Instructions No driving x 24 hoursC[facility] Work Phone: Hospital Discharge instructions No data available for this section [facility] instructions[facility] Orders* Initiate Home Health Time Frame: 07/26/23, Location: Determined By Patient [facility] Work Phone: Progress note No data available for this section [facility] (n[facility]ative)* Diagnostic Procedure Only (Routine) - Pending Review Specialty Diagnoses / Procedures Referred By Nely garcia Referred To Contact US IMAGING Diagnoses Muscle pain Encounter for other preprocedural examination Pain in left leg Procedures US DVT LOWER BILATERAL DUP-SCAN XTR VEINS COMPLETE BILATERAL STUDY Efrne Carbajal DO [address] [facility] [place] [address] [facility] [place] [address] Referral ID Status Reason Start Date Expiration Date Visits Requested Visits Authorized [id number] Pending Review Auto-Generat ed Referral 10/25/2023 11/23/2024 1 1 [facility] Family History Unknown Family Member Name [...] done by Dr. Roel Mireles MD at [facility] on 09/26/22.Dr. Nica García MD in suite. [...] done by Dr. Roel Mireles MD at [facility] on 09/26/22.Dr. Nica García MD in suite. [...] Atrial fibrillation Parkinson disease Syncope Chief Complaint KRITSIN Heart issues I48.0 CHB Chief Complaint CHB [...] ECG 12 Lead Edel Cesar MD [address] [facility] [address], [address] [address] Referral ID Status Reason Start Date Expiration Date V isits Requested Visits Authorized [id number] Pending Review 07/05/2023 07/04/2024 1 1 Specialty Diagnoses / Procedures Referred By Contac t Referred To Contact Cardiology Diagnoses Persistent atrial fibrillation (CMS/HCC) Complete heart block (CMS/HCC) Chronic right heart failure (CMS/HCC) Procedures Follow Up In Cardiology Edel Cesar MD [address] [place] [address] Edel Cesar MD [address] [facility] [address] [place] [address] Referral ID Status Reason Start Date Expiration Date V isits Requested Visits Authorized [id number] Authorized 07/05/2023 07/04/2024 1 1 Referral ID Status Reason Start Date Expiration Date V isits Requested Visits Authorized [id number] Pending Review 07/05/2023 07/04/2024 1 1 Specialty Diagnoses / Procedures Referred By Neyl garcia Referred To Contact Diagnoses Primary parkinsonism Fatigue, unspecified type Procedures PROVIDER ORDERED FOLLOW UP OFFICE/OUTPATIENT [facility] 60-74 MINUTES Efren Carbajal DO [address] [place] [address] Referral ID Status Reason Start Date Expiration Date V isits Requested Visits Authorized [id number] Authorized 11/04/2023 02/02/2024 1 1 Additional Source Comments (unrecognized sect ion and content) No Status Records FoundNo Status Records FoundNo Status Records FoundNo Status Records FoundNo Status Records FoundNo Status Records FoundNo Status Records FoundNo Status Records FoundNo Status Records FoundNo Status Records Found INFORMATION SOURCE (unrecogn ized section and content) DATE CREATED AUTHOR 02/28/2022 [employer] DATE CREATED AUTHOR AUTHOR'S ORGANIZ ATION 12/11/2022 [facility] DATE CREATED AUTHOR AUTHOR'S ORGANIZ ATION 05/08/2023 [facility] DATE CREATED AUTHOR AUTHOR'S ORGANIZ ATION 05/08/2023 [facility] DATE CREATED AUTHOR AUTHOR'S ORGANIZ ATION 05/18/2023 [facility] DATE CREATED AUTHOR AUTHOR'S ORGANIZ ATION 08/18/2023 [facility] DATE CREATED AUTHOR AUTHOR'S ORGANIZ ATION 09/03/[address] [facility] DATE CREATED AUTHOR AUTHOR'S ORGANIZ ATION 09/10/2023 [facility] DATE CREATED AUTHOR AUTHOR'S ORGANIZ ATION 10/06/2023 [facility] DATE CREATED AUTHOR AUTHOR'S ORGANIZ ATION 10/12/2023 [facility] Source Comments (unrecognize d section and content) In the event this informatio n is protected by the Federal Confidentiality of Alcohol and Drug Abuse Patient Records regulations: The Federal rules restrict any use of the information to criminally investigate or prosecute any alcohol or drug abuse patient.[facility] HospitalIn the event this information is protected by the Federal Confidentiality of Alcohol and Drug Abuse Patient Records regulations: The Federal rules restrict any use of the information to criminally investigate or prosecute any alcohol or drug abuse patient.[facility] HospitalIn the event this information is protected by the Federal Confidentiality of Alcohol and Drug Abuse Patient Records regulations: The Federal rules restrict any use of the information to criminally investigate or prosecute any alcohol or drug abuse patient.[facility] HospitalIn the event this information is protected by the Federal Confidentiality of Alcohol and Drug Abuse Patient Records regulations: The Federal rules restrict any use of the information to criminally investigate or prosecute any alcohol or drug abuse patient.[facility] HospitalIn the event this information is protected by the Federal Confidentiality of Alcohol and Drug Abuse Patient Records regulations: The Federal rules restrict any use of the information to criminally investigate or prosecute any alcohol or drug abuse patient.[facility] HospitalIn the event this information is protected by the Federal Confidentiality of Alcohol and Drug Abuse Patient Records regulations: The Federal rules restrict any use of the information to criminally investigate or prosecute any alcohol or drug abuse patient.[facility] HospitalIn the event this information is protected by the Federal Confidentiality of Alcohol and Drug Abuse Patient Records regulations: The Federal rules restrict any use of the information to criminally investigate or prosecute any alcohol or drug abuse patient.[facility] HospitalIn the event this information is protected by the Federal Confidentiality of Alcohol and Drug Abuse Patient Records regulations: The Federal rules restrict any use of the information to criminally investigate or prosecute any alcohol or drug abuse patient.[facility] HospitalIn the event this information is protected by the Federal Confidentiality of Alcohol and Drug Abuse Patient Records regulations: The Federal rules restrict any use of the information to criminally investigate or prosecute any alcohol or drug abuse patient.[facility] HospitalIn the event this information is protected by the Federal Confidentiality of Alcohol and Drug Abuse Patient Records regulations: The Federal rules restrict any use of the information to criminally investigate or prosecute any alcohol or drug abuse patient.[facility] HospitalIn the event this information is protected by the Federal Confidentiality of Alcohol and Drug Abuse Patient Records regulations: The Federal rules restrict any use of the information to criminally investigate or prosecute any alcohol or drug abuse patient.[facility] HospitalIn the event this information is protected by the Federal Confidentiality of Alcohol and Drug Abuse Patient Records regulations: The Federal rules restrict any use of the information to criminally investigate or prosecute any alcohol or drug abuse patient.[facility] HospitalIn the event this information is protected by the Federal Confidentiality of Alcohol and Drug Abuse Patient Records regulations: The Federal rules restrict any use of the information to criminally investigate or prosecute any alcohol or drug abuse patient.[facility] HospitalIn the event this information is protected by the Federal Confidentiality of Alcohol and Drug Abuse Patient Records regulations: The Federal rules restrict any use of the information to criminally investigate or prosecute any alcohol or drug abuse patient.[facility] HospitalIn the event this information is protected by the Federal Confidentiality of Alcohol and Drug Abuse Patient Records regulations: The Federal rules restrict any use of the information to criminally investigate or prosecute any alcohol or drug abuse patient.[facility] HospitalIn the event this information is protected by the Federal Confidentiality of Alcohol and Drug Abuse Patient Records regulations: The Federal rules restrict any use of the information to criminally investigate or prosecute any alcohol or drug abuse patient.[facility] HospitalIn the event this information is protected by the Federal Confidentiality of Alcohol and Drug Abuse Patient Records regulations: The Federal rules restrict any use of the information to criminally investigate or prosecute any alcohol or drug abuse patient.[facility] HospitalIn the event this information is protected by the Federal Confidentiality of Alcohol and Drug Abuse Patient Records regulations: The Federal rules restrict any use of the information to criminally investigate or prosecute any alcohol or drug abuse patient.[facility] HospitalIn the event this information is protected by the Federal Confidentiality of Alcohol and Drug Abuse Patient Records regulations: The Federal rules restrict any use of the information to criminally investigate or prosecute any alcohol or drug abuse patient.[facility] Reason for Visit (unrecogniz ed section and content) Reason Onset Date Comments [facility] - Treatment Referral 06/24/2022 [facility] Insurance Authorization 06/24/2022 BERE palacio Pending Reason Comments Clinical Update Medication Question Reason Comments Medication Problem Reason Comments Patient Question Reason Comments No Show Reason Comments Parkinson's Disease Reason Onset Date Comments Refill Request 01/30/2023 Reason Comments Established Patient not sleeping Reason Onset Date Comments [facility] Neurology - Patient Assistance 06/26/2023 [facility] Insurance Authorization 06/26/2023 BERE Appro fatou Reason Comments Follow-up 6 months Specialty Diagnoses / Procedures Referred By Contac t Referred To Contact Diagnoses Persistent atrial fibrillation ([facility]) Procedures ECG 12 Lead Edel Cesar MD [address] [facility] [address], [address] [address] Referral ID Status Reason Start Date Expiration Date V isits Requested Visits Authorized [id number] Pending Review 07/05/2023 07/04/2024 1 1 Reason Comments Refill Request Reason Comments EKG visit Specialty Diagnoses / Procedures Referred By Contac t Referred To Contact Diagnoses Persistent atrial fibrillation ([facility]) Procedures ECG 12 Lead Edel Cesar MD [address] [facility] [address], [address] [address] Referral ID Status Reason Start Date Expiration Date V isits Requested Visits Authorized [id number] Pending Review 07/07/2023 07/06/2024 1 1 Reason [...] MD Other Provider Active Marcia Clifton , [facility]- Other Provider Active Lisy Ugarte MD Other Provider Active Team Status: Inactive Member Role Status Dates Amy Zuñiga MD Primary Care Provider Active Jaylin Pradhan [facility] Attending Provider Active Team Status: Inactive Member Role Status Dates Amy Zuñiga MD Primary Care Provider Active Edel Cesar MD Attending Provider, Referring Provider Active Alining Inspector Relationship Specialty Start Date End Date Amy Zuñiga MD [address] [place] [address] PCP - General 03/06/09 Alining Inspector Relationship Specialty Start Date End Date Amy Zuñiga MD [address] [place] [address] PCP - General 03/06/09 Alining Inspector Relationship Specialty Start Date End Date Amy Zuñiga MD [address] [place] [address] PCP - General 03/06/09 Pamela Briseno, KEKE.DIPLOMA MEDICAL ASSISTANT [address] [place] [address] Specialty Diesel Engine Erector Neurology 08/15/22 Alining Inspector Relationship Specialty Start Date End Date Amy Zuñiga MD [address] [place] [address] PCP - General 03/06/09 Pamela Briseno, KEKE.DIPLOMA MEDICAL ASSISTANT [address] [place] [address] Specialty Diesel Engine Erector Neurology 08/15/22 Alining Inspector Relationship Specialty Start Date End Date Amy Zuñiga MD [address] [place] [address] PCP - General 03/06/09 Pamela Briseno RADIOACTIVITY TECHNICIAN.DIPLOMA MEDICAL ASSISTANT [address] [place] [address] Specialty Diesel Engine Erector Neurology 08/15/22 Team Status: Inactive Member Role Status Dates Amy Zuñiga MD Primary Care Provider Active Roel Mireles MD Attending Provider Active Alining Inspector Relationship Specialty Start Date End Date Amy Zuñiga MD [address] [place], [place] [id number] PCP - General 03/06/09 Pamela Briseno RADIOACTIVITY TECHNICIAN.DIPLOMA MEDICAL ASSISTANT [address] [place] [address] Specialty Diesel Engine Erector Neurology 08/15/22 Team Status: Active Member Role Status Dates Christo Saab MD Primary Care Provider Active Team Status: Inactive Member Role Status Dates Roel Mireles MD Attending Provider Active Christo Saab MD Primary Care Provider Active Alining Inspector Relationship Specialty Start Date End Date Amy Zuñiga MD [address] [place], [place] [id number] PCP - General 03/06/09 Pamela Briseno RADIOACTIVITY TECHNICIAN.DIPLOMA MEDICAL ASSISTANT [address] [place] [address] Specialty Diesel Engine Erector Neurology 08/15/22 Alining Inspector Relationship Specialty Start Date End Date Amy Zuñiga MD [address] [place], [place] [id number] PCP - General 03/06/09 Pamela Briseno APRN.DIPLOMA MEDICAL ASSISTANT [address] [place] [address] Specialty Diesel Engine Erector Neurology 08/15/22 Alining Inspector Relationship Specialty Start Date End Date Amy Zuñiga MD [address] [facility] [address] [place], [place] [id number] PCP - General 03/06/09 Pamela Briseno APRN.CNP [address] [place] [address] Specialty Diesel Engine Erector Neurology 08/15/22 Alining Inspector Relationship Specialty Start Date End Date Amy Zuñiga MD [address] [facility] Amy Zuñiga MD [address] [place], [place] [id number] PCP - General 10/03/22 Team Status: Inactive Member Role Status Dates Christo Saab MD Primary Care Provider Active Roel Mireles MD Attending Provider Active Alining Inspector Relationship Specialty Start Date End Date Amy Zuñiga MD [address] [facility] MD [address] [place], [place] [id number] PCP - General 10/03/22 Team Status: Active [...] August 31, 2023 End: August 31, 2023 Alining Inspector Relationship Specialty Start Date End Date Amy Zuñiga MD [address] [place] [address] PCP - General 03/06/09 Pamela Briseno APRN.DIPLOMA MEDICAL ASSISTANT [address] [place] [address] Specialty Diesel Engine Erector Neurology 08/15/22 Efren Carbajal DO [address] [place] [address] Specialty Diesel Engine Erector Neurology 07/19/23 Alining Inspector Relationship Specialty Start Date End Date Amy Zuñiga MD [address] [place] [address] PCP - General 03/06/09 Pamela Briseno APRN.DIPLOMA MEDICAL ASSISTANT [address] [place] [address] Specialty Diesel Engine Erector Neurology 08/15/22 Efren Carbajal DO [address] [place] [address] Specialty Diesel Engine Erector Neurology 07/19/23 Alining Inspector Relationship Specialty Start Date End Date Amy Zuñiga MD [address] [place] [address] PCP - General 03/06/09 Pamela Briseno APRN.DIPLOMA MEDICAL ASSISTANT [address] [place], [place] [id number] Specialty Diesel Engine Erector Neurology 08/15/22 Efren Carbajal DO [address] [place], [place] [id number] Specialty Diesel Engine Erector Neurology 07/19/23 Alining Inspector Relationship Specialty Start Date End Date Amy Zuñiga MD [address] [place] [address] PCP - General 03/06/09 Pamela Briseno APRN.DIPLOMA MEDICAL ASSISTANT [address] [place] [address] Specialty Diesel Engine Erector Neurology 08/15/22 Efren Carbajal DO [address] [place] [address] Specialty Diesel Engine Erector Neurology 07/19/23 Alining Inspector Relationship Specialty Start Date End Date Amy Zuñiga MD [address] [place] [address] PCP - General 03/06/09 Pamela Briseno APRN.DIPLOMA MEDICAL ASSISTANT [address] [place], [place] [id number] Specialty Diesel Engine Erector Neurology 08/15/22 Efren Carbajal DO [address] [place], [place] [id number] Specialty Diesel Engine Erector Neurology 07/19/23 Goals (unrecognized section and content) [...] BE BASED ON THE PRIMARY CLINICAL RECORDS. [facility]. provides no warranty or guarantee of the accuracy or completeness of information in this document.
--- NOTE | 2023-10-28 21:22 | PC.NURSE ---
pt had skin biopsy on 10/24. 5 bandages present. clean dry and intact
[2023-10-28] MEDS: 0.9 % SODIUM CHLORIDE 1,000 ML 75 ML IV (22:30)
[2023-10-28] MEDS: ATORVASTATIN CALCIUM 20 MG TABLET PO (22:33)
[2023-10-28] MEDS: APIXABAN 5 MG TABLET PO (22:33)
[2023-10-28] MEDS: FLECAINIDE ACETATE 50 MG TABLET PO (23:11)
[2023-10-28] MEDS: CLONAZEPAM 0.5 MG TABLET PO (23:11)
[2023-10-28] MEDS: CARBIDOPA/LEVODOPA 25 MG-100 MG TABLET 1.5 TAB PO (23:11)
[2023-10-29] VITALS (20 sets, daily range): BP systolic 110–124; BP diastolic 63–74; PULSE 71–115; TEMP 36.8–37.9; O2SAT 92–98
[2023-10-29] MEDS: LEVOTHYROXINE SODIUM 100 MCG TABLET PO (05:34)
[2023-10-29] MEDS: CARBIDOPA/LEVODOPA CR 25-100 MG TABLET 2 TAB PO ×4 (05:34→21:42)
[2023-10-29] MEDS: CARBIDOPA/LEVODOPA 25 MG-100 MG TABLET 1.5 TAB PO ×4 (05:34→21:43)
[2023-10-29 05:52] LABS: Basophils Absolute Auto 0.1 10^3/uL (0.0-0.1); Basophils Percent Auto 0.3 % (0.2-2.0); Hemoglobin 11.7 g/dL (14.0-18.0); Immature Granulocytes Pct Auto 0.6 % (0.0-0.5); Lymphocytes Absolute Auto 0.8 10^3/uL (1.2-3.8); Lymphocytes Percent Auto 5.3 % (20.5-60.0); Mean Corpuscular HGB Conc 31.6 g/dL (29.9-35.2); Mean Corpuscular Hemoglobin 27.8 pg (25.9-34.0); Mean Corpuscular Volume 87.9 fL (80.0-94.0); Mean Platelet Volume 10.7 fL (9.5-13.5); Monocytes Absolute Auto 1.6 10^3/uL (0.3-0.8); Monocytes Percent Auto 10.1 % (1.7-12.0); Neutrophils Absolute Auto 13.2 10^3/uL (1.4-6.5); Neutrophils Percent Auto 83.7 % (43.0-75.0); Platelet Count 150 10^3/uL (150-450); Red Blood Count 4.21 10^6/uL (4.70-6.10); Red Cell Distribution Width 16.2 % (11.0-15.0); White Blood Count 15.7 10^3/uL (4.0-11.0)
[2023-10-29 06:13] LABS: Alanine Aminotransferase <6 U/L (16-63); Albumin Globulin Ratio 1.1; Albumin Level 3.2 g/dL (3.4-5.0); Alkaline Phosphatase 94 U/L (46-116); Anion Gap 12.6; Aspartate Amino Transferase 12 U/L (15-37); BUN Creatinine Ratio 29.4; Bilirubin Total 0.9 mg/dL (0.2-1.0); Calcium 8.5 mg/dL (8.5-10.1); Carbon Dioxide 27.4 mmol/L (21.0-32.0); Chloride 102 mmol/L (98-107); Estimated GFR (African America >60 (>=60); Estimated GFR (Non-African Ame 50 (>=60); Glucose 92 mg/dL (74-106); Sodium 138 mmol/L (136-145); Total Protein 6.2 g/dL (6.4-8.2)
[2023-10-29] MEDS: MUPIROCIN 2% OINTMENT 22 GRAM TUBE 1 APPLIC TOPICAL ×2 (08:59→21:44)
[2023-10-29] MEDS: FLECAINIDE ACETATE 50 MG TABLET PO ×2 (09:00→21:42)
[2023-10-29] MEDS: APIXABAN 5 MG TABLET PO ×2 (09:00→21:42)
[2023-10-29] MEDS: DONEPEZIL HCL 10 MG TABLET PO (09:01)
[2023-10-29] MEDS: CHLORHEXIDINE GLUCONATE 0.12% 15 ML TP (09:01)
[2023-10-29] MEDS: CEFTRIAXONE 1,000 MG in 0.9 % SODIUM CHLORIDE 50 ML 100 MG IV (09:29)
[2023-10-29 09:39] LABS: Troponin I High Sensitivity 25.1 pg/mL (4.0-76.1)
[2023-10-29 09:40] LABS: Adenovirus NOT DETECTED (NOT DETECTE); Bordetella parapertussis NOT DETECTED (NOT DETECTE); Coronavirus 229E NOT DETECTED (NOT DETECTE); Coronavirus HKU1 NOT DETECTED (NOT DETECTE); Coronavirus NL63 NOT DETECTED (NOT DETECTE); Coronavirus OC43 NOT DETECTED (NOT DETECTE); Human Metapneumovirus NOT DETECTED (NOT DETECTE); Human Rhinovirus/Enterovirus NOT DETECTED (NOT DETECTE); Influenza A NOT DETECTED (NOT DETECTE); Influenza B NOT DETECTED (NOT DETECTE); Mycoplasma pneumoniae NOT DETECTED (NOT DETECTE); Parainfluenza Virus 1 NOT DETECTED (NOT DETECTE); Parainfluenza Virus 2 NOT DETECTED (NOT DETECTE); Parainfluenza Virus 3 NOT DETECTED (NOT DETECTE); Parainfluenza Virus 4 NOT DETECTED (NOT DETECTE); Respiratory Syncytial Virus NOT DETECTED (NOT DETECTE); SARS-CoV-2 NOT DETECTED (NOT DETECTE)
[2023-10-29 09:44] LABS: Lactate/Lactic Acid 2.6 mmol/L (0.4-2.0)
[2023-10-29] MEDS: LEVOFLOXACIN IN DEXTROSE 5 % 750 MG/150 ML IV.SOLN 100 MG IV (10:11)
[2023-10-29] MEDS: IPRATROPIUM BROMIDE 0.5 MG/2.5 ML VIAL.NEB IH ×3 (10:16→23:21)
--- NOTE | 2023-10-29 11:46 | P.HP_ITS ---
HPI H&P: HPI History of Present Illness Chief complaint: acute renal insufficiency, hematuria, dehydration Narrative: Patient presented to the emergency room with increasing weakness and some confusion, found to have acute renal failure, hematuria and dehydration. When I saw patient up on the medical surgical floor, he was able to be aroused, he was sleeping upon entering the room, able to answer some questions but then falls right back to sleep. Opioid HPI Opioid Management Most Recent Opioid Data: Last Pain Scale 7 10/28/23 22:07 Last Pain Assessment 10/29/23 14:00 Last ED Pain Assessment 10/28/23 19:02 Last MAR Pain Assessment 10/29/23 14:07 Last ORT Total Score 0 10/28/23 20:58 Last ORT Risk Category Low Risk 10/28/23 20:58 Review of Systems ROS Status of ROS 10 or more systems reviewed and unremark able except as noted in history and below [facility] Medical History (Updated 10/28/23 @ 21:17 by Jo Javier) Cardiac defibrillator in place ?Z95.810 - Presence of automatic (implantable) cardiac defibrillator (ICD-10) Family History (Updated 10/28/23 @ 21:18 by Jo Javier) Other Family history of cancer Family history of diabetes mellitus Family history of hypertension Social History (Updated 10/28/23 @ 21:19 by Jo Javier) Within the past year, how often did you have a drink containing alcohol: never Within the past year, how many standard drinks containing alcohol did you have on a typical day: 1 or 2 Within the past year, how often did you have six or more drinks on one occasion: never Total score: 0 Score interpretation: A score less than 4 is consistent with normal alcohol consumption. Smoking status: Former smoker Non-prescribed substance use: denies use Previous occupational history: retired Are you now , , , , never or living with a partner: In a typical week, how many times do you talk on the telephone with family, friends, or neighbors: 3 or more times per week How often do you get together with friends or relatives: 3 or more times per week How often do you attend gnosticism or gnosticist services: never Little interest or pleasure in doing things: not at all Feeling down, depressed, or hopeless: not at all Feel stressed/tense/nervous/anxious/difficulty sleeping: not at all Do you think of yourself as: straight/heterosexual Gender Identity: male Meds Home Medications and Allergies Home Medications ?Medication ?Instructions ?Recorded ?Confirmed ?Type etodolac 400 mg tablet (Lodine) 400 mg PO Q12H PRN pain #20 tabs 03/09/23 10/28/23 Rx apixaban 5 mg tablet (Eliquis) 5 mg PO BID 10/28/23 10/28/23 History atorvastatin 20 mg tablet 20 mg PO QPM 10/28/23 10/28/23 History carbidopa 25 mg-levodopa 100 mg 1.5 tab PO QID 10/28/23 10/28/23 History tablet carbidopa ER 50 mg-levodopa 200 mg 1 tab PO QID 10/28/23 10/28/23 History tablet,extended release chlorhexidine gluconate 4 % 1 applic topical DAILY 10/28/23 10/28/23 History topical liquid (Hibiclens) clonazepam 0.5 mg tablet 0.5 mg PO QPM 10/28/23 10/28/23 History donepezil 10 mg tablet 10 mg PO DAILY 10/28/23 10/28/23 History flecainide 50 mg tablet 50 mg PO BID 10/28/23 10/28/23 History furosemide 40 mg tablet 40 mg PO DAILY 10/28/23 10/28/23 History levothyroxine 100 mcg tablet 100 mcg PO DAILY 10/28/23 10/28/23 History melatonin 10 mg capsule 10 mg PO DAILY 10/28/23 10/28/23 History mupirocin 2 % topical ointment 1 applic topical BID 10/28/23 10/28/23 History Allergies Allergy/AdvReac Type Severity Reaction Status Date / Time bacitracin Allergy Intermediate Verified 03/09/23 10:45 [From Neosporin ([id number])] neomycin Allergy Intermediate Verified 03/09/23 10:45 [From Neosporin ([id number])] polymyxin B Allergy Intermediate Verified 03/09/23 10:45 [From Neosporin ([id number])] Exam Constitutional Vital Signs, click to edit/add: Last Vital Signs Temp 99.4 F 10/29/23 04:00 Pulse 73 10/29/23 11:00 Resp 18 10/29/23 11:00 BP 124/67 10/29/23 11:00 Pulse Ox 96 10/29/23 11:00 O2 Del Method Room Air 10/29/23 11:00 Documenting provider has reviewed patient's vital signs: yes Common normals: apparent distress (Somnolence but no respiratory distress) Chest Common normals: inspection of chest normal Respiratory Common normals: normal respiratory effort Auscultation: rhonchi; no egophony Cardio Common normals: regular rate and regular rhythm GI Common normals: Normal to inspection, nondistended, normoactive bowel sounds present Extremity Common normals: normal to inspection, full ROM and no clubbing, cyanosis or edema Results Labs Labs: Short CBC 10/28/23 10/29/23 Range/Units 18:45 04:05 WBC 14.0 H 15.7 H (4.0-11.0) 10^3/uL Hgb 12.4 L 11.7 L (14.0-18.0) g/dL Hct 38.7 L 37.0 L (42.0-54.0) % Plt Count 162 150 (150-450) 10^3/uL BMP 10/28/23 10/29/23 18:45 04:05 Sodium 137 138 Potassium 4.7 4.0 Chloride 100 102 Carbon Dioxide 28.9 27.4 BUN 48.0 H 40.0 H Creatinine 1.89 H 1.36 H Glucose 108 H 92 Calcium 8.9 8.5 Liver Function 10/28/23 10/29/23 Range/Units 18:45 04:05 Total Bilirubin 0.6 0.9 (0.2-1.0) mg/dL AST 12 L 12 L (15-37) U/L ALT 9 L <6 L (16-63) U/L Alkaline Phosphatase 121 H 94 (46-116) U/L Albumin 3.7 3.2 L (3.4-5.0) g/dL Urine 10/28/23 Range/Units 19:50 Urine Color Yellow (YELLOW) Urine Clarity Clear (CLEAR) Urine pH 6.0 (5.0-9.0) Ur Specific [place]coe 1.020 (1.005-1.025) Urine Protein Trace (NEG/TRACE) mg/dL Urine Glucose (UA) Negative (NEGATIVE) mg/dL Assessment and Plan Assessment and Plan (1) Dehydration: (2) Acute renal insufficiency: Plan Sinus tachycardia, acute kidney injury with baseline creatinine of 1.37, now 1.89 139% above baseline, bandemia, positive lactate, leukocytosis, elevated BNP secondary to UTI and right lower lobe pneumonia and resulting in severe sepsis. With elevated BNP unable to give aggressive fluid resuscitation, check echocardiogram, IV antibiotics, blood cultures urine cultures pending. Try to obtain sputum culture, with altered mental status check ammonia and thyroid levels as well Altered mental status-likely secondary to the above, monitor daily, no focal neurological deficits. Can be difficult to assess secondary to his Parkinson's Parkinson's-continue with home medications Acute kidney injury-as outlined above, monitor daily Elevated BNP possible acute systolic heart failure History of coronary artery disease-check echo Scalp lesion secondary to recent biopsy no signs of infection Inpatient criteria; patient initially admitted to observation but when further testing was completed patient found to have severe sepsis with the altered mental status and acute renal insufficiency secondary to acute UTI and right lower lobe pneumonia with acute systolic heart failure-medically necessary treatment will span more than 2 midnights.
[2023-10-29 12:25] LABS: Thyroid Stimulating Hormone 0.674 uIU/mL (0.358-3.740)
[2023-10-29] MEDS: DOCUSATE SODIUM 100 MG CAPSULE PO ×2 (12:27→21:42)
[2023-10-29 12:35] LABS: Ammonia 28 umol/L (11-32)
[2023-10-29] MEDS: ACETAMINOPHEN 500 MG TABLET 1000 MG PO (14:07)
[2023-10-29] MEDS: ATORVASTATIN CALCIUM 20 MG TABLET PO (21:42)
[2023-10-29] MEDS: CLONAZEPAM 0.5 MG TABLET PO (21:42)
[2023-10-30] VITALS (23 sets, daily range): BP systolic 100–121; BP diastolic 54–71; PULSE 55–113; TEMP 36.6–37; O2SAT 90–98
[2023-10-30] MEDS: IPRATROPIUM BROMIDE 0.5 MG/2.5 ML VIAL.NEB IH ×4 (04:22→22:43)
[2023-10-30 05:44] LABS: Basophils Percent Auto 0.3 % (0.2-2.0); Hematocrit 36.4 % (42.0-54.0); Hemoglobin 11.5 g/dL (14.0-18.0); Immature Granulocytes Abs Auto 0.07 10^3/uL (0.00-0.03); Immature Granulocytes Pct Auto 0.6 % (0.0-0.5); Lymphocytes Absolute Auto 0.5 10^3/uL (1.2-3.8); Lymphocytes Percent Auto 4.5 % (20.5-60.0); Mean Corpuscular HGB Conc 31.6 g/dL (29.9-35.2); Mean Corpuscular Volume 88.6 fL (80.0-94.0); Mean Platelet Volume 10.7 fL (9.5-13.5); Monocytes Absolute Auto 1.1 10^3/uL (0.3-0.8); Monocytes Percent Auto 10.1 % (1.7-12.0); Neutrophils Absolute Auto 9.3 10^3/uL (1.4-6.5); Neutrophils Percent Auto 84.5 % (43.0-75.0); Platelet Count 128 10^3/uL (150-450); Red Blood Count 4.11 10^6/uL (4.70-6.10); Red Cell Distribution Width 16.4 % (11.0-15.0)
[2023-10-30] MEDS: CARBIDOPA/LEVODOPA 25 MG-100 MG TABLET 1.5 TAB PO ×4 (06:01→17:57)
[2023-10-30] MEDS: CARBIDOPA/LEVODOPA CR 25-100 MG TABLET 2 TAB PO ×4 (06:01→17:57)
[2023-10-30] MEDS: LEVOTHYROXINE SODIUM 100 MCG TABLET PO (06:01)
--- NOTE | 2023-10-30 06:10 | CA_ITS ---
Patient Name: PORFIRIO GUSMAN MR#: [id number] : 1940 Exam Date: 10/30/2023 Ordering Doctor: DR Christiano Merchant . ECHOCARDIOGRAM REPORT PROCEDURE: CA ECHO DOPPLER COMPLETE INDICATIONS: elevated BNP COMPARISON: None. DESCRIPTION: COMPLETE ECHOCARDIOGRAM Real-time transthoracic echocardiography with 2D, M-mode, spectral and color flow Doppler performed. QUALITY: Technical quality was good. LEFT VENTRICLE: Normal chamber size. Normal left ventricular wall thickness. Global left ventricular systolic function is mildly to moderately decreased. LV EF: Estimated left ventricular ejection fraction is 40-45% DIASTOLIC: ATRIAL SEPTUM: LEFT ATRIUM: Severe dilatation. RIGHT ATRIUM: Severe dilatation. RIGHT VENTRICLE: Mild dilatation. Mildly decreased right ventricular systolic function. Pacer wire present. TRICUSPID VALVE: Normal mobility and thickness. No stenosis with moderate. Moderate pulmonary hypertension. RVSP 48 mmHg MITRAL VALVE: Mildly thickened with normal mobility. No evidence of mitral valve stenosis. Mild mitral annular calcification. Moderate to severe mitral regurgitation. Systolic blunting of flow by PW doppler in the Pulmonary veins. AORTIC VALVE: Normal trileaflet appearance. Mildly calcified aortic valve. Normal leaflet mobility. No evidence of aortic valve stenosis. Trivial aortic regurgitation. AORTIC ROOT: Normal diameter and appearance. PULMONIC VALVE: Normal thickness and mobility. No stenosis. Mild regurgitation. PERICARDIUM: No evidence of pericardial effusion. IVC: Collapses with inspirations. Normal size PLEURA: CONCLUSION: 1. Left ventricular systolic function is mildly to moderately reduced. Estimated EF is 40-45%. 2. Mildly reduced right ventricular systolic function. 3. Severe biatrial dilatation. 4. Moderate to severe mitral regurgitation. 5. Moderate tricuspid regurgitation. 6. Moderately elevated right sided pressures. RVSP is 48 mmHg. 7. A transesophageal echocardiogram is recommended for better assessment of the valvular regurgitation. Adult Echocardiography Procedure Report Left Ventricle LVEDD (3.7 - 5.6 cm): 5.11 cm LVESD (2.2 - 4.0 cm): 3.89 cm LVIVS thickness (0.6 - 1.2 cm): 1.03 cm LVPW thickness (0.5 - 1.0 cm): 1.13 cm e': 0.05 m/s E - e': 13.66 LVOT Max Gradient: 2.23 mm[Hg] LVOT Area (cm2): 0.75 m/s Peak Velocity (LVOT): 0.75 m/s Mean Velocity (LVOT): 0.47 m/s LVOT Diameter 2.04 cm Left Ventricular Ejection Fraction: 40-45 % Left Atrium LA Volume Index (2D A2C): 86.64 ml/m2 Left Atrium Systolic Dimension: 4.31 cm Mitral Valve MV E to A Ratio: 2.00 Mitral Valve A-Wave Peak Velocity: 0.36 m/s Mitral Valve E-Wave Peak Velocity: 0.73 m/s Right Ventricle RV Internal Diastolic Dimension: 3.76 cm Aorta AO Root Diam: 3.03 cm Ascending Ao Diam: 2.83 cm Aortic Valve AoV Area (Peak Abner): 1.97 cm2, 1.97 cm2 AoV Area (VTI): 2.02 cm2, 2.02 cm2 Peak Velocity(Antegrade Flow): 1.24 m/s Peak Gradient(Antegrade Flow): 6.18 mm[Hg] Mean Velocity(Antegrade Flow): 0.86 m/s Mean Gradient(Antegrade Flow): 3.49 mm[Hg] Velocity Time Integral: 22.16 cm Tricuspid Valve Peak Velocity (Regurgitant Flow): 2.79 m/s, 2.80 m/s, 2.72 m/s, 2.98 m/s, 3.17 m/s Pulmonic Valve Mean Gradient: 1.82 mm[Hg], 2.67 mm[Hg] Mean Velocity: 0.60 m/s, 0.78 m/s Peak Velocity: 1.03 m/s Peak Gradient: 3.88 mm[Hg], 4.61 mm[Hg] Right Atrium Right Atrium Systolic Pressure: 93.46 ml, 93.46 ml Dictated by: Massimo Maddox M.D. on 10/31/2023 at 18:36 Approved by: Massimo Maddox M.D. on 10/31/2023 at 18:47
[2023-10-30 06:13] LABS: Alanine Aminotransferase 10 U/L (16-63); Albumin Globulin Ratio 0.9; Alkaline Phosphatase 79 U/L (46-116); Anion Gap 14.1; Aspartate Amino Transferase 15 U/L (15-37); BUN Creatinine Ratio 25.2; Bilirubin Total 0.8 mg/dL (0.2-1.0); Calcium 8.8 mg/dL (8.5-10.1); Chloride 101 mmol/L (98-107); Estimated GFR (African America 55 (>=60); Estimated GFR (Non-African Ame 46 (>=60); Globulin 3.4 g/dL; Glucose 98 mg/dL (74-106); Potassium 4.1 mmol/L (3.5-5.1); Sodium 138 mmol/L (136-145); Total Protein 6.4 g/dL (6.4-8.2)
--- NOTE | 2023-10-30 08:43 | P.PN_ITS ---
Progress Note: Subjective Subjective Interval history: Patient much more alert this morning. No new complaints. Denies shortness of breath. Exam Constitutional Vital Signs, click to edit/add: Last Vital Signs Temp 98.4 F 10/30/23 08:14 Pulse 75 10/30/23 08:14 Resp 18 10/30/23 08:14 BP 100/60 10/30/23 08:14 Pulse Ox 97 10/30/23 08:14 O2 Del Method Room Air 10/30/23 08:14 Documenting provider has reviewed patient's vital signs: yes Common normals: apparent distress (Somnolence but no respiratory distress) Chest Common normals: inspection of chest normal Respiratory Common normals: normal respiratory effort Auscultation: rhonchi; no egophony Cardio Common normals: regular rate and regular rhythm GI Common normals: Normal to inspection, nondistended, normoactive bowel sounds present Extremity Common normals: normal to inspection, full ROM and no clubbing, cyanosis or edema Progress Note: Objective Labs Labs: Short CBC 10/30/23 Range/Units 03:58 WBC 11.0 (4.0-11.0) 10^3/uL Hgb 11.5 L (14.0-18.0) g/dL Hct 36.4 L (42.0-54.0) % Plt Count 128 L (150-450) 10^3/uL BMP 10/30/23 03:58 Sodium 138 Potassium 4.1 Chloride 101 Carbon Dioxide 27.0 BUN 37.0 H Creatinine 1.47 H Glucose 98 Calcium 8.8 Liver Function 10/30/23 Range/Units 03:58 Total Bilirubin 0.8 (0.2-1.0) mg/dL AST 15 (15-37) U/L ALT 10 L (16-63) U/L Alkaline Phosphatase 79 (46-116) U/L Albumin 3.0 L (3.4-5.0) g/dL Progress Note: A&P Assessment and Plan (1) Dehydration: (2) Acute renal insufficiency: Plan Admited with: Sinus tachycardia, acute kidney injury with baseline creatinine of 1.37, now 1.89 139% above baseline, bandemia, positive lactate, leukocytosis, elevated BNP secondary to UTI and right lower lobe pneumonia and resulting in severe sepsis. With elevated BNP unable to give aggressive fluid resuscitation, -echocardiogram still pending, will continue with current treatment plan as patient overall is improving. Culture should be back tomorrow. Altered mental status-likely secondary to the above, monitor daily, no focal neurological deficits. Much improved today Parkinson's-continue with home medications Acute kidney injury-as outlined above, monitor daily-up slightly today Elevated BNP possible acute systolic heart failure History of coronary artery disease-check echo, still pending Scalp lesion secondary to recent biopsy no signs of infection Inpatient criteria; patient initially admitted to observation but when further testing was completed patient found to have severe sepsis with the altered mental status and acute renal insufficiency secondary to acute UTI and right lower lobe pneumonia with acute systolic heart failure-medically necessary treatment will span more than 2 midnights. Possible discharge tomorrow, depending on echo results may see you for 2 additional days ?
[2023-10-30] MEDS: APIXABAN 5 MG TABLET PO ×2 (09:00→21:08)
[2023-10-30] MEDS: DONEPEZIL HCL 10 MG TABLET PO (09:01)
[2023-10-30] MEDS: FLECAINIDE ACETATE 50 MG TABLET PO ×2 (09:01→21:08)
[2023-10-30] MEDS: DOCUSATE SODIUM 100 MG CAPSULE PO ×2 (09:01→21:08)
[2023-10-30] MEDS: CEFTRIAXONE 1,000 MG in 0.9 % SODIUM CHLORIDE 50 ML 100 MG IV (09:05)
--- NOTE | 2023-10-30 09:11 | CM.NOTE ---
Rounds made with Dr. Merchant, PT and OT will evaluate pt today for discharge planning. No discharge today.
--- NOTE | 2023-10-30 09:49 | CM.NOTE ---
Important Message From Medicare discussed with pt, pt verbalizes understanding and signs paper. Original given to pt and copy placed in pt's chart.
[2023-10-30] MEDS: FUROSEMIDE 40 MG/4 ML VIAL 60 MG IVP (09:53)
[2023-10-30] MEDS: MUPIROCIN 2% OINTMENT 22 GRAM TUBE 1 APPLIC TOPICAL ×2 (10:36→21:17)
[2023-10-30] MEDS: HIBICLENS 1 EACH TP (10:38)
--- NOTE | 2023-10-30 10:55 | SWNOTE1 ---
SW met with pt and son in room. Nursing was in room as well speaking with pt and son as well. Pt does live at home, his 2 sons alternate caring for him and staying with him. Pt voices he is feeling weaker and needs rehab. SW did provide pt and son with list from medicare.gov with star ratings. Pt's son voices he wants him to stay in [place]. Nursing had questions for pt and son, SW to stop back in. SW stopped back and pt was in the bathroom.
--- NOTE | 2023-10-30 11:46 | SWNOTE1 ---
SW attempted to speak to pt and son again, but someone was in room doing a scan, SW to check back.
--- NOTE | 2023-10-30 12:35 | PC.NURSE ---
Pt heard yelling from inside bathroom inside pt room 201. Nursing staff entered room to find pt sitting on buttocks on floor in bathroom. Lifted up with assist of two nurses, one under each arm. Skin tear to rt upper arm and left hand fingers. Pt states he thinks he lost his balance despite using walker. Placed back to bed. VS taken and stable. Pt states he did not hit his head, but rather fell on his butt! No c/o pain anywhere on body. Bed alarm set on bed. Dr Merchant called with no orders received at this time. Skin tears dressed per Tammy DUCKWORTH.
[2023-10-30 12:52] LABS: A. calcoaceticus-baumannii Cpx NOT DETECTED (NOT DETECTE); Bacteroides fragilis NOT DETECTED (NOT DETECTE); Candida albicans NOT DETECTED (NOT DETECTE); Candida auris NOT DETECTED (NOT DETECTE); Candida glabrata NOT DETECTED (NOT DETECTE); Candida krusei NOT DETECTED (NOT DETECTE); Candida parapsilosis NOT DETECTED (NOT DETECTE); Candida tropicalis NOT DETECTED (NOT DETECTE); Cryptococcus neoformans/gattii NOT DETECTED (NOT DETECTE); Enterobacter cloacae complex NOT DETECTED (NOT DETECTE); Enterobacterales NOT DETECTED (NOT DETECTE); Enterococcus faecium NOT DETECTED (NOT DETECTE); Haemophilus influenzae NOT DETECTED (NOT DETECTE); Klebsiella aerogenes NOT DETECTED (NOT DETECTE); Klebsiella pneumoniae group NOT DETECTED (NOT DETECTE); Listeria monocytogenes NOT DETECTED (NOT DETECTE); Neisseria meningitidis NOT DETECTED (NOT DETECTE); Proteus spp. NOT DETECTED (NOT DETECTE); Pseudomonas aeruginosa NOT DETECTED (NOT DETECTE); Salmonella spp. NOT DETECTED (NOT DETECTE); Serratia marcescens NOT DETECTED (NOT DETECTE); Staphylococcus epidermidis NOT DETECTED (NOT DETECTE); Staphylococcus lugdunensis NOT DETECTED (NOT DETECTE); Staphylococcus spp. NOT DETECTED (NOT DETECTE); Stenotrophomonas maltophilia NOT DETECTED (NOT DETECTE); Streptococcus agalactiae NOT DETECTED (NOT DETECTE); Streptococcus pneumoniae NOT DETECTED (NOT DETECTE); Streptococcus pyogenes NOT DETECTED (NOT DETECTE); Streptococcus spp. NOT DETECTED (NOT DETECTE)
[2023-10-30 12:53] LABS: Source BLOOD; vanA/B NOT DETECTED (NOT DETECTE)
[2023-10-30 12:54] LABS: Enterococcus faecalis DETECTED (NOT DETECTE)
--- NOTE | 2023-10-30 14:37 | SWNOTE1 ---
SW stopped back in room and pt's son was not in room, pt was falling asleep. SW called pt's son, Cristian, and spoke with him about rehab. Pt's son voiced it was up to pt. Cristian is coming back after he gets a few more things done and we will have conversation together with pt.
--- NOTE | 2023-10-30 14:46 | PC.NURSE ---
notified family of patients fall.
--- NOTE | 2023-10-30 20:06 | PC.NURSE ---
bed bath given and pads/gowns/pillow case and sheets changed. Pt's coccyxx is michael and also in groin near scrotum. Areas cleansed, dried then dusted with powder. Disposable Wash cloth placed between scrotum and groin to keep skin from touching pt then turned onto his lt side. Oral care done. Side rails up and bed alarm test conductor light in reach
[2023-10-30] MEDS: CLONAZEPAM 0.5 MG TABLET PO (21:08)
[2023-10-30] MEDS: ATORVASTATIN CALCIUM 20 MG TABLET PO (21:08)
[2023-10-30] MEDS: CARBIDOPA/LEVODOPA CR 25-100 MG TABLET 4 TAB PO (21:12)
[2023-10-31] VITALS (19 sets, daily range): BP systolic 105–153; BP diastolic 63–85; PULSE 74–90; TEMP 36.4–36.9; O2SAT 93–99
[2023-10-31] MEDS: IPRATROPIUM BROMIDE 0.5 MG/2.5 ML VIAL.NEB IH ×4 (04:46→22:54)
[2023-10-31 04:59] LABS: Basophils Percent Auto 0.5 % (0.2-2.0); Eosinophils Percent Auto 0.6 % (0.9-7.0); Hematocrit 35.6 % (42.0-54.0); Hemoglobin 11.3 g/dL (14.0-18.0); Immature Granulocytes Abs Auto 0.04 10^3/uL (0.00-0.03); Immature Granulocytes Pct Auto 0.6 % (0.0-0.5); Lymphocytes Absolute Auto 0.7 10^3/uL (1.2-3.8); Lymphocytes Percent Auto 10.4 % (20.5-60.0); Mean Corpuscular HGB Conc 31.7 g/dL (29.9-35.2); Mean Corpuscular Hemoglobin 28.2 pg (25.9-34.0); Mean Corpuscular Volume 88.8 fL (80.0-94.0); Mean Platelet Volume 10.8 fL (9.5-13.5); Monocytes Percent Auto 15.6 % (1.7-12.0); Neutrophils Absolute Auto 4.8 10^3/uL (1.4-6.5); Neutrophils Percent Auto 72.3 % (43.0-75.0); Platelet Count 133 10^3/uL (150-450); Red Blood Count 4.01 10^6/uL (4.70-6.10); Red Cell Distribution Width 16.3 % (11.0-15.0); White Blood Count 6.7 10^3/uL (4.0-11.0)
[2023-10-31 05:25] LABS: Alanine Aminotransferase <6 U/L (16-63); Albumin Globulin Ratio 0.9; Albumin Level 2.9 g/dL (3.4-5.0); Alkaline Phosphatase 79 U/L (46-116); Anion Gap 11.5; Aspartate Amino Transferase 15 U/L (15-37); BUN Creatinine Ratio 28.8; Bilirubin Total 0.8 mg/dL (0.2-1.0); Calcium 8.6 mg/dL (8.5-10.1); Chloride 101 mmol/L (98-107); Estimated GFR (African America >60 (>=60); Estimated GFR (Non-African Ame 59 (>=60); Globulin 3.3 g/dL; Glucose 94 mg/dL (74-106); Potassium 3.5 mmol/L (3.5-5.1); Sodium 137 mmol/L (136-145); Total Protein 6.2 g/dL (6.4-8.2)
[2023-10-31] MEDS: CARBIDOPA/LEVODOPA 25 MG-100 MG TABLET 1.5 TAB PO ×4 (05:53→18:02)
[2023-10-31] MEDS: CARBIDOPA/LEVODOPA CR 25-100 MG TABLET 2 TAB PO ×4 (05:53→18:02)
[2023-10-31] MEDS: LEVOTHYROXINE SODIUM 100 MCG TABLET PO (05:54)
[2023-10-31] MEDS: DOCUSATE SODIUM 100 MG CAPSULE PO ×2 (09:45→21:28)
[2023-10-31] MEDS: CEFTRIAXONE 1,000 MG in 0.9 % SODIUM CHLORIDE 50 ML 100 MG IV (09:45)
[2023-10-31] MEDS: APIXABAN 5 MG TABLET PO ×2 (09:45→21:27)
[2023-10-31] MEDS: FLECAINIDE ACETATE 50 MG TABLET PO ×2 (09:45→21:27)
[2023-10-31] MEDS: HIBICLENS 1 EACH TP (09:46)
[2023-10-31] MEDS: DONEPEZIL HCL 10 MG TABLET PO (09:46)
[2023-10-31] MEDS: MUPIROCIN 2% OINTMENT 22 GRAM TUBE 1 APPLIC TOPICAL ×2 (09:46→21:28)
[2023-10-31] MEDS: 0.9 % SODIUM CHLORIDE 250 ML 10 ML IV (09:50)
--- NOTE | 2023-10-31 09:55 | SWNOTE1 ---
SW spoke to pt and pt's son in room. SW discussed going to SNF for sterngthening for a short term rehab stay. Pt voices he does want to go. SW again reviewed the 2 facilities in [place] with pt and son, son voiced they wanted to stay in [place]. Pt stated he wants to go to [facility]. SW did let pt and son know there is a chance they may not have a bed, but SW will call and find out. SOURAV spoke to Maura at [facility] and she voiced they should have a bed by tomorrow. Referral sent to [facility]. Referral included face sheet, ED note, H&P, provider notes, case management report, wound consult, nursing notes, diagnostic imaging, med list, and PT/OT notes.
--- NOTE | 2023-10-31 10:18 | P.PN_ITS ---
Progress Note: Subjective Subjective Interval history: Much more awake and alert this morning. Feeling better overall. Exam Constitutional Vital Signs, click to edit/add: Last Vital Signs Temp 98.3 F 10/31/23 08:43 Pulse 82 10/31/23 09:57 Resp 16 10/31/23 08:45 BP 105/63 10/31/23 08:43 Pulse Ox 95 10/31/23 08:43 O2 Del Method Room Air 10/31/23 08:43 Documenting provider has reviewed patient's vital signs: yes Common normals: apparent distress (Somnolence but no respiratory distress) Chest Common normals: inspection of chest normal Respiratory Common normals: normal respiratory effort Auscultation: no rhonchi and no egophony Cardio Common normals: regular rate and regular rhythm GI Common normals: Normal to inspection, nondistended, normoactive bowel sounds present Extremity Common normals: normal to inspection, full ROM and no clubbing, cyanosis or edema Progress Note: Objective Labs Labs: Short CBC 10/31/23 Range/Units 03:56 WBC 6.7 (4.0-11.0) 10^3/uL Hgb 11.3 L (14.0-18.0) g/dL Hct 35.6 L (42.0-54.0) % Plt Count 133 L (150-450) 10^3/uL BMP 10/31/23 03:56 Sodium 137 Potassium 3.5 Chloride 101 Carbon Dioxide 28.0 BUN 34.0 H Creatinine 1.18 Glucose 94 Calcium 8.6 Liver Function 10/31/23 Range/Units 03:56 Total Bilirubin 0.8 (0.2-1.0) mg/dL AST 15 (15-37) U/L ALT <6 L (16-63) U/L Alkaline Phosphatase 79 (46-116) U/L Albumin 2.9 L (3.4-5.0) g/dL Progress Note: A&P Assessment and Plan (1) Dehydration: (2) Acute renal insufficiency: Plan Admited with: Sinus tachycardia, acute kidney injury with baseline creatinine of 1.37, now 1.89 139% above baseline, bandemia, positive lactate, leukocytosis, elevated BNP secondary to UTI and right lower lobe pneumonia and resulting in severe sepsis. With elevated BNP unable to give aggressive fluid resuscitation, check an echocardiogram, continue current treatment plan, blood culture appears to be coming back positive for Enterococcus. Final results tomorrow. Altered mental status-likely secondary to the above, monitor daily, no focal neurological deficits. Much improved today Parkinson's-continue with home medications Anemia-stable, continue to monitor Thrombocytopenia-secondary to the above-improved somewhat today. Acute kidney injury-as outlined above, monitor daily-much improved Elevated BNP possible acute systolic heart failure History of coronary artery disease-check echo, still pending Scalp lesion secondary to recent biopsy no signs of infection Inpatient criteria; patient initially admitted to observation but when further testing was completed patient found to have severe sepsis with the altered mental status and acute renal insufficiency secondary to acute UTI and right lower lobe pneumonia with acute systolic heart failure-medically necessary treatment will span more than 2 midnights. ED stay 1 additional day with blood culture returning positive. Sensitivities and final diagnosis should be back tomorrow. If patient continues to improve possible discharge to home, rehab may be a better bet with his weakness ?
[2023-10-31] MEDS: LEVOFLOXACIN IN DEXTROSE 5 % 750 MG/150 ML IV.SOLN 100 MG IV (10:21)
--- NOTE | 2023-10-31 10:39 | CM.NOTE ---
Rounds made with Dr. Merchant pt will go to skilled rehab when medically ready for discharge.
--- NOTE | 2023-10-31 11:51 | PT.DAILY ---
Physical Therapy Daily Note PT Daily Note/Assess Start: 10/30/23 13:59 Freq: Status: Active Protocol: Document 10/31/23 10:10 ELLI (Rec: 10/31/23 11:51 ELLI [id number]) Physical Therapy Daily Note/Assessment Time In/Time Out Time In 10:10 Time Out 10:29 Subjective Subjective Patient is confused on time of day, thinks it is 1pm in afternoon, and argues with son about time of day. Does agree to therapy. Therapeutic Exercise Time Therapeutic Exercise Minutes (minutes) 9 Therapeutic Exercise Units 0 Therapeutic Exercise Treatment Therapeutic Exercise Treatment Seated exercises in all planes 10 reps and Standing marches 7x Therapeutic Activity Time Therapeutic Activity Minutes (minutes) 10 Therapeutic Activity Units 1 Therapeutic Activity Treatment Chair Transfer Ability Minimum Assist Therapeutic Activity Comments Sit to stand from chair min assist x1. Attempted to ambulate fwd. with RW and min assist x1. Patient has LOB posterior and to the R that required mod to max assist of therapist to correct. Was able to assist patient in steading self on feet. Stand to sit transfer was mod assist as patient stiffened up. After rest break and seated exercises re-attempt ambulation. Sit to stand again was min assist. Standing marches with mod assist from therapist on R side due to lean. Total Physical Therapy Time Total Therapy Minutes 19 Total Physical Therapy Units 1 Summary Daily Note Summary Patient demonstrates decline in balance with PT RX later this morning. OT reported that patient was able to ambulate to bathroom earlier in morning , but was unable to during PT RX. Patient also demonstrated some increase in confusion during RX. Nursing was notified. Highly recommend SNF stay at [facility] to regain strength and improve safety.
--- NOTE | 2023-10-31 12:03 | CM.NOTE ---
Important Message From Medicare discussed with pt, pt verbalizes understanding and signs paper. Original given to pt and copy placed in pt's chart.
--- NOTE | 2023-10-31 12:48 | SWNOTE1 ---
[facility] is able to accept when pt is medically stable for discharge.
[2023-10-31] MEDS: ATORVASTATIN CALCIUM 20 MG TABLET PO (21:27)
[2023-10-31] MEDS: CLONAZEPAM 0.5 MG TABLET PO (21:27)
[2023-10-31] MEDS: CARBIDOPA/LEVODOPA CR 25-100 MG TABLET 4 TAB PO (21:28)
[2023-11-01] VITALS (11 sets, daily range): BP systolic 127–143; BP diastolic 74–78; PULSE 67–79; TEMP 36.2–36.4; O2SAT 93–98
[2023-11-01] MEDS: IPRATROPIUM BROMIDE 0.5 MG/2.5 ML VIAL.NEB IH ×2 (04:47→11:12)
[2023-11-01 05:29] LABS: Basophils Percent Auto 0.2 % (0.2-2.0); Eosinophils Absolute Auto 0.1 10^3/uL (0.0-0.7); Eosinophils Percent Auto 1.4 % (0.9-7.0); Hematocrit 35.2 % (42.0-54.0); Hemoglobin 11.4 g/dL (14.0-18.0); Immature Granulocytes Abs Auto 0.04 10^3/uL (0.00-0.03); Immature Granulocytes Pct Auto 0.6 % (0.0-0.5); Lymphocytes Absolute Auto 0.9 10^3/uL (1.2-3.8); Lymphocytes Percent Auto 14.4 % (20.5-60.0); Mean Corpuscular HGB Conc 32.4 g/dL (29.9-35.2); Mean Corpuscular Hemoglobin 28.2 pg (25.9-34.0); Mean Corpuscular Volume 87.1 fL (80.0-94.0); Mean Platelet Volume 10.9 fL (9.5-13.5); Monocytes Absolute Auto 1.1 10^3/uL (0.3-0.8); Monocytes Percent Auto 17.1 % (1.7-12.0); Neutrophils Absolute Auto 4.3 10^3/uL (1.4-6.5); Neutrophils Percent Auto 66.3 % (43.0-75.0); Platelet Count 157 10^3/uL (150-450); Red Blood Count 4.04 10^6/uL (4.70-6.10); Red Cell Distribution Width 15.8 % (11.0-15.0); White Blood Count 6.5 10^3/uL (4.0-11.0)
[2023-11-01 06:00] LABS: Alanine Aminotransferase 7 U/L (16-63); Albumin Globulin Ratio 0.8; Albumin Level 2.8 g/dL (3.4-5.0); Alkaline Phosphatase 80 U/L (46-116); Anion Gap 11.8; Aspartate Amino Transferase 15 U/L (15-37); Bilirubin Total 0.6 mg/dL (0.2-1.0); Calcium 8.4 mg/dL (8.5-10.1); Carbon Dioxide 26.9 mmol/L (21.0-32.0); Chloride 105 mmol/L (98-107); Estimated GFR (African America >60 (>=60); Estimated GFR (Non-African Ame >60 (>=60); Globulin 3.3 g/dL; Glucose 90 mg/dL (74-106); Potassium 3.7 mmol/L (3.5-5.1); Sodium 140 mmol/L (136-145); Total Protein 6.1 g/dL (6.4-8.2)
[2023-11-01] MEDS: CARBIDOPA/LEVODOPA 25 MG-100 MG TABLET 1.5 TAB PO ×2 (06:28→10:36)
[2023-11-01] MEDS: LEVOTHYROXINE SODIUM 100 MCG TABLET PO (06:28)
[2023-11-01] MEDS: CARBIDOPA/LEVODOPA CR 25-100 MG TABLET 2 TAB PO ×2 (06:29→10:37)
--- NOTE | 2023-11-01 09:05 | P.DS_ITS ---
DS: Providers Provider Date of admission: 10/29/23 08:20 Primary care physician: CHRISTO ORELLANA Consults: 10/29/23 08:20 Occupational Therapy Eval and Treat Routine Reason for consultation: Only if needed for Rehab Has provider been notified: No Physical Therapy Eval and Treat Routine Reason for consultation: Eval and Treat Has provider been notified: No 10/29/23 09:00 Occupational Therapy Eval and Treat Routine Reason for consultation: Weakness Has provider been notified: No Physical Therapy Eval and Treat Routine Reason for consultation: weakness Has provider been notified: No 10/30/23 08:43 Consult to Furnace [employer]ger Routine Reason for consult:: Jail Other reason:: Placement DS: Diagnosis Discharge Diagnosis (1) Dehydration: (2) Acute renal insufficiency: Plan Admited with: Sinus tachycardia, acute kidney injury with baseline creatinine of 1.37, now 1.89 139% above baseline, bandemia, positive lactate, leukocytosis, elevated BNP secondary to UTI and right lower lobe pneumonia and resulting in severe sepsis. With elevated BNP unable to give aggressive fluid resuscitation, check an echocardiogram, continue current treatment plan, blood culture appears to be coming back positive for Enterococcus. Final results tomorrow. Altered mental status-likely secondary to the above, monitor daily, no focal neurological deficits. Much improved today Parkinson's-continue with home medications Anemia-stable, continue to monitor Thrombocytopenia-secondary to the above-improved somewhat today. Acute kidney injury-as outlined above, monitor daily-much improved Elevated BNP possible acute systolic heart failure History of coronary artery disease-check echo, still pending Scalp lesion secondary to recent biopsy no signs of infection Inpatient criteria; patient initially admitted to observation but when further testing was completed patient found to have severe sepsis with the altered mental status and acute renal insufficiency secondary to acute UTI and right lower lobe pneumonia with acute systolic heart failure-medically necessary treatment will span more than 2 midnights. ED stay 1 additional day with blood culture returning positive. Sensitivities and final diagnosis should be back tomorrow. If patient continues to improve possible discharge to home, rehab may be a better bet with his weakness ? ? DS: Summary Hospital Course Hospital Course: Patient presented to emergency with increasing weakness and altered mental status. Found to have possible UTI and bilateral pneumonia. Patient's blood cultures did turn positive for Enterococcus. With treatment with IV antibiotics patient did improve daily. He did have an elevated BNP so echocardiogram was obtained which showed significant valvular disease. Case was discussed with cardiology and can be followed up as an outpatient. Patient's altered mental status is much improved from the first day. Started to have some confusion based on age and his need for rehab. But medically stable for discharge to rehab. Medications see list. Follow-up with PCP after rehab Time Spent with Patient Time attestation: Total time spent providing and/or coordinating discharge services: Exam Constitutional Vital Signs, click to edit/add: Last Vital Signs Temp 97.6 F 11/01/23 08:00 Pulse 76 11/01/23 08:00 Resp 16 11/01/23 08:00 BP 127/74 11/01/23 08:00 Pulse Ox 95 11/01/23 08:00 O2 Del Method Room Air 11/01/23 08:00 Documenting provider has reviewed patient's vital signs: yes Common normals: apparent distress (Somnolence but no respiratory distress) Chest Common normals: inspection of chest normal Respiratory Common normals: normal respiratory effort Auscultation: no rhonchi and no egophony Cardio Common normals: regular rate and regular rhythm GI Common normals: Normal to inspection, nondistended, normoactive bowel sounds present Extremity Common normals: normal to inspection, full ROM and no clubbing, cyanosis or edema DS: Data Data Completed and Pending Labs on day of discharge: Labs from last 24 hours 11/01/23 04:37 WBC 6.5 RBC 4.04 L Hgb 11.4 L Hct 35.2 L MCV 87.1 MCH 28.2 MCHC 32.4 RDW 15.8 H Plt Count 157 MPV 10.9 Neut % (Auto) 66.3 Lymph % (Auto) 14.4 L Fallon % (Auto) 17.1 H Eos % (Auto) 1.4 Baso % (Auto) 0.2 Neut # (Auto) 4.3 Lymph # (Auto) 0.9 L Fallon # (Auto) 1.1 H Eos # (Auto) 0.1 Baso # (Auto) 0.0 Abs Immat Gran (auto) 0.04 H Imm/Tot Granulo (auto) 0.6 H Sodium 140 Potassium 3.7 Chloride 105 Carbon Dioxide 26.9 Anion Gap 11.8 BUN 30.0 H Creatinine 1.00 Est GFR ( Amer) >60 Est GFR (Non-Af Amer) >60 BUN/Creatinine Ratio 30.0 Glucose 90 Calcium 8.4 L Total Bilirubin 0.6 AST 15 ALT 7 L Alkaline Phosphatase 80 NT-Pro-B Natriuret Pep 3041.0 H* Total Protein 6.1 L Albumin 2.8 L Globulin 3.3 Albumin/Globulin Ratio 0.8 Preliminary micro results at discharge 10/29/23 08:55 - Preliminary Blood - Right Enterococcus faecalis 10/29/23 08:50 Blood Culture Result 1 - Preliminary Blood - Left Side Enterococcus faecalis Discharge Plan Discharge Disposition: Xfer SNF Condition: Fair Discharge Medications: New docusate sodium 100 mg Capsule 100 mg PO BID Qty: 60 12RF amoxicillin-pot clavulanate 875-125 mg Tablet 1 tab PO BID Qty: 30 0RF amoxicillin-pot clavulanate 875-125 mg tablet 1 tab PO Q12H Qty: 30 0RF Continued etodolac [Lodine] 400 mg tablet 400 mg PO Q12H PRN (Reason: pain) Qty: 20 0RF Eliquis 5 mg tablet 5 mg PO BID atorvastatin 20 mg tablet 20 mg PO QPM carbidopa-levodopa 25-100 mg tablet 1.5 tab PO QID Patient Comments: 0600,1000,1400,1800 carbidopa-levodopa 50-200 mg tablet extended release 1 tab PO QID Patient Comments: 0600,1000,1400,1800 chlorhexidine gluconate [Hibiclens] 4 % liquid 1 applic TOPICAL DAILY Patient Comments: wash scalp daily donepezil 10 mg tablet 10 mg PO DAILY flecainide 50 mg tablet 50 mg PO BID furosemide 40 mg tablet 40 mg PO DAILY Hold Instructions: Doctor's Order levothyroxine 100 mcg tablet 100 mcg PO DAILY Patient Comments: except 1/2 tab on Monday Rx Instructions: except 1/2 tab on Monday mupirocin 2 % ointment 1 applic TOPICAL BID Patient Comments: apply to scalp Rx Instructions: apply to scalp melatonin 10 mg capsule 10 mg PO DAILY carbidopa-levodopa 50-200 mg tablet extended release 2 tab PO Q24H Rx Instructions: takes at 9pm Discontinued clonazepam 0.5 mg tablet 0.5 mg PO QPM Print Language: Ukrainian 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 Maddox [place] [facility] @ [facility] [phone]
--- NOTE | 2023-11-01 09:27 | CM.NOTE ---
Rounds made with Dr. Merchant, discharge to [place] for skilled therapy today.
--- NOTE | 2023-11-01 09:49 | CM.NOTE ---
2nd Notice for Important Message From Medicare discussed with pt and son, neither voice questions or concerns.
--- NOTE | 2023-11-01 10:29 | SWNOTE1 ---
Pt will be discharge to [facility] skilled.
[2023-11-01] MEDS: DOCUSATE SODIUM 100 MG CAPSULE PO (10:30)
[2023-11-01] MEDS: DONEPEZIL HCL 10 MG TABLET PO (10:30)
[2023-11-01] MEDS: APIXABAN 5 MG TABLET PO (10:30)
[2023-11-01] MEDS: AMOXICILLIN/POTASSIUM CLAV 1 TAB TABLET PO (10:30)
[2023-11-01] MEDS: FLECAINIDE ACETATE 50 MG TABLET PO (10:31)
[2023-11-01] MEDS: MUPIROCIN 2% OINTMENT 22 GRAM TUBE 1 APPLIC TOPICAL (10:34)
[2023-11-01] MEDS: HIBICLENS 1 EACH TP (10:36)
--- NOTE | 2023-11-01 10:45 | SWNOTE1 ---
SW completed HENS.
--- NOTE | 2023-11-01 11:39 | SWNOTE1 ---
DC med rec has been sent to [facility]. SOURAV set up trips for 1:00-1:30. SOURAV notified pt's sons of time as they were in room. [facility] was notified of time as well. SOURAV already completed HENS and updated packet and took to the med/surge floor. Nursing is aware of time as well.
== END 2023-11-01 12:52 | DRG 871 ==
LOC: ER 20:14 → MS 20:48
PROVIDERS: Physician Assistant; Registered Nurse; Admitting Provider Family Medicine; Emergency Provider Emergency Medicine; PCP Family Medicine; Visit Provider Family Medicine
DX: A41.81 Sepsis due to Enterococcus (principal); I50.21 Acute systolic (congestive) heart failure; J18.9 Pneumonia, unspecified organism; N17.9 Acute kidney failure, unspecified; N39.0 Urinary tract infection, site not specified; D62 Acute posthemorrhagic anemia; R65.20 Severe sepsis without septic shock; G20.C Parkinsonism, unspecified; D69.6 Thrombocytopenia, unspecified; I25.10 Atherosclerotic heart disease of native coronary artery without angina pectoris; L98.9 Disorder of the skin and subcutaneous tissue, unspecified; Z79.01 Long term (current) use of anticoagulants; Z79.899 Other long term (current) drug therapy; Z79.890 Hormone replacement therapy; Z87.891 Personal history of nicotine dependence; Z95.810 Presence of automatic (implantable) cardiac defibrillator; Z20.822 Contact with and (suspected) exposure to COVID-19
CPT/HCPCS: 0202U; 36415; 71045; 80053; 81001; 82140; 83605; 83880; 84436; 84443; 84484; 85007; 85025; 85027; 85610; 85730; 87040; 87070; 87086; 87150; 87186; 93005; 93306; 94640; 94667; 94668; 94761; 96361; 96365; 96366; 96367; 96375; 97161; 97165; 97530; 97535; 99285; G0378

== ENCOUNTER 2024-02-28 14:59 | Outpatient (OUT) | payer MEDICARE, SELFPAY ==
--- NOTE | 2024-02-28 15:07 | US_ITS ---
The [address] [address] Patient Name: PORFIRIO GUSMAN MRN: [id number] date: 1940 Sex: M Assigned Patient Location: [place] Current Patient Location: [place] Accession/Order Number: [id number] Exam Date: 02/28/2024 15:10 Report Date: 02/28/2024 17:47 At the request of: NON-STAFF PHYSICIAN Procedure: US venous doppler LE BI CLINICAL DATA: Leg pain for 3 weeks PROCEDURE: Bilateral lower extremity venous duplex ultrasound TECHNIQUE: Gillis-scale, color flow, and waveform spectral analysis was performed of the bilateral lower extremities. FINDINGS: The bilateral common femoral, profunda femoral, femoral, and popliteal veins were compressible. The saphenous veins were compressible. No venous thrombosis was seen. The veins fill with color Doppler. Augmentation was normal. Arterial plaque was noted. US/US venous doppler LE BI IMPRESSION: 1. No acute lower extremity deep venous thrombosis. 2. No superficial venous thrombosis. Electronically authenticated by: Hood JACOBO Date: 02/28/2024 17:47
--- OUTSIDE RECORDS SUMMARY | 2024-02-28 15:08 | XMS_ITS | CCD ---
Author Organization [facility] Inform ion Partnership [facility] Care Team Providers Care Purchasing Manager Name Role Phone Cesar Laguna Unavailable Unavailable Unavailable Amy Zuñiga MD Primary Care Provider Finn FISHERIES TECHNICAL OFFICER.RAMP AGENT, Pamela Unavailable [phone] Amy Zuñiga Unavailable MD Amy Zuñiga Primary Care Provider DO Jordan Gallegos Admit Provider DO Jordan Gallegos Attending Provider [phone] NEAL Fenton Other Provider Unavailable DO Sara Valdes Other Provider [phone] MD Courtney Fleming Other Provider MD Roel Mireles Other Provider [phone] MD dEel Cesar Other Provider [phone] MD Magdaleno Owusu Other Provider KEKE Hopkins Other Provider MD Nica García Other Provider MD Susan Shaw Other Provider MD Domenico Isidro Other Provider Elodia [facility] Marcia Sanchez Other Provider [phone] MD Lisy Ugarte Other Provider [phone] Ayana Miles Unavailable CAITLYN MAGAÑA Consulting Unavailable CHRISTO ORELLANA Primary Care Unavailable AMI ., CAITLYN Attending Unavailable AMI ., CAITLYN Admitting Unavailable TRABOULSSI, DR HOLLINGSWORTH Consulting Unavailab le REYNA, CHRISTOKRISTAN KINGSTON Primary Care Unavailable TRABOULSSI, DR HOLLINGSWORTH Attending [...] Care Unavailable AMI ., CAITLYN Consulting Unavailable JEET POOLE Consulting Unavailable HOY ., DR MUNGUIA Consulting Unavailable HOY ., DR MUNGUIA Attending Unavailable HOY ., DR MUNGUIA Admitting Unavailable ZUÑIGA ., DR AMY Dye Primary Care Unavailable HAY ., DR HOFF Consulting Unavailable KATCIELO, YAHIR Dixon Consulting Unavailable CARMELA, MARLENE Consulting Unavailable PIERRE, [...] Unavailable MD Amy Zuñiga Primary Care Provider [phone] DO Jordan Gallegos Admit Provider DO Jordan Gallegos Attending Provider NELA Fenton Other Provider Unavailable DO Sara Valdes Other Provider MD Courtney Fleming Other Provider [phone] MD Roel Mireles Other Provider MD Edel Cesar Other Provider [phone] MD Magdaleno Owusu Other Provider KEKE Hopkins Other Provider MD Nica García Other Provider MD Susan Shaw Other Provider MD Domenico Isidro Other Provider Elodia, [facility] Marcia Sanchez Other Provider [phone] MD Lisy Ugarte Other Provider [phone] LILIA Pradhan Attending Provider MD Edel Cesar Attending Provider MD Amy Zuñiga Primary Care Provider MD Edel Cesar Referring Provider MD Roel Mireles Attending Provider MD Roel Mireles Attending Provider MD Christo Orellana Primary Care Provider Finn FISHERIES TECHNICAL OFFICER.RAMP AGENT, Pamela Unavailable [phone] EFREN CARBAJAL Referring Unavailable AMY ZUÑIGA Primary Care Unavailable Yogesh, Dr. Amy Ortega Primary Care Unavailab alisha Cesar, Dr. Hollingsworth Attending Unavaila gilbert Zuñiga, Dr. Amy Ortega Primary Care Unavailab alisha [...] Unavailab alisha Cesar, Dr. Hollingsworth Attending Unavaila gilbert Laguna, Dr. Guerrero Primary Care Unavailable Traboulssi, Dr. Hollingsworth Attending Unavaila ble Traboulssi, Dr. Hollingsworth Referring Unavaila ble Zuñiga, Dr. Amy Ortega Primary Care Unavailab le Traboulssi, Dr. Hollingsworth Attending Unavaila ble Traboulssi, Dr. Hollingsworth Referring Unavaila ble Zuñiga, Dr. Amy Ortega Primary Care Unavailab le Traboulssi, Dr. Hollingsworth Attending Unavaila ble Traboulsuzie, Dr. Hollingsworth Referring Unavaila ble Zuñiga, Dr. [...] Care Unavailab Christo Jackson Primary Care Physician Amy Zuñiga MD Primary Care Provider MD Christo Orellana Primary Care Provider [phone] MD Roel Mireles Attending Provider DENISHA Reis Emergency Provider MD Ashwini Clancy Admit Provider MD Ashwini Clancy Attending Provider MD Edel Cesar Attending Provider GosKar newell DOal T Unavailable KAR CARBAJALAL T Attending Unavailable KAR CARBAJALAL T Referring Unavailable AMY ZUÑIGA Primary Care Unavailable AMY ZUÑIGA Primary Care Unavailable CATYTEFREN PIKE T Attending Unavailable ZUÑIGAAMY WATERS Primary Care Unavailable EFREN CARBAJAL T Attending Unavailable AMY ZUÑIGA Primary Care Unavailable CATYTKAR PIKEAL T Attending Unavailable EFREN CARBAJAL T Attending Unavailable AMY ZUÑIGA Primary Care Unavailable Reyna MEJIAChristo Primary Care Provider [phone] TRABVI, MOURHAF Attending Unavailable AMY ZUÑIGA Primary Care Unavailable TRABOULSSI, MOURHAF Referring Unavailable AMY ZUÑIGA Primary Care Unavailable TRABOULSSI, MOURHAF Attending Unavailable AMY ZUÑIGA Primary Care Unavailable TRABOULSSI, MOURHAF Attending Unavailable TRABOULSSI, MOURHAF Referring Unavailable CHRISTO ORELLANA Primary Care Unavailable Christo Orellana Attending Unavailable Christo Orellana Admitting Unavailable MD Chrsito Orellana Primary Care Provider [phone] MD Roel Mireles Attending Provider TORRIE BARAJAS Attending Unavailable TORRIE BARAJAS Attending Unavailable TORRIE BARAJAS Attending Unavailable Traboulssi, Mourhaf Admitting Unavailable Traboulssi, Mourhaf Attending Unavailable Traboulssi, Mourhaf Referring Unavailable Ross, Christo E Primary Care Unavailable Ashwini Clancy Admitting Unavailable Ashwini Clancy Attending Unavailable Ross, Christo E Primary Care Unavailable Roel Mireles Admitting Unavail able Ross, Christo E Primary Care Unavailable Roel Mireles Attending Unavail able Roel Mireles Attending Unavail able Ross, Christo E Primary Care Unavailable Roel Mireles Admitting Unavail able Traboulssi, Mourhaf Admitting Unavailable Traboulssi, Mourhaf Attending Unavailable Ross, Christo E Primary Care Unavailable Ross, Christo E Primary Care Unavailable Roel Mireles Admitting Unavail able Roel Mireles Attending Unavail able Ross, Christo E Primary Care Unavailable Roel Mireles Admitting Unavail able Roel Mireles Attending Unavail able Chirsto Orellana EEfren Attending Unavailable Christo Orellana EEfren Attending Unavailable Christo Orellana E. Attending Unavailable Christo Orellana E. Attending Unavailable Reyna Christo E. Admitting Unavailable Christo Orellana E. Attending Unavailable Reyna Christo E. Admitting Unavailable Christo Orellana E. Attending Unavailable Christo Orellana E. Attending Unavailable MARICRUZ Howard Attending Unavailable Christo Orellana EEfren Attending Unavailable Christo Orellana EEfren Attending Unavailable JACKLYN KELLY Attending Unavailable Christo Orellana Attending Unavailable Christo Orellana Attending Unavailable Christo Orellana Attending Unavailable Christo Orellana Attending Unavailable Christo Orellana Attending Unavailable Christo Orellana Attending Unavailable Amy Zuñiga MD Primary Care Provider AMY ZUÑIGA Primary Care Unavailable EFREN CARBAJAL Attending Unavailable AMY ZUÑIGA Primary Care Unavailable EFREN CARBAJAL Referring Unavailable EFREN CARBAJAL Attending Unavailable Allergies Allergy Classification Reported Allergen(s) Allergy Type Date of Onset Reaction(s) Facility (9 sources) Bacitracin / Neomycin / Polymyxin B; Translations: [Neosporin OINT] Drug Allergy [facility] Work Phone: (20 sources) bacitracin / neomycin / polymyxin b; Translations: [NEOMYCIN-BACIT RACIN-POLYMYXIN ] Drug Allergy 9 Unknown (qualifier value) [facility] (12 sources) Bacitracin; Translations: [bacitracin] Drug Allergy 8 Unknown Reaction, Unknown [facility] (11 sources) Haloperidol; Translations: [haloperidol] Drug Allergy 3 Unknown Reaction, Unknown [facility] (10 sources) Neomycin; Translations: [neomycin] Drug Allergy 3 Blister [facility] (11 sources) polymyxin B; Translations: [polymyxin B] Allergy to substance 3 Blister, [facility] (3 sources) Bacitracin / Neomycin / Polymyxin B; Translations: [Neosporin] Drug Allergy 4 Unknown [facility] (1 source) Haloperidol Drug Allergy 1 [facility] (4 sources) Bacitracin / Polymyxin B; Translations: [BACITRACIN ZINC-POLYMYXIN B] Drug Allergy 3 Other, Unknown [facility] (4 sources) Colloidal oatmeal; Translations: [COLLOIDAL OATMEAL] Drug Allergy 3 Other, Unknown [facility] Work Phone: Medications Current Medications Medication Drug Class(es) Dates Sig (Normalized) Sig (Original) allopurinol 300 mg oral tablet (20 sources) Xanthine Oxidase Inhibitor Start: 02-02-2015 take [...] 5 mg by mouth t wice daily. carbidopa 25 mg / levodopa 100 mg oral tablet (20 sources) Aromatic Amino Acid Decarboxylation Inhibitor, Aromatic Amino Acid Start: 02-09-2024 End: 02-08-2025 take 2 tablets by mouth four times daily, then take 6 tablets by mouth in the morning, then take 10 tablets by mouth in the morning, then take 2 tablets by mouth in the evening, then take 6 tablets by mouth in the evening carbidopa-levodop a (SINEMET 25-100) 25-100 mg per tablet Take 2 tablets by mouth four times daily. (6 AM, 10 AM, 2 PM, and 6 PM) 720 tablet 3 02/09/2024 02/08/2025 Active Start: 08-29-2023 End: 02-06-2025 take 1 tablet by mouth three times daily, then take 2 tablets by mouth twice daily in the morning carbidopa-levodopa CR (SINEMET CR) 50-200 mg per tablet Indications: Primary parkinsonism (HCC) , Motor fluctuations related to medication use in Parkinson's disease (HCC) Take 1 tablet by mouth three times a day AND 2 tablets two times a day. [AM &Bedtime]. 630 tablet 3 02/07/2024 02/06/2025 Active Start: 02-20-2023 End: 07-28-2023 take 1 tablet by mouth four times daily in the morning, then take 2 tablets by mouth in the evening, then take 6 tablets by mouth in the evening Carbidopa-Levodopa Discontinued 1 TAB PO Four times daily July 22, 2023 1:00am July 28, 2023 2:22pm TAKE 1 TABLET AT 6 AM, 10 AM, 2 PM, AND 6 PM Start: 01-30-2023 End: 02-09-2024 carbidopa-levodopa (SINEMET 25-100) 25-100 mg per tablet Take 1.5 tablets of immediate release levodopa/carbidopa 25/100 mg at 6 AM, 10 AM, 2 PM, and 6 PM 540 tablet 3 02/07/2024 02/09/2024 Discontinued Start: 01-30-2023 End: 08-29-2023 carbidopa-levodopa CR (DORIAN ET CR) 50-200 mg per tablet Take 1 tablet of controlled release levodopa/carbidopa 50/200 mg at 6 AM, 10 AM, 2 PM, and 6 PM 540 tablet 3 01/30/2023 08/29/2023 Discontinued Start: 06-21-2022 End: 01-30-2023 take 1 tablet by mouth four times daily carbidopa-levodopa 25 mg-100 mg Tab 1 tab(s), Oral, QID, Refill(s) 0 Start Date: 02/20/23 Status: Ordered Start: 06-21-2022 End: 01-30-2023 take 1 tablet by mouth four times daily Carbidopa-Levodopa Discontinued 1 TAB PO Four times daily September 25, 2022 1:00am December 12, 2022 1:33pm Start: 12-16-2020 take 2 tablets by mo uth once daily carbidopa-levodopa (Sinemet CR) 50-200 mg ER tablet Take 2 tablets by mouth once daily. 0 12/16/2020 Active Start: 12-16-2020 carbidopa-levo dopa (Sinemet) 25-100 mg [...] and 6 PM Take 1 tablet by cullen th four times daily. Take 1 tablet of [...] and 6 PM Take 1 tablet by cullen three times a day AND 2 tablets once daily. [Bedtime]. Take 1 tablet by cullen three times a day AND 2 tablets two times a day. [AM &Bedtime]. cholecalciferol 0.025 mg oral tablet (20 sources) Vitamin D Start: 2022 take 25 ug by mouth once daily Cholecalciferol (Vitamin D3) Active 25 MCG PO Daily July 28, 2023 1:00am Start: 09-25-2022 End: 07-21-2023 take 50 ug by mouth once daily Cholecalciferol (Vitami n D3) Discontinued 50 MCG PO Daily September 25, 2022 1:00am July 21, 2023 1:13pm take 1 capsule by [facility] once daily Cholecalciferol, Vitamin D3, 25 mcg (1,000 unit) cap Indications: Postsurgical hypothyroidism , Unspecified vitamin D deficiency Take 1,000 Units by mouth once daily. 0 Active take 1 tablet by cullen once daily Vitamin D3 50 MCG (2000 UT) Oral Tablet Take 1 tablet daily Quantity: 0 Refills: 0 Ordered: 08-Oct-2021 DO Active take 1 capsule by [facility] once daily Cholecalciferol 50 MCG (2000 UT) 1 capsule Orally Once a day Active Comment on above: Take 1,000 Units by mouth once daily. clonazePAM 0.5 mg oral tablet (20 sources) Benzodiazepine Start: 05-11-20 End: 02-09-20 24 clonazePAM (KLONOPIN) 0.5 mg tablet Take by mouth. 0 05/11/2021 02/09/2024 Discontinued Comment on above: Take by mouth. donepezil hydrochloride 10 mg oral tablet (20 sources) Start: 02-21-20 23 take 1 tablet by mouth once daily, [...] daily. Take 1 tablet by mouth daily. entacapone 200 mg oral tablet (20 sources) Hwxwlvdw-F-Lghbeiuc ansferase Inhibitor Start: 07-28-2023 take 1 dose by mouth three times daily Entacapone Active 200 MG PO Three times daily July 28, 2023 1:00am administer at the same time as l-dopa/carbidopa dose Start: 09-25-2022 take 1 dose by mouth four times daily Entacapone Active 200 MG PO Four times daily September 25, 2022 12:00am administer at the same time as l-dopa/carbidopa dose Start: 06-10-2020 End: 07-21-2023 take 1 dose by mouth three times daily Entacapone Discontinued 200 MG PO Three times daily September 25, 2022 1:00am July 21, 2023 4:45pm administer at the same time as l-dopa/carbidopa dose etodolac 400 mg oral tablet (1 source) Nonsteroidal Anti-inflammatory Drug Start: 12-28-2023 take 1 tablet by mouth twice daily etodolac 400 mg Tab 400 mg = 1 tab(s), Oral, BID, Refills(s) 0 Start Date: 12/28/23 Status: Ordered flecainide acetate 50 mg oral tablet (8 sources) Antiarrhythmic Start: 07-19-2023 take 50 mg by mouth every twelve hours Flecainide Active 50 MG PO Q12H July 21, 2023 1:00am Start: 07-05-2023 End: 07-04-2024 take 1 tablet by mouth twice daily flecainide (Tambocor) 50 mg tablet Indications: Persistent atrial fibrillation (CMS/HCC) Take 1 tablet (50 mg) by mouth 2 times a day. 60 tablet 11 07/05/2023 07/04/2024 Active furosemide 40 mg oral tablet (20 sources) Loop Diuretic Start: 05-05-2023 take 1 tablet by mouth three times daily furosemide (LASIX) 40 mg tablet Take 1 tablet by mouth three times a day. 0 05/05/2023 Active Start: 12-12-2022 End: 09-11-2024 take 40 mg by mouth once daily Furosemide Active 40 MG PO Daily December 12, 2022 12:00am Comment on above: Take 1 tablet by cullen th three times a day. melatonin 10 mg oral tablet (6 sources) Start: 07-21-2023 take 15 mg by mouth at bedtime Melatonin Active 15 MG PO Bedtime July 21, 2023 1:00am Start: 02-20-2023 take 1 tablet by cullen [...] Refills(s) 0 Start Date: 02/20/23 Status: Ordered omeprazole 40 mg delayed release oral capsule (1 source) Proton Pump Inhibitor Start: 12-28-2023 take 1 capsule by mouth once daily omeprazole 40 mg Cap-DR 40 mg = 1 cap(s), Oral, Daily, # 30 cap(s), Refills(s) 0, Pharmacy: [facility]/pharmacy #[id number], 172.2, cm, 12/28/23 11:06:00 EDT, Height/Length Dosing, 66.9, kg, 12/28/23 11:06:00 EDT, Weight Dosing Start Date: 12/28/23 Status: Ordered PreserVision AREDS (1 source) Start: 08-07-2023 take 2 tablets by mouth once daily PreserVision AREDS See Instructions, Refill(s) 0, 2 tabs orally daily Start Date: 08/07/23 Status: Ordered tamsulosin hydrochloride 0.4 mg oral capsule (1 source) alpha-Adrenergic Breanna Start: 12-28-2023 take 1 capsule by mouth once daily Flomax 0.4 mg Cap 0.4 mg = 1 cap(s), Oral, Daily, # 30 cap(s), Refills(s) 0, Pharmacy: [facility]/pharmacy #[id number], 172.2, cm, 12/28/23 11:06:00 EDT, Height/Length Dosing, 66.9, kg, 12/28/23 11:06:00 EDT, Weight Dosing Start Date: 12/28/23 Status: Ordered vit C/E/Zn/coppr/lutein/ zeaxan (PRESERVISION AREDS-2 ORAL) (20 sources) vit C/E/Zn/coppr/lutein/ zeaxan (PRESERVISION AREDS-2 ORAL) Take by mouth. 0 Active Comment on above: Take by mouth. vitamin B12 (20 sources) Vitamin B12 Start: 09-25-2022 take 1000 ug by mouth once daily Cyanocobalamin (Vitamin B-12) Active 1000 MCG PO Daily September 25, 2022 1:00am Start: 09-25-2022 take 1000 ug by mout h once daily Cyanocobalamin (Vitamin B-12) Active 1000 [...] one(1) tablet daily. 0 0 11/03/2009 Active End: 11-07-2023 take 1 tablet by mouth once daily cyanocobalamin, vitamin B-12, (Vitamin B-12) 1,000 mcg tablet extended release Take 1 tablet (1,000 mcg) by mouth once daily. 0 11/07/2023 Discontinued (Therapy completed) Cyanocobalamin 3 000 MCG as directed Orally Active Comment on above: Take one(1) tablet d aily. Vitamin D3 (2 sources) Start: 01-16-2020 Vitamin D3 Ref ills(s) 0 Start Date: 01/16/20 Status: Ordered Completed/Discontinued Medications Medication Drug Class(es) Dates Sig (Normalized) Sig (Original) ascorbic acid 113 mg / beta carotene 7160 mg / cuprous oxide 0.4 mg / dl-alpha tocopheryl acetate 100 unt / zinc oxide 17.4 mg oral tablet (8 sources) Vitamin C Start: 12-12-2022 End: 07-28-2023 take 2 tablets by mouth twice daily at dinner Vitamins A,C,A-Pmjj-Ncboqr (Preservision Areds) 2,148 mcg-113 mg-45 mg-17.4mg Tablet Discontinued 2 TAB PO Twice daily December 12, 2022 12:00am July 28, 2023 2:15pm administer with AM and PM meals aspirin 81 mg oral tablet (20 sources) Platelet Aggregation Inhibitor, Nonsteroidal Anti-inflammatory Drug Start: 09-25-2022 End: 09-27-2022 take 81 mg by mouth once daily Aspirin Discontinued 81 MG PO Daily September 25, 2022 1:00am September 27, 2022 3:16pm Start: 10-08-2021 take 1 tablet by cullen two times weekly Aspirin EC 81 MG Oral Tablet Delayed Release 1 tablet twice weekly Quantity: 25 Refills: 3 Ordered: 24-Feb-2022 Edel Cesar MD Start : 08-Oct-2021 Active Start: 04-23-2009 aspirin(ECOTRI N LOW STRENGTH 81 MG TAB) Take one(1) tablet daily. 0 0 04/23/2009 Active Comment on above: Take one(1) tablet d aily. atorvastatin 20 mg oral tablet (20 sources) HMG-CoA Reductase Inhibitor Start: 01-16-20 End: 07-21-20 take 20 mg by mouth at bedtime Atorvastatin Discontinued 20 MG PO Bedtime September 25, 2022 1:00am July 21, 2023 1:13pm Comment on above: Take 20 mg by mouth once daily. clindamycin 300 mg oral capsule (9 sources) Lincosamide Antibacterial Start: 09-27-19 End: 12-14-19 take 600 mg by mouth three times daily Clindamycin Hcl Discontinued 600 MG PO Three times daily 12 2 September 27, 2022 1:00am December 13, 2022 10:23am lactulose 667 mg/ml oral solution (14 sources) Osmotic Laxative Start: 09-25-19 End: 12-13-19 take 10 g by mouth once daily Lactulose Discontinued 10 GM PO Daily September 25, 2022 1:00am December 12, 2022 1:36pm Start: 03-29-2016 lactulose (DUP HALAC, CONSTULOSE) 10 gram/15 mL solution TAKE 1 TEASPOONFUL BY MOUTH TWICE A DAY 750 mL 4 03/29/2016 Active Lactulose 10 g D aily Active Comment on above: TAKE 1 TEASPOONFUL B Y MOUTH TWICE A DAY levodopa 42 mg inhalation powder (20 sources) Aromatic Amino Acid Start: 07-28-2023 End: 11-07-2023 Levodopa (Inbrija) 42 mg capsule, w/inhalation device Discontinued 84 MG INHALATION Three times daily July 28, 2023 1:00am September 26, 2023 9:11am Start: 11-29-2022 End: 02-09-2024 take 2 capsules by mouth five times daily as needed levodopa (INBRIJA) 42 mg Indications: Motor fluctuations related to medication use in Parkinson's disease (HCC) Inhale 2 capsules by mouth as needed for medication wearing off episodes. Use no more than five times a day. 300 capsule 5 06/20/2023 02/09/2024 Discontinued Start: 06-21-2022 End: 09-19-2022 take 2 capsules by inhalation five times daily as needed levodopa (INBRIJA) 42 mg Inhale 2 capsules as instructed as needed. Maximum 5 times daily. 60 capsule 3 06/21/2022 09/19/2022 Active Comment on above: Inhale 2 capsules as instructed as needed. Maximum 5 times daily. Inhale 2 capsules as instructed five times daily. Inhale 2 capsules as instructed five times a day. Inhale 2 capsules by mouth as needed for medication wearing off episodes. Use no more than five times a day. levothyroxine sodium 0.05 mg oral tablet (20 sources) l-Thyroxine Start: 07-21-2023 End: 07-21-2023 Levothyroxine Discontinued 50 MCG PO July 21, 2023 1:00am July 21, 2023 4:49pm on mondays Start: 07-10-2023 levothyroxine 100 mcg (0.1 mg) Tab See Instructions, 1 tab(s) Oral Daily, everyday except Monday. Monday take 1/2 tablet oral., # 90 tab(s), Refills(s) 1, Pharmacy: [facility]/pharmacy #[id number], 172.2, cm, 06/21/23 14:45:00 EST, Height/Length Dosing, 64, kg, 06/21/23 14:45:00 EST, Weight Dosing Start Date: 07/10/23 Status: Ordered Start: 02-20-2023 take 1 tablet by cullen th once daily levothyroxine 100 mcg (0.1 mg) Tab 100 mcg = 1 tab(s), Oral, Daily, Refills(s) 0 Start Date: 02/20/23 Status: Ordered Start: 10-19-2020 take 100 ug by mouth once daily Levothyroxine Active 100 MCG PO Daily September 25, 2022 1:00am Start: 10-19-2020 levothyroxine (Synthroid, Levoxyl) 100 mcg tablet Take 1 tablet (100 mcg) by mouth. 6 days a week, no Mondays 0 10/19/2020 Active Start: 11-21-2016 levothyroxine (SYNTHROID) 100 mcg tablet [...] 0 Refills: 0 Ordered: 08-Oct-2021 DO Active rasagiline 1 mg oral tablet (20 sources) Monoamine Oxidase Inhibitor Start: 3 End: 4 take 1 mg by mouth once daily Rasagiline Discontinued 1 MG PO Daily July 28, 2023 1:00am September 26, 2023 9:11am Start: 01-16-2020 End: 07-21-2023 take 1 mg by mouth once daily Rasagiline Discontinued 1 MG PO Daily September 25, 2022 1:00am July 21, 2023 4:52pm spironolactone 25 mg oral tablet (14 sources) Aldosterone Antagonist Start: 12-12-2022 End: 09-26-2023 take 25 mg by mouth once daily Spironolactone Discontinued 25 MG PO Daily December 12, 2022 12:00am September 26, 2023 9:11am vit A/vit C/vit E/zinc/copper (VITAMINS A,C,D-EIKN-HLWAAY ORAL) (1 source) End: 07-05-2023 vit A/vit C/vit E/zinc/copper (VITAMINS A,C,P-OEMZ-FNALAG ORAL) Take by mouth. 0 07/05/2023 Discontinued (Therapy completed) vitamin D3-vitamin K2 1,250-200 mcg capsule (3 sources) End: 11-07-2023 take 1 tablet by mouth once daily vitamin D3-vitamin K2 1,250-200 mcg capsule Take 1 tablet by mouth once daily. 0 11/07/2023 Discontinued (Therapy completed) take 1 tablet by mouth once ray y vitamin D3-vitamin K2 1,250-200 mcg capsule Take 1 tablet by mouth once daily. 0 Active Problems Active Problems Problem Classification Problem Date Documented Date Episodic/Chronic Abdominal pain (4 sources) Unspecified abdominal pain; Translations: [UNSPECIFIED ABDOMINAL PAIN] Onset: 10-19-2022 Episodic Adjustment disorders (19 sources) Grief finding; Translations: [Adjustment disorder with depressed mood] Onset: 08-25-2022 08-25-2022 Chronic Biliary tract disease (2 sources) Cholecystitis, unspecified; Translations: [Acute cholecystitis] Onset: 09-19-2022 Episodic Calculus of urinary tract (1 source) Calculus of kidney; Translations: [CALCULUS OF KIDNEY] Onset: 09-19-2022 Episodic Cancer of colon (2 sources) History of malignant neoplasm of colon 01-16-2020 Episodic Cancer of prostate (2 sources) History of malignant neoplasm of prostate 01-16-2020 Episodic Cardiac dysrhythmias (20 sources) Paroxysmal atrial fibrillation; Translations: [Atrial fibrillation] Onset: 12-24-2021 09-25-2022 Chronic Cardiac dysrhythmias (1 source) Bradycardia, unspecified; Translations: [BRADYCARDIA UNSPECIFIED] Onset: 09-29-2022 Episodic Chronic kidney disease (1 source) Chronic kidney disease 06-05-2023 Chronic Complications of surgical procedures or medical care (20 sources) Postoperative hypothyroidism; Translations: [Postprocedural hypothyroidism] Onset: 01-14-2010 01-14-2010 Chronic Conduction disorders (20 sources) Complete atrioventricular block; Translations: [Atrioventricular block, complete] Onset: 11-28-2022 Chronic Congestive heart failure; nonhypertensive (17 sources) Congestive heart failure; Translations: [Congestive heart failure, unspecified] Onset: 11-28-2022 Resolved: 07-05-2023 Chronic Coronary atherosclerosis and other heart disease (3 sources) Atherosclerotic heart disease of [place] coronary artery without angina pectoris; Translations: [Coronary atherosclerosis] Onset: 09-07-2022 11-15-2022 Chronic Deficiency and other anemia (1 source) Anemia, unspecified; Translations: [ANEMIA UNSPECIFIED] Onset: 09-29-2022 Episodic Delirium, dementia, and amnestic and other cognitive disorders (3 sources) Cognitive disorder; 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 Disorders of lipid metabolism (20 sources) Mixed hyperlipidemia; Translations: [Mixed hyperlipidemia] Onset: 12-31-2015 12-31-2015 Chronic Gout and other crystal arthropathies (2 sources) Gout 10-11-2022 Chronic Hyperplasia of prostate (2 sources) Benign prostatic hypertrophy with outflow obstruction 01-16-2020 Chronic Menopausal disorders (1 source) Hormone replacement therapy; Translations: [HORMONE REPLACEMENT THERAPY] Onset: 09-29-2022 Episodic Miscellaneous mental health disorders (2 sources) Primary insomnia 02-20-2023 Chronic Nutritional deficiencies (20 sources) Vitamin D deficiency; Translations: [Vitamin D deficiency, unspecified] Onset: 11-07-2011 11-07-2011 Chronic Open wounds of head; neck; and trunk (1 source) Laceration without foreign body of other part of head, initial encounter; Translations: [LAC W/O FB OTH PART HEAD INIT ENC] Onset: 09-29-2022 Episodic Other aftercare (13 sources) Drug therapy finding; Translations: [Long-term (current) use of anticoagulants] Onset: 07-04-2023 07-04-2023 Episodic Other aftercare (1 source) 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; Translations: [ALF CURRENT USE OF ASPIRIN] Onset: 11-28-2022 Episodic Other aftercare (1 source) Other intermediate (current) drug therapy; Translations: [OTH RAIL CAR LOADER CURRENT DRUG THERAPY] Onset: 11-28-2022 Episodic Other circulatory disease (2 sources) Raynaud's disease 10-11-2022 Chronic Other circulatory disease (2 sources) Orthostatic hypotension 10-11-2022 Episodic Other connective tissue disease (1 source) Muscle pain; Translations: [Myalgia, unspecified site] 10-25-2023 Episodic Other connective tissue disease (1 source) Pain in left lower limb; Translations: [Pain in left leg] 10-25-2023 Episodic Other connective tissue disease (2 sources) Pain in bilateral legs; Translations: [Pain in right leg] Onset: 02-09-2024 02-09-2024 Episodic Other connective tissue disease (2 sources) Tendinitis of right knee; Translations: [Other specified enthesopathies of right lower limb, excluding foot] Onset: 02-09-2024 02-09-2024 Episodic Other connective tissue disease (1 source) Pain in right leg; Translations: [Leg pain, bilateral] Onset: 02-09-2024 Episodic Other connective tissue disease (1 source) Pain in left leg; Translations: [Leg pain, bilateral] Onset: 02-09-2024 Episodic Other connective tissue disease (1 source) Other specified enthesopathies of right lower limb, excluding foot; Translations: [Tendonitis of knee, right] Onset: 02-09-2024 Episodic Other injuries and conditions due to [...] [RIGHT TESTICULAR PAIN] Onset: 11-28-2022 Episodic Other nervous system disorders (2 sources) Abnormal gait; Translations: [Unspecified abnormalities of gait and mobility] Onset: 02-09-2024 02-09-2024 Episodic Other nervous system disorders (1 source) Unspecified abnormalities of gait and mobility; Translations: [Abnormality of gait] Onset: 02-09-2024 Episodic Other non-epithelial cancer of skin (2 sources) History of malignant neoplasm of skin 01-16-2020 Episodic Other nutritional; endocrine; and metabolic disorders (3 sources) Overweight in adulthood with body mass index of 25 or more but less than 30; Translations: [Overweight] Onset: 08-31-2023 Resolved: 11-07-2023 11-07-2023 Episodic Other nutritional; endocrine; and metabolic disorders (1 source) Abnormal weight loss; Translations: [ABNORMAL WEIGHT LOSS] Onset: 09-19-2022 Episodic Other nutritional; endocrine; and metabolic disorders (1 source) Anorexia; Translations: [ANOREXIA] Onset: 09-19-2022 Episodic Other nutritional; endocrine; and metabolic disorders (2 sources) Unintentional weight loss 10-11-2022 Episodic Other nutritional; endocrine; and metabolic disorders (2 sources) Body mass index (BMI) 26.0-26.9, adult; Translations: [Body mass index (BMI) 26.0-26.9, adult] Onset: 11-07-2023 Episodic Other screening for suspected conditions (not mental disorders or infectious disease) (18 sources) Echocardiogram abnormal; Translations: [Nonspecific (abnormal) findings [...] fluctuations] Onset: 07-21-2023 Peripheral and visceral atherosclerosis (2 sources) Abdominal aortic atherosclerosis 05-30-2023 Chronic Comment on above: added per 05/29/2023 query response. Pulmonary heart disease (9 sources) Pulmonary hypertension; Translations: [Other chronic pulmonary heart diseases] Onset: 07-04-2023 07-05-2023 Chronic Residual codes; unclassified (2 sources) Obstructive sleep apnea syndrome 10-11-2022 Chronic Residual codes; unclassified (12 sources) Body mass index 20-24 - normal; Translations: [Body Mass Index between 19-24, adult] Onset: 07-05-2023 Resolved: 08-31-2023 07-05-2023 Episodic Residual codes; unclassified (1 source) Other specified personal risk factors, not elsewhere classified Episodic Residual codes; unclassified (1 source) Did not attend; Translations: [No-show for appointment] Episodic Residual codes; unclassified (1 source) Edema, unspecified; Translations: [EDEMA UNSPECIFIED] Onset: 12-01-2022 Episodic Residual codes; unclassified (1 source) Insomnia 12-07-2023 Episodic Screening and history of mental health and substance abuse codes (13 sources) Ex-smoker; Translations: [Personal history of tobacco use] Onset: 11-07-2023 11-07-2023 Episodic Skin and subcutaneous tissue infections (1 source) Infection of skin 06-21-2023 Episodic Spondylosis; intervertebral disc disorders; other back problems (3 sources) Other intervertebral disc degeneration, lumbar region; Translations: [Spondylosis] Onset: 09-19-2022 10-11-2022 Chronic Superficial injury; contusion (1 source) Abrasion of right eyelid and periocular area, initial encounter; Translations: [ABRASION RT EYELID PERIOCULAR INIT] Onset: 09-29-2022 Episodic Syncope (15 sources) Syncope; Translations: [Syncope and collapse] Onset: 09-25-2022 09-25-2022 Episodic Thyroid disorders (20 sources) Non-toxic multinodular goiter; Translations: [Nontoxic multinodular goiter] Onset: 04-23-2009 01-14-2010 Chronic Unclassified (20 sources) Parkinson's disease; Translations: [Primary parkinsonism] Onset: 08-25-2022 05-05-2023 Chronic Unclassified (5 sources) Movement disorder; Translations: [Motor fluctuations related [...] parkinsonism; Translations: [Primary parkinsonism] Onset: 08-25-2022 Unclassified (1 source) No-show for appointment; Translations: [No-show for appointment] Onset: 11-22-2022 Unclassified (2 sources) Other persistent atrial fibrillation; Translations: [Other persistent atrial fibrillation (CMS/HCC)] Onset: 07-04-2023 Unclassified (1 source) Drug therapy finding 07-19-2023 Unclassified (1 source) Mild pulmonary hypertension 08-04-2023 Comment on above: noted in 07/05/2023 Cardiology Consult Note page 2. added per OP [facility] policy. Unclassified (1 source) Other persistent atrial fibrillation; Translations: [Other persistent atrial fibrillation] Onset: 09-26-2023 Unclassified (1 source) Encounter for checking and testing of cardiac pacemaker pulse generator [battery]; Translations: [Encounter for checking and testing of cardiac pacemaker pulse generator [battery]] Onset: 04-05-2023 Unclassified (1 source) Primary parkinsonism (HCC); Translations: [Primary parkinsonism (HCC)] Onset: 08-25-2022 Past or Other Problems Problem Classification Problem Date Documented Da te Episodic/Chronic Acute and unspecified renal failure (8 sources) Acute renal failure syndrome; Translations: [Acute kidney failure, unspecified] Onset: 07-21-2023 Episodic E Codes: Adverse effects of medical drugs (1 source) Adverse effect of antiparkinsonism drugs and other central muscle-tone depressants, initial encounter; Translations: [Levodopa-induced dyskinesia] Onset: 3 Episodic E Codes: Fall (9 sources) Fall on same level, unspecified, initial encounter; Translations: [Fall] Onset: 3 07-21-2023 Episodic Fluid and electrolyte disorders (9 sources) Dehydration; Translations: [Dehydration] Onset: 3 07-21-2023 Episodic Malaise and fatigue (20 sources) Fatigue; Translations: [Other fatigue] Onset: 9 04-23-2009 Episodic Nonspecific chest pain (4 sources) Chest pain, unspecified; Translations: [CHEST PAIN UNSPECIFIED] Onset: 2 Episodic Other aftercare (3 sources) detention (current) use of anticoagulants; Translations: [RAIL CAR LOADER CURRNT USE ANTICOAGULANTS] Onset: 3 Episodic Other gastrointestinal disorders (20 sources) Constipation; Translations: [Constipation, unspecified] Onset: 9 04-23-2009 Episodic Other hereditary and degenerative nervous system conditions (18 sources) Drug-induced dyskinesia; Translations: [Drug induced subacute dyskinesia] Onset: 3 08-25-2022 Episodic Other hereditary and degenerative nervous system conditions (1 source) Drug induced subacute dyskinesia; Translations: [Levodopa-induced dyskinesia] Onset: 3 Episodic Other lower respiratory disease (1 source) Wheezing; Translations: [WHEEZING] Onset: 2 Episodic Other upper respiratory infections (1 source) Acute pharyngitis, unspecified; Translations: [ACUTE PHARYNGITIS UNSPECIFIED] Onset: 2 Episodic Residual codes; unclassified (18 sources) Inadequate sleep hygiene; Translations: [Inadequate sleep hygiene] Onset: 3 08-25-2022 Episodic Residual codes; unclassified (18 sources) Disturbance in sleep behavior; Translations: [Sleep disorder, unspecified] Onset: 3 08-25-2022 Episodic Residual codes; unclassified (1 source) Inadequate sleep hygiene; Translations: [Inadequate sleep hygiene] Onset: 3 Episodic Residual codes; unclassified (1 source) Sleep disorder, unspecified; Translations: [Disturbance in sleep behavior] Onset: 3 Episodic Unclassified (1 source) COUGH, UNSPECIFIED; Translations: [COUGH, UNSPECIFIED] Onset: 2 Unclassified (3 sources) Onset: 3 Resolved: 4 07-05-2023 Results Test Name Value Interpretation Reference Range Facility [facility] 02-09-2024 CNOV Office Visit (NRESFV ) ----- MAGDALENO VALDERRAMA ([id number]) 1940 M Date Time Provider Department 02/09/24 8:30 AM EFREN CARBAJAL NRESFV During your visit today, we recorded the following information about you: Pulse Blood pressure Height 78/minute 134/79 1.727 m Efren Carbajal DO 02/09/2024 9:25 AM Signed [facility] - FOLLOW UP EVALUATION Efren Carbajal [address] [facility] [address] Amy Zuñiga MD [address] [facility] [address] Magdaleno Valderrama is a 83 year old right-handed male with a history of right leg pain. He is seen with a son. Interval History Since Last Visit: He reports that he is weaker with walking - no recent falls. Biggest issue is right leg pain - burning pain. Patient notes area from 2/3 down thigh to just distal the knee. The left leg has no symptoms. He reports good and bad days. The pain will lighten with the Sinemet. There is worsening zkdwpnet-po-fpit (FOG). .The patient denies any recent illness or infections. The patient denies any hospitalization since the [...] others. The patient denies any new pain. No prior use of gabapentin. There is a h/o peak-dose dyskinesias (levodopa-induced dyskinesias - LID) Parkinson's Medications Schedule: Medications 6 AM 10 AM 2 PM 6 PM 9PM Sinemet (carbidopa/levodopa) CR 50/200 1 1 1 0 2 Sinemet (carbidopa/levodopa) 25/100 1.5 1.5 1.5 1.5 0 Aricept (donepezil) 5mg x x x x 1 Miralax as needed Previous Parkinson's Medications: None Allergies: ALLERGIES Allergen Reactions Neosporin [Neomycin* Current Medications: Current Outpatient Medications Medication Sig carbidopa-levodopa (SINEMET 25-100) 25-100 mg per tablet Take 1.5 tablets of immediate release levodopa/carbidopa 25/100 mg at 6 AM, 10 AM, 2 PM, and 6 PM carbidopa-levodopa CR (SINEMET CR) 50-200 mg per tablet Take 1 tablet by mouth three times a day AND 2 tablets two times a day. [AM ANDBedtime]. donepezil (ARICEPT) 10 mg tablet Take 1 tablet by mouth once daily. Take 1 tablet by mouth daily. furosemide (LASIX) 40 mg tablet Take 1 tablet by mouth three times a day. ELIQUIS 5 mg tab(s) Take 5 mg by mouth twice daily. vit C/E/Zn/coppr/lutein/zeaxa n (PRESERVISION AREDS-2 ORAL) Take by mouth. levothyroxine (SYNTHROID) 100 mcg tablet 1.5 tab on Mondays, one other 6 days. atorvastatin 20 mg tablet Take 20 mg by mouth once daily. Cholecalciferol, Vitamin D3, 25 mcg (1,000 unit) cap Take 1,000 Units by mouth once daily. cyanocobalamin(VITAMIN B-12 500 MCG TAB) Take one(1) tablet daily. allopurinol (ZYLOPRIM) 300 mg tablet Take 1 tablet by mouth once daily. No current facility-administered medications for this visit. Objective: Vital Signs: BP 134/79 Pulse 78 Ht 172.7 cm (5' 8 ) BMI 20.98 kg/m? General Medical Examination: General Description of Patient: Well appearing, comfortable and Thin Head:normocephalic, atraumatic Neck:No bruits, full range of movement, supple Cardiac: Regular rate and rhythm, no murmur Extremities: No leg edema, pulses intact, no rash or venous stasis changes. Pain on palpation to thigh. Neurological Exam Mental Status Awake and alert. Recent and remote memory are intact. Speech is normal. Language is fluent with no aphasia. Attention and concentration are normal. Fund of knowledge is appropriate for level of education. Cranial Nerves CN II to XII reported as normal . Motor No fasciculations present. Strength is 5/5 throughout all four extremities. There is 5/5 strength in bilateral upper and lower extremities distally with 4/5 bilateral strength in the arms and legs proximally. Suspect pain mediated - No focal weakness appreciated on examination. Sensory There is no evidence for a stocking-glove gradient in bilateral extremities. Dual simultaneous stimulation is intact. Reflexes Right Left Brachioradialis 2+ 2+ Biceps 2+ 2+ Triceps 2+ 2+ Hamstring 1+ 1+ Patellar 1+ 1+ Right pathological reflexes: Kailash's absent. Left pathological reflexes: Kailash's absent. Coordination Right: Xhytqi-ey-djlx normal. Rapid alternating movement normal.Left: Rudygs-kq-oyzi normal. Rapid alternating movement normal. Gait Casual gait: Narrow stance. Reduced stride length. Freezing, hesitant and shuffling gait. Reduced right arm swing. Reduced left arm swing. The patient did require assistive devices to ambulate. Parkinson's Scales Performed: (more content not included)... Normal [facility] Plan of Care - PT/OT/Speecho n 01-19-2024 Plan of Care - PT/OT/Speech [id number]#[id number] Normal [facility] Retail - Clinical Noteon Retail - Clinical Note [id number]#1.00TIFF Normal [facility] Physician Referralon 024 Physician Referral [id number]#[id number] Normal [facility] CHEMISTRYOrdered By: SYSTEM SYSTEM on 12-29-2023 Cholesterol [Mass/Vol] 111 mg/dL Low 120 - 200 mg/dL Remisol Chem Cholesterol in HDL [Mass/Vol] 52 mg/dL Invalid Interpretation Code Remisol Chem Comment on above: Result Comment: '>= 60 LOW RISK' '<= 40 HIGH RISK' Cholesterol in LDL [Mass/Vol] 44 mg/dL Normal <=129mg/dL Remisol Chem Cholesterol in VLDL [Mass/Vol] 13 mg/dL Normal 7 - 40 mg/dL Remisol Chem Triglyceride [Mass/Vol] 67 mg/dL Normal <=149mg/dL Remisol Chem TSH Qn 2.48 m[IU]/L Normal 0.34 - 5.60 mcIU/mL Remisol Chem Lab Reportson 12-29-2023 Lab Reports [id number]#[id number] Normal [facility] Lipid Panelon 12-29-2023 Cholesterol [Mass/Vol] 111 mg/dL Low 120-200 [facility] Comment on above: Performed By: #### 2 [id number] #### [facility] [address] [place] [address] Cholesterol in HDL [Mass/Vol] 52 mg/dL Invalid Interpretation Code [facility] Comment on above: Result Comment: '>= 60 LOW RISK' '<= 40 HIGH RISK' Performed By: #### 2 [id number] #### [facility] [address] [place] [address] Cholesterol in LDL [Mass/Vol] 44 mg/dL Normal <=129 [facility] Comment on above: Performed By: #### [id number] #### [facility] [address] [place] [address] Cholesterol in VLDL [Mass/Vol] 13 mg/dL Normal 7-40 [facility] Comment on above: Performed By: #### 2 [id number] #### [facility] [address] [place] [address] Triglyceride [Mass/Vol] 67 mg/dL Normal <=149 [facility] Comment on above: Performed By: #### 2 [id number] #### [facility] [address] [place] [address] Nurse Consultation Noteon Nurse Consultation Note Reason for Visit Lab Draw Assessment/Plan 1. Hypercholesterolemia (E78.00: Pure hypercholesterolemia, unspecified) 2. Hypothyroidism (E03.9: Hypothyroidism, unspecified) Medications atorvastatin 20 mg Tab, See Instructions carbidopa-levodopa 25 mg-100 mg Tab, 1 tab(s), Oral, QID carbidopa-levodopa 50 mg-200 mg ER Tab, 1 tab(s), Oral, QID ClonazePAM 0.5 mg Tab, 0.5 mg= 1 tab(s), Oral, Once a day (at bedtime), Not taking donepezil 10 mg Tab, 10 mg= 1 tab(s), Oral, Daily Eliquis 5 mg oral tablet, 5 mg= 1 tab(s), Oral, BID etodolac 400 mg Tab, 400 mg= 1 tab(s), Oral, BID flecainide 50 mg Tab, 50 mg= 1 tab(s), Oral, q12hr Flomax 0.4 mg Cap, 0.4 mg= 1 cap(s), Oral, Daily furosemide 40 mg Tab, 40 mg= 1 tab(s), Oral, Daily levothyroxine 100 mcg (0.1 mg) Tab, See Instructions, 1 refills melatonin 10 mg oral tablet, 10 mg= 1 tab(s), Oral, Once a day (at bedtime), PRN omeprazole 40 mg Cap-DR, 40 mg= 1 cap(s), Oral, Daily PreserVision AREDS, See Instructions spironolactone 25 mg Tab, 25 mg= 1 tab(s), Oral, Daily Vitamin B12 Vitamin D3 Allergies Neosporin (Unknown) Immunizations Vaccine Date Status Comments influenza virus vaccine, inactivated 05/30/2023 Given SARS-CoV-2 (COVID-19) [id number] 07/13/2022 Recorded 2022-10-07: [id number] influenza virus vaccine, [...] 05/24/2013 Recorded influenza, whole 05/16/2009 Recorded Normal [facility] TSH With T4fr Reflexon 12-28 TSH Qn 2.48 m[IU]/L Normal 0.34-5.60 [facility] Comment on above: Performed By: #### 1 [id number] #### [facility] [address] [place] [address] Ambulatory Visit Summaryon 0 12-28-2023 Ambulatory Visit Summary MAGDALENO VALDERRAMA :1940 Visit Date:12/28/2023 Ambulatory Visit Instructions Your Diagnosis Annual visit for general adult medical examination without abnormal findings 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 Mild pulmonary hypertension Parkinson's disease Persistent atrial fibrillation Hypothyroidism Screening for ischemic heart disease Former smoker Your Care Team Attending Physician - Christo Orellana MD Primary Care Physician - Christo Orellana MD This Is Your Medications List apixaban (Eliquis 5 mg oral tablet) atorvastatin (atorvastatin 20 mg Tab) carbidopa-levodopa (carbidopa-levodopa 25 mg-100 mg Tab) carbidopa-levodopa (carbidopa-levodopa 50 mg-200 mg ER Tab) cholecalciferol (Vitamin D3) clonazepam (ClonazePAM 0.5 mg Tab) cyanocobalamin (Vitamin B12) donepezil (donepezil 10 mg Tab) etodolac (etodolac 400 mg Tab) flecainide (flecainide 50 mg Tab) furosemide (furosemide 40 mg Tab) levothyroxine (levothyroxine 100 mcg (0.1 mg) Tab) melatonin (melatonin 10 mg oral tablet) multivitamin with minerals (PreserVision AREDS) omeprazole (omeprazole 40 mg Cap-DR) spironolactone (spironolactone 25 mg Tab) tamsulosin (Flomax 0.4 mg Cap) Procedures Performed Cardiac pacemaker (Week of 09/25/2022), Cystoscopy (05/24/2013), External beam radiotherapy (03/2011), Transrectal biopsy of prostate using ultrasound (US) guidance (12/31/2010), Biopsy of skin, Esophagoduodenostomy. Discharge Vitals Heart Rate (Peripheral) 70 Respiratory Rate 16 Blood Pressure 112/70 Height 172 cm Height 68 in Weight 66.9 kg Weight 147.18 lb BMI 22.61 What to do next Scheduled Follow-Up Appointments Monday 9:20 AM EDT With: Where: [facility] Invalid Interpretation Code [address] [place] [address]- \.br \ You Need to Complete the Following\.b r\ Lipid Panel, Blood, Routine collect, 12/28/23, Order for future visit, Lab Collect, Annual visit for general adult medical examination without abnormal findings [facility] Ambulatory Visit Summary MAGDALENO VALDERRAMA :1940 Visit Date:12/28/2023 Ambulatory Visit Instructions Your Diagnosis Parkinson's disease Primary insomnia BPH with urinary obstruction BMI 22.0-22.9, adult Former smoker Other obstructive and reflux uropathy Your Care Team Attending Physician - Christo Orellana MD Primary Care Physician - Christo Orellana MD This Is Your Medications List apixaban (Eliquis 5 mg oral tablet) atorvastatin (atorvastatin 20 mg Tab) carbidopa-levodopa (carbidopa-levodopa 25 mg-100 mg Tab) carbidopa-levodopa (carbidopa-levodopa 50 mg-200 mg ER Tab) cholecalciferol (Vitamin D3) clonazepam (ClonazePAM 0.5 mg Tab) cyanocobalamin (Vitamin B12) donepezil (donepezil 10 mg Tab) etodolac (etodolac 400 mg Tab) flecainide (flecainide 50 mg Tab) furosemide (furosemide 40 mg Tab) levothyroxine (levothyroxine 100 mcg (0.1 mg) Tab) melatonin (melatonin 10 mg oral tablet) multivitamin with minerals (PreserVision AREDS) spironolactone (spironolactone 25 mg Tab) Procedures Performed Cardiac pacemaker (Week of 09/25/2022), Cystoscopy (05/24/2013), External beam radiotherapy (03/2011), Transrectal biopsy of prostate using ultrasound (US) guidance (12/31/2010), Biopsy of skin, Esophagoduodenostomy. Discharge Vitals Temperature (Oral) 36.3 ?C Heart Rate (Peripheral) 70 Respiratory Rate 16 Blood Pressure 112/70 Height 172.2 cm Height 68 in Weight 66.9 kg Weight 147.18 lb BMI 22.56 What to do next Scheduled Follow-Up Appointments 2023 11:00 AM EDT With: Where: [facility] Invalid Interpretation Code [address] [place] [address]- \.br \ 2023 2:45 PM EDT \.br\ With: Christo Orellana MD\.br\ Where: [facility] Medicine Office/Clini c Noteon 12-28-2023 Family Medicine Office/Clinic Note Chief Complaint Medicare Wellness Visit History of Present Illness Covid-19, MERS, Ebola Screen *Contact With Person With Highly Contagious Disease Like Ebola/MERS/COVID-19 AND Have One or More of the Symptoms Below : No *Travel to a Country With Wide-Spread Ebola/MERS/COVID-19 in the Past 21 Days AND Have One or More of the Symptoms Below : No Patient Reported Covid-19 Testing : No *Verify Droplet, Contact Precautions for Ebola (Reference for CDC) : N/A *Verify Airborne, Droplet Precautions for MERS/COVID-19 : N/A Ramila Manrique LPN - 12/28/2023 11:17 EDT Medicare/Medicaid Summary Height/Length Measured : 172 cm(Converted to: 5 ft 8 in, 67.72 in) Weight Measured : 66.9 kg(Converted to: 147 lb 8 Ounces, 147.489 lb) Body Mass Index Measured : 22.61 kg/m2 Height in Inches : 68 in Weight in Pounds : 147.18 lb Systolic Blood Pressure : 112 mmHg Diastolic Blood Pressure : 70 mmHg Peripheral Pulse Rate : 70 bpm Respiratory Rate : 16 br/min SpO2 : 99 % Numeric Rating Pain Score : 7 Ramila Manrique LPN - 12/28/2023 11:52 EDT Chief Complaint : Medicare Wellness Visit Patient Counseled : Nutrition, Physical activity, Elevated BMI Blood Pressure Location : Right arm Blood Pressure Position : Sitting O2 Sat Resting/Exertion Alpha : Resting Pain Present : No actual or suspected pain Ramila Manrique LPN - 12/28/2023 11:17 EDT Hearing and Vision Screening FT FT Whisper Test Comments : No Deficits noted. Vision Screen Comments : Wears corrective lenses, sees [facility] for eye exams. Ramila Manrique LPN - 12/28/2023 11:52 EDT Advance Directive FT Patient Wishes to Receive Further Information on Advance Directives : Yes Organ Donation Consent : Unable to determine Ramila Manrique LPN - 12/28/2023 11:52 EDT Advance Directive : No Ramila Manrique LPN - 12/28/2023 11:17 EDT Procedures / Surgeries FT - Procedure History (As Of: 12/28/2023 12:29:48 EDT) Anesthesia Minutes: 0 ; Procedure Name: Esophagoduodenostomy ; Procedure Minutes: 0 ; Last Reviewed Dt/Tm: 12/28/2023 12:21:31 EDT Procedure Dt/Tm: 12/31/2010 ; Provider: Clifton Ayers Jr., MD; Anesthesia Minutes: 0 ; Procedure Name: TRUS/ Bx ; Procedure Minutes: 0 ; Last Reviewed Dt/Tm: 12/28/2023 12:21:31 EDT Procedure Dt/Tm: 03/2011 ; Provider: Lety Armenta MD; Anesthesia Minutes: 0 ; Procedure Name: External beam radiotherapy- prostate ; Procedure Minutes: 0 ; Last Reviewed Dt/Tm: 12/28/2023 12:21:31 EDT Procedure Dt/Tm: 05/24/2013 ; Provider: Clifton Ayers Jr., MD; Anesthesia Minutes: 0 ; Procedure Name: Cystoscopy ; Procedure Minutes: 0 ; Last Reviewed Dt/Tm: 12/28/2023 12:21:31 EDT Anesthesia Minutes: 0 ; Procedure Name: Biopsy of skin ; Procedure Minutes: 0 ; Last Reviewed Dt/Tm: 12/28/2023 12:21:31 EDT Procedure Dt/Tm: 09/25/2022 ; Anesthesia Minutes: 0 ; Procedure Name: Cardiac pacemaker ; Procedure Minutes: 0 ; Comments: 10/11/2022 14:12 EDT - Nasima Amin LPN 09/26/22 ; Last Reviewed Dt/Tm: 12/28/2023 12:21:31 EDT Family History Family History (As Of: 12/28/2023 12:29:48 EDT) Father: Relation: Father ; Gender: Male ; Nomenclature: Primary malignant neoplasm of prostate ; Value: Positive Mother: Relation: Mother ; Gender: Female ; Nomenclature: Primary malignant neoplasm of skin ; Value: Positive Nomenclature: Diabetes mellitus type 2 ; Value: Positive Medicare/Medicaid Social History FT Social History (As Of: 12/28/2023 12:29:48 EDT) Alcohol: Denies Alcohol Use (Last Updated: 12/28/2023 12:21:41 EDT by Ramila Manrique LPN ) Tobacco: No Risk Former smoker, quit more than 30 days ago Tobacco Use:. Cigarettes, 1 per day. 11 year(s). Total pack years: 11. Started age 18.0 Years. Stopped age 27 Years. Household tobacco concerns: No. (Last Updated: 12/28/2023 12:29:25 EDT by Ramila Manrique LPN) Substance Abuse: Low Risk Current, Marijuana, Daily Comments: 12/28/2023 12:28 - Ramila Manrique LPN: Patient states he takes 1/2 Marijuana gummy at bedtime. (Last Updated: 12/28/2023 12:28:45 EDT by Ramila Manrique LPN) Health Risk Assessment FT Primary Pain Location : Leg Numeric Rating Pain Scale : 7 Numeric Rating Pain Score : 7 Overall mood for past four weeks : Pretty well General health rating : Very Good Someone avail. to help if needed? : Yes, as much as I wanted Phys. & emotional health limit social act? : Slightly Ramila Manrique LPN - 12/28/2023 11:52 EDT Misc Health Risks Grid Sexual problems : Never Trouble eating well : Never Teeth or denture problems : Never Problems using the telephone : Sometimes Ramila Manrique LPN - 12/28/2023 11:52 EDT Confident you control health problems : Not very confident Difficulties driving your car? : Not applicable, I do not use a car Seatbelts : I always fasten my seat belt HRA little interest or pleasure? : Yes Burton DUCKWORTH Ramila L - 12/28/2023 11:52 EDT HRA down, depressed, or hopeless? : No (more content not included)... [facility] Comment on above: Result Comment: Elec tronically Signed By: Reyna MEJIA, Christo Alas\.br\Date and Time Signed: 12/28/23 13:43 EDT\.br\Electronically Co-Signed By: Ramila Manrique LPN\.br\Date and Time Co-Signed: 12/28/23 13:14 EDT Family Medicine Office/Clinic Note HPI Staff Magdaleno is an 83 year old male presenting for sleep issues It's not as bad as when he made the appt. He's having to get up to use the bathroom at night and that's interrupting his sleep questions/concerns: needs cleared to return to his Parkinson's rehab. Has called twice in last month and no one has done anything from our office Apparently we used wrong fax # correct number is [phone] Been more short of breath, labored breathing per son ALso Magdaleno states he had a recurrent issue of getting alot phlegm stuck down and has to go cough it up and had a procedure done for this in the past. History of Present Illness - Here for follow up. - Pt wanted to discuss sleep - He was doing well except for when he was drinking sweet tea. - Otherwise, only issue is with urination at night. - Pt does get phlegm after eating out. It comes with an upset stomach. Review of Systems PHQ Score Initial Depression Screen Score: 1 SCORE Physical Exam Vitals & Measurements T: 36.3 ?C(Oral) HR: 70(Peripheral) RR: 16 BP: 112/70 SpO2: 99% HT: 68 in HT: 172.2 cm WT: 66.9 kg WT: 147.18 lb BMI: 22.56 General: alert, no acute distress ENMT: oral mucosa moist, Cardiovascular: regular rate and rhythm, normal peripheral perfusion Respiratory: Lungs CTA, respirations non labored Extremities: no deformity, no trauma Neurological: oriented x 4, LOC appropriate for age, CN II-XII intact, motor strength equal & normal bilaterally, speech normal Abdomen: Soft, Nontender, Non-distended, + BS Assessment/Plan 1. Parkinson's disease (G20: Parkinson's disease) - Well controlled and stable - Will resend to Rehab to help - Pt is still able to do all ADLs but is starting to need assistance. Ordered: omeprazole, 40 mg = 1 cap(s), Oral, Daily, # 30 cap(s), Refills(s) 0, Pharmacy: [id number], 172.2, cm, 12/28/23 11:06:00 EDT, Height/Length Dosing, 66.9, kg, 12/28/23 11:06:00 EDT, Weight Dosing Body Mass Index (BMI) documented 3008F Current tobacco non-user 1036F Depression Screening Negative 3352F Influenza immunization administered or previously received 4274F Most recent diastolic blood pressure <80 mm Hg 3078F Patient screen for fall risk: no falls in last year or 1 fall with no injury in last year 1101F Systolic BP <130 mm Hg (Most Recent) 3074F 2. Primary insomnia (F51.01: Primary insomnia) - Doing well off of Benzos. - Pt is drinking caffeine before bed - Discussed in detail. Ordered: omeprazole, 40 mg = 1 cap(s), Oral, Daily, # 30 cap(s), Refills(s) 0, Pharmacy: [id number], 172.2, cm, 12/28/23 11:06:00 EDT, Height/Length Dosing, 66.9, kg, 12/28/23 11:06:00 EDT, Weight Dosing Body Mass Index (BMI) documented 3008F Current tobacco non-user 1036F Depression Screening Negative 3352F Influenza immunization administered or previously received 4274F Most recent diastolic blood pressure <80 mm Hg 3078F Patient screen for fall risk: no falls in last year or 1 fall with no injury in last year 1101F Systolic BP <130 mm Hg (Most Recent) 3074F 3. BPH with urinary obstruction (N40.1: Benign prostatic hyperplasia with lower urinary tract symptoms) - Will try flomax. - Discussed the pros and cons - Discussed fall risk - Will see the patient back in 1 month - Pt has a life alert and sons check on him daily. Ordered: omeprazole, 40 mg = 1 cap(s), Oral, Daily, # 30 cap(s), Refills(s) 0, Pharmacy: [id number], 172.2, cm, 12/28/23 11:06:00 EDT, Height/Length Dosing, 66.9, kg, 12/28/23 11:06:00 EDT, Weight Dosing Body Mass Index (BMI) documented 3008F Current tobacco non-user 1036F Depression Screening Negative 3352F Influenza immunization administered or previously received 4274F Most recent diastolic blood pressure <80 mm Hg 3078F Patient screen for fall risk: no falls in last year or 1 fall with no injury in last year 1101F Systolic BP <130 mm Hg (Most Recent) 3074F 4. BMI 22.0-22.9, adult (Z68.22: Body mass index [BMI] 22.0-22.9, adult) - BMI education given - Diet and exercise advised Ordered: omeprazole, 40 mg = 1 cap(s), Oral, Daily, # 30 cap(s), Refills(s) 0, Pharmacy: [id number], 172.2, cm, 12/28/23 11:06:00 EDT, Height/Length Dosing, 66.9, kg, 12/28/23 11:06:00 EDT, Weight Dosing Body Mass Index (BMI) documented 3008F Current tobacco non-user 1036F Depression Screening Negative 3352F Influenza immunization administered or previously received 4274F Most recent diastolic blood pressure <80 mm Hg 3078F Patient screen for fall risk: no falls in last year or 1 fall with no injury in last year 1101F Systolic BP <130 mm Hg (Most Recent) 3074F 5. Former smoker (Z87.891: Personal history of nicotine dependence) - Please continue to not smoke Ordered: omeprazole, 40 mg = 1 cap(s), Oral, Daily, # 30 cap(s), Refills(s) 0, Pharmacy: [id number], 172.2, cm, 12/28/23 11:06:00 EDT, Height/Length Dosing, 66.9, kg, 12/28/23 11:06:00 EDT, Weight Dosing Shemar (more content not included)... [facility] Comment on above: Result Comment: Elec tronically Signed By: Reyna MEJIA, Christo Macario.samy\Date and Time Signed: 12/28/23 11:40 EDT Lab Reportson 12-28-2023 Lab Reports [id number] [facility] Patient Educationon 12-28-19 Patient Education Caregiving Advance Directive Advance directives are legal documents that allow you to make decisions about your health care and medical treatment in case you become unable to communicate for yourself. Advance directives let your wishes be known to family, friends, and health care providers. Discussing and writing advance directives should happen over time rather than all at once. Advance directives can be changed and updated at any time. There are different types of advance directives, such as: ? Medical power of compliance attorney. ? Living will. ? Do not resuscitate (DNR) order or do not attempt resuscitation (DNAR) order. Health care proxy and medical power of compliance attorney A health care proxy is also called a health care agent. This person is appointed to make medical decisions for you when you are unable to make decisions for yourself. Generally, people ask a trusted friend or family member to act as their proxy and represent their preferences. Make sure you have an agreement with your trusted person to act as your proxy. A proxy may have to make a medical decision on your behalf if your wishes are not known. A medical power of compliance attorney, also called a durable power of compliance attorney for health care, is a legal document that names your health care proxy. Depending on the laws in your state, the document may need to be: ? Signed. ? Notarized. ? Dated. ? Copied. ? Witnessed. ? Incorporated into your medical record. You may also want to appoint a trusted person to manage your money in the event you are unable to do so. This is called a durable power of compliance attorney for finances. It is a separate legal document from the durable power of compliance attorney for health care. You may choose your health care proxy or someone different to act as your agent in money matters. If you do not appoint a proxy, or there is a concern that the proxy is not acting in your best interest, a court may appoint a guardian to act on your behalf. Living will A living will is a set of instructions that state your wishes about medical care when you cannot express them yourself. Health care providers should keep a copy of your living will in your medical record. You may want to give a copy to family members or friends. To alert caregivers in case of an emergency, you can place a card in your wallet to let them know that you have a living will and where they can find it. A living will is used if you become: ? Terminally ill. ? Disabled. ? Unable to communicate or make decisions. The following decisions should be included in your living will: ? To use or not to use life support equipment, such as dialysis machines and breathing machines (ventilators). ? Whether you want a DNR or DNAR order. This tells health care providers not to use cardiopulmonary resuscitation (CPR) if breathing or heartbeat stops. ? To use or not to use tube feeding. ? To be given or not to be given food and fluids. ? Whether you want comfort (palliative) care when the goal becomes comfort rather than a cure. ? Whether you want to donate your organs and tissues. A living will does not give instructions for distributing your money and property if you should pass away. DNR or DNAR A DNR or DNAR order is a request not to have CPR in the event that your heart stops beating or you stop breathing. If a DNR or DNAR order has not been made and shared, a health care provider will try to help any patient whose heart has stopped or who has stopped breathing. If you plan to have surgery, talk with your health care provider about how your DNR or DNAR order will be followed if problems occur. What if I do not have an advance directive? Some states assign family decision makers to act on your behalf if you do not have an advance directive. Each state has its own laws about advance directives. You may want to check with your health care provider, compliance attorney, or state account retention representative about the laws in your state. Summary ? Advance directives are legal documents that allow you to make decisions about your health care and medical treatment in case you become unable to communicate for yourself. ? The process of discussing and writing advance directives should happen over time. You can change and update advance directives at any time. ? Advance directives may include a medical power of compliance attorney, a living will, and a DNR or DNAR order. This information is not intended to replace advice given to you by your health care provider. Make sure you discuss any questions you have with your health care provider. Document Revised: 04/20/2021 Document Reviewed: 04/20/2021 ElseFreakOut Patient Education ? 2022 [employer]. Nutrition DASH Eating Plan DASH stands for Dietary Approaches to Stop Hypertension. The DASH eating plan is a healthy eating plan that has been shown to: ? Reduce high blood pressure (hypertension). ? Reduce your risk for type 2 diabetes, heart disease, and stroke. ? Help with weight loss. (more content not included)... [facility] Screenson 12-28-2023 Screens [id number] [facility] Physician Referralon 024 Physician Referral [id number] [facility] Ambulatory Visit Summaryon 0 12-07-2023 Ambulatory Visit Summary MAGDALENO VALDERRAMA :1940 Visit Date:12/07/2023 Ambulatory Visit Instructions Your Diagnosis Dementia associated with Parkinson's disease Insomnia Hypothyroidism Hyponatremia BMI 22.0-22.9, adult Former smoker Your Care Team Attending Physician - Christo Orellana MD Primary Care Physician - Christo Orellana MD This Is Your Medications List clonazepam [...] oral tablet) multivitamin with minerals (PreserVision AREDS) spironolactone (spironolactone 25 mg Tab) Procedures Performed Cardiac pacemaker (Week of 09/25/2022), Cystoscopy (05/24/2013), External beam radiotherapy (03/2011), Transrectal biopsy of prostate using ultrasound (US) guidance (12/31/2010), Biopsy of skin, Esophagoduodenostomy. Discharge Vitals Temperature (Oral) 36.6 ?C Heart Rate (Peripheral) 74 Respiratory Rate 16 Blood Pressure 122/78 Height 172.2 cm Height 68 in Weight 66.9 kg Weight 147.18 lb BMI 22.56 What to do next Scheduled Follow-Up Appointments 2023 2:45 PM EDT With: Reyna MEJIA, Christo Alas Where: [facility] Medicine [place] [facility] Medicine Office/Clini c Noteon 12-07-2023 Family Medicine Office/Clinic Note HPI Staff Magdaleno is an 83 year old male presenting for sleep issues He was taken off clonazepam due to weakness, [facility] and [facility] pharmacist there took him off it. His son put him back on it 5 days ago and he's sleeping so much better phq: 3 phq9: 13 questions/concerns: wants to get a release to do Parkinson's therapy in [place]. It really helps him History of Present Illness Son here with patient. - This is the best he has ever been. - Walking more. - Having issues with sleep. - Wants to go to his Parkinson's rehab. - Needs refills. Review of Systems PHQ Score Initial Depression Screen Score: 3 SCORE Detailed Depression Screen Score: 10 Total Depression Screen Score: 13 Physical Exam Vitals & Measurements T: 36.6 ?C(Oral) HR: 74(Peripheral) RR: 16 BP: 122/78 SpO2: 100% HT: 68 in HT: 172.2 cm WT: 66.9 kg WT: 147.18 lb BMI: 22.56 General: alert, no acute distress ENMT: oral mucosa moist, Cardiovascular: regular rate and rhythm, normal peripheral perfusion Respiratory: Lungs CTA, respirations non labored Extremities: no deformity, no trauma Neurological: oriented x 4, LOC appropriate for age, CN II-XII intact, motor strength equal & normal bilaterally, speech normal Abdomen: Soft, Nontender, Non-distended, + BS Assessment/Plan 1. Dementia associated with Parkinson's disease (G20.A1: Parkinson's disease without dyskinesia, without mention of fluctuations) - Will resend to [facility]ons Rehab. - Improving Ordered: Physical Therapy Evaluation - External Facility 2. Insomnia (G47.00: Insomnia, unspecified) - Clonazapam reordered. - Will monitor. - Follow up in 3 months. Ordered: Physical Therapy Evaluation - External Facility 3. Hypothyroidism (E03.9: Hypothyroidism, unspecified) - Will recheck labs. - Order today. Ordered: Physical Therapy Evaluation - External Facility 4. Hyponatremia (E87.1: Hypo-osmolality and hyponatremia) - Recheck labs. Ordered: Physical Therapy Evaluation - External Facility 5. BMI 22.0-22.9, adult (Z68.22: Body mass index [BMI] 22.0-22.9, adult) - BMI education given Ordered: Body Mass Index (BMI) documented 3008F Current tobacco non-user 1036F Depression Screening Positive 3354F Fall Risk Screen 2 or more w/injury 1100F Influenza immunization administered or previously received 4274F Most recent diastolic blood pressure <80 mm Hg 3078F Physical Therapy Evaluation - External Facility Systolic BP <130 mm Hg (Most Recent) 3074F 6. Former smoker (Z87.891: Personal history of nicotine dependence) - Please continue to not smoke Ordered: Body Mass Index (BMI) documented 3008F Current tobacco non-user 1036F Depression Screening Positive 3354F Fall Risk Screen 2 or more w/injury 1100F Influenza immunization administered or previously received 4274F Most recent diastolic blood pressure <80 mm Hg 3078F Systolic BP <130 mm Hg (Most Recent) 3074F Orders: clonazepam, 0.5 mg = 1 tab(s), Oral, Once a day (at bedtime), # 90 tab(s), Refills(s) 0, Pharmacy: 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 Atrial premature beats BPH with urinary obstruction CKD (chronic kidney disease) Cognitive dysfunction Constipation in male Dementia associated with Parkinson's disease Gout History of colon cancer History of prostate cancer History of skin cancer Hypercholesterolemia Hyponatremia Hypothyroidism Insomnia Mild pulmonary hypertension On anticoagulant therapy Orthostatic hypotension BINA (obstructive sleep apnea) Parkinson's disease Persistent atrial fibrillation Primary insomnia Raynaud's disease Skin infection Spondylosis Vitamin D deficiency Weight loss, unintentional Historical Elevated PSA Procedure/Surgical History Cardiac pacemaker (Week of 09/25/2022), Cystoscopy (05/24/2013), External beam radiotherapy (03/2011), Transrectal biopsy of prostate using ultrasound (US) guidance (12/31/2010), Biopsy of skin, Esophagoduodenostomy. Medications atorvastatin 20 mg Tab, See Instructions carbidopa-levodopa 25 mg-100 mg Tab, 1 tab(s), Oral, QID carbidopa-levodopa 50 mg-200 mg ER Tab, 1 tab(s), Oral, QID ClonazePAM 0.5 mg Tab, 0.5 mg= 1 tab(s), Oral, Once a day (at bedtime) donepezil 10 mg Tab, 10 mg= 1 tab(s), Oral, Daily Eliquis 5 mg oral tablet, 5 mg= 1 tab(s), Oral, BID flecainide 50 mg Tab, 50 mg= 1 tab(s), Oral, q12hr furosemide 40 mg Tab, 40 mg= 1 tab(s), Oral, Daily levothyroxine 100 mcg (0.1 mg) Tab, See Instructions, 1 refills melatonin 10 mg oral tablet, 10 mg= 1 tab(s), Oral, Once a day (at bedtime), PRN Melatonin 5 mg oral tablet, 5 (more content not included)... [facility] Comment on above: Result Comment: Elec tronically Signed By: Reyna MEJIA, Christo Alas\.br\Date and Time Signed: 12/07/23 13:58 EDT Patient Educationon 12-07-19 Patient Education Nutrition BMI for Adults What [...] numbers. This can be done either in [place] or metric measurements. Note that charts and online BMI calculators are available to help you find your BMI quickly and easily without having to do these calculations yourself. To calculate your BMI in [place] ([place] measurements: 1. Measure your weight in [...] for Disease Control and Prevention: www.cdc.gov ? [place] Heart Association: www.heart.org ? National Heart, Lung, and Blood [place]: www.nhlbi.nih.gov Summary ? Body mass index (BMI) is a number that is calculated from a person's weight and height. ? BMI may help estimate how much of a person's weight is composed of fat. BMI can help identify those who may be at higher risk for certain medical problems. ? BMI can be measured using Pakistani measurements or metric measurements. ? BMI charts are used to identify whether you are underweight, normal weight, overweight, or obese. This information is not intended to replace advice given to you by your health care provider. Make sure you discuss any questions you have with your health care provider. Document Revised: 04/08/2020 Document Reviewed: 02/14/2020 ElseFreakOut Patient Education ? 2022 [employer]. [facility] ECG 12 Leadon 11-07-2023 AV sequential paced rhythm with ectopic beat [facility] Work Phone: Echocardiographyon Echocardiography [id number] [facility] Outside Hospital Correspo ndenceon 11-03-2023 Outside Hospital Correspondence [id number]#[id number] [facility] Outside Hospital Correspo ndenceon 10-31-2023 Outside Hospital Correspondence [id number] [facility] ECG 12-Leadon 10-30-2023 ECG 12-Lead [id number] [facility] ED Note-Physicianon 10-30-19 ED Note-Physician [id number] [facility] RAD - MISCon 10-30-2023 RAD - MISC [id number]#1.00TIFF [facility] Plan of Care - PT/OT/Speecho n 10-05-2023 Plan of Care - PT/OT/Speech [id number] [facility] ECG 12 lead ECGon 09-26-2023 ECG 12 [place] [address] Electrocardiograph Report Signed Patient: Magdaleno Valderrama MR#: [id number] : 1940 Acct:[id number] Age/Sex: 83 / M ADM Date: 09/26/23 Loc: Room: Type: [facility] Attending Dr: Edel Cesar MD Ordering Provider: [...] No significant change was found Confirmed by COURTNEY FLEMING MD, FACC ([id number]) on 09/26/2023 3:36:06 PM Referred By: Edel Cesar Electronically Signed By:COURTNEY FLEMING MD [facility] Transcribed By: AIMEE Signed By Courtney Fleming MD, FACC 09/26/23 1536 Normal [facility] ECG post procedureon 024 ECG post procedure [facility] [place] [address] [place] [address] Electrocardiograph Report Signed Patient: Magdaleno Valderrama MR#: [id number] : 1940 Acct:[id number] Age/Sex: 83 / M ADM Date: 09/26/23 Loc: Room: Type: [facility] Attending Dr: Edel Cesar MD Ordering Provider: [...] No significant change was found Confirmed by COURTNEY FLEMING MD, FACC ([id number]) on 09/26/2023 3:37:04 PM Referred By: Edel Cesar Electronically Signed By:COURTNEY FLEMING MD [facility] Transcribed By: AIMEE Signed By Courtney Fleming MD, FACC 09/26/23 1537 Normal [facility] Electrolyteson 09-26-2023 Anion gap [Moles/Vol] 12.5 mmol/L Normal 6.0-15.0 [facility] Comment on above: Result Comment: PERF ORMED BY: [place] [address] PATHOLOGIST [employer]IL[employer]SERVATION OFFICER ANGELIC RANDOLPH M.D. Performed By: #### L YTES #### [address] Chloride [Moles/Vol] 103 mmol/L Normal 98-107 [facility] Comment on above: Performed By: #### L YTES #### [address] CO2 [Moles/Vol] 26.6 mmol/L Normal 21.0-31.0 [facility] Comment on above: Performed By: #### L YTES #### [address] Potassium [Moles/Vol] 4.1 mmol/L Normal 3.5-5.1 [facility] Comment on above: Performed By: #### L YTES #### [address] Sodium [Moles/Vol] 138 mmol/L Normal 136-145 [facility] Comment on above: Performed By: #### L YTES #### [address] Patient Letter FTon 2023 Patient Letter [facility] (Inserted Image. Anna ble to display) September 18, 2023 MAGDALENO VALDERRAMA [address] [place] [id number] : 1940 To Whom It May Concern: Patient Magdaleno is currently under my care and I feel patient is physically able to return to Parkinson's fitness class. If you have any questions, please don't hesitate to call the office. Christo [place] [address] [facility] Formson 09-11-2023 Forms [id number] [facility] CNPNon 09-08-2023 [facility] Telephone (NREUS2) ----- VALDERRAMAMAGDALENO YOU ([id number]) 1940 M Date Time Provider Department 09/08/23 EFREN CARBAJAL NREUS2 During your visit today, we recorded the following information about you: Elma Turpin 09/08/2023 11:41 AM Signed Fax request to clarify C/L CR can be found in scanned docs. Maurice Canela, NELA 09/08/2023 3:25 PM Signed Form was printed with clarification completed per Dr. Carbajal, for Sinemet CR 50-200 mg and faxed back to [facility]. Allergies As of Date: 09/08/2023 Noted Allergy Reaction NEOSPORIN ([id number]-GI*0 04/23/2009 Date Reviewed: 10/20/2022 Reviewed by: Ulysses Richard [...] mg by mouth twice daily. - vit C/E/Zn/coppr/lutein/zeaxa n (PRESERVISION AREDS-2 ORAL) Take by mouth. - [...] Status:Closed by MAURICE CANELA on 09/08/23 Normal [facility] Consultation Noteon 09-06-19 Consultation Note [id number] Normal [facility] Basic Metabolic Panelon GFR/1.73 sq M.predicted MDRD (S/P/Bld) [Vol rate/Area] 56.430 mL/min/{1.73_m2} Normal [facility] Comment on above: Performed By: #### T SH3, BMP #### [address] Calcium [Mass/volume] in Ser um or PlasmaOrdered By: Edel Cesar on 08-31-2023 Calcium [Mass/Vol] 9.3 mg/dL Normal 8.6-10.3 [facility] Comment on above: Performed By: #### T SH3, BMP #### [facility] [address] [place] [address] [place] Carbon dioxide, total [Moles /volume] in Serum or PlasmaOrdered By: Edel Cesar on 08-31-2023 CO2 [Moles/Vol] 31.2 mmol/L High 21.0-31.0 [facility] Comment on above: Performed By: #### T SH3, BMP #### [facility] [address] [place] [address] [place] Chloride [Moles/volume] in S siddharth or PlasmaOrdered By: Edel Cesar on 08-31-2023 Chloride [Moles/Vol] 104 mmol/L Normal 98-107 [facility] Comment on above: Performed By: #### T SH3, BMP #### [facility] [address] [place] [address] [place] Creatinine [Mass/volume] in Serum or PlasmaOrdered By: Edel Cesar on 08-31-2023 Creatinine [Mass/Vol] 1.25 mg/dL Normal 0.70-1.30 [facility] Comment on above: Performed By: #### T SH3, BMP #### [facility] [address] [place] [address] [place] Glucose [Mass/volume] in Ser um or PlasmaOrdered By: Edel Cesar on 08-31-2023 Glucose [Mass/Vol] 86 mg/dL Normal 70-100 [facility] Comment on above: ADA recommended refe rence rangeRandom Glucose Reference Range is dependent on time and content of last meal. Glucose of more than 200 mg/dL in a nonstressed, ambulatory subject supports the diagnosis of Diabetes Mellitus. Result Comment: [place] om Glucose Reference Range is dependent on time and content of last meal. Glucose of more than 200 mg/dL in a nonstressed, ambulatory subject supports the diagnosis of Diabetes Mellitus. ADA recommended reference range Performed By: #### T SH3, BMP #### [facility] [address] No Panel InformationOrdered By: Edel Cesar on 08-31-2023 Estimated GFR (CKD-EPI) 56.430 mL/Min [facility] Creatinine Clearance (Chem N/A [facility] Plan of Care - PT/OT/Speecho n 08-31-2023 Plan of Care - PT/OT/Speech [id number] Normal [facility] Plan of Care - PT/OT/Speech [id number]#[id number] Normal [facility] Potassium [Moles/volume] in Serum or PlasmaOrdered By: Edel Cesar on 08-31-2023 Potassium [Moles/Vol] 4.7 mmol/L Normal 3.5-5.1 [facility] Comment on above: Performed By: #### T SH3, BMP #### [facility] [address] [place] [address] Serum or plasma anion gap de terminationOrdered By: Edel Cesar on 08-31-2023 Anion gap [Moles/Vol] 8.5 mmol/L Normal 6.0-15.0 [facility] Comment on above: Performed By: #### T SH3, BMP #### [address] Sodium [Moles/volume] in Ser um or PlasmaOrdered By: Edel Cesar on 08-31-2023 Sodium [Moles/Vol] 139 mmol/L Normal 136-145 [facility] Comment on above: Performed By: #### T SH3, BMP #### [address] Thyrotropin [Units/volume] i n Serum or PlasmaOrdered By: Edel Cesar on 08-31-2023 TSH Qn 3.87 m[IU]/L Normal 0.45-5.33 [facility] Comment on above: Result Comment: PERF ORMED BY: [place] [address] PATHOLOGIST [employer]SERVATION OFFICER ANGELIC RANDOLPH M.D. Performed By: #### T SH3, BMP #### [facility] [address] [place] [address] Urea nitrogen [Mass/volume] in Serum or PlasmaOrdered By: Edel Cesar on 08-31-2023 Urea nitrogen [Mass/Vol] 35 mg/dL High 7-25 [facility] Comment on above: Performed By: #### T SH3, BMP #### [address] Ambulatory Visit Summaryon 0 08-23-2023 Ambulatory Visit Summary VALDERRAMAMAGDALENO YOU Yusuf :1940 Visit Date:08/23/2023 Ambulatory Visit Instructions Your Diagnosis Fall Parkinson's disease BMI 22.0-22.9, adult Your Care Team Attending Physician - JACKLYN KELLY CNP Primary Care Physician - Christo Orellana MD This Is Your Medications List apixaban [...] EDT With: Reyna MEJIA, Christo Alas Where: [facility] Medicine [place] Normal [facility] Medicine Office/Clini c Noteon 08-23-2023 Family Medicine Office/Clinic Note Chief Complaint follow up fall 08/23/23 HPI Staff Patient of Dr. Orellana presents for an acute visit. Son is [...] Illness 83 [address] old patient of Dr. Orellana presents today with his son for evaluation [...] quantified; pain pre (more content not included)... [facility] Comment on above: Result Comment: Elec tronically Signed By: JACKLYN KELLY CNP\.br\Date and Time Signed: 08/23/23 11:18 EST Physician Orderon 08-08-2023 Physician Order [id number]#1.00TIFF can this order be re-faxed as the whole order was not received, thank you # [phone] [facility] Comment on above: Result Comment: Elec tronically Signed By: Anuradha Perera\.br\Date and Time Signed: 08/08/23 09:02 EST Ambulatory Visit Summaryon 0 08-07-2023 Ambulatory Visit Summary MAGDALENO VALDERRAMA :1940 Visit Date:08/07/2023 Ambulatory Visit Instructions Your Diagnosis Parkinson's disease Hypothyroidism Mild pulmonary hypertension 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 5. 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 Normal [facility] Comment on above: Result Comment: Elec tronically Signed By: Christo Orellana MD\.br\Date and Time Signed: 08/07/23 18:05 EST\.br\Electronically [...] numbers. This can be done either in [place] ([place] or metric measurements. Note that charts and online BMI calculators are available to help you find your BMI quickly and easily without having to do these calculations yourself. To calculate your BMI in [place] ([place] measurements: 1. Measure your weight in [...] for Disease Control and Prevention: www.cdc.gov ? [place] Heart Association: www.heart.org ? National Heart, Lung, and Blood [place]: www.nhlbi.nih.gov Summary ? Body mass index (BMI) is a number that is calculated from a person's weight and height. ? BMI may help estimate how much of a person's weight is composed of fat. BMI can help identify those who may be at higher risk for certain medical problems. ? BMI can be measured using Pakistani measurements or metric measurements. ? BMI charts are used to identify whether you are underweight, normal weight, overweight, or obese. This information is not intended to replace advice given to you by your health care provider. Make sure you discuss any questions you have with your health care provider. Document Revised: 04/08/2020 Document Reviewed: 02/14/2020 [employer]ak[employer] Patient Education ? 2022 [employer]er. [facility] Pre-Visit Planningon 024 Pre-Visit Planning - From: Kaice Baez To: Reyna MEJIA, Christo Alas; Sent: 08/04/2023 16:04:25 EST Subject: Pre-Visit Planning Due Date/Time: 08/04/2023 16:04:00 EST Caller Name: MAGDALENO VALDERRAMA; Caller Number: Jahaira , M , B [place] Dr. Orellana. During a pre-visit planning chart review, I noted the following documentation in the medical record: Current Problem List: Parkinson's disease and Cognitive dysfunction. Current Medication List: carbidopa-levodopa, donepezil, and rasagiline. [facility]/15[facility] Office Visit Note: Assessment/Plan- 5. Parkinson's disease (G20: Parkinson's disease) The patient is seeing a specialist, Dr. Montilla out of [place]. The patient has carbidopa levodopa for this. [...] feel free to contact me at extension [phone]. Thank you! Kacie Baez LPN From: Reyna MEJIA, Christo Alas To: Kacie Baez; Sent: 08/07/2023 11:49:22 EST Subject: RE: Pre-Visit Planning Caller Name: MAGDALENO VALDERRAMA; Caller Number: Jahaira , M , B Dementia associated Parkinson's Normal [address] [facility] Basic Metabolic Panelon 12- Creatinine Clr Calc Pharmacy 44.81 Normal [facility] Comment on above: Result Comment: PERF ORMED BY: [place] [address] PATHOLOGIST WIL[employer] CONSERVATION OFFICER ANGELIC RANDOLPH M.D. Performed By: #### B MP #### [address] GFR/1.73 sq M.predicted MDRD (S/P/Bld) [Vol rate/Area] mL/min/{1.73_m2} Normal [facility] Comment on above: Performed By: #### B MP #### [address] Calcium [Mass/volume] in Ser um or PlasmaOrdered By: Ashwini Clancy on 07-22-2023 Calcium [Mass/Vol] 8.8 mg/dL Normal 8.6-10.3 [facility] Comment on above: Performed By: #### B MP #### [place] [address] [place] Carbon dioxide, total [Moles /volume] in Serum or PlasmaOrdered By: Ashwini Clancy on 07-22-2023 CO2 [Moles/Vol] 27.8 mmol/L Normal 21.0-31.0 [facility] Comment on above: Performed By: #### B MP #### [address] [place] [address] [place] Chloride [Moles/volume] in S siddharth or PlasmaOrdered By: Ashwini Clancy on 07-22-2023 Chloride [Moles/Vol] 103 mmol/L Normal 98-107 [facility] Comment on above: Performed By: #### B MP #### [facility] [address] [place] [id number] [facility] Creatinine [Mass/volume] in Serum or PlasmaOrdered By: Ashwini Clancy on 07-22-2023 Creatinine [Mass/Vol] 1.04 mg/dL Normal 0.70-1.30 [facility] Comment on above: Performed By: #### B MP #### [facility] [address] ECG 12 lead ECGon 07-22-2023 ECG 12 lead ECG [facility] [place] [address] [place] [address] Electrocardiograph Report Signed Patient: Magdaleno Valderrama MR#: [id number] : 1940 Acct:[id number] Age/Sex: 83 / M ADM Date: 07/21/23 Loc: Room: [address] [place] [address] Type: ADM IN Attending Dr: Ashwini Clancy [...] pacemaker has replaced Sinus rhythm Conf[id number] on 07/22/2023 3:25:23 PM Referred By: Electronically Signed By:RONNIE MIRELES MD [facility] Transcribed By: MUS Signed By Roel Mireles MD 07/22/23 1525 Normal [facility] Glucose [Mass/volume] in Ser um or PlasmaOrdered By: Ashwini Clancy on 07-22-2023 Glucose [Mass/Vol] 84 mg/dL Normal 70-100 [facility] Comment on above: ADA recommended refe rence rangeRandom Glucose Reference Range is dependent on time and content of last meal. Glucose of more than 200 mg/dL in a nonstressed, ambulatory subject supports the diagnosis of Diabetes Mellitus. Result Comment: [place] om Glucose Reference Range is dependent on time and content of last meal. Glucose of more than 200 mg/dL in a nonstressed, ambulatory subject supports the diagnosis of Diabetes Mellitus. ADA recommended reference range Performed By: #### B MP #### [facility] [address] No Panel InformationOrdered By: Ashwini Clancy on 07-22-2023 Estimated GFR (CKD-EPI) > 60.0 mL/Min [facility] Creatinine Clearance (Chem 44.81 [facility] Potassium [Moles/volume] in Serum or PlasmaOrdered By: Ashwini Clancy on 07-22-2023 Potassium [Moles/Vol] 4.2 mmol/L Normal 3.5-5.1 [facility] Comment on above: Performed By: #### B MP #### [address] Serum or plasma anion gap de terminationOrdered By: Ashwini Clancy on 07-22-2023 Anion gap [Moles/Vol] 9.4 mmol/L Normal 6.0-15.0 [facility] Comment on above: Performed By: #### B MP #### [facility] [address] Sodium [Moles/volume] in Ser um or PlasmaOrdered By: Ashwini Clancy on 07-22-2023 Sodium [Moles/Vol] 136 mmol/L Normal 136-145 [facility] Comment on above: Performed By: #### B MP #### [address] Urea nitrogen [Mass/volume] in Serum or PlasmaOrdered By: Ashwini Clancy on 07-22-2023 Urea nitrogen [Mass/Vol] 30 mg/dL High 02-21 [facility] Comment on above: Performed By: #### B MP #### [address] Activated partial thrombopla stin time (aPTT) in platelet poor plasma by coagulation aOrdered By: David Reis on 07-21-2023 aPTT Coag (PPP) [Time] 42.0 s 25.1-36.5 [facility] Comment on above: A hematocrit value g reater than 55% may lead to inaccurate results in coagulation testing. Patients having hematocrit values >55% require a special collection tube for coagulation studies. Please contact the laboratory at [phone] for redraw instructions. Alanine aminotransferase [En zymatic activity/volume] in Serum or PlasmaOrdered By: David Reis on 07-21-2023 ALT [Catalytic activity/Vol] 5 U/L Low [facility] Comment on above: Performed By: #### A DDONUAPLUS #### [place] [address] [place] Albumin [Mass/volume] in Ser um or Plasma by Bromocresol green (BCG) dye binding methoOrdered By: David Reis on 07-21-2023 Albumin BCG dye [Mass/Vol] 4.3 g/dL 3.5-5.7 [facility] Alkaline phosphatase [Enzyma tic activity/volume] in Serum or PlasmaOrdered By: David Reis on 07-21-2023 ALP [Catalytic activity/Vol] 74 U/L Normal 34-104 [facility] Comment on above: Performed By: #### A DDONUAPLUS #### [place] [address] [place] Aspartate aminotransferase [ Enzymatic activity/volume] in Serum or PlasmaOrdered By: David Reis on 07-21-2023 AST [Catalytic activity/Vol] 18 U/L Normal 13-39 [facility] Comment on above: Performed By: #### A DDONUAPLUS #### [place] [address] [place] Automated basophil %Ordered By: David Reis on 07-21-2023 Basophils/100 WBC (Bld) 0.5 % Normal . [facility] Comment on above: Performed By: #### A DDONUAPLUS #### [address] Automated basophil countOrde red By: David Reis on 07-21-2023 Basophils (Bld) [#/Vol] 0.0 10*3/uL Normal 0.0-0.2 [facility] Comment on above: Result Comment: PERF ORMED BY: [place] [address] PATHOLOGIST WIL[employer]IFE CONSERVATION OFFICER ANGELIC RANDOLPH M.D. Performed By: #### A DDONUAPLUS #### [address] Automated blood monocyte cou ntOrdered By: David Reis on 07-21-2023 Monocytes (Bld) [#/Vol] 0.7 10*3/uL Normal 0.0-0.8 [facility] Comment on above: Performed By: #### A DDONUAPLUS #### [address] Automated eosinophil %Ordere d By: David Reis on 07-21-2023 Eosinophils/100 WBC (Bld) 0.6 % Normal . [facility] Comment on above: Performed By: #### A DDONUAPLUS #### [address] Automated eosinophil countOr dered By: David Reis on 07-21-2023 Eosinophils (Bld) [#/Vol] 0.0 10*3/uL Normal 0.0-0.45 [facility] Comment on above: Performed By: #### A DDONUAPLUS #### [address] Automated erythrocytes count in urine sediment (number/area)Ordered By: David Reis on 07-21-2023 RBC Auto (Urine sed) [#/Area] 50-100 [HPF] 0-4 [facility] Automated leukocytes count i n urine sediment (number/area)Ordered By: David Reis on 07-21-2023 WBC Auto (Urine sed) [#/Area] 0-1 [HPF] 0-4 [facility] Automated monocyte %Ordered By: David Reis on 07-21-2023 Monocytes/100 WBC (Bld) 9.5 % Normal . [facility] Comment on above: Performed By: #### A DDONUAPLUS #### [address] Automated neutrophil %Ordere d By: David Reis on 07-21-2023 Neutrophils/100 WBC (Bld) 75.1 % Normal . [facility] Comment on above: Performed By: #### A DDONUAPLUS #### [address] Automated urine color determ inationOrdered By: David Reis on 07-21-2023 Color (U) Yellow Normal Yellow [facility] Comment on above: Order Comment: Name Collection Type:: Clean-Voided Midstream Performed By: #### A DDONUAPLUS #### [address] BNP ser/plasOrdered By: Rowena Reis on 07-21-2023 Natriuretic peptide B (Bld) [Mass/Vol] 248.0 pg/mL High 5-100 [facility] Comment on above: Result Comment: PERF ORMED BY: [place] [address] PATHOLOGIST WILDLIFE CONSERVATION OFFICER ANGELIC RANDOLPH M.D. Performed By: #### A DDONUAPLUS #### [address] Bilirubin Test strip Ql (U)O rdered By: David Reis on 07-21-2023 Bilirubin Ql (U) Negative Negative [facility] Bilirubin.total [Mass/volume ] in Serum or PlasmaOrdered By: David Reis on 07-21-2023 Bilirubin [Mass/Vol] 0.8 mg/dL Normal 0.3-1.0 [facility] Comment on above: Performed By: #### A DDONUAPLUS #### [facility] [address] Calcium [Mass/volume] in Ser um or PlasmaOrdered By: David Reis on 07-21-2023 Calcium [Mass/Vol] 10.1 mg/dL Normal 8.6-10.3 [facility] Comment on above: Performed By: #### A DDONUAPLUS #### [address] Carbon dioxide, total [Moles /volume] in Serum or PlasmaOrdered By: David Reis on 07-21-2023 CO2 [Moles/Vol] 31.7 mmol/L High 21.0-31.0 [facility] Comment on above: Performed By: #### A DDONUAPLUS #### [address] Chloride [Moles/volume] in S siddharth or PlasmaOrdered By: David Reis on 07-21-2023 Chloride [Moles/Vol] 99 mmol/L Normal 98-107 [facility] Comment on above: Performed By: #### A DDONUAPLUS #### [address] Complete Blood Count Auto Di ffon 07-21-2023 Mean Corpuscular HGB Conc 33.2 g/dL Normal 32.5-35.6 [facility] Comment on above: Performed By: #### A DDONUAPLUS #### [place] [address] [place] Monocytes/100 WBC (Bld) 15.92 % Normal 0.00-20.00 [facility] Comment on above: Performed By: #### A DDONUAPLUS #### [place] [address] [place] NRBC% 0.1 /100{WBC} Normal 0-0.5 [facility] Comment on above: Performed By: #### A DDONUAPLUS #### [address] Comprehensive Metabolic Pane eric 07-21-2023 Albumin [Mass/Vol] 4.3 g/dL Normal 3.5-5.7 [facility] Comment on above: Performed By: #### A DDONUAPLUS #### [place] [address] [place] Creatinine Clr Calc Pharmacy 31.23 Normal [facility] Comment on above: Performed By: #### A DDONUAPLUS #### [place] [address] [place] GFR/1.73 sq M.predicted MDRD (S/P/Bld) [Vol rate/Area] 48.423 mL/min/{1.73_m2} Normal [facility] Comment on above: Performed By: #### A DDONUAPLUS #### [address] Creatine kinase [Enzymatic a ctivity/volume] in Serum or PlasmaOrdered By: David Reis on 07-21-2023 CK [Catalytic activity/Vol] 27 U/L Low 30-223 [facility] Comment on above: Performed By: #### A DDONUAPLUS #### [address] Creatinine [Mass/volume] in Serum or PlasmaOrdered By: David Reis on 07-21-2023 Creatinine [Mass/Vol] 1.42 mg/dL High 0.70-1.30 [facility] Comment on above: Performed By: #### A DDONUAPLUS #### [place] [address] [place] Dipstick and Microscopicon 1 09-21-2022 Appearance (U) Clear Normal Clear [facility] Comment on above: Order Comment: Name Collection Type:: Clean-Voided Midstream Performed By: #### A DDONUAPLUS #### [place] [address] [place] Bacteria,Urine None Seen Normal None Seen [facility] Comment on above: Order Comment: Name Collection Type:: Clean-Voided Midstream Performed By: #### A DDONUAPLUS #### [place] [address] [place] Bilirubin,Urine Negative Normal Negative [facility] Comment on above: Order Comment: Name Collection Type:: Clean-Voided Midstream Performed By: #### A DDONUAPLUS #### [address] Glucose Ql (U) Normal Normal Normal [facility] Comment on above: Order Comment: Name Collection Type:: Clean-Voided Midstream Performed By: #### A DDONUAPLUS #### [address] Hyaline Casts,Urine 0-8 Normal 0-8 [facility] Comment on above: Order Comment: Name Collection Type:: Clean-Voided Midstream Result Comment: PERF ORMED BY: [place] [address] PATHOLOGIST W[employer]IFE CONSERVATION OFFICER ANGELIC RANDOLPH M.D. Performed By: #### A DDONUAPLUS #### [address] Ketones Ql (U) Negative Normal Negative [facility] Comment on above: Order Comment: Name Collection Type:: Clean-Voided Midstream Performed By: #### A DDONUAPLUS #### [address] Leukocyte esterase Test strip Ql (U) Negative Normal Negative [facility] Comment on above: Order Comment: Name Collection Type:: Clean-Voided Midstream Performed By: #### A DDONUAPLUS #### [place] [address] [place] Nitrite,Urine Negative Normal Negative [facility] Comment on above: Order Comment: Name Collection Type:: Clean-Voided Midstream Performed By: #### A DDONUAPLUS #### [place] [address] [place] Occult Blood,Urine 2+ High Negative [facility] Comment on above: Order Comment: Name Collection Type:: Clean-Voided Midstream Result Comment: PERF ORMED BY: [place] [address] PATHOLOGIST WIL[employer]IFE CONSERVATION OFFICER ANGELIC RANDOLPH M.D. Performed By: #### A DDONUAPLUS #### [address] Protein,Urine Negative Normal Negative [facility] Comment on above: Order Comment: Name Collection Type:: Clean-Voided Midstream Performed By: #### A DDONUAPLUS #### [address] RBC,Urine 50-100 High 0-4 [facility] Comment on above: Order Comment: Name Collection Type:: Clean-Voided Midstream Performed By: #### A DDONUAPLUS #### [address] Specificy [place],Urine 1.011 Normal 1.001-1.030 [facility] Comment on above: Order Comment: Name Collection Type:: Clean-Voided Midstream Performed By: #### A DDONUAPLUS #### [address] Squamous Epithelial Cell,Urine None Seen Normal 0-2 [facility] Comment on above: Order Comment: Name Collection Type:: Clean-Voided Midstream Performed By: #### A DDONUAPLUS #### [address] Urobilinogen,Urine Normal Normal Normal [facility] Comment on above: Order Comment: Name Collection Type:: Clean-Voided Midstream Performed By: #### A DDONUAPLUS #### [address] WBC LM.HPF (Urine sed) [#/Area] 0 /[HPF] Normal 0-4 [facility] Comment on above: Order Comment: Name Collection Type:: Clean-Voided Midstream Performed By: #### A DDONUAPLUS #### [address] ECG 12 lead ECGon 07-21-2023 ECG 12 lead ECG [facility] [place] [address] [place] [address] Electrocardiograph Report Signed Patient: Magdaleno Valderrama MR#: [id number] 181 : 1940 Acct:[id number] Age/Sex: 83 / M ADM Date: 07/21/23 Loc: Room: [address] [place] [address] Type: ADM IN Attending Dr: Ashwini Clancy [...] By Terri Ayers MD 07/21/23 1509 Normal [facility] Erythrocyte distribution wid th [Ratio] by Automated countOrdered By: David Reis on 07-21-2023 Erythrocyte distribution width (RBC) [Ratio] 14.9 % High 12.0-14.8 [facility] Comment on above: Performed By: #### A DDONUAPLUS #### [facility] [address] Erythrocytes [#/volume] in B lood by Automated countOrdered By: David Reis on 07-21-2023 RBC (Bld) [#/Vol] 4.46 10*6/uL Normal 3.90-5.60 [facility] Comment on above: Performed By: #### A DDONUAPLUS #### [facility] [address] Glucose [Mass/volume] in Ser um or PlasmaOrdered By: David Reis on 12-22-2023 Glucose [Mass/Vol] 97 mg/dL Normal 70-100 [facility] Comment on above: ADA recommended refe rence rangeRandom Glucose Reference Range is dependent on time and content of last meal. Glucose of more than 200 mg/dL in a nonstressed, ambulatory subject supports the diagnosis of Diabetes Mellitus. Result Comment: [place] om Glucose Reference Range is dependent on time and content of last meal. Glucose of more than 200 mg/dL in a nonstressed, ambulatory subject supports the diagnosis of Diabetes Mellitus. ADA recommended reference range Performed By: #### A DDONUAPLUS #### [address] Hematocrit [Volume Fraction] of Blood by Automated countOrdered By: David Reis on 07-21-2023 Hematocrit (Bld) [Volume fraction] 40.9 % Normal 38.8-50.0 [facility] Comment on above: Performed By: #### A DDONUAPLUS #### [facility] [address] [place] [address] Hemoglobin [Mass/volume] in BloodOrdered By: David Reis on 07-21-2023 Hemoglobin (Bld) [Mass/Vol] 13.6 g/dL Normal 13.0-17.0 [facility] Comment on above: Performed By: #### A DDONUAPLUS #### [address] INR in Platelet poor plasma by Coagulation assayOrdered By: David Reis on 07-21-2023 INR Coag (PPP) [Relative time] 2.2 {INR} Normal [facility] Comment on above: INR Therapeutic Rang e A) Pre- and Peroperative OAT started two weeks before surgery. NOT HIP SURGERY: 1.5 - 2.5 HIP SURGERY: 2 - 3B) Primary and secondary prevention of venous THROMBOSIS: 2 - 3C) Active venous thrombosis, pulmonary embolismand prevention of recurrent venous thrombosis: 2 - 3D) Prevention of arterial thromboembolismincluding patients with mechanical heart valves: 3 - 4.5 Result Comment: INR Therapeutic Range A) Pre- [...] valves: 3 - 4.5 Performed By: #### A DDONUAPLUS #### [address] Ketones Auto test strip (U) [Mass/Vol]Ordered By: David Reis on 07-21-2023 Ketones (U) [Mass/Vol] Negative Negative [facility] - UrinalysisOrder ed By: David Reis on 07-21-2023 Hyaline casts LM Ql (Urine sed) 0-8 [LPF] 0-8 [facility] Lactate [Moles/volume] in Se rum or PlasmaOrdered By: David Reis on 07-21-2023 Lactate [Moles/Vol] 1.0 mmol/L Normal 0.5-2.2 [facility] Comment on above: Result Comment: PERF ORMED BY: [place] [address] PATHOLOGIST [employer] OFFICER ANGELIC RANDOLPH M.D. Performed By: #### A DDONUAPLUS #### [address] Leukocytes [#/volume] correc parag for nucleated erythrocytes in Blood by Automated counOrdered By: David Reis on 07-21-2023 WBC corrected for nucl RBC Auto (Bld) [#/Vol] 7.7 10*3/uL 4.1-10.5 [facility] Leukocytes [#/volume] in Blo od by Automated countOrdered By: David Reis on 07-21-2023 WBC (Bld) [#/Vol] 7.7 10*3/uL Normal 4.1-10.5 [facility] Comment on above: Performed By: #### A DDONUAPLUS #### [place] [address] [place] Lymphocytes [#/volume] in Bl ood by Automated countOrdered By: David Reis on 07-21-2023 Lymphocytes (Bld) [#/Vol] 1.1 10*3/uL Normal 1.00-4.8 [facility] Comment on above: Performed By: #### A DDONUAPLUS #### [address] Lymphocytes/100 leukocytes i n Blood by Automated countOrdered By: David Reis on 07-21-2023 Lymphocytes/100 WBC (Bld) 14.3 % Normal . [facility] Comment on above: Performed By: #### A DDONUAPLUS #### [address] MCH [Entitic mass] by Automa parag countOrdered By: David Reis on 07-21-2023 MCH (RBC) [Entitic mass] 30.4 pg Normal 27.5-35.2 [facility] Comment on above: Performed By: #### A DDONUAPLUS #### [address] MCHC Auto (RBC) [Mass/Vol]Or dered By: David Reis on 07-21-2023 MCHC (RBC) [Mass/Vol] 33.2 g/dL 32.5-35.6 [facility] MCV [Entitic volume] by Auto mated countOrdered By: David Reis on 07-21-2023 MCV (RBC) [Entitic vol] 91.8 fL Normal 83.5-101 [facility] Comment on above: Performed By: #### A DDONUAPLUS #### [address] Magnesium [Mass/volume] in S siddharth or PlasmaOrdered By: David Reis on 07-21-2023 Magnesium [Mass/Vol] 2.5 mg/dL Normal 1.9-2.7 [facility] Comment on above: Result Comment: PERF ORMED BY: [place] [address] PATHOLOGIST [employer] CONSERVATION OFFICER ANGELIC RANDOLPH M.D. Performed By: #### A DDONUAPLUS #### [address] Monocyte distribution width [Entitic volume] in Blood by AutomatedOrdered By: David Reis on 07-21-2023 Monocyte distribution width Auto (Bld) [Entitic vol] 15.92 % 0.00-20.00 [facility] Neutrophils [#/volume] in Bl ood by Automated countOrdered By: David Reis on 07-21-2023 Neutrophils (Bld) [#/Vol] 5.8 10*3/uL Normal 1.8-7.7 [facility] Comment on above: Performed By: #### A DDONUAPLUS #### [facility] [address] [place] [address] Nitrite Test strip Ql (U)Ord ered By: David Reis on 07-21-2023 Nitrite Ql (U) Negative Negative [facility] No Panel InformationOrdered By: David Reis on 07-21-2023 Estimated GFR (CKD-EPI) 48.423 mL/Min [facility] Creatinine Clearance (Chem 31.23 [facility] Nucleated erythrocytes [Pres ence] in Blood by Automated countOrdered By: David Reis on 07-21-2023 Nucleated RBC Auto Ql (Bld) 0.1 /100{WBC} 0-0.5 [facility] Partial Thromboplastin Timeo n 07-21-2023 aPTT Coag (Bld) [Time] 42.0 s High 25.1-36.5 [facility] Comment on above: Result Comment: A he matocrit value greater than 55% may lead to inaccurate results in coagulation testing. Patients having hematocrit values >55% require a special collection tube for coagulation studies. Please contact the laboratory at [phone] for redraw instructions. PERFORMED BY: [place] [address] PATHOLOGIST [employer] CONSERVATION OFFICER ANGELIC RANDOLPH M.D. Performed By: #### A DDONUAPLUS #### [facility] [address] [place] [address] Platelet mean volume [Entiti c volume] in Blood by Automated countOrdered By: David Reis on 07-21-2023 Platelet mean volume (Bld) [Entitic vol] 8.2 fL Normal 6.6-10.1 [facility] Comment on above: Performed By: #### A DDONUAPLUS #### [facility] [address] [place] [address] [place] Platelets [#/volume] in Bloo d by Automated countOrdered By: David Smiley on 07-21-2023 Platelets (Bld) [#/Vol] 192 10*3/uL Normal 150-450 [facility] Comment on above: Performed By: #### A DDONUAPLUS #### [facility] [address] Potassium [Moles/volume] in Serum or PlasmaOrdered By: David Reis on 07-21-2023 Potassium [Moles/Vol] 4.3 mmol/L Normal 3.5-5.1 [facility] Comment on above: Performed By: #### A DDONUAPLUS #### [facility] [address] [place] [address] Protein Auto test strip (U) [Mass/Vol]Ordered By: David Reis on 07-21-2023 Protein (U) [Mass/Vol] Negative Negative [facility] Protein [Mass/volume] in Ser um or PlasmaOrdered By: David Reis on 07-21-2023 Protein [Mass/Vol] 6.9 g/dL Normal 6.4-8.9 [facility] Comment on above: Performed By: #### A DDONUAPLUS #### [facility] [address] [place] [address] Prothrombin time (PT)Ordered By: David Reis on 07-21-2023 PT Coag (PPP) [Time] 24.1 s High 9.0-12.9 [facility] Comment on above: A hematocrit value g reater than 55% may lead to inaccurate results in coagulation testing. Patients having hematocrit values >55% require a special collection tube for coagulation studies. Please contact the laboratory at [phone] for redraw instructions. Result Comment: A he matocrit value greater than 55% may lead to inaccurate results in coagulation testing. Patients having hematocrit values >55% require a special collection tube for coagulation studies. Please contact the laboratory at [phone] for redraw instructions. Performed By: #### A DDONUAPLUS #### [address] Serum globulin measurement b y calculation (mass/volume)Ordered By: David Reis on 07-21-2023 Globulin (S) [Mass/Vol] 2.6 g/dL [facility] Comment on above: Performed By: #### A DDONUAPLUS #### [address] Serum or plasma albumin/glob ulin mass ratioOrdered By: David Reis on 07-21-2023 Albumin/Globulin [Mass ratio] 1.7 {ratio} [facility] Comment on above: Performed By: #### A DDONUAPLUS #### [address] Serum or plasma anion gap de terminationOrdered By: David Reis on 07-21-2023 Anion gap [Moles/Vol] 8.6 mmol/L Normal 6.0-15.0 [facility] Comment on above: Performed By: #### A DDONUAPLUS #### [address] Sodium [Moles/volume] in Ser um or PlasmaOrdered By: David Reis on 07-21-2023 Sodium [Moles/Vol] 135 mmol/L Low 136-145 [facility] Comment on above: Performed By: #### A DDONUAPLUS #### [address] Specific gravity Auto test s trip (U) [Rel density]Ordered By: David Reis on 07-21-2023 Specific gravity (U) [Rel density] 1.011 1.001-1.030 [facility] Squamous epithelial cells de tection in urine sediment by light microscopyOrdered By: David Reis on 07-21-2023 Epithelial cells.squamous LM Ql (Urine sed) None seen [HPF] 0-2 [facility] Troponin I High Sensitivityo n 07-21-2023 Troponin I High Sensitivity 9.3 pg/mL Normal 0.0-20.0 [facility] Comment on above: Result Comment: PERF ORMED BY: [place] [address] PATHOLOGIST [employer] OFFICER ANGELIC RANDOLPH M.D. Performed By: #### A DDONUAPLUS #### [facility] [address] [place] [address] Troponin I.cardiac [Mass/vol ume] in Serum or Plasma by Detection limit <= 0.01 ng/Ordered By: David Reis on 07-21-2023 Troponin I.cardiac DL <= 0.01 ng/mL [Mass/Vol] 9.3 pg/mL 0.0-20.0 [facility] Urea nitrogen [Mass/volume] in Serum or PlasmaOrdered By: David Reis on 07-21-2023 Urea nitrogen [Mass/Vol] 38 mg/dL High 7-25 [facility] Comment on above: Performed By: #### A DDONUAPLUS #### [facility] [address] [place] [address] Urine bacteria detection by automated methodOrdered By: David Reis on 07-21-2023 Bacteria Auto Ql (U) None seen None Seen [facility] Urine clarity by refractomet ry automatedOrdered By: David Reis on 07-21-2023 Clarity Refractometry automated (U) Clear Clear [facility] Urine glucose measurement by automated test strip (mass/volume)Ordered By: David Reis on 07-21-2023 Glucose Auto test strip (U) [Mass/Vol] Normal mg/dL Normal [facility] Urine hemoglobin detection b y automated test stripOrdered By: David Reis on 07-21-2023 Hemoglobin Auto test strip Ql (U) 2+ Negative [facility] Urine leukocyte esterase det ection by automated test stripOrdered By: David Reis on 07-21-2023 Leukocyte esterase Auto test strip Ql (U) Negative Negative [facility] Urine pH measurement by auto mated test stripOrdered By: David Reis on 07-21-2023 pH (U) 5.5 [pH] Normal 5.0-9.0 [facility] Comment on above: Order Comment: Name Collection Type:: Clean-Voided Midstream Performed By: #### A DDONUAPLUS #### [facility] [address] [place] [id number] [facility] Urobilinogen Auto test strip (U) [Mass/Vol]Ordered By: David Reis on 07-21-2023 Urobilinogen (U) [Mass/Vol] Normal mg/dL Normal [facility] XR chest 2V*on 07-21-2023 XR chest 2V* [facility] [place] [address] [place] [id number] XRay Report Signed Patient: Magdaleno Valderrama MR#: [id number] 181 : 1940 Acct:[id number] Age/Sex: 83 / M ADM Date: 07/21/23 [...] Parminder Rodriguez M.D.07/21/2023 1:15 PM Dictation Location: [place] [address] Transcribed By: [facility] 07/21/23 1315 Dictated By: Parminder Rodriguez DO 07/21/23 1314 Signed By: 07/21/23 1315 Normal [facility] ED Note-Physicianon 07-19-20 ED Note-Physician [id number]#1.00TIFF Normal [facility] ED Note-Physician [id number]#[id number] Normal [facility] Family Medicine Office/Clini c Noteon 07-19-2023 Family Medicine Office/Clinic Note HPI Staff Magdaleno is an 83 year old male presenting for ER follow up attempted a pulse ox 3 times, cannot get one ER followup: Hospital: [place] Visit date: 07/14 Symptoms the patient presented with: chest was bleeding from excision of a lesion at [facility] Current concerns: here to get the bandage off, whole bandage is caked in dried blood Son says he's in a fib and 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 Recommend follow up with the loan funder. Gave precautions of when to go to [...] with dermatology. 3. On anticoagulant therapy (Z79.01: detention (current) use of anticoagulants) Advised monitoring for [...] with voice recognition artificial intelligence software, specifically VoCare, Second Genome and or RehabDev. Substitutions may have occurred due to the inherent limitations of voice recognition and artificial intelligence software. ATTESTATION: Documentation services were performed after patient or guardian consented to allow Reti[employer] to record this visit. RASHAUN fire management specialist and provider reviewed before signing. 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 Normal [facility] Comment on above: Result Comment: Elec tronically Signed By: Christo Orellana MD\.br\Date and Time Signed: 07/19/23 17:34 EST\.br\Electronically [...] signals of the heart. ? An ambulatory security monitor to record your heart's activity for [...] ? Trouble breathing. (more content not included)... [facility]23 [facility] [id number]#1.00TIFF [facility] CNPNon [facility] ----- MAGDALENO VALDERRAMA ([id number]) 1940 Date Time Provider Department 07/17/23 EFREN CARBAJAL NREUS2 During your visit today, we recorded the following information about you: Kacie Ferguson 07/17/2023 1:27 PM Signed NI PHONE Name of caller: Cristian Relationship to patient: Son/Daughter If not self Will need patient permission to release results or disclose health information with called documented in . Was permission obtained from patient? Yes Patient [...] stop this medication? Number to return call [phone] Okay to leave a message? Yes Efren Crabajal, 07/17/2023 2:53 PM Signed That is fine - the wearing-off will continue Efren Carbajal, July 17, 2023 2:53 PM Maurice Canela RN 07/17/2023 3:07 PM Signed Cristian (son) was notified and informed it is OK for Magdaleno to stop Inbrija. Allergies As of Date: 07/17/2023 Noted Allergy Reaction NEOSPORIN ([id number]*0 04/23/2009 Date Reviewed: 10/20/2022 Reviewed by: Ulysses Richard LPN - Fully Assessed Reason for Visit: Medication Question [1318] Cmt: Inbrijnicole Visit Diagnosis:Motor fluctuations related to medication use [...] mg by mouth twice daily. - vit C/E/Zn/coppr/lutein/zeaxa n (PRESERVISION AREDS-2 ORAL) Take by mouth. - [...] Encounter Status:Closed by MAURICE CANELA on 07/17/23 Normal [facility] Consultation Noteon 07-10-20 Consultation Note [id number] Normal [facility] ECG 12 Leadon 07-05-2023 [facility] Work Phone: Baseline rhythm like ly A-fib with paced rhythm [facility] Work Phone: Ambulatory Visit Summaryon 08-21-2022 Ambulatory Visit Summary MAGDALENO VALDERRAMA :1940 Visit Date:06/21/2023 Ambulatory Visit Instructions Your Diagnosis Mass of chest Skin infection BMI 21.0-21.9, adult Non-smoker Your Care Team Attending Physician - Lisa Farooq Primary Care Physician - Christo Orellana MD This Is Your Medications List apixaban [...] Appointments Monday 10:00 AM EST With: Christo Orellana MD Where: [facility] Ambulatory Visit Summary MAGDALENO VALDERRAMA :1940 Visit Date:06/21/2023 Ambulatory Visit Instructions Your Diagnosis Mass of chest Skin infection BMI 21.0-21.9, adult Non-smoker Your Care Team Attending Physician - Lisa Farooq Primary Care Physician - Christo Orellana MD This Is Your Medications List apixaban [...] Follow-Up Appointments Monday 10:00 AM EST With: Reyna MEJIA, Christo Alas Where: [facility] Normal [facility] CNCOon 06-21-2023 CNCO Letter Text Normal [facility] Family Medicine Office/Clini c Noteon 06-21-2023 Family Medicine [...] mass and lump, trunk) 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 will send antibiotics for infection. Ordered: cephalexin, 500 mg = 1 cap(s), Oral, q12hr, # 20 cap(s), Refills(s) 0, Pharmacy: [facility] #[id number], 172.2, cm, 06/21/23 14:45:00 EST, Height/Length Dosing, 64, kg, 06/21/23 14:45:00 EST, Weight Dosing 2. Skin infection (L08.9: Local infection of the skin and subcutaneous tissue, unspecified) will treat with antibiotics Ordered: cephalexin, 500 mg = 1 cap(s), Oral, q12hr, # 20 cap(s), Refills(s) 0, Pharmacy: [id number], 172.2, cm, 06/21/23 14:45:00 EST, Height/Length Dosing, 64, kg, 06/21/23 14:45:00 EST, Weight Dosing 3. BMI 21.0-21.9, adult (Z68.21: Body mass index [BMI] 21.0-21.9, adult) bmi education complete Ordered: cephalexin, 500 mg = 1 cap(s), Oral, q12hr, # 20 cap(s), Refills(s) 0, Pharmacy: [id number], 172.2, cm, 06/21/23 14:45:00 EST, Height/Length Dosing, 64, kg, 06/21/23 14:45:00 EST, Weight Dosing 4. Non-smoker (Z78.9: Other specified health status) continue not smoking Ordered: cephalexin, 500 mg = 1 cap(s), Oral, q12hr, # 20 cap(s), Refills(s) 0, Pharmacy: 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 Normal [facility] Comment on above: Result Comment: Elec tronically Signed By: Anita ALCANTARA, Lisa Sanchez\.br\Date and Time Signed: 06/21/23 15:51 EST Family [...] does not have therapy sessions. The patient?s phototypesetting equipment monitor reports that his energy levels have significantly decreased. 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 They were informed that an increase in the Dopamine dosage is not possible due to its maximum limit. He acknowledges the need to schedule his appointments later in the day. His routine for the past few months involves waking up at 6:00 AM and staying awake until 9:00 AM, with therapy sessions typically at 10:00 AM. The phototypesetting equipment monitor mentions that although he goes to bed [...] with voice recognition artificial intelligence software, specifically VoCare, Second Genome and or RehabDev. Substitutions may have occurred due to the inherent limitations of voice recognition and artificial intelligence software. Documentation services were performed after patient or guardian consented to allow [employer] to record this visit. RASHAUN fire management specialist and provider reviewed before signing. 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 [facility] Comment on above: Result Comment: Elec tronically Signed By: Christo Orellana MD\.br\Date and Time Signed: 06/01/23 10:07 EDT\.br\Electronically Co-Signed By: Marcela Guillen\.br\Date and Time Co-Signed: 05/30/23 18:30 EDT Retail - Clinical Noteon Retail - Clinical Note [id number]#[id number] [facility] Retail - Clinical Note [id number]#1.00TIFF [facility] Retail - Clinical Note [id number]#[id number] [facility] Consent for Flu Vaccineon Consent for Flu Vaccine [id number]#1.00TIFF [facility] Ambulatory Visit Summaryon 1 Ambulatory Visit Summary [...] Your Care Team Attending Physician - Christo Orellana MD Primary Care Physician - Christo Orellana MD This Is Your Medications List clonazepam [...] Once a day (at bedtime) Pickup at [facility]/pharmacy #[id number] Unchanged apixaban (Eliquis 5 mg oral tablet) [...] physician if questions or concerns Pharmacy Information [facility]/pharmacy #[id number]: [address], [place] [id number] [phone] Medications and Immunizations Administered Given influenza virus vaccine, inactivated HIGH DOSE preservative-free quadrivalent intramuscular susp, 0.7 mL, IntraMuscular. For: Hypothyroidism, BINA (obstructive sleep apnea), Primary insomnia, Abdominal aortic atherosclerosis, BMI 21.0-21.9, adult influenza virus vaccine, inactivated, IntraMuscular Allergies Neosporin (Unknown) Problems Ongoing - Any problem that you are currently receiving treatment for. Abdominal aortic atherosclerosis Atherosclerosis of coronary artery of [place]maq heart with stable angina pectoris Atrial premature [...] Patient Surve (more content not included)... Normal [facility] Auto Diffon 05-30-2023 Basophils/100 WBC (Bld) 0.3 % Normal 0.0-2.0 [facility] Comment on above: Order Comment: Order Added by Discern Expert. Performed By: #### 2 171967, 20158111, 1437833, 4318122, 93267828 ####[facility] [address] [place] [address] Basophils/Leukocytes Auto (Bld) [Pure # fraction] 0.0 E9/L Normal 0.0-0.2 [facility] Comment on above: Order Comment: Order Added by Discern Expert. Performed By: #### 2 019197, 18272662, 0343992, 6724556, 98872211 ####[address] [place] [address] Eosinophils/100 WBC (Bld) 1.6 % Normal 0.0-8.0 [facility] Comment on above: Order Comment: Order Added by Mj Expert. Performed By: #### 2 864307, 51952697, 6910519, 0676319, 19270934 ####[address] [place] [address] Eosinophils/Leukocytes Auto (Bld) [Pure # fraction] 0.1 E9/L Normal 0.0-0.5 [facility] Comment on above: Order Comment: Order Added by Discern Expert. Performed By: #### 2 185776, 95436052, 9379256, 7836152, 26697921 ####[address] [place] [address] Lymphocytes/100 WBC (Bld) 21.8 % Normal 14.0-50.0 [facility] Comment on above: Order Comment: Order Added by Discern Expert. Performed By: #### 2 446556, 97157867, 2221928, 3460487, 68345001 ####[address] [place] [address] Lymphocytes/Leukocytes Auto (Bld) [Pure # fraction] 1.7 E9/L Normal 1.0-4.0 [facility] Comment on above: Order Comment: Order Added by Discern Expert. Performed By: #### 2 034380, 31515055, 5258763, 3435254, 49309266 ####[address] [address] Monocytes/100 WBC (Bld) 10.9 % Normal 4.0-14.0 [facility] Comment on above: Order Comment: Order Added by Discern Expert. Performed By: #### 2 903920, 60100395, 9222998, 6143912, 71861887 ####[address] [address] Monocytes/Leukocytes Auto (Bld) [Pure # fraction] 0.9 E9/L Normal 0.2-1.0 [facility] Comment on above: Order Comment: Order Added by Discern Expert. Performed By: #### 2 515992, 19089578, 9024894, 6483201, 80352123 ####[address] [address] Neutrophils/100 WBC (Bld) 65.4 % Normal 36.0-75.0 [facility] Comment on above: Order Comment: Order Added by Discern Expert. Performed By: #### 2 567000, 70810100, 8426548, 4459861, 80163074 ####[address] [address] Neutrophils/Leukocytes Auto (Bld) [Pure # fraction] 5.2 E9/L Normal 2.0-7.5 [facility] Comment on above: Order Comment: Order Added by Discern Expert. Performed By: #### 2 690303, 09725867, 3596881, 4083354, 86255990 ####[address] [address] CBC w/ Auto Diffon 3 Erythrocyte distribution width (RBC) [Ratio] 14.7 % High 10.9-14.2 [facility] Comment on above: Performed By: #### 2 486613, 76762478, 0185991, 1182125, 73023641 ####[facility] [address] [place] [address] Hematocrit (Bld) [Volume fraction] 41.6 % Normal 37.7-49.0 [facility] Comment on above: Performed By: #### 2 185726, 70572461, 7079810, 0088113, 24641228 ####[address] [place] [address] Hemoglobin (Bld) [Mass/Vol] 13.7 g/dL Normal 13.5-17.5 [facility] Comment on above: Performed By: #### 2 373406, 89367685, 6151556, 9210206, 18337167 ####[address] MCH (RBC) [Entitic mass] 30.4 pg Normal 27.0-34.0 [facility] Comment on above: Performed By: #### 2 982349, 63897381, 0188734, 6408748, 73187520 ####[address] [address] MCHC (RBC) [Mass/Vol] 33.0 g/dL Normal 31.4-36.0 [facility] Comment on above: Performed By: #### 2 181396, 38106400, 5201726, 2331183, 91616707 ####[facility] [address] [place] [address] MCV (RBC) [Entitic vol] 92.0 fL Normal 80.0-100.0 [facility] Comment on above: Performed By: #### 2 496337, 99355440, 1438784, 2526131, 48339711 ####[address] [place] [address] Platelet mean volume (Bld) [Entitic vol] 8.8 fL Normal 6.4-10.8 [facility] Comment on above: Performed By: #### 2 712511, 04282878, 7372039, 6432509, 41799850 ####[facility] [address] [place] [address] Platelets (Bld) [#/Vol] 178.0 E9/L Normal 150.0-500.0 [facility] Comment on above: Performed By: #### 2 754077, 53933420, 2970846, 8543180, 52847786 ####[facility] [address] [place] [address] RBC (Bld) [#/Vol] 4.5 E12/L Normal 4.3-5.9 [facility] Comment on above: Performed By: #### 2 585659, 49095149, 3127349, 0891649, 47828477 ####[facility] [address] [place] [address] WBC corrected for nucl RBC Auto (Bld) [#/Vol] 8.0 E9/L Normal 4.0-11.0 [facility] Comment on above: Performed By: #### 2 395877, 98359072, 2685874, 8441646, 75906611 ####[facility] [address] [place] [address] CHEMISTRYOrdered By: SYSTEM SYSTEM on 05-30-2023 Albumin [Mass/Vol] 4.3 g/dL Normal 3.3 - 5.0 gm/dL [facility] Albumin/Globulin [Mass ratio] 1.6 {ratio} Normal 1.1 - 2.2 [facility] ALP [Catalytic activity/Vol] 80 [iU]/d Normal 21 - 98 Int._Unit/L [facility] ALT No additional P-5'-P [Catalytic activity/Vol] 6 [iU]/d Normal 6 - 46 Int._Unit/L [facility] Anion gap [Moles/Vol] 9 mmol/L Normal 6 - 16 mEq/L [facility] AST [Catalytic activity/Vol] 22 [iU]/d Normal 5 - 43 Int._Unit/L [facility] Bilirubin [Mass/Vol] 0.3 mg/dL Normal [...] (S/P/Bld) [Vol rate/Area] 50 mL/min/1.73 m2 Low >=59mL/min/1 .73 m2 [facility] Comment on above: Interpretive Data: [...] 134 mmol/L Low 135 - 145 mmol/L [facility] TSH Qn 0.39 m[IU]/L Normal 0.34 - 5.60 mcIU/mL [facility] Urea nitrogen [Mass/Vol] 32 mg/dL High 5 - 21 mg/dL [facility] Urea nitrogen/Creatinine [Mass ratio] 23 mg/mg High 10 - 20 [facility] CMPon 05-30-2023 Albumin [Mass/Vol] 4.3 g/dL Normal 3.3-5.0 [facility] Comment on above: Performed By: #### 2 215442, 83673801, 0949655, 8406300, 14579430 ####[facility] [address] [place] [address] Albumin/Globulin (S) [Mass conc ratio] 1.6 Normal 1.1-2.2 [facility] Comment on above: Performed By: #### 2 724380, 67113184, 0781400, 3371389, 22748099 ####[facility] [address] [place] [address] ALP [Catalytic activity/Vol] 80 Int._Unit/L Normal 21-98 [facility] Comment on above: Performed By: #### 2 094576, 96527117, 5689716, 3625901, 97726083 ####[facility] [address] [place] [address] ALT No additional P-5'-P [Catalytic activity/Vol] 6 Int._Unit/L Normal 6-46 [facility] Comment on above: Performed By: #### 2 969515, 69692817, 2656974, 6863939, 32732387 ####[facility] [address] [place] [address] Anion gap [Moles/Vol] 9 mmol/L Normal 6-16 [facility] Comment on above: Performed By: #### 2 397515, 11331232, 2354538, 1284122, 95612184 ####[facility] [address] [place] [address] AST [Catalytic activity/Vol] 22 Int._Unit/L Normal 5-43 [facility] Comment on above: Performed By: #### 2 996940, 29327603, 5855930, 0451560, 71769696 ####[facility] [address] [place] [address] Bilirubin [Mass/Vol] 0.3 mg/dL Normal 0.0-1.1 [facility] Comment on above: Performed By: #### 2 489136, 13512202, 9468561, 8733003, 31286374 ####[facility] [address] [place] [address] Calcium [Mass/Vol] 9.4 mg/dL Normal 8.9-11.1 [facility] Comment on above: Performed By: #### 2 707738, 78488480, 8653053, 0377090, 36542977 ####[facility] [address] [place] [address] Chloride [Moles/Vol] 102 mmol/L Normal 101-111 [facility] Comment on above: Performed By: #### 2 174639, 78470830, 6535565, 3574931, 38127410 ####[facility] [address] [place] [address] CO2 [Moles/Vol] 27 mmol/L Normal 21-31 [facility] Comment on above: Performed By: #### 2 915945, 77530680, 2137539, 0359735, 31622048 ####[facility] [address] [place] [address] Creatinine [Mass/Vol] 1.4 mg/dL High 0.5-1.3 [facility] Comment on above: Performed By: #### 2 460131, 05745546, 0829351, 7300104, 87868150 ####[facility] [address] [place] [address] Globulin (S) [Mass/Vol] 2.6 g/dL Normal 1.4-4.0 [facility] Comment on above: Performed By: #### 2 888309, 56729495, 6104577, 4881001, 86945015 ####[facility] [address] [place] [address] Glucose [Mass/Vol] 99 mg/dL Normal 55-199 [facility] Comment on above: Result Comment: If t his glucose result represents a fasting glucose, interpretation should refer to the following reference range: 55-99 mg/dL Performed By: #### 2 287657, 80492406, 9521967, 7726504, 72309621 ####[facility] [address] [place] [address] Potassium [Moles/Vol] 4.4 mmol/L Normal 3.5-5.3 [facility] Comment on above: Performed By: #### 2 152495, 97611568, 4493287, 6232760, 37888295 ####[facility] [address] [place] [address] Protein [Mass/Vol] 6.9 g/dL Normal 6.0-7.8 [facility] Comment on above: Performed By: #### 2 251466, 18595548, 5744311, 0000346, 31287235 ####[facility] [address] [place] [address] Sodium [Moles/Vol] 134 mmol/L Low 135-145 [facility] Comment on above: Performed By: #### 2 240107, 89887185, 1613561, 6901264, 81303388 ####[facility] [address] [place] [address] Urea nitrogen [Mass/Vol] 32 mg/dL High 5-21 [facility] Comment on above: Performed By: #### 2 619153, 33744233, 5054007, 7532956, 46420904 ####[facility] [address] [place] [address] Urea nitrogen/Creatinine [Mass ratio] 23 No Units High 10-20 [facility] Comment on above: Performed By: #### 2 731465, 91516959, 2189771, 2361312, 71067276 ####[facility] [address] [place] [address] HEMATOLOGYOrdered By: SYSTEM SYSTEM on 05-30-2023 Basophils/100 [...] 4.5 E12/L Normal 4.3 - 5.9 E12/L [facility] HemeAutoSS WBC corrected for nucl RBC Auto (Bld) [#/Vol] 8.0 E9/L Normal 4.0 - 11.0 E9/L [facility] HemeAutoSS Physician Orderon 05-30-2023 Physician Order [id number]#1.00TIFF Normal [facility] Pre-Visit Planningon 023 Pre-Visit Planning - From: Kacie Baez To: Christo Orellana MD; Sent: 05/29/2023 09:56:39 EDT Subject: Pre-Visit Planning Due Date/Time: 05/29/2023 09:56:00 EDT Caller Name: MAGDALENO VALDERRAMA; Caller Number: Jahaira , M , B Il Dr. Orellana. During a pre-visit planning chart review, I [...] feel free to contact me at extension [phone]. Thank you! Kacie Baez LPN From: Christo Orellana MD To: Kacie Baez; Sent: 05/30/2023 08:32:47 EDT Subject: RE: Pre-Visit Planning Caller Name: MAGDALENO VALDERRAMA; Caller Number: Jahaira , M , B Please add to chart. Thanks Normal [address] [facility] TSH With T4fr Reflexon 05-30 TSH Qn 0.39 m[IU]/L Normal 0.34-5.60 [facility] Comment on above: Performed By: #### 2 952189, 71650191, 9765587, 6525935, 64450381 ####[facility] [address] [place] [address] eGFRon 05-30-2023 GFR/1.73 sq M.predicted among non-blacks MDRD (S/P/Bld) [Vol rate/Area] 50 mL/min/1.73 m2 Low >=59 [facility] Comment on above: Order Comment: Order added by Discern Expert. Result Comment: Formation Fracturing Operator herve kidney disease could be indicated at eGFR's of less than 60 mL/min/1.73m2. Kidney failure is indicated at less than 15 mL/min/1.73m2. Performed By: #### 2 473766, 27181702, 0148823, 3749614, 44338009 ####[facility] [address] [place] [address] Formson 05-10-2023 Forms [id number]#1.00TIFF Normal [facility] ALDOLASE BLDon 05-05-2023 Aldolase [Catalytic activity/Vol] 4.8 mU/mL 1.5 - 8.1 U/L [facility] Aldolase SerPl-cCncon 2022 Aldolase [Catalytic activity/Vol] 4.8 mU/mL Normal 1.5-8.1 [facility] Comment on above: Order Comment: Speci men Type: BLOOD SPECIMEN Ordering Facility: [facility] Address: [address] [place] [address] Result Comment: This test was developed and its performance characteristics determined by [facility]'s [facility] [place] ([facility]). It has not been cleared or approved by the FDA. [facility] is regulated under CLIA as qualified to perform high-complexity testing. This test is used for clinical purposes. It should not be regarded as investigational or for research. Performed By: #### 1 761-6 #### [facility] CLIA [id number] [address] [facility] [id number] [place] CK CREATINE KINASEon 023 CK [Catalytic activity/Vol] 68 U/L 51 - 298 U/L [facility] CK SerPl-cCncon 05-05-2023 CK [Catalytic activity/Vol] 68 U/L Normal 51-298 [facility] Comment on above: Order Comment: Speci men Type: BLOOD SPECIMEN Ordering Facility: [facility] Address: [address] [place] [address] Performed By: #### 2 157-6, 93543-0, 30697-4 #### [facility] CLIA [id number] [address] [facility] [place] CNOVon 05-05-2023 CNOV Office Visit (NRESFV ) ----- MAGDALENO VALDERRAMA ([id number]) 1940 M Date Time Provider Department 05/05/23 11:00 AM EFREN CARBAJAL NRESFV During your visit today, we recorded the following information about you: Temperature Pulse Blood pressure Weight 97.1 degrees 82/minute 120/59 62.6 kg Efren Carbajal DO 05/05/2023 12:37 PM Signed [facility] - FOLLOW UP EVALUATION Amy Zuñiga MD [address] [place] [id number] Magdaleno Valderrama is a 82 year old [...] He goes to a PD class in [place] 3x weekly. He has more difficulty getting [...] 5 mg by mouth twice daily. vit C/E/Zn/coppr/lutein/zeaxa n (PRESERVISION AREDS-2 ORAL) Take by mouth. levothyroxine [...] Left pathological reflexes: Kailash's absent. Coordination Right: Wzmcql-xc-eavq normal. Rapid alternating movement normal.Left: Zcshrl-ep-cuzu normal. Rapid alternating movement normal. Gait Casual [...] achieved. Rigidit (more content not included)... Normal [facility] Comprehensive metabolic 2000 panelon 05-05-2023 Albumin [Mass/Vol] 4.3 g/dL Normal 3.9-4.9 [facility] Comment on above: Order Comment: Speci men Type: BLOOD SPECIMEN Ordering Facility: [facility] Address: [address] [place] [address] Performed By: #### 2 157-6, 79451-6, #### [facility] CLIA [id number] [place] [address] [place] ALP [Catalytic activity/Vol] 93 U/L Normal 38-113 [facility] Comment on above: Order Comment: Speci men Type: BLOOD SPECIMEN Ordering Facility: [facility] Address: [address] [place] [address] Performed By: #### 2 157-6, 46506-4, #### [facility] CLIA [id number] [place] [address] [place] ALT [Catalytic activity/Vol] U/L Low 10-54 [facility] Comment on above: Order Comment: Speci men Type: BLOOD SPECIMEN Ordering Facility: [facility] Address: [address] [place] [address] Performed By: #### 2 157-6, 21408-9, #### [facility] CLIA [id number] [facility] [place] [address] [place] Anion gap [Moles/Vol] 11 mmol/L Normal 9-18 [facility] Comment on above: Order Comment: Speci men Type: BLOOD SPECIMEN Ordering Facility: [facility] Address: [address] [place] [address] Performed By: #### 2 157-6, 68472-2, 97978-6 #### [facility] CLIA [id number] [place] [address] [place] AST [Catalytic activity/Vol] 20 U/L Normal 14-40 [facility] Comment on above: Order Comment: Speci men Type: BLOOD SPECIMEN Ordering Facility: [facility] Address: [address] [place] [address] Performed By: #### 2 157-6, 76122-6, #### [facility] CLIA [id number] [address] [place] [address] [place] Bilirubin [Mass/Vol] 0.5 mg/dL Normal 0.2-1.3 [facility] Comment on above: Order Comment: Speci men Type: BLOOD SPECIMEN Ordering Facility: [facility] Address: [address] [place] [address] Performed By: #### 2 157-6, 56753-2, #### [facility] CLIA [id number] [address] [place] [address] [place] Calcium [Mass/Vol] 9.6 mg/dL Normal 8.5-10.2 [facility] Comment on above: Order Comment: Speci men Type: BLOOD SPECIMEN Ordering Facility: [facility] Address: [address] [place] [address] Performed By: #### 2 157-6, 83058-3, #### [facility] CLIA [id number] [address] [place] [address] [place] Chloride [Moles/Vol] 99 mmol/L Normal 97-105 [facility] Comment on above: Order Comment: Speci men Type: BLOOD SPECIMEN Ordering Facility: [facility] Address: [address] [place] [address] Performed By: #### 2 157-6, 82800-7, #### [facility] CLIA [id number] [address] [place] [address] [place] CO2 [Moles/Vol] 29 mmol/L Normal 22-30 [facility] Comment on above: Order Comment: Speci men Type: BLOOD SPECIMEN Ordering Facility: [facility] Address: [address] [place] [address] Performed By: #### 2 157-6, 11478-6, #### [facility] CLIA [id number] [facility] [place] [address] [place] Creatinine [Mass/Vol] 1.13 mg/dL Normal 0.73-1.22 [facility] Comment on above: Order Comment: Daria taylor Type: BLOOD SPECIMEN Ordering Facility: [facility] Address: [address] [place] [address] Performed By: #### 2 157-6, 56229-9, #### [facility] CLIA [id number] [facility] [place] [address] [place] Creatinine and Glomerular filtration rate.predicted panel (S/P/Bld) 64 mL/min/1.73m??? Normal >=60 [facility] Comment on above: Order Comment: Daria [facility] Type: BLOOD SPECIMEN Ordering Facility[facility] Address: [address] [place] [address] Result Comment: Clotilde mated Glomerular Filtration Rate [...] actual GFR. Performed By: #### 2 157-6, 34557-4, #### [facility] CLIA [id number] [facility] [place] [address] [place] Glucose [Mass/Vol] 88 mg/dL Normal 74-99 [facility] Comment on above: Order Comment: Daria taylor Type: BLOOD SPECIMEN [facility] Address: [address] [place] [address] Result Comment: The [place] Diabetes Association (ADA) provides guidance for cutoff [...] Standards of Medical Care in Diabetes 2016, [place] [employer]. Diabetes Care. 2016.39(Suppl 1). Performed By: #### 2 157-6, 88067-0, #### [facility] CLIA [id number] [address] [place] [address] [place] Potassium [Moles/Vol] 4.1 mmol/L Normal 3.7-5.1 [facility] Comment on above: Order Comment: Speci men Type: BLOOD SPECIMEN Ordering Facility[facility] Address: [address] [place] [address] Performed By: #### 2 157-6, 86828-1, #### [facility] CLIA [id number] [place] [address] [place] Protein [Mass/Vol] 6.9 g/dL Normal 6.3-8.0 [facility] Comment on above: Order Comment: Speci men Type: BLOOD SPECIMEN Ordering Facility: [facility] Address: [address] [place] [address] Performed By: #### 2 157-6, 75217-1, #### [facility] CLIA [id number] [address] [place] [address] [place] Sodium [Moles/Vol] 139 mmol/L Normal 136-144 [facility] Comment on above: Order Comment: Speci men Type: BLOOD SPECIMEN Ordering Facility: [facility] Address: [address] [place] [address] Performed By: #### 2 157-6, 35523-9, #### [facility] CLIA [id number] [place] [address] [place] Urea nitrogen [Mass/Vol] 35 mg/dL High 9-24 [facility] Comment on above: Order Comment: Speci men Type: BLOOD SPECIMEN Ordering Facility: [facility] Address: [address] [place] [address] [place] [address] Performed By: #### 2 157-6, 62676-8, 01876-2 #### [facility] CLIA [id number] [facility] [place] [address] [place] [facility] Albumin [Mass/Vol] 4.3 g/dL 3.9 - 4.9 g/dL [facility] ALP [Catalytic activity/Vol] 93 U/L 38 - 113 U/L [facility] ALT [Catalytic activity/Vol] Low 10 - 54 U/L [facility] Anion gap [Moles/Vol] 11 mmol/L 9 - 18 mmol/L [facility] AST [Catalytic activity/Vol] 20 U/L 14 - 40 U/L [facility] Bilirubin [Mass/Vol] 0.5 mg/dL 0.2 - 1 .3 mg/dL [facility] Calcium [Mass/Vol] 9.6 mg/dL 8.5 - 10. 2 mg/dL [facility] Chloride [Moles/Vol] 99 mmol/L 97 - 10 5 mmol/L [facility] CO2 [Moles/Vol] 29 mmol/L 22 - 30 mmol/L [facility] Creatinine [Mass/Vol] 1.13 mg/dL 0.73 - 1.22 mg/dL [facility] Estimated Glomerular Filtration Rate 64 mL/min/1.73m >=60 mL/min/1.73m [facility] Glucose [Mass/Vol] 88 mg/dL 74 - 99 mg/dL [facility] Potassium [Moles/Vol] 4.1 mmol/L 3.7 - 5.1 mmol/L [facility] Protein [Mass/Vol] 6.9 g/dL 6.3 - 8.0 g/dL [facility] Sodium [Moles/Vol] 139 mmol/L 136 - 144 mmol/L [facility] Urea nitrogen [Mass/Vol] 35 mg/dL High 9 - 24 mg/dL [facility] ESR Westergren method (Bld) [Velocity]on 05-05-2023 ESR (Bld) [Velocity] 5 mm/h 0 - 15 mm/hr Cl [facility] ESR (Bld) [Velocity] 5 mm/h Normal 0-15 [facility] Comment on above: Order Comment: Speci men Type: BLOOD SPECIMEN Ordering Facility[facility] Address: [place] [address] Performed By: #### 4 537-7 #### [facility] CLIA [id number] [address] [place] [address] [place] MAGNESIUM BLDon 05-05-2023 Magnesium [Mass/Vol] 2.4 mg/dL High 1.7 - 2 .3 mg/dL [facility] Magnesium SerPl-mCncon 05-05 Magnesium [Mass/Vol] 2.4 mg/dL High 1.7-2.3 [facility] Comment on above: Order Comment: Speci men Type: BLOOD SPECIMEN Ordering Facility: [facility] Address: [place] [address] Performed By: #### 2 157-6, 29035-2, 54437-3 #### [facility] CLIA [id number] [address] [facility] [place] [address] [place] PYRUVATE+LACTATE BLon 2022 Lactate [Moles/Vol] 1.2 mmol/L 0.5 - 2. 2 mmol/L [facility] Pyruvate (Bld) [Moles/Vol] 0.02 mmol/L Low 0.03 - 0.10 mmol/L [facility] Lactate [Moles/Vol] 1.2 mmol/L Normal 0.5-2.2 [facility] Comment on above: Order Comment: Speci men Type: BLOOD SPECIMEN [facility]ing [facility] Address: [address] [place] [address] Result Comment: This test was developed and its performance characteristics determined by [facility]'s Raj JEfren [facility] Pathology and Laboratory [facility] [place] ([facility]). It has not been cleared or approved by the FDA. [facility] is regulated under CLIA as qualified to perform high-complexity testing. This test is used for clinical purposes. It should not be regarded as investigational or for research. Performed By: #### L ACPYR #### [facility] CLIA [id number] [address] [place] [address] [place] Pyruvate (Bld) [Moles/Vol] 0.02 mmol/L Low 0.03-0.10 [facility] Comment on above: Order Comment: Speci men Type: BLOOD SPECIMEN Ordering Facility: [facility] Address: [address] [place] [address] Result Comment: This test was developed and its performance characteristics determined by [facility]'s [facility] [place] ([facility] It has not been cleared or approved by the FDA. -[facility] [facility]OSPITAL is regulated under CLIA as qualified to perform high-complexity testing. This test is used for clinical purposes. It should not be regarded as investigational or for research. Performed By: #### L ACPYR #### [facility] CLIA [id number] [place] [address] [place] Ambulatory Visit Summaryon 0 03-20-2023 Ambulatory Visit Summary MAGDALENO VALDERRAMA :1940 Visit Date:03/20/2023 Ambulatory Visit Instructions Your Diagnosis BMI 29.0-29.9,adult Former smoker Constipation in male Your Care Team Attending Physician - Christo Orellana MD Primary Care Physician - Christo Orellana MD This Is Your Medications List apixaban [...] EDT With: Reyna MEJIA, Christo Alas Where: [facility] Normal [facility] ED Note-Physicianon 03-20-20 ED Note-Physician [id number]:12 7 Normal [facility] Medicine Office/Clini c Noteon 03-20-2023 [facility] Medicine Office/Clinic Note HPI Staff Magdaleno is a 82 year old male presenting with Constipation complaints of: Constipation (Requested [facility] ER report 03/20/23 went due to [...] History 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 This can be done either in [place] ([place] or metric measurements. Note that charts and online BMI calculators are available to help you find your BMI quickly and easily without having to do these calculations yourself. To calculate your BMI in [place] ([place] measurements: 1. Measure your weight in [...] for Disease Control and Prevention: www.cdc.gov ? [place] Heart Association: www.heart.org ? National Heart, Lung, and Blood [place]: www.nhlbi.nih.gov Summary ? Body mass index (BMI) is a number that is calculated from a person's weight and height. ? BMI may help estimate how much of a person's weight is composed of fat. BMI can help identify those who may be at higher risk for certain medical problems. ? BMI can be measured using Pakistani measurements or metric measurements. ? BMI charts are used to identify whether you are underweight, normal weight, overweight, or obese. This information is not intended to replace advice given to you by your health care provider. Make sure you discuss any questions you have with your health care provider. Document Revised: 04/08/2020 Document Reviewed: 02/14/2020 [employer] Patient Education ? 2022 [employer] Normal [facility] RAD - CT Reporton 03-15-2023 RAD - CT Report [id number]:12 7 Normal [facility] RAD - MISCon 03-14-2023 RAD - MISC [id number]:12 7 [facility] Ambulatory Visit Summaryon 0 02-20-2023 Ambulatory Visit Summary LAVELLE MAGDALENO Goldberg :1940 Visit Date:02/20/2023 Ambulatory Visit Instructions Your Diagnosis Atrial premature beats Hypothyroidism, unspecified type BINA (obstructive sleep apnea) BMI 21.0-21.9, adult Non-smoker Your Care Team Attending Physician - Christo Orellana MD Primary Care Physician - Christo Orellana MD This Is Your Medications List apixaban [...] Appointments Monday 10:00 AM EDT With: Christo Orellana MD Where: [facility] Medicine Office/Clini c Noteon 02-20-2023 [...] the emergency room. He has seen a loan funder, Dr. Cesar, who advised him that he [...] depolarization) Per EKG given to me by [employer], the patient has premature atrial beats; however, there seems to be a lot of these. The patient has no symptoms at this time. The patient is continuing to be on Eliquis. At this time, I had requested that the patient discuss this with his loan funder, so we know exactly what medication he [...] with voice recognition artificial intelligence software, specifically [employer], [employer] and or [employer]. Substitutions may have occurred due to the inherent limitations of voice recognition and artificial intelligence software. ATTESTATION: Documentation services were performed after patient or guardian consented to allow [employer] to record this visit. RASHAUN fire management specialist and provider reviewed before signing. RASHAUN: Stephanie Sauceda. 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 Normal [facility] Comment on above: Result Comment: Elec tronically Signed By: Christo Orellana MD\.br\Date and Time Signed: 02/20/23 13:13 EDT\.br\Electronically Co-Signed By: Stephanie Sauceda\.br\Date and Time Co-Signed: 02/20/23 11:43 EDT Radiologyon 12-29-2022 XR Chest 2 Views Normal [facility] l[address] DO Work Phone: Carbon dioxide, total [Moles /volume] in Serum or PlasmaOrdered By: Edel Cesar on 12-13-2022 CO2 [Moles/Vol] 30.5 mmol/L 21.0-31.0 [facility] Chloride [Moles/volume] in S siddharth or PlasmaOrdered By: Edel Cesar on 12-13-2022 Chloride [Moles/Vol] 99 mmol/L 98-107 [facility] No Panel Informationon 12-13 12.9\S\12.9 Normal 6.0-15.0 [facility] [address] DO Work Phone: Comment on above: PERFORMED BY:[address] [address] [place], [place] [id number] MEDICAL DIRECTORANGELIC RANDOLPH M.D. 30.5\S\30.5 Normal 21.0-31.0 [facility] [address] DO Work Phone: 99\S\99 Normal 98-107 [facility] [address] DO Work Phone: 4.4\S\4.4 Normal 3.5-5.1 [facility] [address] DO Work Phone: 138\S\138 Normal 136-145 -[facility] [address] DO Work Phone: Potassium [Moles/volume] in Serum or PlasmaOrdered By: Edel Cesar on 12-13-2022 Potassium [Moles/Vol] 4.4 mmol/L 3.5-5.1 [facility] Serum or plasma anion gap de terminationOrdered By: Edel Cesar on 12-13-2022 Anion gap [Moles/Vol] 12.9 mmol/L 6.0-15.0 [facility] Sodium [Moles/volume] in Ser um or PlasmaOrdered By: Edel Cesar on 12-13-2022 Sodium [Moles/Vol] 138 mmol/L 136-145 [facility] PROF CHEM 8 (BAS METB)on Anion gap [Moles/Vol] 10.5 mmol/L Normal [facility] Comment on above: Performed By: #### B MP #### [facility] [address] [address] [address] Kaylene Montoya Calcium [Mass/Vol] 9.4 mg/dL Normal 8.5-10.1 [facility] Comment on above: Performed By: #### B MP #### [facility] [address] [address] [address] Kaylene Montyoa Chloride [Moles/Vol] 104 mmol/L Normal 98-107 [facility] Comment on above: Performed By: #### B MP #### [facility] [address] [address] [address] Kaylene Montoya CO2 [Moles/Vol] 31.7 mmol/L Normal 21.0-32.0 [facility] Comment on above: Performed By: #### B MP #### [facility] [address] [address] [address] Kaylene Montoya Creatinine [Mass/Vol] 1.14 mg/dL Normal 0.70-1.30 [facility] Comment on above: Performed By: #### B MP #### [facility] [address] [place] [address] Dr. Kaylene Montoya EGFR-AF ENGLISH >60 Normal >=60 [facility] Comment on above: Performed By: #### B MP #### [facility] [address] [place] [address] Dr. Kaylene Montoya EGFR-NON AF ENGLISH >60 Normal >=60 [facility] Comment on above: Performed By: #### B MP #### [facility] [address] [place] [address] Dr. Kaylene Montoya Glucose [Mass/Vol] 100 mg/dL Normal 74-106 [facility] Comment on above: Performed By: #### B MP #### [facility] [address] [place] [address] Dr. Kaylene Montoya Potassium [Moles/Vol] 4.2 mmol/L Normal 3.5-5.1 [facility] Comment on above: Performed By: #### B MP #### [facility] [address] [place] [address] Dr. Kaylene Montoya Sodium [Moles/Vol] 142 mmol/L Normal 136-145 [facility] Comment on above: Performed By: #### B MP #### [facility] [address] [place] [address] Dr. Kaylene Montoya Urea nitrogen [Mass/Vol] 42.0 mg/dL Critically high 7.0-18.0 [facility] Comment on above: Performed By: #### B MP #### [facility] [address] [place] [address] Dr. Kaylene Montoya Urea nitrogen/Creatinine [Mass ratio] 36.8 mg/mg Normal [facility] Comment on above: Performed By: #### B MP #### [facility] [address] [place] [address] Dr. Kaylene Montoya BNPon 11-28-2022 Natriuretic peptide B (Bld) [Mass/Vol] 2997.0 pg/mL Critically high <=1,800.0 [facility] Comment on above: Performed By: #### P TT, PT #### [facility] [address] [place] [address] Dr. Kaylene Montoya PROF CHEM 8 (BAS METB)on Anion gap [Moles/Vol] 5.6 mmol/L Normal [facility] Comment on above: Performed By: #### P TT, PT #### [facility] [address] [place] [address] Dr. Kaylene Montoya Calcium [Mass/Vol] 9.8 mg/dL Normal 8.5-10.1 [facility] Comment on above: Performed By: #### P TT, PT #### [facility] [address] [place] [address] Dr. Kaylene Montoya Chloride [Moles/Vol] 101 mmol/L Normal 98-107 [facility] Comment on above: Performed By: #### P TT, PT #### [facility] [address] [place] [address] Dr. Kaylene Montoya CO2 [Moles/Vol] 36.3 mmol/L Critically high 21.0-32.0 [facility] Comment on above: Performed By: #### P TT, PT #### [facility] [address] [place] [address] Dr. Kaylene Montoya Creatinine [Mass/Vol] 1.03 mg/dL Normal 0.70-1.30 [facility] Comment on above: Performed By: #### P TT, PT #### [facility] [address] [place] [address] Dr. Kaylene Montoya EGFR-AF ENGLISH >60 Normal >=60 [facility] Comment on above: Performed By: #### P TT, PT #### [facility] [address] [place] [address] Dr. Kaylene Montoya EGFR-NON AF ENGLISH >60 Normal >=60 [facility] Comment on above: Performed By: #### P TT, PT #### [facility] [address] [place] [address] Dr. Kaylene Montoya Glucose [Mass/Vol] 99 mg/dL Normal 74-106 [facility] Comment on above: Performed By: #### P TT, PT #### [facility] [address] [address] [address] Kaylene Montoya Potassium [Moles/Vol] 3.9 mmol/L Normal 3.5-5.1 [facility] Comment on above: Performed By: #### P TT, PT #### [facility] [address] [address] [address] Kaylene Montoya Sodium [Moles/Vol] 139 mmol/L Normal 136-145 [facility] Comment on above: Performed By: #### P TT, PT #### [facility] [address] [address] [address] Kaylene Montoya Urea nitrogen [Mass/Vol] 34.0 mg/dL Critically high 7.0-18.0 [facility] Comment on above: Performed By: #### P TT, PT #### [facility] [address] [address] [address] Kaylene Montoya Urea nitrogen/Creatinine [Mass ratio] 33.0 mg/mg Normal [facility] Comment on above: Performed By: #### P TT, PT #### [facility] [address] [address] [address] Kaylene Montoya Tobacco Screening.on 023 Adult depression screening assessment No [facility] [employer] DO Work Phone: Fall risk assessment b) One or more fall s in the last year [facility] [address]y [address] DO Work Phone: Tobacco use status CPHS b) No [facility] [address] DO Work Phone: BNPon 11-24-2022 Natriuretic peptide B (Bld) [Mass/Vol] 3182.0 pg/mL Critically high <=1,800.0 [facility] Comment on above: Performed By: #### F T4 #### [facility] [address] [place] [address] Dr. Kaylene Montoya CARDIAC CRISTIAN ADMITon 023 CK [Catalytic activity/Vol] 99 U/L Normal 39-308 [facility] Comment on above: Performed By: #### F T4 #### [facility] [address] [place] [address] Dr. Kaylene Montoya CK.MB [Mass/Vol] 3.52 ng/mL Normal <=3.60 [facility] Comment on above: Performed By: #### F T4 #### [facility] [address] [place] [address] Dr. Kaylene Montoya HSTROP 13.4 pg/mL Normal 4.0-76.1 [facility] Comment on above: Result Comment: CUT- OFF POINTS HAVE BEEN ESTABLISHED BASED ON THE FOURTH UNIVERSAL DEFINITIONS OF MYOCARDIAL INFARCTION. THE UPPER REFERENCE LIMIT (URL) OF TROPONIN, DEFINED THE 99TH PERCENTILE OF cTnI DISTRIBUTION IN A REFERENCE POPULATION, HAS BEEN CONFIRMED THE DECISION THRESHOLD FOR [place] DIAGNOSIS. Performed By: #### F T4 #### [facility] [address] [place] [address] Dr. Kaylene Montoya LEOPOLDO 83 ng/mL Normal 16-96 [facility] Comment on above: Performed By: #### F T4 #### [facility] [address] [place] [address] Dr. Kaylene Montoya CBC AUTO DIFFon 11-24-2022 BASO # 0.0 103/ul Normal 0.0-0.1 [facility] Comment on above: Performed By: #### B MP #### [facility] [address] [place] [address] Dr. Kaylene Montoya Basophils/100 WBC (Bld) 0.4 % Normal 0.2-2.0 [facility] Comment on above: Performed By: #### B MP #### [facility] [address] [place] [address] Dr. Kaylene Montoya EO # 0.1 103/ul Normal 0.0-0.7 [facility] Comment on above: Performed By: #### B MP #### [facility] [address] [place] [address] Dr. Kaylene Montoya Eosinophils/100 WBC (Bld) 1.4 % Normal 0.9-7.0 [facility] Comment on above: Performed By: #### B MP #### [facility] [address] [place] [address] Dr. Kaylene Montoya Erythrocyte distribution width (RBC) [Ratio] 15.8 % Critically high 11.0-15.0 [facility] Comment on above: Performed By: #### B MP #### [facility] [address] [place] [address] Dr. Kaylene Montoya Hematocrit (Bld) [Volume fraction] 40.1 % Critically low 42.0-54.0 [facility] Comment on above: Performed By: #### B MP #### [facility] [address] [place] [address] Dr. Kaylene Montoya Hemoglobin (Bld) [Mass/Vol] 13.0 g/dL Critically low 14.0-18.0 [facility] Comment on above: Performed By: #### B MP #### [facility] [address] [place] [address] Dr. Kaylene Montoya IG # 0.04 10e3/ul Critically high 0.00-0.03 [facility] Comment on above: Performed By: #### B MP #### [facility] [address] [place] [address] Dr. Kaylene Montoya IG % 0.6 % Critically high 0.0-0.5 [facility] Comment on above: Performed By: #### B MP #### [facility] [address] [place] [address] Dr. Kaylene Montoya LYMPH # 1.1 103/ul Critically low 1.2-3.8 [facility] Comment on above: Performed By: #### B MP #### [facility] [address] [place] [address] Dr. Kaylene Montoya Lymphocytes/100 WBC (Bld) 15.5 % Critically low 20.5-60.0 [facility] Comment on above: Performed By: #### B MP #### [facility] [address] [place] [address] Dr. Kaylene Montoya MANUAL DIFF REQ NO Normal [facility] Comment on above: Performed By: #### B MP #### [facility] [address] [place] [address] Dr. Kaylene Montoya MCH (RBC) [Entitic mass] 29.7 pg Normal 25.9-34.0 [facility] Comment on above: Performed By: #### B MP #### [facility] [address] [place] [address] Dr. Kaylene Montoya MCHC (RBC) [Mass/Vol] 32.4 g/dL Normal 29.9-35.2 [facility] Comment on above: Performed By: #### B MP #### [facility] [address] [place] [address] Dr. Kaylene Montoya MCV (RBC) [Entitic vol] 91.6 fL Normal 80.0-94.0 [facility] Comment on above: Performed By: #### B MP #### [facility] [address] [place] [address] Dr. Kaylene Montoya MONO # 0.7 103/ul Normal 0.3-0.8 [facility] Comment on above: Performed By: #### B MP #### [facility] [address] [place] [address] Dr. Kaylene Montoya Monocytes/100 WBC (Bld) 10.4 % Normal 1.7-12.0 [facility] Comment on above: Performed By: #### B MP #### [facility] [address] [place] [address] Dr. Kaylene Montoya NEUT # 5.1 103/ul Normal 1.4-6.5 [facility] Comment on above: Performed By: #### B MP #### [facility] [address] [place] [address] Dr. Kaylene Montoya Neutrophils/100 WBC (Bld) 71.7 % Normal 43.0-75.0 [facility] Comment on above: Performed By: #### B MP #### [facility] [address] [place] [address] Dr. Kaylene Montoya Platelet mean volume (Bld) [Entitic vol] 10.4 fL Normal 9.5-13.5 [facility] Comment on above: Performed By: #### B MP #### [facility] [address] [place] [address] Dr. Kaylene Montoya PLT 155 103/ul Normal 150-450 [facility] Comment on above: Performed By: #### B MP #### [facility] [address] [place] [address] Dr. Kaylene Montoya RBC 4.38 106/ul Critically low 4.70-6.10 [facility] Comment on above: Performed By: #### B MP #### [facility] [address] [place] [address] Dr. Kaylene Montoya WBC 7.1 103/ul Normal 4.0-11.0 [facility] Comment on above: Performed By: #### B MP #### [facility] [address] [place] [address] Dr. Kaylene Montoya ER URINE PROFILEon 3 Bilirubin Ql (U) Negative Normal NEGATIVE [facility] Comment on above: Performed By: #### L ACT #### [facility] [address] [place] [address] Dr. Kaylene Montoya Clarity (U) CLEAR Normal CLEAR [facility] Comment on above: Performed By: #### L ACT #### [facility] [address] [place] [address] Dr. Kaylene Montoya Color (U) YELLOW Normal YELLOW [facility] Comment on above: Performed By: #### L ACT #### [facility] [address] [place] [address] Dr. Kaylene Montoya ERUAHD A micrscopic examina tion will be performed if indicated. Normal [facility] Comment on above: Performed By: #### L ACT #### [facility] [address] [place] [address] Dr. Kaylene Montoya Glucose Ql (U) Negative Normal NEGATIVE [facility] Comment on above: Performed By: #### L ACT #### [facility] [address] [place] [address] Dr. Kaylene Montoya Hemoglobin Ql (U) LARGE Abnormal NEGATIVE [facility] Comment on above: Performed By: #### L ACT #### [facility] [address] [place] [address] Dr. Kaylene Montoya Ketones Ql (U) TRACE Abnormal NEGATIVE [facility] Comment on above: Performed By: #### L ACT #### [facility] [address] [place] [address] Dr. Kaylene Montoya LEUKOCYTES TRACE Abnormal NEGATIVE [facility] Comment on above: Performed By: #### L ACT #### [facility] [address] [place] [address] Dr. Kaylene Montoya Nitrite Ql (U) Negative Normal NEGATIVE [facility] Comment on above: Performed By: #### L ACT #### [facility] [address] [place] [address] Dr. Kaylene Montoya pH (U) 5.5 [pH] Normal 5-9 [facility] Comment on above: Performed By: #### L ACT #### [facility] [address] [place] [address] Dr. Kaylene Montoya Protein (U) [Mass/Vol] 30 mg/dL Abnormal NEGAT TOMAS/ TRACE [facility] Comment on above: Performed By: #### L ACT #### [facility] [address] [place] [address] Dr. Kaylene Montoya SPEC GRAVITY 1.025 Normal 1.005-<=1.[address] [place] [address] Comment on above: Performed By: #### L ACT #### [facility] [address] [place] [address] Dr. Kaylene Montoya UR MICRO IND INDICATED Normal [facility] Comment on above: Performed By: #### L ACT #### [facility] [address] [place] [address] Dr. Kaylene Montoya Urobilinogen Qn (U) 0.2 {Mary Kate'U}/dL Normal 0.2 - 1. 0 [facility] Comment on above: Performed By: #### L ACT #### [facility] [address] [place] [address] Dr. Kaylene Montoya PROF 14(COMP METB)on 023 Albumin [Mass/Vol] 3.7 g/dL Normal 3.4-5.0 [facility] Comment on above: Performed By: #### F T4 #### [facility] [address] [place] [address] Dr. Kaylene Montoya Albumin/Globulin [Mass ratio] 1.3 {ratio} Normal [facility] Comment on above: Performed By: #### F T4 #### [facility] [address] [place] [address] Dr. Kaylene Montoya ALP [Catalytic activity/Vol] 89 U/L Normal 46-116 [facility] Comment on above: Performed By: #### F T4 #### [facility] [address] [place] [address] Dr. Kaylene Montoya ALT [Catalytic activity/Vol] 17 U/L Normal 16-63 [facility] Comment on above: Performed By: #### F T4 #### [facility] [address] [place] [address] Dr. Kaylene Montoya Anion gap [Moles/Vol] 11.6 mmol/L Normal [facility] Comment on above: Performed By: #### F T4 #### [facility] [address] [place] [address] Dr. Kaylene Montoya AST [Catalytic activity/Vol] 23 U/L Normal 15-37 [facility] Comment on above: Performed By: #### F T4 #### [facility] [address] [place] [address] Dr. Kaylene Montoya Bilirubin [Mass/Vol] 0.7 mg/dL Normal 0.2-1.0 [facility] Comment on above: Performed By: #### F T4 #### [facility] [address] [place] [address] Dr. Kaylene Montoya Calcium [Mass/Vol] 9.2 mg/dL Normal 8.5-10.1 [facility] Comment on above: Performed By: #### F T4 #### [facility] [address] [place] [address] Dr. Kaylene Montoya Chloride [Moles/Vol] 104 mmol/L Normal 98-107 [facility] Comment on above: Performed By: #### F T4 #### [facility] [address] [place] [address] Dr. Kaylene Montoya CO2 [Moles/Vol] 29.2 mmol/L Normal 21.0-32.0 [facility] Comment on above: Performed By: #### F T4 #### [facility] [address] [place] [address] Dr. Kaylene Montoya Creatinine [Mass/Vol] 1.17 mg/dL Normal 0.70-1.30 [facility] Comment on above: Performed By: #### F T4 #### [facility] [address] [place] [address] Dr. Kaylene Montoya EGFR-AF ENGLISH >60 Normal >=60 [facility] Comment on above: Performed By: #### F T4 #### [facility] [address] [place] [address] Dr. Kaylene Montoya EGFR-NON AF ENGLISH 59 mL/min/1.73m2 Critically low >=60 [facility] Comment on above: Performed By: #### F T4 #### [facility] [address] [place] [address] Dr. Kaylene Montoya Globulin (S) [Mass/Vol] 2.9 g/dL Normal [facility] Comment on above: Performed By: #### F T4 #### [facility] [address] [place] [address] Dr. Kaylene Montoya Glucose [Mass/Vol] 88 mg/dL Normal 74-106 [facility] Comment on above: Performed By: #### F T4 #### [facility] [address] [place] [address] Dr. Kaylene Montoya Potassium [Moles/Vol] 4.8 mmol/L Normal 3.5-5.1 [facility] Comment on above: Performed By: #### F T4 #### [facility] [address] [place] [address] Dr. Kaylene Montoya Protein [Mass/Vol] 6.6 g/dL Normal 6.4-8.2 [facility] Comment on above: Performed By: #### F T4 #### [facility] [address] [place] [address] Dr. Kyalene Montoya Sodium [Moles/Vol] 140 mmol/L Normal 136-145 [facility] Comment on above: Performed By: #### F T4 #### [facility] [address] [place] [address] Dr. Kaylene Montoya Urea nitrogen [Mass/Vol] 25.0 mg/dL Critically high 7.0-18.0 [facility] Comment on above: Performed By: #### F T4 #### [facility] [address] [place] [address] Dr. Kaylene Montoya Urea nitrogen/Creatinine [Mass ratio] 21.4 mg/mg Normal [facility] Comment on above: Performed By: #### F T4 #### [facility] [address] [place] [address] Dr. Kaylene Montoya PROTIMEon 11-24-2022 INR Coag (PPP) [Relative time] 1.34 {INR} Normal [facility] Comment on above: Performed By: #### L ACT #### [facility] [address] [place] [address] Dr. Kaylene Montoya INR GUIDELINES SEE BELOW Normal [facility] Comment on above: Result Comment: JOSE RED INR: 2.0 - 3.0 CONDITIONS NOT LISTED BELOW 2.5 - 3.5 FOR PROSTHETIC HEART VALVE REPLACEMENT 2.5 - 3.5 RECURRENT THROMBOSIS Performed By: #### L ACT #### [facility] [address] [place] [address] Dr. Kaylene Montoya PT Coag (PPP) [Time] 14.0 s Critically high 9.0-11.6 [facility] Comment on above: Performed By: #### L ACT #### [facility] [address] [place] [address] Dr. Kaylene Montoya PTTon 11-24-2022 aPTT Coag (Bld) [Time] 31.8 s Normal 22.3-36.[address] [facility] Comment on above: Performed By: #### L ACT #### [facility] [address] [place] [address] Dr. Kaylene Montoya TSHon 11-24-2022 TSH 5.486 uIU/mL Critically high 0.358-3.740 [facility] Comment on above: Performed By: #### F T4 #### [facility] [address] [place] [address] Dr. Kaylene Montoya URINE MICROSCOPIC ONLYon BACTERIA NONE SEEN Normal NONE SEEN [facility] Comment on above: Performed By: #### L ACT #### [facility] [address] [place] [address] Dr. Kaylene Montoya Bacteria identified Cx Nom (U) NOT INDICATED Normal [facility] Comment on above: Performed By: #### L ACT #### [facility] [address] [place] [address] Dr. Kaylene Montoya CAST NONE SEEN Normal NONE SEEN [facility] Comment on above: Performed By: #### L ACT #### [facility] [address] [place] [address] Dr. Kaylene Montoya Crystals LM Nom (Urine sed) NONE SEEN Normal NONE SEEN [facility] Comment on above: Performed By: #### L ACT #### [facility] [address] [place] [address] Dr. Kaylene Montoya Epithelial cells LM Ql (Urine sed) RARE Normal NONE SEEN /RARE [facility] Comment on above: Performed By: #### L ACT #### [facility] [address] [place] [address] Dr. Kaylene Montoya MUCOUS NONE SEEN Normal NONE SEEN [facility] Comment on above: Performed By: #### L ACT #### [facility] [address] [place] [address] Dr. Kaylene Montoya RBC 20-50 Abnormal 0-2 [facility] Comment on above: Performed By: #### L ACT #### [facility] [address] [place] [address] Dr. Kaylene Montoya WBC 0-2 Abnormal NONE SEEN [facility] Comment on above: Performed By: #### L ACT #### [facility] [address] [place] [address] Dr. Kaylene Montoya US SCROTUM W VASCULAR [...] JEET POOLE Date: 2022-11-24 12:34 Normal [facility] XR CHEST 11-24-2022 XR CHEST 1 V EXAMINATION: XR [...] by: USHA FERMIN Date: 2022-11-24 11:29 [facility] Office Visit (NRESAV ) ----- MAGDALENO VALDERRAMA ([id number]) 1940 M Date Time Provider Department 10/20/22 4:00 PM EFREN CARBAJAL During your visit today, we recorded the following information about you: Pulse Blood pressure 82/minute 155/91 Efren Carbajal DO 10/20/2022 4:19 PM Signed [facility] - FOLLOW UP EVALUATION Efren Carbajal [address] [facility] [address] Amy Zuñiga MD [address] [facility] [address] Magdaleno Valderrama is a 82 year old [...] 5 mg by mouth twice daily. vit C/E/Zn/coppr/lutein/zeaxa n (PRESERVISION AREDS-2 ORAL) Take by mouth. carbidopa-levodopa [...] Left pathological reflexes: Kailash's absent. Coordination Right: Ngalst-lv-ggtg normal. Rapid alternating movement normal.Left: Atdwpr-hv-ypie normal. Rapid alternating movement normal. Gait Casual [...] marked bilatera (more content not included)... Normal [facility] SINGLE QUAD RT UPPERon SINGLE QUAD RT [...] by: USHA FERMIN Date: 2022-10-19 09:57 Normal [facility] Basophils Auto (Bld) [#/Vol] Ordered By: Jordan Gallegos on 09-27-2022 Basophils (Bld) [#/Vol] 0.0 10*3/uL 0.0-0.2 [facility] Basophils/100 WBC Auto (Bld) Ordered By: Jordan Gallegos on 09-27-2022 Basophils/100 WBC (Bld) 0.3 % . [facility] Calcium [Mass/volume] in Ser um or PlasmaOrdered By: Jordan Gallegos on 09-27-2022 Calcium [Mass/Vol] 8.3 mg/dL 8.2-10.2 [facility] Carbon dioxide, total [Moles /volume] in Serum or PlasmaOrdered By: Jordan Gallegos on 09-27-2022 CO2 [Moles/Vol] 27.0 mmol/L 22.0-30.0 [facility] Chloride [Moles/volume] in S siddharth or PlasmaOrdered By: Jordan Gallegos on 09-27-2022 Chloride [Moles/Vol] 101 mmol/L 95-114 [facility] Creatinine and Glomerular fi ltration rate.predicted panel (S/P/Bld)Ordered By: Jordan Galelgos on 09-27-2022 Creatinine [Mass/Vol] 0.89 mg/dL 0.64-1.27 [facility] Eosinophils Auto (Bld) [#/Vo l]Ordered By: Jordan Gallegos on 09-27-2022 Eosinophils (Bld) [#/Vol] 0.1 10*3/uL 0.0-0.45 [facility] Eosinophils/100 WBC Auto (Bl d)Ordered By: Jordan Gallegos on 09-27-2022 Eosinophils/100 WBC (Bld) 1.5 % . [facility] Erythrocyte distribution wid th Auto (RBC) [Ratio]Ordered By: Jordan Gallegos on 09-27-2022 Erythrocyte distribution width (RBC) [Ratio] 18.0 % 12.0-14.8 [facility] Estimated glomerular filtrat ion rate (GFR) non- AmericanOrdered By: Jordan Gallegos on 09-27-2022 GFR/1.73 sq M.predicted among non-blacks MDRD (S/P/Bld) [Vol rate/Area] > 60 mL/Min [facility] Glucose [Mass/volume] in Ser um or PlasmaOrdered By: Jordan Gallegos on 09-27-2022 Glucose [Mass/Vol] 89 mg/dL 70-100 [facility] Comment on above: ADA recommended refe rence rangeRandom Glucose Reference Range is dependent on time and content of last meal. Glucose of more than 200 mg/dL in a nonstressed, ambulatory subject supports the diagnosis of Diabetes Mellitus. Hematocrit Auto (Bld) [Volum e fraction]Ordered By: Jordan Gallegos on 09-27-2022 Hematocrit (Bld) [Volume fraction] 35.5 % 38.8-50.0 [facility] Hemoglobin [Mass/volume] in BloodOrdered By: Jordan Gallegos on 09-27-2022 Hemoglobin (Bld) [Mass/Vol] 11.7 g/dL 13.0-17.0 [facility] Laboratory - Chemistry and C hemistry - challengeOrdered By: Jordan Gallegos on 09-27-2022 Magnesium [Mass/Vol] 1.8 mg/dL 1.6-2.6 [facility] Leukocytes [#/volume] correc parag for nucleated erythrocytes in Blood by Automated counOrdered By: Jordan Gallegos on 09-27-2022 WBC corrected for nucl RBC Auto (Bld) [#/Vol] 7.8 10*3/uL 4.1-10.5 [facility] Lymphocytes Auto (Bld) [#/Vo l]Ordered By: Jordan Gallegos on 09-27-2022 Lymphocytes (Bld) [#/Vol] 0.9 10*3/uL 1.00-4.8 [facility] Lymphocytes/100 WBC Auto (Bl d)Ordered By: Jordan Gallegos on 09-27-2022 Lymphocytes/100 WBC (Bld) 11.6 % . [facility] MCH Auto (RBC) [Entitic mass ]Ordered By: Jordan Gallegos on 09-27-2022 MCH (RBC) [Entitic mass] 29.7 pg 27.5-35.2 [facility] MCHC Auto (RBC) [Mass/Vol]Or dered By: Jordan Gallegos on 09-27-2022 MCHC (RBC) [Mass/Vol] 32.8 g/dL 32.5-35.6 [facility] MCV Auto (RBC) [Entitic vol] Ordered By: Jordan Gallegos on 09-27-2022 MCV (RBC) [Entitic vol] 90.5 fL 83.5-101 [facility] Monocytes Auto (Bld) [#/Vol] Ordered By: Jordan Gallegos on 09-27-2022 Monocytes (Bld) [#/Vol] 0.8 10*3/uL 0.0-0.8 [facility] Monocytes/100 WBC Auto (Bld) Ordered By: Jordan Gallegos on 09-27-2022 Monocytes/100 WBC (Bld) 10.3 % . [facility] Neutrophils Auto (Bld) [#/Vo l]Ordered By: Jordan Gallegos on 09-27-2022 Neutrophils (Bld) [#/Vol] 6.0 10*3/uL 1.8-7.7 [facility] Neutrophils/100 WBC Auto (Bl d)Ordered By: Jordan Gallegos on 09-27-2022 Neutrophils/100 WBC (Bld) 76.3 % . [facility] No Panel InformationOrdered By: Jordan Gallegos on 09-27-2022 Estimated GFR () > 60 mL/Min [facility] Comment on above: GFR estimated refere nce range: According to KDOQI guidelines, <60 ml/min/1.73m2 is sufficient to diagnose a patient with chronic kidney disease. Pharmacy Creatinine Clearance (Chem 59.78 [facility] Nucleated erythrocytes [Pres ence] in Blood by Automated countOrdered By: Jordan Gallegos on 09-27-2022 Nucleated RBC Auto Ql (Bld) 0.0 /100{WBC} 0-0.5 [facility] Platelet mean volume Auto (B ld) [Entitic vol]Ordered By: Jordan Gallegos on 09-27-2022 Platelet mean volume (Bld) [Entitic vol] 8.3 fL 6.6-10.1 [facility] Platelets Auto (Bld) [#/Vol] Ordered By: Jordan Gallegos on 09-27-2022 Platelets (Bld) [#/Vol] 122 10*3/uL 150-450 [facility] Potassium [Moles/volume] in Serum or PlasmaOrdered By: Jordan Gallegos on 09-27-2022 Potassium [Moles/Vol] 3.9 mmol/L 3.5-5.1 [facility] RBC Auto (Bld) [#/Vol]Ordere d By: Jordan Gallegos on 09-27-2022 RBC (Bld) [#/Vol] 3.92 10*6/uL 3.90-5.60 [facility] Serum or plasma anion gap de terminationOrdered By: Jordan Gallegos on 09-27-2022 Anion gap [Moles/Vol] 9.9 mmol/L 6.0-15.0 [facility] Sodium [Moles/volume] in Ser um or PlasmaOrdered By: Jordan Gallegos on 09-27-2022 Sodium [Moles/Vol] 134 mmol/L 136-146 [facility] Urea nitrogen [Mass/volume] in Serum or PlasmaOrdered By: Jordan Gallegos on 09-27-2022 Urea nitrogen [Mass/Vol] 18 mg/dL 9-23 [facility] WBC Auto (Bld) [#/Vol]Ordere d By: Jordan Gallegos on 09-27-2022 WBC (Bld) [#/Vol] 7.8 10*3/uL 4.1-10.5 [facility] Activated partial thrombopla stin time (aPTT) in platelet poor plasma by coagulation aOrdered By: Roel Mireles on 09-26-2022 aPTT Coag (PPP) [Time] 34.0 s 25.1-36.5 [facility] Albumin [Mass/volume] in Bod y fluidOrdered By: Jordan Gallegos on 09-26-2022 Albumin (Body fld) [Mass/Vol] 3.3 g/dL 3.2-5.5 [facility] Alkaline phosphatase [Enzyma tic activity/volume] in Serum or PlasmaOrdered By: Jordan Gallegos on 09-26-2022 ALP [Catalytic activity/Vol] 74 U/L 32-92 [facility] Aspartate aminotransferase [ Enzymatic activity/volume] in Serum or PlasmaOrdered By: Jordan Gallegos on 09-26-2022 AST [Catalytic activity/Vol] 25 U/L 10-42 [facility] Bilirubin.total [Mass/volume ] in Serum or PlasmaOrdered By: Jordan Gallegos on 09-26-2022 Bilirubin [Mass/Vol] 1.0 mg/dL 0.3-1.2 [facility] Globulin Calc (S) [Mass/Vol] Ordered By: Jordan Gallegos on 09-26-2022 Globulin (S) [Mass/Vol] 2.1 g/dL [facility] - CoagulationOrde red By: Roel Mireles on 09-26-2022 PT Coag (PPP) [Time] 15.6 s 9.0-12.9 [facility] Platelet poor plasma interna tional normalized ratio (INR) by coagulation assay (relatOrdered By: Roel Mireles on 09-26-2022 INR Coag (PPP) [Relative time] 1.4 {INR} [facility] Comment on above: INR Therapeutic Rang e [...] on 09-26-2022 Protein [Mass/Vol] 5.4 g/dL 6.1-7.9 [facility] Serum or plasma alanine li otransferase measurement without P-5'-P (enzymatic activiOrdered By: Jordan Gallegos on 09-26-2022 ALT No additional P-5'-P [Catalytic activity/Vol] 10 U/L 10-60 [facility] Serum or plasma albumin/glob ulin mass ratioOrdered By: Jordan Gallegos on 09-26-2022 Albumin/Globulin [Mass ratio] 1.6 {ratio} [facility] CARDIAC CRISTIAN ADMITon 023 CK [Catalytic activity/Vol] 291 U/L Normal 39-308 [facility] Comment on above: Performed By: #### L ACT #### [facility] [address] [address] [address] Kaylene Montoya CK.MB [Mass/Vol] 9.66 ng/mL Critically high <=3.60 [facility] Comment on above: Performed By: #### L ACT #### [facility] [address] [address] [address] Kaylene Montoya HSTROP 25.4 pg/mL Normal 4.0-76.1 [facility] Comment on above: Result Comment: CUT- OFF POINTS HAVE BEEN ESTABLISHED BASED ON THE FOURTH UNIVERSAL DEFINITIONS OF MYOCARDIAL INFARCTION. THE UPPER REFERENCE LIMIT (URL) OF TROPONIN, DEFINED THE 99TH PERCENTILE OF cTnI DISTRIBUTION IN A REFERENCE POPULATION, HAS BEEN CONFIRMED THE DECISION THRESHOLD FOR [place] DIAGNOSIS. Performed By: #### L ACT #### [facility] [address] [place] [address] Dr. Kaylene Montoya LEOPOLDO 357 ng/mL Critically high 16-96 [facility] Comment on above: Performed By: #### L ACT #### [facility] [address] [address] [address] Kaylene Montoya CBC AUTO DIFFon 09-25-2022 BASO # 0.0 103/ul Normal 0.0-0.1 [facility] Comment on above: Performed By: #### P TT, PT #### [facility] [address] [address] [address] Kaylene Montoya Basophils/100 WBC (Bld) 0.4 % Normal 0.2-2.0 [facility] Comment on above: Performed By: #### P TT, PT #### [facility] [address] [place] [address] Dr. Kaylene Montoya EO # 0.1 103/ul Normal 0.0-0.7 [facility] Comment on above: Performed By: #### P TT, PT #### [facility] [address] [place] [address] Dr. Kaylene Montoya Eosinophils/100 WBC (Bld) 1.1 % Normal 0.9-7.0 [facility] Comment on above: Performed By: #### P TT, PT #### [facility] [address] [place] [address] Dr. Kaylene Montoya Erythrocyte distribution width (RBC) [Ratio] 18.3 % Critically high 11.0-15.0 [facility] Comment on above: Performed By: #### P TT, PT #### [facility] [address] [place] [address] Dr. Kaylene Montoya Hematocrit (Bld) [Volume fraction] 35.4 % Critically low 42.0-54.0 [facility] Comment on above: Performed By: #### P TT, PT #### [facility] [address] [place] [address] Dr. Kaylene Montoya Hemoglobin (Bld) [Mass/Vol] 11.5 g/dL Critically low 14.0-18.0 [facility] Comment on above: Performed By: #### P TT, PT #### [facility] [address] [place] [address] Dr. Kaylene Montoya IG # 0.04 10e3/ul Critically high 0.00-0.03 [facility] Comment on above: Performed By: #### P TT, PT #### [facility] [address] [place] [address] Dr. Kaylene Montoya IG % 0.5 % Normal 0.0-0.5 [facility] Comment on above: Performed By: #### P TT, PT #### [facility] [address] [place] [address] Dr. Kaylene Montoya LYMPH # 0.9 103/ul Critically low 1.2-3.8 [facility] Comment on above: Performed By: #### P TT, PT #### [facility] [address] [place] [address] Dr. Kaylene Montoya Lymphocytes/100 WBC (Bld) 11.5 % Critically low 20.5-60.0 [facility] Comment on above: Performed By: #### P TT, PT #### [facility] [address] [place] [address] Dr. Kaylene Montoya MANUAL DIFF REQ NO Normal [facility] Comment on above: Performed By: #### P TT, PT #### [facility] [address] [place] [address] Dr. Kaylene Montoya MCH (RBC) [Entitic mass] 29.4 pg Normal 25.9-34.0 [facility] Comment on above: Performed By: #### P TT, PT #### [facility] [address] [place] [address] Dr. Kaylene Montoya MCHC (RBC) [Mass/Vol] 32.5 g/dL Normal 29.9-35.2 [facility] Comment on above: Performed By: #### P TT, PT #### [facility] [address] [place] [address] Dr. Kaylene Montoya MCV (RBC) [Entitic vol] 90.5 fL Normal 80.0-94.0 [facility] Comment on above: Performed By: #### P TT, PT #### [facility] [address] [place] [address] Dr. Kaylene Montoya MONO # 1.0 103/ul Critically high 0.3-0.8 [facility] Comment on above: Performed By: #### P TT, PT #### [facility] [address] [place] [address] Dr. Kaylene Montoya Monocytes/100 WBC (Bld) 12.3 % Critically high 1.7-12.0 [facility] Comment on above: Performed By: #### P TT, PT #### [facility] [address] [place] [address] Dr. Kaylene Montoya NEUT # 6.0 103/ul Normal 1.4-6.5 [facility] Comment on above: Performed By: #### P TT, PT #### [facility] [address] [address] [address] Kaylene Montoya Neutrophils/100 WBC (Bld) 74.2 % Normal 43.0-75.0 [facility] Comment on above: Performed By: #### P TT, PT #### [facility] [address] [address] [address] Kaylene Montoya Platelet mean volume (Bld) [Entitic vol] 10.3 fL Normal 9.5-13.5 [facility] Comment on above: Performed By: #### P TT, PT #### [facility] [address] [address] [address] Kaylene Montoya PLT 132 103/ul Critically low 150-450 [facility] Comment on above: Performed By: #### P TT, PT #### [facility] [address] [place] [address] Dr. Kaylene Montoya RBC 3.91 106/ul Critically low 4.70-6.10 [facility] Comment on above: Performed By: #### P TT, PT #### [facility] [address] [address] [address] Kaylene Montoya WBC 8.0 103/ul Normal 4.0-11.0 [facility] Comment on above: Performed By: #### P TT, PT #### [facility] [address] [place] [address] Dr. Kaylene Montoya Covid-19 PCR ([facility])on 09-01 SARS-CoV-2 (COVID-19) RNA RENU+probe Ql (Unsp spec) Not detected Normal NOT DETECTED [facility] Comment on above: Result Comment: When [...] for this test is supported by the [place] of Health and Human Service's declaration that [...] used). Performed By: #### C VDTBH #### [facility] [address] [place] [address] Dr. Kaylene Montoya FREE T3on 09-25-2022 FREE T3 1.36 pg/mlL Critically low 2.18-3.98 [facility] Comment on above: Performed By: #### L ACT #### [facility] [address] [place] [address] Dr. Kaylene Montoya T4on 09-25-2022 T4 [Mass/Vol] 5.50 ug/dL Normal 4.50-12.10 [facility] Comment on above: Performed By: #### T 4 #### [facility] [address] [place] [address] Dr. Kaylene Montoya TSHon 09-25-2022 TSH 3.804 uIU/mL Critically high 0.358-3.740 [facility] Comment on above: Performed By: #### P TT, PT #### [facility] [address] [place] [address] Dr. Kaylene Montoya CBC AUTO DIFFon 09-24-2022 BASO # 0.0 103/ul Normal 0.0-0.1 [facility] Comment on above: Performed By: #### C BC #### [facility] [address] [place] [address] Dr. Kaylene Montoya Basophils/100 WBC (Bld) 0.4 % Normal 0.2-2.0 [facility] Comment on above: Performed By: #### C BC #### [facility] [address] [place] [address] Dr. Kaylene Montoya EO # 0.1 103/ul Normal 0.0-0.7 [facility] Comment on above: Performed By: #### C BC #### [facility] [address] [place] [address] Dr. Kaylene Montoya Eosinophils/100 WBC (Bld) 1.7 % Normal 0.9-7.0 [facility] Comment on above: Performed By: #### C BC #### [facility] [address] [place] [address] Dr. Kaylene Montoya Erythrocyte distribution width (RBC) [Ratio] 18.2 % Critically high 11.0-15.0 [facility] Comment on above: Performed By: #### C BC #### [facility] [address] [place] [address] Dr. Kaylene Montoya Hematocrit (Bld) [Volume fraction] 35.8 % Critically low 42.0-54.0 [facility] Comment on above: Performed By: #### C BC #### [facility] [address] [place] [address] Dr. Kaylene Montoya Hemoglobin (Bld) [Mass/Vol] 11.7 g/dL Critically low 14.0-18.0 [facility] Comment on above: Performed By: #### C BC #### [facility] [address] [place] [address] Dr. Kaylene Montoya IG # 0.04 10e3/ul Critically high 0.00-0.03 [facility] Comment on above: Performed By: #### C BC #### [facility] [address] [place] [address] Dr. Kaylene Montoya IG % 0.6 % Critically high 0.0-0.5 [facility] Comment on above: Performed By: #### C BC #### [facility] [address] [place] [address] Dr. Kaylene Montoya LYMPH # 1.2 103/ul Normal 1.2-3.8 [facility] Comment on above: Performed By: #### C BC #### [facility] [address] [place] [address] Dr. Kaylene Montoya Lymphocytes/100 WBC (Bld) 17.8 % Critically low 20.5-60.0 [facility] Comment on above: Performed By: #### C BC #### [facility] [address] [place] [address] Dr. Kaylene Montoya MANUAL DIFF REQ NO Normal [facility] Comment on above: Performed By: #### C BC #### [facility] [address] [place] [address] Dr. Kaylene Montoya MCH (RBC) [Entitic mass] 29.5 pg Normal 25.9-34.0 [facility] Comment on above: Performed By: #### C BC #### [facility] [address] [place] [address] Dr. Kaylene Montoya MCHC (RBC) [Mass/Vol] 32.7 g/dL Normal 29.9-35.2 [facility] Comment on above: Performed By: #### C BC #### [facility] [address] [place] [address] Dr. Kaylene Montoya MCV (RBC) [Entitic vol] 90.4 fL Normal 80.0-94.0 [facility] Comment on above: Performed By: #### C BC #### [facility] [address] [place] [address] Dr. Kaylene Montoya MONO # 0.7 103/ul Normal 0.3-0.8 [facility] Comment on above: Performed By: #### C BC #### [facility] [address] [place] [address] Dr. Kaylene Montoya Monocytes/100 WBC (Bld) 10.5 % Normal 1.7-12.0 [facility] Comment on above: Performed By: #### C BC #### [facility] [address] [place] [address] Dr. Kaylene Montoya NEUT # 4.8 103/ul Normal 1.4-6.5 [facility] Comment on above: Performed By: #### C BC #### [facility] [address] [place] [address] Dr. Kaylene Montoya Neutrophils/100 WBC (Bld) 69.0 % Normal 43.0-75.0 [facility] Comment on above: Performed By: #### C BC #### [facility] [address] [address] [address] Kaylene Montoya Platelet mean volume (Bld) [Entitic vol] 10.5 fL Normal 9.5-13.5 [facility] Comment on above: Performed By: #### C BC #### [facility] Laboratory [address] [address] [address] Kaylene Montoya PLT 130 103/ul Critically low 150-450 [facility] Comment on above: Performed By: #### C BC #### [facility] [address] [address] [address] Kaylene Montoya RBC 3.96 106/ul Critically low 4.70-6.10 [facility] Comment on above: Performed By: #### C BC #### [facility] [address] [address] [address] Kaylene Montoya WBC 6.9 103/ul Normal 4.0-11.0 [facility] Comment on above: Performed By: #### C BC #### [facility] [address] [place] [address] CSPINE WO CONon 3 CT CSPINE WO CON EXAMINATION: CT CSPI [...] MARLENE CASEY Date: 2022-09-24 18:57 Normal [facility] CT HEAD WO CONon 09-24-2022 CT [...] MARCIA PIERRE Date: 2022-09-24 18:50 Normal [facility] ER URINE PROFILEon 3 Bilirubin Ql (U) Negative Normal NEGATIVE [facility] Comment on above: Performed By: #### P TT, PT #### [facility] [address] [place] [address] Dr. Kaylene Montoya Clarity (U) CLEAR Normal CLEAR [facility] Comment on above: Performed By: #### P TT, PT #### [facility] [address] [place] [address] Dr. Kaylene Montoya Color (U) LT. YELLOW Normal YELLOW [facility] Comment on above: Performed By: #### P TT, PT #### [facility] [address] [place] [address] Dr. Kaylene Montoya ERUAHD A micrscopic examina tion will be performed if indicated. Normal [facility] Comment on above: Performed By: #### P TT, PT #### [facility] [address] [place] [address] Dr. Kaylene Montoya Glucose Ql (U) Negative Normal NEGATIVE [facility] Comment on above: Performed By: #### P TT, PT #### [facility] [address] [place] [address] Dr. Kaylene Montoya Hemoglobin Ql (U) Negative Normal NEGATIVE [facility] Comment on above: Performed By: #### P TT, PT #### [facility] [address] [place] [address] Dr. Kaylene Montoya Ketones Ql (U) TRACE Abnormal NEGATIVE [facility] Comment on above: Performed By: #### P TT, PT #### [facility] [address] [place] [address] Dr. Kaylene Montoya LEUKOCYTES Negative Normal NEGATIVE [facility] Comment on above: Performed By: #### P TT, PT #### [facility] [address] [place] [address] Dr. Kaylene Montoya Nitrite Ql (U) Negative Normal NEGATIVE [facility] Comment on above: Performed By: #### P TT, PT #### [facility] [address] [place] [address] Dr. Kaylene Montoya pH (U) 6.0 [pH] Normal 5-9 [facility] Comment on above: Performed By: #### P TT, PT #### [facility] [address] [place] [address] Dr. Kaylene Montoya Protein (U) [Mass/Vol] 30 mg/dL Abnormal NEGAT TOMAS/ TRACE [facility] Comment on above: Performed By: #### P TT, PT #### [facility] [address] [place] [address] Dr. Kaylene Montoya SPEC GRAVITY 1.020 Normal 1.005-<=1.02 5 [facility] Comment on above: Performed By: #### P TT, PT #### [facility] [address] [place] [address] Dr. Kaylene Montoya UR MICRO IND NOT INDICATED Normal [facility] Comment on above: Performed By: #### P TT, PT #### [facility] [address] [place] [address] Dr. Kaylene Montoya Urobilinogen Qn (U) 0.2 {Mary Kate'U}/dL Normal 0.2 - 1. 0 [facility] Comment on above: Performed By: #### P TT, PT #### [facility] [address] [place] [address] Dr. Kaylene Montoya PROF 14(COMP METB)on 023 Albumin [Mass/Vol] 3.2 g/dL Critically low 3.4-5.[address] [facility] Comment on above: Performed By: #### C MP, HSTROPN #### [facility] [address] [place] [address] Dr. Kaylene Montoya Albumin/Globulin [Mass ratio] 1.1 {ratio} Normal [facility] Comment on above: Performed By: #### C MP, HSTROPN #### [facility] [address] [place] [address] Dr. Kaylene Montoay ALP [Catalytic activity/Vol] 109 U/L Normal 46-116 [facility] Comment on above: Performed By: #### C MP, HSTROPN #### [facility] [address] [place] [address] Dr. Kaylene Montoya ALT [Catalytic activity/Vol] 21 U/L Normal 16-63 [facility] Comment on above: Performed By: #### C MP, HSTROPN #### [facility] [address] [place] [address] Dr. Kaylene Montoya Anion gap [Moles/Vol] 8.4 mmol/L Normal [facility] Comment on above: Performed By: #### C MP, HSTROPN #### [facility] [address] [place] [address] Dr. Kaylene Montoya AST [Catalytic activity/Vol] 40 U/L Critically high 15-37 [facility] Comment on above: Performed By: #### C MP, HSTROPN #### [facility] [address] [place] [address] Dr. Kaylene Montoya Bilirubin [Mass/Vol] 0.7 mg/dL Normal 0.2-1.0 [facility] Comment on above: Performed By: #### C MP, HSTROPN #### [facility] [address] [place] [address] Dr. Kaylene Montoya Calcium [Mass/Vol] 8.7 mg/dL Normal 8.5-10.1 [facility] Comment on above: Performed By: #### C JAZMINE, HSTROPN #### [facility] [address] [address] [address] Kaylene Montoya Chloride [Moles/Vol] 104 mmol/L Normal 98-107 [facility] Comment on above: Performed By: #### C JAZMINE, HSTROPN #### [facility] [address] [address] [address] Kaylene Montoya CO2 [Moles/Vol] 28.6 mmol/L Normal 21.0-32.0 [facility] Comment on above: Performed By: #### C JAZMINE, HSTROPN #### [facility] [address] [place] [address] Dr. Kaylene Montoya Creatinine [Mass/Vol] 1.17 mg/dL Normal 0.70-1.30 [facility] Comment on above: Performed By: #### C JAZMINE, HSTROPN #### [facility] [address] [place] [address] Dr. Kaylene Montoya EGFR-AF ENGLISH >60 Normal >=60 [facility] Comment on above: Performed By: #### C JAZMINE, HSTROPN #### [facility] [address] [place] [address] Dr. Kaylene Montoya EGFR-NON AF ENGLISH 59 mL/min/1.73m2 Critically low >=60 [facility] Comment on above: Performed By: #### C JAZMINE, HSTROPN #### [facility] [address] [place] [address] Dr. Kaylene Montoya Globulin (S) [Mass/Vol] 2.8 g/dL Normal [facility] Comment on above: Performed By: #### C JAZMINE, HSTROPN #### [facility] [address] [place] [address] Dr. Kaylene Montoya Glucose [Mass/Vol] 105 mg/dL Normal 74-106 [facility] Comment on above: Performed By: #### C JAZMINE, HSTROPN #### [facility] [address] [address] [address] Kaylene Montoya Potassium [Moles/Vol] 4.0 mmol/L Normal 3.5-5.1 [facility] Comment on above: Performed By: #### C MP, HSTROPN #### [facility] [address] [address] [address] Kaylene Montoya Protein [Mass/Vol] 6.0 g/dL Critically low 6.4-8.[address] [facility] Comment on above: Performed By: #### C MP, HSTROPN #### [facility] [address] [address] [address] Kaylene Montoya Sodium [Moles/Vol] 137 mmol/L Normal 136-145 [facility] Comment on above: Performed By: #### C MP, HSTROPN #### [facility] [address] [place] [address] Dr. Kaylene Montoya Urea nitrogen [Mass/Vol] 22.0 mg/dL Critically high 7.0-18.0 [facility] Comment on above: Performed By: #### C JAZMINE, HSTROPN #### [facility] [address] [address] [address] Kaylene Montoya Urea nitrogen/Creatinine [Mass ratio] 18.8 mg/mg Normal [facility] Comment on above: Performed By: #### C MP, HSTROPN #### [facility] [address] [place] [address] Dr. Kaylene Montoya TROPONIN, HIGH SENSITIVITYon 09-24-2022 HSTROP 18.6 pg/mL Normal 4.0-76.1 [facility] Comment on above: Result Comment: CUT- OFF POINTS HAVE BEEN ESTABLISHED BASED ON THE FOURTH UNIVERSAL DEFINITIONS OF MYOCARDIAL INFARCTION. THE UPPER REFERENCE LIMIT (URL) OF TROPONIN, DEFINED THE 99TH PERCENTILE OF cTnI DISTRIBUTION IN A REFERENCE POPULATION, HAS BEEN CONFIRMED THE DECISION THRESHOLD FOR [place] DIAGNOSIS. Performed By: #### C MP, HSTROPN #### [facility] [address] [place] [address] Dr. Kaylene Montoya XR CHEST 1 Von [...] MARLENE CASEY Date: 2022-09-24 18:57 Normal [facility] XR FEMUR RTon 09-24-2022 XR FEMUR RT [...] MARLENE CASEY Date: 2022-09-24 18:57 Normal [facility] CT ABD/PELV W CONon 09-15-19 CT [...] USHA FERMIN Date: 2022-09-15 13:39 Normal [facility] CBC AUTO DIFFon 09-05-2022 BASO # 0.0 103/ul Normal 0.0-0.1 [facility] Comment on above: Performed By: #### B MP #### [facility] [address] [address] [address] Kaylene Montoya Basophils/100 WBC (Bld) 0.6 % Normal 0.2-2.0 [facility] Comment on above: Performed By: #### B MP #### [facility] [address] [address] [address] Kaylene Montoya EO # 0.0 103/ul Normal 0.0-0.7 [facility] Comment on above: Performed By: #### B MP #### [facility] [address] [address] [address] Kaylene Montoya Eosinophils/100 WBC (Bld) 0.3 % Critically low 0.9-7.0 [facility] Comment on above: Performed By: #### B MP #### [facility] [address] [address] [address] Kaylene Montoya Erythrocyte distribution width (RBC) [Ratio] 15.9 % Critically high 11.0-15.0 [facility] Comment on above: Performed By: #### B MP #### [facility] [address] [place] [address] Dr. Kaylene Montoya Hematocrit (Bld) [Volume fraction] 45.6 % Normal 42.0-54.0 [facility] Comment on above: Performed By: #### B MP #### [facility] [address] [place] [address] Dr. Kaylene Montoya Hemoglobin (Bld) [Mass/Vol] 14.2 g/dL Normal 14.0-18.0 [facility] Comment on above: Performed By: #### B MP #### [facility] [address] [place] [address] Dr. Kaylene Montoya IG # 0.02 10e3/ul Normal 0.00-0.03 [facility] Comment on above: Performed By: #### B MP #### [facility] [address] [place] [address] Dr. Kaylene Montoya IG % 0.3 % Normal 0.0-0.5 [facility] Comment on above: Performed By: #### B MP #### [facility] [address] [place] [address] Dr. Kaylene Montoya LYMPH # 1.3 103/ul Normal 1.2-3.8 [facility] Comment on above: Performed By: #### B MP #### [facility] [address] [place] [address] Dr. Kaylene Montoya Lymphocytes/100 WBC (Bld) 18.8 % Critically low 20.5-60.0 [facility] Comment on above: Performed By: #### B MP #### [facility] [address] [place] [address] Dr. Kaylene Montoya MANUAL DIFF REQ NO Normal [facility] Comment on above: Performed By: #### B MP #### [facility] [address] [place] [address] Dr. Kaylene Montoya MCH (RBC) [Entitic mass] 29.2 pg Normal 25.9-34.0 [facility] Comment on above: Performed By: #### B MP #### [facility] [address] [place] [address] Dr. Kaylene Montoya MCHC (RBC) [Mass/Vol] 31.1 g/dL Normal 29.9-35.2 [facility] Comment on above: Performed By: #### B MP #### [facility] [address] [place] [address] Dr. Kaylene Montoya MCV (RBC) [Entitic vol] 93.6 fL Normal 80.0-94.0 [facility] Comment on above: Performed By: #### B MP #### [facility] [address] [place] [address] Dr. Kaylene Montoya MONO # 0.7 103/ul Normal 0.3-0.8 [facility] Comment on above: Performed By: #### B MP #### [facility] [address] [place] [address] Dr. Kaylene Montoya Monocytes/100 WBC (Bld) 9.8 % Normal 1.7-12.0 [facility] Comment on above: Performed By: #### B MP #### [facility] [address] [place] [address] Dr. Kaylene Montoya NEUT # 4.9 103/ul Normal 1.4-6.5 [facility] Comment on above: Performed By: #### B MP #### [facility] [address] [place] [address] Dr. Kaylene Montoya Neutrophils/100 WBC (Bld) 70.2 % Normal 43.0-75.0 [facility] Comment on above: Performed By: #### B MP #### [facility] [address] [place] [address] Dr. Kaylene Montoya Platelet mean volume (Bld) [Entitic vol] 10.6 fL Normal 9.5-13.5 [facility] Comment on above: Performed By: #### B MP #### [facility] [address] [place] [address] Dr. Kaylene Montoya PLT 168 103/ul Normal 150-450 [facility] Comment on above: Performed By: #### B MP #### [facility] [address] [place] [address] Dr. Kaylene Montoya RBC 4.87 106/ul Normal 4.70-6.10 [facility] Comment on above: Performed By: #### B MP #### [facility] [address] [place] [address] Dr. Kaylene Montoya WBC 6.9 103/ul Normal 4.0-11.0 [facility] Comment on above: Performed By: #### B MP #### [facility] [address] [place] [address] Dr. Kaylene Montoya FREE T3on 09-05-2022 FREE T3 1.37 pg/mlL Critically low 2.18-3.98 [facility] Comment on above: Performed By: #### P TT, PT #### [facility] [address] [place] [address] Dr. Kaylene Montoya FREE T4on 09-05-2022 Free T4 [Mass/Vol] 1.13 ng/dL Normal 0.76-1.46 [facility] Comment on above: Performed By: #### F T4 #### [facility] [address] [place] [address] Dr. Kaylene Montoya PROF 14(COMP METB)on 023 Albumin [Mass/Vol] 3.9 g/dL Normal 3.4-5.0 [facility] Comment on above: Performed By: #### P TT, PT #### [facility] [address] [place] [address] Dr. Kaylene Montoya Albumin/Globulin [Mass ratio] 1.3 {ratio} Normal [facility] Comment on above: Performed By: #### P TT, PT #### [facility] [address] [place] [address] Dr. Kaylene Montoya ALP [Catalytic activity/Vol] 81 U/L Normal 46-116 [facility] Comment on above: Performed By: #### P TT, PT #### [facility] [address] [place] [address] Dr. Kaylene Montoya ALT [Catalytic activity/Vol] 10 U/L Critically low 16-63 [facility] Comment on above: Performed By: #### P TT, PT #### [facility] [address] [address] [address] Kaylene Montoya Anion gap [Moles/Vol] 10.7 mmol/L Normal [facility] Comment on above: Performed By: #### P TT, PT #### [facility] [address] [place] [address] Dr. Kaylene Montoya AST [Catalytic activity/Vol] 16 U/L Normal 15-37 [facility] Comment on above: Performed By: #### P TT, PT #### [facility] [address] [place] [address] Dr. Kaylene Montoya Bilirubin [Mass/Vol] 0.8 mg/dL Normal 0.2-1.0 [facility] Comment on above: Performed By: #### P TT, PT #### [facility] [address] [place] [address] Dr. Kaylene Montoya Calcium [Mass/Vol] 9.4 mg/dL Normal 8.5-10.1 [facility] Comment on above: Performed By: #### P TT, PT #### [facility] [address] [place] [address] Dr. Kaylene Montoya Chloride [Moles/Vol] 100 mmol/L Normal 98-107 [facility] Comment on above: Performed By: #### P TT, PT #### [facility] [address] [place] [address] Dr. Kaylene Montoya CO2 [Moles/Vol] 31.6 mmol/L Normal 21.0-32.0 [facility] Comment on above: Performed By: #### P TT, PT #### [facility] [address] [place] [address] Dr. Kaylene Montoya Creatinine [Mass/Vol] 1.02 mg/dL Normal 0.70-1.30 [facility] Comment on above: Performed By: #### P TT, PT #### [facility] [address] [place] [address] Dr. Kaylene Montoya EGFR-AF ENGLISH >60 Normal >=60 [facility] Comment on above: Performed By: #### P TT, PT #### [facility] [address] [address] [address] Kaylene Montoya EGFR-NON AF ENGLISH >60 Normal >=60 [facility] Comment on above: Performed By: #### P TT, PT #### [facility] [address] [place] [address] Dr. Kaylene Montoya Globulin (S) [Mass/Vol] 3.0 g/dL Normal [facility] Comment on above: Performed By: #### P TT, PT #### [facility] [address] [address] [address] Kaylene Montoya Glucose [Mass/Vol] 84 mg/dL Normal 74-106 [facility] Comment on above: Performed By: #### P TT, PT #### [facility] [address] [place] [address] Dr. Kaylene Montoya Potassium [Moles/Vol] 4.3 mmol/L Normal 3.5-5.1 [facility] Comment on above: Performed By: #### P TT, PT #### [facility] [address] [place] [address] Dr. Kaylene Montoya Protein [Mass/Vol] 6.9 g/dL Normal 6.4-8.2 [facility] Comment on above: Performed By: #### P TT, PT #### [facility] [address] [place] [address] Dr. Kaylene Montoya Sodium [Moles/Vol] 138 mmol/L Normal 136-145 [facility] Comment on above: Performed By: #### P TT, PT #### [facility] [address] [place] [address] Dr. Kaylene Montoya Urea nitrogen [Mass/Vol] 21.0 mg/dL Critically high 7.0-18.0 [facility] Comment on above: Performed By: #### P TT, PT #### [facility] [address] [place] [address] Dr. Kaylene Montoya Urea nitrogen/Creatinine [Mass ratio] 20.6 mg/mg Normal [facility] Comment on above: Performed By: #### P TT, PT #### [facility] [address] [place] [address] Dr. Kaylene Montoya TSHon 09-05-2022 TSH 1.427 uIU/mL Normal 0.358-3.740 [facility] Comment on above: Performed By: #### P TT, PT #### [facility] [address] [place] [address] Dr. Kaylene Montoya Covid-19 PCR ([facility])on 06-30 SARS-CoV-2 (COVID-19) RNA RENU+probe Ql (Unsp spec) Not detected Normal NOT DETECTED [facility] Comment on above: Result Comment: This test is not yet approved or cleared by the [place] FDA. When there are no FDA-approved or cleared tests available, and other criteria are met, FDA can make tests available under an emergency access mechanism called an Emergency Use Authorization (EUA). The EUA for this test is supported by the [employer] Worker of Health and Human Service's (HHS's) declaration [...] SARS-CoV-2. Performed By: #### F T4 #### [facility] [address] [place] [address] Dr. Kaylene Montoya INFLUENZA A AND B AGon 07-18 INFLUANEGH SEE BELOW Normal [facility] Comment on above: Result Comment: Nega tive for Flu A protein angiten. Infection due to Flu A cannot be ruled out. Flu A angiten in the sample may be below the detection limit of the test. Performed By: #### F T4 #### [facility] [address] [place] [address] Dr. Kaylene Montoya INFLUBNEGH SEE BELOW Normal [facility] Comment on above: Result Comment: Nega tive for Flu B protein antigen. Infection due to Flu B cannot be ruled out. Flu B antigen in the sample may be below the detection limit of the test. Performed By: #### F T4 #### [facility] [address] [place] [address] Dr. Kaylene Montoya INFLUENZA A AG Negative Normal NEGATIVE SEE COMMENT [facility] Comment on above: Performed By: #### F T4 #### [facility] [address] [address] [address] Kaylene Montoya INFLUENZA B AG Negative Normal NEGATIVE SEE COMMENT [facility] Comment on above: Performed By: #### F T4 #### [facility] [address] [address] [address] Kaylene Montoya INTERNAL CONTROLS Within Normal Limits Normal Wi thin Normal Limits [facility] Comment on above: Performed By: #### F T4 #### [facility] [address] [place] [address] Dr. Kaylene Montoya Office Visit (Cardiology)on 02-24-2022 Follow-up visit Diagnoses/Problems Assessed Paroxysmal atrial fibrillation (427.31) (I48.0) Anticoagulated (V58.61) (Z79.01) Former smoker (V15.82) (Z87.891) Body mass index (BMI) of 24.0 to 24.9 in adult (V85.1) (Z68.24) Orders Paroxysmal atrial fibrillation Renew: Aspirin EC 81 MG Oral Tablet Delayed Release; 1 tablet twice weekly SocHx: Former smoker Tobacco Use Screening; Status:Complete; Done: [id number] Patient Instructions Please bring all medicines, vitamins, [...] negative for complaint. Vitals Vital Signs Recorded: [id number] 09:10AM Heart Rate60, L Radial Tmlzfwgd300, LUE, Sitting Fitlbqcms73, LUE, Sitting Height5 ft 8 in Fkvxxd666 lb BMI Yrqzyzlhqi99.63 kg/m2 BSA Calculated1.87 Tobacco Useb) No Falls [...] insight i (more content not included)... Normal [employer] Tobacco Screening.on Fall risk assessment b) One or more fall s in the last year [facility] [employer] 600 DO Work Phone: Tobacco use status [facility] b) No [facility] [employer] 600 DO Work Phone: BNPon 12-23-2021 Natriuretic peptide B (Bld) [Mass/Vol] 641.0 pg/mL Normal <=1,800.0 [facility] Comment on above: Performed By: #### F T4 #### [facility] [address] [address] [address] Kaylene Montoya CARDIAC CRISTIAN ADMITon CK [Catalytic activity/Vol] 65 U/L Normal 39-308 [facility] Comment on above: Performed By: #### F T4 #### [facility] [address] [place] [address] Dr. Kaylene Montoya CK.MB [Mass/Vol] 2.20 ng/mL Normal <=3.60 [facility] Comment on above: Performed By: #### F T4 #### [facility] [address] [place] [address] Dr. Kaylene Montoya HSTROP 13.9 pg/mL Normal 4.0-76.1 [facility] Comment on above: Result Comment: CUT- OFF POINTS HAVE BEEN ESTABLISHED BASED ON THE FOURTH UNIVERSAL DEFINITIONS OF MYOCARDIAL INFARCTION. THE UPPER REFERENCE LIMIT (URL) OF TROPONIN, DEFINED THE 99TH PERCENTILE OF cTnI DISTRIBUTION IN A REFERENCE POPULATION, HAS BEEN CONFIRMED THE DECISION THRESHOLD FOR [place] DIAGNOSIS. Performed By: #### F T4 #### [facility] [address] [place] [address] Dr. Kaylene Montoya LEOPOLDO 83 ng/mL Normal 16-96 [facility] Comment on above: Performed By: #### F T4 #### [facility] [address] [place] [address] Dr. Kaylene Montoya CBC AUTO DIFFon 12-23-2021 BASO # 0.0 103/ul Normal 0.0-0.1 [facility] Comment on above: Performed By: #### L ACT #### [facility] [address] [place] [address] Dr. Kaylene Montoya Basophils/100 WBC (Bld) 0.4 % Normal 0.2-2.0 [facility] Comment on above: Performed By: #### L ACT #### [facility] [address] [place] [address] Dr. Kaylene Montoya EO # 0.2 103/ul Normal 0.0-0.7 [facility] Comment on above: Performed By: #### L ACT #### [facility] [address] [place] [address] Dr. Kaylene Montoya Eosinophils/100 WBC (Bld) 2.9 % Normal 0.9-7.0 [facility] Comment on above: Performed By: #### L ACT #### [facility] [address] [place] [address] Dr. Kaylene Montoya Erythrocyte distribution width (RBC) [Ratio] 14.5 % Normal 11.0-15.0 [facility] Comment on above: Performed By: #### L ACT #### [facility] [address] [place] [address] Dr. Kaylene Montoya Hematocrit (Bld) [Volume fraction] 46.6 % Normal 42.0-54.0 [facility] Comment on above: Performed By: #### L ACT #### [facility] [address] [place] [address] Dr. Kaylene Montoya Hemoglobin (Bld) [Mass/Vol] 15.0 g/dL Normal 14.0-18.0 [facility] Comment on above: Performed By: #### L ACT #### [facility] [address] [place] [address] Dr. Kaylene Montoya IG # 0.06 10e3/ul Critically high 0.00-0.03 [facility] Comment on above: Performed By: #### L ACT #### [facility] [address] [place] [address] Dr. Kaylene Montoya IG % 0.8 % Critically high 0.0-0.5 [facility] Comment on above: Performed By: #### L ACT #### [facility] [address] [place] [address] Dr. Kaylene Montoya LYMPH # 1.1 103/ul Critically low 1.2-3.8 [facility] Comment on above: Performed By: #### L ACT #### [facility] [address] [place] [address] Dr. Kaylene Montoya Lymphocytes/100 WBC (Bld) 14.9 % Critically low 20.5-60.0 [facility] Comment on above: Performed By: #### L ACT #### [facility] [address] [place] [address] Dr. Kaylene Montoya MANUAL DIFF REQ NO Normal [facility] Comment on above: Performed By: #### L ACT #### [facility] [address] [address] [address] Kaylene Montoya MCH (RBC) [Entitic mass] 29.9 pg Normal 25.9-34.0 [facility] Comment on above: Performed By: #### L ACT #### [facility] [address] [place] [address] Dr. Kaylene Montoya MCHC (RBC) [Mass/Vol] 32.2 g/dL Normal 29.9-35.2 [facility] Comment on above: Performed By: #### L ACT #### [facility] [address] [place] [address] Dr. Kaylene Montoya MCV (RBC) [Entitic vol] 93.0 fL Normal 80.0-94.0 [facility] Comment on above: Performed By: #### L ACT #### [facility] [address] [place] [address] Dr. Kaylene Montoya MONO # 1.3 103/ul Critically high 0.3-0.8 [facility] Comment on above: Performed By: #### L ACT #### [facility] [address] [place] [address] Dr. Kaylene Montoya Monocytes/100 WBC (Bld) 16.5 % Critically high 1.7-12.0 [facility] Comment on above: Performed By: #### L ACT #### [facility] [address] [place] [address] Dr. Kaylene Montoya NEUT # 4.9 103/ul Normal 1.4-6.5 [facility] Comment on above: Performed By: #### L ACT #### [facility] [address] [place] [address] Dr. Kaylene Montoya Neutrophils/100 WBC (Bld) 64.5 % Normal 43.0-75.0 [facility] Comment on above: Performed By: #### L ACT #### [facility] [address] [place] [address] Dr. Kaylene Montoya Platelet mean volume (Bld) [Entitic vol] 9.8 fL Normal 9.5-13.5 [facility] Comment on above: Performed By: #### L ACT #### [facility] [address] [address] [address] Kaylene Montoya PLT 171 103/ul Normal 150-450 [facility] Comment on above: Performed By: #### L ACT #### [facility] [address] [place] [address] Dr. Kaylene Montoya RBC 5.01 106/ul Normal 4.70-6.10 [facility] Comment on above: Performed By: #### L ACT #### [facility] [address] [place] [address] Dr. Kaylene Montoya WBC 7.7 103/ul Normal 4.0-11.0 [facility] Comment on above: Performed By: #### L ACT #### [facility] [address] [place] [address] Dr. Kaylene Montoya LACTATE/LACTIC ACIDon 2021 Lactate [Moles/Vol] 0.8 mmol/L Normal 0.4-1.9 [facility] Comment on above: Performed By: #### L ACT #### [facility] [address] [place] [address] Dr. Kaylene Montoya PROF 14(COMP METB)on 022 Albumin [Mass/Vol] 3.8 g/dL Normal 3.4-5.0 [facility] Comment on above: Performed By: #### F T4 #### [facility] [address] [place] [address] Dr. Kaylene Montoya Albumin/Globulin [Mass ratio] 1.0 {ratio} Normal [facility] Comment on above: Performed By: #### F T4 #### [facility] [address] [place] [address] Dr. Kaylene Montoya ALP [Catalytic activity/Vol] 109 U/L Normal 46-116 [facility] Comment on above: Performed By: #### F T4 #### [facility] [address] [place] [address] Dr. Kaylene Montoya ALT [Catalytic activity/Vol] 7 U/L Critically low 16-63 [facility] Comment on above: Performed By: #### F T4 #### [facility] [address] [address] [address] Kaylene Montoya Anion gap [Moles/Vol] 9.6 mmol/L Normal [facility] Comment on above: Performed By: #### F T4 #### [facility] [address] [address] [address] Kaylene Montoya AST [Catalytic activity/Vol] 14 U/L Critically low 15-37 [facility] Comment on above: Performed By: #### F T4 #### [facility] [address] [address] [address] Kaylene Montoya Bilirubin [Mass/Vol] 0.7 mg/dL Normal 0.2-1.0 [facility] Comment on above: Performed By: #### F T4 #### [facility] [address] [place] [address] Dr. Kaylene Montoya Calcium [Mass/Vol] 9.2 mg/dL Normal 8.5-10.1 [facility] Comment on above: Performed By: #### F T4 #### [facility] [address] [place] [address] Dr. Kaylene Montoya Chloride [Moles/Vol] 104 mmol/L Normal 98-107 [facility] Comment on above: Performed By: #### F T4 #### [facility] [address] [address] [address] Kaylene Montoya CO2 [Moles/Vol] 31.6 mmol/L Normal 21.0-32.0 [facility] Comment on above: Performed By: #### F T4 #### [facility] [address] [place] [address] Dr. Kaylene Montoya Creatinine [Mass/Vol] 1.05 mg/dL Normal 0.70-1.30 [facility] Comment on above: Performed By: #### F T4 #### [facility] [address] [place] [address] Dr. Kaylene Montoya EGFR-AF ENGLISH >60 Normal >=60 [facility] Comment on above: Performed By: #### F T4 #### [facility] [address] [place] [address] Dr. Kaylene Montoya EGFR-NON AF ENGLISH >60 Normal >=60 [facility] Comment on above: Performed By: #### F T4 #### [facility] [address] [address] [address] Kaylene Montoya Globulin (S) [Mass/Vol] 3.7 g/dL Normal [facility] Comment on above: Performed By: #### F T4 #### [facility] [address] [address] [address] Kaylene Montoya Glucose [Mass/Vol] 97 mg/dL Normal 74-106 [facility] Comment on above: Performed By: #### F T4 #### [facility] [address] [address] [address] Kaylene Montoya Potassium [Moles/Vol] 4.2 mmol/L Normal 3.5-5.1 [facility] Comment on above: Performed By: #### F T4 #### [facility] [address] [place] [address] Dr. Kaylene Montoya Protein [Mass/Vol] 7.5 g/dL Normal 6.4-8.2 [facility] Comment on above: Performed By: #### F T4 #### [facility] [address] [address] [address] Kaylene Montoya Sodium [Moles/Vol] 141 mmol/L Normal 136-145 [facility] Comment on above: Performed By: #### F T4 #### [facility] [address] [address] [address] Kaylene Montoya Urea nitrogen [Mass/Vol] 24.0 mg/dL Critically high 7.0-18.0 [facility] Comment on above: Performed By: #### F T4 #### [facility] [address] [address] [address] Kaylene Montoya Urea nitrogen/Creatinine [Mass ratio] 22.9 mg/mg Normal [facility] Comment on above: Performed By: #### F T4 #### [facility] [address] [address] [address] Kaylene Montoya PROTIMEon 12-23-2021 INR Coag (PPP) [Relative time] 1.13 {INR} Normal [facility] Comment on above: Performed By: #### P TT, PT #### [facility] [address] [place] [address] Dr. Kaylene Montoya INR GUIDELINES SEE BELOW Normal [facility] Comment on above: Result Comment: JOSE RED INR: 2.0 - 3.0 CONDITIONS NOT LISTED BELOW 2.5 - 3.5 FOR PROSTHETIC HEART VALVE REPLACEMENT 2.5 - 3.5 RECURRENT THROMBOSIS Performed By: #### P TT, PT #### [facility] [address] [address] [address] Kaylene Montoya PT Coag (PPP) [Time] 12.1 s Critically high 9.0-11.6 [facility] Comment on above: Performed By: #### P TT, PT #### [facility] [address] [place] [address] Dr. Kaylene Montoya PTTon 12-23-2021 aPTT Coag (Bld) [Time] 33.4 s Normal 22.3-36.2 [facility] Comment on above: Performed By: #### P TT, PT #### [facility] [address] [place] [address] Dr. Kaylene Montoya TROPONIN, HIGH SENSITIVITYon 12-23-2021 HSTROP 11.0 pg/mL Normal 4.0-76.1 [facility] Comment on above: Result Comment: CUT- OFF POINTS HAVE BEEN ESTABLISHED BASED ON THE FOURTH UNIVERSAL DEFINITIONS OF MYOCARDIAL INFARCTION. THE UPPER REFERENCE LIMIT (URL) OF TROPONIN, DEFINED THE 99TH PERCENTILE OF cTnI DISTRIBUTION IN A REFERENCE POPULATION, HAS BEEN CONFIRMED THE DECISION THRESHOLD FOR [place] DIAGNOSIS. Performed By: #### F T4 #### [facility] [address] [place] [address] Dr. Kaylene Montoya XR CHEST 1 Von [...] JORDAN CHEN Date: 2021-12-23 09:12 Normal [facility] Cardiovasc Arrhythmia Result son 10-13-2021 Cardiovasc Arrhythmia Results Reason For Visit Reason for Visit: Holter Monitor: MAGDALENO is here for the application of a 24 hour Holter monitor. Ordering Physician: Dr. Edel Cesar MD Diagnosis: PAF NO equipment agreement signed. MAGDALENO understands monitor is to be returned on: 10/14/2021 Monitor number [id number] applied. Holter monitor returned and downloaded. holter placed on hmi desk for dicatation in dr guanakito dillard. Procedure 1?the rhythm was mostly sinus [...] visualized. No diary was returned Future Appointments Date/TimeProviderSpecialt ySite 12/29/2021 09:40 AMTraboEdel cox, [id number] [place] [facility] [address] DO Signatures Electronically signed by : Daphne Tapia MA; Oct 19 2021 4:22PM EST (Author) Electronically signed by : Courtney Fleming MD; Oct 20 2021 5:05PM EST (Author) Normal [facility] Office Visit (Cardiology)on 10-08-2021 Follow-up visit Diagnoses/Problems [...] Instructions By signing my name below, I, Dariel King LPNibe, attest that this documentation has been prepared [...] Systems Constitutional: (more content not included)... Normal [employer] Tobacco Screening.on 022 Adult depression screening assessment No [facility] Work Phone: Fall risk assessment b) One or more fall s in the last year [facility] Work Phone: Tobacco use status CPHS b) No [facility] Work Phone: Vital Signs Date Time Vital Sign Value Performing Clinician Facility 02-09-2024 08:35-0400 Body height 172.7 cm Efren Carbajal DO Work Phone: [facility] 02-09-2024 08:35-0400 Diastolic blood pressure 79 mm[Hg] Efren Carbajal DO Work Phone: [facility] 02-09-2024 08:35-0400 Heart rate 78 /min Efren Carbajal DO Work Phone: [facility] 02-09-2024 08:35-0400 Systolic blood pressure 134 mm[Hg] Efren Carbajal DO Work Phone: [facility] 11-07-2023 15:41-0400 Body height 172.7 cm Edel Cesar MD Work Phone: [facility] 11-07-2023 15:41-0400 Body mass index (BMI) [Ratio] 21.59 kg/m2 Edel Cesar MD Work Phone: [facility] 11-07-2023 15:41-0400 Body weight 64.41 kg Edel Cesar MD Work Phone: [facility] 11-07-2023 15:41-0400 Diastolic blood pressure 62 mm[Hg] Edel Cesar MD Work Phone: [facility] 11-07-2023 15:41-0400 Heart rate 78 /min Edel Cesar MD Work Phone: [facility] 11-07-2023 15:41-0400 Systolic blood pressure 102 mm[Hg] Edel Cesar MD Work Phone: [facility] 07-23-2023 14:00-0500 Body temperature 97.2 [degF] MD Christo Orellana Work Phone: [facility] 07-23-2023 14:00-0500 Diastolic blood pressure 76 mm[Hg] MD Christo Orellana Work Phone: [facility] 07-23-2023 14:00-0500 Heart rate 70 /min MD Christo Orellana Work Phone: [facility] 07-23-2023 14:00-0500 Respiratory rate 16 /min MD Christo Orellana Work Phone: [facility] 07-23-2023 14:00-0500 SaO2% (BldA) [Mass fraction] 100 % MD Christo Orellana Work Phone: [facility] 07-23-2023 14:00-0500 Systolic blood pressure 131 mm[Hg] MD Christo Orellana Work Phone: [facility] 07-23-2023 06:00-0500 Body weight 61 kg MD Christo Orellana Work Phone: [facility] 07-21-2023 16:34-0500 Body height 172.72 cm MD Christo Orellana Work Phone: [facility] 07-21-2023 16:00-0500 Diastolic blood pressure 68 mm[Hg] MD Christo Orellana Work Phone: [facility] 07-21-2023 16:00-0500 Heart rate 69 /min MD Christo Orellana Work Phone: [facility] 07-21-2023 16:00-0500 Respiratory rate 16 /min MD Christo Orellana Work Phone: [facility] 07-21-2023 16:00-0500 Systolic blood pressure 115 mm[Hg] MD Christo Orellana Work Phone: [facility] 07-21-2023 14:30-0500 SaO2% (BldA) [Mass fraction] 99 % MD Christo Orellana Work Phone: [facility] 07-21-2023 11:36-0500 Body height 172.72 cm MD Christo Orellana Work Phone: [facility] 07-21-2023 11:36-0500 Body weight 58.05 kg MD Christo Orellana Work Phone: [facility] 07-21-2023 11:35-0500 Body temperature 97.7 [degF] MD Christo Orellana Work Phone: [facility] 07-13-2023 14:30-0500 Body height 172.7 cm [facility] 07-13-2023 14:30-0500 Body mass index (BMI) [Ratio] 21.13 kg/m2 [facility] 07-13-2023 14:30-0500 Body weight 63.05 kg [facility] 07-13-2023 14:30-0500 Diastolic blood pressure 82 mm[Hg] [facility] 07-13-2023 14:30-0500 Heart rate 70 /min [facility] 07-13-2023 14:30-0500 Systolic blood pressure 118 mm[Hg] [facility] 07-05-2023 14:33-0500 Body height 170.2 cm Edel Cesar MD Work Phone: [facility] 07-05-2023 14:33-0500 Body mass index (BMI) [Ratio] 21.61 kg/m2 Edel Cesar MD Work Phone: [facility] 07-05-2023 14:33-0500 Body weight 62.6 kg Edel Cesar MD Work Phone: [facility] 07-05-2023 14:33-0500 Diastolic blood pressure 60 mm[Hg] Edel Cesar MD Work Phone: [facility] 07-05-2023 14:33-0500 Heart rate 60 /min Edel Cesar MD Work Phone: [facility] 07-05-2023 14:33-0500 Systolic blood pressure 122 mm[Hg] Edel Cesar MD Work Phone: [facility] 05-05-2023 10:52-0400 Body temperature 97.11 [degF] Efren Carbajal DO Work Phone: [facility] 05-05-2023 10:52-0400 Body weight 62.6 kg Efren Carbajal DO Work Phone: [facility] 05-05-2023 10:52-0400 Diastolic blood pressure 59 mm[Hg] Efren Carbajal DO Work Phone: [facility] 05-05-2023 10:52-0400 Heart rate 82 /min Efren Carbajal DO Work Phone: [facility] 05-05-2023 10:52-0400 SaO2% (BldA) [Mass fraction] 97 % Efren Carbajal DO Work Phone: [facility] 05-05-2023 10:52-0400 Systolic blood pressure 120 mm[Hg] Efren Carbajal DO Work Phone: [facility] 12-21-2022 15:05-0400 Body height 172.72 cm Amy Dye Zuñiga Work Phone: [facility] 600 DO Work Phone: 12-21-2022 15:05-0400 Body mass index (BMI) [Ratio] 21.74 kg/m2 Amy Dye Zuñiga Work Phone: [facility] 600 DO Work Phone: 12-21-2022 15:05-0400 Body surface area Derived from formula 1.77 m2 Amy Dye Zuñiga Work Phone: [facility] 600 DO Work Phone: 12-21-2022 15:05-0400 Body weight 64.86 kg Amy Dye Zuñiga Work Phone: [facility] 600 DO Work Phone: 12-21-2022 15:05-0400 Diastolic blood pressure 78 mm[Hg] Amy Dye Zuñiga Work Phone: [facility] 600 DO Work Phone: 12-21-2022 15:05-0400 Heart rate 84 /min Amy Dye Zuñiga Work Phone: [facility] 600 DO Work Phone: 12-21-2022 15:05-0400 Systolic blood pressure 132 mm[Hg] Amy Dye Zuñiga Work Phone: [facility] 600 DO Work Phone: 11-25-2022 09:59-0400 Body height 172.72 cm Amy Dye Zuñiga Work Phone: [facility] 250 DO Work Phone: 11-25-2022 09:59-0400 Body mass index (BMI) [Ratio] 23.57 kg/m2 Amy Dye Zuñiga Work Phone: [facility] 250 DO Work Phone: 11-25-2022 09:59-0400 Body surface area Derived from formula 1.83 m2 Amy Julesight Work Phone: [facility] 250 DO Work Phone: 11-25-2022 09:59-0400 Body weight 70.31 kg Amy Julesight Work Phone: [facility] 250 DO Work Phone: 11-25-2022 09:59-0400 Diastolic blood pressure 74 mm[Hg] Amy Zuñiga Work Phone: [facility] 250 DO Work Phone: 11-25-2022 09:59-0400 Heart rate 70 /min Amy Julesight Work Phone: [facility] 250 DO Work Phone: 11-25-2022 09:59-0400 Systolic blood pressure 130 mm[Hg] Amy Dye Zuñiga Work Phone: [facility] 250 DO Work Phone: 10-05-2022 12:45-0500 Body weight 70.53 kg Ayana Missler Other [employer] Other 10-05-2022 12:45-0500 Diastolic blood pressure 77 mm[Hg] Ayana Missler Other [employer] Other 10-05-2022 12:45-0500 Respiratory rate 18 /min Ayana Missler Other [employer] Other 10-05-2022 12:45-0500 SaO2% (BldA) [Mass fraction] 98 % Ayana Missler Other [employer] Other 10-05-2022 12:45-0500 Systolic blood pressure 126 mm[Hg] Ayana Miles Other [facility] [employer] Other 10-03-2022 11:49-0500 Body height 172.72 cm Amy Zuñiga Work Phone: [facility] 250 DO Work Phone: 10-03-2022 11:49-0500 Body mass index (BMI) [Ratio] 23.57 kg/m2 Amy Julesight Work Phone: [facility] 250 DO Work Phone: 10-03-2022 11:49-0500 Body surface area Derived from formula 1.83 m2 Amy Zuñiga Work Phone: [facility] 250 DO Work Phone: 10-03-2022 11:49-0500 Body temperature 98.7 [degF] Amy Zuñiga Work Phone: [facility] 250 DO Work Phone: 10-03-2022 11:49-0500 Body weight 70.31 kg Amy Zuñiga Work Phone: [facility] 250 DO Work Phone: 10-03-2022 11:49-0500 Diastolic blood pressure 86 mm[Hg] Amy Zuñiga Work Phone: [facility] 250 DO Work Phone: 10-03-2022 11:49-0500 Heart rate 66 /min Amy Zuñiga Work Phone: [facility] 250 DO Work Phone: 10-03-2022 11:49-0500 Systolic blood pressure 146 mm[Hg] Amy Zuñiga Work Phone: [facility] 250 DO Work Phone: 09-27-2022 08:11-0500 Diastolic blood pressure 95 mm[Hg] MD Amy Zuñiga Work Phone: [facility] 09-27-2022 08:11-0500 Heart rate 69 /min MD Amy Zuñiga Work Phone: [facility] 09-27-2022 08:11-0500 Respiratory rate 20 /min MD Amy Zuñiga Work Phone: [facility] 09-27-2022 08:11-0500 SaO2% (BldA) [Mass fraction] 98 % MD Amy Zuñiga Work Phone: [facility] 09-27-2022 08:11-0500 Systolic blood pressure 146 mm[Hg] MD Amy Zuñiga Work Phone: [facility] 09-27-2022 03:00-0500 Body temperature 98.2 [degF] MD Amy Zuñiga Work Phone: [facility] 09-26-2022 15:35-0500 Body height 172.72 cm MD Amy Zuñiga Work Phone: [facility] 09-26-2022 15:35-0500 Body mass index (BMI) [Ratio] 23.1 kg/m2 MD Amy Zuñiga Work Phone: [facility] 09-26-2022 15:35-0500 Body weight 69.1 kg MD Amy Zuñiga Work Phone: [facility] 09-26-2022 00:00-0500 65 1 Cesar Luz Elena Work Phone: [facility] 250 DO Work Phone: Comment on above: [id number] 02-24-2022 09:10-0400 Body height 172.72 cm Cesar [place] Work Phone: [facility] 600 DO Work Phone: 02-24-2022 09:10-0400 Body mass index (BMI) [Ratio] 24.63 kg/m2 Cesar Luz Elena Work Phone: [facility] 600 DO Work Phone: 02-24-2022 09:10-0400 Body surface area Derived from formula 1.87 m2 Cesar [place] Work Phone: [facility] 600 DO Work Phone: 02-24-2022 09:10-0400 Body weight 73.48 kg Cesar Luz Elean Work Phone: [facility] 600 DO Work Phone: 02-24-2022 09:10-0400 Diastolic blood pressure 68 mm[Hg] Cesar Luz Elena Work Phone: [facility] 600 DO Work Phone: 02-24-2022 09:10-0400 Heart rate 60 /min Cesar Luz Elena Work Phone: [facility] 600 DO Work Phone: 02-24-2022 09:10-0400 Systolic blood pressure 108 mm[Hg] Cesar [place] Work Phone: [facility] 600 DO Work Phone: 10-08-2021 10:41-0500 Diastolic blood pressure 70 mm[Hg] Cesar [place] Work Phone: [facility] Work Phone: 10-08-2021 10:41-0500 Systolic blood pressure 142 mm[Hg] Cesar [place] Work Phone: [facility] Work Phone: 10-08-2021 10:35-0500 Body height 172.72 cm Cesar Luz Elena Work Phone: [facility] Work Phone: 10-08-2021 10:35-0500 Body mass index (BMI) [Ratio] 25.54 kg/m2 Cesartata Laguna Work Phone: [facility] Work Phone: 10-08-2021 10:35-0500 Body surface area Derived from formula 1.9 m2 Cesar [place]una Work Phone: [facility] Work Phone: 10-08-2021 10:35-0500 Body weight 76.2 kg Cesartata Laguna Work Phone: [facility] Work Phone: 10-08-2021 10:35-0500 Diastolic blood pressure 70 mm[Hg] Cesartata Laguna Work Phone: [facility] Work Phone: 10-08-2021 10:35-0500 Heart rate 57 /min Cesartata Laguna Work Phone: [facility] Work Phone: 10-08-2021 10:35-0500 Systolic blood pressure 142 mm[Hg] Cesartata Laguna Work Phone: [facility] Work Phone: Encounters Encounter Date Encounter Type Care Provider Facility Start: 12-31-2024 ambulatory Christo Orellana Facility :[facility] Start: 03-07-2024 ambulatory Christo Orellana Facility :[facility] Start: 02-29-2024 ambulatory Christo Orellana Facility :[facility] Start: 02-09-2024 End: 02-09-2024 Office outpatient visit 25 minutes Efren Carbajal DO Work Phone: Neurology Comment on above: Leg pain, bilateral (Primary Dx); Primary parkinsonism (HCC); Abnormality of gait; Tendonitis of knee, right Start: 02-09-2024 End: 02-09-2024 ambulatory AMY ZUÑIGA Facility:[facility] Start: 02-07-2024 Refill Efren kinney DO Work Phone: [facility] Comment on above: Refill Request Start: 01-04-2024 End: 01-04-2024 ambulatory TORRIE BARAJAS Not Available Start: 01-03-2024 End: 01-03-2024 Patient encounter procedure MD Christo Orellana Work Phone: [facility] Start: 01-03-2024 End: 01-03-2024 ambulatory MD Christo Orellana Work Phone: [facility] Work Phone: Start: 12-29-2023 End: 12-29-2023 Lab Drop off Christo Orellana [facility] Start: 12-29-2023 End: 12-29-2023 ambulatory Christo Orellana Facility:[facility] Start: 12-28-2023 End: 12-28-2023 ambulatory Christo Orellana Facility:[facility] [place] Start: 12-07-2023 End: 12-07-2023 ambulatory Christo Orellana Facility:[facility] [place] Start: 11-08-2023 End: 11-08-2023 ambulatory Christo Orellana [facility] Start: 11-07-2023 End: 11-07-2023 ambulatory [facility] Start: 11-07-2023 End: 11-07-2023 Office outpatient visit 25 minutes Edel Cesar MD Work Phone: [facility] Comment on above: Persistent atrial fi brillation (CMS/HCC) (Primary Dx); Complete heart block (CMS/HCC); Chronic right heart failure (CMS/HCC); Pulmonary hypertension (CMS/HCC); Pacemaker; Abnormal echocardiogram; Anticoagulated; BMI 26.0-26.9,adult; Former smoker Start: 10-26-2023 End: 10-26-2023 ambulatory TORRIE BARAJAS Not Available Start: 10-24-2023 ambulatory Efren kinney DO Work Phone: [facility] Comment on above: Pain in legs Start: 10-24-2023 Patient encounter status Juan Diego Paulsarthakhai DO Work Phone: [facility] Work Phone: Start: 10-23-2023 ambulatory Efren jacksoni DO Work Phone: [facility] Comment on above: Legs feel like lead Start: 10-04-2023 End: 10-04-2023 ambulatory Christo Orellana Facility:[facility] Start: 09-29-2023 ambulatory Efren Peraza owski DO Work Phone: [facility] Comment on above: Freezing up Start: 09-26-2023 End: 09-26-2023 ambulatory Edel Cesar Facility:[facility] Start: 09-14-2023 ambulatory Efren jacksoni DO Work Phone: [facility] Comment on above: Freezing up Start: 09-08-2023 Telephone encounter Efren michael DO Work Phone: [facility] Comment on above: Clarify C/L CR Start: 09-05-2023 ambulatory Efren jacksoni DO Work Phone: [facility] Comment on above: Medication change Start: 08-31-2023 End: 08-31-2023 Patient encounter procedure MD Christo Orellana Work Phone: [facility] [place] Work Phone: Start: 08-31-2023 End: 08-31-2023 ambulatory MD Christo Orellana Work Phone: [facility] Work Phone: Start: 08-29-2023 End: 08-29-2023 ambulatory AMY ZUÑIGA Facility:[facility] Start: 08-29-2023 End: 08-29-2023 Office outpatient visit 10 minutes Efren Jose Carbajal DO Work Phone: [facility] Comment on above: Primary parkinsonism (Primary Dx); Motor fluctuations related to medication use in Parkinson's disease Start: 08-23-2023 End: 08-23-2023 ambulatory JACKLYN KELLY Facility:[facility] Start: 08-17-2023 End: 08-17-2023 ambulatory TORRIE BARAJAS Not Available Start: 08-07-2023 End: 08-07-2023 ambulatory Christo Orellana Facility:[facility] Start: 07-21-2023 End: 07-23-2023 Evaluation and management of inpatient MD Christo Orellana Work Phone: [facility] Work Phone: Start: 07-19-2023 End: 07-19-2023 ambulatory Christo Orellana [facility] Start: 07-13-2023 End: 07-13-2023 ambulatory [facility] Ambulatory Start: 07-13-2023 End: 07-13-2023 Patient encounter procedure Trung Lopez MA [facility] Comment on above: Persistent atrial fi brillation (CMS/HCC) Refill Request Start: 07-10-2023 Refill Efren kinney DO Work Phone: [facility] Comment on above: Refill Request Start: 07-05-2023 End: 07-05-2023 ambulatory [facility] Ambulatory Start: 07-05-2023 End: 07-05-2023 Office outpatient visit 25 minutes Edel Cesar MD Work Phone: [facility] Comment on above: Persistent atrial fi brillation (CMS/HCC) (Primary Dx); Complete heart block (CMS/HCC); Abnormal echocardiogram; Pacemaker; Pulmonary hypertension (CMS/HCC); Chronic right heart failure (CMS/HCC) Start: 07-05-2023 End: 07-05-2023 ambulatory MD Christo Orellana Work Phone: [facility] Work Phone: Start: 07-05-2023 End: 07-05-2023 Patient encounter procedure MD Christo Orellana Work Phone: [facility]Pacemaker Check Start: 06-26-2023 ambulatory Lars Leivan [facility] Comment on above: SPP Neurology - Jo Ann ent Assistance ([place] ); Insurance Authorization ([place] Approved ) Start: 06-21-2023 End: 06-21-2023 ambulatory WIRE MESH GATE ASSEMBLERPinky Howard Facility:[facility] Start: 06-20-2023 End: 06-20-2023 ambulatory AMY ZUÑIGA Facility:[facility] Start: 06-20-2023 End: 06-20-2023 Office outpatient visit 10 minutes Efren Carbajal DO Work Phone: [facility] Comment on above: Motor fluctuations r elated to medication use in Parkinson's disease Start: 05-30-2023 End: 05-30-2023 ambulatory Christo Orellana Facility[facility] Start: 05-30-2023 End: 05-30-2023 Lab Drop off Christo Orellana [facility] Start: 05-30-2023 End: 05-30-2023 ambulatory Christo Orellana Facility:[facility] Start: 05-05-2023 End: 05-06-2023 ambulatory EFREN CARBAJAL Facility:[facility] Start: 05-05-2023 End: 05-05-2023 Office outpatient visit 25 minutes Efren Carbajal DO Work Phone: Neurology Comment on above: Primary parkinsonism (Primary Dx); Fatigue, unspecified type Start: 05-05-2023 End: 05-05-2023 ambulatory AMY ZUÑIGA Facility:[facility] Start: 04-05-[address] Amy Zuñiga F acility:[id number] Start: 04-05-2023 End: 04-05-2023 Patient encounter procedure MD Christo Orellana Work Phone: [facility]Pac[facility] Check Start: 04-05-2023 End: 04-05-2023 ambulatory MD Christo Orellana Work Phone: [facility] Work Phone: Start: 03-20-2023 End: 03-20-2023 ambulatory Christo Orellana Facility:[facility] Start: 02-20-2023 End: 02-20-2023 ambulatory Christo Alas Reyna Facility:[facility] Start: 01-30-2023 Refill Efren kinney DO Work Phone: [facility] Comment on above: Refill Request Start: 01-06-2023 FUV, Provider: Edel Cesar, Status: Pen, Time: 11:30 AM Amy Zuñiga Work Phone: [facility] 600 DO Work Phone: Start: 01-06-[address] Edel Cesar Facility: Start: 01-04-2023 Chart Update Amy Zuñiga Work Phone: [facility] 600 DO Work Phone: Start: 12-29-[address] Amy Craig acility:[id number] Start: 12-29-2022 End: 12-29-2022 ambulatory MD Amy Zuñiga Work Phone: [facility] Work Phone: Start: 12-29-2022 End: 12-29-2022 Patient encounter procedure MD Amy Zuñiga Work Phone: [facility]Pacemaker Check Start: 12-21-[address] Edel Cesar Facility: Start: 12-13-[address] Amy Craig acility:[id number] Start: 12-13-2022 End: 12-13-2022 Admission to same day surgery center MD Amy Zuñiga Work Phone: [facility]-Procedure Outpatient Work Phone: Start: 12-13-2022 End: 12-13-2022 ambulatory MD Aym Zuñiga Work Phone: [facility] Work Phone: Start: 12-08-2022 End: 12-09-[address] EDEL CESAR Facility: Start: 11-29-2022 End: 11-29-2022 ambulatory Efren Garcia Solomon DO Work Phone: [facility] Comment on above: Motor fluctuations r elated to medication use in Parkinson's disease (HCC) (Primary Dx); Primary parkinsonism (HCC) Start: 11-29-2022 End: 11-29-2022 Telemedicine consultation with patient Efren Macariojosealexsander DO Work Phone: [facility] Start: 11-28-2022 End: 11-29-2022 ambulatory CAITLYN MUELLER . Facility:H1 Start: 11-25-[address] Edel Cesar Facility: Start: 11-25-2022 Office outpatient vi sit 25 minutes Amy Zuñiga Work Phone: [facility] 250 DO Work Phone: Start: 11-24-2022 End: 11-24-[address] USHA FERMIN Facility: Start: 11-22-2022 End: 11-23-2022 ambulatory EFREN CARBAJAL Facility:[facility] Start: 11-22-2022 End: 11-22-2022 Patient encounter procedure Efren Carbajal DO Work Phone: [facility] Comment on above: No-show for appointm ent (Primary Dx) Start: 11-22-2022 End: 11-22-2022 Telemedicine consultation with patient Efren Garcia Eleazarhai DO Work Phone: [facility] Start: 10-20-2022 End: 10-20-2022 ambulatory EFREN CARBAJAL Facility:[facility] Start: 10-19-2022 End: 10-20-[address] AMY ZUÑIGA . Facility:H1 Start: 10-05-2022 End: 10-05-2022 Patient encounter procedure MD Amy Zuñiga Work Phone: [facility] Work Phone: Start: 10-05-2022 ([facility] KRISTIN) [facility] Transition of Care Ayana Miles [facility] Start: 10-05-2022 End: 10-05-2022 ambulatory Ayana Miles Other [facility] [employer] Other Start: 10-03-2022 Postop follow up vis it related to original px Amy Zuñiga Work Phone: [facility] 250 DO Work Phone: Start: 10-03-[address] Roel Mireles II Facility: Start: 09-27-2022 Message Cesar Laguna Work Phone: [facility] 250 DO Work Phone: Start: 09-27-[address] Roel Mireles II Facility:[id number] Start: 09-26-[address] Roel Mireles II Facility:[id number] Start: 09-25-2022 End: 09-27-2022 Evaluation and management of inpatient MD Amy Zuñiga Work Phone: [facility] Work Phone: Start: 09-25-2022 End: 09-25-[address] NILDA CARLISLE . Facility:H1 Start: 09-25-[address] Roel Mireles II Facility:[id number] Start: 09-15-2022 End: 09-16-[address] AMY ZUÑIGA . Facility:H1 Start: 09-05-2022 End: 09-06-[address] AMY ZUÑIGA . Facility:H1 Start: 08-29-2022 Telephone encounter Ayanna gaffney Research Coordinator Work Phone: [facility] Comment on above: Patient Question Start: 08-17-2022 Telephone encounter Efren michael DO Work Phone: [facility] Comment on above: Medication Problem Start: 08-10-[address] Edel Cesar Facility: Start: 07-19-2022 Rx Renewal Cesar [place] Work Phone: [facility] 250 DO Work Phone: Start: 07-18-2022 End: 07-18-[address] AMY ZUÑIGA . Facility:H1 Start: 06-28-2022 Telephone encounter Efren Jose michael DO Work Phone: [facility] Comment on above: Clinical Update (Med ication Question/) Start: 06-24-2022 ambulatory Amanuel Rosa [facility] Start: 06-24-2022 Patient encounter procedure Amanuel Rosa [facility] Comment on above: SPP Neurology - Rosario tment Referral ([facility]); Insurance Authorization ([place] Submission Pending ) Start: 02-24-2022 Office outpatient vi sit 25 minutes Cesar Luz Elena Work Phone: [facility] 600 DO Work Phone: Start: 12-23-2021 End: 12-23-2021 ambulatory JORDAN CHEN Facility:H1 Start: 10-08-2021 Office outpatient ne w 45 minutes Cesar Luz Elena Work Phone: [facility] Work Phone: Procedures Date Procedure Procedure Detail Performing Clinician Start: 11-07-2023 ECG 12-LEAD EDEL FRITZ Start: 11-07-2023 FOLLOW UP IN CARDIOLOGY EDEL CESAR Start: 11-07-2023 Ecg routine ecg w/le ast 12 lds w/i&r Edel Cesar MD Work Phone: Start: 08-31-2023 Basic metabolic 2000 panel - Serum or Plasma EDEL CESAR Start: 08-31-2023 Thyrotropin [Units/v olume] in Serum or Plasma EDEL CESAR Start: 08-31-2023 ECG 12-LEAD MOURHAF TR ABOULSSI Start: 07-21-2023 Plain chest X-ray MD Sa krys Orellana Work Phone: Start: 07-13-2023 ECG 12-LEAD MOURHAF [...] Cardiac pacemaker, d evice (physical object) Christo Orellana Comment on above: 09/26/22 Start: 07-31-2013 Total colonoscopy Timot hy [place] Work Phone: Start: 05-24-2013 Cystoscopy Christo pedroza Start: 03-31-2011 Teleradiotherapy procedure Christo Orellana Start: 12-31-2010 Transrectal biopsy o f prostate using ultrasound guidance Christo Orellana Biopsy of skin Christo Orellana Esophagoduodenostomy Christo Orellana Hernia repair Cesar Luz Elena Work Phone: Insertion of pacemak er pulse generator Amy Zuñiga Work Phone: Operation on colon Cesar H ade Work Phone: Procedure on prostate Timoth y Luz Elena Work Phone: Plan of Treatment Date Care Activity Detail Author Start: 07-03-2031 DTaP/Tdap/Td Vaccine s (3 - Td or Tdap) DTaP/Tdap/Td Vaccines (3 - Td or Tdap) [facility] Start: 07-03-2031 Urine microalbumin profile [facility] Start: 08-31-2026 Diabetes Screening Diabetes Screenin g [facility] Start: 05-05-2026 Diabetes Screening Diabetes Screenin g [facility] Start: 03-31-2024 Influenza vaccination Influenza Vacc ine (#1) [facility] Start: 03-12-2024 End: 03-12-2024 Patient encounter procedure 03/12/2024 3:00 PM EDT Office Visit [address] [id number] Edel Cesar MD [address] [place] [address] 2, [address] [address] [facility] Start: 02-09-2024 End: 02-09-2024 Patient encounter procedure 02/09/2024 8:30 AM EDT Office Visit Neurology [address] [place] [address] Efren Carbajal, DO [address] [place] [address] [facility] Comment on above: Parkinsons Start: 11-07-2023 End: 11-07-2023 Patient encounter procedure 11/07/2023 3:30 PM EDT Office Visit [address] [place] [address] Edel Cesar MD [address] [facility] 2, [address] [address] [facility] Start: 10-25-2023 End: 01-24-2024 Aldolase [Enzymatic activity/volume] in Serum or Plasma ALDOLASE BLD Lab Routine Muscle pain Expected: 10/25/2023, Expires: 01/24/2024 [facility] Work Phone: Comment on above: Expected: 10/25/2023 , Expires: 01/24/2024 Start: 10-25-2023 End: 01-24-2024 Comprehensive metabolic 2000 panel - Serum or Plasma COMP METABOLIC PANEL Lab Routine Muscle pain Expected: 10/25/2023, Expires: 01/24/2024 [facility] Work Phone: Comment on above: Expected: 10/25/2023 , Expires: 01/24/2024 Start: 10-25-2023 End: 01-24-2024 Creatine kinase [Enzymatic activity/volume] in Serum or Plasma CK CREATINE KINASE Lab Routine Muscle pain Expected: 10/25/2023, Expires: 01/24/2024 [facility] Work Phone: Comment on above: Expected: 10/25/2023 , Expires: 01/24/2024 Start: 10-25-2023 End: 01-24-2024 Erythrocyte sedimentation rate SED RATE WESTERGREN Lab Routine Muscle pain Expected: 10/25/2023, Expires: 01/24/2024 [facility] Work Phone: Comment on above: Expected: 10/25/2023 , Expires: 01/24/2024 Start: 10-25-2023 End: 01-24-2024 Magnesium [Mass/volume] in Serum or Plasma MAGNESIUM BLD Lab Routine Muscle pain Expected: 10/25/2023, Expires: 01/24/2024 [facility] Work Phone: Comment on above: Expected: 10/25/2023 , Expires: 01/24/2024 Start: 10-25-2023 End: 01-24-2024 PYRUVATE+LACTATE BL PYRUVATE+LACTATE BL Lab Routine Muscle pain Expected: 10/25/2023, Expires: 01/24/2024 [facility] Work Phone: Comment on above: Expected: 10/25/2023 , Expires: 01/24/2024 Start: 08-05-2023 End: 07-05-2024 ECG 12 Lead ECG 12 Lead ECG Routine Persistent atrial fibrillation (CMS/HCC) Expected: 08/05/2023 (Approximate), Expires: 07/05/2024 [facility] Service Area Work Phone: Comment on above: Expected: 08/05/2023 (Approximate), Expires: 07/05/2024 Start: 08-01-2023 End: 08-01-2023 Patient encounter procedure 08/01/2023 1:00 PM EST Procedure Visit [facility] [address] [address] [facility] Start: 07-31-2023 Advance Directive Discussion Advance Directive Discussion [facility] Start: 07-31-2023 Depression Assessment Depression Ass essment [facility] Start: 07-23-2023 [facility] Start: 07-21-2023 Hospital admission [facility] Start: 07-21-2023 [facility] Start: 07-21-2023 [facility] Start: 03-31-2023 Covid-19 Vaccine ( season) Covid-19 Vaccine ( season) [facility] Start: 03-31-2023 COVID-19 Vaccine ( season) COVID-19 Vaccine ( season) [facility] Start: 03-31-2023 Influenza vaccination C [facility] Start: 02-10-2023 FUV, Provider: Edel Cesar, Status: Pen, Time: 10:00 AM FUV, Provider: Edel Cesar, Status: Pen, Time: 10:00 AM [facility] 250 DO Work Phone: Start: 01-11-2023 FUV, Provider: Edel Cesar, Status: Pen, Time: 3:00 PM FUV, Provider: Edel Cesar, Status: Pen, Time: 3:00 PM [facility] 250 DO Work Phone: Start: 12-13-2022 SURGNONUH, Provider: Edel Cesar, Status: Pen, Time: 11:00 AM SURGNONUH, Provider: Edel Cesar, Status: Pen, Time: 11:00 AM [facility] 250 DO Work Phone: Start: 12-13-2022 [facility] Start: 11-25-2022 FUV, Provider: Edel Cesar, Status: Pen, Time: 9:30 AM FUV, Provider: Edel Cesar, Status: Pen, Time: 9:30 AM [facility] 250 DO Work Phone: Start: 10-03-2022 WOUNDCLEO, Provider : NATALY TELLEZ CLOTH BRUSHING AND SUEDING SUPERVISOR 1,[id number], Status: Pen, Time: 10:30 AM WOUNDCLEO, Provider: NATALY TELLEZ CLOTH BRUSHING AND SUEDING SUPERVISOR 1,[id number], Status: Pen, Time: 10:30 AM [facility] 250 DO Work Phone: Start: 09-27-2022 End: 09-27-2022 [facility] Start: 09-26-2022 [facility] Start: 09-25-2022 Insertion of Pacemak er Lead into Right Atrium, Percutaneous Approach Insertion of Pacemaker Lead into Right Atrium, Percutaneous Approach [facility] Start: 09-25-2022 Insertion of Pacemak er Lead into Right Ventricle, Percutaneous Approach Insertion of Pacemaker Lead into Right Ventricle, Percutaneous Approach [facility] Start: 09-25-2022 Insertion of Pacemak er, Dual Chamber into Chest Subcutaneous Tissue and Fascia, Open Approach Insertion of Pacemaker, Dual Chamber into Chest Subcutaneous Tissue and Fascia, Open Approach [facility] Start: 09-25-2022 Referral to loan funder [facility] Start: 09-25-2022 Hospital admission [facility] Start: 09-07-2022 COVID-19 Vaccine (4 - Moderna series) COVID-19 Vaccine (4 - Moderna series) [facility] Start: 08-10-2022 FUV, Provider: Edel Ceasr, Status: Pen, Time: 9:20 AM FUV, Provider: Edel Cesar, Status: Pen, Time: 9:[address] [facility] 600 DO Work Phone: Start: 07-31-2022 ADVANCE DIRECTIVE DISCUSSION ADVANCE DIRECTIVE DISCUSSION [facility] Start: 07-31-2022 DEPRESSION ASSESSMENT DEPRESSION ASS ESSMENT [facility] Start: 03-31-2022 Influenza vaccination INFLUENZA (#1) [facility] Start: 12-29-2021 FUV, Provider: Edel Cesar, Status: Pen, Time: 9:40 AM FUV, Provider: Edel Cesar, Status: Pen, Time: 9:40 AM [facility] Work Phone: Start: 09-14-2021 COVID-19 VACCINE (4 - Booster for Moderna series) COVID-19 VACCINE (4 - Booster for Moderna series) [facility] Start: 09-14-2021 Covid-19 Vaccine (4 - Moderna series) Covid-19 Vaccine (4 - Moderna series) [facility] Start: 07-31-2021 ADVANCE DIRECTIVE DISCUSSION ADVANCE DIRECTIVE DISCUSSION [facility] Start: 07-31-2021 DEPRESSION ASSESSMENT DEPRESSION ASS ESSMENT [facility] Start: 12-31-2019 DIABETES SCREEN DIABETES SCREEN [facility] Start: 12-31-2019 Diabetes Screening Diabetes Screenin g [facility] Start: 2003 Pneumococcal Vaccine : 65+ (1 - PCV) Pneumococcal Vaccine: 65+ (1 - PCV) [facility] Start: 2003 PNEUMOCOCCAL: 65+ (1 - PCV) PNEUMOCOCCAL: 65+ (1 - PCV) [facility] Start: 1998 RSV Vaccine (1 - 1-d ose 60+ series) RSV Vaccine (1 - 1-dose 60+ series) [facility] Start: 1988 SHINGRIX VACCINE (1 of 2) SHINGRIX VACCINE (1 of 2) [facility] Start: 1988 Zoster Vaccines (1 of 2) Zoste r Vaccines (1 of 2) [facility] Start: 1957 Urine microalbumin profile [facility] Start: 1956 Diabetes mellitus screening Diabetes Screening [facility] Start: 1938 Lipid panel Lipid Panel [facility] Start: 1938 Medicare Annual Well ness Visit Medicare Annual Wellness Visit (AWV) [facility] Start: 1938 Thyroid stimulating hormone measurement TSH Level [facility] ECG 12 Lead ECG 12 Lead ECG Routine Persistent atrial fibrillation (CMS/HCC) 07/13/2023 1:48 PM EST [facility] Service Area Work Phone: Patient Education Atrial Fibrill ation (DC) [facility] Work Phone: Patient referral [facility] Work Phone: End: 11-23-2024 US Lower extremity vein - bilateral US DVT LOWER BILATERAL Radiology Routine Muscle pain Encounter for other preprocedural examination Pain in left leg 1 Occurrences starting 10/25/2023 until 11/23/2024 [facility] Work Phone: Comment on above: 1 Occurrences starti ng 10/25/2023 until 11/23/2024 End: 02-08-2025 US Lower extremity veins - bilateral US LEG VEIN DVT [facility] Lab Routine Leg pain, bilateral 1 Occurrences starting 02/09/2024 until 02/08/2025 [facility] Work Phone: Comment on above: 1 Occurrences starti ng 02/09/2024 until 02/08/2025 [facility] Immunizations Immunization Date Immunization Notes Care Provider Cullen ames 05-30-2023 influenza, high dose seasonal, preservative-free Christo Orellana MarioTimothy [facility] [place] 05-30-2023 influenza virus vaccine, unspecified formulation Efren Carbajal DO Work Phone: [facility] 07-13-2022 Moderna COVID-19 Biv al Booster 50 MCG/0.5ML Intramuscular Suspension Cesar Laguna Work Phone: [facility] Comment on above: Result Comment: 2022: [id number] 05-04-2022 Fluzone High-Dose Quadrivalent 0.7 ML Intramuscular Suspension Prefilled Syringe Cesar Luz Elena Work Phone: [facility] 250 DO Work Phone: 05-04-2022 influenza virus vaccine, unspecified formulation Efren Carbajal DO Work Phone: [facility] 07-20-2021 Moderna COVID-19 Vaccine 100 MCG/0.5ML Intramuscular Suspension Cesar Luz Elena Work Phone: [facility] Comment on above: Series: Result Comment: 2022: [id number] 07-03-2021 diphtheria, tetanus toxoids and pertussis vaccine Cesar [place] Work Phone: [facility] Work Phone: 07-03-2021 tetanus toxoid, redu mikal diphtheria toxoid, and acellular pertussis vaccine, adsorbed Edel Cesar MD Work Phone: [facility] Work Phone: 09-25-2020 Moderna COVID-19 Vaccine 100 MCG/0.5ML Intramuscular Suspension Cesar [place] Work Phone: [facility] Comment on above: Series: 08-28-2020 Moderna COVID-19 Vaccine 100 MCG/0.5ML Intramuscular Suspension Cesar Luz Elena Work Phone: [facility] Comment on above: Series: 05-27-2020 Fluad Quadrivalent 0 .5 ML Intramuscular Prefilled Syringe Cesar [place] Work Phone: [facility] Work Phone: 05-27-2020 influenza virus vaccine, unspecified formulation Christo Orellana [facility] 06-12-2019 influenza virus vaccine, unspecified formulation Christo Orellana [facility] 06-12-2019 influenza, high dose seasonal, preservative-free Cesar Luz Elena Work Phone: [facility] Work Phone: 06-12-2019 pneumococcal polysaccharide vaccine, 23 valent Cesar [place] Work Phone: [facility] 06-04-2018 influenza virus vaccine, unspecified formulation Christo Orellana [facility] 06-04-2018 Influenza, injectabl e, Madin Patricia Canine Kidney, preservative free, quadrivalent Cesar [place] Work Phone: [facility] Work Phone: 07-03-2017 influenza virus vaccine, unspecified formulation Christo Orellana [facility] 07-03-2017 influenza, high dose seasonal, preservative-free Cesar [place] Work Phone: [facility] Work Phone: 07-03-2017 pneumococcal conjuga te vaccine, 13 valent Cesar [place] Work Phone: [facility] 05-24-2013 influenza virus vaccine, unspecified formulation Christo Orellana [facility] 05-24-2013 influenza, seasonal, injectable Cesar Luz Elena Work Phone: [facility] Work Phone: 05-16-2009 influenza virus vaccine, whole virus Cesar [place] Work Phone: [facility] Work Phone: 05-16-2009 influenza, whole Christo Ross [facility] Payers Date Payer Category Payer Self-pay 2022 Unknown 2014 Private Health Insurance [facility] AARP SUPPLEMENT [id number] 2014-Present [phone] [address] [place] [address] Indemnity [id number] 2003 Medicare [id number] 1959 Medicare [id number] 1959 Unknown [id number] 2.16.840.1.263959.19 1938 Unknown [id number] 2.16.840.1.546433.3.579.2 .593 1938 Unknown [id number] 2.16.840.1.974881.3.579.2 .593 1938 Unknown [id number] 2.16.840.1.054597.3.579.2 .593 1938 Unknown [id number] 2.16.840.1.422777.3.579.2 .593 1938 Unknown [id number] 2.16.840.1.687729.3.579.2 .593 1938 Unknown [id number] 2.16.840.1.124330.3.579.2 .593 1938 Unknown [id number] 2.16.840.1.527320.3.579.2 .593 1938 Unknown [id number] 2.16.840.1.678746.3.579.2 .593 1938 Unknown [id number] 2.16.840.1.346412.3.579.2 .593 1938 Unknown [id number] 2.16.840.1.379413.3.579.2 .356 1938 Unknown [id number] 2.16.840.1.592811.3.579.2 .356 1938 Unknown [id number] 2.16.840.1.955593.3.579.2 .356 1938 Unknown [id number] 2.16.840.1.115444.3.579.2 .356 1938 Unknown [id number] 2.16.840.1.013302.3.579.2 .356 1938 Unknown [id number] 2.16.840.1.362744.3.579.2 .356 1938 Unknown [id number] 2..840.1.779804.3.579.2 .356 1938 Unknown [id number] 2.16.840.1.910321.3.579.2 .356 1938 Unknown [id number] 2.840.1.790919.3.579.2 .356 1938 Unknown [id number] 2.840.1.739158.3.579.2 .356 1938 Unknown [id number] 2.16840.1.286867.3.579.2 .356 1938 Unknown [id number] 2.16840.1.806180.3.579.2 .356 1938 Unknown [id number] 2.16840.1.301144.3.579.2 .356 1938 Unknown [id number] 2.16.840.1.989832.3.579.2 .356 1938 Unknown [id number] 2.16.840.1.412174.3.579.2 .1244 1938 Unknown [id number] 2.16.840.1.208375.3.579.2 .1244 1938 Unknown [id number] 2.16.840.1.844869.3.579.2 .1244 1938 Unknown [id number] 2.16.840.1.713155.3.579.2 .1244 1938 Unknown [id number] 2.16.840.1.394487.3.579.2 .1259 1938 Unknown [id number] 2.16.840.1.665915.3.579.2 .1259 1938 Unknown [id number] 2.16.840.1.902489.3.579.2 .1259 1938 Unknown [id number] 2.16.840.1.828042.3.579.2 .727 1938 Unknown [id number] 2.16.840.1.384750.3.579.2 .72 1938 Unknown [id number] 2.16.840.1.951287.3.579.2 .72 1938 Unknown [id number] 2.16.840.1.190584.3.579.2 .1938 Unknown [id number] 2.16.840.1.623541.3.579.2 .72 1938 Unknown [id number] 2.16.840.1.242889.3.579.2 .72 1938 Unknown [id number] 2.16.840.1.668457.3.579.2 .72 1938 Unknown [id number] 2.16.840.1.307114.3.579.2 .72 1938 Unknown [id number] 2.16.840.1.093484.3.579.2 .72 1938 Unknown [id number] 2.16.840.1.894126.3.579.2 .72 1938 Unknown [id number] 2.16.840.1.447898.3.579.2 .72 1938 Unknown [id number] 2.16.840.1.136698.3.579.2 .727 1938 Unknown [id number] 2.16.840.1.749454.3.579.2 .727 1938 Unknown [id number] 2.16.840.1.325967.3.579.2 .727 1938 Unknown [id number] 2.16.840.1.342533.3.579.2 .727 1938 Unknown [id number] 2.16840.1.595137.3.579.2 .727 1938 Unknown [id number] 2.16.840.1.089805.3.579.2 .727 Medicare Medicare Outpatient [id number] Unknown [facility] Claims [id number] Unknown [id number] 2.16840.1.426184.3.579.2 .531 Unknown [id number] 2.16840.1.149870.3.579.2 .531 Unknown [id number] 2.16840.1.789273.3.579.2 .531 Unknown [id number] 2.16840.1.225393.3.579.2 .531 Unknown [id number] 2.840.1.424053.3.579.2 .531 Unknown [id number] 2.16840.1.381397.3.579.2 .531 Unknown [id number] 2.16840.1.133911.3.579.2 .531 Social History Date Type Detail Facility Start: 06-21-2022 End: 08-15-2022 No illicit drug use No illicit drug use [facility] Start: 06-21-2022 End: 07-21-2023 Tobacco smoking status NHIS Ex-smoker [facility] History of tobacco use Current smoker [facility] History of tobacco use Cigarette Smoker C [facility] Start: 06-21-2022 End: 07-05-2023 Tobacco use and exposure Smokeless tobacco non-user [facility] Start: 06-21-2022 End: 02-09-2024 Alcohol intake Current non-drinker of alcohol (finding) [facility] Start: 06-21-2022 Tobacco Comment quit many yrs ago [facility] Start: 1940 Sex Assigned At Not on file C [facility] Start: 06-11-2022 End: 11-07-2023 Exposure to SARS-CoV-2 (event) Not sure [facility] Start: 09-26-2022 End: 09-26-2022 Tobacco smoking status NHIS Never smoked tobacco (finding) [facility] Start: 1940 Sex Assigned At Male F [facility] Start: 08-15-2022 End: 05-05-2023 Sex Assigned At [facility] Adult Depression Screening Assessment 0 [facility] Start: 07-05-2023 End: 11-07-2023 Alcohol intake Lifetime non-drinker (finding) [facility] Work Phone: Medical Equipment Procedure Code Equipment Code Equipment Origin al Text Equipment Identifier Dates Insertion, pacemaker Endocardial pacing lead [id number] FDA Start: 09-26-2022 Insertion, pacemaker Endocardial pacing lead [id number] FDA Start: 09-26-2022 Insertion, pacemaker Dual-chamber implantable pacemaker, rate-responsive [id number] FDA Start: 09-26-2022 Goals Date Patient Goal Desired Activity /State Functional Status Date Assessment Result Facility 07-23-2023 Functional status Patient at Baseline [facility] Work Phone: 07-21-2023 Functional status Patient Not at Baseline [facility] Work Phone: 09-27-2022 Functional status Patient at Baseline [facility] Work Phone: Mental Status Date Assessment Result Facility 07-23-2023 Cognitive function Cognitive Sta tus Patient at Baseline [facility] Work Phone: 07-21-2023 Cognitive function Cognitive Sta tus Patient at Baseline [facility] Work Phone: 09-27-2022 Cognitive function Cognitive Sta tus Patient is Progressing Toward Baseline [facility] Work Phone: Clinical Notes 06-24-2022 to 02-09-2024 Patient InstructionsEfren Carbajal DO - 02/09/2024 9:00 AM EDTTelephone Encounter - Martha Richmond - 02/07/2024 11:36 AM Jose Alfredo Cesar MD - 11/07/2023 3:30 PM EDT Note Date & Type Note Facility 02-09-2024 Instructions Efren Carbajal DO - 02/09/2024 9:23 AM EDT Medications 6 AM 10 AM 2 PM 6 PM 9PM Sinemet (carbidopa/levodopa) CR 50/200 1 1 1 0 2 Sinemet (carbidopa/levodopa) 25/100 2 2 2 2 0 Aricept (donepezil) 5mg x x x x 1 Miralax as needed Melatonin 15 mg x x x x x a. Take Sinemet 30 minutes before meals or 60 minutes after meals. Avoid taking this medication with high protein meals. b. If nausea develops, try taking Sinemet with crackers or bread. c. If nausea still persists, please call. Avoid taking anti-nausea medications before speaking with us. Avoid Reglan, Compazine or Phenergan. documented in this encounter [facility] 02-09-2024 Note HNO ID: [id number] Author: EFREN CARBAJAL DO Service: ? Author Type: Physician Type: Progress Notes Filed: 02/09/2024 09:25 Note Text: [facility] - FOLLOW UP EVALUATION Efren Carbajal [address] [facility] [address] Amy Zuñiga MD [address] [facility] [address] Magdaleno Valderrama is a 83 year old right-handed male with a history of right leg pain. He is seen with a son. Interval History Since Last Visit: He reports that he is weaker with walking - no recent falls. Biggest issue is right leg pain - burning pain. Patient notes area from 2/3 down thigh to just distal the knee. The left leg has no symptoms. He reports good and bad days. The pain will lighten with the Sinemet. There is worsening aqayrfpi-zy-aduw (FOG). .The patient denies any recent illness or infections. The patient denies any hospitalization since the [...] others. The patient denies any new pain. No prior use of gabapentin. There is a h/o peak-dose dyskinesias (levodopa-induced dyskinesias - LID) Parkinson's Medications Schedule: Medications 6 AM 10 AM 2 PM 6 PM 9PM Sinemet (carbidopa/levodopa) CR 50/200 1 1 1 0 2 Sinemet (carbidopa/levodopa) 25/100 1.5 1.5 1.5 1.5 0 Aricept (donepezil) 5mg x x x x 1 Miralax as needed Previous Parkinson's Medications: None Allergies: ALLERGIES Allergen Reactions Neosporin [Neomycin* Current Medications: Current Outpatient Medications Medication Sig carbidopa-levodopa (SINEMET 25-100) 25-100 mg per tablet Take 1.5 tablets of immediate release levodopa/carbidopa 25/100 mg at 6 AM, 10 AM, 2 PM, and 6 PM carbidopa-levodopa CR (SINEMET CR) 50-200 mg per tablet Take 1 tablet by mouth three times a day AND 2 tablets two times a day. [AM ANDBedtime]. donepezil (ARICEPT) 10 mg tablet Take 1 tablet by mouth once daily. Take 1 tablet by mouth daily. furosemide (LASIX) 40 mg tablet Take 1 tablet by mouth three times a day. ELIQUIS 5 mg tab(s) Take 5 mg by mouth twice daily. vit C/E/Zn/coppr/lutein/zeaxan (PRESERVISION AREDS-2 ORAL) Take by mouth. levothyroxine (SYNTHROID) 100 mcg tablet 1.5 tab on Mondays, one other 6 days. atorvastatin 20 mg tablet Take 20 mg by mouth once daily. Cholecalciferol, Vitamin D3, 25 mcg (1,000 unit) cap Take 1,000 Units by mouth once daily. cyanocobalamin(VITAMIN B-12 500 MCG TAB) Take one(1) tablet daily. allopurinol (ZYLOPRIM) 300 mg tablet Take 1 tablet by mouth once daily. No current facility-administered medications for this visit. Objective: Vital Signs: BP 134/79 Pulse 78 Ht 172.7 cm (5' 8 ) BMI 20.98 kg/m? General Medical Examination: General Description of Patient: Well appearing, comfortable and Thin Head:normocephalic, atraumatic Neck:No bruits, full range of movement, supple Cardiac: Regular rate and rhythm, no murmur Extremities: No leg edema, pulses intact, no rash or venous stasis changes. Pain on palpation to thigh. Neurological Exam Mental Status Awake and alert. Recent and remote memory are intact. Speech is normal. Language is fluent with no aphasia. Attention and concentration are normal. Fund of knowledge is appropriate for level of education. Cranial Nerves CN II to XII reported as normal . Motor No fasciculations present. Strength is 5/5 throughout all four extremities. There is 5/5 strength in bilateral upper and lower extremities distally with 4/5 bilateral strength in the arms and legs proximally. Suspect pain mediated - No focal weakness appreciated on examination. Sensory There is no evidence for a stocking-glove gradient in bilateral extremities. Dual simultaneous stimulation is intact. Reflexes Right Left Brachioradialis 2+ 2+ Biceps 2+ 2+ Triceps 2+ 2+ Hamstring 1+ 1+ Patellar 1+ 1+ Right pathological reflexes: Kailash's absent. Left pathological reflexes: Kailash's absent. Coordination Right: Azhdqv-yc-efeq normal. Rapid alternating movement normal.Left: Eqybgb-nk-tcpv normal. Rapid alternating movement normal. Gait Casual gait: Narrow stance. Reduced stride length. Freezing, hesitant and shuffling gait. Reduced right arm swing. Reduced left arm swing. The patient did require assistive devices to ambulate. Parkinson's Scales Performed: MDS-UPDRS Motor subscale condition of exam Medication Off/On/Naiive ON Time of UPDRS 0916 Time of Last Medication 0600 Last Medication Taken Sinemet CR; 1.5 Sinemet DBS Right DBS Left MDS-UPDRS Motor subscale scores Speech 2-Mild. Loss of mod (more content not included)... [facility] 02-09-2024 History of Presen t illness Narrative [facility] - FOLLOW UP EVALUATION Efren Jose Solomon [address] [facility] [address] Amy Zuñiga MD [address] [facility] [address] Magdaleno Valderrama is a 83 year old right-handed male with a history of right leg pain. He is seen with a son. Interval History Since Last Visit: He reports that he is weaker with walking - no recent falls. Biggest issue is right leg pain - burning pain. Patient notes area from 2/3 down thigh to just distal the knee. The left leg has no symptoms. He reports good and bad days. The pain will lighten with the Sinemet. There is worsening yosytayx-rk-jqkh (FOG). .The patient denies any recent illness or infections. The patient denies any hospitalization since the [...] others. The patient denies any new pain. No prior use of gabapentin. There is a h/o peak-dose dyskinesias (levodopa-induced dyskinesias - LID) Parkinson's Medications Schedule: Medications 6 AM 10 AM 2 PM 6 PM 9PM Sinemet (carbidopa/levodopa) CR 50/200 1 1 1 0 2 Sinemet (carbidopa/levodopa) 25/100 1.5 1.5 1.5 1.5 0 Aricept (donepezil) 5mg x x x x 1 Miralax as needed Previous Parkinson's Medications: None Allergies: ALLERGIES Allergen Reactions Neosporin [Neomycin* Current Medications: Current Outpatient Medications Medication Sig carbidopa-levodopa (SINEMET 25-100) 25-100 mg per tablet Take 1.5 tablets of immediate release levodopa/carbidopa 25/100 mg at 6 AM, 10 AM, 2 PM, and 6 PM carbidopa-levodopa CR (SINEMET CR) 50-200 mg per tablet Take 1 tablet by mouth three times a day AND 2 tablets two times a day. [AM &Bedtime]. donepezil (ARICEPT) 10 mg tablet Take 1 tablet by mouth once daily. Take 1 tablet by mouth daily. furosemide (LASIX) 40 mg tablet Take 1 tablet by mouth three times a day. ELIQUIS 5 mg tab(s) Take 5 mg by mouth twice daily. vit C/E/Zn/coppr/lutein/zeaxan (PRESERVISION AREDS-2 ORAL) Take by mouth. levothyroxine (SYNTHROID) 100 mcg tablet 1.5 tab on Mondays, one other 6 days. atorvastatin 20 mg tablet Take 20 mg by mouth once daily. Cholecalciferol, Vitamin D3, 25 mcg (1,000 unit) cap Take 1,000 Units by mouth once daily. cyanocobalamin(VITAMIN B-12 500 MCG TAB) Take one(1) tablet daily. allopurinol (ZYLOPRIM) 300 mg tablet Take 1 tablet by mouth once daily. No current facility-administered medications for this visit. Objective: Vital Signs: BP 134/79 Pulse 78 Ht 172.7 cm (5' 8 ) BMI 20.98 kg/m General Medical Examination: General Description of Patient: Well appearing, comfortable and Thin Head:normocephalic, atraumatic Neck:No bruits, full range of movement, supple Cardiac: Regular rate and rhythm, no murmur Extremities: No leg edema, pulses intact, no rash or venous stasis changes. Pain on palpation to thigh. Neurological Exam Mental Status Awake and alert. Recent and remote memory are intact. Speech is normal. Language is fluent with no aphasia. Attention and concentration are normal. Fund of knowledge is appropriate for level of education. Cranial Nerves CN II to XII reported as normal . Motor No fasciculations present. Strength is 5/5 throughout all four extremities. There is 5/5 strength in bilateral upper and lower extremities distally with 4/5 bilateral strength in the arms and legs proximally. Suspect pain mediated - No focal weakness appreciated on examination. Sensory There is no evidence for a stocking-glove gradient in bilateral extremities. Dual simultaneous stimulation is intact. Reflexes Right Left Brachioradialis 2+ 2+ Biceps 2+ 2+ Triceps 2+ 2+ Hamstring 1+ 1+ Patellar 1+ 1+ Right pathological reflexes: Kailash's absent. Left pathological reflexes: Kailash's absent. Coordination Right: Ugbuww-bc-sknr normal. Rapid alternating movement normal.Left: Cnrfsv-yv-gghp normal. Rapid alternating movement normal. Gait Casual gait: Narrow stance. Reduced stride length. Freezing, hesitant and shuffling gait. Reduced right arm swing. Reduced left arm swing. The patient did require assistive devices to ambulate. Parkinson's Scales Performed: MDS-UPDRS Motor subscale condition of exam Medication Off/On/Naiive ON Time of UPDRS 0916 Time of Last Medication 0600 Last Medication Taken Sinemet CR; 1.5 Sinemet DBS Right DBS Left MDS-UPDRS Motor subscale scores Speech 2-Mild. Loss [...] amplitude decrements midway in the 10-tap sequence. Finger Taps [...] midway in the task. Arm Movements Right 3-Moderate. a) more than 5 interruptions during the movement or at least one longer arrest (freeze) in ongoing movement, b) moderate slowing, c) the amplitude decrements starting after the 1st supination-pronation sequence. Arm Movements Left 3-Moderate. a) more than 5 interruptions during the movement or at least one longer arrest (freeze) in ongoing movement, b) moderate slowing, c) the amplitude decrements starting after the 1st supination-pronation sequence. Toe Taps Right 3-Moderate. a) more than 5 interruptions during the tapping movements or at least one longer arrest (freeze) in ongoing movement, b) moderate slowing, c) the amplitude decrements starting after the first tap. Toe Taps Left 3-Moderate. a) more than 5 interruptions during the tapping movements or at least one longer arrest (freeze) [...] after the first tap. Arise From Chair 2-Mild. Pushes self up from arms of chair without difficulty. Gait 3-Moderate. Requires an assistance device for safe walking (walking stick, walker) but not a person. Gait Freezing 3-Moderate. Freezes once during straight walking. Posture Stability 3-Moderate. Stands safely, but with absence of postural response, falls if not caught by examiner. Posture 2-Mild. Definite flexion, scoliosis or leaning to one side, but patient can correct posture to normal posture when asked to do so. Body Bradykinesia 2-Mild. Mild global slowness and poverty of spontaneous movements. [...] tremor. MDS-UPDRS Motor subscale totals Left Total 18 Right Total 18 Midline Total 21 Tremor Total / 10 2 PIGD Total / 3 9 Overall Total 57 % Change Compared to Last Filed Total Based on today's exam the patient is Eddi and Yahr stage 4 (Severe disability; still able to walk or stand unassisted). Assessment and Plan: Mr. Valderrama is a right-handed 83 year old male with parkinsonism with worsening gait 2/2 right knee pain. The knee pain is related to tendonitis. The following are the current problems noted and addressed during this visit: Leg pain, bilateral (primary encounter diagnosis) Primary parkinsonism (hcc) Abnormality of gait Tendonitis of knee, right Plan: US b/l leg (h/o left leg pain) r/o DVT Encouraged ice, rest and NSIADs for knee pain To address ypnbqchj-tk-weoq (FOG) - Sinemet IR will be increased O/W Continue current antiparkinsonian regimen as dosed. Return in about 6 months (around 08/11/2024). Medical decision making was high complexity due to patient's, multiple symptoms, advancing disease The total time spent on the patient care was 23 minutes with greater than 50% of the time spent on counseling regarding preparing to see the patient, shuq-cl-yztw patient care, completing clinical documentation, obtaining and/or reviewing separately obtained history, performing a medically appropriate examination, counseling and educating the patient/family/caregiver, ordering medications, tests, or procedures, and communicating results to the patient/family/caregiver. I tried to answer all of the patient's questions and concerns during this visit. Efren Carbajal DO Senior Staff Neurologist - [facility] documented in this encounter [facility] 02-07-2024 Telephone encounter Note Also needs Sinemet ER. [facility] 02-07-2024 Miscellaneous Notes Also needs Sinemet ER. [facility] requesting refill as follows: Last FUV Jul 2023 with [facility]. Requested Prescriptions Pending Prescriptions Disp Refills carbidopa-levodopa (SINEMET 25-100) 25-100 mg per tablet 540 tablet 3 Sig: Take 1.5 tablets of immediate release levodopa/carbidopa 25/100 mg at 6 AM, 10 AM, 2 PM, and 6 PM Upon approval, script will be sent electronically to the patient's pharmacy. Martha Soria, Information Technology Director III documented in this encounter [facility] 02-07-2024 Telephone encounter Note [facility] requesting refill as follows: Last FUV Jul 2023 with [facility]. Requested Prescriptions Pending Prescriptions Disp Refills carbidopa-levodopa (SINEMET 25-100) 25-100 mg per tablet 540 tablet 3 Sig: Take 1.5 tablets of immediate release levodopa/carbidopa 25/100 mg at 6 AM, 10 AM, 2 PM, and 6 PM Upon approval, script will be sent electronically to the patient's pharmacy. Martha Soria, Information Technology Director III [facility] 11-07-2023 History of Presen t illness Narrative Subjective Magdaleno Valderrama is a 83 y.o. male Chief Complaint Follow-up HPI Patient is here for follow-up continue management for atrial fibrillation, complete heart block, hyperlipidemia. Since last time I saw him he underwent cardioversion which was successful. Following that the patient reported few weeks later he was at [facility] for quite an blood infection . He apparently treated and improved he was in rehab for a while. Currently he appears to be in AV sequential paced rhythm. He has lost some weight. He has no edema. He denies chest pain. Assessment 1. Atrial fibrillation status post cardioversion remain in AV sequential paced rhythm 2. complete heart block and severe bradycardia status post dual-chamber pacemaker implantation 3. 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 Hypothyroidism on replacement therapy 5. Abnormal echocardiogram moderate to severe left atrial dilatation and mild to moderate mitral regurgitation but preserved LV systolic function there is evidence of pulmonary hypertension 6. Hyperlipidemia on atorvastatin 7. Recent presentation with volume depletion medication was adjusted and he improved patient had been flecainide. He had no coronary artery disease and had normal LV systolic function. 8. Parkinson disease 9. Mild to moderate pulmonary hypertension with PA pressure around 45 we will continue to monitor and consider repeating echo down the road Plan 1. Will try to retrieve his recent hospitalization record from [facility] 2. I advised him to monitor for his weight and volume status and notify me with changes 4. I reviewed his recent device check 5. I reviewed his recent lab work with him 6. I will see him back in 4 months Review of Systems All other systems reviewed and are negative. Vitals: 11/07/23 1541 BP: 102/62 BP Location: Left arm Patient Position: Sitting Pulse: 78 Weight: 64.4 kg (142 lb) Height: 1.727 m (5' 8 ) EKG done in office today Objective Physical Exam Constitutional: Appearance: Normal appearance. HENT: Nose: Nose normal. Neck: Vascular: No carotid bruit. Cardiovascular: Rate and Rhythm: Normal rate. Pulses: Normal pulses. Heart sounds: Normal heart sounds. Pulmonary: Effort: Pulmonary effort is normal. Abdominal: General: Bowel sounds are normal. Palpations: Abdomen is soft. Musculoskeletal: General: Normal range of motion. Cervical back: Normal range of motion. Right lower leg: No edema. Left lower leg: No edema. Skin: General: Skin is warm and dry. Neurological: General: No focal deficit present. Mental Status: He is alert. Psychiatric: Mood and Affect: Mood normal. Behavior: Behavior normal. Thought Content: Thought content normal. Judgment: Judgment normal. Allergies Bacitracin zinc-polymyxin b and Neosporin moisturizing [colloidal oatmeal] Current Medications Current Outpatient Medications: atorvastatin (Lipitor) 20 mg tablet, Take 1 tablet (20 mg) by mouth once daily at bedtime., Disp: , Rfl: carbidopa-levodopa (Sinemet CR) 50-200 mg ER tablet, Take 2 tablets by mouth once daily., Disp: , Rfl: donepezil (Aricept) 10 mg tablet, Take 1 tablet (10 mg) by mouth once daily at bedtime., Disp: , Rfl: Eliquis 5 mg tablet, TAKE 1 TABLET BY MOUTH TWICE A DAY, Disp: 180 tablet, Rfl: 3 flecainide (Tambocor) 50 mg tablet, Take 1 tablet (50 mg) by mouth 2 times a day., Disp: 60 tablet, Rfl: 11 furosemide (Lasix) 40 mg tablet, Take 1 tablet (40 mg) by mouth once daily., Disp: 90 tablet, Rfl: 3 levothyroxine (Synthroid, Levoxyl) 100 mcg tablet, Take 1 tablet (100 mcg) by mouth. 6 days a week, no Mondays, Disp: , Rfl: levothyroxine (Synthroid, Levoxyl) 50 mcg tablet, Take 1 tablet (50 mcg) by mouth 1 (one) time per week. Mondays, Disp: , Rfl: Assessment/Plan 1. Persistent atrial fibrillation (CMS/HCC) Follow Up In Cardiology Follow Up In Cardiology ECG 12 Lead 2. Complete heart block (CMS/HCC) Follow Up In Cardiology 3. Chronic right heart failure (CMS/HCC) Follow Up In Cardiology 4. Pulmonary hypertension (CMS/HCC) 5. Pacemaker 6. Abnormal echocardiogram 7. Anticoagulated 8. BMI 26.0-26.9,adult 9. Former smoker Scribe Attestation By signing my name below, Katt Fernando LPN, Scribe attest that this documentation has been prepared under the direction and in the presence of Edel Cesar MD. Provider Attestation - Scribe documentation All medical record entries made by the Scribe were at my direction and personally dictated by me. I have reviewed the chart and agree that the record accurately reflects my personal performance of the history, physical exam, discussion and plan. documented in this encounter [facility] Work Phone: 11-07-2023 Instructions Katt Fabian LPN - 11/07/2023 3:30 PM EDT Please bring all medicines, vitamins, and herbal supplements with you when you come to the office. Prescriptions will not be filled unless you are compliant with your follow up appointments or have a follow up appointment scheduled as per instruction of your physician. Refills should be requested at the time of your visit. Fall Prevention Education Given. BMI was above normal measurement. Current weight: 64.4 kg (142 lb) Weight change since last visit (-) denotes wt loss -8 lbs Weight loss needed to achieve BMI 25: -22.1 Lbs Weight loss needed to achieve BMI 30: -54.9 Lbs Provided instructions on dietary changes. 4 months documented in this encounter [facility] Work Phone: 11-03-2023 Note [id number]#[id number] [facility] 10-30-2023 Note [id number]#[id number] [facility] 09-08-2023 Miscellaneous Notes Form was printed with clarification completed per Dr. Carbajal, for Sinemet CR 50-200 mg and faxed back to [facility]. Fax request to clarify C/L CR can be found in scanned docs. documented in this encounter [facility] 08-29-2023 Note HNO ID: [id number] Author: EFREN CARBAJAL, DO Service: ? Author Type: Physician Type: Progress Notes Filed: 09/04/2023 23:56 Note Text: VIRTUAL VISIT PROGRESS NOTE This is a virtual visit using OneTokom Video Visit. It required patient-provider interaction for the medical decision making as documented below. I have communicated my name and active licensure. The patient's identity and physical location were verified at the time of this visit. Either the patient or their legal account retention representative has been informed of the risks [...] which included preparing to see the patient, gdiu-sd-lqen patient care, completing clinical documentation, obtaining and/or reviewing separately obtained history, performing a medically appropriate examination, counseling and educating the patient/family/caregiver, and ordering medications, tests, or procedures Efren Carbajal DO [facility] 08-29-2023 Instructions Efren Carbajal DO - 08/29/2023 [...] x x x documented in this encounter [facility] 08-29-2023 History of Presen t illness Narrative VIRTUAL VISIT PROGRESS NOTE This is a virtual visit using Autoquakehart Zoom Video Visit. It required patient-provider interaction for the medical decision making as documented below. I have communicated my name and active licensure. The patient's identity and physical location were verified at the time of this visit. Either the patient or their legal account retention representative has been informed of the risks [...] which included preparing to see the patient, keis-ry-wcry patient care, completing clinical documentation, obtaining and/or reviewing separately obtained history, performing a medically appropriate examination, counseling and educating the patient/family/caregiver, and ordering medications, tests, or procedures Efren Carbajal DO documented in this encounter [facility] 07-22-2023 Progress note Note Date/Time July 22, 2023 10:57am [facility] [address] [place] [address] Hospitalist Progress Note Signed with Chandler Patient: Magdaleno Valderrama MR#: [id number] : 1940 Acct:[id number] Age/Sex: 83 / M Adm Date: 3 Loc: 3T Room: [address] [place] [address] Type: ADM IN Attending Dr: Ashwini Clancy [...] By: <Electronically signed by Ashwini Clancy MD> 07/22/23 1348 Date of Service: 07/22/2023 Subjective Subjective Narrative: [...] 09/25/22 12:07) Unknown Reaction neomycin [From Neosporin (ney-sfo-ggzph)] Allergy (Verified 09/25/22 12:07) Blister polymyxin B [From Neosporin (pdg-nmr-zgtad)] Allergy (Verified 09/25/22 12:07) Blister Active Meds: Active Medications Generic Name Dose Route Start Last Admin Trade Name Freq PRN Reason Stop Dose Admin Acetaminophen 650 [...] 1,000 Ml IV 07/20/24 18:14 75 mls/hr .[id number] ROB Administration Levothyroxine Sodium 100 mcg 07/22/23 [...] Documented By: Yuliana Leiva MD, RES 07/22/23 099 8 Signed By: <Electronically signed by MD CANDIDO Leiva> 07/22/23 1057 <Electronically signed by Ashwini Clancy MD> 07/22/23 1347 [facility] Work Phone: [phone] History and physical note Author Ashwini Clancy [facility] July 21, 2023 6:20pm Note Date/Time July 21, 2023 3:58pm [facility] [address] [place] [address] Hospitalist H&P Signed with Addenda Patient: Magdaleno Valderrama MR#: [id number] : 1940 Acct:[id number] Age/Sex: 83 / M Adm Date: 3 Loc: Room: [address] [place] [address] Type: ADM IN Attending Dr: Ashwini Clancy MD Copies to: MD Yuliana Holly MD, RES Christo Orellana MD~ ADDENDUM1 Patient was personally seen by [...] negative unless noted below or in HPI [facility] Medical History (Updated 07/21/23 @ 16:00 by David Reis PA-C) Afib Parkinson disease Sleep apnea Surgical History AICD (automatic cardioverter/defibrillator) present Social History Smoking Status: Former smoker Tobacco Type: cigarettes Substance Use Type: None Meds Medications and Allergies Allergies bacitracin Allergy (Verified 09/25/22 12:07) Unknown Reaction haloperidol [From Haldol] Allergy (Verified 09/25/22 12:07) Unknown Reaction neomycin [From Neosporin (itw-iox-lkgbp)] Allergy (Verified 09/25/22 12:07) Blister polymyxin B [From Neosporin (dzp-vwy-rdlgl)] Allergy (Verified 09/25/22 12:07) Blister Home Medications [...] PO DAILY 12/12/22 [History Confirmed 07/21/23] vitamins A,C,B-cnfo-ffaert 2,148 mcg-113 mg-45 mg-17.4 mg tablet (PreserVision [...] % (Auto) 14.3 % (.) 07/21/23 12:03 Toole % (Auto) 9.5 % (.) 07/21/23 12:03 Eos % (Auto) 0.6 % (.) 07/21/23 12:03 Baso % (Auto) 0.5 % (.) 07/21/23 12:03 Nucleat RBC Rel Count 0.1 /100 WBC (0-0.5) 07/21/23 12:03 Neut # (Auto) 5.8 x10E3/uL (1.8-7.7) 07/21/23 12:03 Lymph # (Auto) 1.1 x10E3/uL (1.00-4.8) 07/21/23 12:03 Toole # (Auto) 0.7 x10E3/uL (0.0-0.8) 07/21/23 12:03 [...] pH 5.5 (5.0-9.0) 07/21/23 12:20 Ur Specific Calvert 1.011 (1.001-1.030) 07/21/23 12:20 Urine Protein Negative [...] signed by Ashwini Clancy MD> 07/21/23 1818 [facility] Work Phone: [phone]) 665-494812-22-2023 NoteHNO ID: [id number] Author: Joycelyn Francisco RPh Service: ? Author Type: Pharmacist Type: Progress Notes Filed: 07/21/2023 1:23 PM Note Text: [facility] Discontinuation Assessment: Disease group: Neurology Medication: INBRIJA 42 MG CAPSULE WITH INHALATION DEVICE Discontinue reason: Side effect intolerance [facility]celyn [facility] History of Present illness Narrative* Trung Lopez [...] m (5' 8 ) [facility] Work Phone: [phone]) 815-379412-14-2023 Miscellaneous Notes* Telephone Encounter - Martha Richmond [...] electronically to the patient's pharmacy. Martha Soria, Information Technology Director III documented in [facility]12-11-2023 Miscellaneous Notes* Telephone Encounter - Martha Richmond - 07/10/2023 2:26 PM EST Son requesting refill as follows: Last [facility] May 2023 with [facility] Requested Prescriptions Pending Prescriptions Disp Refills donepezil (ARICEPT) 5 mg tablet 30 tablet 11 Sig: Take 1 tablet by mouth daily. Upon approval, script will be sent electronically to the patient's pharmacy. Martha Soria, Information Technology Director III documented in this encounterW[facility]12-06-2023 History of Present illness Narrative* Edel [...] Follow Up In Cardiology documented [facility] Work Phone: [phone]) 563-128512-06-2023 Instructions* Patient Instructions* Katt Fabian LPN - [...] 50 mg one tablet two times daily EKG-Jarrett 4 month follow up [facility] Work Phone: 1([phone]) 457-790211-27-2023 NoteHNO ID: [id number] Author: Ebony Miller Service: ? Author Type: ? Type: Progress Notes Filed: 06/26/2023 8:58 AM Note Text: [facility] received prescription(s) for Inbrija from Dr. Efren Carbajal's office. Benefits investigation was conducted, indicating that a prior authorization is required. BERE was approved with details listed below: Plan Name: OptumRx BERE reference number: [id number] Approval Dates: through 07/30/2023 Copay is high [...] time. Patient will be referred to BMSPAF ([employer]) Assistance Program. Note will be update once pt is contacted. Ebony Miller CPhT Cardiology, Neurology AND Infectious Disease [facility]23 NoteHNO ID: [id number] Author: Lars Sebastian RPh Service: ? Author Type: Pharmacist Type: Progress Notes Filed: 06/27/2023 2:06 PM Note Text: [facility] received prescription(s) for Inbrija from Dr. Carbajal's office. Benefits investigation was conducted, indicating that a prior authorization is required. 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) 04/23/2009 Aycinena, Gabriel R No Fatigue 04/23/2009 Aycinena, Gabriel R No Constipation 04/23/2009 Aycinena, Gabriel R No 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: Yes Med/dose confirmed: Yes Supplies needed: Welcome packet Copay amount: 850.31 Copay form of payment: Credit card on file Payment confirmed: Yes Delivery method: FedEx Signature required: No Delivery address: [address] [place] [address]; [place] [address] Delivery date: 06/29/23 [facility] Visit Assessment - Neurology: Assessment to use: Initial Vaccination Assessment: Annual influenza vaccination reminder: Yes Date of influenza vaccination reminder: 06/27/2023 Vaccination assessment completed: Yes Date of most recent vaccination assessment: 06/27/2023 Treatment Plan Information: Treatment Plan Information: Magdaleno Valderrama starting Inbrija Indication is Parkinson's Disease Dosing checked and meets spinning room worker guidelines The dose of INBRIJA is 2 [...] provided, patient was also encouraged to call Asurvest (0.671SociaLive) or visit ClearAccess for resources including access to medical experts [...] provided, patient was also encouraged to call Asurvest (6.801SociaLive) or visit ClearAccess for resources including access to medical experts [...] intended outcome of therapy: Yes Lars Sebastian [facility]11-27-2023 History of Present illness Narrative* Ebony Miller - 06/26/2023 7:42 AM EST [facility] received prescription(s) for Inbrija from Dr. Efren Carbajal's office. Benefits investigation was conducted, indicating that a prior authorization is required. BERE was approved with details listed below: Plan Name: OptumRx DC reference number: [id number] Approval Dates: through 07/30/2023 Copay is high [...] this time. Patient will be referred to FRM Study CoursePAF ([employer]) Assistance Program. Note will be update once pt is contacted. Ebony Miller CPhT Cardiology, Neurology & Infectious Disease [facility] documented in this encounterWvumedicine [facility]11-21-2023 NoteHNO ID: [id number] Author: Efren Carbajal, DO Service: ? Author Type: Physician Type: Progress Notes Filed: 06/20/2023 2:42 PM Note Text: VIRTUAL VISIT PROGRESS NOTE This is a virtual visit using OneTokom Video Visit. It required patient-provider interaction for the medical decision making as documented below. I have communicated my name and active licensure. The patient's identity and physical location were verified at the time of this visit. Either the patient or their legal account retention representative has been informed of the risks [...] which included preparing to see the patient, fzfw-mf-cuvm patient care, completing clinical documentation, obtaining and/or reviewing separately obtained history, counseling and educating the patient/family/caregiver, ordering medications, tests, or procedures, communicating with other HCPs (not separately (more content not included)...[facility]11-21-2023 Instructions* Patient Instructions* Efren Carbajal DO - 06/20/2023 2:40 PM EST Medications [...] up to 5x daily documented in this encounterW[facility]11-21-2023 History of Present illness Narrative* Efren Carbajal DO - 06/20/2023 2:22 PM EST VIRTUAL VISIT PROGRESS NOTE This is a virtual visit using Clue App Video Visit. It required patient- provider interaction for the medical decision making as documented below. I have communicated my name and active licensure. The patient's identity and physical location wereverified at the time of this visit. Either the patient or their legal account retention representative has been informed of the risks [...] which included preparing to see the patient, fndo-hw-lbys patient care, completing clinical documentation, obtaining and/or reviewing separately obtained history, counseling and educating the patient/family/caregiver, ordering medications, hitesh ts, or procedures, communicating with other HCPs (not separately reported), and communicating results to the patient/family/caregiver Efren Carbajal DO documented in this encounterW[facility]10-06-2023 NoteHNO ID: [id number] Author: Efren Carbajal DO Service: ? Author Type: Physician Type: Progress Notes Filed: 05/05/2023 12:37 PM Note Text: [facility] - FOLLOW UP EVALUATION Amy Zuñiga MD [address] [place] [id number] Magdaleno Valderrama is a 82 year old [...] He goes to a PD class in [place] 3x weekly. He has more difficulty getting [...] Left pathological reflexes: Kailash's absent. Coordination Right: Tqitef-nc-smrq normal. Rapid alternating movement normal.Left: Yjqjej-ev-kfcz normal. Rapid alternating movement normal. Gait Casual [...] motion is easily achieved. (more content not included)...[id number] History of Present illness Narrative* Efren Carbajal, - 05/05/2023 11:14 AM EDT [facility] - FOLLOW UP EVALUATION Amy Zuñiga MD [address] [facility] [address] Magdaleno Valderrama is a 82 year old [...] He goes to a PD class in [place] 3x weekly. He has more difficulty getting [...] Left pathological reflexes: Kailash's absent. Coordination Right: Iaotmh-ye-ppja normal. Rapid alternating movement normal.Left: Krfmfa-ph-lokn normal. Rapid alternating movement normal. Gait Casual [...] counseling regarding preparing to see the patient, jeak-zc-mujp patient care, completing clinical documentation, obtaining and/or reviewing separately obtained history, performing a medically appropriate examination, counseling and educating the patient/family/caregiver, ordering medications, tests,or procedures, and communicating results to the patient/family/caregiver. I tried to answer all of the patient's questions and concerns during this visit. Efren Carbajal DO Senior Staff Neurologist - [facility] documented in this encounterW[facility]07-24-2023 Evaluation + Plan note Future Scheduled Tests Laboratory* TSH With T4fr Reflex 02/20/23 [facility]07-03-2023 Miscellaneous Notes* Telephone Encounter - Kacie [...] 6 PM Kacie Pedroza documented in this encounterWvumedicine [facility]05-16-2023 Procedure [facility]05-03-2023 Instructions* Patient Instructions* Efren Carbajal DO [...] up to 5x daily documented in this encounterWvumedicine [facility]05-03-2023 NoteHNO ID: [id number] Author: Rhoda Romero Service: ? Author Type: ? Type: Progress Notes Filed: 11/30/2022 1:02 PM Note Text: [facility] received prescription(s) for Inbrija from Dr. Villavicencio's office. Benefits investigation was conducted, indicating that a prior authorization is required. PA was approved with details listed below: Plan Name: Optum Medicare PA reference number: [id number] Approval Dates: 06/29/22 - 07/30/23 First copay [...] be update once pt is contacted. Rhoda Romero [facility] P: [phone] F: [phone]05-03-2023 NoteHNO ID: [id number] Author: Rhoda Romero Service: ? Author Type: ? Type: Progress Notes Filed: 12/01/2022 2:05 PM Note Text: Spoke to Cristian Valderrama (son) regarding affordability for Inbrija, as patient's copay is high. There are no current grants for their diagnosis. [employer] will now refer patient to the spinning room worker Patient Assistance Program. Discussed eligibility for the BMSPAF ([employer]) Patient Assistance Program, and pt meets the [...] where indicated and return via e-mail to [email or web address]. Rhoda Romero [facility] P: [phone] F: [phone] [facility]05-02-2023 NoteHNO ID: [id number] Author: Efren Carbajal, DO Service: ? Author Type: Physician Type: Progress Notes Filed: 11/30/2022 9:24 PM Note Text: VIRTUAL VISIT PROGRESS NOTE This is a virtual visit using ProductBio video visit. It required patient-provider interaction for the medical decision making as documented below. I have communicated my name and active licensure. The patient's identity and physical location were verified at the time of this visit. Either the patient or their legal account retention representative has been informed of the risks [...] which included preparing to see the patient, gork-nw-lglk patient care, completing clinical documentation, obtaining and/or reviewing separately obtained history, counseling and educating the patient/family/caregiver, ordering medications, tests, or procedures, communicating results to the patient/family/caregiver, and care coordination (not separately reported) Efren Carbajal, [facility]05-02-2023 History of Present illness Narrative* Efren Carbajal, DO - 11/29/2022 3:04 PM EDT VIRTUAL VISIT PROGRESS NOTE This is a virtual visit using ProductBio video visit. It required patient-provider interaction for themedical decision making as documented below. I have communicated my name and active licensure. The patient's identity and physical location wereverified at the time of this visit. Either the patient or their legal account retention representative has been informed of the risks [...] which included preparing to see the patient, pjow-xf-okmj patient care, completing clinical documentation, obtaining and/or reviewing separately obtained history, counseling and educating the patient/family/caregiver, ordering medications, hitesh ts, or procedures, communicating results to the patient/family/caregiver, and care coordination (not separately reported) Efren Carbajal DO documented in this encounterWvumedicine [facility]04-25-2023 NoteHNO ID: [id number] Author: Efren Carbajal DO Service: ? Author Type: Physician Type: Progress Notes Filed: 11/22/2022 4:37 PM Note Text: Left message on identified VM to call back This patient did not show up for this appointment. Efren Carbajal DO Senior Staff Neurologist - Movement [facility] Neurological [facility]04-25-2023 History of Present illness Narrative* Efren Carbajal DO - 11/22/2022 4:35 PM EDT Left message on identified VM to call back This patient did not show up for this appointment. Efren Carbajal DO Senior Staff Neurologist - Movement [facility] documented in this encounterWvumedicine [facility]04-07-2023 History of Present illness Narrative* Patient is here for follow-up from recent hospitalization. He recently presented with complete heart block and bradycardia. He underwent dual-chamber placement. Since his discharge the patient appears to remain in atrial fibrillation. He reports over the last few weeks he developed significant lower extremity edema and scrotal edema. He was in [facility]. Record is not available to me. [...] to retrieve his recent ER visit from [place] * 4. I recommended to proceed with cardioversion and hope that with a improve his heart failure symptomatology. We will do a full basic metabolic profile prior to cardioversion * 5. I will see him back in the office in 3 to 4 months after cardioversion -[facility] [address] DO Work Phone: [phone] NoteHNO ID: [id number] Author: Efren Carbajal, DO Service: ? Author Type: Physician Type: Progress Notes Filed: 10/20/2022 4:19 PM Note Text: [facility] - FOLLOW UP EVALUATION Efren Carbajal [address] [facility] [address] Amy Zuñiga MD [address] [facility] [address] Magdaleno Valderrama is a 82 year old [...] Left pathological reflexes: Kailash's absent. Coordination Right: Pqspjk-ie-lxyh normal. Rapid alternating movement normal.Left: Nyfove-hq-scto normal. Rapid alternating movement normal. Gait Casual [...] postural instability; physically independe (more content not included)...[facility]03-08-2023 Evaluation note* Encounter Date Diagnosis Assessment Notes [...] intermittent pacemaker checks in addition to his loan funder visits which are currently scheduled. [facility] Other 02-28-2023 Progress note Author Edel Cesar [facility] September 27, 2022 9:48am Note Date/Time September 27, 2022 9:46am [facility] [address] [place] [address] Cardiology Progress Note Signed Patient: Magdaleno Valderrama MR#: [id number] : 1940 Acct:[id number] Age/Sex: 82 / M Adm Date: 3 Loc: Room: [address] [place] [address] Type: ADM IN Attending Dr: Jordan Gallegos [...] % (Auto) 76.3 Lymph % (Auto) 11.6 Toole % (Auto) 10.3 Eos % (Auto) 1.5 Baso % (Auto) 0.3 Nucleat RBC Rel Count 0.0 Neut # (Auto) 6.0 Lymph # (Auto) 0.9 L Toole # (Auto) 0.8 Eos # (Auto) 0.1 [...] signed by MD Edel Cesar> 09/27/22 0948 [facility] Work Phone: 1([phone]) 320-561602-27-2023 Progress note Author Jordan Gallegos [facility] September 26, 2022 7:27pm Note Date/Time September 26, 2022 7:28pm [facility] [address] [place] [address] Hospitalist Progress Note Signed Patient: Magdaleno Valderrama MR#: [id number] : 1940 Acct:[id number] Age/Sex: 82 / M Adm Date: 3 Loc: Room: [address] [place] [address] Type: ADM IN Attending Dr: Jordan Gallegos [...] 09/25/22 12:07) Unknown Reaction neomycin [From Neosporin (thi-vry-fwxnk)] Allergy (Verified 09/25/22 12:07) Blister polymyxin B [From Neosporin (izh-tjp-dzegk)] Allergy (Verified 09/25/22 12:07) Blister Active Meds: [...] <Electronically signed by Jordan Gallegos DO> 09/26/221926 [facility] Work Phone: 1(962) 473-354202-26-2023 Consult note Author Roel Mireles [facility] September 25, 2022 1:46pm Note Date/Time September 25, 2022 1:46pm [facility] [address] [place] [address] Cardiology Consult Note Signed Patient: Magdaleno Valderrama MR#: [id number] : 1940 Acct:[id number] Age/Sex: 82 / M Adm Date: 3 Loc: Room: 5K1348-9 Type: ADM IN Attending Dr: Jordan Gallegos [...] which she sees an neurologist at the [facility]. An echocardiogram performed 2 years ago [...] 09/25/22 12:07) Unknown Reaction neomycin [From Neosporin (tsz-zwx-vkejh)] Allergy (Verified 09/25/22 12:07) Blister polymyxin B [From Neosporin (pxo-tmx-erdbu)] Allergy (Verified 09/25/22 12:07) Blister Home Medications [...] signed by MD Roel Mireles> 09/25/22 1346 [facility] Work Phone: 1(565) 260-926202-26-2023 History and physical note Author Jordan Gallegos [facility] September 25, 2022 1:23pm Note Date/Time September 25, 2022 12:49pm [facility] [address] [place] [address] Hospitalist H&P Signed Patient: Magdaleno Valderrama MR#: [id number] : 1940 Acct:[id number] Age/Sex: 82 / M Adm Date: 3 Loc: Room: [address] [place] [address] Type: ADM IN Attending Dr: Jordan Gallegos [...] definitive heart block. On arrival here at [facility] he has heart rate in the high [...] 09/25/22 12:07) Unknown Reaction neomycin [From Neosporin (vlf-yyl-ammwr)] Allergy (Verified 09/25/22 12:07) Blister polymyxin B [From Neosporin (jhc-bau-ptbsg)] Allergy (Verified 09/25/22 12:07) Blister Home Medications [...] signed by Jordan Gallegos DO> 09/25/22 1323 [facility] Work Phone: 1(448) 423-148601-30-2023 Miscellaneous Notes* Telephone Encounter - Ayanna Tong, Research Coordinator - 08/29/2022 12:[address] Carbajal's request, I spoke to Mr. Magdaleno Valderrama and his son Cristian today to give them someinformation on the [employer] that is run by the [employer] for folks who would like to donate their brains to a program that focuses on neurodegenerative disorders. I emailed the info to Cristian, at their request. Ayanna Tong, Research Coordinator documented in this encounterW[facility]01-19-2023 Miscellaneous Notes* Telephone Encounter - Sherry Worley RN - 08/18/2022 3:15 PM EST Faxed 06/21/22 office notes w/ med list. Sherry Worley RN * Telephone Encounter - [facility]mie Turpin - 08/17/2022 1:05 PM EST [...] suffice as well. cell documented in this encounterW[facility]11-29-2022 Miscellaneous Notes* Telephone Encounter - Efren [...] you don't reach patient) documented in this encounterWvumedicine [facility]11-25-2022 History of Present illness Narrative* Rhoad Romero - 06/24/2022 8:22 AM EST [facility] received prescription(s) for Inbrija from Dr. Uriarte's office.Benefits investigation was conducted, indicating that a prior authorization is required by patient's insurance plan with Medicare [employer]. Encounter will be updated once prior authorization has been submitted by [facility]. Rhoda Romero [facility] P: [phone] F: [phone] documented in this encounterWvumedicine [facility] HospitalChief complaint Narrative - Reported MAGDALENO VALDERRAMA is being seen for a consultation for Jaun.[facility] Work Phone: Discharge summary Author Jordan Gallegos [facility] September 29, 2022 5:18pm Note Date/Time September 29, 2022 5:18 pm [facility] [address] [place], [place] [id number] Discharge Summary Signed Patient: Magdaleno Valderrama MR#: [id number] : 1940 Acct:[id number] Age/Sex: 82 / M Adm Date: 3 Loc: Room: [address] [place] [address]: Jordan Gallegos DO Copies to: MD Jordan Noriega, ~ Providers Date of Discharge: 09/27/22 Discharging Provider: Jordan Gallegos Primary Care Provider: Amy Zuñiga Consults: 09/25/22 12:40 Consult to Cardiology Routine 09/27/22 14:04 KRISTIN [[facility] Transition of Care Referral] Routine Discharge Diagnosis [...] prompting him to be transferred here to [facility]. On arrival he is in A- fib [...] with nurse for incision check in the [facility] on 10/03/2022 at 10:30am. 2. Chest x-ray to be done the same day as pacemaker check at [facility]12/29/2022. 3. Pacemaker/ICD clinic appointment at [facility] 12/29/2022 at 10:00am. 4. Office visit with Dr. Cesar at [facility] in [place] on 01/11/2023 at 3:00pm. [] Instructions: Atrial [...] Tablet 81 mg PO DAILY Follow Up: [facility] Transitions of Care [Outside] - 10/05/22 12:45 pm (You have been referred to the [facility] ([facility]) for a post discharge education visit because you have one or more conditions that have been associated with a moderate to high risk of complications that may increase the likelihood that you will be readmitted to the hospital again in the near future. .? Address:? [address] [place] [address], [address] NOTE:? PLEASE BRING ALL OF YOUR MEDICATION [...] <Electronically signed by Jordan Gallegos DO> 09/29/22 171 [facility] Work Phone: Evaluation + Plan note Future Appointments Appointment Date:03/07/2024 02:45:00 PM Scheduled Provider:Christo Orellana MD Location:[facility] Appointment Type: Open Future Scheduled Tests Laboratory* TSH With T4fr [facility] Diagnosis Parkinson's disease (HCC)- Primary Paralysis agitans documented in this encounter [facility]* Diagnosis Onset Date Resolution Status Atrial fibrillation acute Parkinson disease acute Syncope acute [facility] Work Phone: evalukaeyx note* Diagnosis No-show for appointment- Primary documented in [facility]* Diagnosis Motor fluctuations related to medication use in Parkinson's disease (HCC)- Primary Primary parkinsonism (HCC) Paralysis agitans [facility] noteNo assessment information availableBarn[facility]ville [facility] Work Phone: Evaluation note* Diagnosis Primary parkinsonism- Primary Paralysis agitans Fatigue, unspecified type documented in this encounter [facility]* Diagnosis Motor fluctuations related to medication use in Parkinson's disease documented in [facility]* Diagnosis Motor fluctuations related to medication use in Parkinson's disease- Primary documented in this [facility]* Diagnosis Persistent atrial fibrillation (CMS/HCC)- Primary Atrial fibrillation Complete heart block (CMS/HCC) Atrioventricular block, complete Abnormal echocardiogram Nonspecific (abnormal) findings on radiological and other examination of other intrathoracic organs Pacemaker Cardiac pacemaker in situ Pulmonary hypertension (CMS/HCC) Other chronic pulmonary heart diseases Chronic right heart failure (CMS/HCC) documented in this encounter [facility] Work Phone: Evaluation note* Diagnosis Persistent atrial fibrillation (CMS/HCC) Atrial fibrillation documented in this encounter [facility] Work Phone: Evaluation note* Diagnosis Onset Date Resolution Status Acute kidney injury acute Afib acute Dehydration acute Fall acute Hypothyroidism acute Parkinson disease acute Weakness acute [facility] Work Phone: Evaluation note* Diagnosis Primary parkinsonism- Primary Paralysis agitans Motor fluctuations related to medication use in Parkinson's disease documented in this encounter [facility]* Diagnosis Primary parkinsonism Paralysis agitans Motor fluctuations related to medication use in Parkinson's disease documented in this encounter [facility]* Diagnosis Muscle pain- Primary Mylagia and myositis, unspecified Encounter for other preprocedural examination Pain in left leg documented in this encounter [facility]* Diagnosis Persistent atrial fibrillation (CMS/HCC)- Primary Atrial fibrillation Complete heart block (CMS/HCC) Atrioventricular block, complete Chronic right heart failure (CMS/HCC) Pulmonary hypertension (CMS/HCC) Other chronic pulmonary heart diseases Pacemaker Cardiac pacemaker in situ Abnormal echocardiogram Nonspecific (abnormal) findings on radiological and other examination of other intrathoracic organs Anticoagulated Encounter for long-term (current) use of anticoagulants BMI 26.0-26.9,adult Former smoker Personal history of tobacco use, presenting hazards to health documented in this encounter [facility] Work Phone: Evaluation note* Diagnosis Primary parkinsonism (HCC) Paralysis agitans Motor fluctuations related to medication use in Parkinson's disease (HCC) documented in this encounter [facility] note* Diagnosis Leg pain, bilateral- Primary Pain in limb Primary parkinsonism (HCC) Paralysis agitans Abnormality of gait Tendonitis of knee, right Other synovitis and tenosynovitis documented in this encounter [facility] general Narrative - Reported* Type Description Date Medical History Syncope Medical History Atrial fibrillation Medical History Complete heart block Medical History Status post pacemaker Medical History Parkinson's disease Medical History Hypothyroidism Surgical History Pacemaker implantation 09/2022 Surgical History Removal of thyroid Surgical History Appendectomy Surgical History Dyke teeth Surgical History Tonsillectomy Hospitalization History See above Opt[employer] Other History of Present illness Narrative* Patient [...] does meet the criteria for statin therapy [facility] Work Phone: Hospital course Narrative No data available for this section [facility] Discharge instructions Additional Instructions Wound care daily: [...] with nurse for incision check in the [facility] on 10/03/2022 at 10:30am. 2. Chest x-ray to be done the same day as pacemaker check at [facility] 12/29/2022. 3. Pacemaker/ICD clinic appointment at [facility] 12/29/2022 at 10:00am. 4. Office visit with Dr. Cesar at [facility] in [place] on 01/11/2023 at 3:00pm. [][facility] Work Phone: Hospital Discharge instructions Additional Instructions No driving x 24 hoursBarn[facility]ville [facility] Work Phone: Hospital Discharge instructions No data available for this section [facility] instructionsAmbulatory Orders* Initiate Home Health Time Frame: 07/26/23, Location: Determined By Patient [facility] Work Phone: Progress note No data available for this section [facility]Reason for [facility] (narrative)* Diagnostic Procedure Only (Routine) - Pending Review Specialty Diagnoses / Procedures Referred By Nely garcia Referred To Contact US IMAGING Diagnoses Muscle pain Encounter for other preprocedural examination Pain in left leg Procedures US DVT LOWER BILATERAL DUP-SCAN XTR VEINS COMPLETE BILATERAL STUDY Efren Carbajal DO [address] [facility] [place] [place] [address] Us Imaging [facility] Referral ID Status Reason Start Date Expiration Date Visits Requested Visits Authorized [id number] Pending Review Auto-Generat ed Referral 10/25/2023 11/23/2024 1 1 [facility] Family History No Family History Records FoundUnknown Family Member Name Dates Details Family history [...] malignant neoplasm of prostate: Father(V16.42, Z80.42) Status:Active Relationship Condition Age at Onset Recorded Date/T sugar father Unknown Malignant neoplasm Unknown Not Specified Malignant neoplasm Unknown Unknown Summary Purpose Advance Directives No Advanced Directives Records Found Advance Directive Response Recorded Date/ Time Advance Directives No August 11:41am Advance Directive Response Recorded Date/ Time Advance Directives No August 12:41pm Chief Complaint Patient is here status post pacemaker insertion done by Dr. Roel Mireles MD at [facility] on 09/26/22.Dr. Nica García MD in suite. [...] done by Dr. Roel Mireles MD at [facility] on 09/26/22.Dr. Nica García MD in suite. [...] By Nely garcia Referred To Contact Diagnoses Leg pain, bilateral Primary parkinsonism (HCC) Abnormality of gait Tendonitis of knee, right Procedures PROVIDER ORDERED FOLLOW UP OFFICE/OUTPATIENT [facility] 60 MINUTES Efren Carbajal, [address] [place] [address] Referral ID Status Reason Start Date Expiration Date V isits Requested Visits Authorized [id number] Authorized 08/11/2024 11/09/2024 1 1 Specialty Diagnoses / Procedures Referred By Contac t Referred To [facility] Diagnoses Leg pain, bilateral Procedures US LEG VEIN DVT [facility] DUP-SCAN XTR VEINS COMPLETE BILATERAL STUDY Efren Carbajal DO [address] [place] [address] [facility] [place] [address] [place] [address] Referral ID Status Reason Start Date Expiration Date Visits Requested Visits Authorized [id number] New Request Auto-Generat ed Referral 02/09/2024 02/08/2025 1 1 Specialty Diagnoses / Procedures Referred By Contac t Referred To Contact Diagnoses Persistent atrial fibrillation (CMS/HCC) Procedures ECG 12 Lead Edel Cesar MD [address] [place] [address] 2, Aditya [address] [place], [place] [id number] Referral ID Status Reason Start Date Expiration Date V isits Requested Visits Authorized [id number] Pending Review 07/05/2023 07/04/2024 1 1 Specialty Diagnoses / Procedures Referred By Contac t Referred To Contact Cardiology Diagnoses Persistent atrial fibrillation (CMS/HCC) Complete heart block (CMS/HCC) Chronic right heart failure (CMS/HCC) Procedures Follow Up In Cardiology Edel Cesar MD [address] [place] [address] 2, [address] [address] Edel Cesar MD [address] [place] [address] 2, [place] [phone] Referral ID Status Reason Start Date Expiration Date V isits Requested Visits Authorized [id number] Authorized 07/05/2023 07/04/2024 1 1 Referral ID Status Reason Start Date Expiration Date V isits Requested Visits Authorized [id number] Pending Review 07/05/2023 07/04/2024 1 1 Specialty Diagnoses / Procedures Referred By Contac t Referred To Contact Diagnoses Primary parkinsonism Fatigue, unspecified type Procedures PROVIDER ORDERED FOLLOW UP OFFICE/OUTPATIENT NEW HIGH MDM 60-74 MINUTES Efren Carbajal DO [address] [place] [address] Referral ID Status Reason Start Date Expiration Date V isits Requested Visits Authorized [id number] Authorized 11/04/2023 02/02/2024 1 1 Additional Source Comments (unrecognized sect ion and content) No Status Records FoundNo Status Records FoundNo Status Records FoundNo Status Records FoundNo Status Records FoundNo Status Records FoundNo Status Records FoundNo Status Records FoundNo Status Records FoundNo Status Records FoundNo Status Records FoundNo Status Records Found INFORMATION SOURCE (unrecogn ized section and content) DATE CREATED AUTHOR 02/28/2022 [employer] DATE CREATED AUTHOR AUTHOR'S ORGANIZ ATION 12/11/2022 [facility] DATE CREATED AUTHOR AUTHOR'S ORGANIZ ATION 05/08/2023 [facility] DATE CREATED AUTHOR AUTHOR'S ORGANIZ ATION 05/18/2023 [facility] DATE CREATED AUTHOR AUTHOR'S ORGANIZ ATION 09/10/2023 [facility] DATE CREATED AUTHOR AUTHOR'S ORGANIZ ATION 12/02/2023 [facility] DATE CREATED AUTHOR AUTHOR'S ORGANIZ ATION 12/30/2023 [facility] DATE CREATED AUTHOR AUTHOR'S ORGANIZ ATION 01/06/2024 [facility] EPIC DATE CREATED AUTHOR AUTHOR'S ORGANIZ ATION 01/16/2024 [facility] DATE CREATED AUTHOR AUTHOR'S ORGANIZ ATION 01/21/2024 [facility] DATE CREATED AUTHOR AUTHOR'S ORGANIZ ATION 02/15/2024 [facility] l Source Comments (unrecognize d section and content) In the event this informatio n is protected by the Federal Confidentiality of Alcohol and Drug Abuse Patient Records regulations: The Federal rules restrict any use of the information to criminally investigate or prosecute any alcohol or drug abuse patient.[facility] HospitalIn the event this information is protected by the Federal Confidentiality of Alcohol and Drug Abuse Patient Records regulations: The Federal rules restrict any use of the information to criminally investigate or prosecute any alcohol or drug abuse patient.[facility] HospitalIn the event this information is protected by the Federal Confidentiality of Alcohol and Drug Abuse Patient Records regulations: The Federal rules restrict any use of the information to criminally investigate or prosecute any alcohol or drug abuse patient.[facility] HospitalIn the event this information is protected by the Federal Confidentiality of Alcohol and Drug Abuse Patient Records regulations: The Federal rules restrict any use of the information to criminally investigate or prosecute any alcohol or drug abuse patient.[facility] HospitalIn the event this information is protected by the Federal Confidentiality of Alcohol and Drug Abuse Patient Records regulations: The Federal rules restrict any use of the information to criminally investigate or prosecute any alcohol or drug abuse patient.[facility] HospitalIn the event this information is protected by the Federal Confidentiality of Alcohol and Drug Abuse Patient Records regulations: The Federal rules restrict any use of the information to criminally investigate or prosecute any alcohol or drug abuse patient.[facility] HospitalIn the event this information is protected by the Federal Confidentiality of Alcohol and Drug Abuse Patient Records regulations: The Federal rules restrict any use of the information to criminally investigate or prosecute any alcohol or drug abuse patient.[facility] HospitalIn the event this information is protected by the Federal Confidentiality of Alcohol and Drug Abuse Patient Records regulations: The Federal rules restrict any use of the information to criminally investigate or prosecute any alcohol or drug abuse patient.[facility] HospitalIn the event this information is protected by the Federal Confidentiality of Alcohol and Drug Abuse Patient Records regulations: The Federal rules restrict any use of the information to criminally investigate or prosecute any alcohol or drug abuse patient.[facility] HospitalIn the event this information is protected by the Federal Confidentiality of Alcohol and Drug Abuse Patient Records regulations: The Federal rules restrict any use of the information to criminally investigate or prosecute any alcohol or drug abuse patient.[facility] HospitalIn the event this information is protected by the Federal Confidentiality of Alcohol and Drug Abuse Patient Records regulations: The Federal rules restrict any use of the information to criminally investigate or prosecute any alcohol or drug abuse patient.[facility] HospitalIn the event this information is protected by the Federal Confidentiality of Alcohol and Drug Abuse Patient Records regulations: The Federal rules restrict any use of the information to criminally investigate or prosecute any alcohol or drug abuse patient.[facility] HospitalIn the event this information is protected by the Federal Confidentiality of Alcohol and Drug Abuse Patient Records regulations: The Federal rules restrict any use of the information to criminally investigate or prosecute any alcohol or drug abuse patient.[facility] HospitalIn the event this information is protected by the Federal Confidentiality of Alcohol and Drug Abuse Patient Records regulations: The Federal rules restrict any use of the information to criminally investigate or prosecute any alcohol or drug abuse patient.[facility] HospitalIn the event this information is protected by the Federal Confidentiality of Alcohol and Drug Abuse Patient Records regulations: The Federal rules restrict any use of the information to criminally investigate or prosecute any alcohol or drug abuse patient.[facility] HospitalIn the event this information is protected by the Federal Confidentiality of Alcohol and Drug Abuse Patient Records regulations: The Federal rules restrict any use of the information to criminally investigate or prosecute any alcohol or drug abuse patient.[facility] HospitalIn the event this information is protected by the Federal Confidentiality of Alcohol and Drug Abuse Patient Records regulations: The Federal rules restrict any use of the information to criminally investigate or prosecute any alcohol or drug abuse patient.[facility] HospitalIn the event this information is protected by the Federal Confidentiality of Alcohol and Drug Abuse Patient Records regulations: The Federal rules restrict any use of the information to criminally investigate or prosecute any alcohol or drug abuse patient.[facility] HospitalIn the event this information is protected by the Federal Confidentiality of Alcohol and Drug Abuse Patient Records regulations: The Federal rules restrict any use of the information to criminally investigate or prosecute any alcohol or drug abuse patient.[facility] HospitalIn the event this information is protected by the Federal Confidentiality of Alcohol and Drug Abuse Patient Records regulations: The Federal rules restrict any use of the information to criminally investigate or prosecute any alcohol or drug abuse patient.[facility] HospitalIn the event this information is protected by the Federal Confidentiality of Alcohol and Drug Abuse Patient Records regulations: The Federal rules restrict any use of the information to criminally investigate or prosecute any alcohol or drug abuse patient.[facility] Reason for Visit (unrecogniz ed section and content) Reason Onset Date Comments [facility] Neurology - Treatment Referral 06/24/2022 [employer] Insurance Authorization 06/24/2022 BERE palacio Pending Reason Comments Clinical Update Medication Question Reason Comments Medication Problem Reason Comments Patient Question Reason Comments No Show Reason Comments Parkinson's Disease Reason Onset Date Comments Refill Request 01/30/2023 Reason Comments Established Patient not sleeping Reason Onset Date Comments [facility] Neurology - [facility]/26/2023 BERE [place] fatou Reason Comments Follow-up 6 months Specialty Diagnoses / Procedures Referred By Contac t Referred To Contact Diagnoses Persistent atrial fibrillation ([facility]) Procedures ECG 12 Lead Edel Cesar MD [address] [place] [address], [address] [address] Referral ID Status Reason Start Date Expiration Date V isits Requested Visits Authorized [id number] Pending Review 07/05/2023 07/04/2024 1 1 Reason Comments Refill Request Reason Comments EKG visit Specialty Diagnoses / Procedures Referred By Contac t Referred To Contact Diagnoses Persistent atrial fibrillation ([facility]/HCC) Procedures ECG 12 Lead Edel Cesar MD [facility] [facility] [address], [address] [address] Referral ID Status Reason Start Date Expiration Date V isits Requested Visits Authorized [id number] Pending Review 07/07/2023 07/06/2024 1 1 Reason Onset Date Comments Refill Request 07/13/2023 Reason Comments Clarify C/L CR Reason Comments Follow-up [facility] 09/26/2023ekg Specialty Diagnoses / Procedures Referred By Contleatha t Referred To Contact Cardiology Diagnoses Persistent atrial fibrillation (CMS/HCC) Complete heart block (CMS/HCC) Chronic right heart failure (CMS/HCC) Procedures Follow Up In Cardiology Edel Cesar MD [address] [facility], [place] [address] [place] [id number] Edel Cesar MD [facility] [facility] [address], [address] [address] Referral ID Status Reason Start Date Expiration Date V isits Requested Visits Authorized [id number] Authorized 07/05/2023 07/04/2024 1 1 Reason Onset Date Comments Refill Request 02/07/2024 Reason Comments Established Patient Medication issue Care Teams (unrecognized sec tion and content) Team Status: Active Member Role Status Dates Amy Zuñiga MD Primary Care Provider Active Team Status: Inactive Member Role Status Dates Amy Zuñiga MD Primary Care Provider Active Jordan Gallegos DO Admit Provider, Attending Provider Active Ayana Fenton [...] Isidro MD Other Provider Active Marcia Clifton [facility] Other Provider Active Lisy Ugarte MD Other Provider Active Team Status: Inactive Member Role Status Dates Amy Zuñiga MD Primary Care Provider Active Jaylin Pradhan [facility] Attending Provider Active Team Status: Inactive Member Role Status Dates Amy Zuñiga MD Primary Care Provider Active Edel Cesar MD Attending Provider, Referring Provider Active Purchasing Manager Relationship Specialty Start Date End Date Amy Zuñiga MD [address] [id number] PCP - General 03/06/09 Purchasing Manager Relationship Specialty Start Date End Date Amy Zuñiga MD [address] [place] [address] PCP - General 03/06/09 Purchasing Manager Relationship Specialty Start Date End Date Amy Zuñiga MD [address] [place] [address] PCP - General 03/06/09 Pamela Briseno, FISHERIES TECHNICAL OFFICER.RAMP AGENT [address] [place] [address] Specialty Election Clerk Neurology 08/15/22 Purchasing Manager Relationship Specialty Start Date End Date Amy Zuñiga MD [address] [place] [address] PCP - General 03/06/09 Pamela Briseno, FISHERIES TECHNICAL OFFICER.RAMP AGENT [address] [place] [address] Specialty Election Clerk Neurology 08/15/22 Purchasing Manager Relationship Specialty Start Date End Date Amy Zuñiga MD [address] [place] [address] PCP - General 03/06/09 Pamela Briseno, FISHERIES TECHNICAL OFFICER.RAMP AGENT [address] [place] [address] Specialty Election Clerk Neurology 08/15/22 Team Status: Inactive Member Role Status Dates Amy Zuñiga MD Primary Care Provider Active Roel Mireles MD Attending Provider Active Purchasing Manager Relationship Specialty Start Date End Date Amy Zuñiga MD [address] [place] [address] PCP - General 03/06/09 Pamela Briseno, FISHERIES TECHNICAL OFFICER.RAMP AGENT [address] [place] [address] Specialty Election Clerk Neurology 08/15/22 Team Status: Active Member Role Status Dates Christo Orellana MD Primary Care Provider Active Team Status: Inactive Member Role Status Dates Roel Mireles MD Attending Provider Active Christo Orellana MD Primary Care Provider Active Purchasing Manager Relationship Specialty Start Date End Date Amy Zuñiga MD [address] [place] [address] PCP - General 03/06/09 Pamela Briseno APRN.RAMP AGENT [address] [place] [address] Specialty Election Clerk Neurology 08/15/22 Purchasing Manager Relationship Specialty Start Date End Date Amy Zuñiga MD [address] [place] [address] PCP - General 03/06/09 Pamela Briseno, FISHERIES TECHNICAL OFFICER.RAMP AGENT [address] [place] [address] Specialty Election Clerk Neurology 08/15/22 Purchasing Manager Relationship Specialty Start Date End Date Amy Zuñiga MD [address] [place] [address] PCP - General 03/06/09 Pamela Briseno FISHERIES TECHNICAL OFFICER.RAMP AGENT [address] [place] [address] Specialty Election Clerk Neurology 08/15/22 Purchasing Manager Relationship Specialty Start Date End Date Amy Zuñiga MD [address] [place] [address] PCP - General 10/03/22 Team Status: Inactive Member Role Status Dates Christo Orellana MD Primary Care Provider Active Roel Mireles MD Attending Provider Active Purchasing Manager Relationship Specialty Start Date End Date Amy Zuñiga MD [address] [facility] Amy Zuñ[place] [address] PCP - General 10/03/22 Team Status: Active Member Role Status Dates Christo Orellana MD Primary Care Provider Active David Reis PA-C Emergency Provider Active Ashwini Clancy MD Admit Provider, Attending Provider Active Team Status: Inactive Member Role Status Dates Christo Orellana MD Primary Care Provider Active David Reis PA-C Emergency Provider Active Ashwini Clancy MD Admit Provider, Attending Provider Active Team Status: Inactive Member Role Status Dates Christo Orellana MD Primary Care Provider Active Start: July 05, 2023 End: July 05, 2023 Roel Mireles MD Attending Provider Active Start: July 05, 2023 End: July 05, 2023 Team Status: Inactive Member Role Status Dates Christo Orellana MD Primary Care Provider Active Start: July 21, 2023 End: July 23, 2023 David Reis PA-C Emergency Provider Active Start: July 21, 2023 End: July 23, 2023 Ashwini Clancy MD Admit Provider, Atte nding Provider Active Start: July 21, 2023 End: July 23, 2023 Team Status: Inactive Member Role Status Dates Christo Orellana MD Primary Care Provider Active Start: August 31, 2023 End: August 31, 2023 Edel Cesar MD Attending Provider Active Start: August 31, 2023 End: August 31, 2023 Purchasing Manager Relationship Specialty Start Date End Date Amy Zuñiga MD [address] [facility] [address] PCP - General 03/06/09 Pamela Briseno APRN.RAMP AGENT [address] [place] [address] Specialty Election Clerk Neurology 08/15/22 Efren Carbajal DO [address] [place] [address] Specialty Election Clerk Neurology 07/19/23 Purchasing Manager Relationship Specialty Start Date End Date Amy Zuñiga MD [address] [place] [address] PCP - General 03/06/09 Pamela Briesno, FISHERIES TECHNICAL OFFICER.RAMP AGENT [address] [place] [address] Specialty Election Clerk Neurology 08/15/22 Efren Carbajal DO [address] [place] [address] Specialty Election Clerk Neurology 07/19/23 Purchasing Manager Relationship Specialty Start Date End Date Amy Zuñiga MD [address] [place] [address] PCP - General 03/06/09 Pamela Briseno, FISHERIES TECHNICAL OFFICER.RAMP AGENT [address] [place] [address] Specialty Election Clerk Neurology 08/15/22 Efren Carbajal DO [address] [place] [address] Specialty Election Clerk Neurology 07/19/23 Purchasing Manager Relationship Specialty Start Date End Date Amy Zuñiga MD [address] [place] [address] PCP - General 03/06/09 Pamela rBiseno APRN.RAMP AGENT [address] [place] [address] Specialty Election Clerk Neurology 08/15/22 Efren Carbajal DO [address] [place] [address] Specialty Election Clerk Neurology 07/19/23 Purchasing Manager Relationship Specialty Start Date End Date Amy Zuñiga MD [address] [place] [address] PCP - General 03/06/09 Pamela Briseno APRN.RAMP AGENT [address] [place] [address] Specialty Election Clerk Neurology 08/15/22 Efren Carbajal DO [address] [place] [address] Specialty Election Clerk Neurology 07/19/23 Purchasing Manager Relationship Specialty Start Date End Date Christo Orellana MD [address] [place] [address] [place] [address] PCP - General Family Medicine 11/07/23 Team Status: Inactive Member Role Status Dates Christo Orellana MD Primary Care Provider Active Start: January 03, 2024 End: January 03, 2024 Roel Mireles MD Attending Provider Active Start: January 03, 2024 End: January 03, 2024 Purchasing Manager Relationship Specialty Start Date End Date Amy Zuñiga MD [address] [place] [address] PCP - General 03/06/09 Pamela Briseno APRN.RAMP AGENT [address] [place] [address] Specialty Election Clerk Neurology 08/15/22 Efren Carbajal DO [address] [place] [address] Specialty Election Clerk Neurology 07/19/23 Purchasing Manager Relationship Specialty Start Date End Date Amy Zuñiga MD [address] [place] [address] PCP - General 03/06/09 Pamela Briseno APRN.RAMP AGENT [address] [place] [address] Specialty Election Clerk Neurology 08/15/22 Efren Carbajal DO [address] [place] [address] Specialty Election Clerk Neurology 07/19/23 Goals (unrecognized section and content) [...] BE BASED ON THE PRIMARY CLINICAL RECORDS. [employer] [facility]. provides no warranty or guarantee of the accuracy or completeness of information in this document.
== END 2024-02-28 15:00 | disposition home or self-care (01) ==
LOC: US 15:00
PROVIDERS: PCP Family Medicine
DX: M79.604 Pain in right leg (principal); M79.605 Pain in left leg
CPT/HCPCS: 93970

== ENCOUNTER 2024-07-17 11:41 | Day surgery (SDC) | payer MEDICARE, SELFPAY ==
--- NOTE | 2024-07-17 | OP_ITS ---
OPERATION DATE: 07/17/2024 PREOPERATIVE DIAGNOSIS: Enlarging subcutaneous nodule right forehead/scalp. POSTOPERATIVE DIAGNOSIS: Enlarging subcutaneous nodule right forehead scalp with solid nodule in the subcutaneous area. PROCEDURE: Incisional biopsy of subcutaneous nodule right forehead/scalp. SURGEON: Brayan Persaud M.D. ANESTHESIA: Local with 0.5% Marcaine plain. ESTIMATED BLOOD LOSS: Less than 10 mL. 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 He does have a history of multiple skin cancers on the head and neck. Indications, risks, benefits, alternatives of proceeding with excisional biopsy under local anesthesia were extensively to the patient, including risks of bleeding, infection, scarring, pain, recurrence or need for further surgery. All of his questions were answered. Informed consent was obtained. PROCEDURE: Patient brought to the procedure room, placed in the supine position. The area was prepped and draped in the usual sterile fashion. It was anesthetized with 0.5% Marcaine plain. The lesion was approximately 3 cm in greatest diameter. A 1.5 cm elliptical incision was made over the central aspect of the lesion, which appeared to be somewhat fluctuant. There was noted to be solid, grayish material making up the majority of the lesion, as well as some cystic area in the center, which may have been necrosis. A central area was wedged out, taking a large portion of the central portion of the mass, in order to close the area. It was irregular and extended deeper; therefore, could not be completely excised under local anesthesia. Hemostasis was achieved in the subcutaneous tissues with some interrupted 4-0 Monocryl suture. The specimen was sent off to Pathology. The incision was then closed with 4-0 nylon mattress and simple sutures, as well as skin glue. A sterile pressure dressing was applied. Sponge and needle counts were correct x3 per nursing personnel. Patient tolerated procedure well, was sent back to recovery area and then discharged to home in good condition. He is to follow up in one week for wound check and possible suture removal. CC: Dr. Kaiser COLLADO
[2024-07-17 12:52] VITALS: BP 163/84; BP 167/85; PULSE 70; O2SAT 98; O2SAT 99
[2024-07-17] MEDS: BUPIVACAINE HCL 0.5% PF 50 MG/10 ML VIAL INJ (13:23)
== END 2024-07-17 13:34 | disposition home or self-care (01) ==
PROVIDERS: PCP Family Medicine; Visit Provider Surgery
PROC: (CPT 11106; principal; 2024-07-17 12:25)
DX: C44.329 Squamous cell carcinoma of skin of other parts of face (principal); I48.19 Other persistent atrial fibrillation; G20.A1 Parkinson's disease without dyskinesia, without mention of fluctuations; F02.80 Dementia in other diseases classified elsewhere, unspecified severity, without behavioral disturbance, psychotic disturbance, mood disturbance, and anxiety; K21.9 Gastro-esophageal reflux disease without esophagitis; E03.9 Hypothyroidism, unspecified; I25.10 Atherosclerotic heart disease of native coronary artery without angina pectoris; E78.00 Pure hypercholesterolemia, unspecified; G47.33 Obstructive sleep apnea (adult) (pediatric); Z85.038 Personal history of other malignant neoplasm of large intestine; Z85.46 Personal history of malignant neoplasm of prostate; Z95.0 Presence of cardiac pacemaker; Z79.01 Long term (current) use of anticoagulants; Z92.3 Personal history of irradiation; Z79.899 Other long term (current) drug therapy; Z79.890 Hormone replacement therapy; Z85.828 Personal history of other malignant neoplasm of skin; Z87.891 Personal history of nicotine dependence; Z80.42 Family history of malignant neoplasm of prostate
CPT/HCPCS: 11106; 12051; J0665